=== PATIENT | male | born 1945 | race Caucasian/White ===

== ENCOUNTER 2019-12-24 12:02 | Outpatient (CLI) | payer MEDICARE, BC, SELFPAY ==
--- NOTE | ~2019-12-24 | XR_ITS ---
XR cervical spine 4-5V DATE: 12/24/2019 12:27 INDICATION: Neck pain and radiculopathy TECHNIQUE: AP, lateral, swimmers, open mouth views COMPARISON: 08/03/2018 cervical spine FINDINGS: Normal alignment of the cervical spine. C1 and C2 are normally aligned and the odontoid pro cess is intact. No fracture, dislocation, locked facet or prevertebral soft tissue swelling. There is mild degenerative disc disease at C4-5 and C5-6 and moderately prominent degenerative diseas e at C6-7. IMPRESSION: Mild degenerative change Reviewed, dictated and finalized at location B. TUBING BACKER IMPRESSION: Mild degenerative change
== END 2019-12-24 12:03 | disposition home or self-care (01) ==
PROVIDERS: PCP Internal Medicine; Visit Provider Pain Medicine Interventional Pain Medicine
DX: M54.12 Radiculopathy, cervical region (principal)
CPT/HCPCS: 72050

== ENCOUNTER → 2020-01-10 14:49 | Outpatient (REF) | payer MEDICARE, SELFPAY | LOC: ANHLAB 14:49 | PROVIDERS: PCP Internal Medicine; Visit Provider Nurse Practitioner | DX: D49.2 Neoplasm of unspecified behavior of bone, soft tissue, and skin (principal) | CPT/HCPCS: 88305 ==

== ENCOUNTER 2020-01-12 14:32 | Emergency (ER) | payer MEDICARE, SELFPAY ==
[2020-01-12] VITALS (8 sets, daily range): BP systolic 130–168; BP diastolic 57–77; PULSE 57–80; RESP 11–16; TEMP 36.7; O2SAT 92–98
--- NOTE | ~2020-01-12 | CT_ITS ---
EXAMINATION: CT abdomen pelvis w con EXAM DATE: 01/12/2020 16:37 INDICATION: Epigastric pain. TECHNIQUE: Spiral CT of the abdomen and pelvis was performed following intravenous injection of 100 m L Omnipaque 350. Axial, coronal and sagittal images were reviewed. The dose-length product (DLP) fo r this examination was 1655.26 mGy-cm. The exposure was tailored according to patient size (auto mA exposure control), and iterative reconstruction (ASIR) was used as additional dose reduction techniqu e. There is no prior study for comparison. FINDINGS: There is hepatic steatosis without suspicious focal lesion identified. Spleen, adrenal glan ds, pancreas are unremarkable. There are cholecystectomy clips. Portal and splenic veins are patent . Kidneys enhance symmetrically. There is no hydronephrosis. There are prostate radiation seeds. The bladder is unremarkable. There is no retroperitoneal or pelvic lymphadenopathy. There is mild scattered arteriosclerotic disease. Possible identification of an unremarkable appendix. No pericecal inflammation. The stomach and smal l bowel are unremarkable. There is mild sigmoid colonic diverticulosis. There is no adjacent inflamm atory change to suggest diverticulitis. No free intraperitoneal gas. The heart is normal in size. There are no pericardial or pleural effusions. The lung bases are unremarkable. There are no osteo blastic or osteolytic lesions identified. Right posterior pedicular screws L4-5. IMPRESSION: 1. No acute intra-abdominal findings. 2. Mild sigmoid diverticulosis. 3. Hepatic steatosis. Reviewed, dictated and finalized at location B. TRUCTION MGR
--- NOTE | ~2020-01-12 | US_ITS ---
EXAMINATION: US scrotum doppler DATE: 01/12/2020 15:14 INDICATION: Bilateral testicular pain. TECHNIQUE: Grayscale and Doppler ultrasound images of the testes were obtained. COMPARISON: None. FINDINGS: The right testis measures 3.4 x 2.4 x 1.9 cm. The left testis measures 2.7 x 3.9 x 1.5 cm. There is normal vascular flow to both testes. The right epididymis is normal with normal vascular guillermo w. The left epididymis is normal with normal vascular flow. There is no varicocele or hydrocele. IMPRESSION: 1. Normal testes. Reviewed, dictated and finalized at location A. ING MACHINE ADJUSTER IMPRESSION: 1. Normal testes.
--- NOTE | 2020-01-12 14:40 | ED.NAVMDI ---
HPI - Nausea/Vomiting/Diarrhea General Chief complaint: Abdominal Pain Stated complaint: NAUSEA X3D Time Seen by Provider: 01/12/20 14:33 Source: patient, family and RN notes reviewed Mode of arrival: wheelchair Limitations: no limitations History of Present Illness HPI Narrative: A 74 y/o male presents to the ED from Dr. Pretty office with ANDRÉS testicle and scrotal pain for the past couple days. He states that he had a abscess removed from around his rectum 2 days ago. He reports that he has been having a decreased appetite, a subjective fever, chills, nausea, and upper ABD pain for the past couple days. He denies any dysuria, hematuria, CP, vomiting, diarrhea had a abscess removed 2 days ago by urinating less and dry mouth prostates cancer, cardiac cath with stent, DM, on plavix hasn't been able to take his meds for 2 days Related Data Home Medications Medication Instructions Recorded Confirmed albuterol sulfate 90 mcg/actuation g INHALATION 11/08/19 aerosol inhaler atorvastatin 40 mg tablet 40 mg PO tablet 11/08/19 cholestyramine-aspartame 4 gram 4 gm PO gm 11/08/19 oral powder clopidogrel 75 mg tablet 75 mg PO tablet 11/08/19 glimepiride 2 mg tablet 2 mg PO tablet 11/08/19 hydrochlorothiazide 25 mg tablet 25 mg PO tablet 11/08/19 hydrocodone 7.5 mg-acetaminophen 1 tablet PO tablet 11/08/19 325 mg tablet isosorbide mononitrate 30 mg tablet PO 11/08/19 tablet,extended release 24 hr lisinopril 10 mg tablet 10 mg PO tablet 11/08/19 methotrexate sodium 2.5 mg tablet 2.5 mg PO tablet 11/08/19 midodrine 5 mg tablet 5 mg PO tablet 11/08/19 omeprazole 40 mg capsule,delayed 40 mg PO cap 11/08/19 release Allergies Allergy/AdvReac Type Severity Reaction Status Date / Time fentanyl Allergy Unknown Itching Verified 01/12/20 14:07 tramadol Allergy Unknown Itching Verified 01/12/20 14:07 [facility] Past Medical History Medical History Abdominal pain Abscess, gluteal, right Anxiety Arthritis Biliary tract disease BMI 37.0-37.9, adult Bronchitis Depression Diabetic neuropathy DM (diabetes mellitus) GERD (gastroesophageal reflux disease) H/O: HTN (hypertension) History of heart attack mild x2. History of inguinal hernia History of rectal polyps Hx of hemorrhoids Hypercholesteremia Hyperlipidemia Nausea Proctitis Prostate CA Rheumatoid arthritis Sciatica Sleep apnea Ulcer Surgical History Surgical History H/O cataract removal with insertion of prosthetic lens History of cholecystectomy History of inguinal hernia repair History of rectal polypectomy History of tonsillectomy History of vasectomy Hx of bilateral cataract extraction Hx of cardiac cath Hx of heart artery stent Hx of spinal fusion x2. Family History Family History Father Asthma Family history of cardiovascular disease Mother Family history of cardiovascular disease Family history of arthritis Family history of Alzheimer's disease Family history of malignant neoplasm of kidney Other Diabetes mellitus Hypertension Social History Social History Smoking status: Former smoker Smoking end date: 11/17/89 Alcohol intake: current Gender identity (if verbalized by the patient): Male Discharge Plan Discharge Prescriptions: No Action hydrocodone-acetaminophen 7.5-325 mg tablet 1 tablet PO RF: 0 midodrine 5 mg tablet 5 mg PO RF: 0 glimepiride 2 mg tablet 2 mg PO RF: 0 atorvastatin 40 mg tablet 40 mg PO RF: 0 methotrexate sodium 2.5 mg tablet 2.5 mg PO RF: 0 isosorbide mononitrate 30 mg tablet extended release 24 hr PO RF: 0 omeprazole 40 mg capsule,delayed release(DR/EC) 40 mg PO RF: 0 lisinopril 10 mg tablet 10 mg PO RF: 0 hydrochlorothiazide
--- NOTE | 2020-01-12 15:25 | ED.MALEGU ---
HPI - Male Genitourinary General Chief complaint: Abdominal Pain Stated complaint: NAUSEA X3D Time Seen by Provider: 01/12/20 14:33 Source: patient, family and RN notes reviewed Mode of arrival: wheelchair Limitations: no limitations History of Present Illness HPI Narrative: A 74 y/o male presents to the ED from Dr. Pretty office with worsening ANDRÉS testicle for the past couple days. He states that he had a perirectal abscess removed 3 days ago. He reports that he has been having a decreased appetite, dry mouth, a subjective fever, chills, nausea, and upper ABD pain for the past couple days. He notes that he is supposed to be taking Plavix and medication for his DM, but that for the past 2 days he has not been able to take them because he has felt too nauseas. He denies any dysuria, hematuria, CP, vomiting, or diarrhea. MD Complaint: testicle pain (ANDRÉS) Onset (ago): day(s) (a couple) Duration: progressively worsening Location: right testicle and left testicle Context: recent surgery Associated symptoms: Reports fever (subjective), nausea/vomiting (no vomiting) and other (decreased appetite, dry mouth, chills, and upper ABD pain) Related Data Home Medications Medication Instructions Recorded Confirmed albuterol sulfate 90 mcg/actuation g INHALATION 11/08/19 aerosol inhaler atorvastatin 40 mg tablet 40 mg PO tablet 11/08/19 cholestyramine-aspartame 4 gram 4 gm PO gm 11/08/19 oral powder clopidogrel 75 mg tablet 75 mg PO tablet 11/08/19 glimepiride 2 mg tablet 2 mg PO tablet 11/08/19 hydrochlorothiazide 25 mg tablet 25 mg PO tablet 11/08/19 hydrocodone 7.5 mg-acetaminophen 1 tablet PO tablet 11/08/19 325 mg tablet isosorbide mononitrate 30 mg tablet PO 11/08/19 tablet,extended release 24 hr lisinopril 10 mg tablet 10 mg PO tablet 11/08/19 methotrexate sodium 2.5 mg tablet 2.5 mg PO tablet 11/08/19 midodrine 5 mg tablet 5 mg PO tablet 11/08/19 omeprazole 40 mg capsule,delayed 40 mg PO cap 11/08/19 release Allergies Allergy/AdvReac Type Severity Reaction Status Date / Time fentanyl Allergy Unknown Itching Verified 02/26/20 15:24 tramadol Allergy Unknown Itching Verified 01/12/20 15:24 Review of Systems Review of Systems: All systems reviewed & are unremarkable except as noted in HPI and below Constitutional: Constitutional: Reports chills, Reports fever(s) (subjective) and Reports poor appetite ENT: Reports dry mouth Cardiovascular: Cardiovascular: Denies chest pain Gastrointestinal: Gastrointestinal: Reports abdominal pain (upper), Denies diarrhea, Reports nausea and Denies vomiting Genitourinary: Genitourinary: Denies hematuria, Denies dysuria and Reports testicular pain (ANDRÉS) [facility] Past Medical History Medical History Abdominal pain Abscess, gluteal, right Anxiety Arthritis Biliary tract disease BMI 37.0-37.9, adult Bronchitis Depression Diabetic neuropathy DM (diabetes mellitus) GERD (gastroesophageal reflux disease) H/O: HTN (hypertension) History of heart attack mild x2. History of inguinal hernia History of rectal polyps Hx of hemorrhoids Hypercholesteremia Hyperlipidemia Nausea Proctitis Prostate CA Rheumatoid arthritis Sciatica Sleep apnea Ulcer Surgical History Surgical History H/O cataract removal with insertion of prosthetic lens History of cholecystectomy History of inguinal hernia repair History of rectal polypectomy History of tonsillectomy History of vasectomy Hx of bilateral cataract extraction Hx of cardiac cath Hx of heart artery stent Hx of spinal fusion x2. Family History Family History Father Asthma Family history of cardiovascular disease Mother Family history of cardiovascular disease Family history of arthritis Family history of Alzheimer's disease Family history of malignant neoplasm of kidney
[2020-01-12] MEDS: SODIUM CHLORIDE 0.9% IV 1,000 ML 999 ML IV CONT (15:37)
[2020-01-12] MEDS: ONDANSETRON INJ 4 MG/2 ML VIAL IV PUSH (15:38)
[2020-01-12] MEDS: MORPHINE SULFATE 4 MG/ML INJ IV PUSH (15:42)
[2020-01-12 15:47] LABS: Basophils Percent Auto 0.3 % (0.2-1.2); Eosinophils Percent Auto 0.5 % (0-4.4); Hematocrit 40.9 % (42.0-52.0); Hemoglobin 13.7 g/dL (14.0-18.0); Immature Granulocyte Absolute 0.03 K/mm3 (0.00-0.031); Immature Granulocyte Percent A 0.4 % (0-0.5); Lymphocytes Absolute Auto 0.37 K/mm3 (0.9-3.2); Mean Corpuscular HGB Conc 33.5 g/dl (32-36); Mean Corpuscular Hemoglobin 29.8 pg (26-34); Mean Corpuscular Volume 89.1 fl (80-100); Mean Platelet Volume 9.7 fl (7.4-10.4); Monocytes Absolute Auto 0.7 K/mm3 (0.1-0.6); Neutrophils Absolute Auto 6.2 K/mm3 (1.3-6.7); Neutrophils Percent Auto 83.8 % (45.5-73.1); Platelet Count Result 239 k/mm3 (150-375); Red Blood Count 4.59 M/mm3 (4.6-6.20); Red Cell Distribution Width 15.5 % (11.5-14.5); White Blood Count 7.4 K/mm3 (4.5-10.0)
[2020-01-12 15:53] LABS: Alanine Aminotransferase 30 U/L (4-50); Albumin Level 4.3 g/dL (3.5-5.1); Alkaline Phosphatase 119 U/L (38-126); Aspartate Amino Transferase 32 U/L (17-59); Bilirubin,Total 0.7 mg/dL (0.2-1.3); Blood Urea Nitrogen 20 mg/dL (9-20); Calcium 9.5 mg/dL (8.4-10.2); Carbon Dioxide 27 mmol/L (22-30); Chloride 97 mmol/L (98-107); Estimated CRCL calculation 78 ml/min; Estimated Glomerular Filt Rate > 60; Glucose 191 mg/dL (75-110); Lipase 63 U/L (23-300); Potassium 4.4 mmol/L (3.4-5.0); Sodium 136 mmol/L (137-145)
[2020-01-12 15:54] LABS: Lactic Acid Reflex 1.2 mmol/L (0.7-2.1)
[2020-01-12 16:29] LABS: Prothrombin Time 13.1 Seconds (11.1-14.7)
[2020-01-12 16:30] LABS: Partial Thromboplastin Time 29.5 SECONDS (22.3-36.8)
[2020-01-12] MEDS: SODIUM CHLORIDE 0.9% IV 1,000 ML 999 ML (17:13)
[2020-01-12 17:14] LABS: Add Urine Microscopic? YES; Appearance Urine Clear (Clear); Bilirubin Urine Negative (Negative); Blood Urine Negative (Negative); Color Urine Yellow (Yellow); Glucose Urine UA 3+ mg/dL (Negative); Ketones Urine 1+ mg/dL (Negative); Leukocyte Esterase Ur Negative LEU/UL (Negative); Mucus Urine Rare /lpf; Nitrate Urine Negative (Negative); Protein Urine Negative (Negative); RBC Urine 0-2 /hpf (0-2); Urobilinogen Urine Negative mg/dL (<2.0); WBC Urine 0-3 /hpf
== END 2020-01-12 18:57 | disposition home or self-care (01) ==
PROVIDERS: Emergency Provider Emergency Medicine; PCP Internal Medicine
DX: R10.13 Epigastric pain (principal); N50.812 Left testicular pain; N50.811 Right testicular pain; Z87.891 Personal history of nicotine dependence; F41.9 Anxiety disorder, unspecified; M19.90 Unspecified osteoarthritis, unspecified site; F32.9 Major depressive disorder, single episode, unspecified; E11.42 Type 2 diabetes mellitus with diabetic polyneuropathy; K21.9 Gastro-esophageal reflux disease without esophagitis; E78.5 Hyperlipidemia, unspecified; G47.30 Sleep apnea, unspecified
CPT/HCPCS: 36415; 74177; 76870; 80053; 81001; 83605; 83690; 85025; 85610; 85730; 87804; 93976; 96361; 96374; 96375; 99284; J2270; J2405; J7030; Q9967

== ENCOUNTER 2020-01-21 11:48 | Inpatient (IN) | payer MEDICARE, SELFPAY ==
--- NOTE | 2020-01-21 12:55 | ADMGEN ---
This patient, Kameron Man, was admitted to [facility] Surg Room 300-01. Patient/family oriented to hospital policies and general routines including ID bracelet, bed and alarms, visiting hours, pain management, procedures, bathroom and other care routines, personal items, smoking policy, room service/diet, and visiting hours. Valuables list has been completed. Information on how to activate the Rapid Response Team has been discussed. Patient/Family are encouraged to report perceived risks to care and to ask questions if they do not understand what they are told or what they should do.
[2020-01-21 13:02] LABS: Basophils Percent Auto 0.4 % (0.2-1.2); Eosinophils Absolute Auto 0.1 K/mm3 (0-0.3); Eosinophils Percent Auto 1.6 % (0-4.4); Hematocrit 39.3 % (42.0-52.0); Hemoglobin 13.1 g/dL (14.0-18.0); Immature Granulocyte Absolute 0.04 K/mm3 (0.00-0.031); Immature Granulocyte Percent A 0.6 % (0-0.5); Lymphocytes Absolute Auto 0.36 K/mm3 (0.9-3.2); Lymphocytes Percent Auto 5.4 % (18.3-44.2); Mean Corpuscular HGB Conc 33.3 g/dl (32-36); Mean Corpuscular Hemoglobin 29.4 pg (26-34); Mean Corpuscular Volume 88.3 fl (80-100); Mean Platelet Volume 9.8 fl (7.4-10.4); Monocytes Absolute Auto 0.6 K/mm3 (0.1-0.6); Monocytes Percent Auto 8.8 % (2.6-8.5); Neutrophils Absolute Auto 5.5 K/mm3 (1.3-6.7); Neutrophils Percent Auto 83.2 % (45.5-73.1); Platelet Count Result 267 k/mm3 (150-375); Red Blood Count 4.45 M/mm3 (4.6-6.20); Red Cell Distribution Width 15.5 % (11.5-14.5); White Blood Count 6.7 K/mm3 (4.5-10.0)
[2020-01-21 13:17] LABS: Alanine Aminotransferase 28 U/L (4-50); Albumin Level 4.2 g/dL (3.5-5.1); Alkaline Phosphatase 111 U/L (38-126); Aspartate Amino Transferase 30 U/L (17-59); Bilirubin,Total 0.5 mg/dL (0.2-1.3); Blood Urea Nitrogen 17 mg/dL (9-20); CRP 0.9 mg/dL (<1.0); Calcium 9.1 mg/dL (8.4-10.2); Carbon Dioxide 27 mmol/L (22-30); Chloride 100 mmol/L (98-107); Estimated Glomerular Filt Rate > 60; Glucose 201 mg/dL (75-110); Potassium 4.7 mmol/L (3.4-5.0); Sodium 136 mmol/L (137-145)
[2020-01-21 14:00] VITALS: BP 135/71; PULSE 65; RESP 18; TEMP 36.2; O2SAT 99
[2020-01-21 14:40] LABS: Glucose Point of Care 182 (65-105)
[2020-01-21 15:45] VITALS: BP 153/73; PULSE 85; RESP 18; TEMP 36.5; O2SAT 100
--- NOTE | 2020-01-21 17:00 | PM.IMHP ---
H&P: HPI History of Present Illness Chief complaint: Anorexia, nausea, abdominal pain. Narrative: Kameron Man is a pleasant 74-year-old male with multiple medical problems including coronary artery disease with history of stents, hypertension, rheumatoid arthritis, prostate cancer with history of external radiation, insulin-dependent type 2 diabetes mellitus, obstructive sleep apnea, and chronic back pain who is being directly admitted from Dr. Pretty' office for further evaluation of anorexia, nausea, and abdominal pain. On January 10, 2020, he had a ruptured epidermal inclusion cyst excised from the right buttock, and at that time he was experiencing some nausea. Unfortunately, the nausea has persisted and is now a daily occurrence, at times severe. His appetite has been extremely poor, and he reports an 11 pound weight loss since that time. He saw Dr. Pretty in follow-up on January 12, and he was concerned that the patient was becoming dehydrated and thus referred him to the emergency department. A CT of the abdomen pelvis showed no acute findings. The patient also mentioned some discomfort in his left testicle, and a subsequent scrotal ultrasound was performed which was also unremarkable. He received 2 liters of IV fluids and antiemetics, and felt somewhat better on discharge. That night when he got home, however, he had an episode of emesis and the pattern continued, with severe nausea and poor oral intake. He saw Dr. Pretty again on January 14 and he was started on Levaquin for suspected epididymitis given tenderness on exam. After the 1st couple of days of Levaquin, he thought he was feeling a bit better, but his symptoms have since returned. It should be noted that he was on doxycycline prior to the Levaquin, presumably for the ruptured cyst on his buttock. In any regard, we were contacted today to directly admit the patient to the hospital for further workup. At the time my evaluation, the patient is sitting at the side of the bed and is trying to eat soup and Jell-O. He seems depressed and even a bit despondent. When I bring this up, he does admit that he has been getting the ?blahs and tells me that sometimes I will cry at the drop of a hat.? In fact, he was started on Cymbalta several weeks due to this. He cannot pinpoint any certain event, and it sounds more so like a culmination of things, including his chronic medical problems and chronic pain. He is not certain that his symptoms are related to the ?blahs or the Cymbalta, and states that he has been on Cymbalta previously without issue. Due to the ongoing nausea, he has been concerned about dehydration and has been trying to stay hydrated by drinking Poweraid and diet tamia lilian. With further questioning, he reports discomfort in the epigastrium that he has a difficult time describing. It is not necessarily a burning or gnawing sensation. It does not radiate and he gives no significant alleviating or aggravating factors. He does not see any relation to food. He has a history of GERD for which he takes omeprazole, but he goes on to say that he does not think that this is GERD. He will occasionally have dysphagia, mainly with pills, but denies concerns for aspiration. He had a couple of loose stools yesterday but did have a formed stool this morning. He also mentions discomfort of the left testicle when sitting, and says he has had several occurrences of left-sided epididymitis over the years. He has not had fever but did have chills last week. He denies hematemesis, melena, and hematochezia. No dysuria or hematuria. He has no history of peptic ulcer. He does not consume caffeine or alcohol in significant quantities. He is on a baby aspirin and Plavix daily, but denies other NSAID use. Review of Systems Review of Systems: Narrative: Twelve systems were reviewed with pertinent positives and negatives as per HPI. Chills last week but no documented fever. He denies sinus congestion
[2020-01-21 17:30] VITALS: BP 140/69; PULSE 88; RESP 18; TEMP 36.5; O2SAT 100
[2020-01-21 17:45] VITALS: BP 126/69; PULSE 100; RESP 18; TEMP 36.4; O2SAT 100
[2020-01-21 19:01] LABS: Glucose Point of Care 158 (65-105)
[2020-01-21] MEDS: MIDODRINE HCL 2.5 MG TABLET 5 MG PO (20:43)
[2020-01-21] MEDS: INSULIN HUMAN ISOPHAN/REGULAR 70/30 (*BKC) 100 UNITS/ML 80 UNITS SUB-Q (20:43)
[2020-01-21] MEDS: GABAPENTIN 300 MG CAPSULE 900 MG PO (20:44)
[2020-01-21] MEDS: GLIMEPIRIDE 2 MG TABLET PO (20:44)
[2020-01-21] MEDS: calcium polycarbophiL 625 MG TABLET PO (20:44)
[2020-01-21] MEDS: PANTOPRAZOLE SODIUM IV 40 MG VIAL IV PUSH (20:44)
[2020-01-21] MEDS: SODIUM CHLORIDE 0.9% IV 1,000 ML 100 ML IV CONT (20:58)
[2020-01-21 22:00] VITALS: BP 110/61; PULSE 75; RESP 20; TEMP 37; O2SAT 95; BMI 42.2
[2020-01-21 22:25] LABS: Glucose Point of Care 147 (65-105)
--- NOTE | 2020-01-21 23:40 | PCRCNOTE ---
patient refused use of hospital cpap/bipap unit; pt stated that he can not tolerate his home unit and that he has not used it in years
[2020-01-22 00:59] LABS: Add Urine Microscopic? YES; Appearance Urine Clear (Clear); Bilirubin Urine Negative (Negative); Blood Urine Negative (Negative); Color Urine Straw (Yellow); Glucose Urine UA 3+ mg/dL (Negative); Ketones Urine Negative (Negative); Leukocyte Esterase Ur Negative LEU/UL (Negative); Mucus Urine Rare /lpf; Nitrate Urine Negative (Negative); Protein Urine Negative (Negative); Urobilinogen Urine Negative mg/dL (<2.0); WBC Urine 0-3 /hpf
[2020-01-22 05:32] LABS: Glucose Point of Care 73 (65-105)
[2020-01-22 06:00] VITALS: BP 123/63; PULSE 70; RESP 20; TEMP 36.6; O2SAT 94
[2020-01-22 06:27] LABS: Hematocrit 36.5 % (42.0-52.0); Mean Corpuscular HGB Conc 32.9 g/dl (32-36); Mean Corpuscular Hemoglobin 29.2 pg (26-34); Mean Corpuscular Volume 88.8 fl (80-100); Platelet Count Result 243 k/mm3 (150-375); Red Blood Count 4.11 M/mm3 (4.6-6.20); Red Cell Distribution Width 15.4 % (11.5-14.5)
[2020-01-22 06:39] LABS: Blood Urea Nitrogen 14 mg/dL (9-20); Calcium 8.8 mg/dL (8.4-10.2); Carbon Dioxide 29 mmol/L (22-30); Chloride 102 mmol/L (98-107); Estimated CRCL calculation 89 ml/min; Estimated Glomerular Filt Rate > 60; Glucose 70 mg/dL (75-110); Potassium 3.6 mmol/L (3.4-5.0); Sodium 136 mmol/L (137-145)
[2020-01-22] MEDS: ATORVASTATIN 40 MG TABLET PO (09:01)
[2020-01-22] MEDS: ASPIRIN 81 MG ENTERIC TABLET PO (09:01)
[2020-01-22] MEDS: MULTIVITAMINS THERAPEUTIC TAB (*BKC) 1 TABLET PO (09:01)
[2020-01-22] MEDS: CHOLECALCIFEROL 1,000 UNIT TABLET 2000 UNITS PO (09:01)
[2020-01-22] MEDS: calcium polycarbophiL 625 MG TABLET PO ×2 (09:01→17:13)
[2020-01-22] MEDS: OMEGA 3 POLYUNSAT FATTY ACIDS 1 GM CAP PO (09:01)
[2020-01-22] MEDS: MIDODRINE HCL 2.5 MG TABLET 5 MG PO ×2 (09:01→20:49)
[2020-01-22] MEDS: FOLIC ACID 0.4 MG TABLET 0.8 MG PO (09:01)
[2020-01-22] MEDS: CLOPIDOGREL BISULFATE 75 MG TABLET PO (09:02)
[2020-01-22] MEDS: GABAPENTIN 300 MG CAPSULE 900 MG PO ×2 (09:02→20:49)
[2020-01-22] MEDS: lisinopriL 10 MG TABLET PO (09:02)
[2020-01-22] MEDS: PANTOPRAZOLE SODIUM IV 40 MG VIAL IV PUSH ×2 (09:03→20:49)
[2020-01-22] MEDS: INSULIN HUMAN ISOPHAN/REGULAR 70/30 (*BKC) 100 UNITS/ML 50 UNITS SUB-Q (09:13)
--- NOTE | 2020-01-22 09:14 | WPDURCON ---
Assessment and Plan Assessment and plan (1) Prostate cancer: Code(s): C61 - Malignant neoplasm of prostate Status: Acute Assessment and Plan: S/P pelvic radiation 07/2017. (2) Chronic epididymitis: Code(s): N45.1 - Epididymitis Status: Acute Assessment and Plan: Left orchalgia consistent with chronic left epididymitis. This is a problem that is plagued him intermittently over the past 2-3 years. I doubt that has anything to do with his generalized abdominal pain, anorexia and other current problems Long discussion with patient and we will consider a left epididymectomy [id number], once he has recuperated from current illness. Urology Consult Note HPI Date Seen: 01/22/20 Requesting Physician: Brianna Tinajero PA-C Primary Care Provider: Eric Pretty MD Consult Narrative Narrative: Kameron Man is a pleasant 76-year-old man well known to me with a history of prostate carcinoma treated with pelvic radiation and androgen deprivation in 2017. Urologically, he has done well from that standpoint, but has intermittent episodes of left epididymitis. He is admitted on this occasion with an atypical abdominal pain anorexia and nausea. However, he can he complains also of left testicular pain radiating into his left inguinal canal. He denies dysuria or urgency frequency or hematuria. Review of Systems Constitutional: Constitutional: Denies chills, Denies fatigue, Denies fever(s) and Denies headache(s) Eyes: Eyes: Denies blurry vision ENT: Denies vertigo, Denies dizziness, Denies headache(s) and Denies sore throat Cardiovascular: Cardiovascular: Denies chest pain, Denies syncope, Denies lightheadedness, Denies palpitations, Denies dyspnea and Denies dyspnea on exertion Respiratory: Respiratory: Denies hemoptysis, Denies dyspnea and Denies dyspnea on exertion Gastrointestinal: Gastrointestinal: Denies melena, Reports bloating, Denies hematochezia, Denies change in bowel habits, Denies change in stool character, Denies constipation, Denies diarrhea, Reports nausea and Denies vomiting Genitourinary: Genitourinary: Denies hematuria, Reports genital pain (left testicle), Denies dysuria, Denies testicular pain, Denies urinary frequency, Denies urinary hesitancy and Denies urinary urgency Integumentary/Breasts: Skin/Breast: Denies pruritus, Denies lesions and Denies rash Neurologic: Denies confusion, Denies vertigo, Denies dizziness, Denies syncope and Denies headache(s) Psychiatric: Psychiatric: Denies anxiety, Denies change in appetite and Denies confusion Endocrine: Endocrine: Denies fatigue and Denies palpitations PMFSH Past Medical History Medical History Benign prostatic hyperplasia Chronic anemia Chronic, continuous use of opioids Due to chronic lumbago. Colon polyps Coronary artery disease With history of stent to the mid LAD in November 2015. Cardiac catheterization in May 2017 showed a patent LAD stent and 90% ostial stenosis in a 3rd diagonal, which was a small vessel and jailed by previous stent. No other high-grade lesions were noted. Reportedly, he had a stent in November 2019 done at [facility] in [place]. Depression with anxiety Dyslipidemia Failed back syndrome of lumbar spine GERD (gastroesophageal reflux disease) Hypertension Insulin dependent type 2 diabetes mellitus With diabetic peripheral neuropathy. Hemoglobin A1c was 8.8% in May 2019. Obstructive sleep apnea on CPAP Osteoarthritis Prostate CA Status post external radiation. Rheumatoid arthritis Surgical History Surgical History Hx of heart artery stent Status post cataract extraction Status post cholecystectomy Status post inguinal hernia repair Status post lumbar spine operation X2. Status post tonsillectomy Status post vasectomy Family History Family History (Reviewed
[2020-01-22 09:47] LABS: Glucose Point of Care 104 (65-105)
[2020-01-22] MEDS: NEOMYCIN/POLYMYXIN/BACITRACIN OINTMENT 15 GM TUBE 1 APPLIC TOPICAL (10:54)
[2020-01-22 12:04] LABS: Glucose Point of Care 163 (65-105)
[2020-01-22] MEDS: DULOXETINE HCL 30 MG CAPSULE.DR PO (12:59)
[2020-01-22 14:39] VITALS: BP 104/55; PULSE 71; RESP 18; TEMP 37; O2SAT 95
--- NOTE | 2020-01-22 15:50 | ECG_ITS ---
Measurements Intervals [place] Rate: 54 P: 72 IN: 226 QRS: -88 QRSD: 174 T: -4 QT: 511 QTc: 486 Interpretive Statements SINUS BRADYCARDIA WITH SINUS ARRHYTHMIA WITH FIRST DEGREE AV BLOCK LEFT AXIS DEVIATION RIGHT BUNDLE BRANCH BLOCK BASELINE ARTIFACT- V1-V3 ABNORMAL ECG Electronically Signed On 01-23-2020 8:16:56 CDT by Woo Daniels D.O.
[2020-01-22 16:00] VITALS: PULSE 71
--- NOTE | 2020-01-22 16:13 | P.PNIM_ITS ---
Progress Note: A&P Assessment and Plan (1) Chest pain: Code(s): R07.9 - Chest pain, unspecified Status: Acute Assessment and Plan: * Upon my initial evaluation the patient denied any chest pain issues. * I was called back into the room less than 30 minutes later to be informed that he had some chest tightness after I had finished talking with him and he was walking back from the bathroom. * The patient reports it was a tightness in his chest denied any other associated symptoms with it. * He is now currently reporting some heartburn symptoms and will give Mylanta. * A stat EKG was ordered for further cardiac evaluation along his telemetry monitoring overnight. * The patient recently had a stent placed in November 2019 at [facility] with his [employer] [facility] consultant. * Continue monitoring patient's symptoms. (2) Epigastric pain: Code(s): R10.13 - Epigastric pain Status: Acute Assessment and Plan: * Concern for gastritis or even peptic ulcer given history. * Will start Protonix b.i.d. * Patient tolerated clear liquid, full liquid diet and regular diet well today. He initially reported no symptoms other than slight epigastric discomfort. * The patient like to stay overnight and see the GI specialist for further evaluation on his abdominal discomfort. Will continue monitoring the patient's symptoms and GI's input is greatly appreciated. (3) Anorexia: Code(s): R63.0 - Anorexia Status: Acute Assessment and Plan: * Patient reports an 11 pound weight loss in the past several weeks due to such. * Recently started back on Cymbalta, which could cause GI upset but patient has taken this before and denies having previous, similar symptoms while on that drug. * Plan as detailed above. (4) Insulin dependent type 2 diabetes mellitus: Code(s): E11.9 - Type 2 diabetes mellitus without complications; Z79.4 - MCFP (current) use of insulin Status: Acute Assessment and Plan: * Continue basal insulin. * Serum glucose this morning was 70. The patient denies any lightheadedness, dizziness or nausea associated with hypoglycemia. * Initiate sliding scale insulin, Accu-Cheks, and hypoglycemic protocol. (5) Depression with anxiety: Code(s): F41.8 - Other specified anxiety disorders Status: Acute Assessment and Plan: * Patient recently started back on Cymbalta, which he has taken before. * Reports a good support system. * He denies suicidal thoughts. (6) Hypertension: Code(s): I10 - Essential (primary) hypertension Status: Acute Assessment and Plan: * Blood pressures were reviewed and they are stable and well controlled. * Continue antihypertensives and monitor daily. (7) Left testicular pain: Code(s): N50.812 - Left testicular pain Status: Acute Assessment and Plan: * Upon arrival he was on Levaquin for suspected epididymitis. * Scrotal ultrasound done several weeks ago was unremarkable. * He is afebrile with a normal CRP and white count, I will hold on antibiotics. * Urology, Dr. White evaluated the patient today reports he has chronic epididymitis and he needs a follow-up in the office in the next few weeks for further evaluation and treatment options
--- NOTE | 2020-01-22 16:13 | PM.IMPN ---
Progress Note: A&P Assessment and Plan (1) Chest pain: Code(s): R07.9 - Chest pain, unspecified Status: Acute Assessment and Plan: Upon my initial evaluation the patient denied any chest pain issues. I was called back into the room less than 30 minutes later to be informed that he had some chest tightness after I had finished talking with him and he was walking back from the bathroom. The patient reports it was a tightness in his chest denied any other associated symptoms with it. He is now currently reporting some heartburn symptoms and will give Mylanta. A stat EKG was ordered for further cardiac evaluation along his telemetry monitoring overnight. The patient recently had a stent placed in November [address] 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 Continue monitoring patient's symptoms. (2) Epigastric pain: Code(s): R10.13 - Epigastric pain Status: Acute Assessment and Plan: Concern for gastritis or even peptic ulcer given history. Will start Protonix b.i.d. Patient tolerated clear liquid, full liquid diet and regular diet well today. He initially reported no symptoms other than slight epigastric discomfort. The patient like to stay overnight and see the GI specialist for further evaluation on his abdominal discomfort. Will continue monitoring the patient's symptoms and GI's input is greatly appreciated. (3) Anorexia: Code(s): R63.0 - Anorexia Status: Acute Assessment and Plan: Patient reports an 11 pound weight loss in the past several weeks due to such. Recently started back on Cymbalta, which could cause GI upset but patient has taken this before and denies having previous, similar symptoms while on that drug. Plan as detailed above. (4) Insulin dependent type 2 diabetes mellitus: Code(s): E11.9 - Type 2 diabetes mellitus without complications; Z79.4 - nursing home (current) use of insulin Status: Acute Assessment and Plan: Continue basal insulin. Serum glucose this morning was 70. The patient denies any lightheadedness, dizziness or nausea associated with hypoglycemia. Initiate sliding scale insulin, Accu-Cheks, and hypoglycemic protocol. (5) Depression with anxiety: Code(s): F41.8 - Other specified anxiety disorders Status: Acute Assessment and Plan: Patient recently started back on Cymbalta, which he has taken before. Reports a good support system. He denies suicidal thoughts. (6) Hypertension: Code(s): I10 - Essential (primary) hypertension Status: Acute Assessment and Plan: Blood pressures were reviewed and they are stable and well controlled. Continue antihypertensives and monitor daily. (7) Left testicular pain: Code(s): N50.812 - Left testicular pain Status: Acute Assessment and Plan: Upon arrival he was on Levaquin for suspected epididymitis. Scrotal ultrasound done several weeks ago was unremarkable. He is afebrile with a normal CRP and white count, I will hold on antibiotics. Urology, Dr. White evaluated the patient today reports he has chronic epididymitis and he needs a follow-up in the office in the next few weeks for further evaluation and treatment options. Time Spent With Patient Time with patient: 25 - 35 minutes Subjective Date/time seen: 01/22/20 16:13 Interval history: Date of service 01/22/2020: I initially evaluated the patient around 2:00 p.m. and he informed me that he is feeling much better today. He states he is eating and drinking without any nausea, vomiting and only slight epigastric discomfort. He repor
[2020-01-22 17:03] LABS: Troponin I < 0.012 ng/mL (0.000-0.034)
[2020-01-22] MEDS: MAG HYDROX/AL HYDROX/SIMETH 30 ML UDC PO ×2 (17:14→20:47)
[2020-01-22] MEDS: INSULIN HUMAN ISOPHAN/REGULAR 70/30 (*BKC) 100 UNITS/ML 40 UNITS SUB-Q (17:17)
[2020-01-22 18:22] LABS: Glucose Point of Care 154 (65-105)
[2020-01-22 20:00] VITALS: PULSE 80
[2020-01-22 20:32] VITALS: BP 125/62; PULSE 63; RESP 20; TEMP 37.2; O2SAT 96
[2020-01-22 22:50] LABS: Glucose Point of Care 104 (65-105)
[2020-01-23] VITALS (9 sets, daily range): BP systolic 128–158; BP diastolic 69–77; PULSE 57–83; RESP 18–20; TEMP 36.7–37.1; O2SAT 93–97
--- NOTE | 2020-01-23 01:35 | PC.NURSE ---
Daylight Savings Time For Daylight Savings Time Ending in the Fall - Clocks are moved back. For Daylight Savings Time Beginning in the Spring - Clocks are moved ahead. For [facility], the time of change occurs at 0200 hrs. Time is taken from the sql server developer. This entry on the patient's chart recognizes the change in time reflected during documentation. Example: 2 entries for vital signs may be charted for 0200 hrs.
[2020-01-23 06:55] LABS: Blood Urea Nitrogen 14 mg/dL (9-20); Calcium 8.6 mg/dL (8.4-10.2); Carbon Dioxide 29 mmol/L (22-30); Chloride 102 mmol/L (98-107); Estimated CRCL calculation 89 ml/min; Estimated Glomerular Filt Rate > 60; Glucose 95 mg/dL (75-110); Sodium 137 mmol/L (137-145)
[2020-01-23 07:12] LABS: Potassium 3.7 mmol/L (3.4-5.0)
[2020-01-23] MEDS: lisinopriL 10 MG TABLET PO (09:02)
[2020-01-23] MEDS: calcium polycarbophiL 625 MG TABLET PO ×2 (09:02→16:55)
[2020-01-23] MEDS: OMEGA 3 POLYUNSAT FATTY ACIDS 1 GM CAP PO (09:02)
[2020-01-23] MEDS: CHOLECALCIFEROL 1,000 UNIT TABLET 2000 UNITS PO (09:02)
[2020-01-23] MEDS: ATORVASTATIN 40 MG TABLET PO (09:02)
[2020-01-23] MEDS: MULTIVITAMINS THERAPEUTIC TAB (*BKC) 1 TABLET PO (09:02)
[2020-01-23] MEDS: ASPIRIN 81 MG ENTERIC TABLET PO (09:02)
[2020-01-23] MEDS: CLOPIDOGREL BISULFATE 75 MG TABLET PO (09:03)
[2020-01-23] MEDS: GABAPENTIN 300 MG CAPSULE 900 MG PO ×2 (09:03→20:31)
[2020-01-23] MEDS: MIDODRINE HCL 2.5 MG TABLET 5 MG PO ×2 (09:03→20:31)
[2020-01-23] MEDS: PANTOPRAZOLE SODIUM IV 40 MG VIAL IV PUSH ×2 (09:03→20:31)
[2020-01-23] MEDS: DULOXETINE HCL 30 MG CAPSULE.DR PO (09:03)
[2020-01-23] MEDS: NEOMYCIN/POLYMYXIN/BACITRACIN OINTMENT 15 GM TUBE 1 APPLIC TOPICAL (09:03)
[2020-01-23] MEDS: FOLIC ACID 0.4 MG TABLET 0.8 MG PO (09:03)
[2020-01-23] MEDS: INSULIN HUMAN ISOPHAN/REGULAR 70/30 (*BKC) 100 UNITS/ML 40 UNITS SUB-Q ×2 (09:12→16:59)
[2020-01-23 09:29] LABS: Glucose Point of Care 139 (65-105)
--- NOTE | 2020-01-23 10:47 | WPDUROPN2 ---
Progress Note: A&P Assessment and Plan (1) Chronic epididymitis: Code(s): N45.1 - Epididymitis Status: Acute Assessment and Plan: Left epididymitis/orchalgia unchanged today. Tentatively planning left epididymectomy [id number]. Subjective Subjective Date/Time Seen: 01/23/20 10:47 Left orchalgia/epididymitis. Review of Systems Cardiovascular: Cardiovascular: Denies chest pain, Denies lightheadedness, Denies palpitations and Denies dyspnea Respiratory: Respiratory: Denies dyspnea Gastrointestinal: Gastrointestinal: Denies diarrhea, Denies nausea and Denies vomiting Genitourinary: Genitourinary: Denies hematuria and Denies dysuria Endocrine: Endocrine: Denies palpitations Exam Const: General: no acute distress Resp: Effort & Inspection: normal respiratory effort GI: Inspection: non-distended GI Palp: No abdominal tenderness and No Guarding due to palpation present (GI) Auscultation: normal bowel sounds Objective Data Vital Signs Vital Signs: Vital Signs - 24 hr 01/22/20 14:39 01/22/20 16:00 01/22/20 20:00 Temperature 98.6 F Pulse Rate 71 71 80 Respiratory Rate 18 Blood Pressure 104/55 L Pulse Oximetry 95 01/22/20 20:32 01/23/20 00:00 01/23/20 04:00 Temperature 99 F Pulse Rate 63 79 75 Respiratory Rate 20 Blood Pressure 125/62 Pulse Oximetry 96 01/23/20 07:15 Temperature 98.5 F Pulse Rate 68 Respiratory Rate 20 Blood Pressure 134/69 Pulse Oximetry 93 Intake/Output Intake/Output: Intake & Output 01/20/20 01/21/20 01/22/20 01/24/20 23:59 23:59 23:59 00:59 Intake Total 790 3330 1140 Output Total 450 1800 1300 Balance 340 1530 -160 Meds/Results Medications: Active Medications Generic Name Dose Route Start Last Admin Trade Name Freq PRN Reason Stop Dose Admin Hydrocodone Bitart/Acetaminophen 1 tab 01/21/20 18:39 01/21/20 20:43 [place] 7.5-325 Mg PO 1 tab Q6H PRN Administration Pain (Scale Score 7-10) Al Hydrox/Mg Hydrox/Simethicone 30 ml 01/22/20 16:22 01/22/20 20:47 Mylanta PO 30 ml Q6H PRN Administration Indigestion Aspirin 81 mg 01/22/20 09:00 01/23/20 09:02 Aspirin Ec PO 81 mg DAILY KAYLEEN Administration Atorvastatin Calcium 40 mg 01/22/20 09:00 01/23/20 09:02 Lipitor PO 40 mg QAM KAYLEEN Administration Calcium Polycarbophil 625 mg 01/21/20 18:45 01/23/20 09:02 Fiber Con PO 625 mg BID KAYLEEN Administration Clopidogrel Bisulfate 75 mg 01/22/20 09:00 01/23/20 09:03 Plavix PO 75 mg QAM KAYLEEN Administration Dextrose 12.5 gm 01/21/20 15:46 Dextrose 50% Syringe IV PUSH PRN PRN Hypoglycemia Protocol Diphenhydramine HCl 25 mg 01/21/20 18:39 01/21/20 20:44 Benadryl Cap PO 25 mg Q6H PRN Administration Itching Duloxetine HCl 30 mg 01/22/20 11:10 01/23/20 09:03 Cymbalta PO 30 mg DAILY KAYLENE Administration Fish Oil 1 gm 01/22/20 09:00 01/23/20 09:02 Lovaza PO 1 gm DAILY KAYLEEN Administration Folic Acid 0.8 mg 01/22/20 09:00 01/23/20 09:03 Folic Acid PO 02/21/20 09:01 0.8 mg DAILY KAYLEEN Administration Gabapentin 900 mg 01/21/20 21:00 01/23/20 09:03 Neurontin PO 900 mg Q12HR KAYLEEN Administration Glucagon 1 mg 01/21/20 15:46 Glucagon For Inj IM PRN PRN Hypoglycemia Protocol Glucose 15 gm 01/21/20 15:46 Glutose 15 PO PRN PRN Hypoglycemia Protocol Dextrose 1,000 mls @ 100 mls/hr 01/21/20 15:46 Dextrose 5% 1,000 Ml IVPB PRN PRN Hypoglycemia Protocol Insulin Aspart 3 - 6 units 01/21/20 17:00 01/23/20 09:12 Novolog SUB-Q Not Given TIDWM [facility] Protocol Insulin Human Isoph/Insulin Regular 40 units 01/22/20 16:22 01/23/20 09:12 SUB-Q 40 units DAILY@0800 [facility] Administration Insulin Human Isoph/Insulin Regular 40 units 01/22/20 17:00 01/22/20 17:17 SUB-Q 40 units DAILY@1700 [facility] Administration Lis
--- NOTE | 2020-01-23 11:07 | ECG_ITS ---
Measurements Intervals [place] Rate: 61 P: -85 IL: 178 QRS: -85 QRSD: 170 T: 23 QT: 452 QTc: 459 Interpretive Statements ECTOPIC ATRIAL RHYTHM WITH FIRST DEGREE AV BLOCK ATRIAL PREMATURE COMPLEX LEFT AXIS DEVIATION RIGHT BUNDLE BRANCH BLOCK BASELINE ARTIFACT- II, III, AVR, AVL, AVF, V4, V6 ABNORMAL ECG Electronically Signed On 01-23-2020 15:37:34 CDT by Woo Daniels D.O.
--- NOTE | 2020-01-23 11:11 | PC.NURSE ---
Notified A Peludat of abnormal tele reading and c/o chest pain with ambulation - here on floor to see patient - orders received. Consult placed to Dr Carroll.
[2020-01-23] MEDS: SALINE 0.65% NAS SOLN 44 ML BTL 1 SPRAY NASAL (11:18)
[2020-01-23 11:46] LABS: Troponin I < 0.012 ng/mL (0.000-0.034)
--- NOTE | 2020-01-23 11:59 | WPDGICN ---
Assessment and Plan Additional Plan Dyspepsia with abd pain, nausea, and vomiting. Symptoms have significantly improved. Abd pain is resolving, no further N/V, and pt is tolerating a regular diet. I think his symptoms are multifactorial. A combination of multiple medical problems, medication, and depression. I agree with need for EGD if symptoms do not resolve but need to hold plavix for several days. Since pt. is clinically improving and if he does not need to stay in hospital for any other reasons we could proceed with OP EGD if symptoms persist. If plavix can not be stopped then I would proceed with UGI. Check H pylori. GI Consult Note Consult date/time: 01/23/20 11:59 HPI: Kameron Man is a 74 year old W male who we are asked to see for evaluation of dyspepsia with nausea intermittent vomiting upper abdominal pain occasional cervical dysphagia usually just with pills. Patient has been seen by Dr. Mclean in the past for GI evaluation. Patient did have a gastroscopy and a colonoscopy in 2013 unremarkable EGD. Patient had a subsequent colonoscopy in March of 2018 at which time several adenomatous polyps were removed. He is due for a follow-up colonoscopy in a year. Patient denies any esophageal dysphagia. He has had no hematemesis. He was felt to have dehydration upon admission. He has lost approximately 10 lb in the the past month. The patient has multiple medical problems which will be outlined below. He does have a history of depression and has had some increased symptoms recently secondary to his multiple medical problems. He has no significant abnormalities in his lab at the present time. The patient is on Plavix and did receive a dose this morning. Thus we would not be able to gastroscope him at this time. He would need to be off Plavix for several days. ON LICENSE OF [facility] Past Medical History Medical History Benign prostatic hyperplasia Chronic anemia Chronic, continuous use of opioids Due to chronic lumbago. Colon polyps Coronary artery disease With history of stent to the mid LAD in November 2015. Cardiac catheterization in May 2017 showed a patent LAD stent and 90% ostial stenosis in a 3rd diagonal, which was a small vessel and jailed by previous stent. No other high-grade lesions were noted. Reportedly, he had a stent in November 2019 done at [facility] in [place]. Depression with anxiety Dyslipidemia Failed back syndrome of lumbar spine GERD (gastroesophageal reflux disease) Hypertension Insulin dependent type 2 diabetes mellitus With diabetic peripheral neuropathy. Hemoglobin A1c was 8.8% in May 2019. Obstructive sleep apnea on CPAP Osteoarthritis Prostate CA Status post external radiation. Rheumatoid arthritis Surgical History Surgical History Hx of heart artery stent Status post cataract extraction Status post cholecystectomy Status post inguinal hernia repair Status post lumbar spine operation X2. Status post tonsillectomy Status post vasectomy Family History Family History Father Asthma Family history of cardiovascular disease Mother Family history of cardiovascular disease Family history of arthritis Family history of Alzheimer's disease Family history of malignant neoplasm of kidney Other Diabetes mellitus Hypertension Social History Social History Social History: The patient is and lives with his in [place]. They have 1 son. He quit smoking cigarettes in February of 1989. Over the last several years he started to smoke a pipe, typically 5 to 6 times per day. He drinks perhaps 1 alcoholic beverage a month. No drug use. He designates his , Monika, as his surrogate decision maker. He is listed as a full code. Smoking status: Former s
[2020-01-23 13:16] LABS: Glucose Point of Care 175 (65-105)
--- NOTE | 2020-01-23 13:39 | PM.CNCAR ---
Assessment and Plan Assessment and plan (1) Chest pain: Code(s): R07.9 - Chest pain, unspecified Status: Acute Assessment and Plan: Isolated, resolved, brief somewhat concerning for angina, ruled out for myocardial infarction with negative serial cardiac enzymes. No new ischemic changes on EKG. Continue current medical therapy. Unlikely to tolerate antianginal therapy given orthostatic hypotension and need for midodrine chronically. will monitor patient clinically for the time being. Given recent stent implantation and will need to review coronary angiography associated records. Continue dual antiplatelet therapy, statin. Discussed at length with the patient who verbalized understanding and agreed with plan of care. No indication for ischemic evaluation. Further recommendations to follow after review coronary angiography results. (2) Coronary artery disease: Code(s): I25.10 - Atherosclerotic heart disease of [place] coronary artery without angina pectoris Status: Acute Assessment and Plan: As above, will review cardiac records from [facility] when available with recommendations to follow. Patient is unable to discontinue dual antiplatelet therapy so soon after stent implantation (Nov 2019) on an elective basis. Interventional details will need to be reviewed to fine tune this recommendation. Cont ASA, Clopidogrel, Atorvastatin. Pt will follow up with Dr Young at [facility] upon discharge. (3) RBBB: Code(s): I45.10 - Unspecified right bundle-branch block Status: Acute Assessment and Plan: Chronic. Evidence of underlying conduction system disease. Patient is not currently on beta-azucena/ AV mandi blocking therapy (4) Wandering atrial pacemaker: Code(s): I49.8 - Other specified cardiac arrhythmias Status: Acute Assessment and Plan: We discussed this at length and sxs to monitor. Currently, it appears he is asymptomatic. However, his EKG and telemetry are indicative of underlying conduction system disease. No indication for pacemaker presently. We discussed possibility that his remote history of near syncope, lightheadedness may be in part contributed to intermittent bradycardia, however, he denies any symptoms currently and essentially is asymptomatic with intermittent transient bradycardic response on telemetry this hospitalization. Furthermore, he reports h/o resolution of lightheaded episodes with initiation of Midodrine in the past. Continue clinical observation. Discussed potential benefit for outpatient telemetry monitoring. 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 (5) Orthostatic hypotension: Code(s): I95.1 - Orthostatic hypotension Status: Acute Assessment and Plan: Remains on Midodrine and Lisinopril. Currently, BP stable. Ideally, simplify medical therapy as appropriate as concomitant use of antihypertensives and Midodrine expected to be conterproductive. ambulate with caution to avoid risk for falls and injuries. Avoid dehydration. History of Present Illness History of Present Illness Consult date/time: Date of service: 01/23/20 13:39 This is a cardiology consultation at the request of JAD Gage of the [facility] for our opinion regarding chest pain and abnormal telemetry. Requesting physician: Brianna Tinajero PA-C Consult reason: chest pain and Other (abnormal telemetry/rhythm) Reason For Visit: Anorexia, nausea, abdominal pain. Narrative: Patient is a very pleasant 74-year-old gentleman with a history of coronary disease with previous stent implantation, hypertension, rheumatoid arthritis, type 2 diabetes mellitus with peripheral neuropathy, obstructive sleep apnea, chronic pain who is admitted directly from the office of Dr. Pretty 01/21/20 for complaints of nausea, anorexia and abdominal pain. Recently he wa
--- NOTE | 2020-01-23 13:55 | P.PNIM_ITS ---
Progress Note: A&P Assessment and Plan (1) Chest pain: Code(s): R07.9 - Chest pain, unspecified Status: Acute Assessment and Plan: * 01/22/2020: He had episode of some chest tightness after I had finished talking with him and he was walking back from the bathroom. * 01/23/2020: He reports another episode of chest tightness while walking back from the bathroom today as well. * Troponins were drawn x2 which were both negative. * EKGs were ordered showing sinus bradycardia with first-degree AV block, right bundle branch block otherwise normal. * He is now currently reporting some heartburn symptoms and will give Mylanta. * Tele showed normal sinus rhythm, rate 89 bpm, 1st degree AV block, frequent PACs * I talked with Dr. Gautam Cardiology who evaluated the patient and believes the patient could be having a wandering atrial pacemaker but believes this is not causing his symptoms. * Will obtain records from [facility] and cath from stent placed in November 2019 * Continue monitoring patient's symptoms. (2) Epigastric pain: Code(s): R10.13 - Epigastric pain Status: Acute Assessment and Plan: * Concern for gastritis or even peptic ulcer given history. * Will start Protonix b.i.d. * Tolerating regular diet well today. * TDr. Singh GI specialist evaluated the patient and does not feel an EGD is warranted at this time since his symptoms have improved. He also states that the patient is on Plavix and would need to hold this for 7 days prior to EGD. * This is something he will need to follow-up as an outpatient with Dr. Mclean for further evaluation in the future. Will continue monitoring the patient's symptoms and GI's input is greatly appreciated. (3) Anorexia: Code(s): R63.0 - Anorexia Status: Acute Assessment and Plan: * Patient reports an 11 pound weight loss in the past several weeks due to such. * Recently started back on Cymbalta, which could cause GI upset but patient has taken this before and denies having previous, similar symptoms while on that drug. * Plan as detailed above. 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 * Serum glucose this morning was 95. The patient denies any lightheadedness, dizziness or nausea associated with hypoglycemia. * Initiate sliding scale insulin, Accu-Cheks, and hypoglycemic protocol. (5) Depression with anxiety: Code(s): F41.8 - Other specified anxiety disorders Status: Acute Assessment and Plan: * Patient recently started back on Cymbalta, which he has taken before. * Reports a good support system. * He denies suicidal thoughts. (6) Hypertension: Code(s): I10 - Essential (primary) hypertension Status: Acute Assessment and Plan: * Blood pressures were reviewed and they are stable and well controlled. * Continue antihypertensives and monitor daily. (7) Left testicular pain: Code(s): N50.812 - Left testicular pain Status: Acute Assessment and Plan: * Upon arrival he was on Levaquin for suspected
--- NOTE | 2020-01-23 13:55 | PM.IMPN ---
Progress Note: A&P Assessment and Plan (1) Chest pain: Code(s): R07.9 - Chest pain, unspecified Status: Acute Assessment and Plan: 01/22/2020: He had episode of some chest tightness after I had finished talking with him and he was walking back from the bathroom. 01/23/2020: He reports another episode of chest tightness while walking back from the bathroom today as well. Troponins were drawn x2 which were both negative. EKGs were ordered showing sinus bradycardia with first-degree AV block, right bundle branch block otherwise normal. He is now currently reporting some heartburn symptoms and will give Mylanta. Tele showed normal sinus rhythm, rate 89 bpm, 1st degree AV block, frequent PACs I talked with Dr. Gautam Cardiology who evaluated the patient and believes the patient could be having a wandering atrial pacemaker but believes this is not causing his symptoms. Will obtain records from [facility] and cath from stent placed in November 2019 Continue monitoring patient's symptoms. (2) Epigastric pain: Code(s): R10.13 - Epigastric pain Status: Acute Assessment and Plan: Concern for gastritis or even peptic ulcer given history. Will start Protonix b.i.d. Tolerating regular diet well today. TDr. Singh GI specialist evaluated the patient and does not feel an EGD is warranted at this time since his symptoms have improved. He also states that the patient is on Plavix and would need to hold this for 7 days prior to EGD. This is something he will need to follow-up as an outpatient with Dr. Mclean for further evaluation in the future. Will continue monitoring the patient's symptoms and GI's input is greatly appreciated. (3) Anorexia: Code(s): R63.0 - Anorexia Status: Acute Assessment and Plan: Patient reports an 11 pound weight loss in the past several weeks due to such. Recently started back on Cymbalta, which could cause GI upset but patient has taken this before and denies having previous, similar symptoms while on that drug. Plan as detailed above. (4) Insulin dependent type 2 diabetes mellitus: Code(s): E11.9 - Type 2 diabetes mellitus without complications; Z79.4 - terminal worker (current) use of insulin Status: Acute Assessment and Plan: Continue basal insulin. Serum glucose this morning was 95. The patient denies any lightheadedness, dizziness or nausea associated with hypoglycemia. Initiate sliding scale insulin, Accu-Cheks, and hypoglycemic protocol. (5) Depression with anxiety: Code(s): F41.8 - Other specified anxiety disorders Status: Acute Assessment and Plan: Patient recently started back on Cymbalta, which he has taken before. Reports a good support system. He denies suicidal thoughts. (6) Hypertension: Code(s): I10 - Essential (primary) hypertension Status: Acute Assessment and Plan: Blood pressures were reviewed and they are stable and well controlled. Continue antihypertensives and monitor daily. (7) Left testicular pain: Code(s): N50.812 - Left testicular pain Status: Acute Assessment and Plan: Upon arrival he was on Levaquin for suspected epididymitis. Scrotal ultrasound done several weeks ago was unremarkable. He is afebrile with a normal CRP and white count, I will hold on antibiotics. Urology, Dr. White evaluated the patient today reports he has chronic epididymitis and he needs a follow-up in the office in the next few weeks for further evaluation and treatment options. Time Spent With Patient Time with patient: 2
[2020-01-23] MEDS: INSULIN ASPART (*BKC) 100 UNITS/ML SUB-Q (16:58)
[2020-01-23 17:45] LABS: Glucose Point of Care 209 (65-105)
[2020-01-23] MEDS: polyethylene glycoL 3350 17 GM POWD.PACK PO (18:12)
[2020-01-23 22:47] LABS: Glucose Point of Care 161 (65-105)
[2020-01-24] VITALS: PULSE 69
[2020-01-24 04:00] VITALS: PULSE 69
[2020-01-24 06:00] VITALS: BP 110/62; PULSE 75; RESP 16; TEMP 36.6; O2SAT 94
--- NOTE | 2020-01-24 07:21 | WPDGIPROGNO ---
Progress Note: A&P Additional Plan I recommended continue to follow clinically. I would continue his proton pump inhibitor therapy. If patient should have recurrent symptoms please contact us. I also recommended proceed with an upper GI series at that time. If patient is discharged that were suggestive follow-up Dr. Ortiz in the office. Time Spent With Patient Time with patient: less than 15 minutes Subjective Date/time seen: 01/24/20 07:21 the patient re-evaluated this morning. He says he slept well during the night. He denies any further GI symptoms such as abdominal pain nausea vomiting. He is tolerating his diet without symptomatology. Exam Const: Orientation/consciousness: patient oriented x3 Resp: Auscultation: clear to auscultation bilaterally Cardio: Rate: regular rate Rhythm: regular rhythm Heart sounds: no murmurs GI: GI Palp: Yes Soft to palpation, No Tenderness to palpation present (GI), Yes No hepatosplenomegaly present and No Palpable mass present Auscultation: normal bowel sounds Neuro: General: patient oriented x3 and no focal motor deficits Extrem: General: no pedal edema Objective Data Vital Signs Vital Signs: Vital Signs - 24 hr 01/23/20 08:00 01/23/20 12:00 01/23/20 14:38 Temperature 36.7 C Pulse Rate 57 L 83 81 Respiratory Rate 18 Blood Pressure 158/70 H Pulse Oximetry 94 01/23/20 16:00 01/23/20 20:00 01/23/20 22:00 Temperature 37.1 C Pulse Rate 65 76 75 Respiratory Rate 18 Blood Pressure 128/77 Pulse Oximetry 97 01/24/20 00:00 01/24/20 04:00 01/24/20 06:00 Temperature 36.6 C Pulse Rate 69 69 75 Respiratory Rate 16 Blood Pressure 110/62 Pulse Oximetry 94 Intake/Output Intake/Output: Intake & Output 01/21/20 01/22/20 01/23/20 01/24/20 22:59 22:59 23:59 23:59 Intake Total 460 Output Total 1100 Balance -640 Meds/Results Medications: Active Medications Generic Name Dose Route Start Last Admin Trade Name Freq PRN Reason Stop Dose Admin Hydrocodone Bitart/Acetaminophen 1 tab 01/21/20 18:39 01/23/20 22:38 [place]rosse 7.5-325 Mg PO 1 tab Q6H PRN Administration Pain (Scale Score 7-10) Al Hydrox/Mg Hydrox/Simethicone 30 ml 01/22/20 16:22 01/22/20 20:47 Mylanta PO 30 ml Q6H PRN Administration Indigestion Aspirin 81 mg 01/22/20 09:00 01/23/20 09:02 Aspirin Ec PO 81 mg DAILY KAYLEEN Administration Atorvastatin Calcium 40 mg 01/22/20 09:00 01/23/20 09:02 Lipitor PO 40 mg QAM KAYLEEN Administration Calcium Polycarbophil 625 mg 01/21/20 18:45 01/23/20 16:55 Fiber Con PO 625 mg BID KAYLEEN Administration Clopidogrel Bisulfate 75 mg 01/22/20 09:00 01/23/20 09:03 Plavix PO 75 mg QAM KAYLEEN Administration Dextrose 12.5 gm 01/21/20 15:46 Dextrose 50% Syringe IV PUSH PRN PRN Hypoglycemia Protocol Diphenhydramine HCl 25 mg 01/21/20 18:39 01/23/20 22:38 Benadryl Cap PO 25 mg Q6H PRN Administration Itching Docusate Sodium 100 mg 01/23/20 17:04 Colace Capsule PO BID PRN Constipation Duloxetine HCl 30 mg 01/22/20 11:10 01/23/20 09:03 Cymbalta PO 30 mg DAILY KAYLEEN Administration Fish Oil 1 gm 01/22/20 09:00 01/23/20 09:02 Lovaza PO 1 gm DAILY KAYLEEN Administration Folic Acid 0.8 mg 01/22/20 09:00 01/23/20 09:03 Folic Acid PO 02/21/20 09:01 0.8 mg DAILY KAYLEEN Administration Gabapentin 900 mg 01/21/20 21:00 01/23/20 20:31 Neurontin PO 900 mg Q12HR KAYLEEN Administration Glucagon 1 mg 01/21/20 15:46 Glucagon For Inj IM PRN PRN Hypoglycemia Protocol Glucose 15 gm 01/21/20 15:46 Glutose 15 PO PRN PRN Hypoglycemia Protocol Dextrose 1,000 mls @ 100 mls/hr 01/21/20 15:46 Dextrose 5% 1,000 Ml IVPB PRN PRN Hypoglycemia Protocol Insulin Aspart 3 - 6 units 01/21/20 17:00 01/23/20 16:58 Novolog SUB-Q 3 units TIDWM [facility] Adm
[2020-01-24] MEDS: ATORVASTATIN 40 MG TABLET PO (07:54)
[2020-01-24] MEDS: calcium polycarbophiL 625 MG TABLET PO (07:54)
[2020-01-24] MEDS: CLOPIDOGREL BISULFATE 75 MG TABLET PO (07:54)
[2020-01-24] MEDS: CHOLECALCIFEROL 1,000 UNIT TABLET 2000 UNITS PO (07:54)
[2020-01-24] MEDS: ASPIRIN 81 MG ENTERIC TABLET PO (07:54)
[2020-01-24] MEDS: DULOXETINE HCL 30 MG CAPSULE.DR PO (07:54)
[2020-01-24] MEDS: NEOMYCIN/POLYMYXIN/BACITRACIN OINTMENT 15 GM TUBE 1 APPLIC TOPICAL (07:55)
[2020-01-24] MEDS: lisinopriL 10 MG TABLET PO (07:55)
[2020-01-24] MEDS: MULTIVITAMINS THERAPEUTIC TAB (*BKC) 1 TABLET PO (07:55)
[2020-01-24] MEDS: FOLIC ACID 0.4 MG TABLET 0.8 MG PO (07:55)
[2020-01-24] MEDS: MIDODRINE HCL 2.5 MG TABLET 5 MG PO (07:55)
[2020-01-24] MEDS: GABAPENTIN 300 MG CAPSULE 900 MG PO (07:55)
[2020-01-24] MEDS: PANTOPRAZOLE SODIUM IV 40 MG VIAL IV PUSH (07:56)
[2020-01-24] MEDS: OMEGA 3 POLYUNSAT FATTY ACIDS 1 GM CAP PO (07:56)
[2020-01-24 07:59] LABS: Glucose Point of Care 129 (65-105)
[2020-01-24 08:00] VITALS: PULSE 70
[2020-01-24] MEDS: INSULIN HUMAN ISOPHAN/REGULAR 70/30 (*BKC) 100 UNITS/ML 40 UNITS SUB-Q (08:07)
--- NOTE | 2020-01-24 09:52 | PM.PNCARD ---
Progress Note: A&P Assessment and Plan (1) Chest pain: Qualifiers: Chest pain type: other chest pain Qualified Code(s): R07.89 - Other chest pain Code(s): R07.9 - Chest pain, unspecified Status: Acute Assessment and Plan: Troponin negative x3. New ischemic changes on EKG. Continue current medical therapy. Unlikely to tolerate antianginal therapy given orthostatic hypotension and need for midodrine chronically. No further chest discomfort Follow up with established still photographer within the next 1 week. (2) Coronary artery disease: Qualifiers: Coronary Disease-Associated Artery/Lesion type: [place] artery [place] vs. transplanted heart: [place] heart Associated angina: without angina Qualified Code(s): I25.10 - Atherosclerotic heart disease of [place] coronary artery without angina pectoris Code(s): I25.10 - Atherosclerotic heart disease of [place] coronary artery without angina pectoris Status: Acute Assessment and Plan: Recent stent November 2019. He is unable to discontinue dual antiplatelet therapy so soon after stent on an elective basis. Records have been requested again. Cont ASA, Clopidogrel, Atorvastatin. Follow-up with Dr Young at [facility] as above (3) RBBB: Code(s): I45.10 - Unspecified right bundle-branch block Status: Acute Assessment and Plan: Chronic. Evidence of underlying conduction system disease. Not currently on beta-azucena/ AV mandi blocking therapy (4) Wandering atrial pacemaker: Code(s): I49.8 - Other specified cardiac arrhythmias Status: Acute Assessment and Plan: EKG and telemetry are indicative of underlying conduction system disease. No indication for pacemaker presently. Remote history of near syncope, lightheadedness may be in part contributed to intermittent bradycardia. Denied any symptoms currently and essentially is asymptomatic with intermittent transient bradycardic response on telemetry this hospitalization. He reports h/o resolution of lightheaded episodes with initiation of Midodrine in the past. Follow-up with established still photographer as above (5) Orthostatic hypotension: Code(s): I95.1 - Orthostatic hypotension Status: Acute Assessment and Plan: Avoid dehydration. Management of midodrine and lisinopril concurrently per established still photographer and primary care provider. n Additional Plan OK to discharge from cardiac standpoint as he is asymptomatic. Close follow-up with still photographer recommended. His will call and make an appointment. Records from [facility] will be reviewed when available. Do not anticipate delaying discharge for record review Plan discussed Dr. Gutierrez [id number] 01/24/2020 Subjective Date/time seen: 01/24/20 09:52 Interval history: Follow-up for chest discomfort, history of coronary disease with recent stenting in November 2019, wandering atrial pacemaker. Date of service: 01/24/2020 Subjective: Laying completely flat in bed sleeping. Awakened with no complaints of chest discomfort, shortness of breath, lightheadedness or palpitations. Epigastric discomfort almost completely resolved. Review of Systems Constitutional: Constitutional: Reports difficulty sleeping, Denies excessive sweating, Reports fatigue and Denies headache(s) Eyes: Eyes: Denies blurry vision ENT: Denies dysphagia, Denies headache(s) and Denies neck pain Cardiovascular: Cardiovascular: Denies chest pain, Denies diaphoresis, Denies leg edema, Denies lightheadedness, Denies palpitations and Denies dyspnea Respiratory: Respiratory: Denies hemoptysis, Denies dyspnea and Denies wheezing Gastrointestinal: Gastrointestinal: Reports abdominal pain (Almost completely resolved.), Denies melena, Denies hematochezia, Denies dysphagi
[2020-01-24] MEDS: polyethylene glycoL 3350 17 GM POWD.PACK PO (11:46)
--- NOTE | 2020-01-24 11:55 | PM.DS ---
DS: Diagnosis Admitting Diagnosis Admitting Diagnosis: Epigastric pain Discharge Diagnosis (1) Chest pain: Qualifiers: Chest pain type: other chest pain Qualified Code(s): R07.89 - Other chest pain Code(s): R07.9 - Chest pain, unspecified Status: Acute Assessment and Plan: 01/22/2020: He had episode of some chest tightness after I had finished talking with him and he was walking back from the bathroom. 01/23/2020: He reports another episode of chest tightness while walking back from the bathroom today as well. 01/24/2020: He reports feeling well today without any more episode of chest tightness. Troponins were drawn x2 which were both negative. EKGs were ordered showing sinus bradycardia with first-degree AV block, right bundle branch block otherwise normal. Tele showed normal sinus rhythm, rate 89 bpm, 1st degree AV block, frequent PACs I talked with Dr. Gautam Cardiology who evaluated the patient and believes the patient could be having a wandering atrial pacemaker but believes this is not causing his symptoms. [facility] records were obtained from the patient's cath and stent placement in November 2019. Cardiology has reviewed these records and would like no further workup at this time. The patient is to follow-up with his truck crane operator at [facility] within 1 week of discharge for further evaluation. The patient understands and agrees the plan at this time. All questions answered. (2) Epigastric pain: Code(s): R10.13 - Epigastric pain Status: Acute Assessment and Plan: Concern for gastritis or even peptic ulcer given history. Will start Protonix b.i.d. The patient states the Protonix we have been giving him twice a day have been helping more than his omeprazole. I will prescribe Protonix for him upon discharge. He is feeling well today and tolerating a regular diet. Dr. Singh GI specialist evaluated the patient and does not feel an EGD is warranted at this time since his symptoms have improved. He also states that the patient is on Plavix and would need to hold this for 7 days prior to EGD. This is something he will need to follow-up as an outpatient with Dr. Mclean for further evaluation in the future. (3) Anorexia: Code(s): R63.0 - Anorexia Status: Acute Assessment and Plan: Patient reports an 11 pound weight loss in the past several weeks due to such. Recently started back on Cymbalta, which could cause GI upset but patient has taken this before and denies having previous, similar symptoms while on that drug. Plan as detailed above. (4) Insulin dependent type 2 diabetes mellitus: Code(s): E11.9 - Type 2 diabetes mellitus without complications; Z79.4 - correction (current) use of insulin Status: Acute Assessment and Plan: Continue basal insulin. Glucose this morning was 129. Will have him continue checking his sugars 5 times a day and taking his home medications. (5) Depression with anxiety: Code(s): F41.8 - Other specified anxiety disorders Status: Acute Assessment and Plan: Patient recently started back on Cymbalta, which he has taken before. Reports a good support system. He denies suicidal thoughts. (6) Hypertension: Code(s): I10 - Essential (primary) hypertension Status: Acute Assessment and Plan: Blood pressures were reviewed and they are stable and well controlled. Continue antihypertensives and monitor daily. (7) Left testicular pain: Code(s): N50.812 - Left testicular pain Status: Acute Assessment and Plan: Upon arrival he was on Levaquin for
--- NOTE | 2020-01-24 11:55 | P.DS_ITS ---
DS: Diagnosis Admitting Diagnosis Admitting Diagnosis: Epigastric pain Discharge Diagnosis (1) Chest pain: Qualifiers: Chest pain type: other chest pain Qualified Code(s): R07.89 - Other chest pain Code(s): R07.9 - Chest pain, unspecified Status: Acute Assessment and Plan: * 01/22/2020: He had episode of some chest tightness after I had finished talking with him and he was walking back from the bathroom. * 01/23/2020: He reports another episode of chest tightness while walking back from the bathroom today as well. * 01/24/2020: He reports feeling well today without any more episode of chest tightness. * Troponins were drawn x2 which were both negative. * EKGs were ordered showing sinus bradycardia with first-degree AV block, right bundle branch block otherwise normal. * Tele showed normal sinus rhythm, rate 89 bpm, 1st degree AV block, frequent PACs * I talked with Dr. Gautam Cardiology who evaluated the patient and believes the patient could be having a wandering atrial pacemaker but believes this is not causing his symptoms. * [facility] records were obtained from the patient's cath and stent placement in November 2019. Cardiology has reviewed these records and would like no further workup at this time. * The patient is to follow-up with his spray ii painter at [facility] within 1 week of discharge for further evaluation. * The patient understands and agrees the plan at this time. All questions answered. (2) Epigastric pain: Code(s): R10.13 - Epigastric pain Status: Acute Assessment and Plan: * Concern for gastritis or even peptic ulcer given history. * Will start Protonix b.i.d. * The patient states the Protonix we have been giving him twice a day have been helping more than his omeprazole. * I will prescribe Protonix for him upon discharge. * He is feeling well today and tolerating a regular diet. * Dr. Singh GI specialist evaluated the patient and does not feel an EGD is warranted at this time since his symptoms have improved. He also states that the patient is on Plavix and would need to hold this for 7 days prior to EGD. * This is something he will need to follow-up as an outpatient with Dr. Mclean for further evaluation in the future. (3) Anorexia: Code(s): R63.0 - Anorexia Status: Acute Assessment and Plan: * Patient reports an 11 pound weight loss in the past several weeks due to such. * Recently started back on Cymbalta, which could cause GI upset but patient has taken this before and denies having previous, similar symptoms while on that drug. * Plan as detailed above. (4) Insulin dependent type 2 diabetes mellitus: Code(s): E11.9 - Type 2 diabetes mellitus without complications; Z79.4 - residential (current) use of insulin Status: Acute Assessment and Plan: * Continue basal insulin. * Glucose this morning was 129. * Will have him continue checking his sugars 5 times a day and taking his home medications. (5) Depression with anxiety: Code(s): F41.8 - Other specified anxiety disorders Status: Acute Assessment and Plan: * Patient recently started back on Cymbalta, which he has taken before. * Reports a good support system. * He denies suicidal thoughts. (6) Hypertension:
[2020-01-24 12:17] LABS: Glucose Point of Care 158 (65-105)
== END 2020-01-24 13:18 | disposition home or self-care (01) | DRG 313 ==
PROVIDERS: Physician Assistant; Admitting Provider Internal Medicine; PCP Internal Medicine; Visit Provider Internal Medicine
DX: R07.9 Chest pain, unspecified (principal); R10.13 Epigastric pain; I25.10 Atherosclerotic heart disease of native coronary artery without angina pectoris; Z95.5 Presence of coronary angioplasty implant and graft; I10 Essential (primary) hypertension; M06.9 Rheumatoid arthritis, unspecified; Z92.3 Personal history of irradiation; Z85.46 Personal history of malignant neoplasm of prostate; Z79.4 Long term (current) use of insulin; G47.33 Obstructive sleep apnea (adult) (pediatric); M54.9 Dorsalgia, unspecified; G89.29 Other chronic pain; N40.0 Benign prostatic hyperplasia without lower urinary tract symptoms; Z79.891 Long term (current) use of opiate analgesic; D64.9 Anemia, unspecified; F41.8 Other specified anxiety disorders; F17.290 Nicotine dependence, other tobacco product, uncomplicated; N45.1 Epididymitis; M19.90 Unspecified osteoarthritis, unspecified site; Z86.010 Personal history of colon polyps; Z98.49 Cataract extraction status, unspecified eye; I95.1 Orthostatic hypotension; I45.10 Unspecified right bundle-branch block; E11.42 Type 2 diabetes mellitus with diabetic polyneuropathy; R63.0 Anorexia; I49.8 Other specified cardiac arrhythmias; R00.1 Bradycardia, unspecified
CPT/HCPCS: 36415; 80048; 80053; 81001; 84484; 85025; 85027; 86140; 87040; 93005; 96361; 96374; 96376; A9270; C9113; G0378; J1815; J7030

== ENCOUNTER 2020-01-31 10:56 | Outpatient (CLI) | payer MEDICARE, SELFPAY ==
[2020-01-31 13:05] LABS: Basophils Percent Auto 0.7 % (0.2-1.2); Eosinophils Absolute Auto 0.2 K/mm3 (0-0.3); Eosinophils Percent Auto 3.5 % (0-4.4); Hematocrit 40.1 % (42.0-52.0); Hemoglobin 13.1 g/dL (14.0-18.0); Immature Granulocyte Absolute 0.02 K/mm3 (0.00-0.031); Immature Granulocyte Percent A 0.4 % (0-0.5); Lymphocytes Absolute Auto 0.43 K/mm3 (0.9-3.2); Lymphocytes Percent Auto 7.6 % (18.3-44.2); Mean Corpuscular HGB Conc 32.7 g/dl (32-36); Mean Corpuscular Hemoglobin 29.5 pg (26-34); Mean Corpuscular Volume 90.3 fl (80-100); Mean Platelet Volume 10.5 fl (7.4-10.4); Monocytes Absolute Auto 0.8 K/mm3 (0.1-0.6); Monocytes Percent Auto 13.9 % (2.6-8.5); Neutrophils Absolute Auto 4.2 K/mm3 (1.3-6.7); Neutrophils Percent Auto 73.9 % (45.5-73.1); Platelet Count Result 265 k/mm3 (150-375); Red Blood Count 4.44 M/mm3 (4.6-6.20); Red Cell Distribution Width 15.4 % (11.5-14.5); White Blood Count 5.7 K/mm3 (4.5-10.0)
[2020-01-31 13:13] LABS: Alanine Aminotransferase 24 U/L (4-50); Alkaline Phosphatase 90 U/L (38-126); Aspartate Amino Transferase 30 U/L (17-59); Bilirubin,Total 0.6 mg/dL (0.2-1.3); Blood Urea Nitrogen 23 mg/dL (9-20); Calcium 9.2 mg/dL (8.4-10.2); Carbon Dioxide 29 mmol/L (22-30); Chloride 101 mmol/L (98-107); Cholesterol 127 mg/dL (0-200); Estimated Glomerular Filt Rate > 60; Glucose 127 mg/dL (75-110); HDL Direct 46 mg/dL; Potassium 4.8 mmol/L (3.4-5.0); Sodium 135 mmol/L (137-145); Triglycerides 215 mg/dL (<150)
[2020-01-31 13:25] LABS: LDL Cholesterol Direct 49 mg/dL
[2020-01-31 13:31] LABS: Vitamin D 25 Hydroxy 34.6 ng/mL
[2020-01-31 13:36] LABS: Add Urine Microscopic? YES; Appearance Urine Clear (Clear); Bilirubin Urine Negative (Negative); Blood Urine Negative (Negative); Color Urine Yellow (Yellow); Glucose Urine UA 3+ mg/dL (Negative); Ketones Urine Negative (Negative); Leukocyte Esterase Ur Negative LEU/UL (NEGATIVE); Nitrate Urine Negative (Negative); Protein Urine Negative (Negative); RBC Urine 0-2 /hpf (0-2); Specific Grav Ur 1.017 (1.001-1.035); Squamous Epithelial Cell Urine Rare /hpf (Few); Urobilinogen Urine Negative mg/dL (<2.0); WBC Urine 0-3 /hpf (0-3)
[2020-01-31 13:44] LABS: Thyroid Stimulating Hormone 0.753 uIU/mL (0.465-4.680)
[2020-01-31 14:24] LABS: Hemoglobin A1C 7.5 % (<5.7)
== END 2020-01-31 10:57 | disposition home or self-care (01) ==
LOC: ANHWCLAB 11:01
PROVIDERS: PCP Internal Medicine; Referring Provider Internal Medicine; Visit Provider Internal Medicine
DX: E78.5 Hyperlipidemia, unspecified (principal); E11.9 Type 2 diabetes mellitus without complications; Z79.4 Long term (current) use of insulin; I10 Essential (primary) hypertension; E55.9 Vitamin D deficiency, unspecified
CPT/HCPCS: 36415; 80053; 80061; 81001; 82306; 83036; 84443; 85025

== ENCOUNTER 2020-03-20 12:23 | Outpatient (CLI) | payer MEDICARE, SELFPAY ==
[2020-03-20 13:07] LABS: Blood Urea Nitrogen 23 mg/dL (9-20); Calcium 9.4 mg/dL (8.4-10.2); Carbon Dioxide 27 mmol/L (22-30); Chloride 100 mmol/L (98-107); Cholesterol 128 mg/dL (0-200); Estimated Glomerular Filt Rate > 60; Glucose 170 mg/dL (75-110); HDL Direct 40 mg/dL; Potassium 4.6 mmol/L (3.4-5.0); Sodium 135 mmol/L (137-145); Triglycerides 268 mg/dL (<150)
[2020-03-20 13:17] LABS: LDL Cholesterol Direct 49 mg/dL
[2020-03-20 15:10] LABS: Basophils Percent Auto 0.6 % (0.2-1.2); Eosinophils Absolute Auto 0.2 K/mm3 (0-0.3); Eosinophils Percent Auto 2.3 % (0-4.4); Hematocrit 39.6 % (42.0-52.0); Hemoglobin 13.4 g/dL (14.0-18.0); Immature Granulocyte Absolute 0.03 K/mm3 (0.00-0.031); Immature Granulocyte Percent A 0.5 % (0-0.5); Lymphocytes Absolute Auto 0.48 K/mm3 (0.9-3.2); Lymphocytes Percent Auto 7.4 % (18.3-44.2); Mean Corpuscular HGB Conc 33.8 g/dl (32-36); Mean Corpuscular Hemoglobin 29.5 pg (26-34); Mean Corpuscular Volume 87.2 fl (80-100); Monocytes Absolute Auto 0.8 K/mm3 (0.1-0.6); Neutrophils Percent Auto 77.2 % (45.5-73.1); Platelet Count Result 284 k/mm3 (150-375); Red Blood Count 4.54 M/mm3 (4.6-6.20); Red Cell Distribution Width 16.1 % (11.5-14.5); White Blood Count 6.5 K/mm3 (4.5-10.0)
[2020-03-20 15:22] LABS: CRP 0.8 mg/dL (<1.0)
[2020-03-20 15:37] LABS: Erythrocyte Sedimentation Rate 24 mm/hr (0-20)
== END 2020-03-20 12:24 | disposition home or self-care (01) ==
PROVIDERS: PCP Internal Medicine; Visit Provider Internal Medicine
DX: E11.9 Type 2 diabetes mellitus without complications (principal); M06.9 Rheumatoid arthritis, unspecified; Z79.899 Other long term (current) drug therapy; Z79.4 Long term (current) use of insulin; E78.2 Mixed hyperlipidemia
CPT/HCPCS: 36415; 80048; 80061; 83036; 84443; 85025; 85652; 86140

== ENCOUNTER 2020-05-11 08:59 | Outpatient (CLI) | payer MEDICARE, SELFPAY ==
[2020-05-11 09:47] LABS: Blood Urea Nitrogen 17 mg/dL (9-20); Calcium 8.8 mg/dL (8.4-10.2); Carbon Dioxide 28 mmol/L (22-30); Chloride 103 mmol/L (98-107); Cholesterol 124 mg/dL (0-200); Estimated Glomerular Filt Rate > 60; Glucose 114 mg/dL (75-110); HDL Direct 44 mg/dL; Potassium 4.3 mmol/L (3.4-5.0); Sodium 136 mmol/L (137-145); Triglycerides 197 mg/dL (<150)
[2020-05-11 09:58] LABS: LDL Cholesterol Direct 47 mg/dL
[2020-05-11 10:08] LABS: Creatinine Urine 276.2 mg/dL
[2020-05-11 10:09] LABS: Hemoglobin A1C 7.9 % (<5.7)
[2020-05-11 10:13] LABS: MALB Creatinine Ratio 6.7 mg/g (0-30); Microalbumin Urine Random 18.5 mg/L (0-16.7)
== END 2020-05-11 09:00 | disposition home or self-care (01) ==
PROVIDERS: PCP Internal Medicine; Visit Provider Internal Medicine
DX: E78.2 Mixed hyperlipidemia (principal); E11.9 Type 2 diabetes mellitus without complications; Z79.4 Long term (current) use of insulin; I10 Essential (primary) hypertension; Z79.899 Other long term (current) drug therapy
CPT/HCPCS: 36415; 80048; 80061; 82043; 83036; 84443

== ENCOUNTER 2020-08-31 09:45 | Outpatient (CLI) | payer MEDICARE, SELFPAY | END 2020-08-31 09:46 | disposition home or self-care (01) | LOC: ANHAUDIO 09:47 | PROVIDERS: PCP Internal Medicine; Visit Provider Otolaryngology | DX: H91.90 Unspecified hearing loss, unspecified ear (principal); H93.13 Tinnitus, bilateral | CPT/HCPCS: 92557; 92567 ==

== ENCOUNTER 2020-09-08 16:30 | Outpatient (CLI) | payer MEDICARE, SELFPAY ==
--- NOTE | ~2020-09-08 | MR_ITS ---
EXAMINATION: MR lumbar spine wo/w con EXAM DATE: 09/08/2020 17:53 INDICATION: M54.5 - Low back pain TECHNIQUE: Multi-sequential, multiplanar MR images of the lumbar spine were obtained without contrast . Sagittal T1, T2, T2 fat saturation images. Axial T2 weighted images. Axial T1 weighted sequence. Patient was then injected with 20 mL Multihance intravenous contrast and reimaged. Postcontrast axi al and sagittal T1-weighted fat saturation sequences were obtained. Comparison is made to prior exami nation from 04/16/2018. FINDINGS: There are right-sided pedicular screws, and interbody device at L4-5. Mild to moderate loss of the L2-3 disc height, mild disc disease at the other lumbar levels. There is 4 mm retrolisthesis L5 on S1. The conus medullaris terminates at the L1/2 level and has normal signal intensity and morph ology. There are no suspicious marrow signal abnormalities. Paraspinal soft tissue is unremarkable. There are no areas of abnormal enhancement on the post contrast images. Level by level evaluation: T12-L1: Disc does not extend beyond the endplate margin. Facet arthropathy: Mild. Neural foraminal stenosis: No stenosis. Central canal stenosis: No stenosis. L1-L2: Disc does not extend beyond the endplate margin. Facet arthropathy: Mild. Neural foraminal stenosis: No stenosis. Central canal stenosis: No stenosis. L2-L3: There is a mild diffuse disc bulge. Facet arthropathy: Mild. Neural foraminal stenosis: Mild to moderate bilateral. Central canal stenosis: Mild. L3-L4: There is a mild to moderate diffuse disc bulge. Facet arthropathy: Mild to moderate. Neural foraminal stenosis: Moderate lateral. Central canal stenosis: Mild. L4-L5: There is a moderate diffuse disc bulge. Facet arthropathy: Moderate. Neural foraminal stenosis: Moderate left, mild right. Central canal stenosis: Mild. L5-S1: There is a mild to moderate diffuse disc bulge. Facet arthropathy: Mild to moderate. Neural foraminal stenosis: Moderate bilateral. Central canal stenosis: Mild to moderate. Compared to 2018, only minimal progression compared to 2018 exam. IMPRESSION: 1. Moderate lumbar spondylosis. Reviewed, dictated and finalized at location A.
[2020-09-08 17:16] LABS: Estimated Glomerular Filt Rate > 60
== END 2020-09-08 16:31 | disposition home or self-care (01) ==
LOC: ANHIMG 16:45
PROVIDERS: PCP Internal Medicine; Visit Provider Internal Medicine
DX: M47.896 Other spondylosis, lumbar region (principal)
CPT/HCPCS: 72158; A9577

== ENCOUNTER 2020-09-11 09:48 | Outpatient (CLI) | payer MEDICARE, SELFPAY ==
[2020-09-11 10:28] LABS: Hemoglobin A1C 7.7 % (<5.7)
[2020-09-11 11:24] LABS: Anion Gap 8 mmol/L (8-16); Blood Urea Nitrogen 16 mg/dL (9-20); Calcium 9.4 mg/dL (8.4-10.2); Carbon Dioxide 28 mmol/L (22-30); Chloride 102 mmol/L (98-107); Cholesterol 143 mg/dL (0-200); Estimated Glomerular Filt Rate > 60; Glucose 251 mg/dL (75-110); HDL Direct 45 mg/dL; Potassium 4.7 mmol/L (3.4-5.0); Sodium 138 mmol/L (137-145); Triglycerides 298 mg/dL (<150)
[2020-09-11 11:36] LABS: LDL Cholesterol Direct 54 mg/dL
== END 2020-09-11 09:49 | disposition home or self-care (01) ==
PROVIDERS: PCP Internal Medicine; Visit Provider Internal Medicine
DX: E11.9 Type 2 diabetes mellitus without complications (principal); Z79.4 Long term (current) use of insulin; I10 Essential (primary) hypertension; E78.2 Mixed hyperlipidemia
CPT/HCPCS: 36415; 80048; 80061; 83036

== ENCOUNTER 2020-10-24 09:50 | Outpatient (CLI) | payer MEDICARE, SELFPAY ==
[2020-10-24 10:48] LABS: Add Urine Microscopic? YES; Appearance Urine Clear (Clear); Bilirubin Urine Negative (Negative); Blood Urine Negative (Negative); Color Urine Yellow (Yellow); Glucose Urine UA 3+ mg/dL (Negative); Ketones Urine Negative (Negative); Leukocyte Esterase Ur Negative LEU/UL (NEGATIVE); Nitrate Urine Negative (Negative); Protein Urine Negative (Negative); RBC Urine 0-2 /hpf (0-2); Specific Grav Ur 1.023 (1.001-1.035); Urobilinogen Urine Negative mg/dL (<2.0); WBC Urine 0-3 /hpf (0-3)
[2020-10-24 11:25] LABS: Hemoglobin A1C 7.7 % (<5.7)
[2020-10-24 11:34] LABS: Alanine Aminotransferase 31 U/L (4-50); Alkaline Phosphatase 101 U/L (38-126); Anion Gap 4 mmol/L (8-16); Aspartate Amino Transferase 33 U/L (17-59); Bilirubin,Total 0.6 mg/dL (0.2-1.3); Blood Urea Nitrogen 23 mg/dL (9-20); Calcium 9.5 mg/dL (8.4-10.2); Carbon Dioxide 32 mmol/L (22-30); Chloride 101 mmol/L (98-107); Cholesterol 126 mg/dL (0-200); Estimated Glomerular Filt Rate 59; Glucose 182 mg/dL (75-110); HDL Direct 44 mg/dL; Potassium 4.4 mmol/L (3.4-5.0); Sodium 137 mmol/L (137-145); Triglycerides 178 mg/dL (<150)
[2020-10-24 11:44] LABS: Free T4 Free Thyroxine 0.91 ng/mL (0.78-2.19)
[2020-10-24 11:46] LABS: LDL Cholesterol Direct 47 mg/dL
[2020-10-24 12:05] LABS: Prostate Specific Antigen < 0.1 ng/mL (< OR = 4.0)
[2020-10-27 22:36] LABS: Vitamin D 1,25 (OH)2 Total 15 pg/mL (18-72); Vitamin D2 1,25 (OH)2 <8 pg/mL; Vitamin D3 1,25 (OH)2 15 pg/mL
[2020-10-29 01:41] LABS: Homocysteine 10.5 umol/L (<11.4)
== END 2020-10-24 09:51 | disposition home or self-care (01) ==
PROVIDERS: PCP Internal Medicine; Visit Provider Internal Medicine
DX: C61 Malignant neoplasm of prostate (principal); Z51.81 Encounter for therapeutic drug level monitoring; Z79.899 Other long term (current) drug therapy; I10 Essential (primary) hypertension; E11.9 Type 2 diabetes mellitus without complications; Z79.4 Long term (current) use of insulin; E55.9 Vitamin D deficiency, unspecified; R79.9 Abnormal finding of blood chemistry, unspecified; E78.2 Mixed hyperlipidemia
CPT/HCPCS: 36415; 80053; 80061; 81001; 82652; 83036; 83090; 84153; 84439; 84443

== ENCOUNTER → 2020-11-24 12:40 | Outpatient (CLI) | payer MEDICARE, SELFPAY ==
--- NOTE | ~2020-11-24 | XR_ITS ---
EXAMINATION: XR lumbar spine 2-3V EXAM DATE: 11/24/2020 13:31 INDICATION: Radiculopathy . 2 prior lower back surgeries 2009 and 2010, lower back pain after lifting something 1 week ago. TECHNIQUE: Lumber spine frontal, lateral, lateral L5-S1 projections for interpretation. There is no prior study for comparison. FINDINGS: L4-5 interbody device and right pedicular screws. There may be some lucency surrounding the screws, may indicate some amount of loosening. There is mild lumbar levoscoliosis. Moderate L5-S1 di sc disease, mild to moderate upper lumbar disc disease. Mild to moderate facet arthropathy. No spondy lolysis. There are cholecystectomy clips. IMPRESSION: Mild to moderate lumbar spondylosis. Possible L4-L5 pedicular screw loosening. Reviewed, dictated and finalized at location A. L FORGER'S ASSISTANT IMPRESSION: Mild to moderate lumbar spondylosis. Possible L4-L5 pedicular scre w loosening.
--- NOTE | ~2020-11-24 | XR_ITS ---
XR cervical spine 4-5V DATE: 11/24/2020 13:31 INDICATION: Radiculopathy TECHNIQUE: Standing AP, lateral, swimmer's and open-mouth views COMPARISON: 12/24/2019 cervical spine FINDINGS: Normal alignment of the cervical spine. C1 and C2 are normally aligned and the odontoid pro cess is intact. No fracture or dislocation or locked facet or prevertebral soft tissue swelling. Diffuse osteopenia. There is mild degenerative spurring of the cervical spine. Cervical interspaces are mildly narrowed a t C3-4, C4-5 and C6-7. IMPRESSION: Mild degenerative change Reviewed, dictated and finalized at location B. ICAL OPERATIONS LEADER IMPRESSION: Mild degenerative change
== END ==
PROVIDERS: PCP Internal Medicine; Visit Provider Pain Medicine Interventional Pain Medicine
DX: M54.12 Radiculopathy, cervical region (principal); M54.17 Radiculopathy, lumbosacral region; M47.816 Spondylosis without myelopathy or radiculopathy, lumbar region
CPT/HCPCS: 72050; 72100

== ENCOUNTER 2021-02-01 15:22 | Outpatient (CLI) | payer MEDICARE, SELFPAY | END 2021-02-01 15:23 | disposition home or self-care (01) | PROVIDERS: PCP Internal Medicine; Visit Provider Internal Medicine | DX: R19.7 Diarrhea, unspecified (principal) | CPT/HCPCS: 87045; 87046; 87427 ==

== ENCOUNTER 2021-02-16 11:53 | Outpatient (CLI) | payer MEDICARE, SELFPAY ==
--- NOTE | ~2021-02-16 | XR_ITS ---
XR hip RT 2V w AP pelvis 02/16/2021 12:20 Indication: Right hip pain after injury Procedure: AP pelvis and 2 views right hip Comparison: 03/25/2018 Findings: No fracture, subluxation or dislocation. Pelvic rings are intact. There are spinal fusion c hanges at L3-L5. No significant soft tissue abnormality. No radiopaque foreign bodies. Sacral foramen are symmetric. Impression: 1: No acute bone or joint abnormality. Reviewed, dictated and finalized at location B. Impression: 1: No acute bone or joint abnormality.
[2021-02-16 13:19] LABS: Add Urine Microscopic? YES; Appearance Urine Clear (Clear); Bilirubin Urine Negative (Negative); Blood Urine Negative (Negative); Color Urine Straw (Yellow); Glucose Urine UA 3+ mg/dL (Negative); Ketones Urine Negative (Negative); Leukocyte Esterase Ur Negative LEU/UL (NEGATIVE); Nitrate Urine Negative (Negative); Protein Urine Negative (Negative); RBC Urine 0-2 /hpf (0-2); Specific Grav Ur 1.024 (1.001-1.035); Urobilinogen Urine Negative mg/dL (<2.0); WBC Urine 0-3 /hpf (0-3)
[2021-02-16 13:29] LABS: Anion Gap 7 mmol/L (8-16); Blood Urea Nitrogen 20 mg/dL (9-20); Carbon Dioxide 28 mmol/L (22-30); Chloride 99 mmol/L (98-107); Cholesterol 144 mg/dL (0-200); Estimated Glomerular Filt Rate > 60; Glucose 280 mg/dL (75-110); HDL Direct 51 mg/dL; Potassium 4.7 mmol/L (3.4-5.0); Sodium 134 mmol/L (137-145); Triglycerides 313 mg/dL (<150)
[2021-02-16 13:34] LABS: Hemoglobin A1C 7.9 % (<5.7)
[2021-02-16 13:39] LABS: LDL Cholesterol Direct 52 mg/dL
[2021-02-16 14:02] LABS: Free T4 Free Thyroxine 0.82 ng/mL (0.78-2.19)
[2021-02-21 11:39] LABS: Vitamin D 1,25 (OH)2 Total 29 pg/mL (18-72); Vitamin D2 1,25 (OH)2 <8 pg/mL; Vitamin D3 1,25 (OH)2 29 pg/mL
== END 2021-02-16 11:54 | disposition home or self-care (01) ==
LOC: ANHIMG 12:05
PROVIDERS: PCP Internal Medicine; Visit Provider Internal Medicine
DX: T14.90XA Injury, unspecified, initial encounter (principal); E11.9 Type 2 diabetes mellitus without complications; Z79.4 Long term (current) use of insulin; I10 Essential (primary) hypertension; Z79.899 Other long term (current) drug therapy; E78.2 Mixed hyperlipidemia; E55.9 Vitamin D deficiency, unspecified; M25.551 Pain in right hip
CPT/HCPCS: 36415; 73502; 80048; 80061; 81001; 82652; 83036; 84439; 84443

== ENCOUNTER 2021-02-19 12:01 | Outpatient (CLI) | payer MEDICARE, SELFPAY ==
--- NOTE | ~2021-02-19 | US_ITS ---
EXAMINATION: US soft tissue lower back DATE: 02/19/2021 12:24 INDICATION: Low back lump. Recent surgery. TECHNIQUE: Multiple grayscale and Doppler ultrasound images of the lower back were obtained. COMPARISON: Lumbar spine MRI 09/08/2020 FINDINGS: Deep to the incision overlying the lumbar spine, there is a 3.3 x 2.6 x 6.0 cm mixed solid and cystic mass. IMPRESSION: 1. Postoperative collection overlying the lumbar spine, consistent with hematoma. Infection cannot be excluded. Reviewed, dictated and finalized at location A. IMPRESSION: 1. Postoperative collection overlying the lumbar spine, consistent with hematom a. Infection cannot be excluded.
== END 2021-02-19 12:02 | disposition home or self-care (01) ==
PROVIDERS: PCP Internal Medicine; Visit Provider Internal Medicine
DX: M79.89 Other specified soft tissue disorders (principal)
CPT/HCPCS: 76705

== ENCOUNTER 2021-03-20 10:50 | Outpatient (CLI) | payer MEDICARE, SELFPAY ==
[2021-03-20 11:36] LABS: Add Urine Microscopic? NO; Appearance Urine Clear (Clear); Bilirubin Urine Negative (Negative); Blood Urine Negative (Negative); Color Urine Yellow (Yellow); Glucose Urine UA Negative (Negative); Ketones Urine Negative (Negative); Leukocyte Esterase Ur Negative LEU/UL (NEGATIVE); Nitrate Urine Negative (Negative); Protein Urine Negative (Negative); Specific Grav Ur 1.015 (1.001-1.035); Urobilinogen Urine Negative mg/dL (<2.0)
[2021-03-20 11:43] LABS: Anion Gap 6 mmol/L (8-16); Blood Urea Nitrogen 17 mg/dL (9-20); Calcium 8.8 mg/dL (8.4-10.2); Carbon Dioxide 29 mmol/L (22-30); Chloride 103 mmol/L (98-107); Cholesterol 151 mg/dL (0-200); Estimated Glomerular Filt Rate > 60; Glucose 228 mg/dL (75-110); HDL Direct 54 mg/dL; Potassium 4.3 mmol/L (3.4-5.0); Sodium 138 mmol/L (137-145); Triglycerides 231 mg/dL (<150)
[2021-03-20 11:47] LABS: Hemoglobin A1C 8.3 % (<5.7)
[2021-03-20 11:53] LABS: LDL Cholesterol Direct 60 mg/dL
[2021-03-23 15:03] LABS: Vitamin D 1,25 (OH)2 Total 50 pg/mL (18-72); Vitamin D2 1,25 (OH)2 <8 pg/mL; Vitamin D3 1,25 (OH)2 50 pg/mL
== END 2021-03-20 10:51 | disposition home or self-care (01) ==
PROVIDERS: PCP Internal Medicine; Visit Provider Internal Medicine
DX: E11.9 Type 2 diabetes mellitus without complications (principal); E78.2 Mixed hyperlipidemia; Z51.81 Encounter for therapeutic drug level monitoring; Z79.899 Other long term (current) drug therapy; Z79.4 Long term (current) use of insulin; E55.9 Vitamin D deficiency, unspecified; I10 Essential (primary) hypertension
CPT/HCPCS: 36415; 80048; 80061; 81003; 82652; 83036; 84439; 84443

== ENCOUNTER → 2021-04-26 10:36 | Outpatient (CLI) | payer MEDICARE, SELFPAY ==
--- NOTE | ~2021-04-26 | MR_ITS ---
EXAMINATION: MR lumbar spine wo con DATE: 04/26/2021 11:31 INDICATION: Dorsalgia, unspecified. TECHNIQUE: Magnetic resonance imaging (MRI) of the lumbar spine was performed without intravenous con trast. Sequences included sagittal T2-weighted FSE, sagittal STIR FSE, sagittal T1-weighted FSE, and axial T2-weighted FSE. COMPARISON: Lumbar spine MRI 09/08/2020 FINDINGS: There is 3 degrees levocurvature of lumbar spine. There is 3 mm anterolisthesis of L4 on L5 . There is mild chronic anterior wedging of T11-L1 vertebral bodies. There are changes of anterior an d posterior fusion procedures from L3 to L5 with interbody devices and pedicle screws. There are parker ges of L4 and L3 laminectomies with 3.6 x 1.6 x 5.1 cm fluid collection in the postlaminectomy surgic al bed, likely a seroma. There is mildly decreased disc height at L5-S1. The distal spinal cord signa l intensity is normal. The conus medullaris is at L1-L2. The following disc levels are specifically d iscussed: L1-L2: The disc does not extend beyond the endplate margin. There is mild bilateral facet joint osteo arthritis. There is no neural foraminal stenosis. There is no central canal stenosis. L2-L3: The disc is bulging. There is mild bilateral facet joint osteoarthritis. There is moderate rig ht and mild left neural foraminal stenosis. There is mild central canal stenosis. L3-L4: There is mild bilateral facet joint hypertrophy. There is mild right and moderate left neural foraminal stenosis. There is no central canal stenosis. L4-L5: There is moderate left facet joint hypertrophy. There is mild right and moderate left neural f oraminal stenosis. There is mild central canal stenosis with posterior decompression. L5-S1: The disc is bulging and has an annular fissure. There is mild bilateral facet joint osteoarthr itis. There is moderate bilateral neural foraminal stenosis. There is mild central canal stenosis. IMPRESSION: 1. Moderate lumbar spondylosis. 2. Anterior and posterior fusion procedures from L3 to L5. 3. Fluid collection in the postlaminectomy bed at L3 and L4, likely a seroma. Reviewed, dictated and finalized at location A.
== END ==
PROVIDERS: Referring Provider Pain Medicine Pain Medicine; Visit Provider Internal Medicine
DX: M47.817 Spondylosis without myelopathy or radiculopathy, lumbosacral region (principal); Z98.1 Arthrodesis status
CPT/HCPCS: 72148

== ENCOUNTER 2021-05-01 14:23 | Outpatient (CLI) | payer MEDICARE, SELFPAY ==
--- NOTE | ~2021-05-01 | US_ITS ---
US venous doppler [facility] DATE: 05/01/2021 15:02 INDICATION: Left leg pain TECHNIQUE: Real-time and color flow imaging and Doppler analysis of the veins of the left lower extre mity COMPARISON: None FINDINGS: Intraluminal thrombus is identified within the gastrocnemius and soleus veins. Flow is demonstrated in the left greater saphenous vein. There is thrombosis of the left common femoral, femoral, popliteal and posterior tibial and peroneal veins, with only minimal flow evident on color flow imaging at the popliteal vein, and absence of com pression of these venous structures.. IMPRESSION: Extensive nearly complete deep venous thrombosis involving left common femoral, femoral, popliteal and posterior tibial and peroneal veins Thrombosis of the gastrocnemius and soleus veins Dr. Fairbanks telephoned the report on 05/01/[address] Pretty. The patient was referred to the emergency room per Dr. Pretty' instructions. Reviewed, dictated and finalized at [facility]. Reviewed, dictated and finalized at location [facility]. IMPRESSION: Extensive nearly complete deep venous thrombosis involving left com mon femoral, femoral, popliteal and posterior tibial and peroneal veins Thrombosis of the gastrocnemius and soleus veins Dr. Fairbanks telephoned the report on 05/01/2021 [address] Pretty. The pa an was referred to the emergency room per Dr. Pretty' instructions.
== END 2021-05-01 14:24 | disposition home or self-care (01) ==
PROVIDERS: PCP Internal Medicine; Visit Provider Internal Medicine
DX: M79.605 Pain in left leg (principal); M79.89 Other specified soft tissue disorders
CPT/HCPCS: 93971

== ENCOUNTER 2021-05-01 15:18 | Inpatient (IN) | payer MEDICARE, SELFPAY ==
[2021-05-01 15:26] VITALS: BP 146/74; PULSE 87; RESP 16; TEMP 36; O2SAT 97
[2021-05-01 15:37] VITALS: BP 146/85; PULSE 87; RESP 20; O2SAT 96
--- NOTE | 2021-05-01 15:47 | PC.NURSE ---
s/p lower back surgery 12/2020, has been using walker, can transfer self from WC to cart with stand-by assist. C/o three weeks LLE pain, no injury, had outpatient US today and confirmed extensive LLE DVT . No resp distress, denies SOB. +Plavix and baby ASA
--- NOTE | 2021-05-01 16:02 | ED.EXTPRO ---
HPI - Extremity Problem General Chief complaint: Extremity Problem,Nontraumatic <Leena Davidson PA-C - Last Filed: 05/01/21 17:46> Stated complaint: left leg swelling <REJI Covarrubias Last Filed: 05/01/21 17:46> Time Seen by Provider: 05/01/21 15:35 <Leena Davidson PA-C - Last Filed: 05/01/21 17:46> Source: patient <REJI Covarrubias Last Filed: 05/01/21 17:46> Mode of arrival: ambulatory <REJI Covarrubias Last Filed: 05/01/21 17:46> Limitations: no limitations <REJI Covarrubias Last Filed: 05/01/21 17:46> History of Present Illness HPI Narrative: This is a 75-year-old male that presents to the emergency department for left leg swelling x3 weeks. Reports history of low back problems and recently had lumbar surgery in December of this year at [facility]. Also reports traveling to [place] a couple of weeks ago. Reports he has pain in the leg as well, but this is chronic from his back pain. Denies fever, or erythema. <Leena Davidson PA-C - Last Filed: 05/01/21 17:46> Related Data Home medications: Home Medications Medication Instructions Recorded Confirmed hydrocodone 7.5 mg-acetaminophen 1 tablet PO Q6H PRN tablet 11/08/19 04/19/21 325 mg tablet Jardiance 10 mg PO DAILY 01/21/20 04/19/21 aspirin [Adult Low Dose Aspirin] 81 mg PO DAILY 01/21/20 04/19/21 cholecalciferol (vitamin D3) 2,000 unit PO DAILY 01/21/20 04/19/21 [Vitamin D3] diphenhydramine HCl [Benadryl] 25 mg PO Q6H PRN 01/21/20 04/19/21 folic acid 0.8 mg PO DAILY 01/21/20 04/19/21 multivitamin 1 tablet PO DAILY 01/21/20 04/19/21 nitroglycerin 0.4 mg SUBLINGUAL ONCE PRN 01/21/20 04/19/21 omega 1-lbm-eyl-fish oil [Fish Oil] 1 cap PO DAILY 01/21/20 04/19/21 lactobacillus combination no.9 4 4,000 mmu cells PO DAILY 03/20/20 04/19/21 billion cell capsule midodrine 5 mg tablet 5 mg PO TID 02/16/21 04/19/21 melatonin 3 mg capsule PO DAILY PRN cap 04/18/21 04/19/21 <Leena Davidson PA-C - Last Filed: 05/01/21 17:46> Allergies/Adverse reactions: Allergies Allergy/AdvReac Type Severity Reaction Status Date / Time fentanyl Allergy Unknown Itching Verified 05/01/21 15:41 tramadol Allergy Unknown Itching Verified 05/01/21 15:41 <Leena Davidson PA-C - Last Filed: 05/01/21 17:46> Review of Systems Review of Systems: Narrative: CONSTITUTIONAL: Denies fever SKIN: Denies rash MUSCULOSKELETAL: Reports back pain, joint pain, and myalgia. NEUROLOGIC: Denies numbness, or weakness. <Leena Davidson PA-C - Last Filed: 05/01/21 17:46> All systems reviewed & are unremarkable except as noted in HPI and below <Leena Davidson PA-C - Last Filed: 05/01/21 17:46> [facility] Past Medical History Medical History: Medical History (Updated 05/01/21 @ 17:11 by Leena Davidson PA-C) Abnormal finding of blood chemistry ASHD (arteriosclerotic heart disease) Back pain with history of spinal surgery Benign prostatic hyperplasia BMI 34.0-34.9,adult BMI 35.0-35.9,adult BMI 36.0-36.9,adult BMI 39.0-39.9,adult C. difficile diarrhea Chronic anemia Chronic, continuous use of opioids Due to chronic lumbago. Colon polyps Coronary artery disease With history of stent to the mid LAD in November 2015. Cardiac catheterization in May 2017 showed a patent LAD stent and 90% ostial stenosis in a 3rd diagonal, which was a small vessel and jailed by previous stent. No other high-grade lesions were noted. Reportedly, he had a stent in November 2019 done at [facility] in [place]. Depression with anxiety Diabetes Dyslipidemia Encounter for Medicare annual wellness exam Encounter for routine adult health examination with abnormal findings Encounter for routine adult health examination without abnormal findings Essential tremor Failed back syndrome of lumbar spine Fall Fatigue GERD (gastroesophageal reflux disease) Hypotension Impaired functional mobility, balance, gait, and endurance Insuli
[2021-05-01 16:35] LABS: Basophils Percent Auto 0.5 % (0.2-1.2); Eosinophils Absolute Auto 0.2 K/mm3 (0-0.3); Eosinophils Percent Auto 2.4 % (0-4.4); Hemoglobin 13.3 g/dL (14.0-18.0); Immature Granulocyte Absolute 0.05 K/mm3 (0.00-0.031); Immature Granulocyte Percent A 0.7 % (0-0.5); Lymphocytes Absolute Auto 0.86 K/mm3 (0.9-3.2); Lymphocytes Percent Auto 11.7 % (18.3-44.2); Mean Corpuscular HGB Conc 32.4 g/dl (32-36); Mean Corpuscular Hemoglobin 27.3 pg (26-34); Mean Platelet Volume 9.6 fl (7.4-10.4); Monocytes Absolute Auto 0.9 K/mm3 (0.1-0.6); Monocytes Percent Auto 11.8 % (2.6-8.5); Neutrophils Absolute Auto 5.4 K/mm3 (1.3-6.7); Neutrophils Percent Auto 72.9 % (45.5-73.1); Platelet Count Result 270 k/mm3 (150-375); Red Blood Count 4.88 M/mm3 (4.6-6.20); Red Cell Distribution Width 15.5 % (11.5-14.5); White Blood Count 7.4 K/mm3 (4.5-10.0)
[2021-05-01 16:45] VITALS: BP 141/73; PULSE 75; RESP 17; O2SAT 97
[2021-05-01 16:45] LABS: Anion Gap 9 mmol/L (8-16); Blood Urea Nitrogen 25 mg/dL (9-20); Calcium 9.7 mg/dL (8.4-10.2); Carbon Dioxide 27 mmol/L (22-30); Chloride 101 mmol/L (98-107); Estimated CRCL calculation 62 ml/min; Estimated Glomerular Filt Rate 59; Glucose 189 mg/dL (75-110); INR 0.9; Potassium 4.3 mmol/L (3.4-5.0); Sodium 137 mmol/L (137-145)
[2021-05-01 16:46] LABS: Partial Thromboplastin Time 28.1 SECONDS (22.3-36.8)
[2021-05-01 17:56] VITALS: BP 146/77; PULSE 71; RESP 12; TEMP 36.5; O2SAT 98
[2021-05-01] MEDS: ACETAMINOPHEN 500 MG TABLET 1000 MG PO (17:56)
[2021-05-01] MEDS: HEPARIN SOD/D5W 100 UNITS/ML 25,000 UNITS/250 ML BAG 15 UNITS IV CONT (17:59)
[2021-05-01 19:15] VITALS: BP 156/87; PULSE 85; RESP 18; TEMP 36.1; O2SAT 97
--- NOTE | 2021-05-01 19:44 | ADMGEN ---
This patient, Kameron Man, was admitted to 3 [facility] Surg Room 319-01. Patient/family oriented to hospital policies and general routines including ID bracelet, bed and alarms, visiting hours, pain management, procedures, bathroom and other care routines, personal items, smoking policy, room service/diet, and visiting hours. Information on how to activate the Rapid Response Team has been discussed. Patient/Family are encouraged to report perceived risks to care and to ask questions if they do not understand what they are told or what they should do.
[2021-05-01 21:23] VITALS: BMI 35.2
[2021-05-01] MEDS: MELATONIN 3 MG TABLET PO (21:44)
[2021-05-01] MEDS: GABAPENTIN 300 MG CAPSULE PO (21:44)
[2021-05-01 22:00] VITALS: BP 138/68; PULSE 68; RESP 18; TEMP 36.4; O2SAT 96
--- NOTE | 2021-05-01 23:24 | PM.IMHP ---
H&P: HPI History of Present Illness Date/Time: 05/02/21 01:00 Chief Complaint: Left leg pain and swelling Narrative: 75-year-old male with past medical history of coronary artery disease, hypertension, hyperlipidemia and diabetes who presented to the ER after outpatient venous Doppler demonstrated left lower extremity extensive DVT. The patient reports that he had approximately 3 weeks of left lower extremity pain and swelling. He initially thought the pain was due to his sciatica associated with his back surgery in December 2020. He reports that he went followed up with his surgeon a couple of months ago to discuss discontinued pain. At that time his surgeon told him that his continued vein is likely due to a hematoma at the base incision. He reported that his leg has been swollen but he does not know exactly how long his leg has been swollen. He has pain from his hip into his groin in down through the back of his leg. He reports that his leg was somewhat swollen but has improved since he was admitted to the medical floor. He denies any chest pain. He does have dyspnea on exertion that is chronic when he tries to climb stairs. He relates this to his history of coronary artery disease. He reports that his difficult to tell exactly how long his leg has been giving him trouble because he has such severe pain from his back surgery. He recently had an MRI of his lumbar spine to evaluate continue back pain and evaluation by pain management. He reports that he has not been as active as usual due to his chronic pain. He also recently took a couple hour drive to go camping in [place]. The patient is followed by both Cardiology and surgical service at [facility]. ER staff tried to transfer the patient to [facility] for possible thrombectomy but vascular surgery declined transfer. Review of Systems Review of Systems: Narrative: 12 systems were reviewed with pertinent positives and negatives per HPI. Except as documented in the HPI, all other systems were reviewed and are negative. [facility] Past Medical History Medical History (Updated 05/02/21 @ 03:19 by Tata Kong DO) ASHD (arteriosclerotic heart disease) Back pain with history of spinal surgery Benign prostatic hyperplasia BMI 35.0-35.9,adult C. difficile diarrhea Chronic anemia Chronic orthostatic hypotension Chronic, continuous use of opioids Due to chronic lumbago. Colon polyps Coronary artery disease With history of stent to the mid LAD in November 2015. Cardiac catheterization in May 2017 showed a patent LAD stent and 90% ostial stenosis in a 3rd diagonal, which was a small vessel and jailed by previous stent. No other high-grade lesions were noted. Reportedly, he had a stent in November 2019 done at [facility] in [place]. Depression with anxiety Diabetes Dyslipidemia Essential tremor GERD (gastroesophageal reflux disease) Impaired functional mobility, balance, gait, and endurance Insulin dependent type 2 diabetes mellitus With diabetic peripheral neuropathy. Hemoglobin A1c was 8.3% in March 2021 Non-healing skin lesion Obstructive sleep apnea Intolerant to CPAP On watermaster drug therapy Osteoarthritis Paige-rectal abscess Prostate CA Status post external radiation. RBBB Rheumatoid arthritis Tobacco abuse Trauma Vitamin D deficiency Surgical History Surgical History (Updated 05/02/21 @ 03:20 by Tata Kong DO) Hx of heart artery stent X3 S/P tooth extraction Status post cataract extraction of both eyes with insertion of intraocular lens Status post cholecystectomy Status post inguinal hernia repair Status post lumbar spine operation X3 most recently December 2020 Status post tonsillectomy Status post vasectomy Family History Family History Father Asthma Family history of cardiovascular disease Mother Family history of cardiovascular disease Family history of arthritis
[2021-05-01 23:56] LABS: Partial Thromboplastin Time 65.2 SECONDS (22.3-36.8)
[2021-05-02] MEDS: HEPARIN SODIUM 5,000 UNITS/ML VIAL 3500 UNITS IV PUSH (00:05)
[2021-05-02] MEDS: diphenhydrAMINE HCl CAP 25 MG CAPSULE PO ×3 (00:41→16:38)
[2021-05-02] MEDS: HYDROcodone/acetaminophen (*CRX) 7.5-325 MG TABLET 1 TAB PO ×4 (00:41→22:55)
[2021-05-02 00:43] LABS: Glucose Point of Care 191 mg/dl (65-105)
[2021-05-02 06:00] VITALS: BP 132/71; PULSE 70; RESP 18; TEMP 36.3; O2SAT 97
[2021-05-02 06:09] LABS: Basophils Percent Auto 0.8 % (0.2-1.2); Eosinophils Absolute Auto 0.3 K/mm3 (0-0.3); Eosinophils Percent Auto 6.5 % (0-4.4); Hematocrit 38.4 % (42.0-52.0); Hemoglobin 12.6 g/dL (14.0-18.0); Immature Granulocyte Absolute 0.02 K/mm3 (0.00-0.031); Immature Granulocyte Percent A 0.4 % (0-0.5); Lymphocytes Absolute Auto 0.89 K/mm3 (0.9-3.2); Lymphocytes Percent Auto 17.1 % (18.3-44.2); Mean Corpuscular HGB Conc 32.8 g/dl (32-36); Mean Corpuscular Hemoglobin 27.4 pg (26-34); Mean Corpuscular Volume 83.5 fl (80-100); Mean Platelet Volume 9.6 fl (7.4-10.4); Monocytes Absolute Auto 0.6 K/mm3 (0.1-0.6); Monocytes Percent Auto 11.3 % (2.6-8.5); Neutrophils Absolute Auto 3.3 K/mm3 (1.3-6.7); Neutrophils Percent Auto 63.9 % (45.5-73.1); Platelet Count Result 235 k/mm3 (150-375); Red Cell Distribution Width 15.2 % (11.5-14.5); White Blood Count 5.2 K/mm3 (4.5-10.0)
[2021-05-02 06:21] LABS: Partial Thromboplastin Time 114.7 SECONDS (22.3-36.8)
[2021-05-02 06:30] LABS: Anion Gap 12 mmol/L (8-16); Blood Urea Nitrogen 24 mg/dL (9-20); Calcium 8.6 mg/dL (8.4-10.2); Carbon Dioxide 25 mmol/L (22-30); Chloride 99 mmol/L (98-107); Estimated CRCL calculation 73 ml/min; Estimated Glomerular Filt Rate > 60; Glucose 164 mg/dL (75-110); Potassium 4.1 mmol/L (3.4-5.0); Sodium 136 mmol/L (137-145)
[2021-05-02 07:43] LABS: Glucose Point of Care 181 mg/dl (65-105)
[2021-05-02] MEDS: PANTOPRAZOLE 40 MG TABLET PO (08:46)
[2021-05-02] MEDS: MULTIVITAMINS THERAPEUTIC TAB (*BKC) 1 TABLET PO (08:47)
[2021-05-02] MEDS: PRIMIDONE 50 MG TABLET PO ×3 (08:47→16:38)
[2021-05-02] MEDS: CHOLECALCIFEROL 1,000 UNITS TABLET 2000 UNITS PO (08:47)
[2021-05-02] MEDS: ASPIRIN 81 MG ENTERIC TABLET PO (08:47)
[2021-05-02] MEDS: RIVAROXABAN 15 MG TABLET PO ×2 (08:47→16:39)
[2021-05-02] MEDS: FOLIC ACID 0.4 MG TABLET 0.8 MG PO (08:47)
[2021-05-02] MEDS: GLIMEPIRIDE 2 MG TABLET PO (08:47)
[2021-05-02] MEDS: ATORVASTATIN 40 MG TABLET PO (08:47)
[2021-05-02] MEDS: ACIDOPHILUS/BULGARICUS CHEWABLE TABLET 4 TABLET BY MOUTH (08:48)
[2021-05-02] MEDS: GABAPENTIN 300 MG CAPSULE PO ×3 (08:48→16:38)
[2021-05-02] MEDS: CLOPIDOGREL BISULFATE 75 MG TABLET PO (08:48)
[2021-05-02] MEDS: MIDODRINE HCL 2.5 MG TABLET 5 MG PO ×2 (08:48→16:38)
[2021-05-02] MEDS: OMEGA 3 POLYUNSAT FATTY ACIDS 1 GM CAP PO (08:48)
[2021-05-02] MEDS: INSULIN HUMAN ISOPHAN/REGULAR 70/30 (*BKC) 100 UNITS/ML SUB-Q (08:54)
[2021-05-02] MEDS: HEPARIN SOD/D5W 100 UNITS/ML 25,000 UNITS/250 ML BAG 15 UNITS IV CONT (10:44)
[2021-05-02] MEDS: PHARMACIST COMMUNICATION ORDER 1 EACH XX (10:45)
[2021-05-02 11:34] LABS: Glucose Point of Care 218 mg/dl (65-105)
[2021-05-02] MEDS: INSULIN ASPART (*BKC) 100 UNITS/ML SUB-Q ×2 (12:34→18:31)
[2021-05-02 14:00] VITALS: BP 138/65; PULSE 64; RESP 14; TEMP 36.7; O2SAT 93
[2021-05-02] MEDS: GLIMEPIRIDE 1 MG TABLET PO (16:39)
--- NOTE | 2021-05-02 16:47 | PM.IMPN ---
Progress Note: A&P Assessment and Plan (1) Acute deep vein thrombosis (DVT) of left lower extremity: Qualifiers: Affected thrombotic vein of extremity: unspecified vein of extremity Qualified Code(s): I82.402 - Acute embolism and thrombosis of unspecified deep veins of left lower extremity Code(s): I82.402 - Acute embolism and thrombosis of unspecified deep veins of left lower extremity Status: Acute Assessment and Plan: Left LE doppler showing extensive nearly complete deep venous thrombosis involving left common femoral, femoral, popliteal and posterior tibial and peroneal veins. The patient has been started on heparin drip per protocol. The patient mentions that the surgeon that they may have a hematoma at his prior surgical site but unlikely the patient has significant hematoma this far out from surgery. Hgb stable. Zev initially felt he could not afford the Xarelto. Discussed other options including Coumadin but he is willing to pay the Xarelto kimble. Xarelto has been started. (2) Insulin dependent type 2 diabetes mellitus: Code(s): E11.9 - Type 2 diabetes mellitus without complications; Z79.4 - [facility]PC (current) use of insulin Status: Acute Assessment and Plan: The patient's blood glucose was reviewed on 05/02 Glucose remains reasonably well controlled. Continue AccuCheks covering with sliding scale. Hypoglycemia protocol available as needed. Continue current medications (3) Chronic back pain: Qualifiers: Back pain laterality: unspecified Back pain location: low back pain Sciatica presence: unspecified whether sciatica present Qualified Code(s): M54.5 - Low back pain; G89.29 - Other chronic pain Code(s): M54.9 - Dorsalgia, unspecified; G89.29 - Other chronic pain Status: Acute Assessment and Plan: Patient's pain chronic and persistent. He states the back pain has worsened since his back surgery. He is following up with paiin management for possible long acting agents and evaluation for a spinal stimulator. (4) Left leg pain: Code(s): M79.605 - Pain in left leg Status: Acute Assessment and Plan: Patient with persistent left leg pain. Unclear if this is related to the DVT and/or sciatic symptoms. Eduard have patient up with therapy before dicharge. Subjective Date/time seen: 05/02/21 16:47 Interval history: 75yo male with DM, CAD, POONAM and recent failed back surgery in December here for left LE pain and found to have extensive DVT. No change in left leg pain today. No hx of VTE. No hx of blood loss. No CP or SOB. Exam Narrative: Exam Narrative: AF 98.1 138/65 64 14 93% ra Gen - NARD Chest - bibasilar inspiratory crackles, nml RR CV - RRR S1/S2 Abd - Soft, NT/ND, Positive BS Ext - trace pitting LLE pedal edema Neuro - Alert and oriented. Nonfocal exam. Psych - Nml mood and affect Skin - Warm and dry Objective Data Vital Signs Vital Signs: Vital Signs - 24 hr 05/01/21 17:56 05/01/21 19:15 05/01/21 22:00 Temperature 97.7 F 97.0 F L 97.5 F L Pulse Rate 71 85 68 Respiratory Rate 12 18 18 Blood Pressure 146/77 H 156/87 H 138/68 Pulse Oximetry 98 97 96 05/02/21 06:00 05/02/21 14:00 Temperature 97.4 F L 98.1 F Pulse Rate 70 64 Respiratory Rate 18 14 Blood Pressure 132/71 138/65 Pulse Oximetry 97 93 Intake/Output Intake/Output: Intake & Output 04/29/21 04/30/21 05/01/21 05/02/21 23:59 23:59 23:59 23:59 Intake Total 1130 Output Total 1300 Balance -170 Meds/Results Medications: Active Medications Generic Name Dose Route Start Last Admin Trade Name Freq PRN Reason Stop Dose Admin Hydrocodone Bitart/Acetaminophen 1 tab 05/01/21 23:29 05/02/21 16:38 Hydrocodone/Acetaminophen (*Crx) 7.5-325 Mg Tablet PO 1 tab Q6H PRN Administration Pain (Scale Score 7-10) Aspirin 81 mg 05/02/21 09:00 05/02/21 08:47 Aspirin 81 Mg Enteric Table
[2021-05-02 17:17] LABS: Glucose Point of Care 225 mg/dl (65-105)
[2021-05-02] MEDS: INSULIN HUMAN ISOPHAN/REGULAR 70/30 (*BKC) 100 UNITS/ML 50 UNITS SUB-Q (18:33)
[2021-05-02] MEDS: MELATONIN 3 MG TABLET PO (21:37)
[2021-05-02 22:00] VITALS: BP 124/65; PULSE 68; RESP 18; TEMP 36.4; O2SAT 98
[2021-05-02 23:23] LABS: Glucose Point of Care 172 mg/dl (65-105)
[2021-05-03 06:00] VITALS: BP 123/68; PULSE 77; RESP 16; TEMP 36.2; O2SAT 96
[2021-05-03 08:31] LABS: Glucose Point of Care 124 mg/dl (65-105)
[2021-05-03] MEDS: PRIMIDONE 50 MG TABLET PO ×2 (08:45→12:52)
[2021-05-03] MEDS: GLIMEPIRIDE 2 MG TABLET PO (08:46)
[2021-05-03] MEDS: OMEGA 3 POLYUNSAT FATTY ACIDS 1 GM CAP PO (08:46)
[2021-05-03] MEDS: ATORVASTATIN 40 MG TABLET PO (08:46)
[2021-05-03] MEDS: FOLIC ACID 0.4 MG TABLET 0.8 MG PO (08:46)
[2021-05-03] MEDS: ACIDOPHILUS/BULGARICUS CHEWABLE TABLET 4 TABLET BY MOUTH (08:46)
[2021-05-03] MEDS: MULTIVITAMINS THERAPEUTIC TAB (*BKC) 1 TABLET PO (08:46)
[2021-05-03] MEDS: CHOLECALCIFEROL 1,000 UNITS TABLET 2000 UNITS PO (08:46)
[2021-05-03] MEDS: PANTOPRAZOLE 40 MG TABLET PO (08:46)
[2021-05-03] MEDS: MIDODRINE HCL 2.5 MG TABLET 5 MG PO (08:46)
[2021-05-03] MEDS: RIVAROXABAN 15 MG TABLET PO (08:46)
[2021-05-03] MEDS: ASPIRIN 81 MG ENTERIC TABLET PO (08:47)
[2021-05-03] MEDS: HYDROcodone/acetaminophen (*CRX) 7.5-325 MG TABLET 1 TAB PO (08:47)
[2021-05-03] MEDS: GABAPENTIN 300 MG CAPSULE 900 MG PO ×2 (08:47→12:52)
[2021-05-03] MEDS: CLOPIDOGREL BISULFATE 75 MG TABLET PO (08:47)
[2021-05-03] MEDS: diphenhydrAMINE HCl CAP 25 MG CAPSULE PO (08:48)
[2021-05-03] MEDS: INSULIN HUMAN ISOPHAN/REGULAR 70/30 (*BKC) 100 UNITS/ML SUB-Q (08:55)
[2021-05-03] MEDS: INSULIN ASPART (*BKC) 100 UNITS/ML SUB-Q (12:53)
[2021-05-03 13:13] LABS: Glucose Point of Care 285 mg/dl (65-105)
[2021-05-03 14:00] VITALS: BP 153/60; PULSE 68; RESP 18; TEMP 36.2; O2SAT 96
--- NOTE | 2021-05-03 15:07 | PM.DS ---
DS: Admitting Diagnosis Admitting Diagnosis Admitting Diagnosis: Left leg pain and swelling DS: Discharge Diagnosis Discharge Diagnosis (1) Acute deep vein thrombosis (DVT) of left lower extremity: Qualifiers: Affected thrombotic vein of extremity: unspecified vein of extremity Qualified Code(s): I82.402 - Acute embolism and thrombosis of unspecified deep veins of left lower extremity Code(s): I82.402 - Acute embolism and thrombosis of unspecified deep veins of left lower extremity Status: Acute Assessment and Plan: Left LE doppler on presentation showing extensive nearly complete deep venous thrombosis involving left common femoral, femoral, popliteal and posterior tibial and peroneal veins. The patient was started on heparin drip per protocol. The patient mentions that the surgeon that they may have a hematoma at his prior surgical site but unlikely the patient has significant hematoma this far out from surgery. Hgb remained stable. Patient initially felt he could not afford NOAC. Discussed other options including Coumadin but he is willing to pay the higher kimble. He was started on Xarelto but family wanted it changed to Eliquis since the PCP could provide some samples of this. Dosing was discussed win detail with the patient and family in the room. Patient discharged home with Eliquis. (2) Insulin dependent type 2 diabetes mellitus: Code(s): E11.9 - Type 2 diabetes mellitus without complications; Z79.4 - penitentiary (current) use of insulin Status: Acute Assessment and Plan: The patient's blood glucose was monitored closely. Glucose remained reasonably well controlled. He was monitored with AccuCheks covering with sliding scale. Hypoglycemia protocol was available as needed. (3) Chronic back pain: Qualifiers: Back pain laterality: unspecified Back pain location: low back pain Sciatica presence: unspecified whether sciatica present Qualified Code(s): M54.5 - Low back pain; G89.29 - Other chronic pain Code(s): M54.9 - Dorsalgia, unspecified; G89.29 - Other chronic pain Status: Acute Assessment and Plan: Patient has chronic, persistent back pain. He states the back pain has worsened since his back surgery. He is following up with pain management for possible long acting agents and evaluation for a spinal stimulator. (4) Left leg pain: Code(s): M79.605 - Pain in left leg Status: Acute Assessment and Plan: Patient's left leg pain decreased by the time of discharge. This is related to the DVT with possible sciatic component. We had patient work with therapy and he was up walking to the bathroom without dificulty. DS: Summary Hospital Course Reason for hospitalization: 75yo male with DM, CAD, POONAM and recent failed back surgery in December here for left LE pain and found to have extensive DVT. Please see H&P for details. Hospital Course: Please see above for details of hospital course. Status at Discharge Cognitive/behavioral status at discharge: Stable Time Spent with Patient Time attestation: Total time spent providing and/or coordinating discharge services: 35 minutes Time spent: Greater than 30 minutes Specific discharge activities: Patient Education. Exam Narrative: Exam Narrative: Last time he had a cardiac stent placed was November 29, 2019. Left leg pain is improved. No chest pain or shortness of breath. Up walking in the room AF 97.2 153/60 68 18 96% ra Gen - NARD Chest -clear to auscultation bilaterally. CV - RRR S1/S2 Abd - Soft, NT/ND, Positive BS Ext -decrease edema to the left lower extremity Psych - Nml mood and affect Skin - Warm and dry DS: Data Data Completed and Pending Labs on day of discharge: Labs from last 24 hours 05/03/21 05/03/21 05/02/21 12:50 08:29 23:01 POC Capillary Glucose 285 H 124 H 172 H 05/02/21 17:11 POC Capillary Glucose 225 H Disc
--- NOTE | 2021-05-03 16:00 | PC.NURSE ---
Pt is being discharged. Pt had IV removed, and discharge instructions were reviewed with pt and his . Both exhibited good understanding of discharge instructions. Pt was assisted to wheelchair and taken to the front door by staff.
== END 2021-05-03 16:00 | disposition home or self-care (01) | DRG 301 ==
LOC: ANHED 17:11 → ANH3MEDSUR 18:40
PROVIDERS: Internal Medicine; Physician Assistant; Admitting Provider Family Medicine; Emergency Provider Emergency Medicine; PCP Internal Medicine; Visit Provider Internal Medicine
DX: I82.412 Acute embolism and thrombosis of left femoral vein (principal); I82.432 Acute embolism and thrombosis of left popliteal vein; I82.452 Acute embolism and thrombosis of left peroneal vein; I82.442 Acute embolism and thrombosis of left tibial vein; G89.29 Other chronic pain; M54.9 Dorsalgia, unspecified; I25.10 Atherosclerotic heart disease of native coronary artery without angina pectoris; G47.33 Obstructive sleep apnea (adult) (pediatric); N40.0 Benign prostatic hyperplasia without lower urinary tract symptoms; D64.9 Anemia, unspecified; F41.8 Other specified anxiety disorders; E78.5 Hyperlipidemia, unspecified; K21.9 Gastro-esophageal reflux disease without esophagitis; E11.42 Type 2 diabetes mellitus with diabetic polyneuropathy; M19.90 Unspecified osteoarthritis, unspecified site; M06.9 Rheumatoid arthritis, unspecified; E55.9 Vitamin D deficiency, unspecified; F17.290 Nicotine dependence, other tobacco product, uncomplicated; E66.3 Overweight; Z68.35 Body mass index [BMI] 35.0-35.9, adult; Z95.5 Presence of coronary angioplasty implant and graft; Z85.46 Personal history of malignant neoplasm of prostate; Z90.49 Acquired absence of other specified parts of digestive tract; Z98.42 Cataract extraction status, left eye; Z98.41 Cataract extraction status, right eye
CPT/HCPCS: 36415; 80048; 82948; 85025; 85610; 85730; 93971; 96365; 96366; 97161; 97165; 99285; A9270; G0378; J1644; J1815

== ENCOUNTER 2021-05-08 10:46 | Outpatient (CLI) | payer MEDICARE, SELFPAY ==
[2021-05-08 12:00] LABS: Basophils Absolute Auto 0.1 K/mm3 (0.0-0.1); Basophils Percent Auto 0.7 % (0.2-1.2); Eosinophils Absolute Auto 0.3 K/mm3 (0-0.3); Eosinophils Percent Auto 4.5 % (0-4.4); Hematocrit 40.2 % (42.0-52.0); Hemoglobin 13.2 g/dL (14.0-18.0); Immature Granulocyte Absolute 0.04 K/mm3 (0.00-0.031); Immature Granulocyte Percent A 0.6 % (0-0.5); Lymphocytes Absolute Auto 0.67 K/mm3 (0.9-3.2); Lymphocytes Percent Auto 9.5 % (18.3-44.2); Mean Corpuscular HGB Conc 32.8 g/dl (32-36); Mean Corpuscular Hemoglobin 27.3 pg (26-34); Mean Corpuscular Volume 83.2 fl (80-100); Mean Platelet Volume 9.5 fl (7.4-10.4); Monocytes Absolute Auto 0.8 K/mm3 (0.1-0.6); Monocytes Percent Auto 10.9 % (2.6-8.5); Neutrophils Absolute Auto 5.2 K/mm3 (1.3-6.7); Neutrophils Percent Auto 73.8 % (45.5-73.1); Platelet Count Result 294 k/mm3 (150-375); Red Blood Count 4.83 M/mm3 (4.6-6.20); White Blood Count 7.1 K/mm3 (4.5-10.0)
[2021-05-08 13:33] LABS: CRP 1.1 mg/dL (<1.0)
[2021-05-08 13:34] LABS: Erythrocyte Sedimentation Rate 21 mm/hr (0-20)
== END 2021-05-08 10:47 | disposition home or self-care (01) ==
PROVIDERS: PCP Internal Medicine; Visit Provider Nurse Practitioner Family
DX: Z11.9 Encounter for screening for infectious and parasitic diseases, unspecified (principal); L76.34 Postprocedural seroma of skin and subcutaneous tissue following other procedure
CPT/HCPCS: 36415; 85025; 85652; 86140

== ENCOUNTER 2021-05-18 09:55 | Outpatient (CLI) | payer MEDICARE, SELFPAY ==
--- NOTE | ~2021-05-18 | XR_ITS ---
EXAMINATION: XR foot RT min 3V DATE: 05/18/2021 10:26 INDICATION: Right second toe pain. TECHNIQUE: 4 views of right foot were obtained. COMPARISON: None. FINDINGS: Bone alignment is normal. No fracture. There is mild osteoarthritis of first metatarsophala ngeal joint and some the interphalangeal joints and midfoot joints. There are enthesophytes at the po sterior and plantar aspects of calcaneal tuberosity. IMPRESSION: 1. Polyarticular osteoarthritis. Reviewed, dictated and finalized at location [facility].
== END 2021-05-18 09:56 | disposition home or self-care (01) ==
PROVIDERS: PCP Internal Medicine; Visit Provider Internal Medicine
DX: M19.071 Primary osteoarthritis, right ankle and foot (principal)
CPT/HCPCS: 73630

== ENCOUNTER 2021-06-07 10:24 | Outpatient (CLI) | payer MEDICARE, SELFPAY ==
--- NOTE | ~2021-06-07 | CT_ITS ---
EXAMINATION: CT knee LT wo con DATE: 06/07/2021 11:00 INDICATION: Left knee pain TECHNIQUE: High resolution computed tomography (CT) of the left knee was performed without intravenou s contrast. Additional sagittal and coronal reconstructions were performed. Automated exposure contro l and iterative reconstruction technique were employed. The dose-length product was 423.15 mGy-cm. COMPARISON: None FINDINGS: Alignment is normal. No fracture. Joint space appears normal on nonweightbearing imaging. Tiny margin al osteophytes at the patellofemoral compartment consistent with at least mild osteoarthritis. Physio logic amount fluid in the left knee joint. Small proximal and distal patellar enthesophytes with aleksandra tional several small the hepatic ossicles in the distal quadriceps tendon. Prepatellar subcutaneous e [place] is additional diffuse subcutaneous edema at the visualized proximal calf. Soft tissues are other shea unremarkable. IMPRESSION: 1. No left knee joint effusion or acute osseous abnormality. 2. Mild patellofemoral osteoarthritis. Reviewed, dictated and finalized at location A.
[2021-06-07 11:43] LABS: Basophils Percent Auto 0.6 % (0.2-1.2); Eosinophils Absolute Auto 0.4 K/mm3 (0-0.3); Eosinophils Percent Auto 5.7 % (0-4.4); Hematocrit 43.5 % (42.0-52.0); Hemoglobin 13.8 g/dL (14.0-18.0); Immature Granulocyte Absolute 0.01 K/mm3 (0.00-0.031); Immature Granulocyte Percent A 0.2 % (0-0.5); Lymphocytes Absolute Auto 0.66 K/mm3 (0.9-3.2); Lymphocytes Percent Auto 10.5 % (18.3-44.2); Mean Corpuscular HGB Conc 31.7 g/dl (32-36); Mean Corpuscular Hemoglobin 26.6 pg (26-34); Mean Platelet Volume 9.7 fl (7.4-10.4); Monocytes Absolute Auto 0.7 K/mm3 (0.1-0.6); Monocytes Percent Auto 10.5 % (2.6-8.5); Neutrophils Absolute Auto 4.6 K/mm3 (1.3-6.7); Neutrophils Percent Auto 72.5 % (45.5-73.1); Platelet Count Result 239 k/mm3 (150-375); Red Blood Count 5.18 M/mm3 (4.6-6.20); White Blood Count 6.3 K/mm3 (4.5-10.0)
[2021-06-07 11:56] LABS: Anion Gap 10 mmol/L (8-16); Blood Urea Nitrogen 20 mg/dL (9-20); CRP 0.7 mg/dL (<1.0); Calcium 9.5 mg/dL (8.4-10.2); Carbon Dioxide 28 mmol/L (22-30); Chloride 99 mmol/L (98-107); Estimated Glomerular Filt Rate > 60; Glucose 191 mg/dL (65-110); Potassium 4.3 mmol/L (3.4-5.0); Sodium 137 mmol/L (137-145)
[2021-06-07 12:44] LABS: Erythrocyte Sedimentation Rate 19 mm/hr (0-20)
== END 2021-06-07 10:25 | disposition home or self-care (01) ==
PROVIDERS: PCP Internal Medicine; Visit Provider Internal Medicine
DX: M17.12 Unilateral primary osteoarthritis, left knee (principal); M79.605 Pain in left leg; R19.7 Diarrhea, unspecified
CPT/HCPCS: 36415; 73700; 80048; 85025; 85652; 86140; 87045; 87046; 87177; 87209; 87324; 87427; 89055

== ENCOUNTER 2021-07-06 11:56 | Outpatient (CLI) | payer MEDICARE, SELFPAY ==
--- NOTE | ~2021-07-06 | US_ITS ---
3 EXAMINATION:US venous doppler LE LT INDICATION:Left leg pain. History of DVT on prior ultrasound dated 05/01/2021 TECHNIQUE: Multiple grayscale, color flow and Doppler images of the left lower extremity deep venous systems were obtained and reviewed. COMPARISON:05/01/2021 FINDINGS: The popliteal veins demonstrate normal respiratory variation, augmentation and compressibil ity. Color flow is also seen within the posterior tibial, peroneal, greater saphenous and profunda v eins. There is partially occlusive thrombosis of the left femoral vein, possibly chronic. IMPRESSION: 1: Partially occlusive thrombosis of the left femoral vein, possibly chronic. Reviewed, dictated and finalized at location A.
[2021-07-06 14:34] LABS: Basophils Percent Auto 0.3 % (0.2-1.2); Eosinophils Percent Auto 0.3 % (0-4.4); Hematocrit 39.9 % (42.0-52.0); Hemoglobin 13.1 g/dL (14.0-18.0); Immature Granulocyte Percent A 1.1 % (0-0.5); Lymphocytes Absolute Auto 1.01 K/mm3 (0.9-3.2); Lymphocytes Percent Auto 11.5 % (18.3-44.2); Mean Corpuscular HGB Conc 32.8 g/dl (32-36); Mean Corpuscular Hemoglobin 26.8 pg (26-34); Mean Corpuscular Volume 81.8 fl (80-100); Mean Platelet Volume 9.9 fl (7.4-10.4); Monocytes Absolute Auto 0.8 K/mm3 (0.1-0.6); Monocytes Percent Auto 9.2 % (2.6-8.5); Neutrophils Absolute Auto 6.8 K/mm3 (1.3-6.7); Neutrophils Percent Auto 77.6 % (45.5-73.1); Platelet Count Result 235 k/mm3 (150-375); Red Blood Count 4.88 M/mm3 (4.6-6.20); Red Cell Distribution Width 15.7 % (11.5-14.5); White Blood Count 8.8 K/mm3 (4.5-10.0)
[2021-07-06 14:43] LABS: Prothrombin Time 12.7 Seconds (11.1-14.7)
[2021-07-06 14:44] LABS: Partial Thromboplastin Time 28.1 SECONDS (22.3-36.8)
[2021-07-06 14:46] LABS: Anion Gap 5 mmol/L (8-16); Blood Urea Nitrogen 26 mg/dL (9-20); Calcium 9.3 mg/dL (8.4-10.2); Carbon Dioxide 31 mmol/L (22-30); Chloride 96 mmol/L (98-107); D Dimer 1.68 ug/mL (<0.48); Estimated Glomerular Filt Rate > 60; Glucose 91 mg/dL (65-110); Potassium 4.3 mmol/L (3.4-5.0); Sodium 132 mmol/L (137-145)
== END 2021-07-06 11:57 | disposition home or self-care (01) ==
PROVIDERS: PCP Internal Medicine; Visit Provider Internal Medicine
DX: M79.605 Pain in left leg (principal); I82.402 Acute embolism and thrombosis of unspecified deep veins of left lower extremity; Z79.899 Other long term (current) drug therapy
CPT/HCPCS: 36415; 80048; 85025; 85380; 85610; 85730; 93971

== ENCOUNTER 2021-08-17 17:07 | Outpatient (CLI) | payer MEDICARE, SELFPAY ==
--- NOTE | ~2021-08-17 | MR_ITS ---
EXAMINATION: MR thoracic spine wo con DATE: 08/17/2021 18:06 INDICATION: Thoracic back pain. TECHNIQUE: Magnetic resonance imaging (MRI) of the thoracic spine was performed without intravenous c ontrast. Sagittal localizer T1-weighted FSE of the cervical spine was obtained. Thoracic spine sequen cole included sagittal T2-weighted FSE, sagittal T1-weighted FSE, sagittal STIR FSE, and axial T2-weig hted FSE. COMPARISON: Chest 2 views 01/27/2019 FINDINGS: Bone alignment is normal. There is mild chronic anterior wedging of T11 and T12 vertebral b odies. There are Schmorl's nodes at multiple levels. There is mildly decreased disc height at T9-T10 and T11-T12. At T6-T7, there is a left central extrusion with mild central canal stenosis. At T11-T12 , the disc is bulging. There is multilevel facet joint osteoarthritis, severe bilaterally at T7-T8, T 8-T9, and T11-T12. On the right, there is mild neural foraminal stenosis at T7-T8, T8-T9, T9-T10 and moderate neural foraminal stenosis at T11-T12. On the left, there is mild neural foraminal stenosis a t T1-T2, T7-T8, T8-T9, and T11-T12. The spinal cord signal intensity is normal. IMPRESSION: 1. Mild thoracic spondylosis. Reviewed, dictated and finalized at location A.
== END 2021-08-17 17:08 | disposition home or self-care (01) ==
LOC: ANHIMG 17:08
PROVIDERS: PCP Internal Medicine; Visit Provider Nurse Practitioner Family
DX: M54.6 Pain in thoracic spine (principal); M47.814 Spondylosis without myelopathy or radiculopathy, thoracic region
CPT/HCPCS: 72146

== ENCOUNTER 2021-09-01 10:06 | Outpatient (CLI) | payer MEDICARE, SELFPAY ==
[2021-09-01 10:48] LABS: Alanine Aminotransferase 21 U/L (4-50); Albumin Level 4.3 g/dL (3.5-5.1); Alkaline Phosphatase 91 U/L (38-126); Anion Gap 5 mmol/L (8-16); Aspartate Amino Transferase 32 U/L (17-59); Bilirubin,Total 0.6 mg/dL (0.2-1.3); Blood Urea Nitrogen 13 mg/dL (9-20); Calcium 9.3 mg/dL (8.4-10.2); Carbon Dioxide 28 mmol/L (22-30); Chloride 104 mmol/L (98-107); Cholesterol 120 mg/dL (0-200); Estimated Glomerular Filt Rate > 60; Glucose 163 mg/dL (65-110); HDL Direct 54 mg/dL; Potassium 4.2 mmol/L (3.4-5.0); Sodium 137 mmol/L (137-145); Triglycerides 178 mg/dL (<150)
[2021-09-01 10:59] LABS: LDL Cholesterol Direct 37 mg/dL
[2021-09-01 11:02] LABS: Hemoglobin A1C 8.1 % (<5.7)
[2021-09-01 11:04] LABS: Free T4 Free Thyroxine 1.07 ng/mL (0.78-2.19); Vitamin D 25 Hydroxy 41.5 ng/mL
== END 2021-09-01 10:07 | disposition home or self-care (01) ==
LOC: ANHLAB 10:08
PROVIDERS: PCP Internal Medicine; Visit Provider Internal Medicine
DX: E11.9 Type 2 diabetes mellitus without complications (principal); E55.9 Vitamin D deficiency, unspecified; E78.2 Mixed hyperlipidemia; I10 Essential (primary) hypertension; Z79.899 Other long term (current) drug therapy
CPT/HCPCS: 36415; 80053; 80061; 82306; 83036; 84439; 84443

== ENCOUNTER 2021-09-19 09:00 | Outpatient (RCR) | payer MEDICARE, SELFPAY ==
--- NOTE | 2021-08-13 15:49 | PTOPEVAL ---
Thank you for referring Kameron Man to [facility].? The patient is scheduled to be seen for therapy 2 x/week for 6 weeks. Please review, sign, date and return this plan of care TRIP. I agree with and certify that the following plan of care is medically necessary. Referring Physician Date Attending Provider: Lizett Link, Diagnosis low back pain, decreased mobility Onset chronic Additional Evaluation Detail 3 previous spinal surgeries with most recent 01/07. He was in [facility] rehab for 1 wk in Dec, [facility] for [facility] due to progressing weakness. He had a 2 falls in June Subjective Information He has not consistently Query Text:As Reported By Patient/ performing a HEP, but trying Family to walk at home. He uses a walker at home, but does have a rollator for distance. He is performing 75% of his ADL's. He requires assistance with bed mobility, supv on steps. Previous Treatments Previous Treatments For This Problem 2 bouts of rehab Prior Level of Function Home Setting Home Type House,Multiple Levels Environmental Barriers Railing, Ascend Left,Railing, Bilateral,Stairs, Greater than 4 Living Situation With Spouse Support Available Local Family Support,Physical Assist Available Mobility Assistive Devices (Used Last 3 Walker, Rollator,Walker, Months) Wheeled Toileting Equipment Commode, Bedside Pain Assessment Self Report Pain Assessment Lower Back Reported Pain Level 8 Pain Description Radiating Pain Radiation Left Leg,Right Leg Lowest Pain Intensity 6 Greatest Pain Intensity 9 Pain Aggravating Factors Exercise/Activity Pain Behaviors Anxious Lower Extremity Muscle Strength Testing Hip Strength Right Hip Flexion Strength 2 Poor Hip Extension Strength 2 Poor Hip Abduction Strength 2 Poor Hip Adduction Strength 2 Poor Left Hip Flexion Strength 2 Poor Hip Extension Strength 2 Poor Hip Abduction Strength 2 Poor Knee Strength Right Knee Flexion Strength 3+ Fair + Knee Extension Strength 3 Fair Left Knee Flexion Strength 3 Fair Knee Extension Strength 3 Fair Knee Strength Comments
--- NOTE | 2021-09-17 11:24 | PTOPEVAL ---
Physical therapy progress note Thank you for referring Kameron Man to [facility].? See summary below for objective measures, progress and update on function. The patient is scheduled to be seen for therapy?1-2 x/week for 3-4 weeks. Please review, sign, date and return this plan of care TRIP. I agree with and certify that the following plan of care is medically necessary. Referring Physician Date Attending Provider: Lizett Link, Diagnosis low back pain, decreased mobility Onset chronic Additional Evaluation Detail 3 previous spinal surgeries with most recent 01/07. He was in [facility] rehab for 1 wk in Dec , [facility]21 for therapy due to progressing weakness. He had a 2 falls in June Subjective Information He has not consistently Query Text:As Reported By Patient/ performing a HEP. He uses a Family walker at home, but does have a rollator for distance. He requires assistance with bathing and with LE dressing. He does require assistance with bed mobility, transfers or ambulation. He is using a Go-GO scooter for community mobility. Pain Assessment Lower Back Reported Pain Level 6 Pain Description Aching,Sharp Pain Frequency Chronic Lowest Pain Intensity 5 Greatest Pain Intensity 8 Pain Aggravating Factors ,Exercise/ Activity,Walking,Weight Bearing/Standing Lower Extremity Range of Motion General Lower Extremity Range of Motion Gross Lower Extremity Range of Motion passive hip flex ~ 100 dg Comments Lower Extremity Muscle Strength Testing Hip Strength Right Hip Flexion Strength 3+ Fair + Hip Extension Strength 3- Fair - Hip Abduction Strength 2+ Poor + Hip Adduction Strength 2+ Poor + Hip Strength Comments patial range bridge Left Hip Flexion Strength 3- Fair - Hip Extension Strength 3- Fair - Hip Abduction Strength 2 Poor Hip Adduction Strength 2 Poor Hip Strength Comments partial range bridge Knee Strength Right Knee Flexion Strength 4- Good - Knee Extension Strength 4 Good Knee Strength Comments tested in seated Left Knee Flexion Strength 3+ Fair + Knee Extension Strength 3 Fair
--- NOTE | 2021-10-08 07:54 | PCPTNOTE ---
Admitting Provider: Attending Provider: Lizett Link DO Patient:Kameron Man Date of :1945 Discharge Summary Patient has not returned for any further treatments since 09/19/2021, therefore he will be discharged at this time. No changes in his function since his last update on 09/23/21. Patient?s initial visit was on 08/13/2021 12:30 and he had a total of 12 visits. The goals have been partially met at this time. Thank you for referring this patient to [facility]. Please review, sign, date and return this discharge summary TRIP. I have been updated about the patient's current status and I agree with discharge from the above service at this time. Referring Physician Date
== END 2021-10-08 16:14 | disposition home or self-care (01) ==
LOC: ANHPT 09:00
PROVIDERS: PCP Internal Medicine; Visit Provider Physical Medicine & Rehabilitation
DX: M54.5 Low back pain (principal); G89.29 Other chronic pain; Z74.09 Other reduced mobility
CPT/HCPCS: 97110; 97163; 97530

== ENCOUNTER 2021-11-05 11:26 | Outpatient (CLI) | payer MEDICARE, SELFPAY ==
--- NOTE | ~2021-11-05 | XR_ITS ---
XR_[id number] DATE: 11/05/2021 11:44 INDICATION: Neck pain. No injury. TECHNIQUE: AP, lateral, open mouth, swimmer views COMPARISON: None FINDINGS: There is normal alignment of the cervical spine, without evidence of fracture, dislocation, locked facet. No prevertebral soft tissue swelling. There is mild degenerative disc disease. IMPRESSION: Mild degenerative change Reviewed, dictated and finalized at [facility]. Reviewed, dictated and finalized at location B. COOK IMPRESSION: Mild degenerative change
== END 2021-11-05 11:27 | disposition home or self-care (01) ==
LOC: ANHIMG 11:31
PROVIDERS: PCP Internal Medicine; Visit Provider Internal Medicine
DX: M47.812 Spondylosis without myelopathy or radiculopathy, cervical region (principal)
CPT/HCPCS: 72040

== ENCOUNTER 2021-12-03 09:48 | Inpatient (IN) | payer MEDICARE, SELFPAY ==
[2021-12-03] VITALS (40 sets, daily range): BP systolic 107–148; BP diastolic 59–98; PULSE 66–132; RESP 12–22; TEMP 36.4–37.1; O2SAT 93–100; BMI 33.2; BMI 33.4
--- NOTE | ~2021-12-03 | XR_ITS ---
EXAMINATION: XR chest 2V DATE: 12/03/2021 10:28 INDICATION: Heart palpitations. Chest pain. TECHNIQUE: PA and lateral views of the chest were obtained. COMPARISON: Chest radiograph dated 01/27/[address] abdomen dated 01/12/2020 FINDINGS: Chronic subtle reticular opacities at the right costophrenic angle which could represent atelectasis/ scarring or mild chronic interstitial lung disease. No other airspace opacities, pulmonary edema, ple ural effusion or pneumothorax. The cardiomediastinal silhouette is normal. Prominent hypertrophic dom nge at the anterior first ribs. IMPRESSION: 1. Unchanged minimal atelectasis/scarring versus chronic interstitial lung disease at the right costo phrenic angle. Reviewed, dictated and finalized at location A. ATING ROOM TECHNOLOGIST IMPRESSION: 1. Unchanged minimal atelectasis/scarring versus chronic interstitial lung dise ase at the right costophrenic angle.
--- NOTE | 2021-12-03 10:09 | ECG_ITS ---
Measurements Intervals [place] Rate: 136 P: LA: 0 QRS: 259 QRSD: 162 T: 38 QT: 359 QTc: 541 Interpretive Statements ATRIAL FLUTTER/TACHYCARDIA WITH RAPID VENTRICULAR RESPONSE RIGHT AXIS DEVIATION RIGHT BUNDLE BRANCH BLOCK BASELINE ARTIFACT- V3 ABNORMAL ECG Electronically Signed On 12-03-2021 11:53:04 SOFTWARE SUPPORT ENGINEER by Woo Daniels D.O.
[2021-12-03 10:21] LABS: Glucose Point of Care 190 mg/dl (65-105)
[2021-12-03 10:29] LABS: Prothrombin Time 12.7 Seconds (11.1-14.7)
[2021-12-03 10:30] LABS: Partial Thromboplastin Time 29.3 SECONDS (22.3-36.8)
[2021-12-03 10:41] LABS: Alanine Aminotransferase 15 U/L (4-50); Albumin Level 4.1 g/dL (3.5-5.1); Alkaline Phosphatase 101 U/L (38-126); Anion Gap 12 mmol/L (8-16); Aspartate Amino Transferase 32 U/L (17-59); Bilirubin,Total 0.7 mg/dL (0.2-1.3); Blood Urea Nitrogen 21 mg/dL (9-20); Calcium 8.9 mg/dL (8.4-10.2); Carbon Dioxide 21 mmol/L (22-30); Chloride 100 mmol/L (98-107); Estimated CRCL calculation 73 ml/min; Estimated Glomerular Filt Rate > 60; Glucose 174 mg/dL (65-110); Lipase 39 U/L (23-300); Potassium 4.7 mmol/L (3.4-5.0); Sodium 133 mmol/L (137-145)
[2021-12-03 10:48] LABS: Troponin I < 0.012 ng/mL (0.000-0.034)
[2021-12-03 10:50] LABS: Basophils Absolute Auto 0.1 K/mm3 (0.0-0.1); Basophils Percent Auto 0.7 % (0.2-1.2); Eosinophils Absolute Auto 0.2 K/mm3 (0-0.3); Eosinophils Percent Auto 2.2 % (0-4.4); Hematocrit 43.9 % (42.0-52.0); Hemoglobin 14.5 g/dL (14.0-18.0); Immature Granulocyte Absolute 0.02 K/mm3 (0.00-0.031); Immature Granulocyte Percent A 0.3 % (0-0.5); Lymphocytes Absolute Auto 0.86 K/mm3 (0.9-3.2); Lymphocytes Percent Auto 11.9 % (18.3-44.2); Mean Corpuscular Hemoglobin 27.9 pg (26-34); Mean Corpuscular Volume 84.6 fl (80-100); Mean Platelet Volume 9.6 fl (7.4-10.4); Monocytes Absolute Auto 0.6 K/mm3 (0.1-0.6); Monocytes Percent Auto 8.8 % (2.6-8.5); Neutrophils Absolute Auto 5.5 K/mm3 (1.3-6.7); Neutrophils Percent Auto 76.1 % (45.5-73.1); Platelet Count Result 243 k/mm3 (150-375); Red Blood Count 5.19 M/mm3 (4.6-6.20); Red Cell Distribution Width 14.6 % (11.5-14.5); White Blood Count 7.2 K/mm3 (4.5-10.0)
--- NOTE | 2021-12-03 11:32 | ED.GENADULT ---
HPI - General Adult General Chief complaint: Arrhythmia/Palpitations Stated complaint: rapid heartbeat Time Seen by Provider: 12/03/21 11:10 Source: patient History of Present Illness HPI narrative: Patient is a 76 y/o male sent here for tachycardia. He states that he was in Dr. Pretty' office this morning for routine visit and found to have HR in 130s and thus sent to ED. He states that he feels well and does not notice his heart beating fast. He does not know when this started. He is not aware of any history of tachycardia. He has no chest pain or SOB. He has chronic diffuse joint pain due to rheumatoid arthritis. Related Data Home Medications Medication Instructions Recorded Confirmed aspirin [Adult Low Dose Aspirin] 81 mg PO DAILY 01/21/20 12/03/21 cholecalciferol (vitamin D3) 2,000 unit PO DAILY 01/21/20 12/03/21 [Vitamin D3] lactobacillus combination no.9 4 4,000 mmu cells PO DAILY 03/20/20 12/03/21 billion cell capsule glimepiride 2 mg PO DAILY 05/01/21 12/03/21 atorvastatin 40 mg PO DAILY 12/03/21 12/03/21 gabapentin 900 mg PO TID 12/03/21 12/03/21 glimepiride 1 mg PO HS 12/03/21 12/03/21 oxycodone myristate [Xtampza ER] 13.5 mg PO BID 12/03/21 12/03/21 pantoprazole [Protonix] 40 mg PO QAM 12/03/21 12/03/21 primidone 50 mg PO TID 12/03/21 12/03/21 psyllium husk [Daily Fiber] 0.4 g PO DAILY 12/03/21 12/03/21 Allergies Allergy/AdvReac Type Severity Reaction Status Date / Time fentanyl Allergy Unknown Itching Verified 12/03/21 12:20 tramadol Allergy Unknown Itching Verified 12/03/21 12:20 Review of Systems Constitutional: Constitutional: Denies chills, Denies fever(s), Denies headache(s) and Denies weakness Eyes: Eyes: Denies blurry vision ENT: Denies headache(s) and Denies neck pain Cardiovascular: Cardiovascular: Denies chest pain and Denies dyspnea Respiratory: Respiratory: Denies cough and Denies dyspnea Gastrointestinal: Gastrointestinal: Denies abdominal pain, Denies diarrhea, Denies nausea and Denies vomiting Genitourinary: Genitourinary: Denies hematuria and Denies dysuria Musculoskeletal: Musculoskeletal: Denies back pain, Reports arthralgias and Denies neck pain Neurologic: Denies headache(s) and Denies weakness [facility] Past Medical History Medical History (Updated 12/03/21 @ 16:54 by Shagufta Serrano MD) ASHD (arteriosclerotic heart disease) Back pain with history of spinal surgery Benign prostatic hyperplasia BMI 33.0-33.9,adult BMI 35.0-35.9,adult Bruise of toe C. difficile diarrhea Changing skin lesion Chronic anemia Chronic low back pain Chronic orthostatic hypotension Chronic, continuous use of opioids Due to chronic lumbago. Claustrophobia Colon polyps Coronary artery disease With history of stent to the mid LAD in November 2015. Cardiac catheterization in May 2017 showed a patent LAD stent and 90% ostial stenosis in a 3rd diagonal, which was a small vessel and jailed by previous stent. No other high-grade lesions were noted. Reportedly, he had a stent in November 2019 done at [facility] in [place]. 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 RBBB Rheumatoid arthritis Swelling of left hand Tobacco abuse Toe infection Toe pain, right Trauma Vision changes Vitamin D deficiency Surgical History Surgical History (Updated 12/03/21 @ 13:29 by Jenifer Pollock NP) History of removal of pigmented skin lesion Hx of heart artery s
[2021-12-03] MEDS: dilTIAZem HCl INJ 25 MG/5 ML VIAL 10 MG IV PUSH (11:38)
[2021-12-03] MEDS: dilTIAZem 100 MG/100 ML 100 MG/100 ML BAG IV CONT (11:40)
--- NOTE | 2021-12-03 12:41 | ECG_ITS ---
Measurements Intervals [place] Rate: 66 P: [place]: 0 QRS: 267 QRSD: 167 T: 4 QT: 435 QTc: 458 Interpretive Statements ATRIAL FLUTTER/TACHYCARDIA RIGHT BUNDLE BRANCH BLOCK LEFT POSTERIOR FASCICULAR BLOCK BASELINE ARTIFACT- V2 ABNORMAL ECG Electronically Signed On 12-03-2021 13:44:28 COLD TYPE COMPOSING MACHINE OPERATOR by Woo Daniels D.O.
--- NOTE | 2021-12-03 13:26 | PM.IMHP ---
H&P: HPI History of Present Illness Date/Time: 12/03/21 13:26 this is a 76-year-old male patient who has a history of coronary artery disease. The patient typically sees a home energy rater at an outside facility. The patient was at Dr. Pretty his office this morning just for routine checkup and was found to have a rapid heart rate. The patient has no prior history of atrial fibrillation. The patient stated that he did not have any shortness of breath nausea or palpitations. The patient was not even aware that this had been going on. It is unclear when this had started. He has had no chest pain. The patient does have rheumatoid arthritis so he has chronic diffuse joint pain. Chest x-ray was read as unchanged minimal atelectasis/scarring versus chronic interstitial lung disease at the right costophrenic angle. The patient was found to be in AFib with RVR. His heart rate was initially 136. The patient was started on a diltiazem drip and his heart rate came down to the 70s and 80s. His sodium levels 133. Blood sugar was 174 now is 190. Last A1c was 8.1 on 09/01/2021. Troponins are negative x2. James Vasc score 4. The patient is being admitted for observation status on the date of service of 12/03/2021. Chief Complaint: Rapid heart rate Review of Systems Review of Systems: All systems reviewed & are unremarkable except as noted in HPI and below Constitutional: Constitutional: Reports as per HPI and Reports no additional constitutional complaints Eyes: Eyes: Reports as per HPI and Reports no additional eye complaints ENT: Reports system reviewed and no additional complaints, except as documented and Reports Normal hearing present Cardiovascular: Cardiovascular: Reports no additional cardiovascular complaints Respiratory: Respiratory: Reports no additional respiratory complaints and Reports no additional respiratory complaints Gastrointestinal: Gastrointestinal: Reports as per HPI and Reports no additional gastrointestinal complaints Musculoskeletal: Musculoskeletal: Reports no additional musculoskeletal complaints Integumentary/Breasts: Skin/Breast: Reports system reviewed and no additional complaints, except as docu and Reports as per HPI Neurologic: Reports system reviewed and no additional complaints, except as documented, Reports as per HPI and Reports Normal hearing present Psychiatric: Psychiatric: Reports no additional psychiatric complaints and Reports as per HPI Endocrine: Endocrine: Reports no additional endocrine complaints Hematologic/Lymphatic: Hematologic/Lymphatic: Reports no additional hematologic/lymphatic complaints Allergic/Immunologic: Allergic/Immunologic: Reports no additional allergic/immunologic complaints [facility] Past Medical History Medical History ASHD (arteriosclerotic heart disease) Back pain with history of spinal surgery Benign prostatic hyperplasia BMI 33.0-33.9,adult BMI 35.0-35.9,adult Bruise of toe C. difficile diarrhea Changing skin lesion Chronic anemia Chronic low back pain Chronic orthostatic hypotension Chronic, continuous use of opioids Due to chronic lumbago. Claustrophobia Colon polyps Coronary artery disease With history of stent to the mid LAD in November 2015. Cardiac catheterization in May 2017 showed a patent LAD stent and 90% ostial stenosis in a 3rd diagonal, which was a small vessel and jailed by previous stent. No other high-grade lesions were noted. Reportedly, he had a stent in November 2019 done at [facility] in [place]. 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 Hemoglobin A1c was 8.3% in March 2021 Left knee pain Neck pain Non-healing skin lesion
[2021-12-03 13:51] LABS: Troponin I < 0.012 ng/mL (0.000-0.034)
--- NOTE | 2021-12-03 16:20 | ADMGEN ---
This patient, Kameron Man, was admitted to IMU Room 202-01. Patient/family oriented to hospital policies and general routines including ID bracelet, bed and alarms, visiting hours, pain management, procedures, bathroom and other care routines, personal items, smoking policy, room service/diet, and visiting hours. Information on how to activate the Rapid Response Team has been discussed. Patient/Family are encouraged to report perceived risks to care and to ask questions if they do not understand what they are told or what they should do.
[2021-12-03] MEDS: GABAPENTIN 300 MG CAPSULE 900 MG PO (18:04)
[2021-12-03] MEDS: ENOXAPARIN 120 MG/0.8 ML SYRINGE 108 MG SUB-Q (18:04)
[2021-12-03] MEDS: PRIMIDONE 50 MG TABLET PO (18:05)
[2021-12-03 18:24] LABS: Troponin I < 0.012 ng/mL (0.000-0.034)
[2021-12-03] MEDS: GLIMEPIRIDE 1 MG TABLET PO (21:07)
[2021-12-03 21:13] LABS: Glucose Point of Care 273 mg/dl (65-105)
[2021-12-04] VITALS (18 sets, daily range): BP systolic 108–138; BP diastolic 54–80; PULSE 64–131; RESP 18–20; TEMP 36.3–36.7; O2SAT 95–99
[2021-12-04] MEDS: oxyCODONE HCL (*CRX) 10 MG TAB SR 12HR PO ×2 (03:11→23:13)
[2021-12-04 04:53] LABS: Basophils Percent Auto 0.6 % (0.2-1.2); Eosinophils Absolute Auto 0.2 K/mm3 (0-0.3); Eosinophils Percent Auto 2.9 % (0-4.4); Hemoglobin 13.3 g/dL (14.0-18.0); Immature Granulocyte Absolute 0.01 K/mm3 (0.00-0.031); Immature Granulocyte Percent A 0.2 % (0-0.5); Lymphocytes Absolute Auto 1.13 K/mm3 (0.9-3.2); Lymphocytes Percent Auto 20.8 % (18.3-44.2); Mean Corpuscular HGB Conc 33.3 g/dl (32-36); Mean Corpuscular Hemoglobin 28.2 pg (26-34); Mean Corpuscular Volume 84.9 fl (80-100); Mean Platelet Volume 9.7 fl (7.4-10.4); Monocytes Absolute Auto 0.7 K/mm3 (0.1-0.6); Monocytes Percent Auto 12.9 % (2.6-8.5); Neutrophils Absolute Auto 3.4 K/mm3 (1.3-6.7); Neutrophils Percent Auto 62.6 % (45.5-73.1); Platelet Count Result 216 k/mm3 (150-375); Red Blood Count 4.71 M/mm3 (4.6-6.20); Red Cell Distribution Width 14.6 % (11.5-14.5); White Blood Count 5.4 K/mm3 (4.5-10.0)
[2021-12-04 05:09] LABS: Lipase 50 U/L (23-300); Magnesium 2.1 mg/dL (1.6-2.3); Phosphorus 4.2 mg/dL (2.5-4.5)
[2021-12-04 05:48] LABS: Lactate Dehydrogenase 447 U/L (313-618)
--- NOTE | 2021-12-04 06:00 | ECHO_ITS ---
Patient Info Name: Kameron aMn Age: 76 years : 1945 Gender: Male Ht: 71 in Wt: 239 lbs BSA: 2.36 m2 HR: 66 bpm BP: 124 / 68 mmHg Heart Rhythm: Atrial Fibrillation Technical Quality: Fair Exam Date: 12/04/2021 7:40 AM Exam Location: [facility] Pulmonary Patient Status: Inpatient Admit Date: 12/03/2021 Staff Ordering Physician: Shagufta Serrano MD Corporate Bond Trader: Bing Andrade RDCS Attending Provider: Freedom Mcgee MD Referring Physician: Zach REA; Exam Type: CA echo dop color flow w con Study Info Indications - afib Complete two-dimensional, color flow and Doppler transthoracic echocardiogram is performed. Summary 1. Complete two-dimensional, color flow and Doppler transthoracic echocardiogram is performed. 2. Mild LV enlargement, [id number] LVH; moderate LV systolic dysfunction with segmental wall motion abnormality, anterolateral hypokinesis; ejection fraction about 40%. Indeterminate diastolic function. Mild left atrial enlargement. Normal structure of the valves, trace MR, trace TR, RVSP 34 mmHg. Left Ventricle Left ventricular chamber dimension is mildly enlarged. Left ventricular systolic function is moderately reduced, estimated at 40-45%. There is mildly increased left ventricular wall thickness. Right Ventricle Right ventricular chamber dimension is normal. Right ventricular systolic function is reduced. Linear artifact in right ventricle suggestive of catheter(s), pacemaker lead(s), or ICD lead(s). Left Atria Left atrial chamber dimension is mildly enlarged. Right Atria Right atrial chamber dimension is normal. Aortic Valve The aortic valve is normal. There is no aortic valve stenosis. Pulmonic Valve The pulmonic valve is normal. Mitral Valve The mitral valve has normal leaflets. There is trace mitral valve regurgitation. Tricuspid Valve The tricuspid valve leaflets are normal. There is trace tricuspid valve regurgitation. Pericardium/Pleural The pericardium appears normal. There is trivial pericardial effusion. Inferior Vena Cava Normal inferior vena cava with <50% collapse upon inspiration consistent with normal right atrial pressure, 10 mmHg. Aorta The aortic root size at the sinus of Valsalva is normal. Left Ventricular Outflow Tract Name Value Normal LVOT 2D LVOT Diameter 2.18 cm Pulmonic Valve Name Value Normal RVOT Doppler RVOT Peak Gradient 1 mmHg PV Doppler PV Peak Gradient 2 mmHg Mitral Valve Name Value Normal MV Doppler MV Decel [place] 451.50 cm/s2 MV PHT
--- NOTE | 2021-12-04 08:28 | PM.CNCAR ---
Assessment and Plan Assessment and plan (1) Atrial fibrillation with rapid ventricular response: Code(s): I48.91 - Unspecified atrial fibrillation Status: Acute Assessment and Plan: 76-year-old male with CAD, history of PCI/stenting (mid LAD SIMONA x1 on 12/05/2015 in the setting of angina and abnormal MPI), type 2 diabetes mellitus. Patient admitted from PCP's office with elevated heart rates, found to be in atrial fibrillation with RVR. He has not had any major symptoms related to the arrhythmia. Patient's atrial fibrillation is paroxysmal versus persistent. On telemetry, he is in atrial fibrillation and flutter with episodes of RVR, and aberrantly conducted beats. Currently heart rate is in 90s. Patient is essentially asymptomatic at present. He has history of bradycardia as documented from Cardiology notes from 2016. Possibility of underlying tachybrady syndrome cannot be ruled out. -start on low-dose metoprolol tartrate 12.5 mg p.o. b.i.d. Monitor heart rate. -based on patient's CHADSVASc score, anticoagulation is warranted for CVA prophylaxis. Will initiate on apixaban 5 mg p.o. b.i.d.. -need for rhythm control strategy to be determined as an outpatient based on clinical course, which may include DC cardioversion plus-minus EP evaluation. -check echocardiogram with Doppler -plan discussed with the patient, and he is in agreement. (2) Coronary artery disease: Qualifiers: Coronary Disease-Associated Artery/Lesion type: [place] artery [place] vs. transplanted heart: [place] heart Associated angina: without angina Qualified Code(s): I25.10 - Atherosclerotic heart disease of [place] coronary artery without angina pectoris Code(s): I25.10 - Atherosclerotic heart disease of [place] coronary artery without angina pectoris Status: Acute Assessment and Plan: Continue low-dose aspirin, statin. No ischemic symptoms at present. History of Present Illness History of Present Illness Consult date/time: 12/04/21 08:28 DATE OF CONSULT: 12/04/2021 REASON FOR CONSULT: Atrial fibrillation REQUESTING PHYSICIAN:Jenifer Pollock NP CHIEF COMPLAINT: Elevated heart rate HPI: 76-year-old male with CAD, history of PCI/stenting (mid LAD SIMONA x1 on 12/05/2015 in the setting of angina and abnormal MPI), type 2 diabetes mellitus. Patient follows up with Dr. Wild for his cardiovascular care. He was sent to [facility] on 12/03/2021 from his primary care physician's office with elevated heart rates. He was found to have elevated heart rate in his PCPs office, in 140s as per patient. Patient did not have any symptoms of palpitations, chest pain, shortness of breath, dizziness or syncope. Denies any prior history of known atrial fibrillation or flutter. At baseline, he denies any anginal chest pain, dyspnea on exertion for his lactated. Few months ago, patient states that he had a mechanical fall when he missed a step at the house. No major injuries. He denies any prior known bleeding complications from antiplatelet treatment. EKG on my personal evaluation showed atrial fibrillation with controlled ventricular response, RBBB, LAFB. On telemetry, patient has been in atrial fibrillation and flutter with episodes of RVR. Serial troponins are negative. TSH within normal limits. Chest x-ray showed unchanged minimal atelectasis/scarring versus chronic interstitial lung disease at the right costophrenic angle. Patient's previous cardiac workup includes echocardiogram performed on 12/04/2015 which reported LVEF 50% with segmental wall motion abnormality. He had MPI done on the same date which reportedly showed moderate-sized infarct of mild to moderate severity involving the apical lateral and mid apical lateral segments extending slightly into the apical inferior, mid inferior and basilar inferolateral segments; No reversible ischemia, EF 58% . He underwent cardiac catheterization on 12/05/2015 which
[2021-12-04] MEDS: GABAPENTIN 300 MG CAPSULE 900 MG PO ×3 (08:44→17:14)
[2021-12-04] MEDS: PANTOPRAZOLE 40 MG TABLET PO (08:44)
[2021-12-04] MEDS: PRIMIDONE 50 MG TABLET PO ×3 (08:44→17:16)
[2021-12-04] MEDS: ACIDOPHILUS/BULGARICUS CHEWABLE TABLET 1 TABLET PO (08:45)
[2021-12-04] MEDS: GLIMEPIRIDE 2 MG TABLET PO (08:45)
[2021-12-04] MEDS: CHOLECALCIFEROL 1,000 UNITS TABLET 2000 UNITS PO (08:46)
[2021-12-04] MEDS: ASPIRIN 81 MG ENTERIC TABLET PO (08:46)
[2021-12-04] MEDS: EMPAGLIFLOZIN 10 MG TABLET PO (08:46)
[2021-12-04] MEDS: ENOXAPARIN 120 MG/0.8 ML SYRINGE 108 MG SUB-Q (08:47)
[2021-12-04] MEDS: ATORVASTATIN 40 MG TABLET PO (08:47)
[2021-12-04 08:55] LABS: Glucose Point of Care 200 mg/dl (65-105)
[2021-12-04] MEDS: PERFLUTREN LIPID MICROSPHERES 1.5 ML VIAL DILUTED TO 10 ML TOTAL VOLUME (10:50)
[2021-12-04 11:59] LABS: Glucose Point of Care 313 mg/dl (65-105)
[2021-12-04] MEDS: INSULIN ASPART (*BKC) 100 UNITS/ML SUB-Q ×2 (12:06→21:49)
[2021-12-04] MEDS: METOPROLOL TARTRATE 12.5 MG TABLET PO ×2 (14:16→21:07)
--- NOTE | 2021-12-04 15:15 | PM.IMPN ---
Progress Note: A&P Assessment and Plan (1) Atrial fibrillation with rapid ventricular response: Code(s): I48.91 - Unspecified atrial fibrillation Status: Acute Assessment and Plan: Patient admitted from PCP's office with elevated heart rates, found to be in atrial fibrillation with RVR. On admission, patient was appropriately started on Cardizem drip. He was transitioned to p.o. metoprolol today. On telemetry heart rate in the 110- 130s. P currently patient is completely asymptomatic. He is not aware of his atrial fibrillation. He has not had any major symptoms related to the arrhythmia. Patient's atrial fibrillation is paroxysmal versus persistent. On telemetry, he is in atrial fibrillation and flutter with episodes of RVR, and aberrantly conducted beats. He has history of bradycardia as documented from Cardiology notes from 2016. Possibility of underlying tachybrady syndrome cannot be ruled out. -per Cardiology recommendation, the patient was started on low-dose metoprolol tartrate 12.5 mg p.o. b.i.d. Monitor heart rate. -based on patient's CHADSVASc score, anticoagulation is warranted for CVA prophylaxis. Agree with apixaban 5 mg p.o. b.i.d.. -follow-up echocardiogram with Doppler -plan discussed with the patient, and he is in agreement. (2) Type 2 diabetes mellitus without complication, with long-term current use of insulin: Code(s): E11.9 - Type 2 diabetes mellitus without complications; Z79.4 - MCC (current) use of insulin Status: Acute Assessment and Plan: Accu-Cheks in the 200-313 range within the last 24 hours. Continue close monitoring Accu-Cheks AC and HS with sliding scale insulin. Continue with home p.o. medication. After long-acting Lantus 20 units now than at bedtime daily. (3) Anxiety: Code(s): F41.9 - Anxiety disorder, unspecified Status: Acute Assessment and Plan: Continue with home medication (4) Diabetic neuropathy: Qualifiers: Diabetes mellitus type: type 2 Diabetes mellitus complication detail: diabetic polyneuropathy Qualified Code(s): E11.42 - Type 2 diabetes mellitus with diabetic polyneuropathy Code(s): E11.40 - Type 2 diabetes mellitus with diabetic neuropathy, unspecified Status: Acute Assessment and Plan: Continue with home medications. It looks like he is on gabapentin. (5) Hyperlipidemia: Qualifiers: Hyperlipidemia type: mixed hyperlipidemia Qualified Code(s): E78.2 - Mixed hyperlipidemia Code(s): E78.5 - Hyperlipidemia, unspecified Status: Acute Assessment and Plan: Continue with atorvastatin. (6) Essential (primary) hypertension: Code(s): I10 - Essential (primary) hypertension Status: Acute Assessment and Plan: Patient was previously on a Cardizem drip, which was turned off this morning. He has been started on low-dose metoprolol 12.5 b.i.d. currently blood pressure in the 112/60 8-130 6/73 range. Continue close monitoring. (7) Coronary artery disease: Qualifiers: Coronary Disease-Associated Artery/Lesion type: [place] artery [place] vs. transplanted heart: [place] heart Associated angina: without angina Qualified Code(s): I25.10 - Atherosclerotic heart disease of [place] coronary artery without angina pectoris Code(s): I25.10 - Atherosclerotic heart disease of [place] coronary artery without angina pectoris Status: Acute Assessment and Plan: The patient has been on atorvastatin and aspirin. Patient started on metoprolol low dose. Currently asymptomatic; he denies any chest pain. (8) Tobacco abuse: Code(s): Z72.0 - Tobacco use Status: Acute Assessment and Plan: Patient had quit but then started smoking cigars again. Patient was counseled regarding the importance of smoking cessation. Subjective Date/time seen: 12/04/21 15:15 S: Patient was seen and examined at the bedside. He denies any complai
[2021-12-04 16:52] LABS: Glucose Point of Care 193 mg/dl (65-105)
--- NOTE | 2021-12-04 17:18 | ECG_ITS ---
Measurements Intervals [place] Rate: P: MD: QRS: QRSD: T: QT: QTc: Interpretive Statements ATRIAL FLUTTER/TACHYCARDIA RIGHT BUNDLE BRANCH BLOCK LEFT POSTERIOR FASCICULAR BLOCK BASELINE ARTIFACT- I, V1 ABNORMAL ECG Electronically Signed On 12-06-2021 13:17:13 INTERNATIONAL ACCOUNT REPRESENTATIVE by Woo Daniels D.O.
[2021-12-04] MEDS: METOPROLOL TARTRATE INJ 5 MG/5 ML VIAL IV PUSH (18:08)
[2021-12-04] MEDS: APIXABAN 5 MG TABLET PO (21:08)
[2021-12-04] MEDS: GLIMEPIRIDE 1 MG TABLET PO (21:08)
[2021-12-04 21:18] LABS: Glucose Point of Care 305 mg/dl (65-105)
[2021-12-05] VITALS (8 sets, daily range): BP systolic 122–134; BP diastolic 61–75; PULSE 65–131; RESP 16–20; TEMP 36.1–36.7; O2SAT 97–98
[2021-12-05 00:05] LABS: Glucose Point of Care 193 mg/dl (65-105)
[2021-12-05 09:11] LABS: Glucose Point of Care 175 mg/dl (65-105)
--- NOTE | 2021-12-05 09:45 | PM.IMPN ---
Progress Note: A&P Assessment and Plan (1) Atrial fibrillation with rapid ventricular response: Code(s): I48.91 - Unspecified atrial fibrillation Status: Acute Assessment and Plan: Patient is currently being treated for newly diagnosed atrial fibrillation with RVR. On admission, patient was appropriately started on Cardizem drip. He was transitioned to p.o. metoprolol yesterday. He had to be given Lopressor IV once overnight. On telemetry heart rate in the 130s. Patient remains completely asymptomatic. Patient's atrial fibrillation is paroxysmal versus persistent. On telemetry, he is in atrial fibrillation and flutter with episodes of RVR, and aberrantly conducted beats,. He has history of bradycardia as documented from Cardiology notes from 2016. Possibility of underlying tachybrady syndrome cannot be ruled out. -per Cardiology recommendation, the patient was started on low-dose metoprolol tartrate 12.5 mg p.o. b.i.d. due to persistent tachycardia, we are increasing metoprolol to 25 mg p.o. b.i.d.. Appreciate Cardiology recommendations. -based on patient's CHADSVASc score, anticoagulation is warranted for CVA prophylaxis. Agree with apixaban 5 mg p.o. b.i.d.. -follow-up echocardiogram with Doppler -plan discussed with the patient, and he is in agreement. 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 Start long-acting Lantus 10 units at bedtime. Continue close monitoring Accu-Cheks AC and HS with sliding scale insulin. Continue with home p.o. medication. Af (3) Anxiety: Code(s): F41.9 - Anxiety disorder, unspecified Status: Acute Assessment and Plan: Continue with home medication (4) Diabetic neuropathy: Qualifiers: Diabetes mellitus type: type 2 Diabetes mellitus complication detail: diabetic polyneuropathy Qualified Code(s): E11.42 - Type 2 diabetes mellitus with diabetic polyneuropathy Code(s): E11.40 - Type 2 diabetes mellitus with diabetic neuropathy, unspecified Status: Acute Assessment and Plan: Continue with home medications. It looks like he is on gabapentin. (5) Hyperlipidemia: Qualifiers: Hyperlipidemia type: mixed hyperlipidemia Qualified Code(s): E78.2 - Mixed hyperlipidemia Code(s): E78.5 - Hyperlipidemia, unspecified Status: Acute Assessment and Plan: Continue with atorvastatin. (6) Essential (primary) hypertension: Code(s): I10 - Essential (primary) hypertension Status: Acute Assessment and Plan: Patient was previously on a Cardizem drip, which was turned off this morning. He has been started on low-dose metoprolol 12.5 b.i.d. currently blood pressure in the 134/61-134/75 range. Continue close monitoring during uptitration of metoprolol. (7) Coronary artery disease: Qualifiers: Coronary Disease-Associated Artery/Lesion type: [place] artery [place] vs. transplanted heart: [place] heart Associated angina: without angina Qualified Code(s): I25.10 - Atherosclerotic heart disease of [place] coronary artery without angina pectoris Code(s): I25.10 - Atherosclerotic heart disease of [place] coronary artery without angina pectoris Status: Acute Assessment and Plan: The patient has been on atorvastatin and aspirin. Patient started on metoprolol low dose; currently being uptitrated. Currently asymptomatic; he denies any chest pain. (8) Tobacco abuse: Code(s): Z72.0 - Tobacco use Status: Acute Assessment and Plan: Patient had quit but then started smoking cigars again. Patient was counseled regarding the importance of smoking cessation. Subjective Date/time seen: 12/05/21 09:45 S: Tawnya
[2021-12-05] MEDS: ACIDOPHILUS/BULGARICUS CHEWABLE TABLET 1 TABLET PO (10:08)
[2021-12-05] MEDS: APIXABAN 5 MG TABLET PO (10:08)
[2021-12-05] MEDS: GLIMEPIRIDE 2 MG TABLET PO (10:09)
[2021-12-05] MEDS: EMPAGLIFLOZIN 10 MG TABLET PO (10:09)
[2021-12-05] MEDS: PRIMIDONE 50 MG TABLET PO ×2 (10:09→12:44)
[2021-12-05] MEDS: ATORVASTATIN 40 MG TABLET PO (10:09)
[2021-12-05] MEDS: ASPIRIN 81 MG ENTERIC TABLET PO (10:09)
[2021-12-05] MEDS: PANTOPRAZOLE 40 MG TABLET PO (10:10)
[2021-12-05] MEDS: CHOLECALCIFEROL 1,000 UNITS TABLET 2000 UNITS PO (10:10)
[2021-12-05] MEDS: GABAPENTIN 300 MG CAPSULE 900 MG PO ×2 (10:10→12:44)
[2021-12-05] MEDS: METOPROLOL TARTRATE 25 MG TABLET PO (10:19)
[2021-12-05 11:07] LABS: Anion Gap 9 mmol/L (8-16); Blood Urea Nitrogen 19 mg/dL (9-20); Calcium 8.7 mg/dL (8.4-10.2); Carbon Dioxide 27 mmol/L (22-30); Chloride 95 mmol/L (98-107); Estimated CRCL calculation 64 ml/min; Estimated Glomerular Filt Rate > 60; Glucose 314 mg/dL (65-110); Magnesium 1.8 mg/dL (1.6-2.3); Potassium 4.5 mmol/L (3.4-5.0); Sodium 131 mmol/L (137-145)
--- NOTE | 2021-12-05 12:13 | PM.PNCARD ---
Progress Note: A&P Assessment and Plan (1) Atrial fibrillation with rapid ventricular response: Code(s): I48.91 - Unspecified atrial fibrillation Status: Acute Assessment and Plan: 76-year-old male with CAD, history of PCI/stenting (mid LAD SIMONA x1 on 12/05/2015 in the setting of angina and abnormal MPI), type 2 diabetes mellitus. Patient admitted from PCP's office with elevated heart rates, found to be in atrial fibrillation with RVR. He has not had any major symptoms related to the arrhythmia. Patient's atrial fibrillation is paroxysmal versus persistent. On telemetry, he is in atrial fibrillation and flutter with episodes of RVR, and aberrantly conducted beats. Currently heart rate is in 90s. Patient is essentially asymptomatic at present. He has history of bradycardia as documented from Cardiology notes from 2016. Possibility of underlying tachybrady syndrome cannot be ruled out. Increase metoprolol to 25 mg p.o. b.i.d.. Continue Eliquis -need for rhythm control strategy to be determined as an outpatient based on clinical course, which may include DC cardioversion plus-minus EP evaluation. -plan discussed with the patient, and he is in agreement. (2) Coronary artery disease: Qualifiers: Coronary Disease-Associated Artery/Lesion type: [place] artery [place] vs. transplanted heart: [place] heart Associated angina: without angina Qualified Code(s): I25.10 - Atherosclerotic heart disease of [place] coronary artery without angina pectoris Code(s): I25.10 - Atherosclerotic heart disease of [place] coronary artery without angina pectoris Status: Acute Assessment and Plan: Continue low-dose aspirin, statin. No ischemic symptoms at present. (3) Hypomagnesemia: Code(s): E83.42 - Hypomagnesemia Status: Acute Assessment and Plan: Will give 2 g IV magnesium Subjective Date/time seen: 12/05/21 12:13 Interval history: 76-year-old male with CAD, history of PCI/stenting (mid LAD SIMONA x1 on 12/05/2015 in the setting of angina and abnormal MPI), type 2 diabetes mellitus. Presented from his PCPs office with atrial fibrillation Date of service 12/05/2021: Heart rate is better controlled. No chest pain. No shortness of breath at rest. Review of Systems Review of Systems: All systems reviewed & are unremarkable except as noted in HPI and below Constitutional: Constitutional: Reports weakness Eyes: Eyes: Denies blurry vision ENT: Denies Normal hearing present Cardiovascular: Cardiovascular: Denies chest pain and Reports palpitations Respiratory: Respiratory: Denies dyspnea Gastrointestinal: Gastrointestinal: Denies abdominal pain Genitourinary: Genitourinary: Denies dysuria Musculoskeletal: Musculoskeletal: Reports arthralgias Integumentary/Breasts: Skin/Breast: Denies dry skin Neurologic: Denies headache(s) Psychiatric: Psychiatric: Denies anxiety Endocrine: Endocrine: Denies change in body appearance Hematologic/Lymphatic: Hematologic/Lymphatic: Denies easy bleeding Allergic/Immunologic: Allergic/Immunologic: Denies GI upset with certain foods Exam Narrative: PHYSICAL EXAMINATION: GENERAL: Alert, oriented, no acute distress MENTAL STATUS: affect appropriate to mood EYES: Extraocular movements intact, no pallor EARS: External ears appear normal, hearing grossly normal NOSE: Normal and patent, no discharge MOUTH: Mucous membranes moist, tongue normal NECK: Supple, no JVD CHEST: Good respiratory effort, clear to auscultation HEART: Fluctuating heart rate, irregular rhythm, distant heart sounds ABDOMEN: Soft, nontender NEUROLOGICAL: Alert, oriented, normal speech, no gross motor deficits MUSCULOSKELETAL: No major deformity, no amputation EXTREMITIES: No pedal edema, no clubbing, no cyanosis SKIN: no rash on the exposed area, no cyanosis PSYCHIATRIC: Normal mood, appropriate affect Objective Data Vital Signs Vital Signs: Vit
[2021-12-05] MEDS: INSULIN ASPART (*BKC) 100 UNITS/ML SUB-Q (12:41)
[2021-12-05] MEDS: MAGNESIUM SULF 2 GM/WATER 50ML 2 GM/50 ML BAG IVPB (12:41)
--- NOTE | 2021-12-05 12:54 | PM.DS ---
DS: Admitting Diagnosis Discharge Date 12/05/2021 Admitting Diagnosis Atrial fibrillation with rapid ventricular response. DS: Discharge Diagnosis Discharge Diagnosis (1) Atrial fibrillation with rapid ventricular response: Code(s): I48.91 - Unspecified atrial fibrillation Status: Acute Assessment and Plan: Patient is currently being treated for newly diagnosed atrial fibrillation with RVR. On admission, patient was appropriately started on Cardizem drip. He was transitioned to p.o. metoprolol yesterday. He had to be given Lopressor IV once overnight. On telemetry heart rate in the 130s. Patient remains completely asymptomatic. Patient's atrial fibrillation is paroxysmal versus persistent. On telemetry, he is in atrial fibrillation and flutter with episodes of RVR, and aberrantly conducted beats,. He has history of bradycardia as documented from Cardiology notes from 2016. Possibility of underlying tachybrady syndrome cannot be ruled out. -per Cardiology recommendation, the patient was started on low-dose metoprolol tartrate 12.5 mg p.o. b.i.d. due to persistent tachycardia, we are increasing metoprolol to 25 mg p.o. b.i.d.. Appreciate Cardiology recommendations. -based on patient's CHADSVASc score, anticoagulation is warranted for CVA prophylaxis. Agree with apixaban 5 mg p.o. b.i.d.. -follow-up echocardiogram with Doppler -plan discussed with the patient, and he is in agreement. 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 Start long-acting Lantus 10 units at bedtime. Continue close monitoring Accu-Cheks AC and HS with sliding scale insulin. Continue with home p.o. medication. Af (3) Anxiety: Code(s): F41.9 - Anxiety disorder, unspecified Status: Acute Assessment and Plan: Continue with home medication (4) Diabetic neuropathy: Qualifiers: Diabetes mellitus type: type 2 Diabetes mellitus complication detail: diabetic polyneuropathy Qualified Code(s): E11.42 - Type 2 diabetes mellitus with diabetic polyneuropathy Code(s): E11.40 - Type 2 diabetes mellitus with diabetic neuropathy, unspecified Status: Acute Assessment and Plan: Continue with home medications. It looks like he is on gabapentin. (5) Hyperlipidemia: Qualifiers: Hyperlipidemia type: mixed hyperlipidemia Qualified Code(s): E78.2 - Mixed hyperlipidemia Code(s): E78.5 - Hyperlipidemia, unspecified Status: Acute Assessment and Plan: Continue with atorvastatin. (6) Essential (primary) hypertension: Code(s): I10 - Essential (primary) hypertension Status: Acute Assessment and Plan: Patient was previously on a Cardizem drip, which was turned off this morning. He has been started on low-dose metoprolol 12.5 b.i.d. currently blood pressure in the 134/61-134/75 range. Continue close monitoring during uptitration of metoprolol. (7) Coronary artery disease: Qualifiers: Coronary Disease-Associated Artery/Lesion type: [place] artery [place] vs. transplanted heart: [place] heart Associated angina: without angina Qualified Code(s): I25.10 - Atherosclerotic heart disease of [place] coronary artery without angina pectoris Code(s): I25.10 - Atherosclerotic heart disease of [place] coronary artery without angina pectoris Status: Acute Assessment and Plan: The patient has been on atorvastatin and aspirin. Patient started on metoprolol low dose; currently being uptitrated. Currently asymptomatic; he denies any chest pain. (8) Tobacco abuse: Code(s): Z72.0 - Tobacco use Status: Acute Assessment and Plan: Patient had quit but then started smoking cigars a
[2021-12-05 17:52] LABS: Glucose Point of Care 272 mg/dl (65-105)
== END 2021-12-05 14:32 | disposition home or self-care (01) | DRG 310 ==
LOC: ANHED 15:55 → ANHIMU 15:56
PROVIDERS: Emergency Medicine; Nurse Practitioner; Admitting Provider Internal Medicine; Emergency Provider Emergency Medicine; PCP Internal Medicine; Visit Provider Internal Medicine
DX: I48.91 Unspecified atrial fibrillation (principal); I25.10 Atherosclerotic heart disease of native coronary artery without angina pectoris; E11.42 Type 2 diabetes mellitus with diabetic polyneuropathy; I10 Essential (primary) hypertension; F17.290 Nicotine dependence, other tobacco product, uncomplicated; E78.2 Mixed hyperlipidemia; F41.9 Anxiety disorder, unspecified; M06.9 Rheumatoid arthritis, unspecified; E83.42 Hypomagnesemia; Z79.4 Long term (current) use of insulin; Z79.899 Other long term (current) drug therapy; Z95.5 Presence of coronary angioplasty implant and graft; Z98.42 Cataract extraction status, left eye; Z98.41 Cataract extraction status, right eye; Z96.1 Presence of intraocular lens
CPT/HCPCS: 36415; 71046; 80048; 80053; 82728; 82948; 83605; 83615; 83690; 83735; 84100; 84443; 84484; 85025; 85610; 85730; 86140; 93005; 96372; 96374; 99285; A9270; C8929; G0378; J1650; J1815; J3475; Q9957

== ENCOUNTER 2022-02-13 10:16 | Outpatient (CLI) | payer MEDICARE, SELFPAY ==
[2022-02-13 10:55] LABS: Anion Gap 5 mmol/L (8-16); Blood Urea Nitrogen 20 mg/dL (9-20); Calcium 8.4 mg/dL (8.4-10.2); Carbon Dioxide 28 mmol/L (22-30); Chloride 101 mmol/L (98-107); Cholesterol 135 mg/dL (0-200); Estimated Glomerular Filt Rate > 60; Glucose 275 mg/dL (65-110); HDL Direct 40 mg/dL; Potassium 4.3 mmol/L (3.4-5.0); Sodium 134 mmol/L (137-145); Triglycerides 299 mg/dL (<150)
[2022-02-13 11:06] LABS: LDL Cholesterol Direct 44 mg/dL
== END 2022-02-13 10:17 | disposition home or self-care (01) ==
LOC: ANHLAB 10:20
PROVIDERS: PCP Internal Medicine; Visit Provider Internal Medicine
DX: E11.319 Type 2 diabetes mellitus with unspecified diabetic retinopathy without macular edema (principal); I48.91 Unspecified atrial fibrillation; Z79.4 Long term (current) use of insulin
CPT/HCPCS: 36415; 80048; 80061; 83735

== ENCOUNTER 2022-02-27 10:00 | Outpatient (RCR) | payer MEDICARE, SELFPAY ==
--- NOTE | 2022-02-01 13:45 | STOPEVAL ---
Thank you for referring Kameron Man to [facility] See below for results; additional Speech Therapy is not indicated. Patient and spouse are in agreement with recommendation for no further ST at this time. Referring Physician Date Attending Provider: Lizett Link Dr. Assessment Status Assessment Status Evaluation Outpatient Past Medical History Neurological History Hx Neurological Disorders No Significant History Cardiovascular History Hx Atrial Fibrillation Yes: Paroxysmal Hx Cardiac Arrhythmia Yes: BBB Hx Chest Pain Yes: in past Hx Deep Vein Thrombosis Yes: Left leg DVT from groin to ankle Hx Hypercholesterolemia Yes Hx Hypertension Yes Hx Irregular Heartbeat Yes Hx Myocardial Infarction Yes: three Hx Other Cardiac Disorders Yes: stent placement Respiratory History Hx Sleep Apnea Yes: Will not wear CPAP Gastrointestinal History Hx Gastroesophageal Reflux Disease Yes Hx Irritable Bowel Yes Hx Other Gastrointestinal Disorders Yes: c diff hx Musculoskeletal History Hx Arthritis Yes: back Hx Back Injury Yes: work related Hx Back Pain Yes Hx Orthopedic Surgery Yes: 01/02/21,spinal fusion, 3 back operations total Hematological History Hx Hematological Disorders No Significant History Endocrine History Hx Diabetes Yes: type II HEENT History Hx Sinus Problems Yes: seasonal Integumentary History Hx Skin Disorders No Significant History Reproductive History Hx Other Reproductive Disorders Yes: prostate ca Psychosocial History Hx Anxiety Yes Pain History Has Past Pain Affected Your Daily Life Yes History of Long-Term Prescription Pain Yes: hydrocodone Medication Use (Opiates) Anesthesia History Hx Anesthesia Reactions No Significant History Other History Hx Cancer Yes: prostate Hx Clostridium Difficile Yes Evaluation Information Problem Subjective Information The patient denied any issues Query Text:As Reported By Patient/ related to Speech Therapy Family including speech, swallowing, word-finding or verbal expression. corroborated this assessment. reported that she was surprised that the physician overseeing [facility] requested an outpatient Speech Therapy. reported patient was at [facility] heart
--- NOTE | 2022-02-01 15:15 | OTOPEVAL ---
OCCUPATIONAL THERAPY EVALUATION REPORT AND DISCHARGE SUMMARY 02/01/22 Patient referred to outpatient OT with dx of anoxic brain injury after he experienced cardiac arrest, requiring CPR and a lengthy hospitalization. OT evaluation completed today. Patient demonstrating intact functional UE strength and sitting balance. He is currently completing ADLs with supervision assist from his . He reports his biggest deficits are his leg strength, mobility, and functional endurance. PT at this clinic will be addressing these deficits. No further skilled OT indicated at this time. Thank you for referring Kameron Man to [facility]. Please review, sign, date and return this D/C Note TRIP. I agree with and certify that the following plan of care is medically necessary. Referring Physician Date Referring Provider: Lizett Link DO *OT Outpatient Evaluation Start: 02/01/22 14:19 Outpatient Past Medical History Neurological History Hx Neurological Disorders No Significant History Cardiovascular History Hx Atrial Fibrillation Yes: Paroxysmal Hx Cardiac Arrhythmia Yes: BBB Hx Chest Pain Yes: in past Hx Deep Vein Thrombosis Yes: Left leg DVT from groin to ankle Hx Hypercholesterolemia Yes Hx Hypertension Yes Hx Irregular Heartbeat Yes Hx Myocardial Infarction Yes: three Hx Other Cardiac Disorders Yes: stent placement Respiratory History Hx Sleep Apnea Yes: Will not wear CPAP Gastrointestinal History Hx Gastroesophageal Reflux Disease Yes Hx Irritable Bowel Yes Hx Other Gastrointestinal Disorders Yes: c diff hx Musculoskeletal History Hx Arthritis Yes: back Hx Back Injury Yes: work related Hx Back Pain Yes Hx Orthopedic Surgery Yes: 01/02/21,spinal fusion, 3 back operations total Hematological History Hx Hematological Disorders No Significant History Endocrine History Hx Diabetes Yes: type II HEENT History Hx Sinus Problems Yes: seasonal Integumentary History Hx Skin Disorders No Significant History Reproductive History Hx Other Reproductive Disorders Yes: prostate ca Psychosocial History Hx Anxiety Yes Pain History Has Past Pain Affected Your Daily Life Yes History of Long-Term Prescription Pain Yes: hydrocodone Medication Use (Opiates) Anesthesia History Hx Anesthesia Reactions No Significant History Other History Hx Cancer Yes: prostate Hx Clostridium Difficile Yes Evaluation Information Problem Diagnosis Anoxic brain injury Subjective Information Pt was admitted to [facility] Query Text:As Reported By Patient/ Hospital 12/11 where he spent a Family month in acute care following cardiac arrest. He was
--- NOTE | 2022-02-01 15:55 | PTOPEVAL ---
Thank you for referring Kameron Man to [facility].? The patient is scheduled to be seen for therapy? ____x/week for ___ weeks. Please review, sign, date and return this plan of care TRIP. I agree with and certify that the following plan of care is medically necessary. Referring Physician Date Admitting Provider: Attending Provider: Lizett Link DO Referring Provider: *PT Outpatient Evaluation Start: 02/01/22 13:36 Freq: Status: Active Protocol: Document 02/01/22 13:36 RMG (Rec: 02/01/22 14:26 RMG [id number]) Therapy Assessment Status Assessment Status Assessment Status Evaluation Outpatient Past Medical History Neurological History Hx Neurological Disorders No Significant History Cardiovascular History Hx Atrial Fibrillation Yes: Paroxysmal Hx Cardiac Arrhythmia Yes: BBB Hx Chest Pain Yes: in past Hx Deep Vein Thrombosis Yes: Left leg DVT from groin to ankle Hx Hypercholesterolemia Yes Hx Hypertension Yes Hx Irregular Heartbeat Yes Hx Myocardial Infarction Yes: three Hx Other Cardiac Disorders Yes: stent placement Respiratory History Hx Sleep Apnea Yes: Will not wear CPAP Gastrointestinal History Hx Gastroesophageal Reflux Disease Yes Hx Irritable Bowel Yes Hx Other Gastrointestinal Disorders Yes: c diff hx Musculoskeletal History Hx Arthritis Yes: back Hx Back Injury Yes: work related Hx Back Pain Yes Hx Orthopedic Surgery Yes: 01/02/21,spinal fusion, 3 back operations total Hematological History Hx Hematological Disorders No Significant History Endocrine History Hx Diabetes Yes: type II HEENT History Hx Sinus Problems Yes: seasonal Integumentary History Hx Skin Disorders No Significant History Reproductive History Hx Other Reproductive Disorders Yes: prostate ca Psychosocial History Hx Anxiety Yes Pain History Has Past Pain Affected Your Daily Life Yes History of Long-Term Prescription Pain Yes: hydrocodone Medication Use (Opiates) Anesthesia History Hx Anesthesia Reactions No Significant History Other History Hx Cancer Yes: prostate Hx Clostridium Difficile Yes Evaluation Information Diagnosis anoxic brain injury Onset 12/11/21 Subjective Information Pt was admitted to [facility] Query Text:As Reported By Patient/ Hospital 12/11, [facility] 01/14, home 01/21. Pt reports he has the most difficultly ascending stairs, he has 13
--- NOTE | 2022-02-01 15:58 | PTOPEVAL ---
PHYSICAL THERAPY INITIAL EVALUATION. Thank you for referring Kameron Man to [facility].? The patient is scheduled to be seen for therapy?2x/week for 4 weeks. Please review, sign, date and return this plan of care TRIP. I agree with and certify that the following plan of care is medically necessary. Referring Physician Date Attending Provider: Lizett Link DO *PT Outpatient Evaluation Start: 02/01/22 Evaluation Information Diagnosis anoxic brain injury Onset 12/11/21 Subjective Information Pt was admitted to [facility] Query Text:As Reported By Patient/ Hospital 12/11 for a cardiac Family procedure that was complicated and caused an anoxic brain injury. He was transfers to [place] [facility] on 01/14 and discharged to home on 01/21. Pt reports he has the most difficultly ascending stairs, he has 13 stairs to enter his home. He places both hands on one rail and pulls himself up. He reports L leg weakness due to multiple prior back surgeries the most recent being Dec. Pain Score 0: Self Report Additional Pain Score Comments Pt reports history of minor back pain but that is nothing new . Lower Extremity Range of Motion General Lower Extremity Range of Motion WFL/Left,WFL/Right Lower Extremity Muscle Strength Testing Gross Lower Extremity Strength R hip flexion 4-/5 L hip flexion 3+/5 B knee flexion 3+/5 B knee extension 4-/5 B ankle 4-/5 L hip abduction 2/5 R hip abduction 4-/5 B hip extension 3/5 Muscle Length Testing Right Prone Knee Flexor Muscle Length (deg 80 Left Prone Knee Flexor Muscle Length (deg 80 Balance Assessment Time Up Go (TUG) Timed Up and Go Test (TUG) (Seconds) 22 Assistive Devices Walker, Wheeled 5 Time Sit to Stand Time in Seconds 22 5 Time Sit to Stand Comments With use of UEs. Attempted w/o Query Text:Normative Data: If Greater UEs and Pt was unable to Than 15 Seconds, 74% Increase Risk for complete Recurrent Falls Gait Assessment Ambulation Assistive Devices Walker, Wheeled Gait Pattern Trendelenburg Gait Gait Pattern Observed Trunk Flexed Other Gait Observations Flat foot contact L>
--- NOTE | 2022-02-05 16:23 | PCPTNOTE ---
Addendum entered by Anushka Swann, DIGITAL BUSINESS ANALYST 02/05/22 16:24: Patient's called & cancelled scheduled appointment 02/06/22 due to Pt twisting ankle and having a hard time walking. He will be back to therapy on 02/12/22. Original Note: Patient's called & cancelled scheduled appointment this date due to Pt twisting ankle and having a hard time walking. He will be back to therapy on 02/12/22.
--- NOTE | 2022-02-27 10:49 | PTOPEVAL ---
PHYSICAL THERAPY PROGRESS NOTE AND DISCHARGE SUMMARY Thank you for referring Kameron Man to [facility].? The patient is to be discharged at this time. Please review, sign, date and return this plan of care TRIP. I agree with and certify that the following plan of care is medically necessary. Referring Physician Date Attending Provider: Lizett Link DO Evaluation Information Diagnosis Anoxic brain injury Onset 12/11/21 Subjective Information Pt states he feels a lot Query Text:As Reported By Patient/ better, he states he can walk Family better. He states his steps have improved. Pain Assessment Self Report Pain Assessment Bilateral Hip(s) Reported Pain Level 7 Lower Extremity Range of Motion General Lower Extremity Range of Motion WFL/Left,WFL/Right Lower Extremity Muscle Strength Testing Gross Lower Extremity Strength B hip flexion 4/5 B knee flexion 4-/5 B knee extension 4-/5 B ankle 4-/5 L hip abduction 3/5 R hip abduction 4/5 B hip extension 3/5 Time Up Go (TUG) Timed Up and Go Test (TUG) (Seconds) 13 Assistive Devices Walker, Wheeled Comments Initally: 22s with straight cane 02/27/22: 13s with straight cane 5 Time Sit to Stand Time in Seconds 18 5 Time Sit to Stand Comments initially: 22s With use of UEs Query Text:Normative Data: If Greater . Attempted w/o UEs and Pt was Than 15 Seconds, 74% Increase Risk for unable to complete Recurrent Falls 02/27/22: 18s with use of UEs, 26s without the use of UEs Gait Assessment Gait Pattern Observed Trunk Lateral Lean - Right Other Gait Observations Lack of terminal hip and knee ext 2 Minute Walk Total Distance Walked (feet) 290 2 Minute Walk Gait Speed Score (feet/sec 2.41 Number of Breaks Required 0 2 Minute Walk Test Comments Initially: 160 ft (1.33ft/sec) with FWW. Pt required seated rest break at end of testing 02/27/22: 290ft (2.41 ft/sec) with straight cane Stair Climbing Assessment Stair Climbing Assistive Devices Railings Stair Climbing Comments Ascends with use of B handrail and with a reciprocal pattern . States at home he uses a non -reciprocal pattern for safety. PT Clinical Summary Kameron Roge presents to therapy today for his progress
== END 2022-02-27 16:12 | disposition home or self-care (01) ==
LOC: ANHPT 10:00
PROVIDERS: PCP Internal Medicine; Visit Provider Physical Medicine & Rehabilitation
DX: G93.1 Anoxic brain damage, not elsewhere classified (principal); R47.01 Aphasia
CPT/HCPCS: 92523; 97110; 97112; 97140; 97161; 97165; 97530

== ENCOUNTER 2022-04-19 10:45 | Outpatient (CLI) | payer MEDICARE, SELFPAY ==
[2022-04-19 12:57] LABS: Toxigenic C. Diff NEGATIVE (NEGATIVE)
== END 2022-04-19 10:46 | disposition home or self-care (01) ==
LOC: ANHLAB 10:47
PROVIDERS: PCP Internal Medicine; Visit Provider Internal Medicine
DX: R19.7 Diarrhea, unspecified (principal)
CPT/HCPCS: 87045; 87427; 87493; 89055

== ENCOUNTER 2022-05-03 13:30 | Outpatient (CLI) | payer MEDICARE, SELFPAY ==
--- NOTE | ~2022-05-03 | XR_ITS ---
EXAMINATION: XR knee LT 3V DATE: 05/03/2022 13:52 INDICATION: Left knee pain. TECHNIQUE: 3 views of left knee were obtained. COMPARISON: None. FINDINGS: Bone alignment is normal. No fracture. There is mild tricompartmental osteoarthritis charac terized by tiny osteophytes. No joint space narrowing. There is a moderate-sized knee joint effusion. IMPRESSION: 1. Mild left knee osteoarthritis. 2. Moderate-sized left knee joint effusion. Reviewed, dictated and finalized at location B.
== END 2022-05-03 13:31 | disposition home or self-care (01) ==
PROVIDERS: PCP Internal Medicine; Visit Provider Internal Medicine
DX: M25.562 Pain in left knee (principal); M17.12 Unilateral primary osteoarthritis, left knee; M25.462 Effusion, left knee
CPT/HCPCS: 73562

== ENCOUNTER 2022-06-03 12:53 | Outpatient (CLI) | payer MEDICARE, SELFPAY ==
--- NOTE | ~2022-06-03 | MM_ITS ---
EXAMINATION: MM diagnostic mammo unilat LT HISTORY: Left breast pain TECHNIQUE: Additional 3-D tomosynthesis images of the left breast were performed and synthetic 2-D im ages were generated. Comparison right MLO view performed. CAD analysis was submitted and interpreted. COMPARISON: None BREAST PARENCHYMAL COMPOSITION: Breast composition is almost entirely fatty FINDINGS: There are no suspicious masses, calcifications or architectural distortion in either breast to suggest malignancy. There is gynecomastia. IMPRESSION: 1. No evidence for malignancy in the left breast. Gynecomastia. 2. Recommend follow-up clinical management for gynecomastia. BI-RADS Category 2: Benign finding(s). Reviewed, dictated and finalized at location A.
== END 2022-06-03 12:54 | disposition home or self-care (01) ==
LOC: ANHIMG 12:54
PROVIDERS: PCP Internal Medicine; Visit Provider Internal Medicine
DX: N62 Hypertrophy of breast (principal); N64.4 Mastodynia
CPT/HCPCS: 77065

== ENCOUNTER 2022-06-18 09:36 | Emergency (ER) | payer MEDICARE, SELFPAY ==
[2022-06-18 09:39] VITALS: BP 138/71; PULSE 72; RESP 14; TEMP 36.6; O2SAT 96
--- NOTE | 2022-06-18 10:11 | ED.EAR ---
HPI - Ear Problem General Chief complaint: Ear Stated complaint: R ear pain and blood Time Seen by Provider: 06/18/22 09:51 Source: patient Mode of arrival: ambulatory Limitations: no limitations History of Present Illness HPI Narrative: This is a 76 year old male that presents to the ER for right ear bleeding noted in the middle of the night. Reports he thought he had some wax in his ear. He tried to clean it out then his ear started bleeding. He is on Eliquis for history of DVT. Denies fever or ear pain. Related Data Home Medications Medication Instructions Recorded Confirmed cholecalciferol (vitamin D3) 50 2,000 unit PO DAILY 01/21/20 05/28/22 mcg (2,000 unit) tablet (Vitamin D3) atorvastatin 40 mg tablet 40 mg PO DAILY 12/03/21 05/28/22 clopidogrel 75 mg tablet 75 mg PO DAILY 06/06/22 omega 0-yhh-srb-fish oil 100 cap PO 06/06/22 mg-160 mg-1,000 mg capsule (Fish Oil) metoprolol succinate 25 mg 12.5 mg PO BID 06/11/22 tablet,extended release 24 hr Allergies Allergy/AdvReac Type Severity Reaction Status Date / Time fentanyl Allergy Unknown Itching Verified 06/18/22 09:48 tramadol Allergy Unknown Itching Verified 06/18/22 09:48 Review of Systems Review of Systems: CONSTITUTIONAL: Denies fever ENT: Denies otalgia. All systems reviewed & are unremarkable except as noted in HPI and below PMFSH Past Medical History Medical History (Updated 06/18/22 @ 10:33 by Leena Davidson PA-C) A-fib ASHD (arteriosclerotic heart disease) Back pain with history of spinal surgery Benign prostatic hyperplasia BMI 30.0-30.9,adult BMI 32.0-32.9,adult BMI 33.0-33.9,adult BMI 35.0-35.9,adult Bruise of toe C. difficile diarrhea Changing skin lesion Chronic anemia Chronic low back pain Chronic orthostatic hypotension Chronic, continuous use of opioids Due to chronic lumbago. Claustrophobia Colon polyps Coronary artery disease With history of stent to the mid LAD in November 2015. Cardiac catheterization in May 2017 showed a patent LAD stent and 90% ostial stenosis in a 3rd diagonal, which was a small vessel and jailed by previous stent. No other high-grade lesions were noted. Reportedly, he had a stent in November 2019 done at [facility] in [place]. 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 Hemoglobin A1c was 8.3% in March 2021 Left anterior shoulder pain Left knee pain Mastodynia of left breast Neck pain Non-healing skin lesion Obstructive sleep apnea Intolerant to CPAP On care home drug therapy Osteoarthritis Paige-rectal abscess Physical debility Pilonidal cyst Post-phlebitic syndrome Prostate CA Status post external radiation. RBBB Rheumatoid arthritis Rupture of left Achilles tendon SOB (shortness of breath) Swelling of joint, knee, left Swelling of left hand Swelling of left lower extremity Tear of left rotator cuff Tobacco abuse Toe infection Toe pain, right Trauma Type 2 diabetes mellitus with diabetic polyneuropathy, 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, with long-term current use of insulin Unspecified place in other non-institutional residence as the place of occurrence of the external cause Vision changes Vitamin D deficiency Surgical History Surgical History (Updated 06/11/22 @ 11:59 by Tania Terrazas, [facility]) History of removal of pigmented skin lesion Hx of heart artery stent X3 Pacemaker placed 12/14/2021 S/P tooth extraction Status post cataract extraction of both eyes with insertion of intraocular lens Status post cholecystectomy Status post inguinal hernia repair Status post lumbar spine operati
[2022-06-18] MEDS: OXYMETAZOLINE HCL 0.05% NAS 15 ML BTL (*BKC) 1 SPRAY NASAL (10:36)
== END 2022-06-18 10:48 | disposition home or self-care (01) ==
PROVIDERS: Emergency Provider Emergency Medicine; PCP Internal Medicine
DX: H92.21 Otorrhagia, right ear (principal); I48.91 Unspecified atrial fibrillation; N40.0 Benign prostatic hyperplasia without lower urinary tract symptoms; D64.9 Anemia, unspecified; I25.10 Atherosclerotic heart disease of native coronary artery without angina pectoris; E78.5 Hyperlipidemia, unspecified; I25.2 Old myocardial infarction; G47.33 Obstructive sleep apnea (adult) (pediatric); M06.9 Rheumatoid arthritis, unspecified; E11.42 Type 2 diabetes mellitus with diabetic polyneuropathy; E11.319 Type 2 diabetes mellitus with unspecified diabetic retinopathy without macular edema; K21.9 Gastro-esophageal reflux disease without esophagitis; M19.90 Unspecified osteoarthritis, unspecified site; Z95.5 Presence of coronary angioplasty implant and graft; Z85.46 Personal history of malignant neoplasm of prostate; Z86.010 Personal history of colon polyps; Z98.42 Cataract extraction status, left eye; Z98.41 Cataract extraction status, right eye; Z96.1 Presence of intraocular lens; F17.290 Nicotine dependence, other tobacco product, uncomplicated; Z79.01 Long term (current) use of anticoagulants; Z79.899 Other long term (current) drug therapy; Z79.4 Long term (current) use of insulin
CPT/HCPCS: 99283; A9270

== ENCOUNTER 2022-06-24 09:58 | Outpatient (CLI) | payer MEDICARE, SELFPAY ==
--- NOTE | ~2022-06-24 | XR_ITS ---
XR shoulder RT min 2V DATE: 06/24/2022 10:27 INDICATION: Right shoulder pain after fall yesterday from motor scooter TECHNIQUE: 5 views COMPARISON: 12/04/2015 MRI right shoulder 12/04/2015 right shoulder. FINDINGS: No fracture or dislocation, periosteal reaction or bone destruction. Mild osteoarthritis at the right glenohumeral joint. Mild degenerative change at the right acromion c lavicular joint. Chronic small spur-like process of the superolateral aspect of the right greater tuberosity. Pacemaker leads are noted. IMPRESSION: Mild to moderate degenerative changes Reviewed, dictated and finalized at location B.
== END 2022-06-24 09:59 | disposition home or self-care (01) ==
LOC: ANHIMG 10:01
PROVIDERS: PCP Internal Medicine; Visit Provider Internal Medicine
DX: M25.511 Pain in right shoulder (principal); V00.831A Fall from motorized mobility scooter, initial encounter
CPT/HCPCS: 73030

== ENCOUNTER 2022-07-15 09:26 | Outpatient (CLI) | payer MEDICARE, SELFPAY ==
[2022-07-15 10:09] LABS: Basophils Percent Auto 0.8 % (0.2-1.2); Eosinophils Absolute Auto 0.2 K/mm3 (0-0.3); Hematocrit 39.9 % (42.0-52.0); Hemoglobin 12.5 g/dL (14.0-18.0); Immature Granulocyte Absolute 0.02 K/mm3 (0.00-0.031); Immature Granulocyte Percent A 0.4 % (0-0.5); Lymphocytes Absolute Auto 0.94 K/mm3 (0.9-3.2); Lymphocytes Percent Auto 18.6 % (18.3-44.2); Mean Corpuscular HGB Conc 31.3 g/dl (32-36); Mean Platelet Volume 9.5 fl (7.4-10.4); Monocytes Absolute Auto 0.5 K/mm3 (0.1-0.6); Monocytes Percent Auto 9.1 % (2.6-8.5); Neutrophils Absolute Auto 3.4 K/mm3 (1.3-6.7); Neutrophils Percent Auto 67.1 % (45.5-73.1); Platelet Count Result 262 k/mm3 (150-375); Red Blood Count 4.81 M/mm3 (4.6-6.20); Red Cell Distribution Width 17.1 % (11.5-14.5); White Blood Count 5.1 K/mm3 (4.5-10.0)
[2022-07-15 10:18] LABS: Alanine Aminotransferase 15 U/L (6-50); Albumin Level 4.2 g/dL (3.5-5.1); Alkaline Phosphatase 104 U/L (38-126); Anion Gap -1 mmol/L (8-16); Aspartate Amino Transferase 29 U/L (17-59); Bilirubin,Total 0.4 mg/dL (0.2-1.3); Blood Urea Nitrogen 24 mg/dL (9-20); Calcium 8.8 mg/dL (8.4-10.2); Carbon Dioxide 32 mmol/L (22-30); Chloride 101 mmol/L (98-107); Cholesterol 123 mg/dL (0-200); Estimated Glomerular Filt Rate > 60; Glucose 187 mg/dL (65-110); HDL Direct 55 mg/dL; Potassium 4.7 mmol/L (3.4-5.0); Sodium 132 mmol/L (137-145); Triglycerides 136 mg/dL (<150)
[2022-07-15 10:29] LABS: LDL Cholesterol Direct 38 mg/dL
[2022-07-15 10:49] LABS: Hemoglobin A1C 8.6 % (<5.7)
[2022-07-15 10:53] LABS: Creatinine Urine 74.6 mg/dL
[2022-07-15 11:08] LABS: Vitamin D 25 Hydroxy 54.4 ng/mL
[2022-07-15 11:55] LABS: MALB Creatinine Ratio < 8.0 mg/g (0-30); Microalbumin Urine Random < 6.0 mg/L (0-16.7)
== END 2022-07-15 09:27 | disposition home or self-care (01) ==
PROVIDERS: PCP Internal Medicine; Visit Provider Internal Medicine
DX: E78.2 Mixed hyperlipidemia (principal); Z79.899 Other long term (current) drug therapy; Z13.29 Encounter for screening for other suspected endocrine disorder; I10 Essential (primary) hypertension; E11.9 Type 2 diabetes mellitus without complications; Z79.4 Long term (current) use of insulin; E55.9 Vitamin D deficiency, unspecified
CPT/HCPCS: 36415; 80053; 80061; 82043; 82306; 83036; 84439; 84443; 85025

== ENCOUNTER 2022-09-24 15:58 | Outpatient (CLI) | payer MEDICARE, SELFPAY ==
[2022-09-24 17:11] LABS: Anion Gap 12 mmol/L (8-16); Blood Urea Nitrogen 24 mg/dL (9-20); CRP 0.8 mg/dL (<1.0); Calcium 8.3 mg/dL (8.4-10.2); Carbon Dioxide 25 mmol/L (22-30); Chloride 99 mmol/L (98-107); Estimated Glomerular Filt Rate 42; Glucose 325 mg/dL (65-110); Potassium 4.2 mmol/L (3.4-5.0); Sodium 136 mmol/L (137-145)
[2022-09-24 17:24] LABS: Erythrocyte Sedimentation Rate 22 mm/hr (0-20)
== END 2022-09-24 15:59 | disposition home or self-care (01) ==
LOC: ANHLAB 16:01
PROVIDERS: PCP Internal Medicine; Visit Provider Internal Medicine
DX: M62.81 Muscle weakness (generalized) (principal); Z79.899 Other long term (current) drug therapy
CPT/HCPCS: 36415; 80048; 85652; 86140

== ENCOUNTER 2022-09-30 10:08 | Outpatient (CLI) | payer MEDICARE, SELFPAY ==
[2022-09-30 11:27] LABS: Anion Gap 9 mmol/L (8-16); Blood Urea Nitrogen 31 mg/dL (9-20); CRP 0.9 mg/dL (<1.0); Calcium 8.6 mg/dL (8.4-10.2); Carbon Dioxide 25 mmol/L (22-30); Chloride 102 mmol/L (98-107); Estimated Glomerular Filt Rate 59; Glucose 267 mg/dL (65-110); Potassium 4.4 mmol/L (3.4-5.0); Sodium 136 mmol/L (137-145)
[2022-09-30 12:02] LABS: Erythrocyte Sedimentation Rate 27 mm/hr (0-20)
== END 2022-09-30 10:09 | disposition home or self-care (01) ==
PROVIDERS: PCP Internal Medicine; Visit Provider Internal Medicine
DX: M62.81 Muscle weakness (generalized) (principal); Z79.899 Other long term (current) drug therapy
CPT/HCPCS: 36415; 80048; 85652; 86140

== ENCOUNTER 2022-12-03 09:55 | Outpatient (CLI) | payer MEDICARE, SELFPAY ==
[2022-12-03 10:23] LABS: Basophils Percent Auto 0.7 % (0.2-1.2); Eosinophils Absolute Auto 0.2 K/mm3 (0-0.3); Eosinophils Percent Auto 2.5 % (0-4.4); Hematocrit 39.8 % (42.0-52.0); Hemoglobin 12.3 g/dL (14.0-18.0); Immature Granulocyte Absolute 0.03 K/mm3 (0.00-0.031); Immature Granulocyte Percent A 0.5 % (0-0.5); Lymphocytes Percent Auto 16.8 % (18.3-44.2); Mean Corpuscular HGB Conc 30.9 g/dl (32-36); Mean Corpuscular Volume 80.9 fl (80-100); Mean Platelet Volume 9.7 fl (7.4-10.4); Monocytes Absolute Auto 0.6 K/mm3 (0.1-0.6); Monocytes Percent Auto 10.3 % (2.6-8.5); Neutrophils Absolute Auto 4.1 K/mm3 (1.3-6.7); Neutrophils Percent Auto 69.2 % (45.5-73.1); Platelet Count Result 261 k/mm3 (150-375); Red Blood Count 4.92 M/mm3 (4.6-6.20); Red Cell Distribution Width 18.9 % (11.5-14.5); White Blood Count 5.9 K/mm3 (4.5-10.0)
[2022-12-03 10:42] LABS: Alanine Aminotransferase 18 U/L (6-50); Albumin Level 4.3 g/dL (3.5-5.1); Alkaline Phosphatase 107 U/L (38-126); Anion Gap 5 mmol/L (8-16); Aspartate Amino Transferase 22 U/L (17-59); Bilirubin,Total 0.5 mg/dL (0.2-1.3); Blood Urea Nitrogen 30 mg/dL (9-20); Calcium 8.5 mg/dL (8.4-10.2); Carbon Dioxide 29 mmol/L (22-30); Chloride 99 mmol/L (98-107); Cholesterol 141 mg/dL (0-200); Estimated Glomerular Filt Rate 59; Glucose 190 mg/dL (65-110); HDL Direct 57 mg/dL; Potassium 4.3 mmol/L (3.4-5.0); Sodium 133 mmol/L (137-145); Triglycerides 122 mg/dL (<150)
[2022-12-03 10:55] LABS: Hemoglobin A1C 9.6 % (<5.7); LDL Cholesterol Direct 49 mg/dL
== END 2022-12-03 09:56 | disposition home or self-care (01) ==
LOC: ANHLAB 09:57
PROVIDERS: PCP Internal Medicine; Visit Provider Internal Medicine
DX: E11.9 Type 2 diabetes mellitus without complications (principal); I10 Essential (primary) hypertension; Z79.4 Long term (current) use of insulin; E78.2 Mixed hyperlipidemia; E55.9 Vitamin D deficiency, unspecified
CPT/HCPCS: 36415; 80053; 80061; 82306; 83036; 85025

== ENCOUNTER 2022-12-26 01:37 | Day surgery (SDC) | payer MEDICARE, SELFPAY ==
[2022-12-18 11:11] VITALS: BMI 35.9
--- NOTE | 2022-12-25 14:32 | PM.HPGS ---
History of Present Illness History of Present Illness Consent: Risks, benefits, and alternatives have been discussed and questions answered. Patient agrees to proceed with procedure. Chief complaint: hx colon polyps Narrative: Kameron Man is a 77 year old male was referred for colon cancer screening. Four years ago he had multiple polyps removed from the descending colon, and 1 from the transverse colon Review of Systems Review of Systems: All systems reviewed & are unremarkable except as noted in HPI and below PMFSH Past Medical History Medical History A-fib ASHD (arteriosclerotic heart disease) Back pain with history of spinal surgery Benign prostatic hyperplasia BMI 30.0-30.9,adult BMI 32.0-32.9,adult BMI 33.0-33.9,adult BMI 35.0-35.9,adult Bruise of toe C. difficile diarrhea Changing skin lesion Chronic anemia Chronic low back pain Chronic orthostatic hypotension Chronic, continuous use of opioids Due to chronic lumbago. Claustrophobia Colon cancer screening Colon polyps Coronary artery disease With history of stent to the mid LAD in November 2015. Cardiac catheterization in May 2017 showed a patent LAD stent and 90% ostial stenosis in a 3rd diagonal, which was a small vessel and jailed by previous stent. No other high-grade lesions were noted. Reportedly, he had a stent in November 2019 done at [facility] in [place]. Costochondritis Depression with anxiety Diabetes Diarrhea Dyslipidemia Essential tremor Fall GERD (gastroesophageal reflux disease) History of blood clots History of myocardial infarction Hospital discharge follow-up Hx of colonic polyps Impaired functional mobility, balance, gait, and endurance Insulin dependent type 2 diabetes mellitus With diabetic peripheral neuropathy. Hemoglobin A1c was 8.3% in March 2021 Left anterior shoulder pain Left knee pain Mastodynia of left breast Muscle weakness Neck pain Non-healing skin lesion Obstructive sleep apnea Intolerant to CPAP On medical terminologist drug therapy Osteoarthritis Paige-rectal abscess Physical debility Pilonidal cyst Post-phlebitic syndrome Prostate CA Status post external radiation. RBBB Rheumatoid arthritis Rupture of left Achilles tendon Sick sinus syndrome SOB (shortness of breath) Swelling of joint, knee, left Swelling of left hand Swelling of left lower extremity Tear of left rotator cuff Tobacco abuse Toe infection Toe pain, right Trauma Type 2 diabetes mellitus with diabetic polyneuropathy, 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, with long-term current use of insulin Unspecified place in other non-institutional residence as the place of occurrence of the external cause Vision changes Vitamin D deficiency Surgical History Surgical History History of removal of pigmented skin lesion Hx of heart artery stent X3 Pacemaker placed 12/14/2021 S/P tooth extraction Status post cataract extraction of both eyes with insertion of intraocular lens Status post cholecystectomy Status post inguinal hernia repair Status post lumbar spine operation X3 most recently December 2020 Status post tonsillectomy Status post vasectomy Family History Family History Father Asthma Family history of cardiovascular disease Mother Family history of cardiovascular disease Family history of arthritis Family history of Alzheimer's disease Family history of malignant neoplasm of kidney Other Diabetes mellitus Hypertension Social History Social History Social History: He lives in [place] with his of 55 years. They have 1 son. He quit smoking cigarettes in February of 1989. Over the last several years he started to smoke a pipe, typically 5 to 6 times per da
[2022-12-26 08:50] VITALS: BP 151/81; PULSE 60; RESP 20; TEMP 36.2; O2SAT 96
--- NOTE | 2022-12-26 08:57 | WPDANESEPPF ---
Anes - Initial Pre Proc Eval Procedure: Operation Date: 12/26/22 10:00 Proposed Procedures p Colonoscopy - Raleigh Mclean MD Date/Time: 12/26/22 08:57 Surgeon: Raleigh Mclean MD Pre Op Diagnosis: hx colon polyps Patient Data Age: 77 Gender: M Height: 1.8 m Weight: 112.2 kg Last Vital Signs Temp 36.2 C L 12/26/22 08:50 Pulse 60 12/26/22 08:50 Resp 20 12/26/22 08:50 BP 151/81 H 12/26/22 08:50 Pulse Ox 96 12/26/22 08:50 O2 Del Method Room Air 12/26/22 08:50 Allergies Allergy/AdvReac Type Severity Reaction Status Date / Time fentanyl Allergy Intermediate Itching Verified 12/26/22 08:48 tramadol Allergy Intermediate Itching Verified 12/26/22 08:48 Home Medications Medication Instructions Recorded Confirmed Type cholecalciferol (vitamin D3) 50 2,000 unit PO DAILY 01/21/20 12/18/22 History mcg (2,000 unit) tablet (Vitamin D3) clopidogrel 75 mg tablet 75 mg PO DAILY 06/06/22 12/26/22 History metoprolol succinate 25 mg 25 mg PO DAILY 06/11/22 12/26/22 History tablet,extended release 24 hr nitroglycerin 0.3 mg sublingual 0.3 mg sublingual Q5M PRN Angina 06/24/22 12/18/22 History tablet pantoprazole 40 mg tablet,delayed See Rx Instructions .Route 09/09/22 12/18/22 Rx release .COMPLEX #90 tabs empagliflozin 25 mg tablet 25 mg PO DAILY #90 tabs 09/24/22 12/26/22 Rx (Jardiance) apixaban 5 mg tablet (Eliquis) 5 mg PO Q12HR #60 tabs 10/16/22 12/26/22 Rx hydrocodone 5 mg-acetaminophen 325 1 tablet PO Q8H PRN pain #20 tabs 10/16/22 12/18/22 Rx mg tablet gabapentin 300 mg capsule See Rx Instructions .Route 10/17/22 12/18/22 Rx .COMPLEX #810 caps atorvastatin 40 mg tablet 40 mg PO DAILY #30 tabs 10/31/22 12/18/22 Rx insulin human U-100 NPH-regulr See Rx Instructions .Route 11/04/22 12/18/22 Rx 70-30 mix 100 unit/mL subcutaneous .COMPLEX #60 mL susp (Novolin 70/30 U-100 Insulin) folic acid 1 mg tablet 1 mg PO DAILY 12/10/22 12/18/22 History methotrexate sodium 2.5 mg tablet 15 mg PO WEEKLY 12/10/22 12/18/22 History omega-3 fatty acids 300 mg capsule 300 mg PO DAILY 12/18/22 12/18/22 History prednisone 5 mg tablet 5 mg PO DAILY PRN FLAREUPS 12/18/22 12/18/22 History sertraline 100 mg tablet 100 mg PO DAILY 12/18/22 12/18/22 History Patient hx anesthesia problems: none Family hx anesthesia problems: none Results Review: All pre-operative results and documents have been reviewed as part of the pre-operative evaluation. [facility] Past Medical History Medical History A-fib ASHD (arteriosclerotic heart disease) Back pain with history of spinal surgery Benign prostatic hyperplasia BMI 30.0-30.9,adult BMI 32.0-32.9,adult BMI 33.0-33.9,adult BMI 35.0-35.9,adult Bruise of toe C. difficile diarrhea Changing skin lesion Chronic anemia Chronic low back pain Chronic orthostatic hypotension Chronic, continuous use of opioids Due to chronic lumbago. Claustrophobia Colon cancer screening Colon polyps Coronary artery disease With history of stent to the mid LAD in November 2015. Cardiac catheterization in May 2017 showed a patent LAD stent and 90% ostial stenosis in a 3rd diagonal, which was a small vessel and jailed by previous stent. No other high-grade lesions were noted. Reportedly, he had a stent in November 2019 done at [facility] in [place]. Costochondritis Depression with anxiety Diabetes Diarrhea Dyslipidemia Essential tremor Fall GERD (gastroesophageal reflux disease) History of blood clots History of myocardial infarction Hospital discharge follow-up Hx of colonic polyps Impaired functional mobility, balance, gait, and endurance Insulin dependent type 2 diabetes mellitus With diabetic peripheral neuropathy. Hemoglobin A1c was 8.3% in March 2021 Left anterior shoulder pain Left knee pain Mastodynia of left breast Muscle weakness Neck pain Non-healing skin lesion Obstructive sleep apnea
[2022-12-26] MEDS: LACTATED RINGERS 1,000 ML 150 ML IV CONT (09:00)
[2022-12-26 09:08] LABS: Glucose Point of Care 197 mg/dl (65-105)
[2022-12-26 09:53] VITALS: BP 112/70; PULSE 63; RESP 12; O2SAT 96
[2022-12-26 10:02] LABS: Glucose Point of Care 186 mg/dl (65-105)
[2022-12-26 10:03] VITALS: BP 124/77; PULSE 60; RESP 17; O2SAT 98
[2022-12-26 10:13] VITALS: BP 135/82; PULSE 60; RESP 15; O2SAT 100
== END 2022-12-26 10:24 | disposition home or self-care (01) ==
PROVIDERS: PCP Internal Medicine; Visit Provider Internal Medicine Gastroenterology
PROC: 0DJD8ZZ Inspection of Lower Intestinal Tract, Via Natural or Artificial Opening Endoscopic (ICD-10-PCS; CPT 45378; principal; 2022-12-26 10:00)
DX: Z12.11 Encounter for screening for malignant neoplasm of colon (principal); K64.8 Other hemorrhoids; K62.89 Other specified diseases of anus and rectum; D12.5 Benign neoplasm of sigmoid colon; D12.4 Benign neoplasm of descending colon; K63.5 Polyp of colon; K57.30 Diverticulosis of large intestine without perforation or abscess without bleeding; I48.91 Unspecified atrial fibrillation; I25.10 Atherosclerotic heart disease of native coronary artery without angina pectoris; N40.0 Benign prostatic hyperplasia without lower urinary tract symptoms; M54.50 Low back pain, unspecified; G89.29 Other chronic pain; F41.8 Other specified anxiety disorders; E78.5 Hyperlipidemia, unspecified; K21.9 Gastro-esophageal reflux disease without esophagitis; I25.2 Old myocardial infarction; E11.42 Type 2 diabetes mellitus with diabetic polyneuropathy; G47.33 Obstructive sleep apnea (adult) (pediatric); M06.9 Rheumatoid arthritis, unspecified; E11.319 Type 2 diabetes mellitus with unspecified diabetic retinopathy without macular edema; E55.9 Vitamin D deficiency, unspecified; Z79.02 Long term (current) use of antithrombotics/antiplatelets; Z79.84 Long term (current) use of oral hypoglycemic drugs; Z79.891 Long term (current) use of opiate analgesic; Z79.4 Long term (current) use of insulin; Z95.5 Presence of coronary angioplasty implant and graft; Z85.46 Personal history of malignant neoplasm of prostate; Z95.0 Presence of cardiac pacemaker; F17.290 Nicotine dependence, other tobacco product, uncomplicated; E66.9 Obesity, unspecified; Z68.34 Body mass index [BMI] 34.0-34.9, adult
CPT/HCPCS: 45380; 45385; 82948; 88305; J2704; J7120

== ENCOUNTER 2023-01-15 11:30 | Outpatient (CLI) | payer MEDICARE, SELFPAY ==
--- NOTE | ~2023-01-15 | CT_ITS ---
Non-contrast Head CT History: Head injury COMPARISON: 03/25/2018 Technique: Axial non-contrast imaging of the brain was performed. Dose reduction technique was used on this scan by utilizing automated exposure control and iterative reconstruction technique. The dose -length product (DLP) was 605.33 mGy-cm. Findings: There is no evidence of intracranial hemorrhage, mass lesion, or acute infarct. Brain par enchyma appears normal. The ventricles and subarachnoid spaces are normal in size. The calvarium ap pears normal. The visualized paranasal sinuses and mastoid air cells are clear. Impression: No significant abnormality seen. Reviewed, dictated and finalized at [facility]. 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
== END 2023-01-15 11:31 | disposition home or self-care (01) ==
PROVIDERS: PCP Internal Medicine; Visit Provider Internal Medicine
DX: S09.90XA Unspecified injury of head, initial encounter (principal); X58.XXXA Exposure to other specified factors, initial encounter
CPT/HCPCS: 70450

== ENCOUNTER 2023-01-29 12:49 | Outpatient (CLI) | payer MEDICARE, SELFPAY ==
--- NOTE | ~2023-01-29 | US_ITS ---
EXAMINATION: US venous doppler LE LT DATE: 01/29/2023 13:56 INDICATION: Left lower limb pain TECHNIQUE: Grayscale ultrasound images without and with compression and Doppler ultrasound images of the left lower extremity veins were obtained. COMPARISON: None. FINDINGS: Again seen is some nonocclusive noncompressible thrombus within the proximal to mid left femoral vein with smooth linear echogenic margins consistent with chronic thrombus. The visualized portions of le ft common femoral vein, profunda (deep) femoral vein, popliteal vein, peroneal veins, posterior tibia l veins, gastrocnemius vein and greater saphenous vein outflow are patent. IMPRESSION: 1. No significant interval change in now chronic nonocclusive deep venous thrombosis at the proximal to mid left femoral vein. No new acute deep venous thrombosis. Reviewed, dictated and finalized at location B. IMPRESSION: 1. No significant interval change in now chronic nonocclusive deep venous thro mbosis at the proximal to mid left femoral vein. No new acute deep venous throm bosis.
== END 2023-01-29 12:50 | disposition home or self-care (01) ==
PROVIDERS: PCP Internal Medicine; Visit Provider Internal Medicine
DX: M79.605 Pain in left leg (principal)
CPT/HCPCS: 93971

== ENCOUNTER 2023-02-11 10:30 | Outpatient (RCR) | payer MEDICARE, SELFPAY ==
[2022-11-21 09:35] VITALS: BMI 35.4
[2022-11-21 10:32] VITALS: BMI 35.4
== END 2023-02-17 23:59 | disposition home or self-care (01) ==
LOC: ANHDMC 10:30
PROVIDERS: PCP Internal Medicine; Visit Provider Internal Medicine
DX: E11.9 Type 2 diabetes mellitus without complications (principal); Z79.4 Long term (current) use of insulin; Z71.89 Other specified counseling; Z71.3 Dietary counseling and surveillance
CPT/HCPCS: 97802; G0108

== ENCOUNTER 2023-03-11 10:24 | Outpatient (RCR) | payer MEDICARE, SELFPAY | END 2023-06-02 08:48 | disposition home or self-care (01) | LOC: ANHDMC 10:24 | PROVIDERS: PCP Internal Medicine; Visit Provider Internal Medicine | DX: E11.9 Type 2 diabetes mellitus without complications (principal); R53.83 Other fatigue; Z79.4 Long term (current) use of insulin; Z71.89 Other specified counseling | CPT/HCPCS: G0108 ==

== ENCOUNTER 2023-04-07 15:49 | Outpatient (CLI) | payer MEDICARE, SELFPAY ==
--- NOTE | ~2023-04-07 | XR_ITS ---
[id number] 04/07/2023 16:42 Indication: Right foot pain Procedure: 3 views right foot Comparison: No prior studies for comparison. Findings: Osteopenia. There are degenerative calcaneal enthesophytes. There is mild-moderate polyarti cular osteoarthritis. No foreign bodies. No acute fracture or traumatic malalignment. Impression: 1: No acute bone or joint abnormality. 2: Mild/moderate polyarticular osteoarthritis. Reviewed, dictated and finalized at location L. Impression: 1: No acute bone or joint abnormality. 2: Mild/moderate polyarticular osteoarthritis.
--- NOTE | ~2023-04-07 | XR_ITS ---
EXAM: XR ankle RT min 3V DATE: 04/07/2023 16:42 HISTORY: M25.571 - Pain in right ankle and joints of right foot . COMPARISON: None available. FINDINGS: Normal mineralization. No fracture or dislocation. No lytic or blastic lesion. Moderate ti biotalar and midfoot degenerative change. Achilles and plantar enthesopathy. No erosion or periosteal change. Vascular calcifications. IMPRESSION: Polyarticular osteoarthritis. No acute osseous finding. Reviewed, dictated and finalized at location K.
== END 2023-04-07 15:50 | disposition home or self-care (01) ==
LOC: ANHIMG 15:51
PROVIDERS: PCP Internal Medicine; Visit Provider Internal Medicine
DX: M19.071 Primary osteoarthritis, right ankle and foot (principal)
CPT/HCPCS: 73610; 73630

== ENCOUNTER 2023-04-09 09:58 | Outpatient (CLI) | payer MEDICARE, SELFPAY ==
[2023-04-09 10:41] LABS: Basophils Percent Auto 0.4 % (0.2-1.2); Eosinophils Percent Auto 0.5 % (0-4.4); Hematocrit 38.5 % (42.0-52.0); Immature Granulocyte Absolute 0.05 K/mm3 (0.00-0.031); Immature Granulocyte Percent A 0.6 % (0-0.5); Lymphocytes Absolute Auto 0.96 K/mm3 (0.9-3.2); Lymphocytes Percent Auto 12.2 % (18.3-44.2); Mean Corpuscular HGB Conc 31.2 g/dl (32-36); Mean Corpuscular Hemoglobin 24.3 pg (26-34); Mean Corpuscular Volume 78.1 fl (80-100); Mean Platelet Volume 9.6 fl (7.4-10.4); Monocytes Absolute Auto 0.8 K/mm3 (0.1-0.6); Monocytes Percent Auto 9.7 % (2.6-8.5); Neutrophils Percent Auto 76.6 % (45.5-73.1); Platelet Count Result 335 k/mm3 (150-375); Red Blood Count 4.93 M/mm3 (4.6-6.20); Red Cell Distribution Width 18.3 % (11.5-14.5); White Blood Count 7.9 K/mm3 (4.5-10.0)
[2023-04-09 10:53] LABS: Alanine Aminotransferase 18 U/L (6-50); Albumin Level 4.4 g/dL (3.5-5.1); Alkaline Phosphatase 107 U/L (38-126); Anion Gap 9 mmol/L (8-16); Aspartate Amino Transferase 24 U/L (17-59); Bilirubin,Total 0.9 mg/dL (0.2-1.3); Blood Urea Nitrogen 27 mg/dL (9-20); Calcium 8.9 mg/dL (8.4-10.2); Carbon Dioxide 25 mmol/L (22-30); Chloride 100 mmol/L (98-107); Cholesterol 150 mg/dL (0-200); Estimated Glomerular Filt Rate 59; Glucose 185 mg/dL (65-110); HDL Direct 57 mg/dL; Potassium 4.4 mmol/L (3.4-5.0); Sodium 134 mmol/L (137-145); Triglycerides 134 mg/dL (<150)
[2023-04-09 11:03] LABS: LDL Cholesterol Direct 58 mg/dL
[2023-04-09 11:08] LABS: Hemoglobin A1C 8.6 % (<5.7)
[2023-04-09 11:18] LABS: Free T4 Free Thyroxine 1.03 ng/mL (0.78-2.19)
== END 2023-04-09 09:59 | disposition home or self-care (01) ==
LOC: ANHLAB 10:01
PROVIDERS: PCP Internal Medicine; Visit Provider Internal Medicine
DX: Z13.29 Encounter for screening for other suspected endocrine disorder (principal); Z79.899 Other long term (current) drug therapy; E11.9 Type 2 diabetes mellitus without complications; Z79.4 Long term (current) use of insulin; I10 Essential (primary) hypertension; E78.2 Mixed hyperlipidemia
CPT/HCPCS: 36415; 80053; 80061; 83036; 84439; 84443; 85025

== ENCOUNTER 2023-08-18 11:37 | Emergency (ER) | payer MEDICARE, SELFPAY ==
--- NOTE | ~2023-08-18 | XR_ITS ---
EXAMINATION: XR hip LT 2V w AP pelvis, XR sacrum coccyx min 2V DATE: 08/18/2023 15:29 INDICATION: Left hip pain post fall TECHNIQUE: 1. Anteroposterior view of the pelvis and anteroposterior and frog-leg lateral views of the left hip were obtained. 2. AP, angled AP and lateral views of the sacrum and coccyx were obtained. COMPARISON: Radiographs dated 02/24/[address] dated 01/12/2020 FINDINGS: Bone alignment is normal. No fracture. L3-L5 instrumented anterior and posterior spinal fusion with i nterbody bone graft cages and bilateral vertical tre and pedicle screw fixations. Surgical clips like ly related to prior prostatectomy projecting over the pubic bodies. Mild bilateral hip and sacroiliac osteoarthritis. IMPRESSION: 1. No acute osseous abnormality. 2. Combined instrumented L3-L5 anterior and posterior spinal fusion. Reviewed, dictated and finalized at location A. IMPRESSION: 1. No acute osseous abnormality. 2. Combined instrumented L3-L5 anterior and posterior spinal fusion.
--- NOTE | ~2023-08-18 | CT_ITS ---
EXAMINATION: CT cervical spine wo con DATE: 08/18/2023 13:46 INDICATION: Head injury post fall TECHNIQUE: Computed tomography (CT) of the cervical spine was performed without intravenous contrast. Automated exposure control and iterative reconstruction technique were employed. The dose-length pro duct was 589.99 mGy-cm. COMPARISON: Cervical spine radiographs dated 11/24/[address] dated 03/25/2018 FINDINGS: Alignment is normal. Vertebral body heights are normal. No fracture. Mild disc height loss with moder ate right-sided uncovertebral osteoarthritis at C3-C4 and moderate left-sided uncovertebral osteoarth ritis at C4-C5. Mild osteoarthritis the remaining cervical uncovertebral joints. Moderate facet osteo arthritis bilaterally at C7-T1 and on the right at C2-C3 through C4-C5. Mild facet osteoarthritis the remaining cervical levels. Mild disc bulges at C2-C3 and C3-C4 and left-sided predominant posterior disc osteophyte complex at C4-C5 each resulting in mild central canal stenosis. There is mild neural foraminal stenosis on the right at C3-C4, left at C4-C5 and bilaterally at at C7-T1. Heterotopic ossi fication along the nuchal ligament. Bilateral apices of lungs are clear. Atherosclerotic calcificatio ns at the bilateral carotid bulbs, mild on the right and minimal on the left. Cervical soft tissues a re otherwise unremarkable. IMPRESSION: 1. Mild cervical spondylosis. No acute osseous abnormality. Reviewed, dictated and finalized at location A.
--- NOTE | ~2023-08-18 | CT_ITS ---
EXAMINATION: CT brain wo con DATE: 08/18/2023 13:44 INDICATION: Nausea post fall with head injury TECHNIQUE: Computed tomography (CT) of the head was performed without intravenous contrast. Sagittal and coronal reconstructions were performed. The mA was adjusted according to patient size. Iterative reconstruction technique was employed. The dose-length product was 605.33 mGy-cm. COMPARISON: head CT dated 01/15/2023 FINDINGS: No fracture. No acute intracranial hemorrhage, acute infarction or abnormal extra axial fluid collect ion. There is mild scattered white matter hypoattenuation consistent with chronic small vessel ischem ic disease. Ventricles are normal and symmetric. No mass/mass effect. Changes of bilateral intraocul ar lens replacement. The orbits, paranasal sinuses and mastoid air cells are normal. Intracranial cornelio cified cerebral atherosclerosis is noted. IMPRESSION: 1. No fracture or acute intracranial process. 2. Mild scattered white matter hypoattenuation consistent with chronic small vessel ischemic disease. Reviewed, dictated and finalized at location A. IMPRESSION: 1. No fracture or acute intracranial process. 2. Mild scattered white matter hypoattenuation consistent with chronic small ve ssel ischemic disease.
[2023-08-18 11:59] VITALS: BP 87/57; PULSE 92; RESP 20; TEMP 36.2; O2SAT 98
--- NOTE | 2023-08-18 12:20 | ECG_ITS ---
Measurements Intervals [place] Rate: 93 P: -35 MI: 120 QRS: 267 QRSD: 174 T: 56 QT: 408 QTc: 509 Interpretive Statements SINUS RHYTHM WITH OCCASIONAL SUPRAVENTRICULAR PREMATURE COMPLEXES RIGHT AXIS DEVIATION [QRS AXIS > 100] RIGHT BUNDLE BRANCH BLOCK [120+ ms QRS DURATION, UPRIGHT V1, 40+ ms S IN I/aVL/V4/V5/V6] COMPARED TO ECG 12/03/2021 13:37:35 SINUS RHYTHM NOW PRESENT Electronically Signed On 08-19-2023 15:45:43 CDT by Corinna Corona M.D.
[2023-08-18 12:52] VITALS: BP 110/71; PULSE 88; RESP 16; O2SAT 99
--- NOTE | 2023-08-18 15:19 | ED.FALL ---
HPI - Fall General Chief Complaint: Fall Stated Complaint: fall with back pain Time Seen by Provider: 08/18/23 13:48 Source: patient, RN notes reviewed and old records reviewed Mode of arrival: ambulatory Limitations: no limitations History of Present Illness HPI Narrative: This is a 78 year old male who presents for evaluation of fall. He states that he slipped getting out of the shower, and this caused him to hit his head on the wall. He denies LOC. He does report he also hit his talk bone when he fell. He reports left buttock pain from his fall. He denies back pain or neck pain. He does take anticoagulation. He denies dizziness, lightheadness, chest pain or shortness of breath. Related Data Home Medications Medication Instructions Recorded Confirmed cholecalciferol (vitamin D3) 50 2,000 unit PO DAILY 01/21/20 08/04/23 mcg (2,000 unit) tablet (Vitamin D3) clopidogrel 75 mg tablet 75 mg PO DAILY 06/06/22 08/04/23 nitroglycerin 0.3 mg sublingual 0.3 mg sublingual Q5M PRN Angina 06/24/22 08/04/23 tablet omega-3 fatty acids 300 mg capsule 300 mg PO DAILY 12/18/22 08/04/23 diphenhydramine HCl 25 mg tablet 25 mg PO QHS PRN 04/03/23 08/04/23 (Benadryl Allergy) lisinopril 2.5 mg tablet 2.5 mg PO DAILY 04/03/23 08/04/23 metoprolol succinate 25 mg 25 mg PO DAILY 04/03/23 08/04/23 tablet,extended release 24 hr mecobalamin (vitamin B12) 1,000 1,000 mcg PO DAILY 06/16/23 08/04/23 mcg chewable tablet Allergies Allergy/AdvReac Type Severity Reaction Status Date / Time fentanyl Allergy Intermediate Itching Verified 08/04/23 13:41 tramadol Allergy Intermediate Itching Verified 08/04/23 13:41 Review of Systems Constitutional: Constitutional: Denies weakness Cardiovascular: Cardiovascular: Denies syncope, Denies rapid heart rate, Denies irregular heart rhythm, Denies leg edema and Denies dyspnea Respiratory: Respiratory: Denies chest congestion, Denies hemoptysis, Denies excessive phlegm production and Denies dyspnea Gastrointestinal: Gastrointestinal: Denies abdominal pain, Denies hematochezia, Denies diarrhea and Denies vomiting Genitourinary: Genitourinary: Denies hematuria, Denies dysuria, Denies penile discharge and Denies testicular pain Musculoskeletal: Musculoskeletal: Reports arthralgias, Denies joint swelling, Denies loss of height and Denies muscle weakness Neurologic: Denies syncope, Denies focal weakness and Denies weakness [facility] Past Medical History Medical History A-fib ASHD (arteriosclerotic heart disease) Back pain with history of spinal surgery Benign prostatic hyperplasia BMI 35.0-35.9,adult Bruise of toe C. difficile diarrhea Changing skin lesion Chronic anemia Chronic low back pain Chronic orthostatic hypotension Chronic, continuous use of opioids Due to chronic lumbago. Claustrophobia Colon cancer screening Colon polyps Coronary artery disease With history of stent to the mid LAD in November 2015. Cardiac catheterization in May 2017 showed a patent LAD stent and 90% ostial stenosis in a 3rd diagonal, which was a small vessel and jailed by previous stent. No other high-grade lesions were noted. Reportedly, he had a stent in November 2019 done at [facility] in [place]. 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 Hemoglobin A1c was 8.3% in March 2021 Left anterior shoulder pain Left knee pain Mastodynia of left breast Muscle weakness (~11/2022) Neck pain Non-healing skin lesion Obstructive sleep apnea Intolerant to CPAP On intermediate drug therapy Osteoarthritis Paige-rec
[2023-08-18 17:26] VITALS: BP 138/75; PULSE 77; RESP 21; O2SAT 99
== END 2023-08-18 17:29 | disposition home or self-care (01) ==
PROVIDERS: Emergency Provider General Practice; PCP Internal Medicine
DX: S09.90XA Unspecified injury of head, initial encounter (principal); M54.50 Low back pain, unspecified; I48.91 Unspecified atrial fibrillation; D64.9 Anemia, unspecified; I25.10 Atherosclerotic heart disease of native coronary artery without angina pectoris; F41.9 Anxiety disorder, unspecified; F32.A Depression, unspecified; K21.9 Gastro-esophageal reflux disease without esophagitis; E11.9 Type 2 diabetes mellitus without complications; Z79.4 Long term (current) use of insulin; G47.30 Sleep apnea, unspecified; M19.90 Unspecified osteoarthritis, unspecified site; W01.0XXA Fall on same level from slipping, tripping and stumbling without subsequent striking against object, initial encounter
CPT/HCPCS: 70450; 72125; 72220; 73502; 93005; 99284

== ENCOUNTER 2023-09-03 15:59 | Outpatient (CLI) | payer MEDICARE, SELFPAY ==
--- NOTE | ~2023-09-03 | XR_ITS ---
XR chest 2V DATE: 09/03/2023 16:17 INDICATION: Cough TECHNIQUE: AP and lateral views COMPARISON: 12/03/2021 PA and lateral chest FINDINGS: Heart size is within normal range. There is a left-sided transvenous pacemaker device with leads overlying right atrium and right architectural. Mild aortic arch calcification. No hilar or mediastinal enlargement. No pulmonary infiltrate or consolidation, pleural effusion or pulmonary vascular congestion or pneumo thorax is detected. IMPRESSION: No active cardiopulmonary disease Left dual-lead pacemaker Aortic atherosclerosis Reviewed, dictated and finalized at location B.
== END 2023-09-03 16:00 | disposition home or self-care (01) ==
LOC: ANHIMG 16:03
PROVIDERS: PCP Internal Medicine; Visit Provider Internal Medicine
DX: R05.9 Cough, unspecified (principal); I70.0 Atherosclerosis of aorta; Z95.0 Presence of cardiac pacemaker
CPT/HCPCS: 71046

== ENCOUNTER 2023-10-07 12:23 | Outpatient (CLI) | payer MEDICARE, SELFPAY ==
--- NOTE | ~2023-10-07 | XR_ITS ---
EXAMINATION: XR hip LT 2V w AP pelvis INDICATION: Left hip pain TECHNIQUE: AP view the pelvis and two views of the left hip are obtained. COMPARISON: 08/18/2023 FINDINGS: Bone alignment is normal. There is no fracture. There is mild osteoarthritis of the hips. N o productive changes of bony healing are identified. There are changes of anterior and posterior fusi on in the partially visualized lower lumbar spine. Surgical clips project in the low pelvis, possibly related to prior prostatectomy. IMPRESSION: 1. Mild osteoarthritis of the hips without acute osseous abnormality. Reviewed, dictated and finalized at location F. STED LIVING ADMINISTRATOR
== END 2023-10-07 12:24 | disposition home or self-care (01) ==
PROVIDERS: PCP Internal Medicine; Visit Provider Internal Medicine
DX: M16.0 Bilateral primary osteoarthritis of hip (principal)
CPT/HCPCS: 73502

== ENCOUNTER → 2023-10-13 12:46 | Outpatient (CLI) | payer MEDICARE, SELFPAY ==
--- NOTE | ~2023-10-13 | US_ITS ---
EXAMINATION: US soft tissue pelvic DATE: 10/13/2023 13:07 INDICATION: Localized swelling, mass and lump, left lower limb. TECHNIQUE: Multiple grayscale and Doppler ultrasound images of the left pelvis were obtained. COMPARISON: None FINDINGS: There is an ill-defined hyperechoic subcutaneous mass overlying left hip with subcentimeter cystic areas. IMPRESSION: 1. Ill-defined subcutaneous mass overlying left hip, likely inflammation and hematoma. Reviewed, dictated and finalized at location A. SHING PAD MOUNTER IMPRESSION: 1. Ill-defined subcutaneous mass overlying left hip, likely inflammation and he matoma.
== END ==
PROVIDERS: PCP Internal Medicine; Visit Provider Internal Medicine
DX: R22.42 Localized swelling, mass and lump, left lower limb (principal)
CPT/HCPCS: 76857

== ENCOUNTER 2023-10-21 09:27 | Outpatient (CLI) | payer MEDICARE, SELFPAY ==
[2023-10-21 19:50] LABS: Appearance Urine Clear (Clear); Bilirubin Urine Negative (Negative); Blood Urine Negative (Negative); Color Urine Yellow (Yellow); Glucose Urine UA 3+ mg/dL (Negative); Ketones Urine Negative (Negative); Leukocyte Esterase Ur Negative LEU/UL (Negative); Nitrate Urine Negative (Negative); Protein Urine Negative (Negative); Specific Grav Ur 1.029 (1.001-1.035); Urobilinogen Urine 0.2 mg/dL (<2.0); pH Urine 5.5 (5.0-9.0)
[2023-10-21 19:53] LABS: Alanine Aminotransferase 20 U/L (6-50); Albumin Level 4.2 g/dL (3.5-5.1); Alkaline Phosphatase 104 U/L (38-126); Anion Gap 8 mmol/L (8-16); Aspartate Amino Transferase 28 U/L (17-59); Bilirubin,Total 0.6 mg/dL (0.2-1.3); Blood Urea Nitrogen 22 mg/dL (9-20); Calcium 9.2 mg/dL (8.4-10.2); Carbon Dioxide 29 mmol/L (22-30); Chloride 100 mmol/L (98-107); Cholesterol 160 mg/dL (0-200); Estimated Glomerular Filt Rate > 60; Glucose 176 mg/dL (65-110); HDL Direct 62 mg/dL; Potassium 4.6 mmol/L (3.4-5.0); Sodium 137 mmol/L (137-145); Triglycerides 182 mg/dL (<150)
[2023-10-21 19:54] LABS: Add Urine Microscopic? NO
[2023-10-21 20:05] LABS: LDL Cholesterol Direct 66 mg/dL
[2023-10-21 20:09] LABS: Free T4 Free Thyroxine 1.07 ng/mL (0.78-2.19)
[2023-10-21 20:38] LABS: Basophils Percent Auto 0.5 % (0.2-1.2); Eosinophils Absolute Auto 0.1 K/mm3 (0-0.3); Eosinophils Percent Auto 1.9 % (0-4.4); Hematocrit 41.3 % (42.0-52.0); Hemoglobin 12.5 g/dL (14.0-18.0); Immature Granulocyte Absolute 0.05 K/mm3 (0.00-0.031); Immature Granulocyte Percent A 0.8 % (0-0.5); Lymphocytes Absolute Auto 0.82 K/mm3 (0.9-3.2); Lymphocytes Percent Auto 13.9 % (18.3-44.2); Mean Corpuscular HGB Conc 30.3 g/dl (32-36); Mean Corpuscular Hemoglobin 26.3 pg (26-34); Mean Corpuscular Volume 86.8 fl (80-100); Mean Platelet Volume 10.5 fl (7.4-10.4); Monocytes Absolute Auto 0.4 K/mm3 (0.1-0.6); Monocytes Percent Auto 6.9 % (2.6-8.5); Neutrophils Absolute Auto 4.5 K/mm3 (1.3-6.7); Platelet Count Result 266 k/mm3 (150-375); Red Blood Count 4.76 M/mm3 (4.6-6.20); Red Cell Distribution Width 20.1 % (11.5-14.5); White Blood Count 5.9 K/mm3 (4.5-10.0)
[2023-10-21 22:49] LABS: Hemoglobin A1C 8.3 % (<5.7)
[2023-10-22 12:12] LABS: Iron 62 ug/dL (49-181)
[2023-10-22 12:21] LABS: Percent Iron Saturation 15 % (20-50)
== END 2023-10-21 09:28 | disposition home or self-care (01) ==
PROVIDERS: PCP Internal Medicine; Visit Provider Internal Medicine
DX: D64.9 Anemia, unspecified (principal); E55.9 Vitamin D deficiency, unspecified; E11.9 Type 2 diabetes mellitus without complications; I10 Essential (primary) hypertension; I25.10 Atherosclerotic heart disease of native coronary artery without angina pectoris; I48.91 Unspecified atrial fibrillation; Z79.899 Other long term (current) drug therapy; Z79.4 Long term (current) use of insulin
CPT/HCPCS: 36415; 80053; 80061; 81003; 82306; 82728; 83036; 83540; 83550; 84439; 84443; 85025

== ENCOUNTER → 2023-11-04 12:44 | Outpatient (CLI) | payer MEDICARE, SELFPAY ==
--- NOTE | ~2023-11-04 | CT_ITS ---
EXAMINATION: CT pelvis w con INDICATION: Other intra-abdominal and pelvic swelling TECHNIQUE: Computed tomographic images of the pelvis were obtained after the administration of 100 cc of Omnipaque 350 intravenous contrast. The dose-length product (DLP) was 807.03 mGy-cm. Automated ex posure control and iterative reconstruction technique were employed. COMPARISON: 01/12/2020; ultrasound, 10/13/2023 FINDINGS: No pelvic mass or hernia are identified. There are no pathologically enlarged pelvic lymph nodes. Changes of prostatectomy are noted. There is a healing, minimally displaced fracture of the co ccyx. Partially imaged changes of lumbar fusion are noted. No CT correlate is identified for the abno rmality detected on the comparison ultrasound. IMPRESSION: 1. No pelvic mass or hernia identified. 2. Healing, minimally displaced fracture of the coccyx. Reviewed, dictated and finalized at location L. APEUTIC DIETITIAN
== END ==
PROVIDERS: PCP Internal Medicine; Visit Provider Internal Medicine
DX: R19.09 Other intra-abdominal and pelvic swelling, mass and lump (principal); S32.2XXD Fracture of coccyx, subsequent encounter for fracture with routine healing; X58.XXXD Exposure to other specified factors, subsequent encounter
CPT/HCPCS: 72193; Q9967

== ENCOUNTER 2023-11-07 15:25 | Emergency (ER) | payer MEDICARE, SELFPAY ==
--- NOTE | ~2023-11-07 | XR_ITS ---
XR hip BI 2V w AP pelvis DATE: 11/07/2023 16:11 INDICATION: Fall 3 days ago. Hip pain on palpation. TECHNIQUE: AP pelvis. AP and lateral views of each hip. COMPARISON: 11/04/2023 CT pelvis FINDINGS: Status post lumbar laminectomy with interbody fusion at L3-4 and pedicle screws and rods in volving at least L3-L5 bilaterally. Surgical clips overlie the prostate bed. Normal alignment at the pubic symphysis and sacroiliac joints. No pelvic fracture or bone destruction is detected. Hip joint spaces are symmetric and well preserved. No fracture, dislocation, avascular necrosis or priti ne destruction of either hip is detected. IMPRESSION: No pelvic or hip fracture is detected Reviewed, dictated and finalized at location A. ON SEWER
--- NOTE | ~2023-11-07 | CT_ITS ---
EXAMINATION: CT brain wo con INDICATION: Head injury COMPARISON: 08/18/2023 TECHNIQUE: Standard unenhanced head CT. The dose-length product (DLP) was 605.33 mGy-cm. The mA was a djusted according to patient size. Iterative reconstruction technique was employed. FINDINGS: No acute intraparenchymal hemorrhage. No evidence of mass lesion. No evidence of acute infa rction. There is mild periventricular and subcortical hypodensity probably related to small vessel is chemic disease. There is mild prominence of the sulci and ventricles related to cerebral atrophy. Int racranial calcified cerebral atherosclerosis is noted. No extra-axial collections. No mass effect or midline shift. Changes in the globes are likely from ocular lens surgery. The visualized sinuses and mastoid air cells are well aerated. IMPRESSION: 1. No acute intracranial abnormality. 2. Age related findings. Reviewed, dictated and finalized at location B. ASSEMBLY WORKER
--- NOTE | ~2023-11-07 | CT_ITS ---
EXAMINATION: CT cervical spine wo con DATE: 11/07/2023 15:56 INDICATION: Head injury TECHNIQUE: Computed tomography (CT) of the cervical spine was performed without intravenous contrast. The dose-length product (DLP) was 694.12 mGy-cm. Automated exposure control and iterative reconstruc tion technique were employed. COMPARISON: 08/18/2023 FINDINGS: Bone alignment is normal. There is no fracture. There is mild loss of intervertebral disc s pace height at C4-5. The vertebral body heights are maintained. The odontoid process is intact. Small degenerative osteophytes project from the anterior endplates of multiple vertebral bodies. There is multilevel mild facet and uncovertebral joint osteoarthritis. IMPRESSION: 1. Mild cervical spondylosis without acute findings or significant interval change. Reviewed, dictated and finalized at location B. FORM SOFTWARE ENGINEER IMPRESSION: 1. Mild cervical spondylosis without acute findings or significant interval dom nge.
--- NOTE | ~2023-11-07 | XR_ITS ---
XR chest 1V portable DATE: 11/07/2023 16:11 INDICATION: Cough. Fall 3 days ago. TECHNIQUE: Portable AP views on 11/07/2023 at 1602 at 1603 hours COMPARISON: 09/03/2023 2 view chest FINDINGS: Left dual-lead pacemaker device again noted with leads in expected position. It size is wit hin normal range. Is aortic arch calcification. No pulmonary infiltrate or consolidation, pleural effusion or pulmonary vascular congestion or pneumo thorax is detected. IMPRESSION: No active cardiopulmonary disease Reviewed, dictated and finalized at location A. FEEDER
--- NOTE | ~2023-11-07 | XR_ITS ---
EXAMINATION: XR shoulder RT min 2V INDICATION: Right shoulder pain TECHNIQUE: Four views of the right shoulder are submitted. COMPARISON: 822 FINDINGS: No fracture is identified. There is moderate osteoarthritis of the glenohumeral and acromio clavicular joints. Soft tissues are unremarkable. IMPRESSION: 1. Osteoarthritis without acute osseous abnormality. Reviewed, dictated and finalized at location B. DOWN MATCHER
[2023-11-07 15:26] VITALS: BP 110/70; PULSE 89; RESP 18; TEMP 36.1; O2SAT 97
--- NOTE | 2023-11-07 15:37 | ED.HEATRA ---
HPI - Head Injury General Chief complaint: Head Injury Stated complaint: head injury Time Seen by Provider: 11/07/23 15:35 Source: patient and family Mode of arrival: ambulatory Limitations: no limitations History of Present Illness HPI Narrative: This is a 78-year-old male who presents after he sustained a fall 2 days ago. He wasstanding in the bathroom and had a coughing fit that caused him to fall backwards striking his head against the door. He landed on his right side. He is on Elliquis for DVT; last dose this morning. He lost consciousness briefly after falling. heard him fall and came into bathroom. Notes he was unconscious for a few seconds to a minute and returned to baseline. He continues to have pain at the back of his head which feels full. Questionable vision changes. Also having pain in right shoulder where he states he has a tear in something. Related Data Home Medications Medication Instructions Recorded Confirmed clopidogrel 75 mg tablet 75 mg PO DAILY 06/06/22 11/16/23 nitroglycerin 0.3 mg sublingual 0.3 mg sublingual Q5M PRN Angina 06/24/22 11/16/23 tablet omega-3 fatty acids 300 mg capsule 300 mg PO DAILY 12/18/22 11/16/23 diphenhydramine HCl 25 mg tablet 25 mg PO QHS PRN 04/03/23 11/16/23 (Benadryl Allergy) lisinopril 2.5 mg tablet 2.5 mg PO DAILY 04/03/23 11/16/23 metoprolol succinate 25 mg 25 mg PO DAILY 04/03/23 11/16/23 tablet,extended release 24 hr insulin regular hum U-500 conc 500 See Rx Instructions subcut TIDWMEAL 08/25/23 11/16/23 unit/mL(3 mL) subcut pen (Humulin R U-500 (Conc) Insulin Kwikpen) ferrous sulfate 325 mg (65 mg 325 mg PO BID 10/23/23 11/16/23 iron) tablet cholecalciferol (vitamin D3) 50 4,000 unit PO DAILY 10/30/23 11/16/23 mcg (2,000 unit) tablet (Vitamin D3) Allergies Allergy/AdvReac Type Severity Reaction Status Date / Time fentanyl Allergy Intermediate Itching Verified 11/13/23 10:25 tramadol Allergy Intermediate Itching Verified 11/13/23 10:25 PMFSH Past Medical History Medical History (Updated 11/17/23 @ 19:00 by Alyssa Rehman MD) A-fib ASHD (arteriosclerotic heart disease) Back pain with history of spinal surgery Benign prostatic hyperplasia BMI 35.0-35.9,adult Bruise of toe C. difficile diarrhea Changing skin lesion Chronic anemia Chronic low back pain Chronic orthostatic hypotension Chronic, continuous use of opioids Due to chronic lumbago. Claustrophobia Colon cancer screening Colon polyps Coronary artery disease With history of stent to the mid LAD in November 2015. Cardiac catheterization in May 2017 showed a patent LAD stent and 90% ostial stenosis in a 3rd diagonal, which was a small vessel and jailed by previous stent. No other high-grade lesions were noted. Reportedly, he had a stent in November 2019 done at [facility] in [place]. Costochondritis Cough Depression with anxiety Diarrhea DVT (deep venous thrombosis) Dyslipidemia Essential tremor Fall GERD (gastroesophageal reflux disease) Head injury History of blood clots History of myocardial infarction Hospital discharge follow-up Hx of colonic polyps Impaired functional mobility, balance, gait, and endurance Inguinal hernia Insulin dependent type 2 diabetes mellitus With diabetic peripheral neuropathy. Hemoglobin A1c was 8.3% in March 2021 Left anterior shoulder pain Left groin mass Left knee pain Mastodynia of left breast Muscle weakness (~11/2022) Neck pain Non-healing skin lesion Obstructive sleep apnea Intolerant to CPAP On terminal manager drug therapy Osteoarthritis Paige-rectal abscess Physical debility Pilonidal cyst Post-phlebitic syndrome Prostate CA Status post external radiation. RBBB Rheumatoid arthritis Rupture of left Achilles tendon Sick sinus syndrome Sinus drainage SOB (shortness of breath) Swelling of joint, knee, left Swelling of left hand Swelling of left lower extremity Tear of left rotator cuff Tinea Tobacco abuse T
[2023-11-07 19:12] LABS: Basophils Percent Auto 0.5 % (0.2-1.2); Eosinophils Absolute Auto 0.1 K/mm3 (0-0.3); Eosinophils Percent Auto 1.6 % (0-4.4); Hematocrit 40.2 % (42.0-52.0); Hemoglobin 12.6 g/dL (14.0-18.0); Immature Granulocyte Absolute 0.05 K/mm3 (0.00-0.031); Immature Granulocyte Percent A 0.8 % (0-0.5); Lymphocytes Absolute Auto 0.65 K/mm3 (0.9-3.2); Lymphocytes Percent Auto 10.2 % (18.3-44.2); Mean Corpuscular HGB Conc 31.3 g/dl (32-36); Mean Corpuscular Hemoglobin 26.8 pg (26-34); Mean Corpuscular Volume 85.4 fl (80-100); Mean Platelet Volume 9.4 fl (7.4-10.4); Monocytes Absolute Auto 0.8 K/mm3 (0.1-0.6); Monocytes Percent Auto 11.7 % (2.6-8.5); Neutrophils Absolute Auto 4.8 K/mm3 (1.3-6.7); Neutrophils Percent Auto 75.2 % (45.5-73.1); Platelet Count Result 214 k/mm3 (150-375); Red Blood Count 4.71 M/mm3 (4.6-6.20); Red Cell Distribution Width 20.7 % (11.5-14.5); White Blood Count 6.4 K/mm3 (4.5-10.0)
[2023-11-07 19:16] VITALS: BP 105/63; PULSE 74; RESP 15; O2SAT 98
[2023-11-07 19:21] LABS: Alanine Aminotransferase 18 U/L (6-50); Albumin Level 4.1 g/dL (3.5-5.1); Alkaline Phosphatase 99 U/L (38-126); Anion Gap 8 mmol/L (8-16); Aspartate Amino Transferase 24 U/L (17-59); Bilirubin,Total 0.5 mg/dL (0.2-1.3); Blood Urea Nitrogen 18 mg/dL (9-20); Carbon Dioxide 26 mmol/L (22-30); Chloride 101 mmol/L (98-107); Estimated CRCL calculation 69 ml/min; Estimated Glomerular Filt Rate > 60; Glucose 141 mg/dL (65-110); Potassium 4.2 mmol/L (3.4-5.0); Sodium 135 mmol/L (137-145)
[2023-11-07 19:34] LABS: INR 1.1; Prothrombin Time 14.6 Seconds (11.1-14.7)
[2023-11-07 19:35] LABS: Partial Thromboplastin Time 34.2 SECONDS (22.3-36.8)
[2023-11-07 19:50] LABS: Influenza A QL RT-PCR Negative (Negative); Influenza B QL RT-PCR Negative (Negative); RSV RNA, RT-PCR Negative (Negative); SARS-CoV-2 RNA PCR Negative (Negative)
[2023-11-07] MEDS: HYDROcodone/acetaminophen (*CRX) 5-325 MG TABLET 1 TAB PO (20:34)
== END 2023-11-07 20:43 | disposition home or self-care (01) ==
PROVIDERS: Emergency Provider Student in an Organized Health Care Education/Training Program; PCP Internal Medicine
DX: S09.90XA Unspecified injury of head, initial encounter (principal); Z20.822 Contact with and (suspected) exposure to COVID-19; I48.91 Unspecified atrial fibrillation; I25.10 Atherosclerotic heart disease of native coronary artery without angina pectoris; I95.1 Orthostatic hypotension; I25.2 Old myocardial infarction; E78.5 Hyperlipidemia, unspecified; E11.42 Type 2 diabetes mellitus with diabetic polyneuropathy; E11.319 Type 2 diabetes mellitus with unspecified diabetic retinopathy without macular edema; E55.9 Vitamin D deficiency, unspecified; D64.9 Anemia, unspecified; G47.33 Obstructive sleep apnea (adult) (pediatric); N40.0 Benign prostatic hyperplasia without lower urinary tract symptoms; K21.9 Gastro-esophageal reflux disease without esophagitis; M19.90 Unspecified osteoarthritis, unspecified site; F17.290 Nicotine dependence, other tobacco product, uncomplicated; Z85.46 Personal history of malignant neoplasm of prostate; Z86.718 Personal history of other venous thrombosis and embolism; Z86.010 Personal history of colon polyps; Z95.5 Presence of coronary angioplasty implant and graft; Z95.0 Presence of cardiac pacemaker; Z96.1 Presence of intraocular lens; Z98.42 Cataract extraction status, left eye; Z98.41 Cataract extraction status, right eye; Z90.49 Acquired absence of other specified parts of digestive tract; Z79.01 Long term (current) use of anticoagulants; Z79.4 Long term (current) use of insulin; W01.198A Fall on same level from slipping, tripping and stumbling with subsequent striking against other object, initial encounter
CPT/HCPCS: 36415; 70450; 71045; 72125; 73030; 73521; 80053; 85025; 85610; 85730; 87637; 99284; A9270

== ENCOUNTER 2023-12-07 11:48 | Emergency (ER) | payer MEDICARE, SELFPAY ==
--- NOTE | ~2023-12-07 | CT_ITS ---
EXAMINATION: CT abdomen pelvis w con DATE: 12/07/2023 13:07 INDICATION: Left lower quadrant abdominal pain, left groin pain. History of prior hernia. TECHNIQUE: Computed tomography (CT) of the abdomen and pelvis was performed with 100 CC Omnipaque 350 intravenous contrast. Automated exposure control and iterative reconstruction technique were employe d. Exam dose: 1550.10 mGy-cm total exam DLP. COMPARISON: 11/04/2023 CT pelvis FINDINGS: The lung bases are clear. Heart size is within normal limits. Right atrial and right ventricular pacemaker leads are noted. No pericardial or pleural effusion. Status post cholecystectomy. No bile duct or pancreatic duct dilatation. No hepatic, pancreatic, sple karen, and adrenal space-occupying mass lesion At least 2 right and 4 left renal probable cysts are noted, the largest situated on the left, exophyt ic, measuring up to approximately 2.3 cm maximal dimension with attenuation of 37 Hounsfield units; t his is almost entirely exophytic and likely a hemorrhagic or proteinaceous cyst, much less likely favian id neoplasm. No urinary tract calculus or hydroureteronephrosis.. Normal caliber of the abdominal aorta; no abdominal aortic aneurysm. No intraperitoneal or retroperit stoner or pelvic mass lesion or adenopathy or ascites is noted. There are radiopaque seeds within the prostate gland. The urinary bladder appears unremarkable. Mild colonic diverticulosis; no CT evidence of diverticulitis. No bowel obstruction, bowel wall thick ening, pneumatosis or intraperitoneal free air. No evidence of appendicitis. Very small fat-containing umbilical hernia. Status post posterior surgical fusion at L3-L5. IMPRESSION: Status post cholecystectomy Bilateral renal probable cysts; consider [address] abdomen with attention to 2.3 cm exophy tic 37 Hounsfield unit lesion of left kidney, thought most likely to be a hemorrhagic or proteinaceou s benign cyst Mild colonic diverticulosis Normal appendix Reviewed, dictated and finalized at Location A. Reviewed, dictated and finalized at location A. ICAL MEDICINE TEACHER IMPRESSION: Status post cholecystectomy Bilateral renal probable cysts; consider [address] abdomen with atte ntion to 2.3 cm exophytic 37 Hounsfield unit lesion of left kidney, thought mos t likely to be a hemorrhagic or proteinaceous benign cyst Mild colonic diverticulosis Normal appendix
[2023-12-07 11:52] VITALS: BP 91/51; PULSE 85; RESP 20; TEMP 36.7; O2SAT 96
[2023-12-07 12:16] VITALS: BP 119/65; PULSE 84; RESP 15; O2SAT 97
[2023-12-07 12:24] LABS: Basophils Percent Auto 0.4 % (0.2-1.2); Eosinophils Absolute Auto 0.1 K/mm3 (0-0.3); Eosinophils Percent Auto 0.7 % (0-4.4); Hematocrit 43.4 % (42.0-52.0); Hemoglobin 13.3 g/dL (14.0-18.0); Immature Granulocyte Absolute 0.03 K/mm3 (0.00-0.031); Immature Granulocyte Percent A 0.4 % (0-0.5); Lymphocytes Absolute Auto 0.74 K/mm3 (0.9-3.2); Lymphocytes Percent Auto 8.7 % (18.3-44.2); Mean Corpuscular HGB Conc 30.6 g/dl (32-36); Mean Corpuscular Hemoglobin 27.7 pg (26-34); Mean Corpuscular Volume 90.4 fl (80-100); Mean Platelet Volume 9.6 fl (7.4-10.4); Monocytes Absolute Auto 0.5 K/mm3 (0.1-0.6); Monocytes Percent Auto 5.4 % (2.6-8.5); Neutrophils Absolute Auto 7.2 K/mm3 (1.3-6.7); Neutrophils Percent Auto 84.4 % (45.5-73.1); Platelet Count Result 228 k/mm3 (150-375); Red Cell Distribution Width 20.3 % (11.5-14.5); White Blood Count 8.5 K/mm3 (4.5-10.0)
[2023-12-07 12:25] LABS: Appearance Urine Clear (Clear); Bilirubin Urine Negative (Negative); Blood Urine Negative (Negative); Color Urine Yellow (Yellow); Glucose Urine UA 3+ mg/dL (Negative); Ketones Urine Negative (Negative); Leukocyte Esterase Ur Negative LEU/UL (Negative); Nitrate Urine Negative (Negative); Protein Urine Negative (Negative); Specific Grav Ur 1.032 (1.001-1.035); Urobilinogen Urine 0.2 mg/dL (<2.0); pH Urine 5.5 (5.0-9.0)
[2023-12-07 12:26] LABS: Add Urine Microscopic? NO
[2023-12-07 12:34] LABS: Alanine Aminotransferase 18 U/L (6-50); Albumin Level 3.8 g/dL (3.5-5.1); Alkaline Phosphatase 101 U/L (38-126); Anion Gap 11 mmol/L (8-16); Aspartate Amino Transferase 25 U/L (17-59); Bilirubin,Total 0.9 mg/dL (0.2-1.3); Blood Urea Nitrogen 17 mg/dL (9-20); Calcium 8.8 mg/dL (8.4-10.2); Carbon Dioxide 22 mmol/L (22-30); Chloride 101 mmol/L (98-107); Estimated CRCL calculation 76 ml/min; Estimated Glomerular Filt Rate > 60; Glucose 243 mg/dL (65-110); Lipase 58 U/L (23-300); Potassium 4.3 mmol/L (3.4-5.0); Sodium 134 mmol/L (137-145)
--- NOTE | 2023-12-07 12:37 | ED.ABDPAIN ---
HPI - Abdominal Pain General Chief Complaint: Abdominal Pain Stated Complaint: L GROIN PAIN X1WK Time Seen by Provider: 12/07/23 12:06 History of Present Illness HPI narrative: Patient is a 78-year-old male with a history of DVT on Eliquis, CAD, hypertension, diabetes presenting with abdominal pain. Patient's is at bedside and helps with the history. They state that he has a history of a hernia in his left groin. He has been noticing swelling in this area as well as worsening pain especially in the last week. Reports intermittent nausea but no vomiting. No melena or hematochezia. states that he has chronic constipation that is unchanged. No dysuria or hematuria. no chest pain, shortness of breath, leg swelling. No fevers or cough. No further complaints. Related Data Home Medications Medication Instructions Recorded Confirmed clopidogrel 75 mg tablet 75 mg PO DAILY 06/06/22 11/16/23 nitroglycerin 0.3 mg sublingual 0.3 mg sublingual Q5M PRN Angina 06/24/22 11/16/23 tablet omega-3 fatty acids 300 mg capsule 300 mg PO DAILY 12/18/22 11/16/23 diphenhydramine HCl 25 mg tablet 25 mg PO QHS PRN 04/03/23 11/16/23 (Benadryl Allergy) lisinopril 2.5 mg tablet 2.5 mg PO DAILY 04/03/23 11/16/23 metoprolol succinate 25 mg 25 mg PO DAILY 04/03/23 11/16/23 tablet,extended release 24 hr insulin regular hum U-500 conc 500 See Rx Instructions subcut TIDWMEAL 08/25/23 11/16/23 unit/mL(3 mL) subcut pen (Humulin R U-500 (Conc) Insulin Kwikpen) ferrous sulfate 325 mg (65 mg 325 mg PO BID 10/23/23 11/16/23 iron) tablet cholecalciferol (vitamin D3) 50 4,000 unit PO DAILY 10/30/23 11/16/23 mcg (2,000 unit) tablet (Vitamin D3) Allergies Allergy/AdvReac Type Severity Reaction Status Date / Time fentanyl Allergy Intermediate Itching Verified 12/07/23 12:11 tramadol Allergy Intermediate Itching Verified 12/07/23 12:11 Review of Systems Review of Systems: All systems reviewed & are unremarkable except as noted in HPI and below PMFSH Past Medical History Medical History A-fib ASHD (arteriosclerotic heart disease) Back pain with history of spinal surgery Benign prostatic hyperplasia BMI 35.0-35.9,adult Bruise of toe C. difficile diarrhea Changing skin lesion Chronic anemia Chronic low back pain Chronic orthostatic hypotension Chronic, continuous use of opioids Due to chronic lumbago. Claustrophobia Colon cancer screening Colon polyps Coronary artery disease With history of stent to the mid LAD in November 2015. Cardiac catheterization in May 2017 showed a patent LAD stent and 90% ostial stenosis in a 3rd diagonal, which was a small vessel and jailed by previous stent. No other high-grade lesions were noted. Reportedly, he had a stent in November 2019 done at [facility] in [place]. Costochondritis Cough Depression with anxiety Diarrhea DVT (deep venous thrombosis) Dyslipidemia Essential tremor Fall GERD (gastroesophageal reflux disease) Head injury History of blood clots History of myocardial infarction Hospital discharge follow-up Hx of colonic polyps Impaired functional mobility, balance, gait, and endurance Inguinal hernia Insulin dependent type 2 diabetes mellitus With diabetic peripheral neuropathy. 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 RBBB Rheumatoid arthritis Rupture of left Achilles tendon Sick sinus syndrome Sinus drainage SOB (shortness of breath) Swelling of joint, knee, left Swelling of left hand Swelling of left lower extremity Tear of left rotator cuff Tinea Tobac
[2023-12-07] MEDS: SODIUM CHLORIDE 0.9% IV 1,000 ML 999 ML IV CONT (12:44)
[2023-12-07] MEDS: ONDANSETRON INJ 4 MG/2 ML VIAL IV PUSH (12:45)
[2023-12-07] MEDS: HYDROmorphone HCL INJ (*CRX) 1 MG/ML SYR 0.5 MG IV PUSH (12:47)
[2023-12-07 12:48] VITALS: BP 119/65; PULSE 78; RESP 17; O2SAT 97
--- NOTE | 2023-12-07 12:48 | PC.NURSE ---
Pt to CT scan via stretcher at this time, fluids infusing.
[2023-12-07 13:08] LABS: Lactic Acid Reflex 1.5 mmol/L (0.7-2.0)
[2023-12-07 14:37] VITALS: BP 121/71; PULSE 72; RESP 13; O2SAT 98
[2023-12-07 15:29] VITALS: BP 110/70; PULSE 78; RESP 14; O2SAT 99
== END 2023-12-07 15:38 | disposition home or self-care (01) ==
PROVIDERS: Emergency Medicine; Emergency Provider Emergency Medicine; PCP Internal Medicine
DX: R10.32 Left lower quadrant pain (principal); I25.10 Atherosclerotic heart disease of native coronary artery without angina pectoris; I10 Essential (primary) hypertension; I25.2 Old myocardial infarction; E11.319 Type 2 diabetes mellitus with unspecified diabetic retinopathy without macular edema; E11.42 Type 2 diabetes mellitus with diabetic polyneuropathy; E78.5 Hyperlipidemia, unspecified; E55.9 Vitamin D deficiency, unspecified; D64.9 Anemia, unspecified; N40.0 Benign prostatic hyperplasia without lower urinary tract symptoms; G47.33 Obstructive sleep apnea (adult) (pediatric); M19.90 Unspecified osteoarthritis, unspecified site; M06.9 Rheumatoid arthritis, unspecified; Z95.5 Presence of coronary angioplasty implant and graft; Z95.0 Presence of cardiac pacemaker; Z96.1 Presence of intraocular lens; Z98.42 Cataract extraction status, left eye; Z98.41 Cataract extraction status, right eye; Z86.718 Personal history of other venous thrombosis and embolism; Z85.46 Personal history of malignant neoplasm of prostate; Z86.010 Personal history of colon polyps; Z87.891 Personal history of nicotine dependence; Z90.49 Acquired absence of other specified parts of digestive tract; Z79.01 Long term (current) use of anticoagulants; Z79.4 Long term (current) use of insulin; R93.422 Abnormal radiologic findings on diagnostic imaging of left kidney; R93.421 Abnormal radiologic findings on diagnostic imaging of right kidney; K57.90 Diverticulosis of intestine, part unspecified, without perforation or abscess without bleeding
CPT/HCPCS: 36415; 74177; 80053; 81003; 83605; 83690; 85025; 96361; 96374; 96375; 99284; J1170; J2405; J7030; Q9967

== ENCOUNTER 2023-12-08 20:43 | Emergency (ER) | payer MEDICARE, SELFPAY ==
--- NOTE | ~2023-12-08 | CT_ITS ---
CT of the Abdomen and Pelvis: Indication: Abdominal pain Technique: 2.5 mm axial scans were obtained through the abdomen and pelvis following intravenous adm inistration of 100 cc of Omnipaque 350. Dose reduction technique was used on this scan by utilizing a utomated exposure control and iterative reconstruction technique. The dose-length product (DLP) was 1 749.56 mGy-cm. COMPARISON: 12/07/2023 Findings: Scans through the lung bases are unremarkable. The liver, spleen, pancreas, adrenals and kidneys are within normal limits. Cholecystectomy clips are present. No evidence of aortic aneurysm. No lymphadenopathy. No bowel obstruction or bowel wall thickening. There is no evidence to suggest acute appendicitis. Pr obable focal skin thickening and infiltrative change in the left lower quadrant region, which could r eflect cellulitis. Images through the pelvis were performed. Urinary bladder unremarkable. No pelvic mass evident. No as cites. Impression: Possible cellulitis at the left lower quadrant region, underlying region of pannus. Reviewed, dictated and finalized at [facility]. STERED DIETICIAN Impression: Possible cellulitis at the left lower quadrant region, underlying region of benedict nus.
[2023-12-08 20:47] VITALS: BP 134/61; PULSE 92; RESP 20; TEMP 36.4; O2SAT 95
[2023-12-08 23:18] VITALS: RESP 18
[2023-12-09] VITALS (22 sets, daily range): BP systolic 95–148; BP diastolic 66–78; PULSE 74–82; RESP 14–18; TEMP 36.9; O2SAT 90–99
[2023-12-09] MEDS: CELLULOSE OXIDIZED 2 x 3 INCH 1 PKT XX (00:30)
--- NOTE | 2023-12-09 00:40 | PC.NURSE ---
Wound covered with surgicel and pressure dressing. No longer bleeding at this time.
[2023-12-09] MEDS: MORPHINE SULFATE (*CRX) 4 MG/ML INJ 2 MG IV PUSH (01:09)
[2023-12-09 01:32] LABS: Basophils Percent Auto 0.4 % (0.2-1.2); Eosinophils Absolute Auto 0.1 K/mm3 (0-0.3); Eosinophils Percent Auto 1.2 % (0-4.4); Hematocrit 37.9 % (42.0-52.0); Immature Granulocyte Absolute 0.04 K/mm3 (0.00-0.031); Immature Granulocyte Percent A 0.5 % (0-0.5); Lymphocytes Absolute Auto 0.89 K/mm3 (0.9-3.2); Lymphocytes Percent Auto 11.5 % (18.3-44.2); Mean Corpuscular HGB Conc 31.7 g/dl (32-36); Mean Corpuscular Hemoglobin 27.8 pg (26-34); Mean Corpuscular Volume 87.9 fl (80-100); Mean Platelet Volume 9.9 fl (7.4-10.4); Monocytes Absolute Auto 0.6 K/mm3 (0.1-0.6); Monocytes Percent Auto 7.1 % (2.6-8.5); Neutrophils Absolute Auto 6.2 K/mm3 (1.3-6.7); Neutrophils Percent Auto 79.3 % (45.5-73.1); Platelet Count Result 236 k/mm3 (150-375); Red Blood Count 4.31 M/mm3 (4.6-6.20); Red Cell Distribution Width 19.6 % (11.5-14.5); White Blood Count 7.8 K/mm3 (4.5-10.0)
[2023-12-09 01:43] LABS: INR 1.1; Prothrombin Time 14.5 Seconds (11.1-14.7)
[2023-12-09 01:44] LABS: Partial Thromboplastin Time 37.5 SECONDS (22.3-36.8)
[2023-12-09 01:48] LABS: Alanine Aminotransferase 14 U/L (6-50); Albumin Level 3.6 g/dL (3.5-5.1); Alkaline Phosphatase 99 U/L (38-126); Anion Gap 6 mmol/L (8-16); Aspartate Amino Transferase 21 U/L (17-59); Bilirubin,Total 0.5 mg/dL (0.2-1.3); Blood Urea Nitrogen 17 mg/dL (9-20); Calcium 8.6 mg/dL (8.4-10.2); Carbon Dioxide 28 mmol/L (22-30); Chloride 100 mmol/L (98-107); Estimated CRCL calculation 58 ml/min; Estimated Glomerular Filt Rate 59; Glucose 198 mg/dL (65-110); Lipase 83 U/L (23-300); Magnesium 2.1 mg/dL (1.6-2.3); Sodium 134 mmol/L (137-145)
[2023-12-09 02:04] LABS: Procalcitonin 0.1 ng/mL
--- NOTE | 2023-12-09 03:57 | ED.GENADULT ---
HPI - General Adult General Chief complaint: Unspecified Stated complaint: L groin pain/bleeding Time Seen by Provider: 12/08/23 23:17 History of Present Illness HPI narrative: Patient is a 78-year-old gentleman who presents emergency department with chief complaint of left groin pain and bleeding. The patient reports that he noticed couple small holes and also notice in malodorous smell in the left groin area the patient was seen in the emergency department for left lower quadrant abdominal pain had a CT scan that was read as negative at that time. The patient denies fever does report that he is on anticoagulants. Related Data Home Medications Medication Instructions Recorded Confirmed clopidogrel 75 mg tablet 75 mg PO DAILY 06/06/22 11/16/23 nitroglycerin 0.3 mg sublingual 0.3 mg sublingual Q5M PRN Angina 06/24/22 11/16/23 tablet omega-3 fatty acids 300 mg capsule 300 mg PO DAILY 12/18/22 11/16/23 diphenhydramine HCl 25 mg tablet 25 mg PO QHS PRN 04/03/23 11/16/23 (Benadryl Allergy) lisinopril 2.5 mg tablet 2.5 mg PO DAILY 04/03/23 11/16/23 metoprolol succinate 25 mg 25 mg PO DAILY 04/03/23 11/16/23 tablet,extended release 24 hr insulin regular hum U-500 conc 500 See Rx Instructions subcut TIDWMEAL 08/25/23 11/16/23 unit/mL(3 mL) subcut pen (Humulin R U-500 (Conc) Insulin Kwikpen) ferrous sulfate 325 mg (65 mg 325 mg PO BID 10/23/23 11/16/23 iron) tablet cholecalciferol (vitamin D3) 50 4,000 unit PO DAILY 10/30/23 11/16/23 mcg (2,000 unit) tablet (Vitamin D3) Allergies Allergy/AdvReac Type Severity Reaction Status Date / Time fentanyl Allergy Intermediate Itching Verified 12/08/23 20:51 tramadol Allergy Intermediate Itching Verified 12/08/23 20:51 Review of Systems Review of Systems: A 10 system review of systems was completed on the patient and is negative except for what is stated in the HPI. Nursing and ancillary documentation was reviewed. [facility] Past Medical History Medical History A-fib ASHD (arteriosclerotic heart disease) Back pain with history of spinal surgery Benign prostatic hyperplasia BMI 35.0-35.9,adult Bruise of toe C. difficile diarrhea Changing skin lesion Chronic anemia Chronic low back pain Chronic orthostatic hypotension Chronic, continuous use of opioids Due to chronic lumbago. Claustrophobia Colon cancer screening Colon polyps Coronary artery disease With history of stent to the mid LAD in November 2015. Cardiac catheterization in May 2017 showed a patent LAD stent and 90% ostial stenosis in a 3rd diagonal, which was a small vessel and jailed by previous stent. No other high-grade lesions were noted. Reportedly, he had a stent in November 2019 done at [facility] in [place]. Costochondritis Cough Depression with anxiety Diarrhea DVT (deep venous thrombosis) Dyslipidemia Essential tremor Fall GERD (gastroesophageal reflux disease) Head injury History of blood clots History of myocardial infarction Hospital discharge follow-up Hx of colonic polyps Impaired functional mobility, balance, gait, and endurance Inguinal hernia Insulin dependent type 2 diabetes mellitus With diabetic peripheral neuropathy. Hemoglobin A1c was 8.3% in March 2021 Left anterior shoulder pain Left groin mass Left knee pain Mastodynia of left breast Muscle weakness (~11/2022) Neck pain Non-healing skin lesion Obstructive sleep apnea Intolerant to CPAP On senior care drug therapy Osteoarthritis Paige-rectal abscess Physical debility Pilonidal cyst Post-phlebitic syndrome Prostate CA Status post external radiation. RBBB Rheumatoid arthritis Rupture of left Achilles tendon Sick sinus syndrome Sinus drainage SOB (shortness of breath) Swelling of joint, knee, left Swelling of left hand Swelling of left lower extremity Tear of left rotator cuff Tinea Tobacco abuse Toe infection Toe pain, right Trauma Ty
[2023-12-09] MEDS: DOXYCYCLINE HYCLATE 100 MG TABLET PO (04:28)
== END 2023-12-09 04:42 | disposition home or self-care (01) ==
PROVIDERS: Emergency Provider Emergency Medicine; PCP Internal Medicine
DX: L03.314 Cellulitis of groin (principal); I25.10 Atherosclerotic heart disease of native coronary artery without angina pectoris; I10 Essential (primary) hypertension; I25.2 Old myocardial infarction; E11.319 Type 2 diabetes mellitus with unspecified diabetic retinopathy without macular edema; E11.42 Type 2 diabetes mellitus with diabetic polyneuropathy; E78.5 Hyperlipidemia, unspecified; E55.9 Vitamin D deficiency, unspecified; D64.9 Anemia, unspecified; N40.0 Benign prostatic hyperplasia without lower urinary tract symptoms; G47.33 Obstructive sleep apnea (adult) (pediatric); M19.90 Unspecified osteoarthritis, unspecified site; M06.9 Rheumatoid arthritis, unspecified; Z95.5 Presence of coronary angioplasty implant and graft; Z95.0 Presence of cardiac pacemaker; Z96.1 Presence of intraocular lens; Z98.42 Cataract extraction status, left eye; Z98.41 Cataract extraction status, right eye; Z86.718 Personal history of other venous thrombosis and embolism; Z85.46 Personal history of malignant neoplasm of prostate; Z86.010 Personal history of colon polyps; Z87.891 Personal history of nicotine dependence; Z90.49 Acquired absence of other specified parts of digestive tract; Z79.01 Long term (current) use of anticoagulants; Z79.4 Long term (current) use of insulin
CPT/HCPCS: 36415; 74177; 80053; 83605; 83690; 83735; 84145; 85025; 85610; 85730; 96374; 99284; A9270; J2270; Q9967

== ENCOUNTER → 2023-12-18 12:46 | Outpatient (CLI) | payer MEDICARE, SELFPAY ==
--- NOTE | ~2023-12-18 | CT_ITS ---
EXAMINATION: CT lumbar spine wo con DATE: 12/18/2023 13:07 INDICATION: Lumbar radiculopathy. TECHNIQUE: Computed tomography (CT) of the lumbar spine was performed without intravenous contrast. A utomated exposure control and iterative reconstruction technique were employed. The dose-length produ ct was 952.88 mGy-cm. COMPARISON: CT abdomen and pelvis 12/09/2023 FINDINGS: There is 8 degrees levocurvature of lumbar spine. There is 3 mm anterolisthesis of L4 on L5 . There are changes of anterior and posterior fusion procedures from L3 to L5 with interbody devices and pedicle screws. There is mild chronic anterior wedging of L1 vertebral body. There is moderately decreased disc height at L5-S1. There is a healing transverse fracture of the sacrum at S4. The follo wing disc levels are specifically discussed: L1-L2: The disc does not extend beyond the endplate margin. There is mild bilateral facet joint osteo arthritis. There is no neural foraminal stenosis. There is no central canal stenosis. L2-L3: The disc is bulging. There is moderate bilateral facet joint osteoarthritis. There is moderate bilateral neural foraminal stenosis. There is mild central canal stenosis. L3-L4: There is no facet joint hypertrophy. There is mild bilateral neural foraminal stenosis with po sterior decompression. There is no central canal stenosis. There is posterior decompression. L4-L5: There is severe left facet joint osteoarthritis. There is mild right neural foraminal stenosis with posterior decompression. There is moderate left neural foraminal stenosis. There is mild centra l canal stenosis with posterior decompression. L5-S1: The disc is bulging. There is moderate bilateral facet joint osteoarthritis. There is moderate bilateral neural foraminal stenosis. There is mild central canal stenosis. IMPRESSION: 1. Moderate lumbar spondylosis. 2. Anterior and posterior fusion procedures from L3 to L5. 3. Healing subacute transverse fracture of S4. Reviewed, dictated and finalized at location A. LIFE PHOTOGRAPHER
== END ==
PROVIDERS: PCP Nurse Practitioner Family; Visit Provider Nurse Practitioner Family
DX: M47.26 Other spondylosis with radiculopathy, lumbar region (principal); Z98.1 Arthrodesis status; S32.19XD Other fracture of sacrum, subsequent encounter for fracture with routine healing; X58.XXXD Exposure to other specified factors, subsequent encounter
CPT/HCPCS: 72131

== ENCOUNTER → 2024-01-16 10:13 | Outpatient (CLI) | payer MEDICARE, SELFPAY ==
--- NOTE | ~2024-01-16 | US_ITS ---
EXAMINATION: US scrotum doppler DATE: 01/16/2024 10:45 INDICATION: Chronic epididymitis. TECHNIQUE: Grayscale and Doppler ultrasound images of the testes were obtained. COMPARISON: Ultrasound 01/12/2020 FINDINGS: The right testis measures 3.2 x 1.8 x 1.6 cm. The left testis measures 2.7 x 2.2 x 1.4 cm. There is normal vascular flow to both testes. The right epididymis is normal with normal vascular guillermo w. The left epididymis is normal with normal vascular flow. There is no varicocele or hydrocele. IMPRESSION: 1. Normal testes. Reviewed, dictated and finalized at location A. SURGERY ASSISTANT IMPRESSION: 1. Normal testes.
== END ==
PROVIDERS: PCP Internal Medicine; Visit Provider Urology
DX: N45.1 Epididymitis (principal)
CPT/HCPCS: 76870; 93976

== ENCOUNTER 2024-02-26 09:58 | Outpatient (CLI) | payer MEDICARE, SELFPAY ==
[2024-02-26 12:09] LABS: Appearance Urine Clear (Clear); Bilirubin Urine Negative (Negative); Blood Urine Negative (Negative); Color Urine Yellow (Yellow); Glucose Urine UA 3+ mg/dL (Negative); Ketones Urine Negative (Negative); Leukocyte Esterase Ur Negative LEU/UL (Negative); Nitrate Urine Negative (Negative); Protein Urine Negative (Negative); Specific Grav Ur 1.029 (1.001-1.035); Urobilinogen Urine 0.2 mg/dL (<2.0); pH Urine 5.5 (5.0-9.0)
[2024-02-26 12:11] LABS: Basophils Percent Auto 0.3 % (0.2-1.2); Eosinophils Absolute Auto 0.1 K/mm3 (0-0.3); Eosinophils Percent Auto 1.2 % (0-4.4); Hematocrit 43.1 % (42.0-52.0); Hemoglobin 13.6 g/dL (14.0-18.0); Immature Granulocyte Absolute 0.04 K/mm3 (0.00-0.031); Immature Granulocyte Percent A 0.7 % (0-0.5); Lymphocytes Absolute Auto 0.94 K/mm3 (0.9-3.2); Lymphocytes Percent Auto 16.3 % (18.3-44.2); Mean Corpuscular HGB Conc 31.6 g/dl (32-36); Mean Corpuscular Hemoglobin 29.2 pg (26-34); Mean Corpuscular Volume 92.5 fl (80-100); Monocytes Absolute Auto 0.5 K/mm3 (0.1-0.6); Monocytes Percent Auto 8.3 % (2.6-8.5); Neutrophils Absolute Auto 4.2 K/mm3 (1.3-6.7); Neutrophils Percent Auto 73.2 % (45.5-73.1); Platelet Count Result 232 k/mm3 (150-375); Red Blood Count 4.66 M/mm3 (4.6-6.20); Red Cell Distribution Width 17.8 % (11.5-14.5); White Blood Count 5.8 K/mm3 (4.5-10.0)
[2024-02-26 12:15] LABS: Add Urine Microscopic? NO
[2024-02-26 12:34] LABS: Iron 64 ug/dL (49-181)
[2024-02-26 12:41] LABS: Alanine Aminotransferase 25 U/L (6-50); Albumin Level 4.4 g/dL (3.5-5.1); Alkaline Phosphatase 97 U/L (38-126); Anion Gap 6 mmol/L (4-12); Aspartate Amino Transferase 45 U/L (17-59); Bilirubin,Total 0.7 mg/dL (0.2-1.3); Blood Urea Nitrogen 20 mg/dL (9-20); Calcium 9.5 mg/dL (8.4-10.2); Carbon Dioxide 30 mmol/L (22-30); Chloride 104 mmol/L (98-107); Estimated Glomerular Filt Rate > 60; Glucose 178 mg/dL (65-110); Potassium 4.6 mmol/L (3.4-5.0); Sodium 140 mmol/L (137-145)
[2024-02-26 12:47] LABS: Percent Iron Saturation 18 % (20-50)
[2024-02-26 12:49] LABS: Free T4 Free Thyroxine 0.99 ng/mL (0.78-2.19)
[2024-02-26 14:00] LABS: Cholesterol 150 mg/dL (0-200); HDL Direct 53 mg/dL; Triglycerides 290 mg/dL (<150)
[2024-02-26 14:11] LABS: LDL Cholesterol Direct 60 mg/dL
[2024-02-26 22:25] LABS: Hemoglobin A1C 8.2 % (<5.7)
== END 2024-02-26 09:59 | disposition home or self-care (01) ==
PROVIDERS: PCP Internal Medicine; Visit Provider Internal Medicine
DX: D64.9 Anemia, unspecified (principal); I10 Essential (primary) hypertension; Z79.899 Other long term (current) drug therapy; Z13.29 Encounter for screening for other suspected endocrine disorder; E11.65 Type 2 diabetes mellitus with hyperglycemia; Z79.4 Long term (current) use of insulin; E78.2 Mixed hyperlipidemia
CPT/HCPCS: 36415; 80053; 80061; 81003; 82728; 83036; 83540; 83550; 84439; 84443; 85025

== ENCOUNTER 2024-03-25 12:29 | Outpatient (CLI) | payer MEDICARE, SELFPAY ==
--- NOTE | ~2024-03-25 | CT_ITS ---
EXAMINATION: CT lumbar spine wo con DATE: 03/25/2024 12:57 INDICATION: Low back pain, unspecified. TECHNIQUE: Computed tomography (CT) of the lumbar spine was performed without intravenous contrast. A utomated exposure control and iterative reconstruction technique were employed. The dose-length produ ct was 1070.01 mGy-cm. COMPARISON: Lumbar spine radiographs 12/18/23 FINDINGS: There is a 2.0 cm cyst in left kidney. There is 10 degrees levoscoliosis of lumbar spine. T here is mild chronic anterior wedging of T12 and L1 vertebral bodies. There are changes of anterior a nd posterior fusion procedure from L3 to L5 with interbody devices and pedicle screws. There are lami nectomies at L3 and L4. There is mildly decreased disc height at L2-L3 and moderately decreased disc height at L5-S1. Partially seen is a healing/healed transverse fracture of S4. The following disc lev els are specifically discussed: L1-L2: The disc is mildly bulging. There is mild bilateral facet joint osteoarthritis. There is mild bilateral neural foraminal stenosis. There is no central canal stenosis. L2-L3: The disc is bulging. There is moderate lateral facet joint osteoarthritis. There is moderate b ilateral neural foraminal stenosis. There is mild central canal stenosis. L3-L4: There is mild bilateral facet joint hypertrophy. There is moderate right and mild left neural foraminal stenosis. There is no central canal stenosis. L4-L5: There is moderate left facet joint hypertrophy. There is mild right and moderate left neural f oraminal stenosis with posterior decompression on the right. There is mild central canal stenosis wit h posterior decompression. L5-S1: The disc is bulging. There is moderate bilateral facet joint osteoarthritis. There is moderate bilateral neural foraminal stenosis. There is mild central canal stenosis. IMPRESSION: 1. Moderate lumbar spondylosis, stable from 12/18/23. 2. Anterior and posterior fusion procedures from L3 to L5. Reviewed, dictated and finalized at location A.
== END 2024-03-25 12:30 ==
PROVIDERS: PCP Internal Medicine; Visit Provider Internal Medicine
DX: M43.06 Spondylolysis, lumbar region (principal); Z98.1 Arthrodesis status
CPT/HCPCS: 72131

== ENCOUNTER 2024-04-29 15:44 | Outpatient (CLI) | payer MEDICARE, SELFPAY ==
[2024-04-29 17:54] LABS: Creatinine Urine 68.8 mg/dL
[2024-04-29 18:01] LABS: Microalbumin Urine Random < 6.0 mg/L (0-16.7)
[2024-04-29 18:02] LABS: MALB Creatinine Ratio < 8.7 mg/g (0-30)
== END 2024-04-29 15:45 | disposition home or self-care (01) ==
LOC: ANHWCLAB 15:45
PROVIDERS: PCP Internal Medicine; Visit Provider Internal Medicine Endocrinology, Diabetes & Metabolism
DX: E11.65 Type 2 diabetes mellitus with hyperglycemia (principal)
CPT/HCPCS: 82043

== ENCOUNTER 2024-06-09 13:22 | Outpatient (CLI) | payer MEDICARE, SELFPAY ==
--- NOTE | ~2024-06-09 | DEXA_ITS ---
Bone Density Report Name: BENOIT MORSE Age: 78 Sex: Male Ethnicity: White Date of : 1945 Indication: screening for osteoporosis; height loss; cancer; rheumatoid arthritis; Referring Provider: KENDRA, ROBERTO Study: Bone densitometry was performed. Exam Date: June 09, 2024 Accession number: [id number] Bone Density: Region BMD T-score Z-score Classification Femoral Neck (Left) 0.761 -1.2 0.2 Osteopenia Total Hip (Left) 0.901 -0.9 0.1 Normal Femoral Neck (Right) 0.814 -0.9 0.6 Normal Total Hip (Right) 0.961 -0.5 0.5 Normal Femoral Neck Mean 0.787 -1.1 0.4 Osteopenia Total Hip Mean 0.931 -0.7 0.3 Normal World Health Organization criteria for BMD impression classify patients as: Normal (T-score at or above -1.0), Osteopenia (T-score between -1.0 and -2.5), or Osteoporosis (T-score at or below -2.5). 10-year Fracture Risk(1): Major Osteoporotic Fracture 7.9% Hip Fracture 3.6% Reported Risk Factors: [place] (), Neck BMD=0.761, BMI=36.0, smoking, rheumatoid arthritis (1) FRAX(R) Version 3.08. Fracture probability calculated for an untreated patient. Fracture probability may be lower if the patient has received treatment. Clinical Information Provided by Patient: Smokes Has rheumatoid arthritis Has used the following medications: Vitamin D Has the following medical conditions: Cancer Patient maximum height was 71 No regular weight bearing exercise Drinks caffeinated beverages Impression: The patient has low bone mass, based on the Left Femoral Neck T-score. The patient has risk factors, including: smoking. Discussion: BONE DENSITY IS LOW AT ONE OR MORE SKELETAL SITES. This patient's lowest T-score is low at one or more skeletal sites. It meets the World Health Organization's (WHO) criteria for ?low bone mass? (T-score between -1.0 and -2.5). The patient's 10-year risk of fracture as calculated by FRAX is less than the threshold where pharmacological therapy is recommended by the National Osteoporosis Foundation (NOF). However, all treatment decisions require clinical judgment and consideration of individual patient factors, including patient preferences, comorbidities, previous drug use, risk factors not captured in the FRAX model (e.g., frailty, falls, vitamin D deficiency, increased bone turnover, interval significant decline in bone density) and possible under or overestimation of fracture risk by FRAX. The patient should follow a healthful lifestyle (good nutrition with adequate calcium and vitamin D, and appropriate weight-bearing exercise). Follow-Up: Consider repeating this study in 2 to 3 years to reassess this patient's status, or sooner if there is some new clinical indication. Reported by: Dr. Dejon Aggarwal on 06/09/2024 2:09:00 PM. Reviewed, dictated and finalized at location A.
== END 2024-06-09 13:23 | disposition home or self-care (01) ==
PROVIDERS: PCP Internal Medicine; Visit Provider Physician Assistant Medical
DX: M85.89 Other specified disorders of bone density and structure, multiple sites (principal)
CPT/HCPCS: 77080

== ENCOUNTER 2024-06-11 13:20 | Outpatient (CLI) | payer MEDICARE, SELFPAY ==
--- NOTE | ~2024-06-11 | CT_ITS ---
EXAMINATION: CT abdomen pelvis w con DATE: 06/11/2024 13:48 INDICATION: N28.9 - Disorder of kidney and ureter, unspecified TECHNIQUE: Computed tomography (CT) of the abdomen and pelvis was performed with 100 mL Omnipaque-350 intravenous contrast. Automated exposure control and iterative reconstruction technique were employe d. The dose-length product was 1189.53 mGy-cm. COMPARISON: 12/09/2023; 12/07/2023; 01/12/2020; CT abdomen without and with contrast 10/03/2006. FINDINGS: Lower thorax: Pacing wires over the heart. Liver: Normal. Biliary/Gallbladder: Gallbladder is absent. No bile duct dilation. Pancreas: Mild atrophy. Spleen: Normal. Adrenals:No mass. Kidneys: No suspicious mass, obstructing stone, or hydronephrosis. 2.4 cm exophytic indeterminate den sity left midpole lesion, not significantly changed in size since 2019. The lesion measures 1.6 cm in the 2005 examination and displayed no enhancement. Bilateral simple cysts. Subcentimeter left renal hypodensities, too small to characterize. Bilateral cortical thinning. GI tract: No small or large bowel dilation. Normal appendix. Diverticulosis without diverticulitis. Mesentery/Peritoneum: No ascites, mass, or free air. Retroperitoneum: No mass. Atherosclerotic abdominal aortic and/or arterial calcifications. Pelvis: Normal urinary bladder. Prostatic calcifications.. Soft Tissues: Soft tissues and body wall unremarkable. Bones: No acute osseous finding. Uncomplicated appearing lumbar fusion hardware. IMPRESSION: No acute abdominal pelvic process. Indeterminate density left midpole exophytic lesion, no suspicious interval change since 2019, slow i nterval growth noted over more remote examinations, dating back to 2005 at which time the lesion was nonenhancing. Likely hemorrhagic or proteinaceous cyst. Reviewed, dictated and finalized at location K. IMPRESSION: No acute abdominal pelvic process. Indeterminate density left midpole exophytic lesion, no suspicious interval dom nge since 2019, slow interval growth noted over more remote examinations, datin g back to 2005 at which time the lesion was nonenhancing. Likely hemorrhagic or proteinaceous cyst.
[2024-06-11 13:37] LABS: Estimated Glomerular Filt Rate 59
== END 2024-06-11 13:21 ==
LOC: MICIMG 13:21
PROVIDERS: PCP Internal Medicine; Visit Provider Internal Medicine
DX: N28.9 Disorder of kidney and ureter, unspecified (principal)
CPT/HCPCS: 74177; Q9967

== ENCOUNTER 2024-10-22 10:42 | Outpatient (CLI) | payer MEDICARE, SELFPAY ==
[2024-10-22 14:35] LABS: Basophils Percent Auto 0.6 % (0.2-1.2); Eosinophils Absolute Auto 0.1 K/mm3 (0-0.3); Eosinophils Percent Auto 1.9 % (0-4.4); Hematocrit 45.1 % (42.0-52.0); Hemoglobin 14.2 g/dL (14.0-18.0); Immature Granulocyte Absolute 0.02 K/mm3 (0.00-0.031); Immature Granulocyte Percent A 0.4 % (0-0.5); Lymphocytes Absolute Auto 0.78 K/mm3 (0.9-3.2); Mean Corpuscular HGB Conc 31.5 g/dl (32-36); Mean Corpuscular Hemoglobin 29.5 pg (26-34); Mean Corpuscular Volume 93.6 fl (80-100); Mean Platelet Volume 10.6 fl (7.4-10.4); Monocytes Absolute Auto 0.6 K/mm3 (0.1-0.6); Monocytes Percent Auto 11.7 % (2.6-8.5); Neutrophils Absolute Auto 3.7 K/mm3 (1.3-6.7); Neutrophils Percent Auto 70.4 % (45.5-73.1); Platelet Count Result 215 k/mm3 (150-375); Red Blood Count 4.82 M/mm3 (4.6-6.20); Red Cell Distribution Width 18.4 % (11.5-14.5); White Blood Count 5.2 K/mm3 (4.5-10.0)
[2024-10-22 14:44] LABS: Iron 66 ug/dL (49-181)
[2024-10-22 14:53] LABS: Percent Iron Saturation 18 % (20-50)
[2024-10-22 15:08] LABS: Vitamin D 25 Hydroxy 41.5 ng/mL
[2024-10-22 15:15] LABS: Alanine Aminotransferase 22 U/L (6-50); Albumin Level 4.1 g/dL (3.5-5.1); Alkaline Phosphatase 85 U/L (38-126); Anion Gap 3 mmol/L (4-12); Aspartate Amino Transferase 45 U/L (17-59); Bilirubin,Total 0.8 mg/dL (0.2-1.3); Blood Urea Nitrogen 20 mg/dL (9-20); Calcium 9.1 mg/dL (8.4-10.2); Carbon Dioxide 31 mmol/L (22-30); Chloride 103 mmol/L (98-107); Cholesterol 165 mg/dL (0-200); Estimated Glomerular Filt Rate > 60; Glucose 291 mg/dL (65-110); HDL Direct 59 mg/dL; Potassium 4.5 mmol/L (3.4-5.0); Sodium 137 mmol/L (137-145); Triglycerides 310 mg/dL (<150)
[2024-10-22 15:27] LABS: LDL Cholesterol Direct 61 mg/dL
[2024-10-22 16:09] LABS: Hemoglobin A1C 9.3 % (<5.7)
== END 2024-10-22 10:43 | disposition home or self-care (01) ==
PROVIDERS: PCP Internal Medicine; Visit Provider Internal Medicine
DX: I48.91 Unspecified atrial fibrillation (principal); I25.10 Atherosclerotic heart disease of native coronary artery without angina pectoris; D64.9 Anemia, unspecified; E11.9 Type 2 diabetes mellitus without complications; I10 Essential (primary) hypertension; E78.5 Hyperlipidemia, unspecified; E61.1 Iron deficiency; E55.9 Vitamin D deficiency, unspecified; Z79.4 Long term (current) use of insulin; Z79.899 Other long term (current) drug therapy
CPT/HCPCS: 36415; 80053; 80061; 82306; 82728; 83036; 83540; 83550; 85025

== ENCOUNTER 2024-11-16 10:43 | Outpatient (CLI) | payer MEDICARE, SELFPAY ==
[2024-11-16 12:31] LABS: CRP < 0.5 mg/dL (<1.0); Creatine Kinase 23 U/L (55-170)
[2024-11-16 13:52] LABS: Erythrocyte Sedimentation Rate 15 mm/hr (0-20)
[2024-11-19 12:14] LABS: Aldolase 4.5 U/L (< OR = 8.1)
== END 2024-11-16 10:44 | disposition home or self-care (01) ==
LOC: ANHGOSHLAB 10:44
PROVIDERS: PCP Internal Medicine; Visit Provider Internal Medicine
DX: M62.81 Muscle weakness (generalized) (principal)
CPT/HCPCS: 36415; 82085; 82550; 85652; 86140

== ENCOUNTER 2025-02-16 09:45 | Outpatient (CLI) | payer MEDICARE, SELFPAY ==
--- OUTSIDE RECORDS SUMMARY | 2025-02-16 10:34 | XMS_ITS | Clinical Summary ---
Author Organization [facility] [id number] Address [address] [place] [address] Care Team Providers Care Materials Recycler Name Role Phone Eric Pretty MD Primary Care Provider [phone] Dominic Young MD Unavailable [phone] Carlos Hernandez MD Unavailable [phone] Allergies Active Allergy Reactions Criticality Noted Date Comments Alprazolam Unknown 11/12/2022 Fentanyl Itching,Rash Medium 01/09/2018 Has only had it in patch form Hydrocodone Itching Low 02/23/2019 Oxycodone Itching Low Medications multivitamin tablet tablet take 1 tablet by oral route every day with food 0 0 01/24/20 16 Active cholecalcifer ol (VITAMIN D3) 2,000 unit tablet take 1 by Oral route once 0 0 01/24/20 16 Active gabapentin (NEURONTIN) 300 mg capsule take 3 capsule by oral route 3 times every day 0 0 03/17/20 15 Active atorvastatin (LIPITOR) 40 mg tablet take 1 tablet by oral route every day 0 0 01/23/20 16 Active HYDROcodone-a cetaminophen (NORCO) 7.5-325 mg per tablet 0 12/09/19 19 Active empagliflozin (JARDIANCE) 10 mg tabletIndicat ions:type 2 diabetes mellitus 10 mg Active clopidogrel (PLAVIX) 75 mg tablet Take 1 tablet (75 mg total) by mouth daily 90 tablet 2 08/16/20 19 Active metoprolol XL (TOPROL-XL) 25 mg extended release tablet Take 25 mg by mouth daily 09/27/[address] (PROTONIX) 40 mg EC tablet Take 40 mg by mouth daily 09/09/20 22 Active sertraline (ZOLOFT) 100 mg tablet Take 100 mg by mouth daily Active TRESIBA 200 unit/mL (3 mL) pen for injection INJECT 50 UNITS SUBCUTANEOUSLY ONCE DAILY 04/03/20 23 Active HumaLOG 100 unit/mL pen for injection INJECT 15 UNITS SUBCUTANEOUSLY BEFORE MEALS WITH A SLIDING SCALE DIRECTED. MAX OF 81 UNITS PER DAY 04/04/20 23 Active iron 18 mg tablet Take 320 mg by mouth Active methocarbamoL (ROBAXIN) 500 mg tabletIndicat ions:Muscle Spasm,as needed for back pain and leg pain Take 1 tablet (500 mg total) by mouth 2 (two) times a day 60 tablet 1 03/16/20 24 Active amiodarone (PACERONE) 100 mg tablet Take 1 tablet (100 mg total) by mouth daily 08/25/20 24 Active apixaban (ELIQUIS) 5 mg tablet Take 1 tablet (5 mg total) by mouth 2 (two) times a day Active methotrexate 2.5 mg tabletIndicat ions:Rheumato id Arthritis TAKE 4 TABLETS BY MOUTH IN THE MORNING AND 4 IN THE EVENING ONCE EVERY 7 DAYS 96 tablet 1 10/25/20 24 Active predniSONE (DELTASONE) 5 mg tablet Take 1 tablet by mouth once daily 30 tablet 2 01/25/20 25 Active folic acid (FOLVITE) 1 mg tablet Take 1 tablet by mouth once daily 30 tablet 2 02/12/20 25 Active predniSONE (DELTASONE) 5 mg tablet Take 1 tablet by mouth once daily 30 tablet 2 10/18/20 24 2024 Discontinued folic acid (FOLVITE) 1 mg tablet Take 1 tablet by mouth once daily 30 tablet 2 11/11/20 24 2024 Discontinued Active Problems Problem Noted Date Diagnosed Date Age-related osteoporosis wit hout current pathological fracture 06/22/2024 Overview (06/22/2024): BMD 06/09/24: LFN 0.761, tscore -1.2 Total L hip 0.901, tscore -0.9 RFN 0.814, tscore -0.9 Total R hip 0.961, tscore -0.5 FRAX 7.9/3.6 Osteopenia of L femoral neck on BMD, with high frax for hip fracture (3.6%) and evidence of wedge compression T12-L1 on lumbar CT and healing or healed transverse fracture of S4 Assessment & Plan (12/24/2024 12:49 PM ORACLE ASCP CONSULTANT): BMD 06/09/24: LFN 0.761, tscore -1.2 Total L hip 0.901, tscore -0.9 RFN 0.814, tscore -0.9 Total R hip 0.961, tscore -0.5 FRAX 7.9/3.6 Osteopenia of L femoral neck on BMD, with high frax for hip fracture (3.6%) and evidence of wedge compression T12-L1 on lumbar CT and healing or healed transverse fracture of S4 Discussed results and while his BMD measurements are not bad, he does have evidence for previous vertebral fractures as well as a sacral fracture. His FRAX for hip fracture is above 3% which is the threshold for treatment. Started IV Reclast 06/28/24. continue citracal twice daily. Will continue Reclast for 3-5 years then consider drug holiday or change in tx if BMD worsens/new fracture occurs. Assessment & Plan (09/23/2024 2:49 PM ORACLE ASCP CONSULTANT): BMD 06/09/24: LFN 0.761, tscore -1.2 Total L hip 0.901, tscore -0.9 RFN 0.814, tscore -0.9 Total R hip 0.961, tscore -0.5 FRAX 7.9/3.6 Osteopenia of L femoral neck on BMD, with high frax for hip fracture (3.6%) and evidence of wedge compression T12-L1 on lumbar CT and healing or healed transverse fracture of S4 Discussed results and while his BMD measurements are not bad, he does have evidence for previous vertebral fractures as well as a sacral fracture. His FRAX for hip fracture is above 3% which is the threshold for treatment. Started IV Reclast 06/28/24. continue citracal twice daily. Will continue Reclast for 3-5 years then consider drug holiday or change in tx if BMD worsens/new fracture occurs. Assessment & Plan (06/22/2024 3:23 PM CDT): BMD 06/09/24: LFN 0.761, tscore -1.2 Total L hip 0.901, tscore -0.9 RFN 0.814, tscore -0.9 Total R hip 0.961, tscore -0.5 FRAX 7.9/3.6 Osteopenia of L femoral neck on BMD, with high frax for hip fracture (3.6%) and evidence of wedge compression T12-L1 on lumbar CT and healing or healed transverse fracture of S4 Discussed results and while his BMD measurements are not bad, he does have evidence for previous vertebral fractures as well as a sacral fracture. His FRAX for hip fracture is above 3% which is the threshold for treatment. Discussed IV Reclast and pt willing to proceed. Will check labs and then insurance benefits. Advised to start citracal twice daily. Will continue Reclast for 3-5 years then consider drug holiday or change in tx if BMD worsens/new fracture occurs. Wedge compression fracture o f lumbar vertebra with routine healing 04/09/2024 Overview (06/22/2024): Noted on spine CT 04/09 BMD from 08/04/12 Spine 1.213, tscore 1.3, zscore 2.1 LFN 0.935, tscore 0.0, zscore 1.1 Total hip (L) 1.139, tscore 0.7, zscore 1.3 RFN 0.822, tscore -0.8, zscore 0.3 Total hip (R) 1.175, tscore 0.9, zscore 1.5 BMD 06/09/24: LFN 0.761, tscore -1.2 Total L hip 0.901, tscore -0.9 RFN 0.814, tscore -0.9 Total R hip 0.961, tscore -0.5 FRAX 7.9/3.6 Chronic right shoulder pain 12/12/2022 Overview (09/23/2024): Xrays 2016: Moderate osteoarthritis of the acromioclavicular joints bilaterally. Mild bilateral shoulder osteoarthritis. Superior subluxation of the right humeral head which may represent rotator cuff tendinopathy or tear. Saw a surgeon years ago and was told he was not a good surgical candidate Assessment & Plan (09/23/2024 1:14 PM [employer]ACLE ASCP CONSULTANT): Xrays 2016: Moderate osteoarthritis of the acromioclavicular joints bilaterally. Mild bilateral shoulder osteoarthritis. Superior subluxation of the right humeral head which may represent rotator cuff tendinopathy or tear. Saw a surgeon years ago and was told he was not a good surgical candidate Assessment & Plan (04/17/2023 4:34 PM CDT): Hx rotator cuff tears (plus R bicep tear?) per pt's report. R shoulder painful with active/resisted abduction and internal rotation. Has been to PT in the past; he declines going back for now. I recommend at least doing passive ROM pendulums and wall walks. Assessment & Plan (12/12/2022 3:07 PM ORACLE ASCP CONSULTANT): R shoulder hurting for the past 2-3 days. May have been triggered by carrying in grocery bags. Hx rotator cuff tears per pt's report. Recommend heat/ice, rest. Will order PT. Consider seeing ortho if not improving Atherosclerotic cardiovascular disease Assessment & Plan (11/12/2022 3:08 PM ORACLE ASCP CONSULTANT): S/p multiple MIs/cardiac arrest, sick sinus, CHF. Has pacemaker. 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 On eliquis and clopidogrel History of DVT of lower extremity 11/12/2022 History of prostate cancer 11/12/2022 Overview (11/12/2022): Treated with radiation in 2017 Chronic pain syndrome 12/16/2021 Type 2 diabetes mellitus wit h diabetic neuropathy, unspecified 11/17/2020 Chronic pain of right knee 06/08/2019 Assessment & Plan (09/23/2024 1:05 PM ORACLE ASCP CONSULTANT): Mild OA on xray from 06/04. Had cortisone shots years ago but they spiked his sugars. Had zilretta on 10/29/19 as this formulation causes less systemic steroid effect than regular triamcinolone injection. However, he reported no benefit. Assessment & Plan (06/22/2024 3:20 PM CDT): Mild OA on xray from 06/04. Had cortisone shots years ago but they spiked his sugars. Had zilretta on 10/29/19 as this formulation causes less systemic steroid effect than regular triamcinolone injection. However, he reported no benefit. Assessment & Plan (01/04/2020 12:03 PM ORACLE ASCP CONSULTANT): Mild OA on xray from 06/04. Had cortisone shots years ago but they spiked his sugars. Had zilretta on 10/29/19 as this formulation causes less systemic steroid effect than regular triamcinolone injection. However, he reported no benefit. Assessment & Plan (10/26/2019 2:15 PM ORACLE ASCP CONSULTANT): Mild OA on xray from 06/04. Had cortisone shots years ago but they spiked his sugars. could try Zilretta vs Monovisc. zilretta was approved in 06/04 but he decided he didn't want to do it. Today he reports that his knee is bothering him more and he would like to do the zilretta. Will check on approval and then schedule under ultrasound. Assessment & Plan (08/10/2019 11:48 AM CDT): Mild OA on xray from 06/04. Had cortisone shots years ago but they spiked his sugars. could try Zilretta vs Monovisc. zilretta was approved in 06/04 but he decided he didn't want to do it. Assessment & Plan (06/08/2019 12:07 PM CDT): Presumed DJD. No recent imaging. Had cortisone shots years ago but they spiked his sugars. Discussed rechecking xray and could try Zilretta vs Monovisc. Will look into zilretta as we are currently having difficulty getting Monovisc covered by Medicare. Osteoarthritis of spine with radiculopathy, lumb ar region 03/25/2019 Overview (11/12/2022): 3 prior back surgeries Pain mgmt: [facility] ([facility] in [facility] Assessment & Plan (12/24/2024 2:28 PM ORACLE ASCP CONSULTANT): 3 prior back surgeries and still having a lot of pain. Decided against pursuing any more surgery. Has been to pain mgmt in [facility]. Continues to take gabapentin for neuropathic pain. Assessment & Plan (09/23/2024 1:05 PM ORACLE ASCP CONSULTANT): 3 prior back surgeries and still having a lot of pain. Decided against pursuing any more surgery. Has been to pain mgmt in [facility]. Continues to take gabapentin for neuropathic pain. Assessment & Plan (06/22/2024 3:21 PM CDT): 3 prior back surgeries and still having a lot of pain. Decided against pursuing any more surgery. Has been to pain mgmt in [facility]. Continues to take gabapentin for neuropathic pain. Assessment & Plan (03/16/2024 4:37 PM CDT): 3 prior back surgeries and still having a lot of pain. Decided against pursuing any more surgery. Has been to pain mgmt in [facility]. Continues to take gabapentin for neuropathic pain. 3 days ago he developed acute worsening of R sided low back pain radiating to hip/thigh to R knee. No injury. Has +SLR on R leg. Unable to actively hip flex due to pain. R gluteal/SI region tender to palpation. Trochanteric region not particularly tender to palpation. Will xray R hip and get updated imaging of spine, gave orders for xray of L-spine and MRI of L-spine. He is also seeing pcp tomorrow and can discuss further. Will give script for robaxin since he already has pain meds, and he may try this cautiously to see if it helps his pain. Increasing prednisone not likely to be helpful for this type of pain. Precautions regarding falls and sedation given. Assessment & Plan (01/28/2024 10:28 AM CDT): 3 prior back surgeries and still having a lot of pain. Decided against pursuing any more surgery. Has been to pain mgmt in [facility]. Continues to take gabapentin for neuropathic pain Assessment & Plan (07/28/2023 3:39 PM CDT): 3 prior back surgeries and still having a lot of pain. Decided against pursuing any more surgery. Has been to pain mgmt in [facility]. Continues to take gabapentin for neuropathic pain Assessment & Plan (05/27/2023 4:30 PM CDT): 3 prior back surgeries and still having a lot of pain. Thinking about going back to see nsg for opinion if there is anything else he can do. Has been to pain mgmt in [facility]. Continues to take gabapentin for neuropathic pain Assessment & Plan (11/12/2022 3:05 PM ORACLE ASCP CONSULTANT): 3 prior back surgeries and he does not want to have any additional surgery. Sees pain mgmt in [facility]. Discussed pain stimulator but he deferred for now. Continues to take gabapentin for neuropathic pain Assessment & Plan (01/04/2020 12:04 PM ORACLE ASCP CONSULTANT): No surgery planned. Continue to f/u with pcp and pain mgmt. Encouraged to continue water exercise. Declines PT. Discuss weight loss treatments with pcp. He used to be on duloxetine for mood and chronic pain and can't remember why he stopped. He would be willing to restart this now. Begin 30mg daily. Assessment & Plan (10/26/2019 2:16 PM ORACLE ASCP CONSULTANT): No surgery planned. Continue to f/u with pcp and pain mgmt. Encouraged water exercise. Declines PT Assessment & Plan (08/10/2019 11:48 AM CDT): No surgery planned. Continue to f/u with pcp and pain mgmt. Encouraged water exercise. Declines PT Assessment & Plan (06/08/2019 12:09 PM CDT): No surgery planned. Continue to f/u with pcp and pain mgmt Assessment & Plan (03/26/2019 8:13 AM CDT): Severe djd, foraminal stenosis. Seeing spine surgeon and pain mgmt. May need surgery Contusion of left lower leg 03/25/2019 Assessment & Plan (03/26/2019 8:13 AM CDT): Hit his L lower leg getting into truck about a week ago, had swelling, bruising, and still very tender. Will xray to r/o fx. Weakness 02/02/2019 Orthostatic hypotension 08/20/2018 Assessment & Plan (08/21/2018 2:15 PM CDT): Saw principal ios developer who put him back on midodrine. Just started this today. Had episode of lightheadedness coming into the office today, better with sitting. Also describes vertigo sometimes and I suggested this might represent a different problem, discuss with pcp. High risk medications (not anticoagulants) long- term use 01/29/2018 Overview (08/10/2019): Neg quantiferon 12/18 Neg hepatitis 12/18 Assessment & Plan (12/24/2024 12:50 PM ORACLE ASCP CONSULTANT): Neg quantiferon 12/18 Neg hepatitis 12/18 utd , [id number], yearly flu shot. Had shingrix Had RSV vaccine Had original COVID vaccine series but not additional boosters Assessment & Plan (09/23/2024 1:19 PM ORACLE ASCP CONSULTANT): Neg quantiferon 12/18 Neg hepatitis 12/18 utd , [id number], yearly flu shot. Had shingrix Had RSV vaccine Had original COVID vaccine series but not additional boosters Assessment & Plan (06/22/2024 1:27 PM CDT): Neg quantiferon 12/18 Neg hepatitis 12/18 utd [id number], [id number], yearly flu shot. Recommend shingrix, COVID booster Assessment & Plan (03/16/2024 2:20 PM CDT): Neg quantiferon 12/18 Neg hepatitis 12/18 utd [id number], [id number], yearly flu shot. Recommend shingrix, COVID booster Assessment & Plan (01/27/2024 1:06 PM CDT): Neg quantiferon 12/18 Neg hepatitis 12/18 utd [id number], [id number], yearly flu shot. Recommend shingrix, COVID booster Assessment & Plan (10/28/2023 3:46 PM ORACLE ASCP CONSULTANT): Neg quantiferon 12/18 Neg hepatitis 12/18 utd [id number], [id number], yearly flu shot. Recommend shingrix, COVID booster Assessment & Plan (07/28/2023 2:25 PM CDT): Neg quantiferon 12/18 Neg hepatitis 12/18 utd [id number], [id number], yearly flu shot. Recommend shingrix, COVID booster Assessment & Plan (05/27/2023 1:55 PM CDT): Neg quantiferon 12/18 Neg hepatitis 12/18 utd [id number], [id number], flu shot. Recommend shingrix, COVID boosters if not done Assessment & Plan (04/17/2023 4:33 PM CDT): Neg quantiferon 12/18 Neg hepatitis 12/18 utd [id number], [id number], flu shot. Recommend shingrix, COVID boosters if not done Assessment & Plan (12/12/2022 3:06 PM ORACLE ASCP CONSULTANT): Neg quantiferon 12/18 Neg hepatitis 12/18 utd [id number], , flu shot. Recommend shingrix, COVID boosters if not done Will advise Evusheld if he goes back on Rituxan in the future Assessment & Plan (11/12/2022 3:05 PM ORACLE ASCP CONSULTANT): Neg quantiferon 18 Neg hepatitis 12/18 utd [id number], [id number], flu shot. Recommend shingrix, COVID boosters if not done Will advise Evusheld if he goes back on Rituxan in the future Assessment & Plan (01/04/2020 11:23 AM ORACLE ASCP CONSULTANT): Neg quantiferon 11/03 Neg hepatitis 12/18 utd [id number], [id number], flu shot. Recommend shingrix Assessment & Plan (10/26/2019 11:19 AM ORACLE ASCP CONSULTANT): Neg quantiferon 18 Neg hepatitis 12/18 utd [id number], [id number], flu shot. Recommend shingrix Assessment & Plan (08/10/2019 11:37 AM CDT): Neg quantiferon 11/03 Neg hepatitis 18 Assessment & Plan (06/08/2019 12:09 PM CDT): Neg quantiferon 12/18 Neg hepatitis 1218 Assessment & Plan (03/26/2019 8:13 AM CDT): Neg quantiferon 18 Neg hepatitis 1218 Assessment & Plan (12/24/2018 9:59 PM ORACLE ASCP CONSULTANT): Neg quantiferon 18 Neg hepatitis 11/03 Syncope and collapse 08/28/2017 Orthostasis 08/28/2017 Coronary artery disease invo lving [place] coronary artery of [place] heart with angina pectoris 08/28/2017 Assessment & Plan (01/04/2020 12:04 PM ORACLE ASCP CONSULTANT): Pt had abnormal stress test followed by cardiac cath, stenting. Symptoms currently improved. principal ios developer Dr. Young. Requested lipid panel so will add to our labs and send results Sick sinus syndrome 08/28/2017 Hyperlipidemia LDL goal <70 08/28/2017 Hyperlipidemia associated with type 2 diabetes m ellitus 08/28/2017 Tired 01/29/2017 Overview (04/11/2017): Tiredness Assessment & Plan (01/29/2018 5:32 PM CDT): May be due to many issues including uncontrolled DM, RA, and other things. F/u with pcp Chest pain 11/07/2016 Overview (02/22/2017): Atypical chest pain Diabetic dyslipidemia associ ated with type 2 diabetes mellitus 01/24/2016 Overview (02/22/2017): Hyperlipidemia associated with type 2 diabetes mellitus Mononeuropathy associated with type II diabetes mellitus 01/24/2016 Overview (02/22/2017): Type 2 diabetes mellitus with diabetic neuropathy Hypertension 04/02/2014 Overview (02/21/2017): HTN (hypertension) Abnormal liver enzymes 03/28/2014 Overview (02/20/2017): Elevated liver enzymes Low back pain 08/10/2013 Overview (02/20/2017): Low back pain Assessment & Plan (08/21/2018 3:52 PM CDT): Seeing pain mgmt. Has had injections without relief. Pt inquired about CBD oil but we discussed it is not approved and there is limited data to support its use at the present time. Neuropathy 01/04/2013 Overview (02/19/2017): Neuropathy Gastroesophageal reflux disease 01/04/2013 Overview (02/20/2017): GERD (gastroesophageal reflux disease) Seasonal allergic rhinitis 01/04/2013 Overview (02/21/2017): Seasonal allergies Rheumatoid arthritis of [facility] sites with negative rheumatoid factor 05/06/2011 Overview (04/17/2023): Failed humira, remicade, orenica, and actemra 1st Rituxan series: 11/23/18, 12/08/18 2nd series 06/14/19, 07/01/19 Avoid DRISS due to hx DVT, CVD Assessment & Plan (12/24/2024 2:28 PM ORACLE ASCP CONSULTANT): cdai = 33, high Was not seen between 2019 and 11/07, off RA meds during that time, and also had multiple cardiac issues in the interim. Restarted 15mg mtx weekly and 5mg prednisone in 04/17/23. He felt significantly better. Now on 20mg mtx (split dosing) and remains on 5mg (felt worse when tapering to 4mg). His hand joints and CDAI improved. However, today he reports increased hand pain for the last several weeks. CDAI is high. Pt took 2 series of Rituxan in 2018. Has also been on humira, remicade, orenica, and actemra in the past. Would avoid Melissa due to hx DVT and heart disease. Triamcinolone shots are helpful for him but cause spike in sugars. He is on insulin and has a continuous glucose monitor. Sees endocrinology. Due to flare I will have him increase prednisone to 15mg daily for 4 days, 10mg for 4 days, then back to 5mg daily. Asked him to call with update in 2-3 weeks. Consider restarting Rituxan if not controlled in the future. Labs today. F/u 3 months, sooner if needed Assessment & Plan (09/23/2024 2:48 PM ORACLE ASCP CONSULTANT): cdai = 17, moderate Was not seen between 2019 and 11/07, off RA meds during that time, and also had multiple cardiac issues in the interim. Restarted 15mg mtx weekly and 5mg prednisone in 04/17/23. He felt significantly better. Now on 20mg mtx (split dosing) and remains on 5mg (felt worse when tapering to 4mg). His hand joints are better and CDAI improved. Pt took 2 series of Rituxan in 2018. Has also been on humira, remicade, orenica, and actemra in the past. Would avoid Melissa due to hx DVT and heart disease. Last triamcinolone shot was helpful but caused spike in sugars. He is on insulin and has a continuous glucose monitor. Sees endocrinology. Consider restarting Rituxan if not controlled in the future. I suspect most of his current pain is due to OA/fibro more than RA. Labs today. F/u 3 months Assessment & Plan (06/22/2024 3:20 PM CDT): cdai = 14, low/moderate Was not seen between 2019 and 11/07, off RA meds during that time, and also had multiple cardiac issues in the interim. Restarted 15mg mtx weekly and 5mg prednisone in 04/17/23. He felt significantly better. Now on 20mg mtx (split dosing) and remains on 5mg (felt worse when tapering to 4mg). His hand joints are better and CDAI improved. Pt took 2 series of Rituxan in 2019. Has also been on humira, remicade, orenica, and actemra in the past. Would avoid Melissa due to hx DVT and heart disease. Last triamcinolone shot was helpful but caused spike in sugars. Took a prednisone burst and taper about a month ago due to flare of joint symptoms. He is on insulin and has a continuous glucose monitor. Sees endocrinology. Consider restarting Rituxan if not controlled in the future. Some of his pain may be OA/fibro also. His worst pain today is in low back, see below discussion. Labs today. F/u 3 months Assessment & Plan (03/16/2024 4:40 PM CDT): cdai = 10, low Was not seen between 2019 and 11/07, off RA meds during that time, and also had multiple cardiac issues in the interim. Restarted 15mg mtx weekly and 5mg prednisone in 04/17/23. He felt significantly better. Now on 20mg mtx (split dosing) and remains on 5mg (felt worse when tapering to 4mg). His hand joints are better and CDAI improved. Pt took 2 series of Rituxan in 2019. Has also been on humira, remicade, orenica, and actemra in the past. Would avoid Melissa due to hx DVT and heart disease. Last triamcinolone shot was helpful but caused spike in sugars. He is on insulin and has a continuous glucose monitor. Sees endocrinology. Consider restarting Rituxan if not controlled in the future. Some of his pain may be OA/fibro also. His worst pain today is in low back, see below discussion. Just had labs with PCP so will request those results. Seen with Dr. Hernandez. F/u 3 months Assessment & Plan (01/28/2024 10:28 AM CDT): cdai = 37, high Was not seen between 2019 and 11/07, off RA meds during that time, and also had multiple cardiac issues in the interim. Restarted 15mg mtx weekly and 5mg prednisone in 04/17/23. He felt significantly better. Pt took 2 series of Rituxan in 2018. Was also on Methotrexate 20mg weekly in the past. Has also been on humira, remicade, orenica, and actemra in the past. Would avoid Melissa due to hx DVT and heart disease. Last triamcinolone shot was helpful but caused spike in sugars. He is on insulin and has a continuous glucose monitor. Sees endocrinology. Consider restarting Rituxan if not controlled in the future. We attempted tapering pred from 5mg to 4mg daily at last visit. He seems to be feeling worse since then and his CDAI is higher. Some of his pain may be OA/fibro, but since he was better on 5mg prednisone we will go back to this dose. Will also increase mtx to 20mg weekly, split dosing (4 tabs AM and 4 tabs PM one day per week). Seen with Dr. Hernandez. Labs today. F/u 4-6 weeks Assessment & Plan (10/28/2023 3:45 PM [employer]LE [employer] CONSULTANT): cdai = 10, low, improving Was not seen between 2019 and 11/07, off RA meds during that time, and also had multiple cardiac issues in the interim. Restarted 15mg mtx weekly and 5mg prednisone in 04/17/23. He feels significantly better. Pt took 2 series of Rituxan in 2018. Was also on Methotrexate 20mg weekly in the past. Has also been on humira, remicade, orenica, and actemra in the past. Would avoid Melissa due to hx DVT and heart disease. Last triamcinolone shot was helpful but caused spike in sugars. He is on insulin and has a continuous glucose monitor. Sees endocrinology. He showed me the last few weeks of his readings and he ranges 150s - 250s. Consider restarting Rituxan if not controlled in the future. Continue same doses of mtx 15mg weekly, folic acid 1mg daily. Will taper prednisone to 4mg daily, then consider reducing 1mg/month. Labs today. F/u [address] Henley. Assessment & Plan (07/28/2023 3:39 PM CDT): cdai = 16, moderate, which continues to improve Was not seen between 2019 and 11/07, off RA meds during that time, and also had multiple cardiac issues in the interim. Restarted 15mg mtx weekly and 5mg prednisone at last visit on 04/17/23. He feels significantly better. Pt took 2 series of Rituxan in 2019. Was also on Methotrexate 20mg weekly in the past. Has also been on humira, remicade, orenica, and actemra in the past. Would avoid Melissa due to hx DVT and heart disease. Last triamcinolone shot was helpful but caused spike in sugars. He is on insulin and has a continuous glucose monitor. Sees endocrinology. He showed me the last few weeks of his readings and he ranges 150s - 250s. Consider restarting Rituxan if not controlled in the future. Continue same doses of mtx 15mg weekly, folic acid 1mg daily, and 5mg prednisone daily. Last egfr was 68. Labs today. F/u 3 months Assessment & Plan (05/27/2023 4:29 PM CDT): cdai = 22, moderate, which is slightly impoved Was not seen between 2019 and 11/07, off RA meds during that time, and also had multiple cardiac issues in the interim. Restarted mtx in 11/07 at 10mg weekly and then increased dose to 15mg weekly. However, he stopped it a few months ago when he had to cancel his f/u appt. Restarted 15mg mtx weekly and 5mg prednisone at last visit on 04/17/23. He feels a bit better. Pt took 2 series of Rituxan in 2019. Was also on Methotrexate 20mg weekly in the past. Has also been on humira, remicade, orenica, and actemra in the past. Would avoid Melissa due to hx DVT and heart disease. Last triamcinolone shot was helpful but caused spike in sugars. Consider restarting Rituxan if not controlled in the future. Continue same doses of mtx 15mg weekly, folic acid 1mg daily, and 5mg prednisone daily. Monitor sugars. Last egfr was 59. Labs today. F/u 2 months Assessment & Plan (04/17/2023 4:33 PM CDT): cdai = 26, high Was not seen between 2019 and 11/07, off RA meds during that time, and also had multiple cardiac issues in the interim. Restarted mtx in 11/07 at 10mg weekly and then increased dose to 15mg weekly. However, he stopped it a few months ago when he had to cancel his f/u appt. Joints are tender and swollen today, would like to restart meds. Pt took 2 series of Rituxan in 2019. Was also on Methotrexate 20mg weekly in the past. Has also been on humira, remicade, orenica, and actemra in the past. Would avoid Melissa due to hx DVT and heart disease. Last triamcinolone shot was helpful but caused spike in sugars. Consider restarting Rituxan if not controlled in the future. For now, resume mtx 15mg weekly, folic acid 1mg daily, and 5mg prednisone daily. Monitor sugars. Labs next. F/u 1 month Assessment & Plan (12/12/2022 3:05 PM [employer] CONSULTANT): cdai = 27, high Last seen in 2019 and had multiple cardiac issues in the interim. Was off RA meds for the past 2 years. Now having increased pain and swelling in multiple joints and would like to restart RA treatment. We restarted mtx last month (11/07) at 10mg weekly. Tolerating ok. Still has synovitis. Will increase dose to 15mg weekly. Pt received first Rituxan series in 12/05, repeated 06/14 and 07/01. Was also on Methotrexate 20mg weekly. Has been on humira, remicade, orenica, and actemra in the past. Last triamcinolone shot was helpful but caused spike in sugars. Consider restarting Rituxan. Offered IM kenalog and pt would like to proceed. 100mg triamcinolone IM given. Will also begin 5mg prednisone orally. Labs today. Seen with Dr. Henley. F/u 1 month Assessment & Plan (11/12/2022 3:10 PM [employer]LE [employer] CONSULTANT): cdai = 32, high Last seen in 2019 and had multiple cardiac issues in the interim. Off RA meds for the past 2 years. Now having increased pain and swelling in multiple joints and would like to restart RA treatment. Pt received first Rituxan series in 12/05, repeated 06/14 and 07/01. Was also on Methotrexate 20mg weekly. Has been on humira, remicade, orenica, and actemra in the past. Last triamcinolone shot was helpful but caused spike in sugars. Will restart mtx at 10mg weekly with folic acid 1mg daily. Will titrate dose next, consider restarting Rituxan also next. Offered IM kenalog and pt would like to proceed. 100mg triamcinolone IM given. Labs today. Seen with Dr. Henley. F/u 1 month Assessment & Plan (01/04/2020 11:21 AM [employer]LE ASCP CONSULTANT): cdai = 26, high Pt received first Rituxan series in 12/05, repeated 06/14 and 07/01. He had to postpone his last treatment due to abnormal stress test and cardiac cath. Ok to schedule now. Currently taking Methotrexate 20mg weekly. Has been on humira, remicade, orenica, and actemra in the past. Last triamcinolone shot was helpful but caused spike in sugars. Labs today and will include lipid panel for cardiology today. F/u 3 months Assessment & Plan (10/26/2019 2:17 PM [employer]LE [employer]P CONSULTANT): cdai = 30 Pt received first Rituxan series in 12/05, repeated 06/14 and 07/01. High activity so will schedule for repeat treatment. Currently taking Methotrexate 20mg weekly. Has been on humira, remicade, orenica, and actemra in the past. Last triamcinolone shot was helpful but caused spike in sugars. Had labs from pcp last week. Will request and let him know if we need any additional once I review.. F/u 2 months. Assessment & Plan (08/10/2019 12:00 PM CDT): cdai = 13, low-moderate Pt received first Rituxan series in 12/05, repeated 06/14 and 07/01. Will repeat at 4-6 months. Currently taking Methotrexate 20mg weekly. Has been on humira, remicade, orenica, and actemra in the past. Last triamcinolone shot was helpful but caused spike in sugars. Will repeat labs today. F/u 3 months. Assessment & Plan (06/08/2019 12:07 PM CDT): cdai = 38, high Pt received first Rituxan series in 12/05. Currently taking Methotrexate 20mg weekly. He feels like it is starting to wear off and would like to repeat. Scheduled next week. Has been on humira, remicade, orenica, and actemra in the past. Will repeat labs today. F/u 2 months. Requesting 100mg triamcinolone IM due to burden of disease. Advised it will raise sugars temporarily and he is aware. Seen with dr. Henley. Assessment & Plan (03/26/2019 8:12 AM CDT): cdai = 28 Pt received first Rituxan series in 12/05. Currently taking Methotrexate 20mg weekly. He feels like it is starting to wear off and would like to repeat. However, he is undergoing evaluation of his lumbar spine djd/stenosis and may be a candidate for another surgery. Will await decision on surgery before scheduling Rituxan. Has been on humira, remicade, orenica, and actemra in the past. Will repeat labs today. F/u 2 months. Declines steroids today. Assessment & Plan (12/24/2018 9:58 PM [employer] CONSULTANT): cdai = 13, low-moderate Pt received first Rituxan series in 12/05 and appears improved. He had also received steroids at his last visit. Currently taking Methotrexate 20mg weekly. Has been on humira, remicade, orenica, and actemra in the past. Will repeat labs today. F/u 3 months. Will retreat with rituxan at 4-6 months depending on how he's doing. Assessment & Plan (10/26/2018 9:41 AM [employer]LE ASCP CONSULTANT): High cdai. Patient has been having more pain and stiffness in most of his joints for the past few months. Complaining of persistent stiffness and swelling in his hands. Currently taking Methotrexate 20mg weekly. Has been off of actemra for over a year now. Has been on humira, remicade, orenica, and actemra in the past. Multiple swollen and tender joints on peripheral joint exam today as well as tenderness to his bilateral shoulders, elbows, and ankles. At this time, patient appears to be having a flare of his RA; however, patient would also likely benefit from addition of a biologic medication due to his history of ongoing symptoms. Will begin approval for Rituxan. Patient was given an informational handout about Rituxan. Patient advised of the side effects of the medication, including but not limited to increase risk of infection, rash, infusion site reaction, as well as PML. Due to burden of disease, will administer kenalog 100 mg IM injection, in office, today. Patient was advised of the potential side effects of the medication, including but not limited to increased blood sugar, weight gain, avascular necrosis, glaucoma, cataracts, and/or osteoporosis. Continue methotrexate 20mg weekly. Routine labs today. Follow up in 1 month. Sooner if needed. Discussed with Dr. Henley. Assessment & Plan (08/21/2018 3:51 PM CDT): cdai = 18 He feels better on mtx 20mg. He states he had side effects when on 25mg in the past. Will continue current dose for now. Will get recent lab results from pcp. Discussed flu shot but he may look into the high dose vaccine for people over 65. Consider retrying biologics in the future. f/u [address] Henley. Assessment & Plan (05/11/2018 9:50 AM CDT): cdai = 11 He feels better on mtx 20mg. He states he had side effects when on 25mg in the past. Will continue current dose for now. Will recheck labs today. Consider retrying biologics in the future. f/u 3 months Assessment & Plan (03/24/2018 1:56 PM CDT): Moderate disease activity at this time. He feels some better on mtx 15mg and will increase to 20mg weekly. He states he had side effects when on 25mg in the past. Will recheck labs today. Did not take prednisone due to side effects (elevated sugars, irritable). f/u 1 month Assessment & Plan (02/12/2018 2:38 PM CDT): High disease activity at this time. Will resume 10mg of prednisone due to his burden of disease. His bs are some better but will have to be monitored for worsening. Will go up to 6tabs on mtx. Assessment & Plan (01/29/2018 5:32 PM CDT): Last seen in 11/01. At that visit he was on actemra and mtx. Since then he stopped meds due to heart disease and prostate CA. Is in a lot more pain today. Will restart mtx 10mg weekly and folic acid 1mg daily. F/u [address] Henley. Encouraged pt to f/u with pcp to try to get diabetes under control or return to ER if needed. Diabetes mellitus 05/06/2011 Overview (01/25/2019): DM (diabetes mellitus) Assessment & Plan (02/12/2018 2:41 PM CDT): Sugars are better on insulin. Will cont to monitor. Lumbar radiculopathy 05/06/2011 Encounters Date Type Department Care Team Description 12/24/2024 1:00 PM [employer] [employer] CONSULTANT Office Visit [facility] [address] [place] [phone] Olga Bueno PA 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 factor (HCC) (Primary Dx); High risk medications (not anticoagulants) long-term use; Osteoarthritis of spine with radiculopathy, lumbar region; Age-related osteoporosis without current pathological fracture from Last 3 Months Immunizations Immunization Administration Dates Next Due Influenza, Split 08/10/2013 Influenza, Trivalent, Adjuva nted, Intramuscular 09/08/2018 Influenza, Trivalent, High D ose, Split, Preservative Free, Intramuscular 09/21/2019,09/08/2018,09/18/2017 Influenza, Trivalent, IM (MDV) 09/11/2017,2014,08/05/2014 Pneumococcal Conjugate PCV 13 08/15/2015 Pneumococcal Polysaccharide PPV23 01/20/2017 Surgical History Surgery Date Site/Laterality Comments OTHER SURGICAL HISTORY chronic back pain: L4 - L5 fusion SINUS SURGERY 11/17/2002 - 11/16/2003 sinus surgery HERNIA REPAIR Hernia repair CHOLECYSTECTOMY 11/17/2004 - 11/16/2005 Cholecystectomy CATARACT EXTRACTION Cataract extraction OTHER SURGICAL HISTORY cardiacn stent CARDIAC SURGERY CARDIAC CATHETERIZATION SPINAL FUSION Medical History Medical History Date Comments Hx Other Medical chronic back pa in Diabetes mellitus ([facility]) Diabetes mellitus; Comments: [facility] 01/24/2016 - Hypertension Hypertension Hyperlipidemia Hyperlipidemia; Comments: [facility] 01/24/2016 - Gastroesophageal reflux disease GERD Depression Depression Rheumatoid arthritis ([facility]) Rheum atoid arthritis; Comments: [facility] 01/24/2016 - Anxiety disorder Anxiety Diabetic neuropathy ([facility]) Diabet ic neuropathy; Comments: [facility] 01/24/2016 - Benign prostatic hyperplasia BPH - Benign prostatic hypertrophy; Comments: [facility] 01/24/2016 - History of spinal surgery H/O Sp inal surgery; Comments: [facility] 01/24/2016 - Cancer ([facility]) Obesity Family History Medical History Relation Name Comments Coronary artery disease Brother Mary Kay nary artery disease, premature; Asthma Father Asthma; Cancer Father Coronary artery disease Father Mary Kay nary artery disease; Diabetes Father Diabetes mellit us; Heart attack Father Myocardial infa rction; Heart disease Father Hypertension Father Alzheimer's disease Mother Alzheime r's disease; Dementia Mother dementia; Cause of : dementia Relation Name Status Comments Brother Father Mother (Age 90) Social History Tobacco Use Types Packs/Day Years Used Date Smoking Tobacco: Every Day Pipe Last attempted to quit: 02/22/1989 Smokeless Tobacco: Former Tobacco Cessation:Ready to Q uit: No; Counseling Given: Yes Comments:Quit cigarettes, smoking pipe currently Alcohol Use Standard Drinks/Week Comments Yes 1 (1 standard drink = 0.6 oz pur e alcohol) Sex and Gender Information Value Date Recorded Sex Assigned at Not on file Legal Sex Male 3:50 PM [employer] [facility] CONSULTANT Gender Identity Not on file Sexual Orientation Not on file Occupation Industry Job Start Date Job End Date Retired Not on file Not on file Not on file Obstetrics History Last Filed Vital Signs Vital Sign Reading Time Taken Comments Blood Pressure 126/60 12/24/2024 12:46 PM [facility] [employer] CONSULTANT Pulse 115 12/24/2024 12:46 PM [employer] CONSULTANT Temperature 36.7 C (98 F) 04/15/2019 1:35 PM CDT Respiratory Rate 16 04/15/2019 3:39 PM CDT Oxygen Saturation 93% 12/24/2024 12: 46 PM [employer] [employer] CONSULTANT Inhaled Oxygen Concentration - - Weight 122.6 kg (270 lb 3.2 oz) 025 12:46 PM [employer] CONSULTANT Height 180.3 cm (5' 11 ) 12/24/2024 12: 46 PM [employer] [employer] CONSULTANT Body Mass Index 37.69 12/24/2024 12:46 PM [employer]LE [employer]P CONSULTANT Plan of Treatment Health Maintenance Due Date Last Done Comments Albumin Creatinine Ratio, Urine 1945 Depression Screening 1945 Dilated Eye Exam 1945 Foot Exam 1945 DTaP/Tdap/Td Vaccine (1 - Tdap) 1956 Hepatitis B Screening 1963 Zoster Vaccine (1 of 2) 1964 Abdominal Aortic Aneurysm (A AA) Screen 2010 Well Visit 65+ 2010 Fall Risk Assessment 04/15/2020 04/15/2019, 03/24/20 Lipid Panel 01/04/2021 01/04/2020, 05/18, 05/18/2019, Additional history exists Hemoglobin A1C 06/10/2022 12/11/2021, 12/19, 08/05/2014 Influenza Vaccine (#1) 2024 0, 08/17/2020, 09/21/2019, Additional history exists eGFR 12/24/2025 12/24/2024, 05/2024, 06/22/2024, Additional history exists Pneumococcal vaccine 65+ Completed 01/20/2017, 07/19 Hepatitis C Screening Completed 11/03/2018 Goals Goal Patient Goal Type Associated Problems Recent Progress Patient-Stated? Author CCM Chronic Pain Care Plan Chronic Care Management No Tiera Eddy RN Note: Problem: Chronic Pain Goals: 1. Minimize further functional decline 2. Maximize quality of life 3. Control pain Strategies: - Activity/exercise program recommendation - Conservative stepwise pain medicine strategy with multi-disciplinary approach - Recommend healthy lifestyle strategies and compensatory methods as needed Reduce the likelihood of falling Lifestyle No Tiera Eddy RN Note: Below are four things you can do to prevent falls: 1. Begin an exercise program to improve your leg strength & balance 2. Ask your doctor or pharmacist to review your medicines 3. Get annual eye check-ups & update your eyeglasses 4. Make your home safer by: Removing clutter & tripping hazards Putting railings on all stairs & adding grab bars in the bathroom Having good lighting, especially on stairs Contact your local community or senior center for information on exercise, fall prevention programs, or options for improving home safety. Medical Devices Implanted Type Area Card Checker Device Identifier Shelf Expiration Date Model / Serial / Lot Stents Heart Description:cardiac stents Hardware Spine Lumbar Description:lumbar hardware Procedures Procedure Name Priority Date/Time Associated Diagnosis Comments ERYTHROCYTE SEDIMENTATION RATE Routine 12/24/2024 1:20 PM [employer] CONSULTANT 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 factor (HCC) High risk medications (not anticoagulants) long-term use CRP (ACUTE PHASE) Routine 12/24/2024 1:2 0 PM [employer] CONSULTANT 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 factor (HCC) High risk medications (not anticoagulants) long-term use COMPREHENSIVE METABOLIC PANEL Routine 12/24/2024 1:20 PM [employer]ACLE [employer] CONSULTANT 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 factor (HCC) High risk medications (not anticoagulants) long-term use CBC WITH AUTO DIFFERENTIAL Routine 12/24/2024 1:20 PM [employer]LE [employer] CONSULTANT 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 factor (HCC) High risk medications (not anticoagulants) long-term use LIPID PANEL Routine 01/04/2020 11:48 AM [employer]ACLE ASCP CONSULTANT HEPATITIS PANEL, ACUTE Routine 8 11:17 AM ORACLE ASCP CONSULTANT HEMOGLOBIN A1C Routine 08/05/2014 3:33 PM CDT from Last 3 Months or Most Recently Relevant to Health Maintenance Results * (ABNORMAL) CBC with auto differential (12/24/2024 1:20 PM ORACLE ASCP CONSULTANT) [facility] WBC 5.4 3.8 - 10.8 Thousand/u L [facility] RBC, POC 4.60 4.20 - 5.80 Million/uL [facility] Hgb 13.8 13.2 - 17.1 g/dL [facility] Hct 43.0 38.5 - 50.0 % [facility] MCV 93.5 80.0 - 100.0 fL [facility] MCH 30.0 27.0 - 33.0 pg [facility] MCHC 32.1 32.0 - 36.0 g/dL [facility] Comment: For adults, a slight decrease in the calculated MCHC value (in the range of 30 to 32 g/dL) is most likely not clinically significant; however, it should be interpreted with caution in correlation with other red cell parameters and the patient's clinical condition. Rdw 16.9(H) 11.0 - 15.0 % [facility] Platelets 248 140 - 400 Thousand/u L [facility] MPV 10.4 7.5 - 12.5 fL [facility] Neutrophils, abs 3,839 1,500 - 7,800 cells/uL [facility] Lymphocytes, abs 783(L) 850 - 3,900 cells/uL [facility] Monocyte abs 616 200 - 950 cells/uL [facility] Eosinophils, abs 130 15 - 500 cells/uL [facility] Basophils, abs 32 0 - 200 cells/uL [facility] Neutrophils 71.1 % [facility] Lymphocyte pct 14.5 % [facility] Monocytes 11.4 % [facility] Eosinophils 2.4 % [facility] Basophils 0.6 % [facility] Blood 12/24/2024 1:20 PM [employer]LE ASC[employer] CONSULTANT 12/24/2024 1:21 PM ORACLE ASCP CONSULTANT [address] LAB BLOOD ORDERABLES Fin al Result Performing Organization Address [facility] de Phone Number [facility] [address] [place] [address] * (ABNORMAL) Erythrocyte sedimentation rate (12/24/2024 1:20 PM ORACLE ASCP CONSULTANT) Erythrocyte sedimentation rate 22(H) < OR = 20 mm/h [facility] Blood 12/24/2024 1:20 PM ORACLE ASCP CONSULTANT 12/24/2024 1:21 PM ORACLE ASCP CONSULTANT [address] LAB BLOOD ORDERABLES Fin al Result Performing Organization Address [facility] de Phone Number [facility] [address] [place] [address] * CRP (acute phase) (12/24/2024 1:20 PM ORACLE ASCP CONSULTANT) C-RP 6.5 <8.0 mg/L [facility] Blood 12/24/2024 1:20 PM ORACLE ASCP CONSULTANT 12/24/2024 1:21 PM ORACLE ASCP CONSULTANT [address] LAB BLOOD ORDERABLES Fin al Result Performing Organization Address [facility] Co de Phone Number [facility] [address] [facility] [place] [address] * (ABNORMAL) Comprehensive metabolic panel (12/24/2024 1:20 PM ORACLE ASCP CONSULTANT) [facility] Glucose 96 65 - 99 mg/dL [facility] Comment: Fasting reference interval BUN 22 7 - 25 mg/dL [facility] Creatinine 1.30(H) 0.70 - 1.28 mg/dL [facility] eGFR 56(L) > OR = 60 mL/min/1.7 3m2 [facility] BUN/creat ratio 17 6 - 22 (calc) [facility] Sodium 140 135 - 146 mmol/L [facility] Potassium, pl 4.4 3.5 - 5.3 mmol/L [facility] Chloride 101 98 - 110 mmol/L [facility] CO2 31 20 - 32 mmol/L [facility] Calcium 9.2 8.6 - 10.3 mg/dL [facility] Protein, sr 6.2 6.1 - 8.1 g/dL [facility] Albumin 4.0 3.6 - 5.1 g/dL [facility] GLOBULIN 2.2 1.9 - 3.7 g/dL (calc) [facility] Alb/glob ratio 1.8 1.0 - 2.5 (calc) [facility] Bilirubin, total 0.7 0.2 - 1.2 mg/dL [facility] Alk phos 81 35 - 144 U/L [facility] AST 17 10 - 35 U/L [facility] ALT (SGPT) 19 9 - 46 U/L [facility] Blood 12/24/2024 1:20 PM ORACLE ASCP CONSULTANT 12/24/2024 1:21 PM ORACLE ASCP CONSULTANT us [address] LAB BLOOD ORDERABLES Fin al Result [facility] [address] [facility] [place] [address] * (ABNORMAL) Lipid panel (01/04/2020 11:48 AM ORACLE ASCP CONSULTANT) Cholesterol 155 <200 mg/dL [facility] HDL 50 > OR = 40 mg/dL [facility] Triglycerides 355(H) <150 mg/dL [facility] Comment: If a non-fasting specimen was collected, consider repeat triglyceride testing on a fasting specimen if clinically indicated. Darshan et al. J. of Clin. Lipidol. 2015;9:129-169. LDL 62 mg/dL (calc) [facility] Comment: Reference range: <100 Desirable range <100 mg/dL for primary prevention; <70 mg/dL for patients with CHD or diabetic patients with > or = 2 CHD risk factors. LDL-C is now calculated using the Girma-Rachel calculation, which is a validated novel method providing better accuracy than the Friedewald equation in the estimation of LDL-C. Girma SS et al. GINA. 2013;310(19): 5147-8447 (http://education.[employer]/faq/IUR284) Chol/HDL ratio 3.1 <5.0 (calc) [facility] Non-HDL, (LDL+VLDL) 105 <130 mg/dL (calc) [facility] Comment: For patients with diabetes plus 1 major ASCVD risk factor, treating to a non-HDL-C goal of <100 mg/dL (LDL-C of <70 mg/dL) is considered a therapeutic option. 01/04/2020 11:4 8 AM [facility]ACLE ASCP CONSULTANT 01/04/2020 11:49 AM ORACLE ASCP CONSULTANT Narrative Resulting Agency Comment Performing Organization Information: Site ID: [place] Name: [facility] Address: [address] [address] Director: Angie Vaca D.O., MPH us [address] LAB BLOOD ORDERABLES Fin al Result [facility] [place], [place] * Hepatitis panel, acute (11/03/2018 11:17 AM [facility] CONSULTANT) Pathologist [facility] Hep A IgM NON-REACTI VE NON-REACTI VE [facility] [place] HepBsAg NON-REACTI VE NON-REACTI VE [facility] [place] Hep B core IgM NON-REACTI VE NON-REACTI VE [facility] [place] Hep C Ab NON-REACTI VE NON-REACTI VE [facility] [place] SIGNAL TO CUT-OFF 0.02 <1.00 [facility] [place] 11/03/2018 11:1 7 AM [facility] CONSULTANT 11/03/2018 11:18 AM [facility] CONSULTANT Narrative Resulting Agency Comment Performing Organization Information: Site ID: [place] Name: [facility] Address: [id number] [place] [id number] Director: Angie Vaca D.O., ANGIE us Master Henley III, MD LAB MICROBIOLOGY - GENERAL ORDERABLES Final Result Performing Organization Address [facility] Co de Phone Number [facility] [place] * (ABNORMAL) Hemoglobin A1c (08/05/2014 3:33 PM CDT) Hgb A1C 8.8(H) <5.7 % of total Hgb [facility] Comment: According to ADA guidelines, hemoglobin A1c <7.0% represents optimal control in non- diabetic patients. Different metrics may apply to specific patient populations. Standards of Medical Care in Diabetes-2013. Diabetes Care. 2013;36:s11-s66 For the purpose of screening for the presence of diabetes <5.7% Consistent with the absence of diabetes 5.7-6.4% Consistent with increased risk for diabetes (prediabetes) >or=6.5% Consistent with diabetes This assay result is consistent with diabetes mellitus. Currently, no consensus exists for use of hemoglobin A1c for diagnosis of diabetes for children. Test performed at [employer] [facility] [employer] [address] [place] [address] Director: ANGIE VACA DO,MPH 08/05/2014 3:[address] LAB BLOOD ORDERABLES Fin al Result Performing Organization Address City/[facility]/ZIP Co de Phone Number [facility] RES[facility] from Last 3 Months or Most Recently Relevant to Health Maintenance Insurance MEDICARE MEDICARE [facility] MEDICARE [facility] Care Teams Materials Recycler Relationship Specialty Start Date End Date Eric Pretty MD [address] [facility] [address] [facility] [place], [place] [id number] PCP - General Internal Medicine 01/28/18 Dominic Young MD [address] [facility] [address] [place] [address] Consulting Physician Cardiology 01/04/20 Carlos Hernandez MD [address] [place] [address] Consulting Physician Rheumatology 01/27/24
--- OUTSIDE RECORDS SUMMARY | 2025-02-16 10:34 | XMS_ITS | Continuity of Care Document ---
Author Organization [facility] Address [address] [place] [address] Phone Care Team Providers Care [place] Name Role Phone Chance Monroy Unavailable Unavailable Procedures Procedure Date Visual Field Examination(s) Office/outpatient Visit, Est Corneal Pachymetry Fundus Photography W/ Report Eye Exam, New Patient Advance Directives Directive Yes / No Effective Date File Name No Information Encounters Encounter Description Practice Location Reason(s) For Visit Diagnoses Date Provider Providers Copied on Encounter [facility], [address] [place] [address] [address], [place], [place], [id number], tel:[phone] [facility] No Information [address], [place], [address], . tel:[phone] Referring Provider: Alondra Thomas [address], [place], [address]. tel:[phone] Office/outpat ient Visit, Est [facility], [address] [place] [address] [address], [place], [place], [id number], tel:[phone] [facility] No Information [address], [place], [address], [place]. tel:[phone] Referring Provider: Chance Wagner, [address], [place], [address]. tel:[phone] [facility], [address], [place], [place], [id number], [place] tel:[phone] [facility] No Information [address] [facility] , [address], [place], [address], [place]. tel:[phone] Family History Family Member Type Diagnosis Age At Onset No Information Payers Payer name Insurance type Covered alliance party ID Authoriza tion(s) No Information Social History Type Description Quantity Date Captured Comments Sex Male Smoking Status No Information Chief Complaint And Reason For Visit No Information Reason For Referral Reason For Referral No Information History Of Present Illness Encounter Date Complaint History Of Prese nt Illness No Information Functional Status Date Functional Assessmen t No Information Instructions Date Instruction Additional Infor mation No Information Assessments Type Assessment Date No Information Patient Care Teams Name Effective Dates (start - stop) Status Members No Information
--- OUTSIDE RECORDS SUMMARY | 2025-02-16 10:34 | XMS_ITS | Encounter Summary ---
Author Organization [facility] Address [address] [place] [address] Care Team Providers Care Desk Assistant Name Role Phone Eric Pretty MD Primary Care Provider + Encounter Details Date Type Department Care Team (Late Contact Info) Description 01/28/2025 Results Follow-Up [facility]3] Heart and Vascular At [address] [place] [address] Olga Stanley RN CBC WITH DIFFERENTIAL, BASIC METABOLIC PANEL, PROTIME-INR Social History Tobacco Use Types Packs/Day Years Used Date Smoking Tobacco: Every Day Pipe Smokeless Tobacco: Never Comments:Smokes a pipe 6-7x/ day Alcohol Use Standard Drinks/Week Comments No 0 (1 standard drink = 0.6 oz pur e alcohol) once a month a beer Food Insecurity Answer Date Recorded Social/Environmental Concerns No concerns Transportation Needs Answer Date Record ed Social/Environmental Concerns No concerns Housing Stability Answer Date Recorded Social/Environmental Concerns No concerns Utility Needs Answer Date Recorded Social/Environmental Concerns No concerns Sex and Gender Information Value Date Recorded Sex Assigned at Not on file 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 Gender Identity Not on file Sexual Orientation Not on file documented as of this encounter Plan of Treatment Upcoming Encounters Date Type Department Care Team (Late st Contact Info) Description 03/04/2025 1:15 PM CDT Office Visit [facility] AT [place] [address] [facility] [place] [address] Tani Patel MD [facility] [address] [facility] [address] [place] [address] 05/06/2025 12:00 PM CDT Procedure visit [facility] AT [place] [address] [facility] [address] [place] [address] documented as of this encounter Visit Diagnoses Not on filedocumented in this encounter Care Teams Desk Assistant Relationship Specialty Start Date End Date Eric Pretty MD [address] [place] [id number] PCP - General Internal Medicine 11/24/19 documented as of this encounter
--- OUTSIDE RECORDS SUMMARY | 2025-02-16 10:34 | XMS_ITS | Referral Summary ---
Author Organization [facility] [address] Address [address] [place] [address] Care Team Providers Care Blade Boner Name Role Phone Eric Pretty MD Primary Care Provider [phone] Dominic Young MD Unavailable [phone] Carlos Hernandez MD Unavailable [phone] Encounters Date Type Department Care Team Description 12/24/2024 1:00 PM PRODUCTION CONTROL COORDINATING CLERK Office Visit [address] [address] Olga Bueno PA 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 factor (HCC) (Primary Dx); High risk medications (not anticoagulants) long-term use; Osteoarthritis of spine with radiculopathy, lumbar region; Age-related osteoporosis without current pathological fracture from Last 3 Months Allergies Active Allergy Reactions Criticality Noted Date [...] S4 Assessment & Plan (12/24/2024 12:49 PM PRODUCTION CONTROL COORDINATING CLERK): BMD 06/09/24: LFN 0.761, tscore -1.2 Total [...] occurs. Assessment & Plan (09/23/2024 2:49 PM PRODUCTION CONTROL COORDINATING CLERK): BMD 06/09/24: LFN 0.761, tscore -1.2 Total [...] candidate Assessment & Plan (09/23/2024 1:14 PM PRODUCTION CONTROL COORDINATING CLERK): Xrays 2016: Moderate osteoarthritis of the acromioclavicular [...] walks. Assessment & Plan (12/12/2022 3:07 PM PRODUCTION CONTROL COORDINATING CLERK): R shoulder hurting for the past 2-3 days. May have been triggered by carrying in grocery bags. Hx rotator cuff tears per pt's report. Recommend heat/ice, rest. Will order PT. Consider seeing ortho if not improving Atherosclerotic cardiovascular disease Assessment & Plan (11/12/2022 3:08 PM PRODUCTION CONTROL COORDINATING CLERK): S/p multiple MIs/cardiac arrest, sick sinus, CHF. Has pacemaker. Corn Sheller Dr. Young. On eliquis and clopidogrel History of DVT of lower extremity 11/12/2022 History of prostate cancer 11/12/2022 Overview (11/12/2022): Treated with radiation in 2017 Chronic pain syndrome 12/16/2021 Type 2 diabetes mellitus wit h diabetic neuropathy, unspecified 11/17/2020 Chronic pain of right knee 06/08/2019 Assessment & Plan (09/23/2024 1:05 PM PRODUCTION CONTROL COORDINATING CLERK): Mild OA on xray from 06/04. Had [...] benefit. Assessment & Plan (01/04/2020 12:03 PM PRODUCTION CONTROL COORDINATING CLERK): Mild OA on xray from 06/04. Had cortisone shots years ago but they spiked his sugars. Had zilretta on 10/29/19 as this formulation causes less systemic steroid effect than regular triamcinolone injection. However, he reported no benefit. Assessment & Plan (10/26/2019 2:15 PM PRODUCTION CONTROL COORDINATING CLERK): Mild OA on xray from 06/04. Had [...] mgmt: [facility] (Lola Cerna) in [facility] Assessment & Plan (12/24/2024 2:28 PM PRODUCTION CONTROL COORDINATING CLERK): 3 prior back surgeries and still having a lot of pain. Decided against pursuing any more surgery. Has been to pain mgmt in [facility]. Continues to take gabapentin for neuropathic pain. Assessment & Plan (09/23/2024 1:05 PM PRODUCTION CONTROL COORDINATING CLERK): 3 prior back surgeries and still having a lot of pain. Decided against pursuing any more surgery. Has been to pain mgmt in [facility]. Continues to take gabapentin for neuropathic pain. Assessment & Plan (06/22/2024 3:21 PM CDT): 3 prior back surgeries and still having a lot of pain. Decided against pursuing any more surgery. Has been to pain mgmt in [facility]. Continues to take gabapentin for neuropathic pain. Assessment & Plan (03/16/2024 4:37 PM CDT): 3 prior back surgeries and still having a lot of pain. Decided against pursuing any more surgery. Has been to pain mgmt in [facility]. Continues to take gabapentin for neuropathic pain. [...] surgery. Has been to pain mgmt in [facility]. Continues to take gabapentin for neuropathic pain Assessment & Plan (07/28/2023 3:39 PM CDT): 3 prior back surgeries and still having a lot of pain. Decided against pursuing any more surgery. Has been to pain mgmt in [facility]. Continues to take gabapentin for neuropathic pain Assessment & Plan (05/27/2023 4:30 PM CDT): 3 prior back surgeries and still having a lot of pain. Thinking about going back to see nsg for opinion if there is anything else he can do. Has been to pain mgmt in [facility]. Continues to take gabapentin for neuropathic pain Assessment & Plan (11/12/2022 3:05 PM PRODUCTION CONTROL COORDINATING CLERK): 3 prior back surgeries and he does not want to have any additional surgery. Sees pain mgmt in [facility]. Discussed pain stimulator but he deferred for now. Continues to take gabapentin for neuropathic pain Assessment & Plan (01/04/2020 12:04 PM PRODUCTION CONTROL COORDINATING CLERK): No surgery planned. Continue to f/u with pcp and pain mgmt. Encouraged to continue water exercise. Declines PT. Discuss weight loss treatments with pcp. He used to be on duloxetine for mood and chronic pain and can't remember why he stopped. He would be willing to restart this now. Begin 30mg daily. Assessment & Plan (10/26/2019 2:16 PM PRODUCTION CONTROL COORDINATING CLERK): No surgery planned. Continue to f/u with [...] & Plan (08/21/2018 2:15 PM CDT): Saw senior design engineer who put him back on midodrine. Just started this today. Had episode of lightheadedness coming into the office today, better with sitting. Also describes vertigo sometimes and I suggested this might represent a different problem, discuss with pcp. High risk medications (not anticoagulants) long- term use 01/29/2018 Overview (08/10/2019): Neg quantiferon 12/18 Neg hepatitis 12/18 Assessment & Plan (12/24/2024 12:50 PM PRODUCTION CONTROL COORDINATING CLERK): Neg quantiferon 12/18 Neg hepatitis 12/18 utd [id number], [id number], yearly flu shot. Had shingrix Had RSV vaccine Had original COVID vaccine series but not additional boosters Assessment & Plan (09/23/2024 1:19 PM PRODUCTION CONTROL COORDINATING CLERK): Neg quantiferon 12/18 Neg hepatitis 12/18 utd labrhqq57, gxikrxyow39, yearly flu shot. Had shingrix Had RSV vaccine Had original COVID vaccine series but not additional boosters Assessment & Plan (06/22/2024 1:27 PM CDT): Neg quantiferon 12/18 Neg hepatitis 12/18 utd cvtkjor41, enwhhsyne95, yearly flu shot. Recommend shingrix, COVID booster Assessment & Plan (03/16/2024 2:20 PM CDT): Neg quantiferon 12/18 Neg hepatitis 12/18 utd , , yearly flu shot. Recommend shingrix, COVID booster Assessment & Plan (01/27/2024 1:06 PM CDT): Neg quantiferon 18 Neg hepatitis 12/18 utd [id number], vvkgwadzs58, yearly flu shot. Recommend shingrix, COVID booster Assessment & Plan (10/28/2023 3:46 PM PRODUCTION CONTROL COORDINATING CLERK): Neg quantiferon 12/18 Neg hepatitis 12/18 utd zkyhxvj19, ijssgagzn01, yearly flu shot. Recommend shingrix, COVID booster Assessment & Plan (07/28/2023 2:25 PM CDT): Neg quantiferon 12/18 Neg hepatitis 12/18 utd bhupvze41, ouvscexky77, yearly flu shot. Recommend shingrix, COVID booster Assessment & Plan (05/27/2023 1:55 PM CDT): Neg quantiferon 12/18 Neg hepatitis 12/18 utd uycqdcs94, oxtxgqrty41, flu shot. Recommend shingrix, COVID boosters if not done Assessment & Plan (04/17/2023 4:33 PM CDT): Neg quantiferon 12/18 Neg hepatitis 12/18 utd [id number], izrnnryst24, flu shot. Recommend shingrix, COVID boosters if not done Assessment & Plan (12/12/2022 3:06 PM PRODUCTION CONTROL COORDINATING CLERK): Neg quantiferon 12/18 Neg hepatitis 12/18 utd vthamgr12, gwpbavqws33, flu shot. Recommend shingrix, COVID boosters if not done Will advise Evusheld if he goes back on Rituxan in the future Assessment & Plan (11/12/2022 3:05 PM PRODUCTION CONTROL COORDINATING CLERK): Neg quantiferon 12/18 Neg hepatitis 12/18 utd nknphyw69, hexnfqwvc91, flu shot. Recommend shingrix, COVID boosters if not done Will advise Evusheld if he goes back on Rituxan in the future Assessment & Plan (01/04/2020 11:23 AM PRODUCTION CONTROL COORDINATING CLERK): Neg quantiferon 12/18 Neg hepatitis 12/18 utd tvmkajf45, cjaabdovc17, flu shot. Recommend shingrix Assessment & Plan (10/26/2019 11:19 AM PRODUCTION CONTROL COORDINATING CLERK): Neg quantiferon 12/18 Neg hepatitis 12/18 utd hhslomp50, palzzhlmj61, flu shot. Recommend shingrix Assessment & Plan (08/10/2019 11:37 AM CDT): Neg quantiferon 12/18 Neg hepatitis 12/18 Assessment & Plan (06/08/2019 12:09 PM CDT): Neg quantiferon 12/18 Neg hepatitis 12/18 Assessment & Plan (03/26/2019 8:13 AM CDT): Neg quantiferon 12/18 Neg hepatitis 12/18 Assessment & Plan (12/24/2018 9:59 PM PRODUCTION CONTROL COORDINATING CLERK): Neg quantiferon 12/18 Neg hepatitis 12/18 Syncope and collapse 08/28/2017 Orthostasis 08/28/2017 Coronary artery disease invo lving [place] coronary artery of [place] heart with angina pectoris 08/28/2017 Assessment & Plan (01/04/2020 12:04 PM PRODUCTION CONTROL COORDINATING CLERK): Pt had abnormal stress test followed by cardiac cath, stenting. Symptoms currently improved. senior design engineer Dr. Young. Requested lipid panel so will [...] Overview (02/21/2017): Seasonal allergies Rheumatoid arthritis of [facility] sites with negative rheumatoid factor 05/06/2011 Overview (04/17/2023): Failed humira, remicade, orenica, and actemra 1st Rituxan series: 11/23/18, 12/08/18 2nd series 06/14/19, 07/01/19 Avoid DRISS due to hx DVT, CVD Assessment & Plan (12/24/2024 2:28 PM PRODUCTION CONTROL COORDINATING CLERK): cdai = 33, high Was not seen [...] needed Assessment & Plan (09/23/2024 2:48 PM PRODUCTION CONTROL COORDINATING CLERK): cdai = 17, moderate Was not seen [...] weeks Assessment & Plan (10/28/2023 3:45 PM PRODUCTION CONTROL COORDINATING CLERK): cdai = 10, low, improving Was not [...] month Assessment & Plan (12/12/2022 3:05 PM PRODUCTION CONTROL COORDINATING CLERK): cdai = 27, high Last seen in [...] prednisone orally. Labs today. Seen with Dr. Budd. Lane/destiny 1 month Assessment & Plan (11/12/2022 3:10 PM PRODUCTION CONTROL COORDINATING CLERK): cdai = 32, high Last seen in [...] IM given. Labs today. Seen with Dr. Budd. Lane/u 1 month Assessment & Plan (01/04/2020 11:21 AM PRODUCTION CONTROL COORDINATING CLERK): cdai = 26, high Pt received first [...] months Assessment & Plan (10/26/2019 2:17 PM PRODUCTION CONTROL COORDINATING CLERK): cdai = 30 Pt received first Rituxan [...] today. Assessment & Plan (12/24/2018 9:58 PM PRODUCTION CONTROL COORDINATING CLERK): cdai = 13, low-moderate Pt received first [...] doing. Assessment & Plan (10/26/2018 9:41 AM PRODUCTION CONTROL COORDINATING CLERK): High cdai. Patient has been having more [...] Will cont to monitor. Lumbar radiculopathy 05/06/2011 Immunizations Immunization Administration Dates Next Due Influenza, Split 08/10/2013 Influenza, Trivalent, Adjuva nted, Intramuscular 09/08/2018 Influenza, Trivalent, High D ose, Split, Preservative Free, Intramuscular 09/21/2019,09/08/2018,09/18/2017 Influenza, Trivalent, IM (MDV) 09/11/2017,2014,08/05/2014 Pneumococcal Conjugate PCV 13 08/15/2015 Pneumococcal Polysaccharide PPV23 01/20/2017 Social History Tobacco Use Types Packs/Day Years [...] on file Legal Sex Male 3:50 PM PRODUCTION CONTROL COORDINATING CLERK Gender Identity Not on file Sexual Orientation Not on file Occupation Industry Job Start Date Job End Date Retired Not on file Not on file Not on file Last Filed Vital Signs Vital Sign Reading Time Taken Comments Blood Pressure 126/60 12/24/2024 12:46 PM PRODUCTION CONTROL COORDINATING CLERK Pulse 115 12/24/2024 12:46 PM PRODUCTION CONTROL COORDINATING CLERK Temperature 36.7 C (98 F) 04/15/2019 1:35 PM CDT Respiratory Rate 16 04/15/2019 3:39 PM CDT Oxygen Saturation 93% 12/24/2024 12: 46 PM PRODUCTION CONTROL COORDINATING CLERK Inhaled Oxygen Concentration - - Weight 122.6 kg (270 lb 3.2 oz) 025 12:46 PM PRODUCTION CONTROL COORDINATING CLERK Height 180.3 cm (5' 11 ) 12/24/2024 12: 46 PM PRODUCTION CONTROL COORDINATING CLERK Body Mass Index 37.69 12/24/2024 12:46 PM PRODUCTION CONTROL COORDINATING CLERK Plan of Treatment Not on file Goals Goal Patient Goal Type Associated Problems [...] on stairs Contact your local community or [facility] for information on exercise, fall prevention programs, or options for improving home safety. 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 factor (HCC) High risk medications (not anticoagulants) long-term use COMPREHENSIVE METABOLIC PANEL Routine 12/24/2024 1:20 PM PRODUCTION CONTROL COORDINATING CLERK 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 factor (HCC) High risk medications (not anticoagulants) long-term use CBC WITH AUTO DIFFERENTIAL Routine 12/24/2024 1:20 PM PRODUCTION CONTROL COORDINATING CLERK 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 factor (HCC) High risk medications (not anticoagulants) long-term use LIPID PANEL Routine 01/04/2020 11:48 AM PRODUCTION CONTROL COORDINATING CLERK HEPATITIS PANEL, ACUTE Routine 8 11:17 AM PRODUCTION CONTROL COORDINATING CLERK HEMOGLOBIN A1C Routine 08/05/2014 3:33 PM CDT from Last 3 Months or Most Recently Relevant to Health Maintenance Results * (ABNORMAL) CBC with auto differential (12/24/2024 1:20 PM PRODUCTION CONTROL COORDINATING CLERK) Pathologist [facility] WBC 5.4 3.8 - 10.8 Thousand/u L [...] [facility] Blood 12/24/2024 1:20 PM PRODUCTION CONTROL COORDINATING CLERK 12/24/2024 1:21 PM PRODUCTION CONTROL COORDINATING CLERK [facility] BLOOD ORDERABLES Fin al Result Performing Organization Address [facility] Co de Phone Number [facility] [address] [place] [address] * (ABNORMAL) Erythrocyte sedimentation rate (12/24/2024 1:20 PM PRODUCTION CONTROL COORDINATING CLERK) Erythrocyte sedimentation rate 22(H) < OR = 20 mm/h [facility] Blood 12/24/2024 1:20 PM PRODUCTION CONTROL COORDINATING CLERK 12/24/2024 1:21 PM PRODUCTION CONTROL COORDINATING CLERK [facility] LAB BLOOD ORDERABLES Fin al Result Performing Organization Address [facility] de Phone Number [facility] [address] [place] [address] * CRP (acute phase) (12/24/2024 1:20 PM PRODUCTION CONTROL COORDINATING CLERK) C-RP 6.5 <8.0 mg/L [facility] Blood 12/24/2024 1:20 PM PRODUCTION CONTROL COORDINATING CLERK 12/24/2024 1:21 PM PRODUCTION CONTROL COORDINATING CLERK [facility] LAB BLOOD ORDERABLES Fin al Result Performing Organization Address [facility] de Phone Number [facility] [address] [place] [address] * (ABNORMAL) Comprehensive metabolic panel (12/24/2024 1:20 PM PRODUCTION CONTROL COORDINATING CLERK) Glucose 96 65 - 99 mg/dL [facility] [...] [facility] Blood 12/24/2024 1:20 PM PRODUCTION CONTROL COORDINATING CLERK 12/24/2024 1:21 PM PRODUCTION CONTROL COORDINATING CLERK us [address] LAB BLOOD ORDERABLES Fin al Result [facility] [address] [place] [address] * (ABNORMAL) Lipid panel (01/04/2020 11:48 AM PRODUCTION CONTROL COORDINATING CLERK) Cholesterol 155 <200 mg/dL [facility] [place] HDL 50 > OR = 40 mg/dL [facility] [place] Triglycerides 355(H) <150 mg/dL [facility] [place] Comment: If a non-fasting specimen was collected, consider repeat triglyceride testing on a fasting specimen if clinically indicated. Darshan et al. J. of Clin. Lipidol. 2015;9:129-169. LDL 62 mg/dL (calc) [facility] [place] Comment: Reference range: <100 Desirable range <100 mg/dL for primary prevention; <70 mg/dL for patients with CHD or diabetic patients with > or = 2 CHD risk factors. LDL-C is now calculated using the Giram-Ramos calculation, which is a validated novel method providing better accuracy than the Friedewald equation in the estimation of LDL-C. Girma YING et al. GINA. 2013;310(19): 5637-0028 (http://education.[employer]/faq/NWA688) Chol/HDL ratio 3.1 <5.0 (calc) [facility] [place] Non-HDL, (LDL+VLDL) 105 <130 mg/dL (calc) [facility] [place] Comment: For patients with diabetes plus 1 major ASCVD risk factor, treating to a non-HDL-C goal of <100 mg/dL (LDL-C of <70 mg/dL) is considered a therapeutic option. 01/04/2020 11:4 8 AM PRODUCTION CONTROL COORDINATING CLERK 01/04/2020 11:49 AM PRODUCTION CONTROL COORDINATING CLERK Narrative Resulting Agency Comment Performing Organization Information: Site ID: [place] Name: [facility] Address: [address] [place] [address] Director: Angie Vaca D.O., MPH [address] LAB BLOOD ORDERABLES Fin al Result [facility] [place] * Hepatitis panel, acute (11/03/2018 11:17 AM PRODUCTION CONTROL COORDINATING CLERK) Hep A IgM NON-REACTI VE NON-REACTI VE [facility] [place] HepBsAg NON-REACTI VE NON-REACTI VE [facility] [place] Hep B core IgM NON-REACTI VE NON-REACTI VE [facility] [place] Hep C Ab NON-REACTI VE NON-REACTI VE [facility] [place] SIGNAL TO CUT-OFF 0.02 <1.00 [facility] [place] 11/03/2018 11:1 7 AM PRODUCTION CONTROL COORDINATING CLERK 11/03/2018 11:18 AM PRODUCTION CONTROL COORDINATING CLERK Narrative Resulting Agency Comment Performing Organization Information: Site ID: [id number] Name: [facility] Address: [address] [place] [address] Director: Angie Vaca D.O., MPH us Master Henley III, MD LAB MICROBIOLOGY - GENERAL ORDERABLES Final Result Performing Organization Address City/[facility]/ZIP Co de Phone Number [facility] [place], [place] * (ABNORMAL) Hemoglobin A1c (08/05/2014 3:33 [...] of diabetes for children. Test performed at [employer] [facility] [id number] [place] [phone] Director: ANGIE VACA DO,MPH 08/05/2014 3:[address] LAB BLOOD ORDERABLES Fin al Result [facility] HISTORICAL RESULTS from Last 3 Months or Most Recently Relevant to Health [place] [address] MEDICARE MEDICARE [facility] MEDICARE [facility] Care Teams Blade Boner Relationship Specialty Start Date End Date Eric Pretty MD [address] [facility] [address] [place] [address] PCP - General Internal Medicine 01/28/18 Dominic Young MD [address] [facility] [address] [place] [address] Consulting Physician Cardiology 01/04/20 Carlos Hernandez MD [address] [place] [address] Consulting Physician Rheumatology 01/27/24
--- OUTSIDE RECORDS SUMMARY | 2025-02-16 10:34 | XMS_ITS | Encounter Summary ---
Author Organization [facility] Address [address] [place] [address] Care Team Providers Care Muffler Hand Name Role Phone Eric Pretty MD Primary Care Provider + Encounter Details Date Type Department Care Team (Late st Contact Info) Description 01/25/2025 Results Follow-Up [facility] At [address] [place] [address] Olga Stanley RN NM MYOCARD PERF IMAG SPECT MULT Social History Tobacco Use Types Packs/Day Years Used Date Smoking Tobacco: Every Day Pipe Smokeless Tobacco: Never Comments:Smokes a pipe 6-7x/ day Alcohol Use Standard Drinks/Week Comments No 0 (1 standard drink = 0.6 oz pur e alcohol) once a month a beer Sex and Gender Information Value Date Recorded Sex Assigned at Not on file 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 Gender Identity Not on file Sexual Orientation Not on file documented as of this encounter Plan of Treatment Upcoming Encounters Date Type Department Care Team (Late st Contact Info) Description 03/04/2025 1:15 PM CDT Office Visit [facility] AT [address] [place] [address] Tani Patel MD [address] [place] [address] [address] [place] [address] 05/06/2025 12:00 PM CDT Procedure visit [facility] AT [place] [address] [facility] [address] [place] [address] documented as of this encounter Visit Diagnoses Not on filedocumented in this encounter Care Teams Muffler Hand Relationship Specialty Start Date End Date Eric Pretty MD [address] [place] [address] PCP - General Internal Medicine 11/24/19 documented as of this encounter
--- OUTSIDE RECORDS SUMMARY | 2025-02-16 10:34 | XMS_ITS | Clinical Summary ---
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 Gender Identity Not on file Sexual Orientation Not on file Plan of Treatment Health Maintenance Due Date Last Done Comments Hepatitis C 1963 DTaP, Tdap and Td Vaccines ( 1 - Tdap) 1964 Zoster Vaccines (1 of 2) 1995 Annual Medicare Wellness Visit 2010 Pneumococcal Vaccine: 65+ Ye ars (1 of 1 - PCV) 2010 RSV Immunization or 60+ Years (1 - 1-dose 75+ series) 2020 COVID-19 Vaccine ( - 2023-2 5 season) 2024 Meningococcal B Vaccine Aged Out No l onger eligible based on patient's age to complete this topic Meningococcal Vaccine Aged Out No christopher dalia eligible based on patient's age to complete this topic RSV Immunizations Under 20 Months Aged Out No longer eligible based on patient's age to complete this topic Insurance MEDICARE [facility] Care Teams Cotton Buyer Relationship Specialty Start Date End Date Eric Pretty MD [address] - [facility] [address] [place] [address] PCP - General INTERNAL MEDICINE 11/15/19
--- OUTSIDE RECORDS SUMMARY | 2025-02-16 10:36 | XMS_ITS | Clinical Summary ---
Author Organization [employer] Administrative Offices Address [address] [place] [address] Care Team Providers Care Budget Assistant Name Role Phone Erci Pretty MD Primary Care Provider + Allergies Active Allergy Reactions Criticality Noted Date Comments Alprazolam Nausea and Vomiting Low 11/12/2022 Fentanyl Itching Low 01/09/2018 Medications atorvastatin (LIPITOR) 40 mg tablet Take 40 mg by mouth daily. Active gabapentin (NEURONTIN) 300 mg capsule Take 300 mg by mouth 3 times daily. Active pantoprazole (PROTONIX) 40 mg Tablet, Delayed Release (E.C.) Take 40 mg by mouth daily. Active empagliflozin (JARDIANCE) 10 mg tablet Take 25 mg by mouth daily in the morning. Pt taking 25 mg daily Active cholecalciferol , vitamin D3, 1,000 unit Take 25 Units by mouth daily. Active oxyCODONE myristate (XTAMPZA) 13.5 mg capsule,sprinkl e,ER 12hr tmprr Take 13.5 mg by mouth Continuous as needed. Active apixaban (ELIQUIS) 5 mg tablet Take 5 mg by mouth 2 times daily. Active melatonin 5 mg Tablet, Rapid Dissolve Take 1 Tablet (5 mg) by mouth nightly as needed for Insomnia. 022 Active sertraline (ZOLOFT) 100 mg tablet Take 100 mg by mouth daily. Active insulin NPH-regular (NovoLIN 70-30 FlexPen U-100) 100 unit/mL (70-30) pen syringe Inject 25 Units by subcutaneous injection 2 times daily. 25-30units Active insulin human U-100 NPH-regulr 70-30 mix 100 unit/mL subcutaneous susp 80 unit BEDTIME (route: subcutaneous) Active methotrexate (RHEUMATREX) 2.5 mg Tablet Taking 6 tablets once a week Active insulin degludec (Tresiba FlexTouch U-100) 100 unit/mL pen syringe Inject 60 Units by subcutaneous injection one time only. Active insulin lispro (HumaLOG) 100 unit/mL vial Inject 17 Units by subcutaneous injection 4 times daily with meals and at bedtime. Active predniSONE 5 mg tablet Take 5 mg by mouth daily at bedtime. Active HYDROcodone-jaylan taminophen (NORCO) 5-325 mg tablet Take 1 Tablet by mouth every 8 hours as needed for Pain. Active folic acid (FOLVITE) 1 mg tablet Take 1,000 mcg by mouth daily. Active HumuLIN-R U-500, Conc, Kwikpen 500 unit/mL (3 mL) pen Inject 200 Units by subcutaneous injection 3 times daily before meals. INJECT 60 UNITS SUBCUTANEOUSLY BEFORE BREAKFAST, 35 UNITS BEFORE LUNCH, AND 30 UNITS BEFORE DINNER. MAX OF 200 UNITS PER DAY Active Trulicity 0.75 mg/0.5 mL injection Inject 0.75 mg by subcutaneous injection every 7 days. Active nitroglycerin (NITROSTAT) 0.6 mg Tablet, Sublingual DISSOLVE ONE TABLET UNDER THE TONGUE EVERY 5 MINUTES NEEDED FOR CHEST PAIN. DO NOT EXCEED A TOTAL OF 3 DOSES IN 15 MINUTES 30 Tablet 2 Active ferrous sulfate 325 mg (65 mg iron) tablet Take 325 mg by mouth daily. Active clopidogreL (PLAVIX) 75 mg Tablet Take 1 tablet by mouth once daily 90 Tablet 2 Active amiodarone (CORDARONE) 100 mg Tablet Take 1 tablet by mouth once daily 30 Tablet 3 Active sacubitriL-vals jaorn (ENTRESTO) 24-26 mg Tablet Take 1 Tablet by mouth 2 times daily. 200 Tablet 3 Active metoprolol succinate (TOPROL XL) 25 mg Extended Release 24 hour tablet Take 1 Tablet (25 mg) by mouth daily. 90 Tablet 1 025 Active metoprolol succinate (TOPROL XL) 50 mg Extended Release 24 hour tablet Take 1 tablet by mouth once daily 90 Tablet 1 024 2024 Discontinued Active Problems Patient Care Coordination No te Formatting of this note migh t be different from the original. Dr. 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 Had cortisone shots years ago but they spiked his sugars. Had zilretta on 10/29/19 as this formulation causes less systemic steroid effect than regular triamcinolone injection. However, he reported no benefit. Contusion of left lower leg 03/25/2019 Overview (05/30/2021): Last Assessment & Plan: Hit his L lower leg getting into truck about a week ago, had swelling, bruising, and still very tender. Will xray to r/o fx. Osteoarthritis of spine with radiculopathy, lumb ar region 03/25/2019 Overview (05/30/2021): Last Assessment & Plan: No surgery planned. Continue to f/u with pcp and pain mgmt. Encouraged to continue water exercise. Declines PT. Discuss weight loss treatments with pcp. He used to be on duloxetine for mood and chronic pain and can't remember why he stopped. He would be willing to restart this now. Begin 30mg daily. Weakness 02/02/2019 Overview (05/30/2021): Tiredness Last Assessment & Plan: May be due to many issues including uncontrolled DM, RA, and other things. F/u with pcp High risk medications (not anticoagulants) long- term use 01/29/2018 Overview (05/30/2021): Hyperlipidemia associated with type 2 diabetes mellitus Type 2 diabetes mellitus with diabetic neuropathy Neg quantiferon 11/03 Neg hepatitis 11/03 Last Assessment & Plan: Neg quantiferon 11/03 Neg hepatitis 11/03 utd [id number], , flu shot. 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 Just started this today. Had episode of lightheadedness coming into the office today, better with sitting. Also describes vertigo sometimes and I suggested this might represent a different problem, discuss with pcp. Tachy-michael syndrome 08/28/2017 Syncope and collapse 08/28/2017 Coronary artery disease invo lving [facility]ichael ira coronary artery of [facility] heart with angina pectoris 08/28/2017 Overview (05/30/2021): Last Assessment & Plan: Pt had abnormal stress test followed by cardiac cath, stenting. Symptoms currently improved. batch plant supervisor Dr. Young. Requested lipid panel so will add to our labs and send results Abnormal liver enzymes 03/28/2014 Overview (05/30/2021): Elevated liver enzymes Low back pain 08/10/2013 Overview (05/30/2021): Atypical chest pain Low back pain Last Assessment & Plan: Seeing pain mgmt. Has had injections without relief. Pt inquired about CBD oil but we discussed it is not approved and there is limited data to support its use at the present time. Neuropathy 01/04/2013 Overview (05/30/2021): Neuropathy Seasonal allergic rhinitis 01/04/2013 Overview (05/30/2021): Seasonal allergies Rheumatoid arthritis 05/06/2011 Atherosclerosis of coronary artery CAD (coronary artery disease) Acute metabolic encephalopathy Hyperlipidemia GERD (gastroesophageal reflux disease) Atrial flutter Paroxysmal A-fib POONAM (obstructive sleep apnea) History of TIA (transient ischemic attack) and s troke Ischemic cardiomyopathy Delirium Physical debility Advance care planning Encounter for palliative care Situational mixed anxiety and depressive disorde r Resolved Problems Problem Noted Date Diagnosed Date Resolved Date Non-ST elevation myocardial infarction (NSTEMI) 12/16/2021 01/11/2022 Elevated troponin 12/11/2021 01/11/2022 Overview (12/12/2021): Added automatically from request for surgery [id number] Generalized muscle weakness 01/22/2021 05/30/2021 Severe obesity (BMI 35.0-39. 9) with comorbidity 01/22/2021 05/30/2021 Lumbar radiculopathy 05/06/2011 021 C. difficile diarrhea 2020 Asystole 01/11/2022 Dysphagia 01/11/2022 Acute cystitis without hematuria 01/11/2022 Cardiac arrest 01/11/2022 Acute bacterial conjunctivitis of both eyes 01/11/2022 Encounters Date Type Department Care Team Description 01/31/2025 11:40 AM CDT - 01/31/2025 12:21 PM CDT Surgery [facility] Card Decorator [address] [place] [address] Dominic Young MD Left heart cath 01/31/2025 9:01 AM CDT - 01/31/2025 4:40 PM CDT Hospital Encounter [facility] Interventional Care [address] [place] [address] Dominic Young MD Ejection fraction < 50% Discharge Disposition: Home or Self Care 01/28/2025 9:45 AM CDT Procedure visit [facility] EP AT [address] [place] [address] Tachy-michael syndrome (CMS/HCC) (Primary Dx); Pacemaker 01/28/2025 Results Follow-Up [facility] Vascular At [address] [place] [address] Olga Stanley, RN CBC WITH DIFFERENTIAL, BASIC METABOLIC PANEL, PROTIME-INR 01/26/2025 Prep for Surgery [facility] V[facility] At [address] [place] [address] Dominic Young MD Ejection fraction < 50% (Primary Dx); Abnormal cardiovascular stress test 01/26/2025 Telephone [facility] Vascular At [address] [place] [address] Dominic Young MD needs cath 01/25/2025 8:34 AM CDT - 01/25/2025 11:59 PM CDT Hospital Encounter [facility] Nuclear Medicine [address] [place] [address] Dominic Young MD Discharge Disposition: Home or Self Care 01/25/2025 8:33 AM CDT - 01/25/2025 11:59 PM CDT Hospital Encounter [facility] Nuclear Medicine [address] [place] [address] Dominic Young MD Discharge Disposition: Home or Self Care 01/25/2025 Results Follow-Up [facility] Vascular At [address] [place] [address] Olga Stanley RN NM MYOCARD PERF IMAG SPECT MULT 01/24/2025 External Device Data STL ABSTRACTION Provider, Abstract 01/22/2025 External Device Data STL ABSTRACTION Provider, Abstract 01/21/2025 External Device Data STL ABSTRACTION Provider, Abstract 01/20/2025 4:00 PM 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 ira coronary artery of [facility] heart without angina pectoris; Atrial fibrillation, unspecified type (CMS/HCC); Cardiomyopathy, unspecified type (CMS/HCC); Cardiac pacemaker in situ; Mixed hyperlipidemia; Benign hypertension; SOLIS (dyspnea on exertion) 12/23/2024 Telephone [facility] [address] [place] [address] Tani Patel MD Nerve Conduction Study 11/22/2024 Refill [facility] EP AT [address] [place] [address] Tani Patel MD from Last 3 Months Immunizations Immunization Administration Dates Next Due (PREVNAR 13)(6 WKS UP) PNEUM OCOCCAL CONJUGATE (PCV13) 0.5 ML, IM 08/15/2015 INFLUENZA VACCINE QUADRIVALE NT ADJ 65 YR UP PF IM 08/17/2020 Influenza Seasonal Unspecifi ed Formulation IM 08/30/2020,09/11/2017,08/10/2013 Influenza Vaccine High Dose 65+ Yrs IM 9,09/08/2018,09/18/2017 Influenza Vaccine Tri Adjuvanted 65+ PF IM 09/08 Influenza Vaccine Tri Split 4+ Im 09/11/2017,11/2014,08/05/2014 Pneumococcal Polysaccharide Vacc 23-hilda IM SCHIP 01/20/2017 Family History Medical History Relation Name Comments Cancer Father Prostate Cancer Diabetes Father Heart Disease Father High Cholesterol Father Hypertension Father Other Maternal Grandmother Brain A neurysm Cancer Mother Kidney Cancer Kidney Disease Mother Relation Name Status Comments Father Maternal Grandmother Mother Social History Tobacco Use Types Packs/Day Years Used Date Smoking Tobacco: Every Day Pipe Smokeless Tobacco: Never Tobacco Cessation:Ready to Q uit: Not Asked; Counseling Given: Not Answered Comments:Smokes a pipe 6-7x/day Alcohol Use Standard Drinks/Week Comments No 0 [...] on file Legal 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 Gender Identity Not on file Sexual Orientation Not on file Last Filed Vital Signs Vital Sign Reading Time Taken Comments Blood Pressure 103/63 01/31/2025 2:10 PM CDT Pulse 52 01/31/2025 2:15 PM CDT Temperature 36.3 C (97.3 F) 01/31/2025 9:35 AM CDT Respiratory Rate 13 01/31/2025 9:45 AM CDT Oxygen Saturation 95% 01/31/2025 2:15 PM CDT Inhaled Oxygen Concentration - - Weight 118.4 kg (261 lb) 01/31/2025 9:35 AM CDT Height 180.3 cm (5' 11 ) 01/31/2025 9:35 AM CDT Body Mass Index 36.4 01/31/2025 9:35 AM CDT Plan of Treatment Upcoming Encounters Date Type Department Care Team (Late st Contact Info) Description 03/04/2025 1:15 PM CDT Office Visit [facility] EP AT [place] [address] [place] [address] Tani Patel MD [facility] [address] [place] [address] 05/06/2025 12:00 PM CDT Procedure visit [facility] EP AT [facility] [address] [facility] [address] [place] [address] Health Maintenance Due Date Last Done Comments DIABETES ANNUAL FOOT EXAM 1963 DIABETES MICROALBUMIN ANNUAL SCREEN 1963 DTAP/TDAP/TD VACCINES (1 - Tdap) 1964 Traditional Medicare (ACO) A nnual Wellness Visit 1964 ZOSTER VACCINE (1 of 2) 1995 RSV VACCINE (60+ or ) (1 - 1-dose 75+ series) 2020 DIABETES ANNUAL RETINAL EXAM 05/10/2021, 05/10/2020, 11/15/2019, Additional history exists LDL CHOLESTEROL ANNUAL 05/21/2023 05/21/2022, 2020 INFLUENZA VACCINE (#1) 2024 , 08/17/2020, 09/21/2019, Additional history exists DIABETES HBA1C Q 6 MONTHS 12/15/20242023, 01/06/2024, 10/21/2023, Additional history exists PNEUMOCOCCAL VACCINE 50+ YEARS Completed 01/20/2017 , 08/15/2015 FIT/FOBT Q 1 year Discontinued 01/21/2021 COLORECTAL SCREENING Discontinued 12/26/2022, 12/26/2022, 03/18/2018 Colorectal Cancer Screening Discontinued FIT-DNA Q 3 years Discontinued Flex Sig/CT Colonography Q 5 years Discontinued Medical Devices Implanted Type Area Wound/Ostomy Nurse Device Identifier Shelf Expiration Date Model / Serial / Lot Sealant Duraseal 5ml - [id number] Implanted:Qty : 1 on 01/02/2021 by Jarvis Martell MD at [facility] Biological Spine Lumbar INTEGRA LIFESCIENCE HOLD LULA 02/14/2022 / / [id number] [id number] T/Plif, H 13mm, 4' , 26/9 Implanted:Qty : 1 on 01/02/2021 by Jarvis Martell MD at [facility] Cage Spine Lumbar J&J- [employer] 08/16/2024 [id number] / / [id number] Description:All Depuy spinal hardware was processed on requisition, 656512. Hemostatic Surgiflo 8ml W/Thrombin 2994 - [id number] Implanted:Qty : 1 on 01/02/2021 by Jarvis Martell MD at [facility] Hemostatic Spine Lumbar J&J- ETHICON INC 11/16/2021 [id number] / / [id number] Hemostat Gaby Surg Mph Pwd 3gm [id number] - [id number] Implanted:Qty : 1 on 12/14/2021 by Aki Mccray MD at [facility] Hemostatic Left: Chest CR BARD- DAVOL INC 05/14/2026 [id number] / / [id number] Lead Pcmkr Tendril St Optm 8tc-52 - [id number] Implanted:Qty : 1 on 12/14/2021 by Aki Mccray MD at [facility] Lead N/A: Heart TITUS [employer] 11/16/2024 2088TC-52 / [id number] / Lead Pcmkr Tendril St Optm 2087tc-58 - [id number] Implanted:Qty : 1 on 12/14/2021 by Aki Mccray MD at [facility] Lead N/A: Heart TITUS [employer] 07/17/2024 2088TC/58 / [id number] / Pacemaker Assurity-2 Mri [id number] - [id number] Implanted:Qty : 1 on 12/14/2021 by Aki Mccray MD at [facility] Pacemaker Left: Chest TITUS [employer] 05/16/2023 [id number] / [id number] / [id number] Description:Assurity MRI pacemaker and Tendril MRI and Tendril STS pacing leads allow full body, 1.5T and 3T MRI scans.* When the Assurity MRI pacemaker is combined with Tendril STS or Tendril MRI pacing leads there is no wait time between implant and MRI scan readiness.-cole 12/20/21 Rene Xpdm Crv W/Line 95mm [id number] - Ssterilized 12/20/2020 Implanted:Qty : 1 on 01/02/2021 by Jarvis Martell MD at [facility] Rene Spine Lumbar J&J- [employer] 5 / STERILIZED 12/20/2020 / LOAD 110 Rene Xpdm Crv W/Line 85mm - Ssterilized 12/20/2020 Implanted:Qty : 1 on 01/02/2021 by Jarvis Martell MD at [facility] Rene Spine Lumbar J&J- [employer] 5 / STERILIZED 12/20/2020 / LOAD 110 Log [id number] - Depuy Expedium 5.5 Spine Tray - 1 - Screw Exp Poly 6x40mm Implanted:Qty : 2 on 05/06/2011 at [facility] Screw J&J- [employer]PU[employer] 0 / / Setscrew Inner - Ssterilized 12/20/2020 Implanted:Qty : 6 on 01/02/2021 by Jarvis Martell MD at [facility] Screw Spine Lumbar J&J- [employer] 0 / STERILIZED 12/20/2020 / LOAD 110 Screw Exp Poly 7x45mm - Ssterilized 12/20/2020 Implanted:Qty : 4 on 01/02/2021 by Jarvis Martell MD at [facility] Screw Spine Lumbar J&J- [employer] 5 / STERILIZED 12/20/2020 / LOAD 110 Synergy-2019 Implanted: by Dominic Young MD (Quantity not on file) Stent 12/08/2020 / / [id number] Description:placed in the A Stent Synergy Xd 5.0x12mm Evrlms Elut [id number] - [id number] Implanted:Qty : 1 on 12/13/2021 at [facility] Stent N/A: Coronary [employer] LULA 12/18/2022 [id number] / / [id number] Putty Dbx Dbm [facility] [id number] - [id number] Implanted:Qty : 1 on 01/02/2021 by Jarvis Martell MD at [facility] Tissue Spine Lumbar MUSCULOSKELETAL TRANSPLANT FOU 09/04/2021 [id number] / [id number] / Healos Implanted:Qty : 1 on 05/06/2011 at [facility] 05/17/2011 [id number] / / [id number] Description:depuy spine [place] Cage Implanted:Qty : 1 on 05/06/2011 at [facility] 2 / / Description:concord bullet c age, load#24 05-01-2011 Explanted Type Area Wound/Ostomy Nurse Device Identifier Shelf Expiration Date Model / Serial / Lot Log [id number] - Depuy Expedium 5.5 Spine Tray - 1 - Rene Xpdm 5.5 Ti Prebnt 45mm [id number] Implanted:Qty: 1 on 05/06/2011 at [facility] Explanted:Qty: 1 on 01/02/2021 by Jarvis Martell MD at [facility] Rene J&J- DEPUY SPINE INC [id number] / / Log [id number] - Depuy Expedium 5.5 Spine Tray - 1 - Screw Set Inner Implanted:Qty: 2 on 05/06/2011 at [facility] Explanted:Qty: 2 on 01/02/2021 by Jarvis Matrell MD at [facility] Screw J&J- MED PROD -OLD / / Description:load#32 05-04-20 11 Procedures Procedure Name Priority Date/Time Associated Diagnosis Comments TELEMETRY REPORT 02/01/2025 12:59 PM CDT ECHO LIMITED W CONTRAST AND WO DOPPLER AND COLOR Pending Discharge 01/31/2025 3:37 PM CDT LEFT HEART CATH Routine 01/31/2025 11:50 AM CDT Ejection fraction < 50% Abnormal stress test MS REM INTERROG PM/LDLS PM/IDS <90 D TECH REVIEW Routine 01/28/2025 3:01 AM CDT Tachy-michael syndrome (CMS/HCC) Pacemaker MS REM INTERROG PM/LDLS PM <90 D PHYS/QHP Routine 01/28/2025 3:01 AM CDT Tachy-michael syndrome (CMS/HCC) Pacemaker PROTIME-INR Routine 01/27/2025 11:00 AM CDT Chronic HFrEF (heart failure with reduced ejection fraction) (CMS/HCC) SOLIS (dyspnea on exertion) BASIC METABOLIC PANEL Routine 01/27/2025 11:00 AM CDT Chronic HFrEF (heart failure with reduced ejection fraction) (CMS/HCC) SOLIS (dyspnea on exertion) CBC WITH DIFFERENTIAL Routine 01/27/2025 11:00 AM CDT Chronic HFrEF (heart failure with reduced ejection fraction) (CMS/HCC) SLOIS (dyspnea on exertion) NM MYOCARD PERF IMAG SPECT MULT Routine 01/25/2025 11:51 AM CDT Coronary artery disease involving [facility] ira coronary artery of [facility] [place] heart without angina pectoris SOLIS (dyspnea on exertion) HM EJECTION FRACTION Routine 01/25/2025 11:51 AM CDT NM PHARMACOLOGICAL STRESS TEST Routine 01/25/2025 10:45 AM CDT Coronary artery disease involving [facility] ir[facility] coronary artery of [facility] ir[facility] heart without angina pectoris SOLIS (dyspnea on exertion) LIPID PANEL Routine 05/21/2022 2:46 PM CDT Benign hypertension Mixed hyperlipidemia HEMOGLOBIN A1C Routine 12/11/2021 2:27 PM LAWN CARE WORKER POC OCCULT BLOOD 1 CARD Routine 01/21/2021 2:16 PM LAWN CARE WORKER from Last 3 Months or Most Recently Relevant to Health Maintenance Results * TELEMETRY REPORT (02/01/2025 12:59 PM CDT) us Provider Scanning ECG ORDERABLES Final Result * ECHO LIMITED W CONTRAST AND WO DOPPLER AND COLOR (01/31/2025 3:37 PM CDT) EJECTION FRACTION EF: INTERFACE SYSTEM 01/31/2025 1:59 PM CDT Narrative INTERFACE SYSTEM - 01/31/2025 3:49 PM CDT [address] [address] [email or web address] Transthoracic Echocardiogram (Report amended ) Patient: Kameron Man Study ID: ECHO LIMITED W D Gender: M : 1945 Age: 79 Race: CHANDA Height 180.3cm Study Date: 01/31/2025 Weight: 118.4kg Access. #: [id number] BP: *Referring Physician:* Dominic Young MD [facility] Dominic Young *Ordering Physician:* Cuauhtemoc Saez pharmacist per diem: Nurse: STUDY CONCLUSIONS: SUMMARY: - Left ventricle: The cavity size was dilated. Wall thickness was increased in a pattern of mild LVH. Global systolic function is severely reduced. The estimated ejection fraction is 15-20%. Severe global hypokinesis most severe in mid-apical segments. - Ventricular septum: Paradoxical septal motion. - Limited 2D only study. Cardiac Anatomy: LEFT VENTRICLE: The cavity size was dilated. Wall thickness was increased in a pattern of mild LVH. Global systolic function is severely reduced. The estimated ejection fraction is 15-20%. Severe global hypokinesis most severe in mid-apical segments. Global longitudinal strain was -4.3% (GLS is abnormal if greater than -16, i.e. -15). VENTRICULAR SEPTUM: Paradoxical septal motion. Measurements Left ventricle Value Ref 09/06/2024 GLS, 2D -4.3 % --------- IVS, ED, LAX (H) 1.4 cm 0.6 - 1.0 JUDE, LAX (N) 5.5 cm 4.2 - 5.8 4.0 JUDE/bsa, LAX (N) 2.3 cm/m^2 2.2 - 3.0 1.7 JUDE, LAX chord (H) 7.0 cm 4.2 - 5.8 5.7 ESD, LAX chord (H) 5.5 cm 2.5 - 4.0 4.0 JUDE/bsa, LAX chord (N) 2.9 cm/m^2 2.2 - 3.0 2.5 ESD/bsa, LAX chord (H) 2.3 cm/m^2 1.3 - 2.1 1.7 FS, LAX chord (L) 21 % 25 - 43 30 IVS, ED (H) 1.4 cm 0.6 - 1.0 1.3 PW, ED (H) 1.3 cm 0.6 - 1.0 1.2 EDV, 2-p (H) 244 ml 62 - 150 234 ESV, 2-p (H) 204 ml 21 - 61 133 EF, 2-p (L) 16 % 52 - 72 43 SV, 2-p 40 ml --------- 101 SV/bsa, 2-p 16.9 ml/m^2 --------- 43.7 Legend: (L) and (H) arlet values outside specified reference range. (N) phillips values inside specified reference range. Procedure data: Procedure information: A transthoracic echocardiogram was performed. Scanning was performed from the parasternal, apical, and subcostal acoustic windows. Intravenous contrast (Definity) was administered. Transthoracic echocardiogram. Limited 2D. Birthdate: Patient birthdate: 1945. Age: Patient is 79year(s) old. Sex: gender: male. Height: 180.3cm. 71in. Weight: 118.4kg. 261lb. Body mass index: 36.4kg/m^2. Body surface area: 2.36m^2. Study date: Study date: 01/31/2025. Study time: 01:59 PM. Amended Eusebio Bashir [id number]:39 Procedure Note Eusebio Bashir MD - 01/31/[address] [address] [email or web address] Transthoracic Echocardiogram (Report amended ) Patient: Kameron Man Study ID: ECHO ZEYAD Freeman D Gender: M : 1945 Age: 79 Race: CHANDA Height 180.3cm Study Date: 01/31/2025 Weight: 118.4kg Access. #: [id number] BP: *Referring Physician:* Dominic Young MD [facility] Dominic YoungOrdering Physician:* Cuauhtemoc Saez pharmacist per diem: Nurse: STUDY CONCLUSIONS: SUMMARY: - Left ventricle: The cavity size was dilated. Wall thickness wasincreased in a pattern of mild LVH. Global systolic function is severely reduced.The estimated ejection fraction is 15-20%. Severe global hypokinesis mostsevere in mid-apical segments. - Ventricular septum: Paradoxical septal motion. - Limited 2D only study. Cardiac Anatomy: LEFT VENTRICLE: The cavity size was dilated. Wall thickness was increasedin a pattern of mild LVH. Global systolic function is severely reduced. The estimated ejection fraction is 15-20%. Severe global hypokinesis mostsevere in mid-apical segments. Global longitudinal strain was -4.3% (GLS isabnormal if greater than -16, i.e. -15). VENTRICULAR SEPTUM: Paradoxical septal motion. Measurements Left ventricle Value Ref 09/06/2024 GLS, 2D -4.3 % --------- IVS, ED, LAX (H) 1.4 cm 0.6 - 1.0 JUDE, LAX (N) 5.5 cm 4.2 - 5.8 4.0 JUDE/bsa, LAX (N) 2.3 cm/m^2 2.2 - 3.0 1.7 JUDE, LAX chord (H) 7.0 cm 4.2 - 5.8 5.7 ESD, LAX chord (H) 5.5 cm 2.5 - 4.0 4.0 JUDE/bsa, LAX chord (N) 2.9 cm/m^2 2.2 - 3.0 2.5 ESD/bsa, LAX chord (H) 2.3 cm/m^2 1.3 - 2.1 1.7 FS, LAX chord (L) 21 % 25 - 43 30 IVS, ED (H) 1.4 cm 0.6 - 1.0 1.3 PW, ED (H) 1.3 cm 0.6 - 1.0 1.2 EDV, 2-p (H) 244 ml 62 - 150 234 ESV, 2-p (H) 204 ml 21 - 61 133 EF, 2-p (L) 16 % 52 - 72 43 SV, 2-p 40 ml --------- 101 SV/bsa, 2-p 16.9 ml/m^2 --------- 43.7 Legend: (L) and (H) arlet values outside specified reference range. (N) phillips values inside specified reference range. Procedure data: Procedure information: A transthoracic echocardiogram was performed.Scanning was performed from the parasternal, apical, and subcostal acousticwindows. Intravenous contrast (Definity) was administered. Transthoracic echocardiogram. Limited 2D. Birthdate: Patient birthdate: 1945.Age: Patient is 79year(s) old. Sex: gender: male. Height: 180.3cm.71in. Weight: 118.4kg. 261lb. Body mass index: 36.4kg/m^2. Body surfacearea: 2.36m^2. Study date: Study date: 01/31/2025. Study time: 01:59 PM. Amended MckayEusebio [id number] Cuauhtemoc Saez [facility] ORDERABLES Edited Result - Final INTERFACE SYSTEM Refer to clinic/hospital department * LEFT HEART CATH (01/31/2025 11:50 AM CDT) Narrative [facility]ART AND VASCULAR [facility] - 02/01/2025 7:32 AM CDT Diagnostic Dominance: Right Left Main The vessel is large. The vessel exhibits minimal luminal irregularities. The vessel is calcified. Left Anterior Descending The vessel is large. The vessel exhibits minimal luminal irregularities. The vessel is calcified. Mid LAD lesion is 35% stenosed. The lesion was previously treated using a stent of unknown type. The lesion has restenosis. Left Circumflex The vessel is moderate in size. The vessel exhibits minimal luminal irregularities. The vessel is calcified. Right Coronary Artery The vessel is large. There is mild diffuse disease in the vessel. The vessel is calcified. Previously placed Mid RCA stent of unknown type is widely patent. Right Posterior Descending Artery RPDA lesion is 50% stenosed. The lesion is eccentric. NO severe CAD. LVEDP 21. Routine TR band care. 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 GDMT. Coronary Findings Diagnostic Dominance: Right Left Main: The vessel is large. The vessel exhibits minimal luminal irregularities. The vessel is calcified. Left Anterior Descending: The vessel is large. The vessel exhibits minimal luminal irregularities. The vessel is calcified. Mid LAD lesion is 35% stenosed. The lesion was previously treated using a stent of unknown type. The lesion has restenosis. Left Circumflex: The vessel is moderate in size. The vessel exhibits minimal luminal irregularities. The vessel is calcified. Right Coronary Artery: The vessel is large. There is mild diffuse disease in the vessel. The vessel is calcified. Previously placed Mid RCA stent of unknown type is widely patent. Right Posterior Descending Artery: RPDA lesion is 50% stenosed. The lesion is eccentric. Intervention No interventions have been documented. Estimated Blood Loss There was minimal blood loss during procedure. Dominic Young MD CUP CATH ORDERABLES Final Result [facility] HEART AND VASCULAR [facility]# [id number] [address] [place] [address] * MS REM INTERROG PM/LDLS PM <90 D PHYS/QHP, MS REM INTERROG PM/LDLS PM/IDS <90 D TECH REVIEW (01/28/2025 3:01 AM CDT) 01/28/2025 3:01 AM CDT Narrative INTERFACE SYSTEM - 01/28/2025 10:48 AM CDT Remote Milnor Transmission Appropriate dual chamber pacemaker function. Presenting Rhythm: AFL/Delivery Tech Battery: 5.1-6.1 years PRACTICE MANAGEMENT CONSULTANT 61% Since 10/29/2024 12,840 AMS episodes, burden 62%. Ongoing No ventricular arrhythmias noted. Per [facility], Patient takes metoprolol, amiodarone, plavix, eliquis Results sent via naaya Procedure Note Provider, Historical - 01/28/2025 Remote Shoaib Transmission Appropriate dual chamber pacemaker function. Presenting Rhythm: AFL/Delivery Tech Battery: 5.1-6.1 years PRACTICE MANAGEMENT CONSULTANT 61% Since 10/29/2024 12,840 AMS episodes, burden 62%. Ongoing No ventricular arrhythmias noted. Per [facility], Patient takes metoprolol, amiodarone, plavix, eliquis Results sent via naaya Tani Patel MD CARDIAC SERVICES ORDERABLES Ed ited Result - Final INTERFACE SYSTEM Refer to clinic/hospital department * (ABNORMAL) CBC WITH DIFFERENTIAL (01/27/2025 11:00 AM CDT) WBC 6.2 3.8 - 10.8 Thousand/u L [facility] RBC 4.89 4.20 - 5.80 Million/uL [facility] HEMOGLOBIN 14.6 13.2 - 17.1 g/dL [facility] HEMATOCRIT 46.0 38.5 - 50.0 % [facility] MCV 94.1 80.0 - 100.0 fL [facility] MCH 29.9 27.0 - 33.0 pg [facility] MCHC 31.7(L) 32.0 - 36.0 g/dL [facility] Comment: For adults, a slight decrease in the calculated MCHC value (in the range of 30 to 32 g/dL) is most likely not clinically significant; however, it should be interpreted with caution in correlation with other red cell parameters and the patient's clinical condition. RDW 16.2(H) 11.0 - 15.0 % [facility] PLATELETS 230 140 - 400 Thousand/u L [facility] MPV 9.5 7.5 - 12.5 fL [facility] NEUTROPHIL ABSOLUTE 4,755 1,500 - 7,800 cells/uL [facility] LYMPHOCYTE ABSOLUTE 632(L) 850 - 3,900 cells/uL [facility] MONOCYTE ABSOLUTE 663 200 - 950 cells/uL [facility] EOSINOPHIL ABSOLUTE 118 15 - 500 cells/uL [facility] BASOPHILS ABSOLUTE 31 0 - 200 cells/uL [facility] NEUTROPHIL 76.7 % [facility] LYMPHOCYTES 10.2 % [facility] MONOCYTE 10.7 % [facility] EOSINOPHILS 1.9 % [facility] BASOPHILS 0.5 % [facility] Comment: Test Performed at: [facility] [address] [place] [address] Humberto Byers MD Blood 01/27/2025 11:0 0 AM CDT 01/27/2025 11:01 AM CDT Dominic Young MD HEMATOLOGY ORDERABLES Final Resu lt [facility] [phone] [facility] [address] [address] [phone] * (ABNORMAL) PROTIME-INR (01/27/2025 11:00 AM CDT) INR 1.1 [facility] griselda John Comment: Reference Range 0.9-1.1 Moderate-intensity Warfarin Therapy 2.0-3.0 Higher-intensity Warfarin Therapy 3.0-4.0 PROTIME 11.8(H) 9.0 - 11.5 sec [facility] griselda Lopez Comment: For additional information, please refer to http://education.Etacts/faq/LCW924 (This link is being provided for informational/ educational purposes only.) Test Performed at: [facility] [address] [place] [address] [facility] Vo Blood 01/27/2025 11:0 0 AM CDT 01/27/2025 11:01 AM CDT Result [facility] Dominic Young MD HEMATOLOGY ORDERABLES Final Resu Performing Organization Address City/[facility]/ZIP Code Phone Number [facility] [phone] [facility] [address] [place] [address] * (ABNORMAL) BASIC METABOLIC PANEL (01/27/2025 11:00 AM CDT) GLUCOSE 162(H) 65 - 99 mg/dL [facility] Comment: Fasting reference interval For someone without known diabetes, a glucose value >125 mg/dL indicates that they may have diabetes and this should be confirmed with a follow-up test. BUN 22 7 - 25 mg/dL [facility] CREATININE 1.27 0.70 - 1.28 mg/dL [facility] GFR 57(L) > OR = 60 mL/min/1.7 3m2 [facility] BUN/CREAT RATIO SEE NOTE: 6 - 22 (calc) [facility] Comment: Not Reported: BUN and Creatinine are within reference range. SODIUM 140 135 - 146 mmol/L [facility] POTASSIUM 4.6 3.5 - 5.3 mmol/L [facility] CHLORIDE 101 98 - 110 mmol/L [facility] CO2 31 20 - 32 mmol/L [facility] CALCIUM 8.9 8.6 - 10.3 mg/dL [facility] Comment: Test Performed at: [facility] [address] [place] [address] Humberto Byers MD Blood 01/27/2025 11:0 0 AM CDT 01/27/2025 11:01 AM CDT Dominic Young MD CHEMISTRY ORDERABLES Final Resul t [facility] [phone] [facility] [address] [place] [address] * NM MYOCARD PERF IMAG SPECT MULT (01/25/2025 11:51 AM CDT) 01/25/2025 11:5 2 AM CDT Impressions INTERFACE SYSTEM - 01/25/2025 1:31 PM CDT IMPRESSION: 1) Stress EKG response was nondiagnostic due to ventricular pacing. 2) The overall quality of the study is good. 3) The myocardial perfusion scan is abnormal. 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 4) Left ventricular size is severely dilated with severely reduced left ventricular systolic function, and a calculated ejection fraction of 26%. 5) No previous study was available for comparison. Recommendations: Clinical correlation is recommended. Narrative INTERFACE SYSTEM - 01/25/2025 1:31 PM CDT Procedure Type: One Day Myoview Regadenoson Pharmacologic Stress Test Date of Procedure: 01/25/2025 11:51 AM Clinical Indication: This 79 years old Male with a clinical history of CAD is undergoing an evaluation for coronary artery disease via a pharmacologic stress test due to CAD. Height: 5 feet 11 inches; Weight: 260 pounds Medications:See list Pharmacologic Stress Procedure: The patient performed a pharmacologic stress test using 0.4 mg regadenoson IVP over 10 seconds without low level walking. The heart rate was 96 bpm at baseline and increased to 114 bpm. The blood pressure was 115/73 mmHg at baseline and 93/68 mmHg during infusion, demonstrating a tachycardic response to regadenoson. The patient felt short of breath during the procedure. EKG: The baseline electrocardiogram showed possible aflutter with right bundle-branch block, LAFB. The electrocardiogram was nondiagnostic due to ventricular pacing. Nuclear Imaging Protocol: Myocardial perfusion imaging was performed at rest approximately 30 minutes following the intravenous injection of 6.7 mCi TC99m Myoview. Immediately after regadenoson infusion, the patient was injected intravenously with 21.4 mCi TC99m Myoview. Gated post - stress tomographic imaging was performed approximately 60 minutes later in same manner. SPECT reconstruction was performed in the short, vertical long and horizontal axis views in both resting and gated image sets. Post-stress prone images were also obtained in the short, vertical long, and horizontal axis views. Findings: The overall quality of the study is good. Rotating planar images reveal no motion artifact. The left ventricular size is severely dilated. Rest and post-stress SPECT myocardial perfusion images reveal a large fixed perfusion defect of marked severity involving the entire apical myocardium extending into the entire inferior and inferolateral myocardium with no reversible perfusion defects seen. Gated SPECT imaging demonstrates apical/inferior/inferolateral hypokinesis, and a calculated left ventricular ejection fraction estimated to be 26%. Procedure Note Jez Lara MD - 01/25/2025 Procedure Type: One Day Myoview Regadenoson Pharmacologic Stress Test Date of Procedure: 01/25/2025 11:51 AM Clinical Indication: This 79 years old Male with a clinical history of CAD is undergoing an evaluation for coronary artery disease via a pharmacologic stress test due to CAD. Height: 5 feet 11 inches; Weight: 260 pounds Medications:See list Pharmacologic Stress Procedure: The patient performed a pharmacologic stress test using 0.4 mg regadenoson IVP over 10 seconds without low level walking. The heart rate was 96 bpm at baseline and increased to 114 bpm. The blood pressure was 115/73 mmHg at baseline and 93/68 mmHg during infusion, demonstrating a tachycardic response to regadenoson. The patient felt short of breath during the procedure. EKG: The baseline electrocardiogram showed possible aflutter with right bundle-branch block, LAFB. The electrocardiogram was nondiagnostic due to ventricular pacing. Nuclear Imaging Protocol: Myocardial perfusion imaging was performed at rest approximately 30 minutes following the intravenous injection of 6.7 mCi TC99m Myoview. Immediately after regadenoson infusion, the patient was injected intravenously with 21.4 mCi TC99m Myoview. Gated post - stress tomographic imaging was performed approximately 60 minutes later in same manner. SPECT reconstruction was performed in the short, vertical long and horizontal axis views in both resting and gated image sets. Post-stress prone images were also obtained in the short, vertical long, and horizontal axis views. Findings: The overall quality of the study is good. Rotating planar images reveal no motion artifact. The left ventricular size is severely dilated. Rest and post-stress SPECT myocardial perfusion images reveal a large fixed perfusion defect of marked severity involving the entire apical myocardium extending into the entire inferior and inferolateral myocardium with no reversible perfusion defects seen. Gated SPECT imaging demonstrates apical/inferior/inferolateral hypokinesis, and a calculated left ventricular ejection fraction estimated to be 26%. IMPRESSION: 1) Stress EKG response was nondiagnostic due to ventricular pacing. 2) The overall quality of the study is good. 3) The myocardial perfusion scan is abnormal. 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 4) Left ventricular size is severely dilated with severely reduced left ventricular systolic function, and a calculated ejection fraction of 26%. 5) No previous study was available for comparison. Recommendations: Clinical correlation is recommended. us Dominic Young MD NM ORDERABLES Final Result INTERFACE SYSTEM Refer to clinic/hospital department * (ABNORMAL) HM EJECTION FRACTION (01/25/2025 11:51 AM CDT) [facility] Signature EJECTION FRACTION 26(A) 50 - 65 % us Historical Provider HEALTH MAINTENANCE Final Res ult * NM PHARMACOLOGICAL STRESS TEST (01/25/2025 10:45 AM CDT) Narrative 01/25/2025 10:46 AM CDT Order information only. Exam was auto-finalized. Dominic Young MD NM ORDERABLES Final Result * (ABNORMAL) LIPID PANEL (05/21/2022 2:46 PM CDT) CHOLESTEROL 153 <200 mg/dL Arthro[facility] griselda Lopez HDL 48 > OR = 40 mg/dL [facility] griselda Lopez TRIGLYCERIDE 266(H) <150 mg/dL [facility] griselda Lopez Comment: If a non-fasting specimen was collected, consider repeat triglyceride testing on a fasting specimen if clinically indicated. Darshan et al. J. of Clin. Lipidol. 2015;9:129-169. LDL CALCULATED 70 mg/dL (calc) ArthroCADBianca griselda Lopez Comment: Reference range: <100 Desirable range <100 mg/dL for primary prevention; <70 mg/dL for patients with CHD or diabetic patients with > or = 2 CHD risk factors. LDL-C is now calculated using the Girma-Ramos calculation, which is a validated novel method providing better accuracy than the Friedewald equation in the estimation of LDL-C. Girma SS et al. GINA. 2013;310(19): 5450-1454 (http://education.[employer]/faq/TMR643) CHOL/HDL RATIO 3.2 <5.0 (calc) ArthroCADBianca griselda Lopez TOTAL NON-HDL CHOL(LDL+VLDL) 105 <130 mg/dL (calc) [facility] griselda Lopez Comment: For patients with diabetes plus 1 major ASCVD risk factor, treating to a non-HDL-C goal of <100 mg/dL (LDL-C of <70 mg/dL) is considered a therapeutic option. Test Performed at: [facility] [address] [place] [place] [address] Humberto Juarez Vo Blood 05/21/2022 2:46 PM CDT 05/21/2022 2:46 PM CDT Dominic Young MD CHEMISTRY ORDERABLES Final Resul t Performing Organization Address City/[facility]/ZIP Code Phone Number [facility] [phone] [facility] [address] [place] [address] * (ABNORMAL) HEMOGLOBIN A1C (12/11/2021 2:27 PM LAWN CARE WORKER) HEMOGLOBIN A1C 9.2(H) <5.7 % 12/11/2021 4:14 PM LAWN CARE WORKER [employer] [facility] EST. AVG GLUCOSE, A1C 217 mg/dL 12/11/2021 4:14 PM LAWN CARE WORKER [facility] advisorCONNECT [facility] Blood Venipuncture / Unknown 12/11/2021 2:27 PM LAWN CARE WORKER 12/11/2021 2:42 PM LAWN CARE WORKER Narrative [facility] - 12/11/2021 4:14 PM LAWN CARE WORKER HGB A1C INTERPRETATION NORMAL: <5.7% PRE-DIABETES: 5.7 - 6.4% DIABETES: 6.5% OR GREATER Eusebio Bashir MD CHEMISTRY ORDERABLES Fi nal Result Performing Organization Address [facility]/ZIP Co de Phone Number [facility] advisorCONNECT [facility] CLIA# [id number] [address] [place] [address] * POC OCCULT BLOOD 1 CARD (01/21/2021 2:16 PM LAWN CARE WORKER) OCCULT BLOOD 1 CARD POC Negative Negative 01/21/2021 2:[address] WORKER [facility] MANAGER READING NAME POC JAZZMINE SHERMAN 01/21/2021 2:16 PM LAWN CARE WORKER [employer] [facility] Stool STOOL SPECIMEN / Unknown 01/21/2021 2:16 PM LAWN CARE WORKER 01/22/2021 10:40 AM LAWN CARE WORKER Master Villegas MD POINT OF CARE TESTING Final Re sult Performing Organization Address City/[facility]/ZIP Co de Phone Number [facility] advisorCONNECT [facility] CLIA# [id number] [address] [place] [address] from Last 3 Months or Most Recently Relevant to Health Maintenance Insurance MEDICARE PART A AND B BCBS SUPP RX [employer] Medicare Part D RX [employer] (INTERNAL) [facility] RX [employer] Commercial Advance Directives For more information, please contact: [phone] Documents on File Type Date Recorded Patient Business Services Officer Expl anation Advance Directive POA 02/07/2021 9:09 AM Mental Health Advanced Directive 01/09/2021 4:17 PM Mental Health Advanc ed Directive * Full Code (Latest Code Status on File) Date Activated Date Inactivated Comments 01/31/2025 9:14 AM 01/31/2025 7:04 PM * Full Code Date Activated Date Inactivated Comments 08/17/2024 10:20 AM 08/18/2024 3:00 AM * Full Code Date Activated Date Inactivated Comments 12/13/2021 5:32 PM 01/14/2022 7:09 PM * Full Code Date Activated Date Inactivated Comments 12/11/2021 3:25 PM 12/13/2021 5:32 PM * Full Code Date Activated Date Inactivated Comments 12/11/2021 1:05 PM 12/11/2021 3:25 PM Care Teams Budget Assistant Relationship Specialty Start Date End Date Eric Pretty MD [address] [place] [address] PCP - General Internal Medicine 11/24/19
--- OUTSIDE RECORDS SUMMARY | 2025-02-16 10:36 | XMS_ITS | Clinical Summary ---
Author Organization [facility] [employer] Address [address] [place] [address] Care Team Providers Care Solution Director Name Role Phone Eric Pretty MD Primary Care Provider [phone] [facility],non-owned Affiliates and Associated Physician Practices is amultiple site organization consisting of ambulatory clinics and hospital sitesin [place], [place], [place] and [place]. This disclosure is being madepursuant to the Care Everywhere program and may not contain all information available regarding this patient. Last updated 18.[facility] [employer] Social History Tobacco Use Types Packs/Day Years Used Date Smoking Tobacco: Never Assessed Sex and Gender Information Value Date Recorded Sex Assigned at Not on file Gender Identity Not on file Sexual Orientation Not on file Plan of Treatment Health Maintenance Due Date Last Done Comments MEDICARE AWV 12 MONTHS 1945 DTAP/TDAP/TD VACCINES (1 - Tdap) 1964 PNEUMOCOCCAL VACCINE 50+ (1 of 1 - PCV) 1995 ZOSTER VACCINE (1 of 2) 1995 Respiratory Syncytial Virus (RSV) Vaccine Pt: or over 60 yrs (1 - 1-dose 75+ series) 2020 COVID-19 VACCINE ( - 2023-2 5 season) 2024 DEPRESSION SCREENING 11/17/2024 INFLUENZA VACCINE (Season Ended) 2025 HEPATITIS B VACCINE Aged Out No longe r eligible based on patient's age to complete this topic HIB VACCINE Aged Out No longer eligi ble based on patient's age to complete this topic HPV VACCINE Aged Out No longer eligi ble based on patient's age to complete this topic MENINGOCOCCAL (Group B) VACC INE SHARED DECISION-MAKING Aged Out No longer eligibl e based on patient's age to complete this topic MENINGOCOCCAL GROUPS A/C/Y/W VACCINE Aged Out No longer eligible b ased on patient's age to complete this topic Care Teams Solution Director Relationship Specialty Start Date End Date Eric Pretty MD [address] [place] [address] PCP - General 01/15/23
--- OUTSIDE RECORDS SUMMARY | 2025-02-16 10:36 | XMS_ITS | Continuity of Care Document ---
Author Organization [facility] Address [address] [facility] [address] [place] [address] Phone Care Team Providers Care Sheriff Name Role Phone Wally Ray MD Unavailable Unavailable Medications Medication Instructions Dosage Effective Dates (start - stop) Status Comments NOVOLIN 70-30 (unknown strength) Not Available - Active LISINOPRIL (unknown strength) Not Available - Active LIPOFEN (unknown strength) Not Available - Active VICODIN (unknown strength) Not Available - Active OMEPRAZOLE (unknown strength) Not Available - Active SAW PALMETTO (unknown strength) Not Available - Active FOLIC ACID (unknown strength) Not Available - Active Procedures Procedure Date OFFICE CONSULTATION POSTOP FOLLOW-UP VISIT OFFICE/OUTPATIENT VISIT [facility] Advance Directives Directive Yes / No Effective Date File Name No Information Encounters Encounter Description Practice Location Reason(s) For Visit Diagnoses Date Provider Providers Copied on Encounter OFFICE CONSULTATION [facility], [address] [facility] [address], [place], [address], [place] tel:[phone] [facility] [place] Biceps tendon tear 4 Flor Lo. [address], [place], [place], [id number] . tel: [phone] Referring Provider: Master Melendez, [address], [place], [address] . tel:[phone] [facility], [address] [facility] [address], [place], [address], tel:[phone] [facility] Onychia of finger 4 Mike Pickens. [address] [place], [place], [id number] . tel: [phone] OFFICE/OUTPATI ENT VISIT [facility], [address] [facility] [place], [address], tel:[phone] [facility] [address] Mike Pickens. [address] [place], [place], [id number] . tel: [phone] Family History Family Member Type Diagnosis Age At Onset No Information Payers Payer name Insurance type Covered democrat ID Authoriza tion(s) No Information Social History Type Description Quantity Date Captured Comments Sex Male Smoking Status No Information Chief Complaint And Reason For Visit No Information Reason For Referral Reason For Referral No Information Plan Of Treatment Date Type Action Status Referral Ordered: RADEX FNGR MINIMUM 2 VIEWS RT ordered History Of Present Illness Encounter Date Complaint History Of Prese nt Illness No Information Functional Status Date Functional Assessmen t No Information Instructions Date Instruction Additional Infor sarah Physical activity counseling Rel ated to Dietary Surveillance Counseling Physical activity counseling Rel ated to Dietary Surveillance Counseling Assessments Type Assessment Date assessment Biceps tendon tear Patient Care Teams Name Effective Dates (start - stop) Status Members No Information
--- OUTSIDE RECORDS SUMMARY | 2025-02-16 10:37 | XMS_ITS | Encounter Summary ---
Author Organization [facility] Address [address] [place] [address] Phone Care Team Providers Care Rand Maker Name Role Phone Eric Pretty MD Primary Care Provider [phone] Kale MONTANA MD, Master Hunt Unavailable [phone] Dominic Young MD Unavailable [phone] Carlos Hernandez MD Unavailable [phone] Reason for Referral * Diagnostic Imaging (Routine) - Closed Specialty Diagnoses / Procedures Referred By Contac t Referred To Contact Radiology Diagnoses Arthrodesis status Foraminal stenosis of lumbar region Lumbar radiculopathy Procedures CT Lumbar Spine WO Contrast Denise Walker CNS Phone: tel: fax: [facility] [address] Referral ID Status Reason Start Date Expiration Date Visits Re quested Visits Authorized [id number] Closed 03/08/2019 09/16/2020 1 1 * Consultation (Routine) - Closed Specialty Diagnoses / Procedures Referred By Contac t Referred To Contact Pain Management Diagnoses Arthrodesis status Foraminal stenosis of lumbar region Lumbar radiculopathy Denise Walker CNS Phone: tel: fax: Kia Kwan MD [address] [facility] [address] [place] [address] Phone: tel: fax: Referral ID Status Reason Start Date Expiration Date V isits Requested Visits Authorized [id number] Closed Specialty Services Required 03/08/2019 09/16/2020 1 1 Scheduling Instructions Please schedule for left L4-L5 transforaminal injection.i Question Answer Please select the performing region: [facility] [157] To provider: KIA KWAN [[id number]] # of visits: 1 Encounter Details Date Type Department Care Team (Late st Contact Info) Description 03/08/2019 Orders Only [facility] [address] [facility] 1st Floor [address] [place] [address] Denise Walker CNS [address] [facility] [address] [place] [address] Arthrodesis status (Primary Dx); Foraminal stenosis of lumbar region; Lumbar radiculopathy Social History Tobacco Use Types Packs/Day Years Used Date Smoking Tobacco: Every Day Pipe Last attempted to quit: 02/22/1989 Smokeless Tobacco: Former Comments:Quit cigarettes, sm oking pipe currently Alcohol Use Standard Drinks/Week Comments Yes 1 (1 standard drink = 0.6 oz pur e alcohol) Sex and Gender Information Value Date Recorded Sex Assigned at Not on file 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 Gender Identity Not on file Sexual Orientation Not on file Occupation Industry Job Start Date Job End Date Retired Not on file Not on file Not on file documented as of this encounter Plan of Treatment Pending Results Name Type Priority Associated Diagnoses Date /Time Ambulatory referral to Pain Management Outpatient Referral Routine Arthrodesis status Foraminal stenosis of lumbar region Lumbar radiculopathy 03/24/2019 2:53 PM CDT Scheduled Referrals Name Type Priority Associated Diagnoses Orde r Schedule Ambulatory referral to Pain Management Outpatient Referral Routine Arthrodesis status Foraminal stenosis of lumbar region Lumbar radiculopathy Expected: 03/15/2019 (Approximate), Expires: 09/07/2019 documented as of this encounter Results * CT Lumbar Spine WO Contrast (03/22/2019 10:46 AM CDT) Anatomical Region Laterality Modality Spine N/A Computed Tomogra phy 03/22/2019 12:0 0 PM CDT Impressions 03/22/2019 1:11 PM CDT 1. Postsurgical changes from prior posterior instrumented fusion and discectomy at L4-L5 without evidence of anterior or posterior osseous fusion at this level. No evidence of hardware loosening. 2. Multilevel degenerative changes, as seen on recent MRI. Dictated by: Prem Rehman M.D. The radiology attending physician has personally reviewed this study, and had reviewed and/or edited this written report and agrees with it. Electronically signed by: Dwayne Mann M.D. Narrative 03/22/2019 1:11 PM CDT EXAMINATION: CT of the lumbar spine without contrast HISTORY: Is a 73-year-old male, check arthrodesis status. TECHNIQUE: CT of the lumbar spine was performed according to standard protocol without intravenous contrast. COMPARISON: MRI from 03/05/2019. FINDINGS: There is grade 1 anterolisthesis of L4 relative to L5. There are postsurgical changes from prior L4-L5 posterior instrumented fusion on the right as well as L4-L5 discectomy. The hardware appears intact. No evidence of hardware loosening. There is no acute fracture. The vertebral bodies are normal in height without compression fractures. Intervertebral disc space narrowing is noted at L4-L5 and L5-S1. There is mild anterior marginal osteophytosis. 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 Combination of findings contribute to areas of spinal canal and neural foraminal narrowing, as seen on recent MRI from 03/05/2019. There is no soft tissue abnormality. The abdominal aorta appears normal. Procedure Note Dwayne Mann MD - 03/22/2019 EXAMINATION: CT of the lumbar spine without contrast HISTORY: Is a 73-year-old male, check arthrodesis status. TECHNIQUE: CT of the lumbar spine was performed according to standard protocol without intravenous contrast. COMPARISON: MRI from 03/05/2019. FINDINGS: There is grade 1 anterolisthesis of L4 relative to L5. There are postsurgical changes from prior L4-L5 posterior instrumented fusion on the right as well as L4-L5 discectomy. The hardware appears intact. No evidence of hardware loosening. There is no acute fracture. The vertebral bodies are normal in height without compression fractures. Intervertebral disc space narrowing is noted at L4-L5 and L5-S1. There is mild anterior marginal osteophytosis. 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 Combination of findings contribute to areas of spinal canal and neural foraminal narrowing, as seen on recent MRI from 03/05/2019. There is no soft tissue abnormality. The abdominal aorta appears normal. IMPRESSION: 1. Postsurgical changes from prior posterior instrumented fusion and discectomy at L4-L5 without evidence of anterior or posterior osseous fusion at this level. No evidence of hardware loosening. 2. Multilevel degenerative changes, as seen on recent MRI. Dictated by: Prem Rehman M.D. The radiology attending physician has personally reviewed this study, and had reviewed and/or edited this written report and agrees with it. Electronically signed by: Dwayne Mann M.D. Denise Walker [facility] IMG CT PROCEDURES Final Res ult documented in this encounter Visit Diagnoses Diagnosis Arthrodesis status- Primary Foraminal stenosis of lumbar region Lumbar radiculopathy Thoracic or lumbosacral neuritis or radiculitis, unspecified Arthrodesis status Foraminal stenosis of lumbar region Lumbar radiculopathy Thoracic or lumbosacral neuritis or radiculitis, unspecified documented in this encounter Care Teams Rand Maker Relationship Specialty Start Date End Date Eric Pretty MD [address] [place] [address] PCP - General Internal Medicine 01/28/18 Master Henley III, MD [address] [place] [address] Consulting Physician Rheumatology 01/28/18 01/26/24 Dominic Young MD [address] [facility] [address] [place] [address] Consulting Physician Cardiology 01/04/20 Carlos Hernandez MD [address] [place] [address] Consulting Physician Rheumatology 01/27/24 documented as of this encounter
--- OUTSIDE RECORDS SUMMARY | 2025-02-16 10:37 | XMS_ITS | Encounter Summary ---
Author Organization [facility] Address [address] [address] Care Team Providers Care Laundromat Worker Name Role Phone Jarvis Harding Primary Care Provider [phone] Jarvis Harding Primary Care Provider [phone] Kindra Fernandez MD Primary Care Provider Eric Pretty MD Primary Care Provider [phone] Kale MONTANA MD, Master Hunt Unavailable [phone] Dominic Young MD Unavailable [phone] Carlos Hernandez MD Unavailable [phone] Encounter Details Date Type Department Care Team (Late st Contact Info) Description 11/07/2016 Orders Only [facility] ProviderChuck MD [address] [place] [address] Social History Tobacco Use Types Packs/Day Years Used Date Smoking Tobacco: Former Alcohol Use Standard Drinks/Week Comments Yes 0 (1 standard drink = 0.6 oz pur e alcohol) Sex and Gender Information Value Date Recorded Sex Assigned at Not on file 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 us Historical Provider [facility] JONAS AGEE Final Result documented in this encounter Visit Diagnoses Not on filedocumented in this encounter Care Teams Laundromat Worker Relationship Specialty Start Date End Date Jarvis Harding [address] [place] [address] PCP - General 02/14/17 08/27/17 Jarvis Harding [address] [place] [place] [address] PCP - General 07/13/14 02/13/17 Kindra Fernandez MD [address] [place] [place] [address] PCP - General Family Practice 08/28/17 01/27/18 Eric Pretty MD [address] [facility] [address] [place] [address] PCP - General Internal Medicine 01/28/18 Master Henley III, MD [address] [email or web address] [address] [place] [address] Consulting Physician Rheumatology 01/28/18 01/26/24 Dominic Young MD [address] [facility] [address] [place] [address] Consulting Physician Cardiology 01/04/20 Carlos Hernandez MD [address] [place] [address] Consulting Physician Rheumatology 01/27/24 documented as of this encounter
--- OUTSIDE RECORDS SUMMARY | 2025-02-16 10:37 | XMS_ITS | Encounter Summary ---
Author Organization [facility] Address [address] [place] [address] Care Team Providers Care Soft Work Wrapper Layer And Examiner Name Role Phone Eric Pretty MD Primary Care Provider [phone] Kale MONTANA MD, Master Hunt Unavailable Dominic Young MD Unavailable [phone] Carlos Hernandez MD Unavailable [phone] Encounter Details Date Type Department Care Team (Late st Contact Info) Description 04/14/2019 Telephone [facility] [address] [facility] [address] [place] [address] Kia Kwan MD [address] [facility] [place] [address] Social History Tobacco Use Types Packs/Day Years Used Date Smoking Tobacco: Every Day Pipe Last attempted to quit: 02/22/1989 Smokeless Tobacco: Former Comments:Quit cigarettes, sm oking pipe currently Alcohol Use Standard Drinks/Week Comments Yes 1 (1 standard drink = 0.6 oz pur e alcohol) Sex and Gender Information Value Date Recorded Sex Assigned at Not on file 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 documented as of this encounter Visit Diagnoses Not on filedocumented in this encounter Care Teams Soft Work Wrapper Layer And Examiner Relationship Specialty Start Date End Date Eric Pretty MD [address] [facility] [address] [place] [address] PCP - General Internal Medicine 01/28/18 Master Henley III, MD [address] [place] [address] Consulting Physician Rheumatology 01/28/18 01/26/24 Dominic Young MD [address] [facility] [address] [place] [address] Consulting Physician Cardiology 01/04/20 Carlos Hernandez MD [address] [place] [address] Consulting Physician Rheumatology 01/27/24 documented as of this encounter
--- OUTSIDE RECORDS SUMMARY | 2025-02-16 10:37 | XMS_ITS | Encounter Summary ---
Author Organization [facility] Address [address] [facility] [address] [place] [address] Care Team Providers Care Merchandising Director Name Role Phone Jarvis Harding Primary Care Provider Jarvis Harding Primary Care Provider Jarvis Harding Primary Care Provider Jarvis Harding Primary Care Provider Jarvis Harding Primary Care Provider Jarvis Harding Primary Care Provider Kindra Fernandez MD Primary Care Provider Eric Pretty MD Primary Care Provider [phone] Kale MONTANA MD, John J. 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 Gender Identity Not on file Sexual Orientation Not on file documented as of this encounter Plan of Treatment Not on file documented as of this encounter Procedures Procedure Name Priority Date/Time Associated Diagnosis Comments SCAN - LABS 01/27/2010 documented in this encounter Results * SCAN - LABS (01/27/2010) us Provider Scanning Final Result documented in this encounter Visit Diagnoses Not on filedocumented in this encounter Care Teams Merchandising Director Relationship Specialty Start Date End Date Jarvis Harding [address] [place] [address] PCP - General 02/14/17 08/27/17 Jarvis Harding [address] [place] [address] PCP - General 07/13/14 02/13/17 Jarvis Harding [address] [place] [address] PCP - General 03/03/12 07/12/14 Jarvis Harding [address] [place] [address] PCP - General 02/18/12 03/02/12 Jarvis Harding [address] [place] [address] PCP - General 02/11/12 02/17/12 Jarvis Harding [address] [place] [address] PCP - General 07/24/11 02/10/12 Kindra Fernandez MD [address] [place] [address] PCP - General Family Practice 08/28/17 01/27/18 Eric Pretty MD [address] [facility] [address] [facility] [address] [place] [address] PCP - General Internal Medicine 01/28/18 Master Henley III, MD [address] [facility] [address] [place] [address] Consulting Physician Rheumatology 01/28/18 01/26/24 Dominic Young MD [address] [facility] [address] [place] [address] Consulting Physician Cardiology 01/04/20 Carlos Hernandez MD [address] [place] [address] Consulting Physician Rheumatology 01/27/24 documented as of this encounter
--- OUTSIDE RECORDS SUMMARY | 2025-02-16 10:37 | XMS_ITS | Encounter Summary ---
Author Organization [facility] Address [address] [address] Care Team Providers Care Motion Picture Projectionist Apprentice Name Role Phone Jarvis Harding Primary Care Provider [phone] Jarvis Harding Primary Care Provider [phone] Kindra Fernandez MD Primary Care Provider Eric Pretty MD Primary Care Provider [phone] Kale MONTANA MD, Master Hunt Unavailable [phone] Dominic Young MD Unavailable [phone] Carlos Hernandez MD Unavailable [phone] Encounter Details Date Type Department Care Team (Late st Contact Info) Description 12/17/2016 Orders Only [facility] ProviderChuck MD [address] [place] [address] Social History Tobacco Use Types Packs/Day Years Used Date Smoking Tobacco: Former Alcohol Use Standard Drinks/Week Comments Yes 0 (1 standard drink = 0.6 oz pur e alcohol) Sex and Gender Information Value Date Recorded Sex Assigned at Not on file 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 us Historical Provider [facility] JONAS AGEE Final Result documented in this encounter Visit Diagnoses Not on filedocumented in this encounter Care Teams Motion Picture Projectionist Apprentice Relationship Specialty Start Date End Date Jarvis Harding [address] [place] [address] PCP - General 02/14/17 08/27/17 Jarvis Harding [address] [place] [address] PCP - General 07/13/14 02/13/17 Kindra Fernandez MD [address] [place] [address] PCP - General Family Practice 08/28/17 01/27/18 Eric Pretty MD [address] [facility] [address] [place] [address] PCP - General Internal Medicine 01/28/18 Master Henley III, MD [address] [facility] [address] [place] [address] Consulting Physician Rheumatology 01/28/18 01/26/24 Dominic Young MD [address] [facility] [address] [place] [address] Consulting Physician Cardiology 01/04/20 Carlos Hernandez MD [address] [place] [address] Consulting Physician Rheumatology 01/27/24 documented as of this encounter
--- NOTE | 2025-02-16 11:30 | NEURO_ITS ---
Impression: # Complains of gait dysfunction.Known diabetic. ? # Subtle bilateral Carpal Tunnel Syndrome. ? 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 ? # Needle/EMG exam reveals neurogenic changes but no fibs. ? # Clinical correlation recommended. ?Nerve Conduction Studies Anti Sensory Summary Table ?Stim Site NR Peak (ms) P-T Amp (?V) Site1 Site2 Delta-P (ms) Dist (cm) Rick (m/s) Left Median Anti Sensory (2-3nd Digit) Wrist ? 4.2 17.6 Wrist 2-3nd Digit 4.2 14.0 33 Wrist ? 4.5 30.4 Wrist 2-3nd Digit 4.2 14.0 33 Right Median Anti Sensory (2-3nd Digit) Wrist ? 4.6 9.6 Wrist 2-3nd Digit 4.6 14.0 30 Wrist ? 5.1 8.0 Wrist 2-3nd Digit 4.6 14.0 30 Left Radial Anti Sensory (Base 1st Digit) Wrist ? 2.5 11.7 Wrist Base 1st Digit 2.5 0.0 Right Radial Anti Sensory (Base 1st Digit) Wrist ? 3.0 10.2 Wrist Base 1st Digit 3.0 0.0 Left Sup Fibular Anti Sensory (Ant Lat Mall)??? NO RESPONSE 14 cm NR 14 cm Ant Lat Mall 16.0 Right Sup Fibular Anti Sensory (Ant Lat Mall)??? NO RESPONSE 14 cm NR 14 cm Ant Lat Mall 16.0 Left Sural Anti Sensory (Lat Mall)??? NO RESPONSE Calf NR Calf Lat Mall 16.0 Right Sural Anti Sensory (Lat Mall)??? NO RESPONSE Calf NR Calf Lat Mall 16.0 Left Ulnar Anti Sensory (5th Digit) Wrist ? 2.9 33.0 Wrist 5th Digit 2.9 14.0 48 Right Ulnar Anti Sensory (5th Digit) Wrist ? 4.4 34.6 Wrist 5th Digit 4.4 14.0 32 Motor Summary Table ?Stim Site NR Onset (ms) O-P Amp (mV) Site1 Site2 Delta-0 (ms) Dist (cm) Rick (m/s) Left Median Motor (Abd Poll Brev) Wrist ? 4.1 6.1 Elbow Wrist 6.4 32.0 50 Elbow ? 10.5 5.4 Right Median Motor (Abd Poll Brev) Wrist ? 4.9 2.6 Elbow Wrist 6.6 32.0 48 Elbow ? 11.5 2.0 Left Peroneal Motor (Vastus Med)??? NO RESPONSE Ankle NR Popit Ankle 0.0 Popit NR Right Peroneal Motor (Vastus Med)??? NO RESPONSE Ankle NR Popit Ankle 0.0 Popit NR Left Tibial Motor (Abd Man Brev)??? NO RESPONSE Ankle NR Knee Ankle 0.0 Knee NR Right Tibial Motor (Abd Man Brev)??? NO RESPONSE Ankle NR Knee Ankle 0.0 Knee NR Left Ulnar Motor (Abd Dig Minimi) Wrist ? 2.7 5.9 A Elbow Wrist 7.0 32.0 46 A Elbow ? 9.7 3.7 B Elbow Wrist 5.5 26.0 47 B Elbow ? 8.2 3.7 Right Ulnar Motor (Abd Dig Minimi) Wrist ? 3.0 3.6 A Elbow Wrist 7.1 33.0 46 A Elbow ? 10.1 2.8 B Elbow Wrist 5.4 24.0 44 B Elbow ? 8.4 3.2 F Wave Studies ?NR F-Lat (ms) L-R F-Lat (ms) Left Median (Mrkrs) (Abd Poll Brev) ? 33.42 2.22 Right Median (Mrkrs) (Abd Poll Brev) ? 35.64 2.22 Left Peroneal (Mrkrs) (EDB)??? NO RESPONSE NR Right Peroneal (Mrkrs) (EDB)??? NO RESPONSE NR Left Tibial (Mrkrs) (Abd Hallucis)??? NO RESPONSE NR Right Tibial (Mrkrs) (Abd Hallucis)??? NO RESPONSE NR Left Ulnar (Mrkrs) (Abd Dig Min) ? 33.41 2.83 Right Ulnar (Mrkrs) (Abd Dig Min) ? 30.59 2.83 EMG ?Side Muscle Nerve Root Ins Act Fibs Amp Dur Recrt Comment Right 1stDorInt Ulnar C8-T1 Nml Nml Decr >12ms +2 Left 1stDorInt Ulnar C8-T1 Nml Nml Decr >12ms +2 Right ABD Dig Min Ulnar C8-T1 Nml Nml Decr >12ms +2 Left ABD Dig Min Ulnar C8-T1 Nml Nml Decr >12ms +2 Right Abd Poll Brev Median C8-T1 Nml Nml Decr >12ms +2 Left Abd Poll Brev Median C8-T1 Nml Nml Decr >12ms +2 Right Abd Poll Long Radial (Post Int) C7-8 Nml Nml Decr >12ms +2 Right AntTibialis Dp Br Fibular L4-5 Nml Nml Decr >12ms +3 Right BrachioRad Radial C5-6 Nml Nml Decr >12ms +2 Left BrachioRad Radial C5-6 Nml Nml Decr >12ms +2 Right Ext Dig Brev Dp Br Fibular L5, S1 Nml Nml Decr >12ms +4 Left Ext Dig Brev Dp Br Fibular L5, S1 Nml Nml Decr >12ms +4 Right Ext Digitorum Radial (Post Int) C7-8 Nml Nml Decr >12ms +2 Left Ext Digitorum Radial (Post Int) C7-8 Nml Nml Decr >12ms +2 Right Ext Indicis Radial (Post Int) C7-8 Nml Nml Decr >12ms +2 Left Ext Indicis Radial (Post Int) C7-8 Nml Nml Decr >12ms +2 Left Fibularis Long Sup Br Fibular L5-S1 Nml Nml Decr >12ms +3 Right Fibularis Long Sup Br Fibular L5-S1 Nml Nml Decr >12ms +3 Left Flex Dig Long Tibial L5-S2 Nml Nml Decr >12ms +3 Right Flex Dig Long Tibial L5-S2 Nml Nml Decr >12ms +3 Right FlexPolLong Median (Ant Int) C7-8 Nml Nml Decr >12ms +2 Right Gastroc Tibial S1-2 Nml Nml Decr >12ms +3 Left AntTibialis Dp Br Fibular L4-5 Nml Nml Decr >12ms +3 Left Gastroc Tibial S1-2 Nml Nml Decr >12ms +3 Right PronatorTeres Median C6-7 Nml Nml Decr >12ms +2 Left PronatorTeres Median C6-7 Nml Nml Decr >12ms +2 Right QuadratusFem QuadFemoris L4-5, S1 Nml Nml Decr >12ms +2 Left QuadratusFem QuadFemoris L4-5, S1 Nml Nml Decr >12ms +2 MTDD
== END 2025-02-16 09:46 | disposition home or self-care (01) ==
LOC: ANHNEURO 09:45
PROVIDERS: PCP Internal Medicine; Visit Provider Internal Medicine
DX: G56.03 Carpal tunnel syndrome, bilateral upper limbs (principal); M62.81 Muscle weakness (generalized); G72.9 Myopathy, unspecified
CPT/HCPCS: 95886; 95913

== ENCOUNTER 2025-03-01 10:04 | Outpatient (CLI) | payer MEDICARE, SELFPAY ==
--- OUTSIDE RECORDS SUMMARY | 2025-03-01 10:54 | XMS_ITS | Encounter Summary ---
Author Organization [facility] Address 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 Gender Identity Not on file Sexual Orientation Not on file documented as of this encounter Plan of Treatment Upcoming Encounters Date Type Department Care Team (Late st Contact Info) Description 03/04/2025 1:15 PM CDT Office Visit [facility] EP AT [address] [place] [address] Tani Patel MD [address] [place] [address] [address] [place] [address] 05/06/2025 12:00 PM CDT Procedure visit [facility] EP AT [place] [address] [facility] [address] [place] [address] documented as of this encounter Visit Diagnoses Not on filedocumented in this encounter Care Teams Racing Car Driver Relationship Specialty Start Date End Date Eric Pretty MD [address] [place] [address] PCP - General Internal Medicine 11/24/19 documented as of this encounter
--- OUTSIDE RECORDS SUMMARY | 2025-03-01 10:54 | XMS_ITS | Continuity of Care Document ---
Author Organization [facility] [place] Address [address] [place] [address] Phone Care Team Providers Care Slicing Machine Operator/Tender Name Role Phone Chance Monroy Unavailable Unavailable Procedures Procedure Date Visual Field Examination(s) Office/outpatient Visit, Est Corneal Pachymetry Fundus Photography W/ Report Eye Exam, New Patient Advance Directives Directive Yes / No Effective Date File Name No Information Encounters Encounter Description Practice Location Reason(s) For Visit Diagnoses Date Provider Providers Copied on Encounter [facility], [address] [place] [address] [address], [place], [place], [id number], tel:[phone] [facility] No Information [address], [place], [address], . tel:[phone] Referring Provider: Alondra Thomas [address], [place], [address]. tel:[phone] Office/outpat ient Visit, Est [facility], [address] [place] [address] [address], [place], [place], [id number], tel:[phone] [facility] No Information [address], [place], [address], [place]. tel:[phone] Referring Provider: Chance Wagner, [address], [place], [address]. tel:[phone] [facility], [address], [place], [place], [id number], [place] tel:[phone] [facility] No Information [address] , [address], [place], [address], [place]. tel:[phone] Family History Family Member Type Diagnosis Age At Onset No Information Payers Payer name Insurance type Covered green party ID Authoriza tion(s) No Information Social [...]
--- OUTSIDE RECORDS SUMMARY | 2025-03-01 10:54 | XMS_ITS | Encounter Summary ---
Author Organization [facility] Address 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 Gender Identity Not on file Sexual Orientation Not on file documented as of this encounter Plan of Treatment Upcoming Encounters Date Type Department Care Team (Late st Contact Info) Description 03/04/2025 1:15 PM CDT Office Visit [facility] HEART AND VASCULAR EP AT [place] [address] [facility] [address] [place] [address] Tani Patel MD [facility] [address] [facility] [address] [place] [address] 05/06/2025 12:00 PM CDT Procedure visit [facility] EP AT [place] [address] [facility] [address] [place] [address] documented as of this encounter Visit Diagnoses Not on filedocumented in this encounter Care Teams Field Care Manager Relationship Specialty Start Date End Date Eric Pretty MD [address] [place] [address] PCP - General Internal Medicine 11/24/19 documented as of this encounter"
--- OUTSIDE RECORDS SUMMARY | 2025-03-01 10:55 | XMS_ITS | Referral Summary ---
Author Organization [facility] [address] Address [address] [place] [address] Care Team Providers Care Fountain Clerk Name Role Phone Eric Pretty MD Primary Care Provider [phone] Dominic Young MD Unavailable [phone] Carlos Hernandez MD Unavailable [phone] Encounters Date Type Department Care Team Description 12/24/2024 1:00 PM JEWEL CUPPING MACHINE OPERATOR Office Visit [address] [address] Olga Bueno [place] Rheumatoid arthritis [...] daily 30 tablet 2 02/12/20 25 Active folic acid (FOLVITE) 1 mg [...] S4 Assessment & Plan (12/24/2024 12:49 PM JEWEL CUPPING MACHINE OPERATOR): BMD 06/09/24: LFN 0.761, tscore -1.2 Total [...] occurs. Assessment & Plan (09/23/2024 2:49 PM JEWEL CUPPING MACHINE OPERATOR): BMD 06/09/24: LFN 0.761, tscore -1.2 Total [...] candidate Assessment & Plan (09/23/2024 1:14 PM JEWEL CUPPING MACHINE OPERATOR): Xrays 2016: Moderate osteoarthritis of the acromioclavicular [...] walks. Assessment & Plan (12/12/2022 3:07 PM JEWEL CUPPING MACHINE OPERATOR): R shoulder hurting for the past 2-3 days. May have been triggered by carrying in grocery bags. Hx rotator cuff tears per pt's report. Recommend heat/ice, rest. Will order PT. Consider seeing ortho if not improving Atherosclerotic cardiovascular disease Assessment & Plan (11/12/2022 3:08 PM JEWEL CUPPING MACHINE OPERATOR): S/p multiple MIs/cardiac arrest, sick sinus, CHF. Has pacemaker. 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 On eliquis and clopidogrel History of DVT of lower extremity 11/12/2022 History of prostate cancer 11/12/2022 Overview (11/12/2022): Treated with radiation in 2017 Chronic pain syndrome 12/16/2021 Type 2 diabetes mellitus wit h diabetic neuropathy, unspecified 11/17/2020 Chronic pain of right knee 06/08/2019 Assessment & Plan (09/23/2024 1:05 PM JEWEL CUPPING MACHINE OPERATOR): Mild OA on xray from 06/04. Had [...] benefit. Assessment & Plan (01/04/2020 12:03 PM JEWEL CUPPING MACHINE OPERATOR): Mild OA on xray from 06/04. Had cortisone shots years ago but they spiked his sugars. Had zilretta on 10/29/19 as this formulation causes less systemic steroid effect than regular triamcinolone injection. However, he reported no benefit. Assessment & Plan (10/26/2019 2:15 PM JEWEL CUPPING MACHINE OPERATOR): Mild OA on xray from 06/04. Had [...] mgmt: [facility] ([facility]) in [facility] Assessment & Plan (12/24/2024 2:28 PM JEWEL CUPPING MACHINE OPERATOR): 3 prior back surgeries and still having a lot of pain. Decided against pursuing any more surgery. Has been to [facility] in [facility]. Continues to take gabapentin for neuropathic pain. Assessment & Plan (09/23/2024 1:05 PM JEWEL CUPPING MACHINE OPERATOR): 3 prior back surgeries and still having a lot of pain. Decided against pursuing any more surgery. Has been to [facility] in [facility]. Continues to take gabapentin for neuropathic pain. Assessment & Plan (06/22/2024 3:21 PM CDT): 3 prior back surgeries and still having a lot of pain. Decided against pursuing any more surgery. Has been to [facility] in [facility]. Continues to take gabapentin for neuropathic pain. Assessment & Plan (03/16/2024 4:37 PM CDT): 3 prior back surgeries and still having a lot of pain. Decided against pursuing any more surgery. Has been to [facility] in [facility]. Continues to take gabapentin for neuropathic [...] surgery. Has been to pain mgmt in [facility]. Continues to take gabapentin for neuropathic pain Assessment & Plan (07/28/2023 3:39 PM CDT): 3 prior back surgeries and still having a lot of pain. Decided against pursuing any more surgery. Has been to pain mgmt in [facility]. Continues to take gabapentin for neuropathic pain Assessment & Plan (05/27/2023 4:30 PM CDT): 3 prior back surgeries and still having a lot of pain. Thinking about going back to see nsg for opinion if there is anything else he can do. Has been to pain mgmt in [facility]. Continues to take gabapentin for neuropathic pain Assessment & Plan (11/12/2022 3:05 PM JEWEL CUPPING MACHINE OPERATOR): 3 prior back surgeries and he does not want to have any additional surgery. Sees pain mgmt in [facility]. Discussed pain stimulator but he deferred for now. Continues to take gabapentin for neuropathic pain Assessment & Plan (01/04/2020 12:04 PM JEWEL CUPPING MACHINE OPERATOR): No surgery planned. Continue to f/u with pcp and pain mgmt. Encouraged to continue water exercise. Declines PT. Discuss weight loss treatments with pcp. He used to be on duloxetine for mood and chronic pain and can't remember why he stopped. He would be willing to restart this now. Begin 30mg daily. Assessment & Plan (10/26/2019 2:16 PM JEWEL CUPPING MACHINE OPERATOR): No surgery planned. 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 Just started this today. Had episode of lightheadedness coming into the office today, better with sitting. Also describes vertigo sometimes and I suggested this might represent a different problem, discuss with pcp. High risk medications (not anticoagulants) long- term use 01/29/2018 Overview (08/10/2019): Neg quantiferon 12/18 Neg hepatitis 12/18 Assessment & Plan (12/24/2024 12:50 PM JEWEL CUPPING MACHINE OPERATOR): Neg quantiferon 12/18 Neg hepatitis 12/18 utd , [id number], yearly flu shot. Had shingrix Had RSV vaccine Had original COVID vaccine series but not additional boosters Assessment & Plan (09/23/2024 1:19 PM JEWEL CUPPING MACHINE OPERATOR): Neg quantiferon 12/18 Neg hepatitis 12/18 utd [id number], lwjakcqfm71, yearly flu shot. Had shingrix Had RSV vaccine Had original COVID vaccine series but not additional boosters Assessment & Plan (06/22/2024 1:27 PM CDT): Neg quantiferon 12/18 Neg hepatitis 12/18 utd xrgtqoy89, rlxaeajtw01, yearly flu shot. Recommend shingrix, COVID booster Assessment & Plan (03/16/2024 2:20 PM CDT): Neg quantiferon 12/18 Neg hepatitis 12/18 utd stdrhyd53, szilcoebu71, yearly flu shot. Recommend shingrix, COVID booster Assessment & Plan (01/27/2024 1:06 PM CDT): Neg quantiferon 12/18 Neg hepatitis 12/18 utd , pkrmrewko74, yearly flu shot. Recommend shingrix, COVID booster Assessment & Plan (10/28/2023 3:46 PM JEWEL CUPPING MACHINE OPERATOR): Neg quantiferon 12/18 Neg hepatitis 12/18 utd dvxawle14, vtboagzzs94, yearly flu shot. Recommend shingrix, COVID booster Assessment & Plan (07/28/2023 2:25 PM CDT): Neg quantiferon 12/18 Neg hepatitis 12/18 utd txecrvj54, vtuqbhbfw91, yearly flu shot. Recommend shingrix, COVID booster Assessment & Plan (05/27/2023 1:55 PM CDT): Neg quantiferon 12/18 Neg hepatitis 12/18 utd fwljsna92, euklbnkex58, flu shot. Recommend shingrix, COVID boosters if not done Assessment & Plan (04/17/2023 4:33 PM CDT): Neg quantiferon 12/18 Neg hepatitis 12/18 utd euzfhxt89, dfhotcnhw89, flu shot. Recommend shingrix, COVID boosters if not done Assessment & Plan (12/12/2022 3:06 PM JEWEL CUPPING MACHINE OPERATOR): Neg quantiferon 12/18 Neg hepatitis 12/18 utd ingrjmm03, bqorwkoyc44, flu shot. Recommend shingrix, COVID boosters if not done Will advise Evusheld if he goes back on Rituxan in the future Assessment & Plan (11/12/2022 3:05 PM JEWEL CUPPING MACHINE OPERATOR): Neg quantiferon 12/18 Neg hepatitis 12/18 utd xgbidsx02, rwuseqbqy83, flu shot. Recommend shingrix, COVID boosters if not done Will advise Evusheld if he goes back on Rituxan in the future Assessment & Plan (01/04/2020 11:23 AM JEWEL CUPPING MACHINE OPERATOR): Neg quantiferon 12/18 Neg hepatitis 12/18 utd zajfdlx13, gujlyfqjc79, flu shot. Recommend shingrix Assessment & Plan (10/26/2019 11:19 AM JEWEL CUPPING MACHINE OPERATOR): Neg quantiferon /18 Neg hepatitis 12/18 utd jqluirq53, ceepkkvkw50, flu shot. Recommend shingrix Assessment & Plan (08/10/2019 11:37 AM CDT): Neg quantiferon 12/18 Neg hepatitis 12/18 Assessment & Plan (06/08/2019 12:09 PM CDT): Neg quantiferon 12/18 Neg hepatitis 12/18 Assessment & Plan (03/26/2019 8:13 AM CDT): Neg quantiferon 12/18 Neg hepatitis 12/18 Assessment & Plan (12/24/2018 9:59 PM JEWEL CUPPING MACHINE OPERATOR): Neg quantiferon 12/18 Neg hepatitis 12/18 Syncope and collapse 08/28/2017 Orthostasis 08/28/2017 Coronary artery disease invo lving [place] coronary artery of [place] heart with angina pectoris 08/28/2017 Assessment & Plan (01/04/2020 12:04 PM JEWEL CUPPING MACHINE OPERATOR): Pt had abnormal stress test followed by cardiac cath, stenting. Symptoms currently improved. 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 Requested lipid panel so will [...] Overview (02/21/2017): Seasonal allergies Rheumatoid arthritis of [facility] sites with negative rheumatoid factor 05/06/2011 Overview (04/17/2023): Failed humira, remicade, orenica, and actemra 1st Rituxan series: 11/23/18, 12/08/18 2nd series 06/14/19, 07/01/19 Avoid DRISS due to hx DVT, CVD Assessment & Plan (12/24/2024 2:28 PM JEWEL CUPPING MACHINE OPERATOR): cdai = 33, high Was not seen [...] needed Assessment & Plan (09/23/2024 2:48 PM JEWEL CUPPING MACHINE OPERATOR): cdai = 17, moderate Was not seen [...] weeks Assessment & Plan (10/28/2023 3:45 PM JEWEL CUPPING MACHINE OPERATOR): cdai = 10, low, improving Was not [...] month Assessment & Plan (12/12/2022 3:05 PM JEWEL CUPPING MACHINE OPERATOR): cdai = 27, high Last seen in [...] month Assessment & Plan (11/12/2022 3:10 PM JEWEL CUPPING MACHINE OPERATOR): cdai = 32, high Last seen in [...] month Assessment & Plan (01/04/2020 11:21 AM JEWEL CUPPING MACHINE OPERATOR): cdai = 26, high Pt received first [...] months Assessment & Plan (10/26/2019 2:17 PM JEWEL CUPPING MACHINE OPERATOR): cdai = 30 Pt received first Rituxan [...] today. Assessment & Plan (12/24/2018 9:58 PM JEWEL CUPPING MACHINE OPERATOR): cdai = 13, low-moderate Pt received first [...] doing. Assessment & Plan (10/26/2018 9:41 AM JEWEL CUPPING MACHINE OPERATOR): High cdai. Patient has been having more [...] on file Legal Sex Male 3:50 PM JEWEL CUPPING MACHINE OPERATOR Gender Identity Not on file Sexual Orientation Not on file Occupation Industry Job Start Date Job End Date Retired Not on file Not on file Not on file Last Filed Vital Signs Vital Sign Reading Time Taken Comments Blood Pressure 126/60 12/24/2024 12:46 PM JEWEL CUPPING MACHINE OPERATOR Pulse 115 12/24/2024 12:46 PM JEWEL CUPPING MACHINE OPERATOR Temperature 36.7 C (98 F) 04/15/2019 1:35 PM CDT Respiratory Rate 16 04/15/2019 3:39 PM CDT Oxygen Saturation 93% 12/24/2024 12: 46 PM JEWEL CUPPING MACHINE OPERATOR Inhaled Oxygen Concentration - - Weight 122.6 kg (270 lb 3.2 oz) 025 12:46 PM JEWEL CUPPING MACHINE OPERATOR Height 180.3 cm (5' 11 ) 12/24/2024 12: 46 PM JEWEL CUPPING MACHINE OPERATOR Body Mass Index 37.69 12/24/2024 12:46 PM JEWEL CUPPING MACHINE OPERATOR Plan of Treatment Not on file Goals Goal Patient Goal Type Associated Problems Recent Progress Patient-Stated? Author CCM Chronic Pain Care Plan Chronic Care Management No Tiera Eddy, DONN Note: Problem: Chronic Pain Goals: 1. Minimize [...] stairs Contact your local community or senior alma for information on exercise, fall prevention programs, or options for improving home safety. Medical Devices Implanted Type Area Glass Blower Helper Device Identifier Shelf Expiration Date Model / Serial / Lot Stents Heart Description:cardiac stents Hardware Spine Lumbar Description:lumbar hardware Procedures Procedure Name Priority Date/Time Associated Diagnosis Comments ERYTHROCYTE SEDIMENTATION RATE Routine 12/24/2024 1:20 PM JEWEL CUPPING MACHINE OPERATOR 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 factor (HCC) High risk medications (not anticoagulants) long-term use CRP (ACUTE PHASE) Routine 12/24/2024 1:2 0 PM JEWEL CUPPING MACHINE OPERATOR 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 factor (HCC) High risk medications (not anticoagulants) long-term use COMPREHENSIVE METABOLIC PANEL Routine 12/24/2024 1:20 PM JEWEL CUPPING MACHINE OPERATOR 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 factor (HCC) High risk medications (not anticoagulants) long-term use CBC WITH AUTO DIFFERENTIAL Routine 12/24/2024 1:20 PM JEWEL CUPPING MACHINE OPERATOR 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 factor (HCC) High risk medications (not anticoagulants) long-term use LIPID PANEL Routine 01/04/2020 11:48 AM JEWEL CUPPING MACHINE OPERATOR HEPATITIS PANEL, ACUTE Routine 12/18/201 8 11:17 AM JEWEL CUPPING MACHINE OPERATOR HEMOGLOBIN A1C Routine 08/05/2014 3:33 PM CDT from Last 3 Months or Most Recently Relevant to Health Maintenance Results * (ABNORMAL) CBC with auto differential (12/24/2024 1:20 PM JEWEL CUPPING MACHINE OPERATOR) WBC 5.4 3.8 - 10.8 Thousand/u L [...] [facility] Blood 12/24/2024 1:20 PM JEWEL CUPPING MACHINE OPERATOR 12/24/2024 1:21 PM JEWEL CUPPING MACHINE OPERATOR Result [facility] Olga Bueno [place] LAB BLOOD ORDERABLES Fin al Result Performing Organization Address [facility] de Phone Number [facility] [address] [place] [address] * (ABNORMAL) Erythrocyte sedimentation rate (12/24/2024 1:20 PM JEWEL CUPPING MACHINE OPERATOR) Erythrocyte sedimentation rate 22(H) < OR = 20 mm/h [facility] Blood 12/24/2024 1:20 PM JEWEL CUPPING MACHINE OPERATOR 12/24/2024 1:21 PM JEWEL CUPPING MACHINE OPERATOR Result [facility] Olga Bueno [place] LAB BLOOD ORDERABLES Fin al Result Performing Organization Address [facility] de Phone Number [facility] [address] [facility] [place] [address] * CRP (acute phase) (12/24/2024 1:20 PM JEWEL CUPPING MACHINE OPERATOR) C-RP 6.5 <8.0 mg/L [facility] Blood 12/24/2024 1:20 PM JEWEL CUPPING MACHINE OPERATOR 12/24/2024 1:21 PM JEWEL CUPPING MACHINE OPERATOR Result [facility] Olga Bueno [place] LAB BLOOD ORDERABLES Fin al Result Performing Organization Address [facility] de Phone Number [facility] [address] [facility] [place] [address] * (ABNORMAL) Comprehensive metabolic panel (12/24/2024 1:20 PM JEWEL CUPPING MACHINE OPERATOR) Glucose 96 65 - 99 mg/dL [facility] [...] [facility] Blood 12/24/2024 1:20 PM JEWEL CUPPING MACHINE OPERATOR 12/24/2024 1:21 PM JEWEL CUPPING MACHINE OPERATOR [address] LAB BLOOD ORDERABLES Fin al Result [facility] [address] [place] [address] * (ABNORMAL) Lipid panel (01/04/2020 11:48 AM JEWEL CUPPING MACHINE OPERATOR) Cholesterol 155 <200 mg/dL [facility] [place] HDL 50 > OR = 40 mg/dL [facility] [place] Triglycerides 355(H) <150 mg/dL [facility] [place] Comment: If a non-fasting specimen was collected, consider repeat triglyceride testing on a fasting specimen if clinically indicated. Darshan et al. J. of Clin. Lipidol. 2015;9:129-169. LDL 62 mg/dL (calc) [facility] [place] Comment: Reference range: <100 Desirable range <100 mg/dL for primary prevention; <70 mg/dL for patients with CHD or diabetic patients with > or = 2 CHD risk factors. LDL-C is now calculated using the Ariane calculation, which is a validated novel method providing better accuracy than the Friedewald equation in the estimation of LDL-C. Girma SS et al. GINA. 2013;310(57): 2914-6396 (http://education.StreetSpark/faq/GIK457) Chol/HDL ratio 3.1 <5.0 (calc) [facility] [place] Non-HDL, (LDL+VLDL) 105 <130 mg/dL (calc) [facility] [place] Comment: For patients with diabetes plus 1 major ASCVD risk factor, treating to a non-HDL-C goal of <100 mg/dL (LDL-C of <70 mg/dL) is considered a therapeutic option. 01/04/2020 11:4 8 AM JEWEL CUPPING MACHINE OPERATOR 01/04/2020 11:49 AM JEWEL CUPPING MACHINE OPERATOR Narrative Resulting Agency Comment Performing Organization Information: Site ID: [id number] Name: [facility] Address: [address] [place] [address] Director: Angie Vaca D.O., MPH [address] LAB BLOOD ORDERABLES Fin al Result [facility] [place] * Hepatitis panel, acute (11/03/2018 11:17 AM JEWEL CUPPING MACHINE OPERATOR) Hep A IgM NON-REACTI VE NON-REACTI VE [facility] [place] HepBsAg NON-REACTI VE NON-REACTI VE [facility] [place] Hep B core IgM NON-REACTI VE NON-REACTI VE [facility] [place] Hep C Ab NON-REACTI VE NON-REACTI VE [facility] [place] SIGNAL TO CUT-OFF 0.02 <1.00 [facility] [place] 11/03/2018 11:1 7 AM JEWEL CUPPING MACHINE OPERATOR 11/03/2018 11:18 AM JEWEL CUPPING MACHINE OPERATOR Narrative Resulting Agency Comment Performing Organization Information: Site ID: [place] Name: [facility] Address: [address] [place] [address] Director: Angie Vaca D.O., MPH Master Henley III, MD LAB MICROBIOLOGY - GENERAL ORDERABLES Final Result Performing Organization Address [facility] Co de Phone Number [facility] [place] * (ABNORMAL) Hemoglobin A1c (08/05/2014 3:33 PM [...] of diabetes for children. Test performed at [facility] [id number] [place] [address] Director: ANGIE VACA DO,MPH 08/05/2014 3:[address] LAB BLOOD ORDERABLES Fin al Result Performing Organization Address [facility] Co de Phone Number [facility] HISTORICAL RESULTS from Last 3 Months or Most Recently Relevant to Health Maintenance Insurance MEDICARE MEDICARE REPLACED BY [facility] MEDICARE REPLACED BY [facility] Care Teams Fountain Clerk Relationship Specialty Start Date End Date Eric Pretty MD [address] [facility] [address] [place], [place] [id number] PCP - General Internal Medicine 01/28/18 Dominic Young MD [address] [facility] [address] [place] [address] Consulting Physician Cardiology 01/04/20 Carlos Hernandez MD [address] [place] [address] Consulting Physician Rheumatology 01/27/24
--- OUTSIDE RECORDS SUMMARY | 2025-03-01 10:56 | XMS_ITS | Clinical Summary ---
Author Organization [facility] Address [address] [facility] [place] [address] Care Team Providers Care Policy Manager Name Role Phone Eric Pretty MD Primary Care Provider [phone] Source Comments [facility],non-owned Affiliates and Associated Physician Practices is amultiple site organization consisting of ambulatory clinics and hospital sitesin [place], [place], [place] and [place]. This disclosure is being madepursuant to the Care Everywhere program and may not contain all information available regarding this patient. Last updated 18.[facility] Social History Tobacco Use Types Packs/Day Years Used Date Smoking Tobacco: Never Assessed Sex and Gender Information Value Date Recorded Sex Assigned at Not on file Legal Sex Male 7:02 AM EXTERN Gender Identity Not on file Sexual Orientation [...] age to complete this topic Insurance MEDICARE MEDICARE [facility] Address: [address] [place] [address] MEDICARE Care Teams Policy Manager Relationship Specialty Start Date End Date Eric Pretty MD [address] [place] [address] PCP - General 01/15/23
--- OUTSIDE RECORDS SUMMARY | 2025-03-01 10:56 | XMS_ITS | Encounter Summary ---
Author Organization [facility] Address [address] [place] [address] Phone Care Team Providers Care Machine Sewer Name Role Phone Eric Pretty MD Primary Care Provider [phone] Kale MONTANA MD, Master Hunt Unavailable [phone] Dominic Young MD Unavailable [phone] Carlos Hernandez MD Unavailable [phone] Reason for Referral * Diagnostic Imaging (Routine) - Closed Specialty Diagnoses / Procedures Referred By Contac t Referred To Contact Radiology Diagnoses Arthrodesis status Foraminal stenosis of lumbar region Lumbar radiculopathy Procedures CT Lumbar Spine WO Contrast Denise Walker CNS Phone: tel: fax: [facility] [address] Referral ID Status Reason Start Date Expiration Date Visits Re quested Visits Authorized [id number] Closed 03/08/2019 09/16/2020 1 1 * Consultation (Routine) - Closed Specialty Diagnoses / Procedures Referred By Contac t Referred To Contact Pain Management Diagnoses Arthrodesis status Foraminal stenosis of lumbar region Lumbar radiculopathy Denise Walker CNS Phone: tel: fax: Kia Kwan MD [address] [place] [address] Phone: tel: fax: Referral ID Status Reason Start Date Expiration Date V isits Requested Visits Authorized [id number] Closed Specialty Services Required 03/08/2019 09/16/2020 1 1 Scheduling Instructions Please schedule for left L4-L5 transforaminal injection.i Question Answer Please select the performing region: [facility] [157] To provider: KIA KWAN [[id number]] # of visits: 1 Encounter Details Date Type Department Care Team (Late st Contact Info) Description 03/08/2019 Orders Only [facility] Orthopaedic Surgery [address] [facility] 1st [address] [place] [id number] Denise Walker CNS [address] [facility] [address] [place] [address] Arthrodesis status (Primary Dx); Foraminal stenosis of [...] on file Legal 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 Dictated by: rPem Rehman M.D. The radiology attending physician has [...] signed by: Dwayne Mann M.D. Denise Walker [facility] IMG CT PROCEDURES Final Res ult documented in this encounter Visit Diagnoses Diagnosis Arthrodesis status- Primary Foraminal stenosis of lumbar region Lumbar radiculopathy Thoracic or lumbosacral neuritis or radiculitis, unspecified Arthrodesis status Foraminal stenosis of lumbar region Lumbar radiculopathy Thoracic or lumbosacral neuritis or radiculitis, unspecified documented in this encounter Care Teams Machine Sewer Relationship Specialty Start Date End Date Eric Pretty MD [address] [place] [address] PCP - General Internal Medicine 01/28/18 Master Henley III, MD [address] [place] [address] Consulting Physician Rheumatology 01/28/18 01/26/24 Dominic Young MD [address] [facility] [address] [place] [address] Consulting Physician Cardiology 01/04/20 Carlos Hernandez MD [address] [place] [address] Consulting Physician Rheumatology 01/27/24 documented as of this encounter
--- OUTSIDE RECORDS SUMMARY | 2025-03-01 10:56 | XMS_ITS | Continuity of Care Document ---
Author Organization [facility] Address [address] [place] [address] Phone Care Team Providers Care Produce Laborer Name Role Phone Wally Ray MD Unavailable Unavailable Medications Medication Instructions Dosage Effective Dates (start - stop) Status Comments FOLIC ACID (unknown strength) Not Available - Active SAW PALMETTO (unknown strength) Not Available - Active OMEPRAZOLE (unknown strength) Not Available - Active VICODIN (unknown strength) Not Available - Active LIPOFEN (unknown strength) Not Available - Active LISINOPRIL (unknown strength) Not Available - Active NOVOLIN 70-30 (unknown strength) Not Available - Active Procedures Procedure Date OFFICE CONSULTATION POSTOP FOLLOW-UP VISIT OFFICE/OUTPATIENT VISIT [facility] Advance Directives Directive Yes / No Effective Date File Name No Information Encounters Encounter Description Practice Location Reason(s) For Visit Diagnoses Date Provider Providers Copied on Encounter OFFICE CONSULTATION [facility], [address], [place], [address], [place] tel:[phone] [facility] Darya Biceps tendon tear 4 Flor Lo. [address], [place], [place], [id number] . tel: [phone] Referring Provider: Master Melendez, [address], [place], [address] . tel:[phone] [facility], [address], [place], [address], tel:[phone] [facility] Onychia of finger 4 Mike Pickens. [address] [place], [place], [id number] . tel: [phone] OFFICE/OUTPATI ENT VISIT [facility], [address] [place], [address], tel:[phone] [facility] 4 Mike Pickens. [address] [place], [place], [id number] . tel: [phone] Family History Family Member Type Diagnosis Age [...]
--- OUTSIDE RECORDS SUMMARY | 2025-03-01 10:56 | XMS_ITS | Encounter Summary ---
Author Organization [facility] Address [address] [address] Care Team Providers Care Gizzard Peeler Name Role Phone Jarvis Harding Primary Care Provider [phone] Jarvis Harding Primary Care Provider [phone] Kindra Fernandez MD Primary Care Provider Eric Pretty MD Primary Care Provider Kale MONTANA MD, Master Hunt Unavailable [phone] Dominic Young MD Unavailable [phone] Carlos Hernandez MD Unavailable [phone] Encounter Details Date Type Department Care Team (Late st Contact Info) Description 12/17/2016 Orders Only [facility] ProviderChuck MD [address] [place] [address] Social History Tobacco Use Types Packs/Day Years Used Date Smoking Tobacco: Former Alcohol Use Standard Drinks/Week Comments Yes 0 (1 standard drink = 0.6 oz pur e alcohol) Sex and Gender Information Value Date Recorded Sex Assigned at Not on file 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 Gender Identity Not on file Sexual Orientation [...] on filedocumented in this encounter Care Teams Gizzard Peeler Relationship Specialty Start Date End Date Jarvis Harding [address] [place] [address] PCP - General 02/14/17 08/27/17 Jarvis Harding [address] [place] [address] PCP - General 07/13/14 02/13/17 Kindra Fernandez MD [address] [place] [address] PCP - General Family Practice 08/28/17 01/27/18 Eric Pretty MD [address] [place] [address] PCP - General Internal Medicine 01/28/18 Master Henley III, MD [address] [facility] [address] [place] [address] Consulting Physician Rheumatology 01/28/18 01/26/24 Dominic Young MD [address] [facility] [address] [place] [address] Consulting Physician Cardiology 01/04/20 Carlos Hernandez MD [address] [place] [address] Consulting Physician Rheumatology 01/27/24 documented as of this encounter
--- OUTSIDE RECORDS SUMMARY | 2025-03-01 10:56 | XMS_ITS | Clinical Summary ---
Author Organization [facility] [address] Address [address] [place] [address] Care Team Providers Care Frame Stripper Name Role Phone Eric Pretty MD Primary Care Provider [phone] Dominic Young MD Unavailable [phone] Carlos Hernandez MD Unavailable [phone] Allergies Active Allergy Reactions Criticality Noted [...] S4 Assessment & Plan (12/24/2024 12:49 PM BILINGUAL CUSTOMER SERVICE): BMD 06/09/24: LFN 0.761, tscore -1.2 Total [...] occurs. Assessment & Plan (09/23/2024 2:49 PM BILINGUAL CUSTOMER SERVICE): BMD 06/09/24: LFN 0.761, tscore -1.2 Total [...] candidate Assessment & Plan (09/23/2024 1:14 PM BILINGUAL CUSTOMER SERVICE): Xrays 2016: Moderate osteoarthritis of the acromioclavicular [...] walks. Assessment & Plan (12/12/2022 3:07 PM BILINGUAL CUSTOMER SERVICE): R shoulder hurting for the past 2-3 days. May have been triggered by carrying in grocery bags. Hx rotator cuff tears per pt's report. Recommend heat/ice, rest. Will order PT. Consider seeing ortho if not improving Atherosclerotic cardiovascular disease Assessment & Plan (11/12/2022 3:08 PM BILINGUAL CUSTOMER SERVICE): S/p multiple MIs/cardiac arrest, sick sinus, CHF. Has pacemaker. Rechecker Dr. Young. On eliquis and clopidogrel History of DVT of lower extremity 11/12/2022 History of prostate cancer 11/12/2022 Overview (11/12/2022): Treated with radiation in 2017 Chronic pain syndrome 12/16/2021 Type 2 diabetes mellitus wit h diabetic neuropathy, unspecified 11/17/2020 Chronic pain of right knee 06/08/2019 Assessment & Plan (09/23/2024 1:05 PM BILINGUAL CUSTOMER SERVICE): Mild OA on xray from 06/04. Had [...] benefit. Assessment & Plan (01/04/2020 12:03 PM BILINGUAL CUSTOMER SERVICE): Mild OA on xray from 06/04. Had cortisone shots years ago but they spiked his sugars. Had zilretta on 10/29/19 as this formulation causes less systemic steroid effect than regular triamcinolone injection. However, he reported no benefit. Assessment & Plan (10/26/2019 2:15 PM BILINGUAL CUSTOMER SERVICE): Mild OA on xray from 06/04. Had [...] mgmt: [facility] (Lola Cerna) in [facility] Assessment & Plan (12/24/2024 2:28 PM BILINGUAL CUSTOMER SERVICE): 3 prior back surgeries and still having a lot of pain. Decided against pursuing any more surgery. Has been to pain mgmt in [facility]. Continues to take gabapentin for neuropathic pain. Assessment & Plan (09/23/2024 1:05 PM BILINGUAL CUSTOMER SERVICE): 3 prior back surgeries and still having a lot of pain. Decided against pursuing any more surgery. Has been to pain mgmt in [facility]. Continues to take gabapentin for neuropathic pain. Assessment & Plan (06/22/2024 3:21 PM CDT): 3 prior back surgeries and still having a lot of pain. Decided against pursuing any more surgery. Has been to pain mgmt in [facility]. Continues to take gabapentin for neuropathic pain. Assessment & Plan (03/16/2024 4:37 PM CDT): 3 prior back surgeries and still having a lot of pain. Decided against pursuing any more surgery. Has been to pain mgmt in [facility]. Continues to take gabapentin for neuropathic pain. [...] surgery. Has been to pain mgmt in [facility]. Continues to take gabapentin for neuropathic pain Assessment & Plan (07/28/2023 3:39 PM CDT): 3 prior back surgeries and still having a lot of pain. Decided against pursuing any more surgery. Has been to pain mgmt in [facility]. Continues to take gabapentin for neuropathic pain Assessment & Plan (05/27/2023 4:30 PM CDT): 3 prior back surgeries and still having a lot of pain. Thinking about going back to see nsg for opinion if there is anything else he can do. Has been to pain mgmt in [facility]. Continues to take gabapentin for neuropathic pain Assessment & Plan (11/12/2022 3:05 PM BILINGUAL CUSTOMER SERVICE): 3 prior back surgeries and he does not want to have any additional surgery. Sees pain mgmt in [facility]. Discussed pain stimulator but he deferred for now. Continues to take gabapentin for neuropathic pain Assessment & Plan (01/04/2020 12:04 PM BILINGUAL CUSTOMER SERVICE): No surgery planned. Continue to f/u with pcp and pain mgmt. Encouraged to continue water exercise. Declines PT. Discuss weight loss treatments with pcp. He used to be on duloxetine for mood and chronic pain and can't remember why he stopped. He would be willing to restart this now. Begin 30mg daily. Assessment & Plan (10/26/2019 2:16 PM BILINGUAL CUSTOMER SERVICE): No surgery planned. Continue to f/u with [...] & Plan (08/21/2018 2:15 PM CDT): Saw amplifier mechanic who put him back on midodrine. Just started this today. Had episode of lightheadedness coming into the office today, better with sitting. Also describes vertigo sometimes and I suggested this might represent a different problem, discuss with pcp. High risk medications (not anticoagulants) long- term use 01/29/2018 Overview (08/10/2019): Neg quantiferon 12/18 Neg hepatitis 12/18 Assessment & Plan (12/24/2024 12:50 PM BILINGUAL CUSTOMER SERVICE): Neg quantiferon 12/18 Neg hepatitis 12/18 utd , [id number], yearly flu shot. Had shingrix Had RSV vaccine Had original COVID vaccine series but not additional boosters Assessment & Plan (09/23/2024 1:19 PM BILINGUAL CUSTOMER SERVICE): Neg quantiferon 12/18 Neg hepatitis 12/18 utd ihydwsm50, cewnlzvfs71, yearly flu shot. Had shingrix Had RSV vaccine Had original COVID vaccine series but not additional boosters Assessment & Plan (06/22/2024 1:27 PM CDT): Neg quantiferon 12/18 Neg hepatitis 12/18 utd wucqjif07, orhgkliwr93, yearly flu shot. Recommend shingrix, COVID booster Assessment & Plan (03/16/2024 2:20 PM CDT): Neg quantiferon 12/18 Neg hepatitis 12/18 utd etakajt55, zbblhkzel06, yearly flu shot. Recommend shingrix, COVID booster Assessment & Plan (01/27/2024 1:06 PM CDT): Neg quantiferon 12/18 Neg hepatitis 12/18 utd akmsdqe92, mmceayngl07, yearly flu shot. Recommend shingrix, COVID booster Assessment & Plan (10/28/2023 3:46 PM BILINGUAL CUSTOMER SERVICE): Neg quantiferon 12/18 Neg hepatitis 12/18 utd uzwyqlg51, , yearly flu shot. Recommend shingrix, COVID booster Assessment & Plan (07/28/2023 2:25 PM CDT): Neg quantiferon 12/18 Neg hepatitis 12/18 utd qzklypz27, sqjwfgcai69, yearly flu shot. Recommend shingrix, COVID booster Assessment & Plan (05/27/2023 1:55 PM CDT): Neg quantiferon 12/18 Neg hepatitis 12/18 utd rbrpfyb43, bnqwwasds54, flu shot. Recommend shingrix, COVID boosters if not done Assessment & Plan (04/17/2023 4:33 PM CDT): Neg quantiferon 12/18 Neg hepatitis 12/18 utd madsxba17, mnbidwbpa96, flu shot. Recommend shingrix, COVID boosters if not done Assessment & Plan (12/12/2022 3:06 PM BILINGUAL CUSTOMER SERVICE): Neg quantiferon 12/18 Neg hepatitis 12/18 utd supoxle91, ahetaxlhd71, flu shot. Recommend shingrix, COVID boosters if not done Will advise Evusheld if he goes back on Rituxan in the future Assessment & Plan (11/12/2022 3:05 PM BILINGUAL CUSTOMER SERVICE): Neg quantiferon 12/18 Neg hepatitis 12/18 utd tcoztvz62, , flu shot. Recommend shingrix, COVID boosters if not done Will advise Evusheld if he goes back on Rituxan in the future Assessment & Plan (01/04/2020 11:23 AM BILINGUAL CUSTOMER SERVICE): Neg quantiferon 12/18 Neg hepatitis 12/18 utd wtonswd15, uzgfkrstj28, flu shot. Recommend shingrix Assessment & Plan (10/26/2019 11:19 AM BILINGUAL CUSTOMER SERVICE): Neg quantiferon 12/18 Neg hepatitis 12/18 utd uvgkcrw90, dilvsrowh64, flu shot. Recommend shingrix Assessment & Plan (08/10/2019 11:37 AM CDT): Neg quantiferon /18 Neg hepatitis 18 Assessment & Plan (06/08/2019 12:09 PM CDT): Neg quantiferon 12/18 Neg hepatitis 12/18 Assessment & Plan (03/26/2019 8:13 AM CDT): Neg quantiferon /18 Neg hepatitis 1218 Assessment & Plan (12/24/2018 9:59 PM BILINGUAL CUSTOMER SERVICE): Neg quantiferon 11/03 Neg hepatitis 18 Syncope and collapse 08/28/2017 Orthostasis 08/28/2017 Coronary artery disease invo lving [place] coronary artery of [place] heart with angina pectoris 08/28/2017 Assessment & Plan (01/04/2020 12:04 PM BILINGUAL CUSTOMER SERVICE): Pt had abnormal stress test followed by cardiac cath, stenting. Symptoms currently improved. amplifier mechanic Dr. Young. Requested lipid panel so will [...] Overview (02/21/2017): Seasonal allergies Rheumatoid arthritis of [facility] with negative rheumatoid factor 05/06/2011 Overview (04/17/2023): Failed humira, remicade, orenica, and actemra 1st Rituxan series: 11/23/18, 12/08/18 2nd series 06/14/19, 07/01/19 Avoid DRISS due to hx DVT, CVD Assessment & Plan (12/24/2024 2:28 PM BILINGUAL CUSTOMER SERVICE): cdai = 33, high Was not seen [...] needed Assessment & Plan (09/23/2024 2:48 PM BILINGUAL CUSTOMER SERVICE): cdai = 17, moderate Was not seen [...] weeks Assessment & Plan (10/28/2023 3:45 PM BILINGUAL CUSTOMER SERVICE): cdai = 10, low, improving Was not [...] month Assessment & Plan (12/12/2022 3:05 PM BILINGUAL CUSTOMER SERVICE): cdai = 27, high Last seen in [...] month Assessment & Plan (11/12/2022 3:10 PM BILINGUAL CUSTOMER SERVICE): cdai = 32, high Last seen in [...] month Assessment & Plan (01/04/2020 11:21 AM BILINGUAL CUSTOMER SERVICE): cdai = 26, high Pt received first [...] months Assessment & Plan (10/26/2019 2:17 PM BILINGUAL CUSTOMER SERVICE): cdai = 30 Pt received first Rituxan [...] today. Assessment & Plan (12/24/2018 9:58 PM BILINGUAL CUSTOMER SERVICE): cdai = 13, low-moderate Pt received first [...] doing. Assessment & Plan (10/26/2018 9:41 AM BILINGUAL CUSTOMER SERVICE): High cdai. Patient has been having more [...] Department Care Team Description 12/24/2024 1:00 PM BILINGUAL CUSTOMER SERVICE Office Visit [facility] [address] [place] [phone] Olga Bueno PA Rheumatoid arthritis of [...] Medical chronic back pa in Diabetes mellitus (HCC) Diabetes mellitus; Comments: [facility] 01/24/2016 - Hypertension Hypertension Hyperlipidemia Hyperlipidemia; Comments: [facility] 01/24/2016 - Gastroesophageal reflux disease GERD Depression Depression Rheumatoid arthritis ([facility]) Rheum atoid arthritis; Comments: [facility] 01/24/2016 - Anxiety disorder Anxiety Diabetic neuropathy ([facility]) Diabet ic neuropathy; Comments: [facility] 01/24/2016 - Benign prostatic hyperplasia BPH - Benign prostatic hypertrophy; Comments: [facility] 01/24/2016 - History of spinal surgery H/O Sp inal surgery; Comments: [facility] 01/24/2016 - Cancer (HCC) Obesity Family History Medical History Relation Name [...] on file Legal Sex Male 3:50 PM BILINGUAL CUSTOMER SERVICE Gender Identity Not on file Sexual Orientation Not on file Occupation Industry Job Start Date Job End Date Retired Not on file Not on file Not on file Obstetrics History Last Filed Vital Signs Vital Sign Reading Time Taken Comments Blood Pressure 126/60 12/24/2024 12:46 PM BILINGUAL CUSTOMER SERVICE Pulse 115 12/24/2024 12:46 PM BILINGUAL CUSTOMER SERVICE Temperature 36.7 C (98 F) 04/15/2019 1:35 PM CDT Respiratory Rate 16 04/15/2019 3:39 PM CDT Oxygen Saturation 93% 12/24/2024 12: 46 PM BILINGUAL CUSTOMER SERVICE Inhaled Oxygen Concentration - - Weight 122.6 kg (270 lb 3.2 oz) 025 12:46 PM BILINGUAL CUSTOMER SERVICE Height 180.3 cm (5' 11 ) 12/24/2024 12: 46 PM BILINGUAL CUSTOMER SERVICE Body Mass Index 37.69 12/24/2024 12:46 PM BILINGUAL CUSTOMER SERVICE Plan of Treatment Health Maintenance Due Date [...] 12/11/2021, 12/19, 08/05/2014 Influenza Vaccine (#1) 2024 , 08/17/2020, 09/21/2019, Additional history exists eGFR 12/24/2025 12/24/2024, 11/0 05/2024, 06/22/2024, Additional history exists Pneumococcal vaccine [...] home safety. Medical Devices Implanted Type Area Water Resource Consultant Device Identifier Shelf Expiration Date Model / Serial / Lot Stents Heart Description:cardiac stents Hardware Spine Lumbar Description:lumbar hardware Procedures Procedure Name Priority Date/Time Associated Diagnosis Comments ERYTHROCYTE SEDIMENTATION RATE Routine 12/24/2024 1:20 PM BILINGUAL CUSTOMER SERVICE 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 factor (HCC) High risk medications (not anticoagulants) long-term use CRP (ACUTE PHASE) Routine 12/24/2024 1:2 0 PM BILINGUAL CUSTOMER SERVICE 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 factor (HCC) High risk medications (not anticoagulants) long-term use COMPREHENSIVE METABOLIC PANEL Routine 12/24/2024 1:20 PM BILINGUAL CUSTOMER SERVICE 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 factor (HCC) High risk medications (not anticoagulants) long-term use CBC WITH AUTO DIFFERENTIAL Routine 12/24/2024 1:20 PM BILINGUAL CUSTOMER SERVICE 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 factor (HCC) High risk medications (not anticoagulants) long-term use LIPID PANEL Routine 01/04/2020 11:48 AM BILINGUAL CUSTOMER SERVICE HEPATITIS PANEL, ACUTE Routine 8 11:17 AM BILINGUAL CUSTOMER SERVICE HEMOGLOBIN A1C Routine 08/05/2014 3:33 PM CDT from Last 3 Months or Most Recently Relevant to Health Maintenance Results * (ABNORMAL) CBC with auto differential (12/24/2024 1:20 PM BILINGUAL CUSTOMER SERVICE) [facility] WBC 5.4 3.8 - 10.8 [...] [facility] Blood 12/24/2024 1:20 PM BILINGUAL CUSTOMER SERVICE 12/24/2024 1:21 PM BILINGUAL CUSTOMER SERVICE Result [facility] [place] [place] LAB BLOOD ORDERABLES Fin al Result Performing Organization Address City/[facility]/ZIP Co de Phone Number [facility] [address] [place] [address] * (ABNORMAL) Erythrocyte sedimentation rate (12/24/2024 1:20 PM BILINGUAL CUSTOMER SERVICE) Erythrocyte sedimentation rate 22(H) < OR = 20 mm/h [facility] Blood 12/24/2024 1:20 PM BILINGUAL CUSTOMER SERVICE 12/24/2024 1:21 PM BILINGUAL CUSTOMER SERVICE Result [facility] [place] LAB BLOOD ORDERABLES Fin al Result Performing Organization Address [facility] Co de Phone Number [facility] [address] [place] [address] * CRP (acute phase) (12/24/2024 1:20 PM BILINGUAL CUSTOMER SERVICE) C-RP 6.5 <8.0 mg/L [facility] Blood 12/24/2024 1:20 PM BILINGUAL CUSTOMER SERVICE 12/24/2024 1:21 PM BILINGUAL CUSTOMER SERVICE Result [facility] Olga Bueno [place] LAB BLOOD ORDERABLES Fin al Result Performing Organization Address [facility] Co de Phone Number [facility] [address] [place] [address] * (ABNORMAL) Comprehensive metabolic panel (12/24/2024 1:20 PM BILINGUAL CUSTOMER SERVICE) Pathologist [facility] Glucose 96 65 - 99 mg/dL [facility] [...] [facility] Blood 12/24/2024 1:20 PM BILINGUAL CUSTOMER SERVICE 12/24/2024 1:21 PM BILINGUAL CUSTOMER SERVICE [address] LAB BLOOD ORDERABLES Fin al Result [facility] [address] [place] [address] * (ABNORMAL) Lipid panel (01/04/2020 11:48 AM BILINGUAL CUSTOMER SERVICE) Pathologist [facility] Cholesterol 155 <200 mg/dL [facility] HDL 50 > OR = 40 mg/dL [facility] Triglycerides 355(H) <150 mg/dL [facility] Comment: If a non-fasting specimen was collected, consider repeat triglyceride testing on a fasting specimen if clinically indicated. Darshan et al. J. of Clin. Lipidol. 2015;9:129-169. LDL 62 mg/dL (calc) [facility] Comment: Reference range: <100 Desirable range <100 mg/dL for primary prevention; <70 mg/dL for patients with CHD or diabetic patients with > or = 2 CHD risk factors. LDL-C is now calculated using the Ariane calculation, which is a validated novel method providing better accuracy than the Friedewald equation in the estimation of LDL-C. Girma SS et al. GINA. 2013;310(19): 0735-5346 (http://education.[employer]/faq/QLL384) Chol/HDL ratio 3.1 <5.0 (calc) [facility] Non-HDL, (LDL+VLDL) 105 <130 mg/dL (calc) [facility] Comment: For patients with diabetes plus 1 major ASCVD risk factor, treating to a non-HDL-C goal of <100 mg/dL (LDL-C of <70 mg/dL) is considered a therapeutic option. 01/04/2020 11:4 8 AM BILINGUAL CUSTOMER SERVICE 01/04/2020 11:49 AM BILINGUAL CUSTOMER SERVICE Narrative Resulting Agency Comment Performing Organization Information: Site ID: [place] Name: [facility] Address: [address] [place] [address] Director: Angie Vaca D.O., MPH us [address] LAB BLOOD ORDERABLES Fin al Result [facility] [place], [place] * Hepatitis panel, acute (11/03/2018 11:17 AM BILINGUAL CUSTOMER SERVICE) Pathologist [facility] Hep A IgM NON-REACTI VE NON-REACTI VE [facility] HepBsAg NON-REACTI VE NON-REACTI VE [facility] Hep B core IgM NON-REACTI VE NON-REACTI VE [facility] [place] Hep C Ab NON-REACTI VE NON-REACTI VE [facility] [place] SIGNAL TO CUT-OFF 0.02 <1.00 [facility] [place] 11/03/2018 11:1 7 AM BILINGUAL CUSTOMER SERVICE 11/03/2018 11:18 AM BILINGUAL CUSTOMER SERVICE Narrative Resulting Agency Comment Performing Organization Information: Site ID: [place] Name: [facility] Address: [address] [place] [address] Director: Angie Vaca D.O., MPH us Master Henley III, MD LAB MICROBIOLOGY - GENERAL ORDERABLES Final Result Performing Organization Address [facility] Co de Phone Number [facility] [place] * (ABNORMAL) Hemoglobin A1c (08/05/2014 3:33 [...] of diabetes for children. Test performed at [facility] [address] Director: ANGIE VACA DO,MPH 08/05/2014 3:[address] LAB BLOOD ORDERABLES Fin al Result Performing Organization Address City/[facility]/ZIP Co de Phone Number [facility] HISTORICAL RESULTS from Last 3 Months or Most Recently Relevant to Health Maintenance Insurance MEDICARE MEDICARE [facility] MEDICARE [facility] Care Teams Frame Stripper Relationship Specialty Start Date End Date Eric Pretty MD [address] [facility] [address] [facility] [address] [place] [address] PCP - General Internal Medicine 01/28/18 Dominic Young MD [address] [facility] [address] [place] [address] Consulting Physician Cardiology 01/04/20 Carlos Hernandez MD [address] [place] [address] Consulting Physician Rheumatology 01/27/24
--- OUTSIDE RECORDS SUMMARY | 2025-03-01 10:56 | XMS_ITS | Encounter Summary ---
Author Organization [facility] Address [address] [address] Care Team Providers Care Supplier Quality Manager Name Role Phone Jarvis Harding Primary Care Provider [phone] Jarvis Harding Primary Care Provider [phone] Kindra Fernandez MD Primary Care Provider Eric Pretty MD Primary Care Provider [phone] Kale MONTANA MD, Master Hunt Unavailable [phone] Dominic Young MD Unavailable [phone] Carlos Hernandez MD Unavailable [phone] Encounter Details Date Type Department Care Team (Late st Contact Info) Description 11/07/2016 Orders Only [facility] ProviderChuck MD [address] [place] [id number] Social History Tobacco Use Types Packs/Day Years Used Date Smoking Tobacco: Former Alcohol Use Standard Drinks/Week Comments Yes 0 (1 standard drink = 0.6 oz pur e alcohol) Sex and Gender Information Value Date Recorded Sex Assigned at Not on file 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 Gender Identity Not on file Sexual [...] on filedocumented in this encounter Care Teams Supplier Quality Manager Relationship Specialty Start Date End Date Jarvis Harding [address] [place] [address] PCP - General 02/14/17 08/27/17 Jarvis Harding [address] [place] [address] PCP - General 07/13/14 02/13/17 Kindra Fernandez MD [address] [place] [place] [address] PCP - General Family Practice 08/28/17 01/27/18 Eric Pretty MD [address] [facility] [address] [place] [address] PCP - General Internal Medicine 01/28/18 Master Henley III, MD [address] [facility] [address] [place] [address] Consulting Physician Rheumatology 01/28/18 01/26/24 Dominic Young MD [address] [facility] [address] [place] [id number] Consulting Physician Cardiology 01/04/20 Carlos Hernandez MD [address] [place] [address] Consulting Physician Rheumatology 01/27/24 documented as of this encounter
--- OUTSIDE RECORDS SUMMARY | 2025-03-01 10:56 | XMS_ITS | Encounter Summary ---
Author Organization [facility] Address [address] [place] [address] Care Team Providers Care Aluminum Hydroxide Process Operator Name Role Phone Eric Pretty MD Primary Care Provider [phone] Kale MONTANA MD, Master Hunt Unavailable Dominic Young MD Unavailable [phone] Carlos Hernandez MD Unavailable [phone] Encounter Details Date Type Department Care Team (Late st Contact Info) Description 04/14/2019 Telephone [facility] [address] [facility] [address] [place] [address] Kia Kwan MD [address] [facility] [address] [place] [address] Social History Tobacco Use Types [...] on file 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 documented as of this encounter Visit Diagnoses Not on filedocumented in this encounter Care Teams Aluminum Hydroxide Process Operator Relationship Specialty Start Date End Date Eric Pretty MD [address] [facility] [address] [place] [address] PCP - General Internal Medicine 01/28/18 Master Henley III, MD [address] [place] [address] Consulting Physician Rheumatology 01/28/18 01/26/24 Dominic Young MD [address] [email or web address] [address] [place] [address] Consulting Physician Cardiology 01/04/20 Carlos Hernandez MD [address] [place] [address] Consulting Physician Rheumatology 01/27/24 documented as of this encounter
--- OUTSIDE RECORDS SUMMARY | 2025-03-01 10:56 | XMS_ITS | Clinical Summary ---
Author Organization [employer] Administrative Offices Address [address] [place] [address] Care Team Providers Care Visitor Services Representative Name Role Phone Eric Pretty MD Primary Care Provider + Allergies [...] once daily 30 Tablet 3 Active sacubitriL-vals jaron (ENTRESTO) 24-26 mg Tablet Take 1 Tablet [...] from the original. Dr. Dominic Young - Groundwater Monitoring Technician () Problem Noted Date Diagnosed Date Chronic [...] Neg quantiferon 11/03 Neg hepatitis 11/03 utd , [id number], flu shot. Recommend shingrix Hyperlipidemia associated with type 2 diabetes m ellitus 08/28/2017 Orthostatic hypotension 08/28/2017 Overview (05/30/2021): Last Assessment & Plan: Saw crown pouncer who put him back on midodrine. Just started this today. Had episode of lightheadedness coming into the office today, better with sitting. Also describes vertigo sometimes and I suggested this might represent a different problem, discuss with pcp. 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 Symptoms currently improved. crown pouncer Dr. Young. Requested lipid panel so will [...] (12/12/2021): Added automatically from request for surgery [id number] Generalized muscle weakness 01/22/2021 05/30/2021 Severe obesity (BMI 35.0-39. 9) with comorbidity 01/22/2021 05/30/2021 Lumbar radiculopathy 05/06/2011 021 C. difficile diarrhea 2020 Asystole 01/11/2022 Dysphagia 01/11/2022 Acute cystitis without hematuria 01/11/2022 Cardiac arrest 01/11/2022 Acute bacterial conjunctivitis of both eyes 01/11/2022 Encounters Date Type Department Care Team Description 01/31/2025 11:40 AM CDT - 01/31/2025 12:21 PM CDT Surgery [facility] Aeronautics Teacher [address] [place] [address] Dominic Young MD Left heart cath 01/31/2025 9:01 AM CDT - 01/31/2025 4:40 PM CDT Hospital Encounter [facility] Interventional Care [address] [place] [address] Dominic Young MD Ejection fraction < 50% Discharge Disposition: Home or Self Care 01/28/2025 9:45 AM CDT Procedure visit [facility] EP AT [address] [place] [address] Tachy-michael syndrome (CMS/HCC) (Primary Dx); Pacemaker 01/28/2025 Results Follow-Up [facility] Heart [facility] At [address] [place] [address] Olga Stanley, RN CBC WITH DIFFERENTIAL, BASIC METABOLIC PANEL, PROTIME-INR 01/26/2025 Prep for Surgery [facility] Heart [facility] V[facility] At [address] [place] [address] Dominic Young MD Ejection fraction < 50% (Primary Dx); Abnormal cardiovascular stress test 01/26/2025 Telephone [facility] Heart [facility] At [address] [place] [address] Dominic Young MD needs cath 01/25/2025 8:34 AM CDT - 01/25/2025 11:59 PM CDT Hospital Encounter [facility] Nuclear Medicine [address] [place] [address] Dominic Young MD Discharge Disposition: Home or Self Care 01/25/2025 8:33 AM CDT - 01/25/2025 11:59 PM CDT Hospital Encounter [facility] Nuclear Medicine [address] [place] [address] Dominic Young MD Discharge Disposition: Home or Self Care 01/25/2025 Results Follow-Up [facility] Heart [facility] V[facility] At [address] [place] [address] Olga Stanley RN NM MYOCARD PERF IMAG SPECT MULT 01/24/2025 External Device Data STL ABSTRACTION Provider, Abstract 01/22/2025 External Device Data STL ABSTRACTION Provider, Abstract 01/21/2025 External Device Data STL ABSTRACTION Provider, Abstract 01/20/2025 4:00 PM INFORMATION SYSTEMS AUDITOR Telephone Check Up [facility] Heart [facility] At [address] [place] [address] Dominic Young MD Chronic HFrEF (heart failure with reduced ejection fraction) (CMS/HCC) (Primary Dx); Coronary artery disease involving [place]wa coronary artery of sag[place] chip[place]wa heart without angina pectoris; Atrial fibrillation, unspecified type (CMS/HCC); Cardiomyopathy, unspecified type (CMS/HCC); Cardiac pacemaker in situ; Mixed hyperlipidemia; Benign hypertension; SOLIS (dyspnea on exertion) 12/23/2024 Telephone [facility] - [facility] [address] [place] [address] Tani Patel MD Nerve Conduction Study from Last 3 Months Immunizations Immunization Administration [...] on file Legal Sex Male 6:01 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 Gender Identity Not on file Sexual Orientation [...] [facility] AT [address] [place] [address] Tani Patel MD [address] [place] [address] [address] [place] [address] 05/06/2025 12:00 PM CDT Procedure visit [facility] EP AT [address] [place] [phone] Health Maintenance Due Date Last Done Comments DIABETES ANNUAL FOOT EXAM 1963 DIABETES MICROALBUMIN ANNUAL SCREEN 1963 DTAP/TDAP/TD VACCINES (1 - Tdap) 1964 ZOSTER VACCINE (1 of 2) 1995 [...] years Discontinued Medical Devices Implanted Type Area Operations General Agent Device Identifier Shelf Expiration Date Model / Serial / Lot Sealant Duraseal 5ml - [id number] Implanted:Qty : 1 on 01/02/2021 by Jarvis Martell MD at [facility] Biological Spine Lumbar INTEGRA LIFESCIENCE HOLD LULA 02/14/2022 / / [id number] Eit T/Plif, H 13mm, 4' , 26/9 Implanted:Qty : 1 on 01/02/2021 by Jarvis Martell MD at [facility] Cage Spine Lumbar J&J- DEPUY SPINE INC 08/16/2024 [id number] / / [id number] Description:All Depuy spinal hardware was processed on requisition, 092312. Hemostatic Surgiflo 8ml W/Thrombin 2994 - [id number] Implanted:Qty : 1 on 01/02/2021 by Jarvis Martell MD at [facility] Hemostatic Spine Lumbar J&J- ETHICON INC 11/16/2021 2994 / / [id number] Hemostat Gaby Surg Mph Pwd 3gm [id number] - [id number] Implanted:Qty : 1 on 12/14/2021 by Aki Mccray MD at [facility] Hemostatic Left: Chest CR BARD- DAVOL INC 05/14/2026 [id number] / / [id number] Lead Pcmkr Tendril St Optm 8tc-52 - [id number] Implanted:Qty : 1 on 12/14/2021 by Aki Mccray MD at [facility] Lead N/A: Heart TITUS [employer] 11/16/20248TC-52 / [id number] / Lead Pcmkr Tendril St Optm 2087tc-58 - [id number] Implanted:Qty : 1 on 12/14/2021 by Aki Mccray MD at [facility] Lead N/A: Heart TITUS [employer] 07/17/2024 2088TC/58 / [id number] / Pacemaker Assurity-2 Mri [id number] - [id number] Implanted:Qty : 1 on 12/14/2021 by Aki Mccray MD at [facility] Pacemaker Left: Chest TITUS [employer] 05/16/2023 [id number] / [id number] / [id number] Description:Assurity MRI pacemaker and Tendril MRI and Tendril STS pacing leads allow full body, 1.5T and 3T MRI scans.* When the Assurity MRI pacemaker is combined with Tendril STS or Tendril MRI pacing leads there is no wait time between implant and MRI scan readiness.-cole 12/20/21 Rene Xpdm Crv W/Line 95mm [id number] - Ssterilized 12/20/2020 Implanted:Qty : 1 on 01/02/2021 by Jarvis Martell MD at [facility] Rene Spine Lumbar J&J- DEPUY SPINE INC 5 / STERILIZED 12/20/2020 / LOAD 110 Rene Xpdm Crv W/Line 85mm 71-085 - Ssterilized 12/20/2020 Implanted:Qty : 1 on 01/02/2021 by Jarvis Martell MD at [facility] Rene Spine Lumbar J&J- DEPUY SPINE INC 5 / STERILIZED 12/20/2020 / LOAD 110 Log [id number] - Depuy Expedium 5.5 Spine Tray - 1 - Screw Exp Poly 6x40mm Implanted:Qty : 2 on 05/06/2011 at [facility] Screw J&J- DEPUY SPINE INC 0 / / Setscrew Inner - Ssterilized 12/20/2020 Implanted:Qty : 6 on 01/02/2021 by Jarvis Martell MD at [facility] Screw Spine Lumbar J&J- DEPUY SPINE INC 0 / STERILIZED 12/20/2020 / LOAD 110 Screw Exp Poly 7x45mm - Ssterilized 12/20/2020 Implanted:Qty : 4 on 01/02/2021 by Jarvis Martell MD at [facility] Screw Spine Lumbar J&J- DEPUY SPINE INC 5 / STERILIZED 12/20/2020 / LOAD 110 Synergy-2019 Implanted: by Dominic Young MD (Quantity not on file) Stent 12/08/2020 / / [id number] Description:placed in the A Stent Synergy Xd 5.0x12mm Evrlms Elut [id number] - [id number] Implanted:Qty : 1 on 12/13/2021 at [facility] Stent N/A: Coronary BOSTON SCI LULA 12/18/2022 [id number] / / [id number] Putty Dbx Dbm [facility] 13278 - [id number] Implanted:Qty : 1 on 01/02/2021 by Jarvis Martell MD at [facility] Tissue Spine Lumbar MUSCULOSKELETAL TRANSPLANT FOU 09/04/2021 [id number] / [id number] / Healos Implanted:Qty : 1 on 05/06/2011 at [facility] 05/17/2011 [id number] / / [id number] Description:depuy spine [place] Cage Implanted:Qty : 1 on 05/06/2011 at [facility] 2 / / Description:conctico bullet c age, load#24 05-01-2011 Explanted Type Area Operations General Agent Device Identifier Shelf Expiration Date Model / Serial / Lot Log [id number] - Depuy Expedium 5.5 Spine Tray - 1 - Rene Xpdm 5.5 Ti Prebnt 45mm Implanted:Qty: 1 on 05/06/2011 at [facility] Explanted:Qty: 1 on 01/02/2021 by Jarvis Martell MD at [facility] Rene J&J- DEPUY SPINE INC / / Log [id number] - Depuy Expedium 5.5 Spine Tray - 1 - Screw Set Inner Implanted:Qty: 2 on 05/06/2011 at [facility] Explanted:Qty: 2 on 01/02/2021 by Jarvis Martell MD at [facility] Screw J&J- MED PROD -OLD / / Description:load#32 05-04-20 11 Procedures Procedure Name Priority Date/Time Associated Diagnosis Comments TELEMETRY REPORT 02/01/2025 12:59 PM CDT ECHO LIMITED W CONTRAST AND WO DOPPLER AND COLOR Pending Discharge 01/31/2025 3:37 PM CDT LEFT HEART CATH Routine 01/31/2025 11:50 AM CDT Ejection fraction < 50% Abnormal stress test NM REM INTERROG PM/LDLS PM/IDS <90 D TECH REVIEW Routine 01/28/2025 3:01 AM CDT Tachy-michael syndrome (CMS/HCC) Pacemaker NM REM INTERROG PM/LDLS PM <90 D PHYS/QHP [...] ejection fraction) (CMS/HCC) SOLIS (dyspnea on exertion) NM MYOCARD PERF IMAG SPECT MULT Routine 01/25/2025 11:51 AM CDT Coronary artery disease involving [place] coronary artery of sag[place]wa heart without angina pectoris SOLIS (dyspnea on exertion) HM EJECTION FRACTION Routine 01/25/2025 11:51 AM CDT NM PHARMACOLOGICAL STRESS TEST Routine 01/25/2025 10:45 AM CDT Coronary artery disease involving [place] coronary artery of sag[place] heart without angina pectoris SOLIS (dyspnea on exertion) LIPID PANEL Routine 05/21/2022 2:46 PM CDT Benign hypertension Mixed hyperlipidemia HEMOGLOBIN A1C Routine 12/11/2021 2:27 PM INFORMATION SYSTEMS AUDITOR POC OCCULT BLOOD 1 CARD Routine 01/21/2021 2:16 PM INFORMATION SYSTEMS AUDITOR from Last 3 Months or Most Recently Relevant to Health Maintenance Results * TELEMETRY REPORT (02/01/2025 12:59 PM CDT) us Provider Scanning ECG ORDERABLES Final Result * ECHO LIMITED W CONTRAST AND WO DOPPLER AND COLOR (01/31/2025 3:37 PM CDT) EJECTION FRACTION EF: INTERFACE SYSTEM 01/31/2025 1:59 PM CDT Narrative INTERFACE SYSTEM - 01/31/2025 3:49 PM CDT [address] [address] [email or web address] Transthoracic Echocardiogram (Report amended ) Patient: Kameron Man Study ID: ECHO LIMITED Pete Hernandez Gender: M : 1945 Age: 79 Race: CHANDA Height 180.3cm Study Date: 01/31/2025 Weight: 118.4kg Access. #: [id number] BP: *Referring Physician:* Dominic Young MD [facility] Dominic Young *Ordering Physician:* Cuauhtemoc Saez stained glass glazier: Nurse: STUDY CONCLUSIONS: SUMMARY: - Left ventricle: [...] Study time: 01:59 PM. Amended Eusebio Bashir [id number]:49:39 Procedure Note Eusebio Bashir MD - 01/31/2025 [place] [address] [email or web address] Transthoracic Echocardiogram (Report amended ) Patient: Kameron Man Study ID: ECHO ZEYAD W D Gender: M : 1945 Age: 79 Race: CAU Height 180.3cm Study Date: 01/31/2025 Weight: 118.4kg Access. #: [id number] BP: *Referring Physician:* Dominic Young MD [facility] DuqueOrdering Physician:* Cuauhtemoc Saez stained glass glazier: Nurse: STUDY CONCLUSIONS: SUMMARY: - Left ventricle: [...] Study time: 01:59 PM. Amended Eusebio Bashir [id number]:49:39 Cuauhtemoc Saez [facility] ORDERABLES Edited Result - Final INTERFACE SYSTEM Refer to clinic/hospital department * LEFT HEART CATH (01/31/2025 11:50 AM CDT) [facility]ASCULAR [facility] - 02/01/2025 7:32 AM CDT Diagnostic Dominance: [...] band care. 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 GDMT. Coronary Findings Diagnostic Dominance: Right Left [...] There was minimal blood loss during procedure. us Dominic Young MD CUP CATH ORDERABLES Final Result Performing Organization Address City/[facility]/ZIP Co de Phone Number [facility] CLIA# [id number] [address] [place] [address] * NM REM INTERROG PM/LDLS PM <90 D PHYS/QHP, NM REM INTERROG PM/LDLS PM/IDS <90 D TECH REVIEW (01/28/2025 3:01 AM CDT) 01/28/2025 3:01 AM CDT Narrative INTERFACE SYSTEM - 01/28/2025 10:48 AM CDT Remote Shoaib Transmission Appropriate dual chamber pacemaker function. Presenting Rhythm: AFL/Street Supervisor Battery: 5.1-6.1 years FINANCE CLERK 61% Since 10/29/2024 12,840 AMS episodes, burden 62%. Ongoing No ventricular arrhythmias noted. Per [email or web address], Patient takes metoprolol, amiodarone, plavix, eliquis Results sent via Pagido Procedure Note Provider, Historical - 01/28/2025 Remote Independence Transmission Appropriate dual chamber pacemaker function. Presenting Rhythm: AFL/Street Supervisor Battery: 5.1-6.1 years FINANCE CLERK 61% Since 10/29/2024 12,840 AMS episodes, burden 62%. Ongoing No ventricular arrhythmias noted. Per [email or web address], Patient takes metoprolol, amiodarone, plavix, eliquis Results sent via [employer] Tani Patel MD CARDIAC SERVICES ORDERABLES Ed [...] [facility] Comment: Test Performed at: [facility] [address] [place] [address] Humberto Byers MD Blood 01/27/2025 11:0 0 AM CDT 01/27/2025 11:01 AM CDT us Dominic Young MD HEMATOLOGY ORDERABLES Final Resu lt [facility] [phone] [facility] [address] [place] [phone] * (ABNORMAL) PROTIME-INR (01/27/2025 11:00 AM CDT) Pathologist [facility] INR 1.1 [facility] griselda Lopez Comment: Reference Range 0.9-1.1 Moderate-intensity Warfarin Therapy 2.0-3.0 Higher-intensity Warfarin Therapy 3.0-4.0 PROTIME 11.8(H) 9.0 - 11.5 sec [facility] John Comment: For additional information, please refer to http://education.AlphaBoost/faq/OCO561 (This link is being provided for informational/ educational purposes only.) Test Performed at: [place] [address] [address] [place] [address] Humberto Byers Blood 01/27/2025 11:0 0 AM CDT 01/27/2025 11:01 AM CDT Dominic Young MD HEMATOLOGY ORDERABLES Final Resu lt [facility] [phone] [place] [address] [address] [place] [address] * (ABNORMAL) BASIC METABOLIC PANEL (01/27/2025 11:00 AM CDT) [facility] GLUCOSE 162(H) 65 - 99 mg/dL [facility] Comment: Fasting reference interval For someone [...] [facility] Comment: [facility] Performed at: [facility] [address] [facility] [place] [address] Humberto Byers MD Blood 01/27/2025 11:0 0 AM CDT 01/27/2025 11:01 AM CDT us Dominic Young MD CHEMISTRY ORDERABLES Final Resul t [facility] [phone] [facility] [address] [facility] [place] [address] * NM MYOCARD PERF IMAG SPECT MULT [...] for comparison. Recommendations: Clinical correlation is recommended. Dominic ZHENG ORDERABLES Final Result INTERFACE SYSTEM Refer to clinic/hospital department * (ABNORMAL) HM EJECTION FRACTION (01/25/2025 11:51 AM CDT) [facility] Signature EJECTION FRACTION 26(A) 50 - 65 % Historical Provider HEALTH MAINTENANCE Final Res ult * NM PHARMACOLOGICAL STRESS TEST (01/25/2025 10:45 AM CDT) Narrative 01/25/2025 10:46 AM CDT Order information only. Exam was auto-finalized. Dominic Young MD NM ORDERABLES Final Result * (ABNORMAL) LIPID PANEL (05/21/2022 2:46 PM CDT) [facility] CHOLESTEROL 153 <200 mg/dL [facility] HDL 48 > OR = 40 mg/dL [facility] TRIGLYCERIDE 266(H) <150 mg/dL [facility] Comment: If a non-fasting specimen was collected, consider repeat triglyceride testing on a fasting specimen if clinically indicated. Darshan et al. J. of Clin. Lipidol. 2015;9:129-169. LDL CALCULATED 70 mg/dL (calc) [facility] villal[facility] John Comment: Reference range: <100 Desirable range <100 mg/dL for primary prevention; <70 mg/dL for patients with CHD or diabetic patients with > or = 2 CHD risk factors. LDL-C is now calculated using the Ariane calculation, which is a validated novel method providing better accuracy than the Friedewald equation in the estimation of LDL-C. Girma YING et al. GINA. 2013;310(19): 8833-7141 (http://education.Solidmation/faq/NGY246) CHOL/HDL RATIO 3.2 <5.0 (calc) [facility]al[facility] TOTAL NON-HDL CHOL(LDL+VLDL) 105 <130 mg/dL (calc) [facility] John Comment: For patients with diabetes plus 1 major ASCVD risk factor, treating to a non-HDL-C goal of <100 mg/dL (LDL-C of <70 mg/dL) is considered a therapeutic option. Test Performed at: [facility] [address] [address] [place] [address] [facility] Blood 05/21/2022 2:46 PM CDT 05/21/2022 2:46 PM CDT us Dominic Young MD CHEMISTRY ORDERABLES Final Resul t [facility] [phone] [facility] [place] [address] [address] [place] [place] [phone] * (ABNORMAL) HEMOGLOBIN A1C (12/11/2021 2:27 PM INFORMATION SYSTEMS AUDITOR) HEMOGLOBIN A1C 9.2(H) <5.7 % 12/11/2021 4:14 PM INFORMATION SYSTEMS AUDITOR [facility] EST. AVG GLUCOSE, A1C 217 mg/dL 12/11/2021 4:14 PM [facility] Blood Venipuncture / Unknown 12/11/2021 2:27 PM INFORMATION SYSTEMS AUDITOR 12/11/2021 2:42 PM INFORMATION SYSTEMS AUDITOR Narrative [facility] - 12/11/2021 4:14 PM INFORMATION SYSTEMS AUDITOR HGB A1C INTERPRETATION NORMAL: <5.7% PRE-DIABETES: 5.7 - 6.4% DIABETES: 6.5% OR GREATER Eusebio Bashir MD CHEMISTRY ORDERABLES Fi nal Result [facility] [employer] [facility] CLIA# [id number] [address] [place] [address] * POC OCCULT BLOOD 1 CARD (01/21/2021 2:16 PM INFORMATION SYSTEMS AUDITOR) [facility] OCCULT BLOOD 1 CARD POC Negative Negative 01/21/2021 2:16 [address] INFORMATION [address]S AUDITOR [facility] AGRICULTURAL SCIENCE PROFESSOR NAME POC JAZZMINE SHERMAN 01/21/2021 2:16 PM [facility] Stool STOOL SPECIMEN / Unknown 01/21/2021 2:16 PM INFORMATION SYSTEMS AUDITOR 01/22/2021 10:40 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 Master Villegas MD POINT OF CARE TESTING Final Re sult [facility] [employer] [facility] CLIA# [id number] [address] [place] [address] from Last 3 Months or Most Recently Relevant to [place] [address] MEDICARE PART A AND B BCBS SUPP RX [employer] Medicare Part D RX [employer] PLANS (INTERNAL) [facility] Internal Plans RX EMDEON Commercial Advance Directives For more information, please contact: [phone] Documents on File Type Date Recorded Patient Road Service Locksmith Expl anation Advance Directive POA 02/07/2021 9:09 [...] 1:05 PM 12/11/2021 3:25 PM Care Teams Visitor Services Representative Relationship Specialty Start Date End Date Eric Pretty MD [address] [place] [address] PCP - General Internal Medicine 11/24/19
--- OUTSIDE RECORDS SUMMARY | 2025-03-01 10:56 | XMS_ITS | Encounter Summary ---
Author Organization [facility] Medical Group Address [address] [place] [address] Care Team Providers Care Store Receiver Name Role Phone Jarvis Harding Primary Care Provider Jarvis Harding Primary Care Provider Jarvis Harding Primary Care Provider Jarvis Harding Primary Care Provider Jarvis Harding Primary Care Provider Jarvis Harding Primary Care Provider Kindra Fernandez MD Primary Care Provider Eric Pretty MD Primary Care Provider [phone] Kale MONTANA MD, John J. 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 Gender Identity Not on file Sexual Orientation [...] on filedocumented in this encounter Care Teams Store Receiver Relationship Specialty Start Date End Date Jarvis Harding [address] [place] [address] PCP - General 02/14/17 08/27/17 Jarvis Harding [address] [place] [address] PCP - General 07/13/14 02/13/17 Jarvis Harding [address] [place] [address] PCP - General 03/03/12 07/12/14 Jarvis Harding [address] [place] [address] PCP - General 02/18/12 03/02/12 Jarvis Harding [address] [place] [address] PCP - General 02/11/12 02/17/12 Jarvis Hadring [address] [place] [address] PCP - General 07/24/11 02/10/12 Kindra Fernandez MD [address] [place] [address] PCP - General Family Practice 08/28/17 01/27/18 Eric Pretty MD [address] [facility] [address] [facility] [address] [place] [address] PCP - General Internal Medicine 01/28/18 Master Henley III, MD [address] [facility] [address] [place] [address] Consulting Physician Rheumatology 01/28/18 01/26/24 Dominic Young MD [address] [facility] [address] [place] [address] Consulting Physician Cardiology 01/04/20 Carlos Hernandez MD [address] [place] [address] Consulting Physician Rheumatology 01/27/24 documented as of this encounter
[2025-03-01 11:26] LABS: Alanine Aminotransferase 20 U/L (6-50); Albumin Level 3.8 g/dL (3.5-5.1); Alkaline Phosphatase 73 U/L (38-126); Anion Gap 7 mmol/L (4-12); Aspartate Amino Transferase 33 U/L (17-59); Bilirubin,Total 0.9 mg/dL (0.2-1.3); Blood Urea Nitrogen 31 mg/dL (9-20); Calcium 8.6 mg/dL (8.4-10.2); Carbon Dioxide 29 mmol/L (22-30); Chloride 100 mmol/L (98-107); Cholesterol 139 mg/dL (0-200); Estimated Glomerular Filt Rate 55; Glucose 330 mg/dL (65-110); HDL Direct 72 mg/dL; Potassium 4.4 mmol/L (3.4-5.0); Sodium 136 mmol/L (137-145); Triglycerides 192 mg/dL (<150)
[2025-03-01 11:36] LABS: LDL Cholesterol Direct 38 mg/dL
[2025-03-01 11:40] LABS: Hemoglobin A1C 8.9 % (<5.7)
[2025-03-01 11:54] LABS: Free T4 Free Thyroxine 1.09 ng/dL (0.78-2.19)
== END 2025-03-01 10:05 | disposition home or self-care (01) ==
PROVIDERS: PCP Internal Medicine; Visit Provider Internal Medicine
DX: E78.2 Mixed hyperlipidemia (principal); I10 Essential (primary) hypertension; E11.42 Type 2 diabetes mellitus with diabetic polyneuropathy; Z13.29 Encounter for screening for other suspected endocrine disorder; Z79.4 Long term (current) use of insulin; Z79.899 Other long term (current) drug therapy
CPT/HCPCS: 36415; 80053; 80061; 83036; 84439; 84443

== ENCOUNTER 2025-04-14 12:47 | Outpatient (CLI) | payer MEDICARE, SELFPAY ==
--- NOTE | ~2025-04-14 | CT_ITS ---
Noncontrast CT scan of the lumbar spine CLINICAL HISTORY: Back pain TECHNIQUE: Axial noncontrast imaging of the lumbar spine was performed. Sagittal and coronal reformat meghan images were constructed. Dose reduction technique was used on this scan by utilizing automated ex posure control and iterative reconstruction technique. The dose-length product (DLP) was 1054.50 mGy- cm. COMPARISON: 03/25/2024 FINDINGS: Stable posterior and interbody fusion from L3 through L5. Stable posterior rods and transpe dicular screws. Osseous alignment is unchanged from prior exam. Stable prior posterior decompression at L3 and L4. At L1-L2, there is minimal disc bulge. No spinal canal stenosis or definite neural foraminal narrowin g. At L2-L3, there is disc bulge and facet arthropathy. Possible minimal central canal stenosis. There i s moderate to advanced bilateral neural foraminal narrowing. L3-L4 and L4-L5, there is no definite canal stenosis, with posterior decompression at these levels. T here is probable severe bilateral neural foraminal narrowing at these levels. At L5-S1, there is advanced degenerative disc change. There is disc protrusion centrally. No sabra ce ntral canal stenosis. There is severe bilateral neural foraminal narrowing. Paravertebral soft tissues are unremarkable. Impression: No acute abnormality. Stable postoperative changes from L3 through L5, as detailed above. Moderate to advanced degenerative spondylosis, with multilevel neural foraminal narrowing, as detaile d above. Reviewed, dictated and finalized at [facility]. Impression: No acute abnormality. Stable postoperative changes from L3 through L5, as detai led above. Moderate to advanced degenerative spondylosis, with multilevel neural foraminal narrowing, as detailed above.
== END 2025-04-14 12:48 | disposition home or self-care (01) ==
LOC: GOSHIMG 12:47
PROVIDERS: PCP Internal Medicine; Visit Provider Internal Medicine
DX: M47.817 Spondylosis without myelopathy or radiculopathy, lumbosacral region (principal); M48.061 Spinal stenosis, lumbar region without neurogenic claudication; M48.07 Spinal stenosis, lumbosacral region; Z98.1 Arthrodesis status
CPT/HCPCS: 72131

== ENCOUNTER 2025-05-03 11:25 | Outpatient (CLI) | payer MEDICARE, SELFPAY ==
--- OUTSIDE RECORDS SUMMARY | 2025-05-03 12:27 | XMS_ITS | Encounter Summary ---
Author Organization [facility] Address [address] [place] [address] Care Team Providers Care Shipper And Receiving Name Role Phone Eric Pretty MD Primary Care Provider + Reason for Visit * Reason Onset Date Comments Medication Question 05/02/2025 Encounter Details Date Type Department Care Team (Late st Contact Info) Description 05/02/2025 Telephone [facility] AT [facility] [address] [place] [address] Elver Bazzi NP [address] [address] [place] [address] Medication Question Social History Tobacco Use Types Packs/Day Years Used Date Smoking Tobacco: Every Day Pipe Smokeless Tobacco: Never Comments:Smokes a pipe 6-7x/ day Alcohol Use Standard Drinks/Week Comments No 0 (1 standard drink = 0.6 oz pur e alcohol) once a month a beer Feeling Safe Answer Date Recorded Are you in a relationship wi th someone who hurts you emotionally and/or physically? No 03/17/2025 Food Insecurity Answer Date Recorded Patient needs follow up regardin 03/09/2025 Transportation Needs Answer Date Record ed Patient needs follow up regardin 03/09/2025 Utility Needs Answer Date Recorded Patient needs follow up regardin 03/09/2025 Sex and Gender Information Value Date Recorded Sex Assigned at Not on file Legal Sex Male 6:01 AM [employer]GER [employer] Gender Identity Not on file Sexual Orientation Not on file documented as of this encounter Miscellaneous Notes * Telephone Encounter - Casie Dietz RN - 05/02/2025 10:31 AM CDT Images from the original note were not included. Spoke with Ms. Man and she will resume his fesoterodine 8 mg daily. Will call if he has any issueswith retaining fluid. Elver Bazzi, PLUG MAKER to Me (Selected Message) 05/02/25 8:41 AM Patient may resume. Thanks Me to [facility] [place] 05/02/25 8:22 AM Mr. Man had an office visit 03/09. Was found to be in AF RVR, pacemaker checked, was not related and sent to ED. Received AVN with BiV ICD upgrade. Festerodine 8 mg daily was discontinued at discharge and torsemide 10 mg daily started. Seen in office 04/15 by Akanksha Cueva and doing well at that time. Now having issues with urinary retention and asking if he could resume or try something different. Please advise. Thank you. Johanna Kameron Man to P [facility] Ep At Nurse (supporting Tani Patel MD) 05/01/25 3:13 PM Roge was taking Fesoterodine ER 8mg once a day before he had his surgery since he has trouble holding his urine and his DrEran was hoping this would help his bladder. You told us to discontinue it since you didn't want him to retain water, but he is really having trouble with his urine again. Couldhe continue it or a smaller dose or a different type. documented in this encounter Plan of Treatment Upcoming Encounters Date Type Department Care Team (Late st Contact Info) Description 05/24/2025 1:15 PM CDT Office Visit [facility] AT [place] [id number] [place] [address] Cuauhtemoc Saez DNP [address] [place] [address] [address] [place] [address] 07/20/2025 8:00 AM CDT Procedure visit [facility] AT [address] [place] [address] 08/08/2025 12:00 PM CDT Office Visit [facility] At [address] [place] [address] Dominic Young MD [address] [place] [address] [address] [place] [address] documented as of this encounter Visit Diagnoses Not on filedocumented in this encounter Care Teams Shipper And Receiving Relationship Specialty Start Date End Date Eric Pretty MD [address] [place] [id number] PCP - General Internal Medicine 11/24/19 documented as of this encounter
--- OUTSIDE RECORDS SUMMARY | 2025-05-03 12:27 | XMS_ITS | Clinical Summary ---
Author Organization [facility] [address] Address [address] [place] [address] Care Team Providers Care Sheet Tester Name Role Phone Eric Pretty MD Primary Care Provider [phone] Dominic Young MD Unavailable [phone] Carlos Hernandez MD Unavailable [phone] Allergies Active Allergy Reactions Criticality Noted [...] mg per tablet 0 12/09/19 19 Active clopidogrel (PLAVIX) 75 mg tablet Take [...] tablet Take 320 mg by mouth Active apixaban (ELIQUIS) 5 mg tablet Take 1 tablet (5 mg total) by mouth 2 (two) times a day Active predniSONE (DELTASONE) 5 mg tablet Take 1 tablet by mouth once daily 30 tablet 2 01/25/20 25 Active folic acid (FOLVITE) 1 mg tablet Take 1 tablet by mouth once daily 30 tablet 2 02/12/20 25 Active empagliflozin (JARDIANCE) 25 mg tabletIndicat ions:heart failure associated with type 2 diabetes mellitus Take 1 tablet (25 mg total) by mouth daily Active methotrexate 2.5 mg tabletIndicat ions:Rheumato id Arthritis TAKE 4 TABLETS BY MOUTH IN THE MORNING AND 4 IN THE EVENING ONCE EVERY 7 DAYS 96 tablet 04/27/20 25 Active methotrexate 2.5 mg tabletIndicat ions:Rheumato id Arthritis TAKE 4 TABLETS BY MOUTH IN THE MORNING AND 4 IN THE EVENING ONCE EVERY 7 DAYS 96 tablet 1 10/25/20 24 2024 Discontinued Active Problems Problem Noted Date Diagnosed Date Age-related osteoporosis wit reji current pathological fracture 06/22/2024 Overview (06/22/2024): BMD [...] transverse fracture of S4 Assessment & Plan (04/01/2025 4:14 PM CDT): BMD 06/09/24: LFN 0.761, tscore [...] BMD worsens/new fracture occurs. Assessment & Plan (12/24/2024 12:49 PM NUT SORTER): BMD 06/09/24: LFN 0.761, tscore -1.2 Total [...] occurs. Assessment & Plan (09/23/2024 2:49 PM NUT SORTER): BMD 06/09/24: LFN 0.761, tscore -1.2 Total [...] candidate Assessment & Plan (09/23/2024 1:14 PM NUT SORTER): Xrays 2016: Moderate osteoarthritis of the acromioclavicular [...] walks. Assessment & Plan (12/12/2022 3:07 PM NUT SORTER): R shoulder hurting for the past 2-3 days. May have been triggered by carrying in grocery bags. Hx rotator cuff tears per pt's report. Recommend heat/ice, rest. Will order PT. Consider seeing ortho if not improving Atherosclerotic cardiovascular disease 12/27/202 2 Assessment & Plan (11/12/2022 3:08 PM NUT SORTER): S/p multiple MIs/cardiac arrest, sick sinus, CHF. Has pacemaker. Facialist Dr. Young. On eliquis and clopidogrel History of DVT of lower extremity 11/12/2022 History of prostate cancer 11/12/2022 Overview (11/12/2022): Treated with radiation in 2017 Chronic pain syndrome 12/16/2021 Type 2 diabetes mellitus wit h diabetic neuropathy, unspecified 11/17/2020 Chronic pain of right knee 06/08/2019 Assessment & Plan (09/23/2024 1:05 PM NUT SORTER): Mild OA on xray from 06/04. Had [...] benefit. Assessment & Plan (01/04/2020 12:03 PM NUT SORTER): Mild OA on xray from 06/04. Had cortisone shots years ago but they spiked his sugars. Had zilretta on 10/29/19 as this formulation causes less systemic steroid effect than regular triamcinolone injection. However, he reported no benefit. Assessment & Plan (10/26/2019 2:15 PM NUT SORTER): Mild OA on xray from 06/04. Had [...] mgmt: [facility] ([facility] C[facility]) in [facility] Assessment & Plan (04/01/2025 4:13 PM CDT): 3 prior back surgeries and still having a lot of pain. Decided against pursuing any more surgery. Has been to pain mgmt in [facility]. Continues to take gabapentin for neuropathic pain. Assessment & Plan (12/24/2024 2:28 PM NUT SORTER): 3 prior back surgeries and still having a lot of pain. Decided against pursuing any more surgery. Has been to pain mgmt in [facility]. Continues to take gabapentin for neuropathic pain. Assessment & Plan (09/23/2024 1:05 PM NUT SORTER): 3 prior back surgeries and still having a lot of pain. Decided against pursuing any more surgery. Has been to pain mgmt in [facility]. Continues to take gabapentin for neuropathic pain. Assessment & Plan (06/22/2024 3:21 PM CDT): 3 prior back surgeries and still having a lot of pain. Decided against pursuing any more surgery. Has been to pain mgmt in [facility]. Continues to take gabapentin for neuropathic pain. Assessment & Plan (03/16/2024 4:37 PM CDT): 3 prior back surgeries and still having a lot of pain. Decided against pursuing any more surgery. Has been to pain mgmt in [facility]. Continues to take gabapentin for neuropathic [...] surgery. Has been to pain mgmt in [facility]. Continues to take gabapentin for neuropathic pain Assessment & Plan (07/28/2023 3:39 PM CDT): 3 prior back surgeries and still having a lot of pain. Decided against pursuing any more surgery. Has been to pain mgmt in [facility]. Continues to take gabapentin for neuropathic pain Assessment & Plan (05/27/2023 4:30 PM CDT): 3 prior back surgeries and still having a lot of pain. Thinking about going back to see nsg for opinion if there is anything else he can do. Has been to pain mgmt in [facility]. Continues to take gabapentin for neuropathic pain Assessment & Plan (11/12/2022 3:05 PM NUT SORTER): 3 prior back surgeries and he does not want to have any additional surgery. Sees pain mgmt in [facility]. Discussed pain stimulator but he deferred for now. Continues to take gabapentin for neuropathic pain Assessment & Plan (01/04/2020 12:04 PM NUT SORTER): No surgery planned. Continue to f/u with pcp and pain mgmt. Encouraged to continue water exercise. Declines PT. Discuss weight loss treatments with pcp. He used to be on duloxetine for mood and chronic pain and can't remember why he stopped. He would be willing to restart this now. Begin 30mg daily. Assessment & Plan (10/26/2019 2:16 PM NUT SORTER): No surgery planned. Continue to f/u with [...] & Plan (08/21/2018 2:15 PM CDT): Saw nut orchardist who put him back on midodrine. Just started this today. Had episode of lightheadedness coming into the office today, better with sitting. Also describes vertigo sometimes and I suggested this might represent a different problem, discuss with pcp. High risk medications (not anticoagulants) long- term use 01/29/2018 Overview (08/10/2019): Neg quantiferon 12/18 Neg hepatitis 12/18 Assessment & Plan (04/01/2025 4:13 PM CDT): Neg quantiferon 12/18 Neg hepatitis 12/18 utd [id number], [id number], yearly flu shot. Had shingrix Had RSV vaccine Had original COVID vaccine series but not additional boosters Assessment & Plan (12/24/2024 12:50 PM NUT SORTER): Neg quantiferon 12/18 Neg hepatitis 12/18 utd [id number], [id number], yearly flu shot. Had shingrix Had RSV vaccine Had original COVID vaccine series but not additional boosters Assessment & Plan (09/23/2024 1:19 PM NUT SORTER): Neg quantiferon 12/18 Neg hepatitis 12/18 utd [id number], [id number], yearly flu shot. Had shingrix Had RSV vaccine Had original COVID vaccine series but not additional boosters Assessment & Plan (06/22/2024 1:27 PM CDT): Neg quantiferon 12/18 Neg hepatitis 12/18 utd [id number], [id number], yearly flu shot. Recommend shingrix, COVID booster Assessment & Plan (03/16/2024 2:20 PM CDT): Neg quantiferon 12/18 Neg hepatitis 12/18 utd [id number], , yearly flu shot. Recommend shingrix, COVID booster Assessment & Plan (01/27/2024 1:06 PM CDT): Neg quantiferon 12/18 Neg hepatitis 12/18 utd , [id number], yearly flu shot. Recommend shingrix, COVID booster Assessment & Plan (10/28/2023 3:46 PM NUT SORTER): Neg quantiferon 12/18 Neg hepatitis 12/18 utd [id number], [id number], yearly flu shot. Recommend shingrix, COVID booster Assessment & Plan (07/28/2023 2:25 PM CDT): Neg quantiferon 12/18 Neg hepatitis 12/18 utd [id number], [id number], yearly flu shot. Recommend shingrix, COVID booster Assessment & Plan (05/27/2023 1:55 PM CDT): Neg quantiferon 12/18 Neg hepatitis 12/18 utd , [id number], flu shot. Recommend shingrix, COVID boosters if not done Assessment & Plan (04/17/2023 4:33 PM CDT): Neg quantiferon 12/18 Neg hepatitis 12/18 utd [id number], fjkwkickv67, flu shot. Recommend shingrix, COVID boosters if not done Assessment & Plan (12/12/2022 3:06 PM NUT SORTER): Neg quantiferon 12/18 Neg hepatitis 12/18 utd [id number], [id number], flu shot. Recommend shingrix, COVID boosters if not done Will advise Evusheld if he goes back on Rituxan in the future Assessment & Plan (11/12/2022 3:05 PM NUT SORTER): Neg quantiferon 12/18 Neg hepatitis 12/18 utd [id number], [id number], flu shot. Recommend shingrix, COVID boosters if not done Will advise Evusheld if he goes back on Rituxan in the future Assessment & Plan (01/04/2020 11:23 AM NUT SORTER): Neg quantiferon 12/18 Neg hepatitis 12/18 utd [id number], [id number], flu shot. Recommend shingrix Assessment & Plan (10/26/2019 11:19 AM NUT SORTER): Neg quantiferon 12/18 Neg hepatitis 12/18 utd [id number], qrfhascen94, flu shot. 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 Symptoms currently improved. nut orchardist Dr. Young. Requested lipid panel so will add to our labs and send results Sick sinus syndrome 08/28/2017 Hyperlipidemia LDL goal <70 08/28/2017 Hyperlipidemia associated with type 2 diabetes m janaitus 08/28/2017 Tired 01/29/2017 Overview (04/11/2017): Tiredness Assessment [...] Overview (02/21/2017): Seasonal allergies Rheumatoid arthritis of [facility] with negative rheumatoid factor 05/06/2011 Overview (04/17/2023): Failed humira, remicade, orenica, and actemra 1st Rituxan series: 11/23/18, 12/08/18 2nd series 06/14/19, 07/01/19 Avoid DRISS due to hx DVT, CVD Assessment & Plan (04/01/2025 4:13 PM CDT): cdai = 13, moderate Was not seen between 2019 and 11/07, off RA meds during that time, and also had multiple cardiac issues in the interim. Restarted 15mg mtx weekly and 5mg prednisone in 04/17/23. He felt significantly better. Now on 20mg mtx (split dosing) and remains on 5mg (felt worse when tapering to 4mg). His hand joints and CDAI improved. Last steroid taper in 01/11 was helpful. Pt took 2 series of Rituxan in 2018. Has also been on humira, remicade, orenica, and actemra in the past. Would avoid Melissa due to hx DVT and heart disease. Triamcinolone shots are helpful for him but cause spike in sugars. He is on insulin and has a continuous glucose monitor. Sees endocrinology. Consider restarting Rituxan if not controlled in the future. Recent labs reviewed so none needed today. F/u 3 months, sooner if needed Assessment & Plan (12/24/2024 2:28 PM NUT SORTER): cdai = 33, high Was not seen [...] needed Assessment & Plan (09/23/2024 2:48 PM NUT SORTER): cdai = 17, moderate Was not seen [...] weeks Assessment & Plan (10/28/2023 3:45 PM NUT SORTER): cdai = 10, low, improving Was not [...] is slightly impoved Was not seen between 11/07, off RA meds during that time, [...] month Assessment & Plan (12/12/2022 3:05 PM NUT SORTER): cdai = 27, high Last seen in [...] month Assessment & Plan (11/12/2022 3:10 PM NUT SORTER): cdai = 32, high Last seen in [...] month Assessment & Plan (01/04/2020 11:21 AM NUT SORTER): cdai = 26, high Pt received first [...] months Assessment & Plan (10/26/2019 2:17 PM NUT SORTER): cdai = 30 Pt received first Rituxan [...] today. Assessment & Plan (12/24/2018 9:58 PM NUT SORTER): cdai = 13, low-moderate Pt received first [...] doing. Assessment & Plan (10/26/2018 9:41 AM NUT SORTER): High cdai. Patient has been having more [...] Will cont to monitor. Lumbar radiculopathy 05/06/2011 Chronic systolic (congestive) heart failure 11/2000 Assessment & Plan (04/01/2025 4:15 PM CDT): S/p hospital admissions over the last few months for abnormal stress test/LHC, then atrial flutter, CHF exacerbation. Meds adjusted per cardiology and has new ICD. Encounters Date Type Department Care Team Description 04/08/2025 Telephone [facility] [address] [place] [phone] Natacha Henley 04/01/2025 1:15 PM CDT Office Visit [facility] [address] [place] [phone] Olga Bueno PA 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 factor (HCC) (Primary Dx); High risk medications (not anticoagulants) long-term use; Osteoarthritis of spine with radiculopathy, lumbar region; Age-related osteoporosis without current pathological fracture; Chronic systolic (congestive) heart failure (HCC) 04/01/2025 Telephone [facility] [address] [place] [phone] Olga Goodson Please schedule next Reclast. Thank you! from Last 3 Months Immunizations Immunization Administration [...] in Diabetes mellitus (HCC) Diabetes mellitus; Comments: JBP 01/24/2016 - Hypertension Hypertension Hyperlipidemia Hyperlipidemia; Comments: [facility] 01/24/2016 - Gastroesophageal reflux disease GERD Depression Depression Rheumatoid arthritis ([facility]) Rheum atoid arthritis; Comments: [facility] 01/24/2016 - Anxiety disorder Anxiety Diabetic neuropathy ([facility]) Diabet ic neuropathy; Comments: [facility] 01/24/2016 - Benign prostatic hyperplasia BPH - Benign prostatic hypertrophy; Comments: [facility] 01/24/2016 - History of spinal surgery H/O Sp inal surgery; Comments: [facility] 01/24/2016 - Cancer ([facility]) Obesity Family History Medical History Relation [...] on file Legal Sex Male 3:50 PM NUT SORTER Gender Identity Not on file Sexual Orientation Not on file Occupation Industry Job Start Date Job End Date Retired Not on file Not on file Not on file Obstetrics History Last Filed Vital Signs Vital Sign Reading Time Taken Comments Blood Pressure 104/60 04/01/2025 12:53 PM CDT Pulse 81 04/01/2025 12:53 PM CDT Temperature 36.7 C (98 F) 04/15/2019 1:35 PM CDT Respiratory Rate 16 04/15/2019 3:39 PM CDT Oxygen Saturation 94% 04/01/2025 12:53 PM CDT Inhaled Oxygen Concentration - - Weight 122.5 kg (270 lb) 04/01/2025 12:53 PM CDT Height 180.3 cm (5' 11) 04/01/2025 12:53 PM CDT Body Mass Index 37.66 04/01/2025 12:53 PM CDT Plan of Treatment Health Maintenance Due Date Last Done Comments Albumin Creatinine Ratio, Urine 1945 Depression Screening 1945 Dilated Eye Exam 1945 Foot Exam 1945 DTaP/Tdap/Td Vaccine (1 - Tdap) 1956 Hepatitis B Screening 1963 Zoster Vaccine (1 of 2) 1964 Abdominal Aortic Aneurysm (A AA) Screen 2010 Well Visit 65+ 2010 Fall Risk Assessment 04/15/2020 04/15/2019, 03/24/20 19 Lipid Panel 01/04/2021 01/04/2020, 05/18, 05/18/2019, Additional history exists Influenza Vaccine (Season Ended) 2025 08/30/2020, 08/17/2020, 09/21/2019, Additional history exists Hemoglobin A1C 09/08/2025 03/09/2025, 11/18, 01/09/2021, Additional history exists eGFR 12/24/2025 12/24/2024, 1105/2024, 06/22/2024, Additional history exists Pneumococcal vaccine 65+ Completed 01/20/2017, 07/19 Hepatitis C Screening Completed 11/03/2018 Goals Goal Patient Goal Type Associated Problems Recent Progress Patient-Stated? Author CCM Chronic Pain Care Plan Chronic Care Management No Tiera Eddy, RN Note: Problem: Chronic Pain Goals: 1. Minimize further functional decline 2. Maximize quality of life 3. Control pain Strategies: - Activity/exercise program recommendation - Conservative stepwise pain medicine strategy with multi-disciplinary approach - Recommend healthy lifestyle strategies and compensatory methods as needed Reduce the likelihood of falling Lifestyle No Tiera Eddy, RN Note: Below are four things you [...] home safety. Medical Devices Implanted Type Area Art Consultant Device Identifier Shelf Expiration Date Model / Serial / Lot Stents Heart Description:cardiac stents Hardware Spine Lumbar Description:lumbar hardware Procedures Procedure Name Priority Date/Time Associated Diagnosis Comments COMPREHENSIVE METABOLIC PANEL Routine 12/24/2024 1:20 PM NUT SORTER 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 factor (HCC) High risk medications (not anticoagulants) long-term use LIPID PANEL Routine 01/04/2020 11:48 AM NUT SORTER HEPATITIS PANEL, ACUTE Routine 8 11:17 AM NUT SORTER HEMOGLOBIN A1C Routine 08/05/2014 3:33 PM CDT from Last 3 Months or Most Recently Relevant to Health Maintenance Results * (ABNORMAL) Comprehensive metabolic panel (12/24/2024 1:20 PM NUT SORTER) Pathologist [facility] Glucose 96 65 - 99 mg/dL [facility] [...] [facility] Blood 12/24/2024 1:20 PM NUT SORTER 12/24/2024 1:21 PM NUT SORTER us [address] LAB BLOOD ORDERABLES Fin al Result [facility] [address] [place] [address] * (ABNORMAL) Lipid panel (01/04/2020 11:48 AM NUT SORTER) Cholesterol 155 <200 mg/dL [facility] [place] HDL 50 > OR = 40 mg/dL [facility] [place] Triglycerides 355(H) <150 mg/dL [facility] [place] Comment: If a non-fasting specimen was collected, consider repeat triglyceride testing on a fasting specimen if clinically indicated. Darshan et al. J. of Clin. Lipidol. 2015;9:129-169. LDL 62 mg/dL (calc) [facility] [place] Comment: Reference range: <100 Desirable range <100 mg/dL for primary prevention; <70 mg/dL for patients with CHD or diabetic patients with > or = 2 CHD risk factors. LDL-C is now calculated using the Girma-Rachel calculation, which is a validated novel method providing better accuracy than the Friedewald equation in the estimation of LDL-C. Girma SS et al. GINA. 2013;310(19): 1666-2810 (http://education.AppSheet/faq/DLF557) Chol/HDL ratio 3.1 <5.0 (calc) [facility] [place] Non-HDL, (LDL+VLDL) 105 <130 mg/dL (calc) [facility] [place] Comment: For patients with diabetes plus 1 major ASCVD risk factor, treating to a non-HDL-C goal of <100 mg/dL (LDL-C of <70 mg/dL) is considered a therapeutic option. 01/04/2020 11:4 8 AM NUT SORTER 01/04/2020 11:49 AM NUT SORTER Narrative Resulting Agency Comment Performing Organization Information: Site ID: [id number] Name: Mariann Pinedo Address: [address] [place], [place] [address] [address] Director: Dio Vaca D.O., MPH us [address] LAB BLOOD ORDERABLES Fin al Result Performing Organization Address [facility] Co de Phone Number [facility] [place] * Hepatitis panel, acute (11/03/2018 11:17 AM NUT SORTER) Hep A IgM NON-REACTI VE NON-REACTI VE [facility] [place] HepBsAg NON-REACTI VE NON-REACTI VE [facility] [place] Hep B core IgM NON-REACTI VE NON-REACTI VE [facility] [place] Hep C Ab NON-REACTI VE NON-REACTI VE [facility] [place] SIGNAL TO CUT-OFF 0.02 <1.00 [facility] [place] 11/03/2018 11:1 7 AM NUT SORTER 11/03/2018 11:18 AM NUT SORTER Narrative Resulting Agency Comment Performing Organization Information: Site ID: [id number] Name: Mariann Pinedo Address: [address] [place] [address] [place] [address] Director: Dio Vaca D.O., MPH us Master Henley III, MD LAB MICROBIOLOGY - GENERAL ORDERABLES Final Result Performing Organization Address [facility] Co de Phone Number [facility] [place] from Last 3 Months or Most Recently Relevant to Health Maintenance Insurance MEDICARE MEDICARE [facility] MEDICARE [facility] Care Teams Sheet Tester Relationship Specialty Start Date End Date Eric Pretty MD [address] [facility] [address] [place] [address] PCP - General Internal Medicine 01/28/18 Dominic Young MD [address] [facility] [address] [place] [address] Consulting Physician Cardiology 01/04/20 Carlos Hernandez MD [address] [place] [address] Consulting Physician Rheumatology 01/27/24
--- OUTSIDE RECORDS SUMMARY | 2025-05-03 12:27 | XMS_ITS | Continuity of Care Document ---
Author Organization [facility] Address [address] [place] [address] Phone Care Team Providers Care Independent Film Maker Name Role Phone Chance Monroy Unavailable Unavailable Procedures Procedure Date Visual Field Examination(s) Office/outpatient Visit, Est Corneal Pachymetry Fundus Photography W/ Report Eye Exam, New Patient Advance Directives Directive Yes / No Effective Date File Name No Information Encounters Encounter Description Practice Location Reason(s) For Visit Diagnoses Date Provider Providers Copied on Encounter [facility], [address] [place] [address] [address], [place], [place], [id number], tel:[phone] [facility] No Information [address], [place], [address], . tel:[phone] Referring Provider: Alondra Thomas [address], [place], [address]. tel:[phone] Office/outpat ient Visit, Est [facility], [address] [place] [address] [address], [place], [place], [id number], tel:[phone] [facility] No Information [address], [place], [address], [place]. tel:[phone] Referring Provider: Chance Wagner, [address], [place], [address]. tel:[phone] [facility], [address], [place], [place], [id number], [place] tel:[phone] [facility] No Information [address] , [address], [place], [address], [place]. tel:[phone] Family History Family Member Type Diagnosis Age [...]
--- OUTSIDE RECORDS SUMMARY | 2025-05-03 12:27 | XMS_ITS | Referral Summary ---
Author Organization [facility] [address] Address [address] [place] [address] Care Team Providers Care Builder'S Labourer Name Role Phone Eric Pretty MD Primary Care Provider [phone] Dominic Young MD Unavailable Carlos Hernandez MD Unavailable [phone] Encounters Date Type Department Care Team Description 04/08/2025 Telephone [facility] [address] [place] [phone] Natacha Henley 04/01/2025 Telephone [facility] [address] [place] [phone] Olga Goodson Please schedule next Reclast. Thank you! 04/01/2025 1:15 PM CDT Office Visit [facility] [address] [place] [phone] Olga Bueno PA 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 factor (HCC) (Primary Dx); High risk medications (not anticoagulants) long-term use; Osteoarthritis of spine with radiculopathy, lumbar region; Age-related osteoporosis without current pathological fracture; Chronic systolic (congestive) heart failure (HCC) from Last 3 Months Allergies Active Allergy [...] occurs. Assessment & Plan (12/24/2024 12:49 PM FRUIT AND VEGETABLE PACKER): BMD 06/09/24: LFN 0.761, tscore -1.2 Total [...] occurs. Assessment & Plan (09/23/2024 2:49 PM FRUIT AND VEGETABLE PACKER): BMD 06/09/24: LFN 0.761, tscore -1.2 Total [...] candidate Assessment & Plan (09/23/2024 1:14 PM FRUIT AND VEGETABLE PACKER): Xrays 2016: Moderate osteoarthritis of the acromioclavicular [...] walks. Assessment & Plan (12/12/2022 3:07 PM FRUIT AND VEGETABLE PACKER): R shoulder hurting for the past 2-3 days. May have been triggered by carrying in grocery bags. Hx rotator cuff tears per pt's report. Recommend heat/ice, rest. Will order PT. Consider seeing ortho if not improving Atherosclerotic cardiovascular disease Assessment & Plan (11/12/2022 3:08 PM FRUIT AND VEGETABLE PACKER): S/p multiple MIs/cardiac arrest, sick sinus, CHF. Has pacemaker. Front End Alignment Specialist Dr. Young. On eliquis and clopidogrel History of DVT of lower extremity 11/12/2022 History of prostate cancer 11/12/2022 Overview (11/12/2022): Treated with radiation in 2017 Chronic pain syndrome 12/16/2021 Type 2 diabetes mellitus wit h diabetic neuropathy, unspecified 11/17/2020 Chronic pain of right knee 06/08/2019 Assessment & Plan (09/23/2024 1:05 PM FRUIT AND VEGETABLE PACKER): Mild OA on xray from 06/04. Had [...] benefit. Assessment & Plan (01/04/2020 12:03 PM FRUIT AND VEGETABLE PACKER): Mild OA on xray from 06/04. Had cortisone shots years ago but they spiked his sugars. Had zilretta on 10/29/19 as this formulation causes less systemic steroid effect than regular triamcinolone injection. However, he reported no benefit. Assessment & Plan (10/26/2019 2:15 PM FRUIT AND VEGETABLE PACKER): Mild OA on xray from 06/04. Had [...] mgmt: [facility] ([facility] C[facility]) in [facility] Assessment & Plan (04/01/2025 4:13 PM CDT): 3 prior back surgeries and still having a lot of pain. Decided against pursuing any more surgery. Has been to pain mgmt in [facility]. Continues to take gabapentin for neuropathic pain. Assessment & Plan (12/24/2024 2:28 PM FRUIT AND VEGETABLE PACKER): 3 prior back surgeries and still having a lot of pain. Decided against pursuing any more surgery. Has been to pain mgmt in [facility]. Continues to take gabapentin for neuropathic pain. Assessment & Plan (09/23/2024 1:05 PM FRUIT AND VEGETABLE PACKER): 3 prior back surgeries and still having a lot of pain. Decided against pursuing any more surgery. Has been to pain mgmt in [facility]. Continues to take gabapentin for neuropathic pain. Assessment & Plan (06/22/2024 3:21 PM CDT): 3 prior back surgeries and still having a lot of pain. Decided against pursuing any more surgery. Has been to pain mgmt in [facility]. Continues to take gabapentin for neuropathic pain. Assessment & Plan (03/16/2024 4:37 PM CDT): 3 prior back surgeries and still having a lot of pain. Decided against pursuing any more surgery. Has been to pain mgmt in [facility]. Continues to take gabapentin for neuropathic [...] surgery. Has been to pain mgmt in [facility]. Continues to take gabapentin for neuropathic pain Assessment & Plan (07/28/2023 3:39 PM CDT): 3 prior back surgeries and still having a lot of pain. Decided against pursuing any more surgery. Has been to pain mgmt in [facility]. Continues to take gabapentin for neuropathic pain Assessment & Plan (05/27/2023 4:30 PM CDT): 3 prior back surgeries and still having a lot of pain. Thinking about going back to see nsg for opinion if there is anything else he can do. Has been to pain mgmt in [facility]. Continues to take gabapentin for neuropathic pain Assessment & Plan (11/12/2022 3:05 PM FRUIT AND VEGETABLE PACKER): 3 prior back surgeries and he does not want to have any additional surgery. Sees pain mgmt in [facility]. Discussed pain stimulator but he deferred for now. Continues to take gabapentin for neuropathic pain Assessment & Plan (01/04/2020 12:04 PM FRUIT AND VEGETABLE PACKER): No surgery planned. Continue to f/u with pcp and pain mgmt. Encouraged to continue water exercise. Declines PT. Discuss weight loss treatments with pcp. He used to be on duloxetine for mood and chronic pain and can't remember why he stopped. He would be willing to restart this now. Begin 30mg daily. Assessment & Plan (10/26/2019 2:16 PM FRUIT AND VEGETABLE PACKER): No surgery planned. Continue to f/u with [...] & Plan (08/21/2018 2:15 PM CDT): Saw melangeur operator who put him back on midodrine. Just [...] Neg quantiferon 12/18 Neg hepatitis 12/18 utd bekyyyp69, xwtpveiej85, yearly flu shot. Had shingrix Had RSV vaccine Had original COVID vaccine series but not additional boosters Assessment & Plan (12/24/2024 12:50 PM FRUIT AND VEGETABLE PACKER): Neg quantiferon 12/18 Neg hepatitis 12/18 utd swnxeed41, lrixppfqw52, yearly flu shot. Had shingrix Had RSV vaccine Had original COVID vaccine series but not additional boosters Assessment & Plan (09/23/2024 1:19 PM FRUIT AND VEGETABLE PACKER): Neg quantiferon 12/18 Neg hepatitis 12/18 utd hdaxbdv02, ymlnlzxbs62, yearly flu shot. Had shingrix Had RSV vaccine Had original COVID vaccine series but not additional boosters Assessment & Plan (06/22/2024 1:27 PM CDT): Neg quantiferon 12/18 Neg hepatitis 12/18 utd mdqhdky61, fueelbddu13, yearly flu shot. Recommend shingrix, COVID booster Assessment & Plan (03/16/2024 2:20 PM CDT): Neg quantiferon 12/18 Neg hepatitis 12/18 utd bbpwqru66, dnopwbguy53, yearly flu shot. Recommend shingrix, COVID booster Assessment & Plan (01/27/2024 1:06 PM CDT): Neg quantiferon 12/18 Neg hepatitis 12/18 utd oplteec81, zocphkjaj77, yearly flu shot. Recommend shingrix, COVID booster Assessment & Plan (10/28/2023 3:46 PM FRUIT AND VEGETABLE PACKER): Neg quantiferon 12/18 Neg hepatitis 12/18 utd , [id number], yearly flu shot. Recommend shingrix, COVID booster Assessment & Plan (07/28/2023 2:25 PM CDT): Neg quantiferon 12/18 Neg hepatitis 12/18 utd , pbizezeju88, yearly flu shot. Recommend shingrix, COVID booster Assessment & Plan (05/27/2023 1:55 PM CDT): Neg quantiferon 12/18 Neg hepatitis 12/18 utd ofjvtnb13, fhkrninzl77, flu shot. Recommend shingrix, COVID boosters if not done Assessment & Plan (04/17/2023 4:33 PM CDT): Neg quantiferon 12/18 Neg hepatitis 12/18 utd , ggydtwmwb54, flu shot. Recommend shingrix, COVID boosters if not done Assessment & Plan (12/12/2022 3:06 PM FRUIT AND VEGETABLE PACKER): Neg quantiferon 12/18 Neg hepatitis 12/18 utd , qdfyphihj81, flu shot. Recommend shingrix, COVID boosters if not done Will advise Evusheld if he goes back on Rituxan in the future Assessment & Plan (11/12/2022 3:05 PM FRUIT AND VEGETABLE PACKER): Neg quantiferon 11/03 Neg hepatitis 18 utd doaqwsa56, hirnurajd11, flu shot. Recommend shingrix, COVID boosters if not done Will advise Evusheld if he goes back on Rituxan in the future Assessment & Plan (01/04/2020 11:23 AM FRUIT AND VEGETABLE PACKER): Neg quantiferon 11/03 Neg hepatitis 11/03 utd zdbzeqx28, fcmsrexol36, flu shot. Recommend shingrix Assessment & Plan (10/26/2019 11:19 AM FRUIT AND VEGETABLE PACKER): Neg quantiferon 11/03 Neg hepatitis 18 utd apndecs96, doqofnlyw12, flu shot. Recommend shingrix Assessment & Plan (08/10/2019 11:37 AM CDT): Neg quantiferon 11/03 Neg hepatitis 11/03 Assessment & Plan (06/08/2019 12:09 PM CDT): Neg quantiferon 11/03 Neg hepatitis 11/03 Assessment & Plan (03/26/2019 8:13 AM CDT): Neg quantiferon 11/03 Neg hepatitis 11/03 Assessment & Plan (12/24/2018 9:59 PM FRUIT AND VEGETABLE PACKER): Neg quantiferon 11/03 Neg hepatitis 11/03 Syncope and collapse 08/28/2017 Orthostasis 08/28/2017 Coronary artery disease invo lving [place] coronary artery of [place] heart with angina pectoris 08/28/2017 Assessment & Plan (01/04/2020 12:04 PM FRUIT AND VEGETABLE PACKER): Pt had abnormal stress test followed by cardiac cath, stenting. Symptoms currently improved. melangeur operator Dr. Young. Requested lipid panel so will add to our labs and send results Sick sinus syndrome 08/28/2017 Hyperlipidemia LDL goal <70 08/28/2017 Hyperlipidemia associated with type 2 diabetes m jacob 08/28/2017 Tired 01/29/2017 Overview (04/11/2017): Tiredness Assessment [...] Overview (02/21/2017): Seasonal allergies Rheumatoid arthritis of [facility] sites with negative rheumatoid factor 05/06/2011 [...] needed Assessment & Plan (12/24/2024 2:28 PM FRUIT AND VEGETABLE PACKER): cdai = 33, high Was not seen [...] needed Assessment & Plan (09/23/2024 2:48 PM FRUIT AND VEGETABLE PACKER): cdai = 17, moderate Was not seen [...] weeks Assessment & Plan (10/28/2023 3:45 PM FRUIT AND VEGETABLE PACKER): cdai = 10, low, improving Was not [...] month Assessment & Plan (12/12/2022 3:05 PM FRUIT AND VEGETABLE PACKER): cdai = 27, high Last seen in [...] month Assessment & Plan (11/12/2022 3:10 PM FRUIT AND VEGETABLE PACKER): cdai = 32, high Last seen in [...] month Assessment & Plan (01/04/2020 11:21 AM FRUIT AND VEGETABLE PACKER): cdai = 26, high Pt received first [...] months Assessment & Plan (10/26/2019 2:17 PM FRUIT AND VEGETABLE PACKER): cdai = 30 Pt received first Rituxan [...] today. Assessment & Plan (12/24/2018 9:58 PM FRUIT AND VEGETABLE PACKER): cdai = 13, low-moderate Pt received first [...] doing. Assessment & Plan (10/26/2018 9:41 AM FRUIT AND VEGETABLE PACKER): High cdai. Patient has been having more [...] adjusted per cardiology and has new ICD. Immunizations Immunization Administration Dates Next Due Influenza, [...] on file Legal Sex Male 3:50 PM FRUIT AND VEGETABLE PACKER Gender Identity Not on file Sexual Orientation [...] 04/01/2025 12:53 PM CDT Plan of Treatment Not on file Goals [...] home safety. Medical Devices Implanted Type Area Social Problems Specialist Device Identifier Shelf Expiration Date Model / Serial / Lot Stents Heart Description:cardiac stents Hardware Spine Lumbar Description:lumbar hardware Procedures Procedure Name Priority Date/Time Associated Diagnosis Comments COMPREHENSIVE METABOLIC PANEL Routine 12/24/2024 1:20 PM FRUIT AND VEGETABLE PACKER 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 factor (HCC) High risk medications (not anticoagulants) long-term use LIPID PANEL Routine 01/04/2020 11:48 AM FRUIT AND VEGETABLE PACKER HEPATITIS PANEL, ACUTE Routine 8 11:17 AM FRUIT AND VEGETABLE PACKER HEMOGLOBIN A1C Routine 08/05/2014 3:33 PM CDT from Last 3 Months or Most Recently Relevant to Health Maintenance Results * (ABNORMAL) Comprehensive metabolic panel (12/24/2024 1:20 PM FRUIT AND VEGETABLE PACKER) [facility] Glucose 96 65 - 99 mg/dL [facility] [...] ALT (SGPT) 19 9 - 46 [facility] Blood 12/24/2024 1:20 PM FRUIT AND VEGETABLE PACKER 12/24/2024 1:21 PM FRUIT AND VEGETABLE PACKER us [address] LAB BLOOD ORDERABLES Fin al Result MAIRANN [place] [address] [id number] * (ABNORMAL) Lipid panel (01/04/2020 11:48 AM FRUIT AND VEGETABLE PACKER) Cholesterol 155 <200 mg/dL [facility] [place] HDL 50 > OR = 40 mg/dL [facility] [place] Triglycerides 355(H) <150 mg/dL [facility] [place] Comment: If a non-fasting specimen was collected, consider repeat triglyceride testing on a fasting specimen if clinically indicated. Darshan et al. J. of Clin. Lipidol. 2015;9:129-169. LDL 62 mg/dL (calc) [facility] [place] Comment: Reference range: <100 Desirable range <100 mg/dL for primary prevention; <70 mg/dL for patients with CHD or diabetic patients with > or = 2 CHD risk factors. LDL-C is now calculated using the Girma-Ramos calculation, which is a validated novel method providing better accuracy than the Friedewald equation in the estimation of LDL-C. Girma SS et al. GINA. 2013;310(19): 0811-9383 (http://education.[employer].Financuba/faq/RRM829) Chol/HDL ratio 3.1 <5.0 (calc) [facility] [place] Non-HDL, (LDL+VLDL) 105 <130 mg/dL (calc) [facility] [place] Comment: For patients with diabetes plus 1 major ASCVD risk factor, treating to a non-HDL-C goal of <100 mg/dL (LDL-C of <70 mg/dL) is considered a therapeutic option. 01/04/2020 11:4 8 AM FRUIT AND VEGETABLE PACKER 01/04/2020 11:49 AM FRUIT AND VEGETABLE PACKER Narrative Resulting Agency Comment Performing Organization Information: Site ID: [place] Name: Mariann Pinedo Address: [address] [id number] Director: Dio Vaca D.O., MPH us [address] LAB BLOOD ORDERABLES Fin al Result [facility] Shrestha * Hepatitis panel, acute (11/03/2018 11:17 AM FRUIT AND VEGETABLE PACKER) Hep A IgM NON-REACTI VE NON-REACTI VE [facility] [place] HepBsAg NON-REACTI VE NON-REACTI VE [facility] [place] Hep B core IgM NON-REACTI VE NON-REACTI VE [facility] [place] Hep C Ab NON-REACTI VE NON-REACTI VE [facility] [place] SIGNAL TO CUT-OFF 0.02 <1.00 [facility] [place] 11/03/2018 11:1 7 AM FRUIT AND VEGETABLE PACKER 11/03/2018 11:18 AM FRUIT AND VEGETABLE PACKER Narrative Resulting Agency Comment Performing Organization Information: Site ID: [place] Name: Mariann Pinedo Address: [address] [id number] Director: Dio Vaca D.O., MPH us Master Henley III, MD LAB MICROBIOLOGY - GENERAL ORDERABLES Final Result Performing Organization Address City/[facility]/ZIP Co de Phone Number [facility] Shrestha from Last 3 Months or Most Recently Relevant to [place] [address] MEDICARE MEDICARE [facility] MEDICARE [facility] Care Teams Builder'S Labourer Relationship Specialty Start Date End Date Eric Pretty MD [address] [facility] [address] [place] [address] PCP - General Internal Medicine 01/28/18 Dominic Young MD [address] [facility] [address] [place] [address] Consulting Physician Cardiology 01/04/20 Carlos Hernandez MD [address] [place] [address] Consulting Physician Rheumatology 01/27/24
--- OUTSIDE RECORDS SUMMARY | 2025-05-03 12:27 | XMS_ITS | Continuity of Care Document ---
Author Organization [facility] Address [address] [place] [address] Phone Care Team Providers Care Financial Data Analyst Name Role Phone Wally Ray MD Unavailable [...] OFFICE CONSULTATION POSTOP FOLLOW-UP VISIT OFFICE/OUTPATIENT VISIT [facility] Advance Directives Directive Yes / No Effective Date File Name No Information Encounters Encounter Description Practice Location Reason(s) For Visit Diagnoses Date Provider Providers Copied on Encounter OFFICE CONSULTATION [facility], [address], [place], [address], [place] tel:[phone] [facility] [place] Biceps tendon tear [address]. [address], [place], [place], [id number] . tel: [phone] Referring Provider: Master Melendez, [address], [place], [address] . tel:[phone] [facility], [address], [place], [address], tel:[phone] [facility] Onychia of finger [address]. [address] [place], [place], [id number] . tel: [phone] OFFICE/OUTPATI ENT VISIT [facility], [address] [place], [address], tel:[phone] [facility] [address]. [address] [place], [place], [id number] . tel: [phone] Family History Family Member Type Diagnosis Age At Onset No Information Payers Payer name Insurance type Covered constitution party ID Authoriza tion(s) No Information Social [...]
--- OUTSIDE RECORDS SUMMARY | 2025-05-03 12:27 | XMS_ITS | Encounter Summary ---
Author Organization [facility] Address [address] [place] [phone] Phone Care Team Providers Care Chair Inspector Name Role Phone Eric Pretty MD Primary Care Provider [phone] Dominic Young MD Unavailable [phone] Carlos Hernandez MD Unavailable [phone] Encounter Details Date Type Department Care Team (Late st Contact Info) Description 04/08/2025 Telephone [facility] [address] [place] [phone] Natacha Henley Social History Tobacco Use Types Packs/Day Years Used Date Smoking Tobacco: Every Day Pipe Last attempted to quit: 02/22/1989 Smokeless Tobacco: Former Comments:Quit cigarettes, sm oking pipe currently Alcohol Use Standard Drinks/Week Comments Yes 1 (1 standard drink = 0.6 oz pur e alcohol) Sex and Gender Information Value Date Recorded Sex Assigned at Not on file Legal Sex Male 3:50 PM CROSS CUT SAW OPERATOR Gender Identity Not on file Sexual Orientation Not on file Occupation Industry Job Start Date Job End Date Retired Not on file Not on file Not on file documented as of this encounter Miscellaneous Notes * Telephone Encounter - Natacha Henley - 04/08/2025 2:07 PM CDT Pt requesting to have office visit and reclast the same day. Is this possible? documented in this encounter Plan of Treatment Not on [...] on stairs Contact your local community or [facility] for information on exercise, fall prevention programs, or options for improving home safety. documented as of this encounter Visit Diagnoses Not on filedocumented in this encounter Care Teams Chair Inspector Relationship Specialty Start Date End Date Eric Pretty MD [address] [place] [address] PCP - General Internal Medicine 01/28/18 Dominic Young MD [address] [place] [address] Consulting Physician Cardiology 01/04/20 Carlos Hernandez MD [address] [place] [address] Consulting Physician Rheumatology 01/27/24 documented as of this encounter
--- OUTSIDE RECORDS SUMMARY | 2025-05-03 12:28 | XMS_ITS | Encounter Summary ---
Author Organization [facility] Address [address] [place] [address] Care Team Providers Care Properties Supervisor Name Role Phone Jarvis Harding Primary Care Provider Jarvis Harding Primary Care Provider Jarvis Harding Primary Care Provider Jarvis Harding Primary Care Provider Jarvis Harding Primary Care Provider Jarvis Harding Primary Care Provider Kindra Fernandez MD Primary Care Provider Eric Pretty MD Primary Care Provider [phone] Kale MONTANA MD, John J. Unavailable [phone] Dominic Young MD Unavailable [phone] Carlos Hernandez MD Unavailable [phone] Encounter Details Date Type Department Care Team (Late st Contact Info) Description 01/27/2010 Orders Only [facility] [place] [facility] Information Management [address] [place] [address] Scanning, Provider Social History Tobacco Use Types Packs/Day Years Used Date Smoking Tobacco: Never Assessed Sex and Gender Information Value Date Recorded Sex Assigned at Not on file Legal Sex Male 3:50 PM PERSONAL FINANCIAL ADVISOR Gender Identity Not on file Sexual Orientation [...] on filedocumented in this encounter Care Teams Properties Supervisor Relationship Specialty Start Date End Date Jarvis Harding [address] [place] [address] PCP - General 02/14/17 08/27/17 Jarvis Harding [address] [place] [address] PCP - General 07/13/14 02/13/17 Jarvis Harding [address] [place] [address] PCP - General 03/03/12 07/12/14 Jarvis Harding [address] [place] [address] PCP - General 02/18/12 03/02/12 Jarvis Harding [address] [place] [address] PCP - General 02/11/12 02/17/12 Jarvis Harding [address] [place] [address] PCP - General 07/24/11 02/10/12 Kindra Fernandez MD [address] [place] [address] PCP - General Family Practice 08/28/17 01/27/18 Eric Pretty MD [address] [place] [address] PCP - General Internal Medicine 01/28/18 Master Henley III, MD [address] [address] [place] [address] Consulting Physician Rheumatology 01/28/18 01/26/24 Dominic Young MD [address] [place] [address] Consulting Physician Cardiology 01/04/20 Carlos Hernandez MD [address] [facility] [address] Consulting Physician Rheumatology 01/27/24 documented as of this encounter
--- OUTSIDE RECORDS SUMMARY | 2025-05-03 12:28 | XMS_ITS | Encounter Summary ---
Author Organization [facility] Address [address] [address] Care Team Providers Care Sort Line Worker Name Role Phone Jarvis Harding Primary Care Provider [phone] Jarvis Harding Primary Care Provider [phone] Kindra Fernandez MD Primary Care Provider Eric Pretty MD Primary Care Provider [phone] Kale MONTANA MD, Master Hunt Unavailable [phone] Dominic Young MD Unavailable [phone] Carlos Hernandez MD Unavailable [phone] Encounter Details Date Type Department Care Team (Late st Contact Info) Description 11/07/2016 Orders Only [facility] ProviderChuck MD [address] [place] [id number] Social History Tobacco Use Types Packs/Day Years Used Date Smoking Tobacco: Former Alcohol Use Standard Drinks/Week Comments Yes 0 (1 standard drink = 0.6 oz pur e alcohol) Sex and Gender Information Value Date Recorded Sex Assigned at Not on file Legal Sex Male 3:50 PM DENTAL OFFICE COORDINATOR Gender Identity Not on file Sexual Orientation [...] on filedocumented in this encounter Care Teams Sort Line Worker Relationship Specialty Start Date End Date Jarvis Harding [address] [place] [address] PCP - General 02/14/17 08/27/17 Jarvis Harding [address] [place] [address] PCP - General 07/13/14 02/13/17 Kindra Fernandez MD [address] [place] [address] PCP - General Family Practice 08/28/17 01/27/18 Eric Pretty MD [address] [place] [address] PCP - General Internal Medicine 01/28/18 Master Henley III, MD [address] [place] [address] Consulting Physician Rheumatology 01/28/18 01/26/24 Dominic Young MD [address] [place] [address] Consulting Physician Cardiology 01/04/20 Carlos Hernandez MD [address] [place] [address] Consulting Physician Rheumatology 01/27/24 documented as of this encounter
--- OUTSIDE RECORDS SUMMARY | 2025-05-03 12:28 | XMS_ITS | Encounter Summary ---
Author Organization [facility] Address [address] [address] Care Team Providers Care Machine Repairman Name Role Phone Jarvis Harding Primary Care Provider [phone] Jarvis Harding Primary Care Provider [phone] Kindra Fernandez MD Primary Care Provider Eric Pretty MD Primary Care Provider [phone] Kale MONTANA MD, Master Hunt Unavailable [phone] Dominic Young MD Unavailable [phone] Carlos Hernandez MD Unavailable [phone] Encounter Details Date Type Department Care Team (Late st Contact Info) Description 12/17/2016 Orders Only [facility] ProviderChuck MD [address] [place] [id number] Social History Tobacco Use Types Packs/Day Years Used Date Smoking Tobacco: Former Alcohol Use Standard Drinks/Week Comments Yes 0 (1 standard drink = 0.6 oz pur e alcohol) Sex and Gender Information Value Date Recorded Sex Assigned at Not on file 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 Gender Identity Not on file Sexual Orientation [...] on filedocumented in this encounter Care Teams Machine Repairman Relationship Specialty Start Date End Date Jarvis Harding [address] [place] [address] PCP - General 02/14/17 08/27/17 Jarvis Harding [address] [place] [address] PCP - General 07/13/14 02/13/17 Kindra Fernandez MD [address] [place] [address] PCP - General Family Practice 08/28/17 01/27/18 Eric Pretty MD [address] [place] [address] PCP - General Internal Medicine 01/28/18 Master Henley III, MD [address] [place] [address] Consulting Physician Rheumatology 01/28/18 01/26/24 Dominic Young MD [address] [place] [id number] Consulting Physician Cardiology 01/04/20 Carlos Hernandez MD [address] [place] [address] Consulting Physician Rheumatology 01/27/24 documented as of this encounter
--- OUTSIDE RECORDS SUMMARY | 2025-05-03 12:28 | XMS_ITS | Encounter Summary ---
Author Organization [facility] Address [address] [place] [address] Phone Care Team Providers Care Curb Setter Helper Name Role Phone Eric Pretty MD Primary Care Provider [phone] Kale MONTANA MD, Master Hunt Unavailable [phone] Dominic Young MD Unavailable [phone] Carlos Hernandez MD Unavailable [phone] Reason for Referral * Diagnostic Imaging (Routine) - Closed Specialty Diagnoses / Procedures Referred By Contac t Referred To Contact Radiology Diagnoses Arthrodesis status Foraminal stenosis of lumbar region Lumbar radiculopathy Procedures CT Lumbar Spine WO Contrast Denise Walker CNS Phone: tel: fax: [facility] [address] Referral ID Status Reason Start Date Expiration Date Visits Re quested Visits Authorized [id number] Closed 03/08/2019 09/16/2020 1 1 * Consultation (Routine) - Closed Specialty Diagnoses / Procedures Referred By Contac t Referred To Contact Pain Management Diagnoses Arthrodesis status Foraminal stenosis of lumbar region Lumbar radiculopathy Denise Walker CNS Phone: tel: fax: Kia Kwan MD [address] [place] [address] Phone: tel: fax: Referral ID Status Reason Start Date Expiration Date V isits Requested Visits Authorized [id number] Closed Specialty Services Required 03/08/2019 09/16/2020 1 1 Scheduling Instructions Please schedule for left L4-L5 transforaminal injection.i Question Answer Please select the performing region: [facility] [[id number]] To provider: KIA KWAN [[id number]] # of visits: 1 Encounter Details Date Type Department Care Team (Late st Contact Info) Description 03/08/2019 Orders Only [facility] Orthopaedic Surgery [address] [facility] 1st Floor [address] [place] [id number] Denise Walker CNS [address] [facility] [address] [place] [address] Arthrodesis status (Primary Dx); Foraminal stenosis of [...] on file 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 Denise Walker [facility] IMG CT PROCEDURES Final Res ult documented in this encounter Visit Diagnoses Diagnosis Arthrodesis status- Primary Foraminal stenosis of lumbar region Lumbar radiculopathy Thoracic or lumbosacral neuritis or radiculitis, unspecified Arthrodesis status Foraminal stenosis of lumbar region Lumbar radiculopathy Thoracic or lumbosacral neuritis or radiculitis, unspecified documented in this encounter Care Teams Curb Setter Helper Relationship Specialty Start Date End Date Eric Pretty MD [address] [place] [address] PCP - General Internal Medicine 01/28/18 Master Henley III, MD [address] [place] [address] Consulting Physician Rheumatology 01/28/18 01/26/24 Dominic Young MD [address] [facility] [address] [place] [address] Consulting Physician Cardiology 01/04/20 Carlos Hernandez MD [address] [place] [address] Consulting Physician Rheumatology 01/27/24 documented as of this encounter
--- OUTSIDE RECORDS SUMMARY | 2025-05-03 12:28 | XMS_ITS | Clinical Summary ---
Author Organization [facility] Address [address] [place] [address] Care Team Providers Care Cream Maker Name Role Phone Eric Pretty MD Primary Care Provider [phone] Source Comments [facility],non-owned Affiliates and Associated Physician Practices is amultiple site organization consisting of ambulatory clinics and hospital sitesin [place], [place], [place] and [place]. This disclosure is being madepursuant to the Care Everywhere program and may not contain all information available regarding this patient. 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
--- OUTSIDE RECORDS SUMMARY | 2025-05-03 12:28 | XMS_ITS | Clinical Summary ---
Author Organization [facility] Address [address] [place] [address] Care Team Providers Care Managed Security Sales Consultant Name Role Phone Eric Pretty MD Primary [...] morning. Pt taking 25 mg daily Active cholecalcifer ol, vitamin D3, 1,000 unit Take 25 Units by mouth daily. Active apixaban (ELIQUIS) 5 mg tablet Take 5 mg by mouth 2 times daily. Active sertraline (ZOLOFT) 100 mg tablet Take 100 mg by mouth daily. Active methotrexate (RHEUMATREX) 2.5 mg Tablet Taking 6 tablets once a week 11/12/20 22 Active predniSONE 5 mg tablet Take 5 mg by mouth daily at bedtime. 04/10/20 23 Active folic acid (FOLVITE) 1 mg tablet Take 1,000 mcg by mouth daily. 05/27/20 23 Active nitroglycerin (NITROSTAT) 0.6 mg Tablet, Sublingual DISSOLVE ONE TABLET UNDER THE TONGUE EVERY 5 MINUTES NEEDED FOR CHEST PAIN. DO NOT EXCEED A TOTAL OF 3 DOSES IN 15 MINUTES 30 Tablet 2 11/27/19 24 Active clopidogreL (PLAVIX) 75 mg Tablet Take 1 tablet by mouth once daily 90 Tablet 2 08/23/20 24 Active sacubitriL-va lsartan (ENTRESTO) 24-26 mg Tablet Take 1 Tablet by mouth 2 times daily. 200 Tablet 3 01/21/20 25 Active HumuLIN-R U-500, Conc, Kwikpen 500 unit/mL (3 mL) pen INJECT 80 UNITS SUBCUTANEOUSLY BEFORE BREAKFAST, AND 35 UNITS BEFORE DINNER. 15 mL 1 03/12/20 25 Active ferrous sulfate 325 mg (65 mg iron) tablet Take 1 Tablet (325 mg) by mouth daily. 90 Tablet 03/20/20 25 Active metoprolol succinate (TOPROL XL) 25 mg Extended Release 24 hour tablet Take 0.5 Tablets (12.5 mg) by mouth daily. 45 Tablet 1 03/24/20 25 Active torsemide (DEMADEX) 5 mg tablet Take 1 Tablet (5 mg) by mouth 1 time daily as needed for Other (See Comment) (fluid retention). 30 Tablet 1 04/05/20 25 2024 Active torsemide (DEMADEX) 5 mg tablet Take 1 Tablet (5 mg) by mouth daily. 30 Tablet 1 03/24/20 25 2024 Discontinued Active Problems Patient Care Coordination No te Formatting of this note migh t be different from the original. Dr. Dominic Young - Moss Gatherer () Problem Noted Date Diagnosed Date Fall 03/17/2025 Generalized muscle weakness 03/17/2025 Hx of atrioventricular node ablation 03/17/2025 Status post biventricular pacemaker 03/17/2025 Permanent atrial fibrillation 03/10/2025 Paroxysmal atrial fibrillation with RVR 03/10/20 25 NICM (nonischemic cardiomyopathy) 03/09/2025 Atrial flutter with rapid ventricular response 0 03/09/2025 Chronic pain syndrome 12/16/2021 LV dysfunction 12/16/2021 [...] Neg quantiferon 11/03 Neg hepatitis 11/03 utd [id number], [id number], flu shot. 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 Just started this today. Had episode of lightheadedness coming into the office today, better with sitting. Also describes vertigo sometimes and I suggested this might represent a different problem, discuss with pcp. Tachy-michael syndrome 08/28/2017 Syncope and collapse 08/28/2017 Coronary artery disease invo lving [place] coronary artery of [place] heart with angina pectoris 08/28/2017 Overview (05/30/2021): Last Assessment & Plan: Pt had abnormal stress test followed by cardiac cath, stenting. Symptoms currently improved. irrigation system operator Dr. Young. Requested lipid panel so [...] (12/12/2021): Added automatically from request for surgery [id number] Generalized muscle weakness 01/22/2021 05/30/2021 Severe obesity (BMI 35.0-39. 9) with comorbidity 01/22/2021 05/30/2021 Lumbar radiculopathy 05/06/2011 021 C. difficile diarrhea 2020 Asystole 01/11/2022 Dysphagia 01/11/2022 Acute cystitis without hematuria 01/11/2022 Cardiac arrest 01/11/2022 Acute bacterial conjunctivitis of both eyes 01/11/2022 Encounters Date Type Department Care Team Description 05/02/2025 Telephone [facility] HEART AND VASCULAR EP AT [address] [place] [phone] Elver Bazzi, POLICE CAPTAIN Medication Question 04/18/2025 2:30 PM CDT Procedure visit [facility]ASC[facility] EP AT [address] [place] [phone] NICM (nonischemic cardiomyopathy) (CMS/HCC) (Primary Dx); Encounter for implantable defibrillator reprogramming or check 04/18/2025 Telephone [facility] HEART AND VASCULAR EP AT [address] [place] [phone] Tani Patel MD Pacemaker issues 04/15/2025 9:00 AM CDT Office Visit [facility] HEART AND VASCULAR EP AT [address] [place] [address] Akanksha Cueva NP NICM (nonischemic cardiomyopathy) (CMS/HCC) (Primary Dx); Biventricular ICD (implantable cardioverter-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; Longstanding persistent atrial fibrillation (CMS/HCC); Mixed hyperlipidemia 04/15/2025 8:30 AM CDT Procedure visit [facility] HEART AND VASCULAR EP AT [address] [place] [phone] NICM (nonischemic cardiomyopathy) (CMS/HCC) (Primary Dx); Biventricular ICD (implantable cardioverter-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; Longstanding persistent atrial fibrillation (CMS/HCC) 04/15/2025 Telephone [facility] HEART AND VASCULAR EP AT [address] [place] [phone] Tani Patel MD Symptoms 04/15/2025 Telephone [facility] Heart and Vascular At [address] [place] [phone] Akanksha Cueva NP Fatigue; Low Blood Pressure 04/05/2025 1:00 PM CDT Office Visit [facility] Heart and Vascular At [address] [place] [phone] Erica Vizcarra NP Coronary artery disease involving [place] coronary artery of [place] heart without angina pectoris (Primary Dx); Benign hypertension; Paroxysmal atrial fibrillation with RVR (CMS/HCC) 03/31/2025 Results Follow-Up [facility] Heart and Vascular At [address] [place] [phone] Yareli Hyde RN BASIC METABOLIC PANEL, CBC WITH DIFFERENTIAL, BASIC METABOLIC PANEL 03/24/2025 10:30 AM CDT Office Visit [facility] Heart and Vascular At [address] [place] [phone] Erica Vizcarra NP Chronic HFrEF (heart failure with reduced ejection fraction) (CMS/HCC) (Primary Dx); Coronary artery disease involving [place] coronary artery of [place] heart without angina pectoris; Mixed hyperlipidemia 03/17/2025 10:13 AM CDT - 03/19/2025 3:56 PM CDT Hospital Encounter [facility] Cardiac Progressive Care Unit [address] [place] [phone] Aravind Jones DO Burke, MD Barron Gregg Mafaza, MD Fall Discharge Disposition: Home Health Care Svc 03/17/2025 10:00 AM CDT Procedure visit [facility] Heart and Vascular At [address] [place] [address] Cardiac pacemaker in situ (Primary Dx) 03/17/2025 9:30 AM CDT Procedure visit [facility] HEART AND VASCULAR EP AT [address] [place] [address] Tachy-michael syndrome (CMS/HCC) (Primary Dx); Pacemaker 03/15/2025 External Device Data STL ABSTRACTION Provider, Abstract 03/15/2025 External Device Data STL ABSTRACTION Provider, Abstract 03/15/2025 External Device Data STL ABSTRACTION Provider, Abstract 03/11/2025 3:08 PM CDT Anesthesia Event [facility] Hoist Worker [address] [place] [phone] Damion Agrawal MD Thro, Andrew, AA-C 03/11/2025 2:35 PM CDT - 03/11/2025 4:46 PM CDT Surgery [facility] Hoist Worker [address] [place] [phone] Chivo Moreland MD Pacemaker upgrade to BiV ICD and AV node ablation 03/09/2025 4:14 PM CDT - 03/12/2025 4:39 PM CDT Hospital Encounter [facility] Cardiac Progressive Care Unit [address] [place] [phone] Margaret Crawford MD Ullery, Brian, MD Baig, Kamran A, MD Weitzel, Laura Deandre, MD Longtine, Hattie, MD Iqbal, MD Robe Gregg Qin, MD Atrial flutter (CMS/HCC) Discharge Disposition: Home or Self Care 03/09/2025 3:00 PM CDT Procedure visit [facility] HEART AND VASCULAR EP AT [place] [address] [facility] [address] [place] [address] Tachy-michael syndrome (CMS/HCC) (Primary Dx); Pacemaker 03/09/2025 3:00 PM CDT Office Visit [facility] HEART AND VASCULAR EP AT [address] [place] [address] Tani Patel MD Atrial flutter with rapid ventricular response (CMS/HCC) (Primary Dx); Cardiac pacemaker in situ; Tachy-michael syndrome (CMS/HCC); Nonischemic cardiomyopathy (CMS/HCC) 03/09/2025 Travel 01/31/2025 11:40 AM CDT - 01/31/2025 12:21 PM CDT Surgery [facility] Hoist Worker [facility] [place] [address] Dominic Young MD Left heart cath 01/31/2025 9:01 AM CDT - 01/31/2025 4:40 PM CDT Hospital Encounter [facility] Interventional Care [address] [place] [phone] Dominic Young MD Ejection fraction < 50% Discharge Disposition: Home or Self Care from Last 3 Months Immunizations Immunization Administration Dates Next Due (PREVNAR 13)(6 WKS UP) PNEUM OCOCCAL CONJUGATE (PCV13) 0.5 ML, IM 08/15/2015 INFLUENZA VACCINE QUADRIVALE NT ADJ 65 YR UP PF IM 08/17/2020 Influenza Seasonal Unspecifi ed Formulation IM 08/30/2020,09/11/2017,08/05/2014,08/10 Influenza Vaccine High Dose 65+ Yrs IM 9,09/08/2018,09/18/2017 Influenza Vaccine Tri Adjuva nted 65+ PF IM 09/08/2018 Influenza Vaccine Tri Split 4+ Im 09/11/2017,11/2014,08/05/2014 [...] on file 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 Gender Identity Not on file Sexual Orientation Not on file Last Filed Vital Signs Vital Sign Reading Time Taken Comments Blood Pressure 124/70 04/15/2025 8:25 AM CDT Pulse 69 04/15/2025 8:25 AM CDT Temperature 36.3 C (97.3 F) 03/19/2025 8:05 AM CDT Respiratory Rate 15 03/19/2025 12:52 PM CDT Oxygen Saturation 92% 04/15/2025 8:25 AM CDT Inhaled Oxygen Concentration - - Weight 122.9 kg (271 lb) 04/15/2025 8:25 AM CDT Height 180.3 cm (5' 11) 04/15/2025 8:25 AM CDT Body Mass Index 37.8 04/15/2025 8:25 AM CDT Plan of Treatment Upcoming Encounters Date Type Department Care Team (Late st Contact Info) Description 05/24/2025 1:15 PM CDT Office Visit [facility] HEART AND VASCULAR EP AT [address] [place] [address] Cuauhtemoc Saez DNP [facility] [address] [facility] [address] [place] [phone] 07/20/2025 8:00 AM CDT Procedure visit [facility] HEART AND VASCULAR EP AT [address] [place] [address] 08/08/2025 12:00 PM CDT Office Visit [facility] Heart and Vascular At [address] [place] [address] Dominic Young MD [address] [place] [address] [address] [place] [phone] Health Maintenance Due Date Last Done Comments [...] history exists DIABETES HBA1C Q 6 MONTHS 09/08/20252024, 09/14/2024, 06/14/2024, Additional history exists PNEUMOCOCCAL VACCINE 50+ YEARS Completed 01/20/2017 , 08/15/2015 FIT/FOBT Q 1 year Discontinued 01/21/2021 COLORECTAL SCREENING Discontinued 12/26/2022, 12/26/2022, 03/18/2018 Colorectal Cancer Screening Discontinued FIT-DNA Q 3 years Discontinued Flex Sig/CT Colonography Q 5 years Discontinued Medical Devices Implanted Type Area Director General Device Identifier Shelf Expiration Date Model / Serial / Lot Sealant Duraseal 5ml - [id number] Implanted:Qty: 1 on 01/02/2021 by Jarvis Martell MD at [facility] Biological Spine Lumbar [employer]ULA 02/14/2022 / / [id number] Eit T/Plif, H 13mm, 4' , 12/08 Implanted:Qty: 1 on 01/02/2021 by Jarvis Martell MD at [facility] Cage Spine Lumbar J&J- [employer]PU[employer] INC 08/16/2024 [id number] / / [id number] Description:All Depuy spinal hardware was processed on requisition, 400090. Hemostatic Surgiflo 8ml W/Thrombin 2994 - [id number] Implanted:Qty: 1 on 01/02/2021 by Jarvis Martell MD at [facility] Hemostatic Spine Lumbar J&J- ETHICON INC 11/16/2021 2994 / / [id number] Hemostat Gaby Surg Mph Pwd 3gm [id number] - [id number] Implanted:Qty: 1 on 12/14/2021 by Aki Mccray MD at [facility] Hemostatic Left: Chest CR BARD- DAVOL INC 05/14/2026 [id number] / / [id number] Hemostat Gaby Ah Powder 3gm [id number] - [id number] Implanted:Qty: 1 on 03/11/2025 by Chivo Moreland MD at [facility] Hemostatic Left: Chest BARD DAVOL [id number] 09/13/2029 [id number] / / [id number] Lead Pcmkr Tendril St Optm 2087tc-52 - [id number] Implanted:Qty: 1 on 12/14/2021 by Aki Mccray MD at [facility] Lead N/A: Heart [facility] [employer] 11/16/20242087TC-52 / [id number] / Lead Pcmkr Tendril St Optm 2087tc-58 - [id number] Implanted:Qty: 1 on 12/14/2021 by Aki Mccray MD at [facility] Lead N/A: Heart [facility] [employer] 07/17/2024 2088TC/58 / [id number] / Lead Quartet Lt Quad 86cm 1458q-86 - [id number] Implanted:Qty: 1 on 03/11/2025 by Chivo Moreland MD at [facility] Lead N/A: Heart [facility] [id number] 11/16/2027 1458Q/86 / [id number] / Pacemaker Assurity-2 Mri [id number] - [id number] Implanted:Qty: 1 on 12/14/2021 by Aki Mccray MD at [facility] Pacemaker Left: Chest [facility] [employer] 05/16/2023 [id number] / [id number] / [id number] Description:Assurity MRI pacemaker and Tendril MRI and Tendril STS pacing leads allow full body, 1.5T and 3T MRI scans.* When the Assurity MRI pacemaker is combined with Tendril STS or Tendril MRI pacing leads there is no wait time between implant and MRI scan readiness.-cole 12/20/21 Rene Xpdm Crv W/Line 95mm - Ssterilized 12/20/2020 Implanted:Qty: 1 on 01/02/2021 by Jarvis Martell MD at [facility] Rene Spine Lumbar J&J- DEPU[employer] 5 / STERILIZED 12/20/2020 / LOAD 110 Rene Xpdm Crv W/Line 85mm - Ssterilized 12/20/2020 Implanted:Qty: 1 on 01/02/2021 by Jarvis Martell MD at [facility] Rene Spine Lumbar J&J- [employer]PU[employer] INC 5 / STERILIZED 12/20/2020 / LOAD 110 Log [id number] - Depuy Expedium 5.5 Spine Tray - 1 - Screw Exp Poly 6x40mm [id number] Implanted:Qty: 2 on 05/06/2011 at [facility] Screw J&J- DEPUY [employer] INC 0 / / Setscrew Inner - Ssterilized 12/20/2020 Implanted:Qty: 6 on 01/02/2021 by Jarvis Martell MD at [facility] Screw Spine Lumbar J&J- [employer] 0 / STERILIZED 12/20/2020 / LOAD 110 Screw Exp Poly 7x45mm 5 - Ssterilized 12/20/2020 Implanted:Qty: 4 on 01/02/2021 by Jarvis Martell MD at [facility] Screw Spine Lumbar J&J- DEPU[employer] 5 / STERILIZED 12/20/2020 / LOAD 110 Synergy- 020 Implanted:11/17 by Dominic Young MD (Quantity not on file) Stent 12/08/2020 / / [id number] Description:placed in the A Stent Synergy Xd 5.0x12mm Evrlms Elut [id number] - [id number] Implanted:Qty: 1 on 12/13/2021 at [facility] Stent N/A: Coronary [employer] LULA 12/18/2022 [id number] / / [id number] Putty Dbx Dbm 5cc 12967 - [id number] Implanted:Qty: 1 on 01/02/2021 by Jarvis Martell MD at [facility] Tissue Spine Lumbar MUSCULOSKELETAL TRANSPLANT FOU 09/04/2021 [id number] / [id number] / Healos Implanted:Qty: 1 on 05/06/2011 at [facility] 05/17/2011 [id number] / / [id number] Description:depuy spine [place] Cage Implanted:Qty: 1 on 05/06/2011 at [facility] / Description:[place] bullet c age, load#24 05-01-2011 Durata 65 Cm Implanted:Qty: 1 on 03/11/2025 by Chivo Moreland MD at [facility] N/A: Heart 01/14/2027 [id number]-712 0 / [id number] / [place] Hf Defibrillator Implanted:Qty: 1 on 03/11/2025 by Chivo Moreland MD at [facility] Left: Chest 04/16/2026 [facility] [id number] / [id number] / Explanted Type Area Director General Device Identifier Shelf Expiration Date Model / Serial / Lot Log [id number] - Depuy Expedium 5.5 Spine Tray - 1 - Rene Xpdm 5.5 Ti Prebnt 45mm Implanted:Qty: 1 on 05/06/2011 at [facility] Explanted:Qty: 1 on 01/02/2021 by Jarvis Martell MD at [facility] Rene J&J- DEPUY SPINE INC [id number] / / Log [id number] - Depuy Expedium 5.5 Spine Tray - 1 - Screw Set Inner Implanted:Qty: 2 on 05/06/2011 at [facility] Explanted:Qty: 2 on 01/02/2021 by Jarvis Martell MD at [facility] Screw J&J- MED PROD -OLD / / Description:load#32 05-04-20 11 Procedures Procedure Name Priority Date/Time Associated Diagnosis Comments CT PROGRAM EVAL, IMPLANT DEVICE CARDVERT/DEFIB,MULT I-LEAD W/IN GLOBAL Routine 04/18/2025 3:01 PM CDT NICM (nonischemic cardiomyopathy) (CMS/HCC) Encounter for implantable defibrillator reprogramming or check CT PRGRMG EVAL IMPLANTABLE IN PERSON MULTI LEAD DFB Routine 04/15/2025 7:57 AM CDT NICM (nonischemic cardiomyopathy) (CMS/HCC) Biventricular ICD (implantable cardioverter-defibri llator) in place Longstanding persistent atrial fibrillation (CMS/HCC) BASIC METABOLIC PANEL Routine 04/12/2025 1:44 PM CDT Chronic HFrEF (heart failure with reduced ejection fraction) (CMS/HCC) BASIC METABOLIC PANEL Routine 03/30/2025 2:42 PM CDT Chronic HFrEF (heart failure with reduced ejection fraction) (CMS/HCC) CBC WITH DIFFERENTIAL Routine 03/30/2025 2:42 PM CDT Chronic HFrEF (heart failure with reduced ejection fraction) (CMS/HCC) TELEMETRY REPORT 03/22/2025 12:37 PM CDT TELEMETRY REPORT 03/22/2025 12:06 PM CDT POC GLUCOSE Routine 03/19/2025 12:57 PM CDT POC GLUCOSE Routine 03/19/2025 8:11 AM CDT BASIC METABOLIC PANEL Routine 03/19/2025 1:20 AM CDT CBC WITH DIFFERENTIAL Routine 03/19/2025 1:20 AM CDT POC GLUCOSE Routine 03/18/2025 8:54 PM CDT POC GLUCOSE Routine 03/18/2025 5:13 PM CDT POC GLUCOSE Routine 03/18/2025 11:51 AM CDT POC GLUCOSE Routine 03/18/2025 7:41 AM CDT BASIC METABOLIC PANEL Routine 03/18/2025 3:19 AM CDT CBC WITH DIFFERENTIAL Routine 03/18/2025 3:19 AM CDT POC GLUCOSE Routine 03/17/2025 9:41 PM CDT POC GLUCOSE Routine 03/17/2025 5:43 PM CDT URINALYSIS W/REFLEX MICROSCOPIC Stat 03/17/2025 4:30 PM CDT POC GLUCOSE Stat 03/17/2025 4:27 PM CDT TROPONIN 6 HR, 5TH GEN Timed Study 03/17/2025 4:23 PM CDT HEMOGLOBIN AND HEMATOCRIT Stat 03/17/2025 4:23 PM CDT VITAMIN B12 AND FOLATE Stat 03/17/2025 4:23 PM CDT POC GLUCOSE Stat 03/17/2025 1:43 PM CDT POC GLUCOSE Stat 03/17/2025 1:14 PM CDT IRON, TIBC, AND PERCENT SATURATION Stat 03/17/2025 1:10 PM CDT TROPONIN 2 HR, 5TH GEN Timed Study 03/17/2025 1:[address] HEAD CERVICAL SPINE WO CONTRAST Stat 03/17/2025 12:37 PM CDT ECHO LIMITED WO DOPPLER Stat 03/17/2025 12:10 PM CDT POC LACTIC ACID Stat 03/17/2025 10:56 AM CDT TYPE AND SCREEN Stat 03/17/2025 10:50 AM CDT BRAIN NATRIURETIC PEPTIDE, BNP OR PROBNP Stat 03/17/2025 10:50 AM CDT TROPONIN BASELINE, 5TH GEN Stat 03/17/2025 10:50 AM CDT COMPREHENSIVE METABOLIC PANEL Stat 03/17/2025 10:50 AM CDT CBC WITH DIFFERENTIAL Stat 03/17/2025 10:50 AM CDT XR CHEST PA OR AP 1 VW Stat 03/17/2025 10:38 AM CDT EKG 12-LEAD Stat 03/17/2025 10:[address] PRGRMG EVAL IMPLANTABLE IN PERSON MULTI LEAD DFB Routine 03/17/2025 8:50 AM CDT Tachy-michael syndrome (CMS/HCC) Pacemaker TELEMETRY REPORT 03/16/2025 4:03 PM CDT TELEMETRY REPORT 03/15/2025 10:37 PM CDT POC GLUCOSE Routine 03/12/2025 2:24 PM CDT PULSE OXIMETRY, WITH EXERCISE Pending Discharge 03/12/2025 12:14 PM CDT POC GLUCOSE Routine 03/12/2025 10:16 AM CDT POC GLUCOSE Routine 03/12/2025 2:24 AM CDT POC GLUCOSE Routine 03/11/2025 9:09 PM CDT XR CHEST PA OR AP 1 VW Stat 03/11/2025 7:12 PM CDT POC GLUCOSE Routine 03/11/2025 6:05 PM CDT PACEMAKER UPGRADE TO ICD Routine 03/11/2025 5:41 PM CDT NICM (nonischemic cardiomyopathy) (CMS/HCC) Atrial flutter with rapid ventricular response (CMS/HCC) POC GLUCOSE Routine 03/11/2025 12:20 PM CDT POC GLUCOSE Routine 03/11/2025 8:18 AM CDT TYPE AND SCREEN Routine 03/11/2025 4:16 AM CDT PROTIME-INR Routine 03/11/2025 4:16 AM CDT BASIC METABOLIC PANEL Routine 03/11/2025 4:16 AM CDT CBC WITH DIFFERENTIAL Routine 03/11/2025 4:16 AM CDT POC GLUCOSE Routine 03/11/2025 4:08 AM CDT POC GLUCOSE Routine 03/11/2025 12:02 AM CDT POC GLUCOSE Routine 03/10/2025 9:54 PM CDT POC GLUCOSE Routine 03/10/2025 5:08 PM CDT POC GLUCOSE Routine 03/10/2025 7:40 AM CDT BASIC METABOLIC PANEL Routine 03/10/2025 5:27 AM CDT CBC WITH DIFFERENTIAL Routine 03/10/2025 5:27 AM CDT TROPONIN 6 HR, 5TH GEN Timed Study 03/09/2025 11:08 PM CDT POC GLUCOSE Routine 03/09/2025 11:04 PM CDT TROPONIN 2 HR, 5TH GEN Timed Study 03/09/2025 10:21 PM CDT POC GLUCOSE Stat 03/09/2025 8:06 PM CDT XR CHEST PA OR AP 1 VW Stat 03/09/2025 5:00 PM CDT HEMOGLOBIN A1C Stat 03/09/2025 4:18 PM CDT MAGNESIUM LEVEL Stat 03/09/2025 4:18 PM CDT TROPONIN BASELINE, 5TH GEN Stat 03/09/2025 4:18 PM CDT COMPREHENSIVE METABOLIC PANEL Stat 03/09/2025 4:18 PM CDT CBC WITH DIFFERENTIAL Stat 03/09/2025 4:[address] ECG ROUTINE ECG W/LEAST 12 LDS W/I&R Routine 03/09/2025 3:54 PM CDT Atrial flutter with rapid ventricular response (CMS/HCC) EKG 12-LEAD Stat 03/09/2025 3:[address] PROGRAM EVAL IMPLANTABLE IN PERSN DUAL LD PACER Routine 03/09/2025 3:39 PM CDT Tachy-michael syndrome (CMS/HCC) Pacemaker CRITICAL CARE Routine 03/09/2025 3:33 PM CDT TELEMETRY REPORT 02/01/2025 12:59 PM CDT ECHO LIMITED W CONTRAST AND WO DOPPLER AND COLOR Pending Discharge 01/31/2025 3:37 PM CDT LEFT HEART CATH Routine 01/31/2025 11:50 AM CDT Ejection fraction < 50% Abnormal stress test LIPID PANEL Routine 05/21/2022 2:46 PM CDT Benign hypertension Mixed hyperlipidemia POC OCCULT BLOOD 1 CARD Routine 01/21/2021 2:16 PM 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 04/18/2025 3:01 PM CDT Narrative INTERFACE SYSTEM - 04/19/2025 8:09 AM CDT Sarath Alatorre, DONN 04/19/2025 8:11 AM ICD interrogation: GLOBAL < 91 days. Appropriate BiV device function. VVIR mode. 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 Per epic, pt takes metoprolol, Plavix, Eliquis. Scheduled for remote in 3 mos. LRL set to 80 bpm (70). us Tani Patel MD CARDIAC SERVICES ORDERABLES Ed ited Result - Final INTERFACE SYSTEM Refer to clinic/hospital department * (ABNORMAL) BASIC METABOLIC PANEL (04/12/2025 1:44 PM CDT) Only the most recent of6 resultswithin the time period is included. GLUCOSE 192(H) 65 - 99 mg/dL [facility] Comment: Fasting reference interval For someone without known diabetes, a glucose value >125 mg/dL indicates that they may have diabetes and this should be confirmed with a follow-up test. BUN 24 7 - 25 mg/dL [facility] CREATININE 1.13 0.70 - 1.28 mg/dL [facility] GFR 66 > OR = 60 mL/min/1.7 3m2 [facility] BUN/CREAT RATIO SEE NOTE: 6 - 22 (calc) [facility] Comment: Not Reported: BUN and Creatinine are within reference range. SODIUM 139 135 - 146 mmol/L [facility] POTASSIUM 4.3 3.5 - 5.3 mmol/L [facility] CHLORIDE 101 98 - 110 mmol/L [facility] CO2 28 20 - 32 mmol/L [facility] CALCIUM 9.0 8.6 - 10.3 mg/dL [facility] Comment: Test Performed at: [facility] [id number] [facility] [place] [address] Humberto Byers MD Blood 04/12/2025 1:44 PM CDT 04/12/2025 1:44 PM CDT us Erica Vizcarra NP CHEMISTRY ORDERABLES Final Res ult [facility] [phone] [facility] [address] [facility] [place] [address] * (ABNORMAL) CBC WITH DIFFERENTIAL (03/30/2025 2:42 PM CDT) Only the most recent of7 resultswithin the time period is included. WBC 6.0 3.8 - 10.8 Thousand/u L [facility] RBC 4.28 4.20 - 5.80 Million/uL [facility] HEMOGLOBIN 13.0(L) 13.2 - 17.1 g/dL [facility] HEMATOCRIT 40.4 38.5 - 50.0 % [facility] MCV 94.4 80.0 - 100.0 fL [facility] MCH 30.4 27.0 - 33.0 pg [facility] MCHC 32.2 32.0 - 36.0 g/dL [facility] Comment: For adults, a slight decrease in the calculated MCHC value (in the range of 30 to 32 g/dL) is most likely not clinically significant; however, it should be interpreted with caution in correlation with other red cell parameters and the patient's clinical condition. RDW 17.1(H) 11.0 - 15.0 % [facility] PLATELETS 231 140 - 400 Thousand/u L [facility] MPV 9.7 7.5 - 12.5 fL [facility] NEUTROPHIL ABSOLUTE 4,188 1,500 - 7,800 cells/uL [facility] LYMPHOCYTE ABSOLUTE 1,140 850 - 3,900 cells/uL [facility] MONOCYTE ABSOLUTE 522 200 - 950 cells/uL [facility] EOSINOPHIL ABSOLUTE 90 15 - 500 cells/uL [facility] BASOPHILS ABSOLUTE 60 0 - 200 cells/uL [facility] NEUTROPHIL 69.8 % [facility] LYMPHOCYTES 19.0 % [facility] MONOCYTE 8.7 % [facility] EOSINOPHILS 1.5 % [facility] BASOPHILS 1.0 % [facility] Comment: Test Performed at: [facility] [address] [place] [address] Humberto Byers MD Blood 03/30/2025 2:42 PM CDT 03/30/2025 2:45 PM CDT Erica Vizcarra NP HEMATOLOGY ORDERABLES Final Re sult [facility] [phone] [facility] [address] [place] [phone] * TELEMETRY REPORT (03/22/2025 12:37 PM CDT) Only the most recent of5 resultswithin the time period is included. Provider Scanning ECG ORDERABLES Final Result * (ABNORMAL) POC GLUCOSE (03/19/2025 12:57 PM CDT) Only the most recent of25 resultswithin the time period is included. GLUCOSE POC 146(H) 74 - 99 mg/dL 03/19/2025 12:57 PM CDT [facility] SPECIMEN SOURCE, GLUCOSE POC Whole Blood 03/19/2025 12:57 PM CDT [facility] COMMENT, GLU POC Notified RN/MD 03/19/2025 12:57 PM CDT [facility] Blood, whole 03/19/2025 12:5 7 PM CDT 03/19/2025 1:14 PM CDT Prem Iqbal MD POINT OF CARE TESTING Final Result Performing Organization Address [facility]/ZIP Co de Phone Number [facility] [employer] [facility] CLIA# [id number] [address] [address] [address] [address] [place] [address] * (ABNORMAL) URINALYSIS WITH REFLEX MICROSCOPIC (03/17/2025 4:30 PM CDT) COLOR UA Yellow Pale to Dark Yellow 03/17/2025 5:07 PM CDT [facility] CLARITY UA Clear Clear 03/17/2025 5:07 PM CDT [facility] SPECIFIC GRAVITY UA 1.020 1.003 - 1.035 03/17/2025 5:07 PM CDT [facility] - [facility] PH UA 6.0 5.0 - 8.0 03/17/2025 5:07 PM CDT [facility] - . [facility] LEUKOCYTE ESTERASE UA Negative Negative 03/17/2025 5:07 PM CDT [facility] - [facility] NITRITE UA Negative Negative 03/17/2025 5:07 PM CDT [facility] - . [facility] PROTEIN UA Negative Negative 03/17/2025 5:07 PM CDT [facility] - [facility] GLUCOSE UA 3+(A) Negative 03/17/2025 5:07 PM CDT [facility] - . [facility] KETONES UA Negative Negative 03/17/2025 5:07 PM CDT [facility] - . [facility] UROBILINOGEN UA Normal <2.0 mg/dL 5:07 PM CDT [facility] - [facility] BILIRUBIN UA Negative Negative 03/17/2025 5:07 PM CDT [facility] - [facility] BLOOD UA Negative Negative 03/17/2025 5:07 PM CDT [facility] - [facility] Urine URINE SPECIMEN OBTAINED BY CLEAN CATCH PROCEDURE / Unknown Collection / Unknown 03/17/2025 4:30 PM CDT 03/17/2025 4:53 PM CDT us Aravind Jones DO URINE ORDERABLES Final Result [facility] [employer] [facility]# [id number] [address] [place] [address] [place] [address] * (ABNORMAL) TROPONIN 6 HR, 5TH GEN (03/17/2025 4:23 PM CDT) Only the most recent of2 resultswithin the time period is included. TROPONIN T, 6 HR 5TH GEN 95(H) <=15 ng/L 03/17/2025 5:38 PM CDT [facility] - [facility] DELTA 6HR TROPONIN T 10 See Interp. 03/17/2025 5:38 PM CDT [facility] - [facility] Blood Venipuncture / Unknown 03/17/2025 4:23 PM CDT 03/17/2025 4:53 PM CDT Narrative [facility] - 03/17/2025 5:38 PM CDT Troponin elevated. Delta indeterminate. Aravind Jones DO CHEMISTRY ORDERABLES Final Resul t Performing Organization Address [facility]/ZIP Co de Phone Number [facility]# [id number] [address] [place] [address] * (ABNORMAL) HEMOGLOBIN AND HEMATOCRIT (03/17/2025 4:23 PM CDT) HEMOGLOBIN 11.7(L) 13.6 - 16.5 g/dL 03/17/2025 5:06 PM CDT [facility] HEMATOCRIT 36.0(L) 40.0 - 48.0 % 03/17/2025 5:06 PM CDT [facility] [employer] [facility] Blood Venipuncture / Unknown 03/17/2025 4:23 PM CDT 03/17/2025 4:53 PM CDT Nova Marks NP HEMATOLOGY ORDERABLES Final Result Performing Organization Address [facility] Co de Phone Number [facility]# [id number] [address] [place] [address] * VITAMIN B12 AND FOLATE (03/17/2025 4:23 PM CDT) VITAMIN B12 468 232 - 1,245 pg/mL 03/17/2025 5:53 PM CDT [facility] [employer] [facility] Comment:It has been reported that between 5 to 10% of patients with values between 200 and 400 pg/mL may experience neuropsychiatric and hematologic abnormalities due to occult B12 deficiency. Less than 1% of patients with values above 400 pg/mL will have symptoms. FOLATE, SERUM 19.7 >4.5 ng/mL 03/17/2025 5:53 PM CDT [facility] Blood Venipuncture / Unknown 03/17/2025 4:23 PM CDT 03/17/2025 4:53 PM CDT Nova Marks POLICE CAPTAIN CHEMISTRY ORDERABLES Final Result Performing Organization Address City/[facility]/ZIP Co de Phone Number [facility]# [id number] [address] [place] [address] * (ABNORMAL) TROPONIN 2 HR, 5TH GEN (03/17/2025 1:10 PM CDT) Only the most recent of2 resultswithin the time period is included. TROPONIN T, 2 HR 5TH GEN 83(H) <=15 ng/L 03/17/2025 1:51 PM CDT [facility] [employer] [facility] DELTA 2HR TROPONIN T -2 See Interp. 03/17/2025 1:51 PM CDT [facility] [employer] [facility] Blood Venipuncture / Unknown 03/17/2025 1:10 PM CDT 03/17/2025 1:10 PM CDT Narrative [facility] LAB[facility] - 03/17/2025 1:51 PM CDT Troponin elevated. Delta not changing. Delay in collection of timed specimen beyond recommended collection interval. Results must be interpreted in clinical context. Aravind Jones DO CHEMISTRY ORDERABLES Final Resul t [facility] [employer] [facility] CLIA# [id number] [address] [place] [address] * (ABNORMAL) IRON, TIBC, AND PERCENT SATURATION (03/17/2025 1:10 PM CDT) IRON 54(L) 59 - 158 ug/dL 03/17/2025 1:51 PM CDT [facility] [employer] [facility] TIBC 325 250 - 450 ug/dL 03/17/2025 1:51 PM CDT [facility] IRON % SATURATION 17(L) 20 - 50 % 03/17/2025 1:51 PM CDT [facility] TRANSFERRIN 256 200 - 360 mg/dL 03/17/2025 1:51 PM CDT [facility] LABORATORY [facility] - [facility] Blood Venipuncture / Unknown 03/17/2025 1:10 PM CDT 03/17/2025 1:10 PM CDT Nova Marks NP CHEMISTRY ORDERABLES Final Result [facility] CLIA# [id number] [address] [place] [address] * CT HEAD CERVICAL SPINE WO CONTRAST (03/17/2025 12:37 PM CDT) Anatomical Region Laterality Modality Head Computed Tomogra phy 03/17/2025 12:2 7 PM CDT Impressions 03/17/2025 12:55 PM CDT IMPRESSION: 1. No acute intracranial process. 2. No evidence of acute fracture in the cervical spine. DICTATION LOCATION: Location 1 - [facility] Narrative 03/17/2025 12:55 PM CDT EXAMINATION: CT HEAD CERVICAL SPINE WO CONTRAST HISTORY: fall. head injury. Gait instability; Hypotension, unspecified hypotension type TECHNIQUE: CT of the head and cervical spine were performed without contrast according to standard protocol. The examination was performed with the adjustment of mA according to the patient size and/or the use of Iterative Reconstruction Technique. FINDINGS: Comparison is made with a study from December 21, 2021. Head: No acute intra- or extra-axial fluid collections are identified. There is mild cerebral volume loss with associated ex vacuo ventricular dilatation. The basilar cisterns are patent. No mass effect or midline shift is seen. The haider-white matter differentiation is normal. Periventricular white matter hypoattenuation is indicative of chronic small vessel ischemic disease. There is vascular calcification of the carotid siphons. Other than bilateral cataract extractions and mild paranasal sinus disease, the visible portions of the orbits, paranasal sinuses, and mastoids appear normal. No acute fracture is identified. Cervical spine: The alignment is normal. Vertebral bodies are normal in height without evidence of acute fracture. Other than middle atlantoaxial joint osteoarthritis, the craniocervical junction appears normal. There is mild degenerative disc disease. No central canal stenosis is seen. There is mild facet osteoarthritis at multiple levels. There is mild uncovertebral joint osteoarthritis at multiple levels with the same degree of neural foraminal stenosis at these levels. There is atherosclerotic calcification of the carotid bifurcations. Procedure Note Kareem Fox MD - 03/17/2025 EXAMINATION: CT HEAD CERVICAL SPINE WO CONTRAST HISTORY: fall. head injury. Gait instability; Hypotension, unspecified hypotension type TECHNIQUE: CT of the head and cervical spine were performed without contrast according to standard protocol. The examination was performed with the adjustment of mA according to the patient size and/or the use of Iterative Reconstruction Technique. FINDINGS: Comparison is made with a study from December 21, 2021. Head: No acute intra- or extra-axial fluid collections are identified. There is mild cerebral volume loss with associated ex vacuo ventricular dilatation. The basilar cisterns are patent. No mass effect or midline shift is seen. The haider-white matter differentiation is normal. Periventricular white matter hypoattenuation is indicative of chronic small vessel ischemic disease. There is vascular calcification of the carotid siphons. Other than bilateral cataract extractions and mild paranasal sinus disease, the visible portions of the orbits, paranasal sinuses, and mastoids appear normal. No acute fracture is identified. Cervical spine: The alignment is normal. Vertebral bodies are normal in height without evidence of acute fracture. Other than middle atlantoaxial joint osteoarthritis, the craniocervical junction appears normal. There is mild degenerative disc disease. No central canal stenosis is seen. There is mild facet osteoarthritis at multiple levels. There is mild uncovertebral joint osteoarthritis at multiple levels with the same degree of neural foraminal stenosis at these levels. There is atherosclerotic calcification of the carotid bifurcations. IMPRESSION: 1. No acute intracranial process. 2. No evidence of acute fracture in the cervical spine. DICTATION LOCATION: Location 1 - [facility] us Aravind Jones DO CT ORDERABLES Final Result * ECHO LIMITED WO DOPPLER (03/17/2025 12:10 PM CDT) EJECTION FRACTION EF: INTERFACE SYSTEM 03/17/2025 11:5 6 AM CDT Narrative INTERFACE SYSTEM - 03/17/2025 1:55 PM CDT [address] [address] [employer] Transthoracic Echocardiogram (Report amended ) Patient: Kameron Man Study ID: ECHO LIMITED WO Gender: M : 1945 Age: 79 Race: CHANDA Height 180.3cm Study Date: 03/17/2025 Weight: 118.8kg Access. #: [id number] BP: *Referring Physician:* Adrienne Mullen *Ordering Physician:* Adrienne Mullen manager legal: Nurse: Indications: Evaluate for pericardial effusion. Limited study. STUDY CONCLUSIONS: SUMMARY: - Pericardium: There is no pericardial effusion. - Left ventricle: The cavity size was dilated. Wall thickness was increased. Global systolic function is severely reduced. The LVEF cannot be accurately assessed on this limited study. - Right ventricle: The cavity size is dilated. Systolic function is reduced. - Left atrium: The atrium is normal in size. Cardiac Anatomy: LEFT VENTRICLE: The cavity size was dilated. Wall thickness was increased. Global systolic function is severely reduced. The LVEF cannot be accurately assessed on this limited study. LEFT ATRIUM: The atrium is normal in size. RIGHT VENTRICLE: The cavity size is dilated. Systolic function is reduced. PERICARDIUM: There is no pericardial effusion. Measurements Left ventricle Value Ref 01/31/2025 IVS, ED, LAX (H) 1.4 cm 0.6 - 1.0 1.4 JUDE, LAX (H) 5.9 cm 4.2 - 5.8 5.5 JUDE/bsa, LAX (N) 2.5 cm/m^2 2.2 - 3.0 2.3 JUDE, LAX chord (H) 6.4 cm 4.2 - 5.8 7.0 ESD, LAX chord (H) 5.9 cm 2.5 - 4.0 5.5 JUDE/bsa, LAX chord (N) 2.7 cm/m^2 2.2 - 3.0 2.9 ESD/bsa, LAX chord (H) 2.5 cm/m^2 1.3 - 2.1 2.3 FS, LAX chord (L) 7 % 25 - 43 21 IVS, ED (H) 1.4 cm 0.6 - 1.0 1.4 PW, ED (H) 1.4 cm 0.6 - 1.0 1.3 Legend: (L) and (H) arlet values outside specified reference range. (N) phillips values inside specified reference range. Procedure data: Procedure information: A transthoracic echocardiogram was performed. Scanning was performed from the parasternal, apical, and subcostal acoustic windows. Transthoracic echocardiogram. Complete 2D, complete spectral Doppler, and color Doppler. Birthdate: Patient birthdate: 1945. Age: Patient is 79year(s) old. Sex: gender: male. Height: 180.3cm. 71in. Weight: 118.8kg. 262lb. Body mass index: 36.6kg/m^2. Body surface area: 2.36m^2. Study date: Study date: 03/17/2025. Study time: 11:56 AM. Amended Stanislaw Lerner [id number] Procedure Note Stanislaw Lerner MD - 03/17/2025 [place] [address] [email or web address] Transthoracic Echocardiogram (Report amended ) Patient: Kameron Man Study ID: ECHO LIMITED WO Gender: M : 1945 Age: 79 Race: CAU Height 180.3cm Study Date: 03/17/2025 Weight: 118.8kg Access. #: [id number] BP: *Referring Physician:* Adrienne Mullen *Ordering Physician:* Nuria Mullenica Aviles manager legal: Nurse: Indications: Evaluate for pericardial effusion. Limited study. STUDY CONCLUSIONS: SUMMARY: - Pericardium: There is no pericardial effusion. - Left ventricle: The cavity size was dilated. Wall thickness wasincreased. Global systolic function is severely reduced. The LVEF cannot beaccurately assessed on this limited study. - Right ventricle: The cavity size is dilated. Systolic function isreduced. - Left atrium: The atrium is normal in size. Cardiac Anatomy: LEFT VENTRICLE: The cavity size was dilated. Wall thickness wasincreased. Global systolic function is severely reduced. The LVEF cannot beaccurately assessed on this limited study. LEFT ATRIUM: The atrium is normal in size. RIGHT VENTRICLE: The cavity size is dilated. Systolic function isreduced. PERICARDIUM: There is no pericardial effusion. Measurements Left ventricle Value Ref 01/31/2025 IVS, ED, LAX (H) 1.4 cm 0.6 - 1.0 1.4 JUDE, LAX (H) 5.9 cm 4.2 - 5.8 5.5 JUDE/bsa, LAX (N) 2.5 cm/m^2 2.2 - 3.0 2.3 JUDE, LAX chord (H) 6.4 cm 4.2 - 5.8 7.0 ESD, LAX chord (H) 5.9 cm 2.5 - 4.0 5.5 JUDE/bsa, LAX chord (N) 2.7 cm/m^2 2.2 - 3.0 2.9 ESD/bsa, LAX chord (H) 2.5 cm/m^2 1.3 - 2.1 2.3 FS, LAX chord (L) 7 % 25 - 43 21 IVS, ED (H) 1.4 cm 0.6 - 1.0 1.4 PW, ED (H) 1.4 cm 0.6 - 1.0 1.3 Legend: (L) and (H) arlet values outside specified reference range. (N) phillips values inside specified reference range. Procedure data: Procedure information: A transthoracic echocardiogram was performed.Scanning was performed from the parasternal, apical, and subcostal acousticwindows. Transthoracic echocardiogram. Complete 2D, complete spectralDoppler, and color Doppler. Birthdate: Patient birthdate: 1945. Age:Patient is 79year(s) old. Sex: gender: male. Height: 180.3cm. 71in.Weight: 118.8kg. 262lb. Body mass index: 36.6kg/m^2. Body surface area: 2.36m^2. Study date: Study date: 03/17/2025. Study time: 11:56 AM. Amended Stanislaw Lerner [id number] Adrienne Mullen POLICE CAPTAIN US ORDERABLES Edited Res ult - Final INTERFACE SYSTEM Refer to clinic/hospital department * POC LACTIC ACID (03/17/2025 10:56 AM CDT) LACTIC ACID POC 1.3 <=2.0 mmol/L 03/17/2025 10:56 AM CDT [facility] - [facility] SPECIMEN SOURCE, GASES POC Blank 03/17/2025 10:56 AM CDT [facility] - [facility] COMMENT, GASES POC Responsible Clinical Caregiver notified 03/17/2025 10:56 AM CDT [facility] - [facility] Blood 03/17/2025 10:5 6 AM CDT 03/17/2025 10:58 AM CDT Aravind Jones DO POINT OF CARE TESTING Final Resu lt Performing Organization Address [facility]/ZIP Co de Phone Number [facility] [employer] [facility] CLIA# [id number] [address], [place] [address] * (ABNORMAL) TROPONIN BASELINE, 5TH GEN (03/17/2025 10:50 AM CDT) Only the most recent of2 resultswithin the time period is included. TROPONIN T, BASELINE 5TH GEN 85(H) <=15 ng/L 03/17/2025 11:42 AM CDT [facility] Blood Venipuncture / Unknown 03/17/2025 10:50 AM CDT 03/17/2025 10:58 AM CDT Narrative [facility] - 03/17/2025 11:42 AM CDT Troponin elevated. Aravind Jones DO CHEMISTRY ORDERABLES Final Resul t Performing Organization Address City/[facility]/ZIP Co de Phone Number [facility] [employer] [facility] CLIA# [id number] [address] [place] [address] * TYPE AND SCREEN (03/17/2025 10:50 AM CDT) Only the most recent of2 resultswithin the time period is included. ABO GROUP A 03/17/2025 12:00 PM CDT [facility] LABORATORY SERVICES -- [facility] RH (D) TYPE Positive 03/17/2025 12:00 PM CDT [facility] LABORATORY SERVICES -- [facility] ANTIBODY SCREEN Negative 03/17/2025 12:00 PM CDT [facility]ORY SERVICES -- [facility] Blood Venipuncture / Unknown 03/17/2025 10:50 AM CDT 03/17/2025 10:58 AM CDT us Aravind Jones DO BLOOD BANK ORDERABLES Edited Res ult - Final [facility]ATORY [facility]# [id number] [address] [facility] [place] [address] * (ABNORMAL) BRAIN NATRIURETIC PEPTIDE, BNP OR PROBNP (03/17/2025 10:50 AM CDT) PROBNP, N TERMINAL 1,370(H) <449 pg/mL 03/17/2025 12:47 PM CDT [facility] LABORATORY [facility] - [facility] Comment: INTERPRETIVE COMMENT based on diagnosis: Diagnostic NT pro-BNP cutoffs for Heart Failure in the absence of renal failure is suggested for the following ranges <75 years: <125 pg/mL >=75 years: <450 pg/mL Exclusionary rule out cut-point for Acute Decompensated Heart Failure(ADHF) All ages: <300 pg/mL Diagnostic NT pro-BNP cutoffs for Acute Decompensated Heart Failure(ADHF) in the absence of renal failure is suggested for the following ages <50 years: > 450 pg/mL 50-75 years: > 900 pg/mL >75 years: >1800 pg/mL Blood Venipuncture / Unknown 03/17/2025 10:50 AM CDT 03/17/2025 10:58 AM CDT us Nova Marks NP CHEMISTRY ORDERABLES Final Result [facility] LABORATORY SERVICES - [facility] CLIA# [id number] [address] [place] [address] * (ABNORMAL) COMPREHENSIVE METABOLIC PANEL (03/17/2025 10:50 AM CDT) Only the most recent of2 resultswithin the time period is included. SODIUM 136 136 - 145 mmol/L 03/17/2025 11:43 AM T [facility] POTASSIUM 4.1 3.5 - 5.0 mmol/L 03/17/2025 11:43 AM T [facility] CHLORIDE 98 98 - 107 mmol/L 03/17/2025 11:43 AM T [facility] CO2 27 22 - 29 mmol/L 03/17/2025 11:43 AM T [facility] CALCIUM 8.8 8.6 - 10.2 mg/dL 03/17/2025 11:43 AM T [facility] BUN 33(H) 8 - 23 mg/dL 03/17/2025 11:43 AM T [facility] CREATININE 1.29(H) 0.67 - 1.17 mg/dL 03/17/2025 11:43 AM T [facility] Comment:The GFR result is no t clinically significant on patients <18 or >70 years of age. GLUCOSE 138(H) 74 - 99 mg/dL 03/17/2025 11:43 AM CDT [facility] TOTAL PROTEIN 6.2(L) 6.7 - 8.6 g/dL 03/17/2025 11:43 AM CDT [facility] ALBUMIN 3.8 3.5 - 5.2 g/dL 03/17/2025 11:43 AM CDT [facility] BILIRUBIN TOTAL 0.5 0.0 - 1.1 mg/dL 03/17/2025 11:43 AM T [facility] ALKALINE PHOSPHATASE 79 40 - 129 U/L 03/17/2025 11:43 AM CDT [facility] LABORATORY [facility] AST 03/17/2025 11:43 AM CDT [facility] Comment:Test cannot be perfo rmed. Sample hemolysis interference above limits. Redraw if indicated. ALT 22 <42 U/L 03/17/2025 11:43 AM CDT [facility] GFR 56 mL/min/1. 73 sq meter 03/17/2025 11:43 AM T [facility] Comment:eGFR calculated with 2020 CKD-EPI equation. Vegetarian diet, extremely high or low muscle mass, and may affect results. Cystatin C with Glomerular Filtration Rate is a suitable alternative for these patients. ANION GAP 11 8 - 16 mmol/L 03/17/2025 11:43 AM T [facility] Blood Venipuncture / Unknown 03/17/2025 10:50 AM CDT 03/17/2025 10:58 AM CDT Narrative [facility] - 03/17/2025 11:43 AM CDT Samples containing indocyanine green cause interferences on Total and/or Direct Bilirubin and must not be measured. us Aravind Jones DO CHEMISTRY ORDERABLES Final Resul t [facility]# [id number] [address] [place] [address] [place] [address] * XR CHEST PA OR AP 1 VW (03/17/2025 10:38 AM CDT) Only the most recent of3 resultswithin the time period is included. Anatomical Region Laterality Modality Chest Computed Radiogr aphy 03/17/2025 10:3 8 AM CDT Impressions 03/17/2025 11:05 AM CDT IMPRESSION: No acute cardiopulmonary process is identified. DICTATION LOCATION: Location 4 Narrative 03/17/2025 11:05 AM CDT EXAM: XR CHEST PA OR AP 1 VW DATE: 03/17/2025 10:38 AM HISTORY: Hypotension COMPARISON: 03/11/2025 FINDINGS: An AP view of the chest was submitted for evaluation. The cardiac silhouette is stably enlarged. There is atherosclerosis. There is a left chest pacemaker device. There is no evidence for an infiltrate, pleural effusion, or pneumothorax. The visualized bony structures are unremarkable. Procedure Note Alan Rodgers MD - 03/17/2025 EXAM: XR CHEST PA OR AP 1 VW DATE: 03/17/2025 10:38 AM HISTORY: Hypotension COMPARISON: 03/11/2025 FINDINGS: An AP view of the chest was submitted for evaluation. The cardiac silhouette is stably enlarged. There is atherosclerosis. There is a left chest pacemaker device. There is no evidence for an infiltrate, pleural effusion, or pneumothorax. The visualized bony structures are unremarkable. IMPRESSION: No acute cardiopulmonary process is identified. DICTATION LOCATION: Location 4 us Aravind Jones DO DIAGNOSTIC IMAGING ORDERABLES Fi nal Result * EKG 12-LEAD (03/17/2025 10:25 AM CDT) Only the most recent of3 resultswithin the time period is included. 03/17/2025 10:2 5 AM CDT Narrative INTERFACE SYSTEM - 03/17/2025 12:58 PM CDT [address] [address] Test Date: 2025-03-17 Pat Name: KAMERON MAN Department: 41 Room: 06 Gender: Male Warm In Worker: sushant : 1945 Requested By: ARAVIND JONES Order Number: [id number] Reading MD: Christina Ott Measurements Intervals [place]el Rate: 80 P: 0 CT: 0 QRS: 203 QRSD: 199 T: 4 QT: 510 QTc: 589 Interpretive Statements Ventricular paced rhythm No further analysis attempted due to paced rhythm Electronically Signed On 03-17-2025 12:58:15 CDT by Christina Ott Procedure Note Christina Ott MD - 03/17/2025 [facility] [address] [place] [address] Test Date: 2025-03-17 Pat Name: KAMERON MAN Department: 41 Room: 06 Gender: Male Warm In Worker: sushant : 1945 Requested By: ARAVIND JONES Order Number: [id number] Reading MD: Christina Ott Measurements Intervals [place]el Rate: 80 P: 0 CT: 0 QRS: 203 QRSD: 199 T: 4 QT: 510 QTc: 589 Interpretive Statements Ventricular paced rhythm No further analysis attempted due to paced rhythm Electronically Signed On 03-17-2025 12:58:15 CDT by Christina Ott us Aravind Jones DO ECG ORDERABLES Final Result Performing Organization Address City/[facility] Co de Phone Number INTERFACE SYSTEM Refer to clinic/hospital department * PULSE OXIMETRY, WITH EXERCISE (03/12/2025 12:14 PM CDT) Narrative [facility] CARDIOLOGY - 03/12/2025 12:14 PM CDT Rogelio Fierro TECHNICAL INTERN 03/12/2025 12:16 PM OXYGEN WALK STUDY Oxygen Walk Study performed per Medicare guidelines for severe lung disease with a SpO2 of 88% or less while on room air at rest or with exertion. Recommendation: Patient requires 0 Liters per minute of oxygen at rest 0 Lpm with exertion to maintain SpO2 of greater or equal to 89%. Pre Test at Rest-RA With Activity-RA Post Test at Rest-RA Time: Oxygen Level: RA RA RA Heart Rate: 80 80 80 SpO2: 94 97 98 Comments about Evaluation: The patient ambulated 100 ft. Please call [phone] for any questions about this walk study. Jayda Nagel MD PFT ORDERABLES Final Result Performing Organization Address [facility] Co de Phone Number [facility] CARDIOLOGY [address] [facility] [place] [address] * PACEMAKER UPGRADE TO ICD (03/11/2025 5:41 PM CDT) [facility] HEART AND VASCULAR - 03/11/2025 6:16 PM CDT CONCLUSION: 1. Successful upgrade from a dual chamber pacemaker system to a multichamber (biventricular) ICD system as described with [facility] equipment. 2. Successful AV junction ablation as described RECOMMENDATIONS: GDMT for cardiomyopathy and CHF Chivo Moreland MD Senior Ui Developer Clinical Cardiac Sap Fico Architect Estimated Blood Loss There was minimal blood loss during procedure. Procedure Details OPERATIVE PROCEDURE: UPGRADE FROM DUAL CHAMBER PACEMAKER SYSTEM TO BIVENTRICULAR ICD SYSTEM AND AV JUNCTION ABLATION Date of procedure: 03/11/2025 Cardiac Sap Fico Architect: Chivo Moreland MD Indication for procedure: Cardiomyopathy; chronic systolic CHF class 3; Left bundle branch block requiring cardiac resynchronization therapy. Procedures: 1. Venography of the left axillary/ subclavian vein. 2. Extraction of the dual chamber pacemaker generator. 3. Implantation of a multi-chamber (Biventricular) ICD system, with placement of a multi-chamber ICD generator, right ventricular defibrillator lead, and left ventricular pacing leads. 4. AV junction radiofrequency ablation Procedure detail: A venogram was performed showing patent axillary/ subclavian vein which showed vessel patency. Lidocaine was injected into the subcutaneous tissue over the left pectoral area. An incision was made and tissue dissection was performed using the cautery. Single axillary venous access was achieved under fluoroscopic guidance over the first rib. Using the double wire technique through the sheath, a 7 Telugu and a 9 Fr peel-away sheaths were inserted. The right ventricular defibrillator lead was placed in the apex; The left ventricular lead was placed in the distal lateral position of the middle cardiac venin. Each lead was sutured to the chest wall with 1-silk. The old device was extracted without complication. The pocket was then revised to accommodate the larger system and immediately irrigated. The leads were inserted into the device and placed into the pocket. The old RV pacing lead was capped. The pocket was closed in multiple layers with 2-0 Vicryl. The skin was further approximated with 4-0 VLoc and sealed with Dermabond. There was no apparent complication and the patient tolerated the procedure well. Multi-chamber ICD generator: [facility] [place] HF The right atrial lead was implanted on 12/14/2021 The right ventricular defibrillator lead is [facility]. Micahel Durata 7120, 65 cm. The left ventricular lead is a quadripolar [facility] Quartet 1458QL, 86 cm. Next, the right femoral vein was accessed with an 8F sheath after lidocaine was injected. The Thermacool DF irrigated catheter was advanced into the RV under fluoscopic guidance. The AV junction was located using the electrogram and ablation was delivered at 40 W which succesfully ablated the AV junction. Hemostasis was achieved by manual pressure. Final programmed parameters were set at VVIR 80. Monitoring zone was set at 151, treatment at 171, and VF at 222 bpm Procedure Note Chivo Moreland MD - 03/11/2025 CONCLUSION: 1. Successful upgrade from a dual chamber pacemaker system to amultichamber (biventricular) ICD system as described with [facility]. 2. Successful AV junction ablation as described RECOMMENDATIONS: GDMT for cardiomyopathy and CHF Chivo Moreland MD Senior Ui Developer Clinical Cardiac Sap Fico Architect Adrienne Mullen POLICE CAPTAIN CUP EP ORDERABLES Final Re sult [facility] HEART AND VASCULAR CLIA #[id number] [address] [facility] [address] [place] [address] * PROTIME-INR (03/11/2025 4:16 AM CDT) PROTIME 13.1 12.7 - 15.1 Seconds 03/11/2025 5:30 AM CDT [facility] INR 1.0 0.9 - 1.1 03/11/2025 5:30 AM CDT [facility] Blood Venipuncture / Unknown 03/11/2025 4:16 AM CDT 03/11/2025 5:04 AM CDT Narrative [facility] SERVICES - [facility] - 03/11/2025 5:30 AM CDT INR Therapeutic Range: Adult: 2.0 - 3.0 for pulmonary embolism or prophylaxis against venous thrombosis or systemic embolization. 2.0 - 3.0 for patients with tissue heart valves. 2.5 - 3.5 for patients with mechanical heart valves or post KS. Pediatric (12 years and under): 1.5 - 3.0 Although the target range in children is not well established, INR values of 1.5 - 3.0 are recommended for most patients. Higher values have been used in children with prosthetic cardiac valves and hereditary clotting disorders. (<3 days) therapeutic ranges have not been established. Adrienne Mullen POLICE CAPTAIN HEMATOLOGY ORDERABLES Maryanne l Result Performing Organization Address City/[facility]/ZIP Co de Phone Number [facility]# [id number] [address] [place] [address] * MAGNESIUM LEVEL (03/09/2025 4:18 PM CDT) Pathologist [facility] MAGNESIUM 2.1 1.6 - 2.4 mg/dL 03/09/2025 5:19 PM CDT [facility] Blood Venipuncture / Unknown 03/09/2025 4:18 PM CDT 03/09/2025 4:29 PM CDT Margaret Crawford MD CHEMISTRY ORDERABLES Final Resul t Performing Organization Address [facility]/ZIP Co de Phone Number [facility] [employer] [facility]# [id number] [address] [place] [address] * (ABNORMAL) HEMOGLOBIN A1C (03/09/2025 4:18 PM CDT) HEMOGLOBIN A1C 9.4(H) <5.7 % 03/09/2025 10:32 PM CDT [facility] EST. AVG GLUCOSE, A1C 223 mg/dL 03/09/2025 10:32 PM CDT [facility] Blood Venipuncture / Unknown 03/09/2025 4:18 PM CDT 03/09/2025 4:29 PM CDT Narrative [facility] - 03/09/2025 10:32 PM CDT HGB A1C INTERPRETATION NORMAL: <5.7% PRE-DIABETES: 5.7 - 6.4% DIABETES: 6.5% OR GREATER Natacha L Caleb WOOD CASKET ASSEMBLER CHEMISTRY ORDERABLES Final Result [facility]# [id number] [address] [place] [address] * CT PROGRAM EVAL IMPLANTABLE IN PERSN DUAL LD PACER (03/09/2025 3:39 PM CDT) 03/09/2025 3:39 PM CDT Narrative INTERFACE SYSTEM - 03/09/2025 3:46 PM CDT SJM Pacemaker interrogation: LW add on - RVR Appropriate dual chamber device function. Battery: 12.5 years Presenting: AFL/Branch Chief at 114bpm Underlying: AFL w/ IC at 90-120bpm Ap <1% Branch Chief 54% AF burden 56%, Vrates >110bpm ~25% No ventricular arrhythmias noted Device programmed VVIR 80 per LW. Pt reporting to ED following OV Per epic, pt takes metoprolol, plavix, amiodarone, eliquis Scheduled for remote in 3 months Procedure Note Provider, Historical - 03/09/2025 SJM Pacemaker interrogation: LW add on - RVR Appropriate dual chamber device function. Battery: 12.5 years Presenting: AFL/Branch Chief at 114bpm Underlying: AFL w/ IC at 90-120bpm Ap <1% Branch Chief 54% AF burden 56%, Vrates >110bpm ~25% No ventricular arrhythmias noted Device programmed VVIR 80 per LW. Pt reporting to ED following OV Per epic, pt takes metoprolol, plavix, amiodarone, eliquis Scheduled for remote in 3 months Tani Patel MD CARDIAC SERVICES ORDERABLES Ed ited Result - Final INTERFACE SYSTEM Refer to clinic/hospital department * Critical Care (03/09/2025 3:33 PM CDT) Narrative Reid Franco MD - 03/09/2025 3:33 PM CDT Reid Franco MD 03/09/2025 10:21 PM Critical Care Performed by: Reid Franco MD Authorized by: Reid Franco MD Critical care provider statement: Critical care time (minutes): 35 Critical care time was exclusive of: Separately billable procedures and treating other patients Critical care was necessary to treat or prevent imminent or life-threatening deterioration of the following conditions: Cardiac failure Critical care was time spent personally by me on the following activities: Development of treatment plan with patient or surrogate, evaluation of patient's response to treatment, ordering and performing treatments and interventions, ordering and review of laboratory studies, ordering and review of radiographic studies, pulse oximetry, re-evaluation of patient's condition, review of old charts, examination of patient, obtaining history from patient or surrogate and discussions with consultants I assumed direction of critical care for this patient from another provider in my specialty: no Care discussed with: admitting provider us Reid Franco MD PROCEDURE/MINOR SURGICAL ORDERAB LES Final Result * ECHO LIMITED W CONTRAST AND WO DOPPLER AND COLOR (01/31/2025 3:37 PM CDT) EJECTION FRACTION EF: INTERFACE SYSTEM 01/31/2025 1:59 PM CDT Narrative INTERFACE SYSTEM - 01/31/2025 3:49 [place] [address] [email or web address] Transthoracic Echocardiogram (Report amended ) Patient: Kameron Man Study ID: ECHO ZEYAD Hernandez Gender: M : 1945 Age: 79 Race: CAU Height 180.3cm Study Date: 01/31/2025 Weight: 118.4kg Access. #: [id number] BP: *Referring Physician:* Dominic Young MD [facility] Dominic YoungOrdering Physician:* Cuauhtemoc Saez manager legal: Nurse: STUDY CONCLUSIONS: SUMMARY: - Left ventricle: [...] Study time: 01:59 PM. Amended Eusebio Bashir [id number]:39 Procedure Note Eusebio Bashir MD - 01/31/2025 [place] [address] [email or web address] Transthoracic Echocardiogram (Report amended ) Patient: Kameron Man Study ID: ECHO LIMITED W D Gender: M : 1945 Age: 79 Race: [facility] Height 180.3cm Study Date: 01/31/2025 Weight: 118.4kg Access. #: [id number] BP: *Referring Physician:* Dominic Young MD [facility] Dominic YoungOrdering Physician:* Cuauhtemoc Saez manager legal: Nurse: STUDY CONCLUSIONS: SUMMARY: - Left ventricle: [...] Study date: 01/31/2025. Study time: 01:59 PM. Jett Oglesbyadrián Eusebio [id number]:39 Cuauhtemoc Saez [facility] ORDERABLES Edited Result - Final INTERFACE SYSTEM Refer to clinic/hospital department * LEFT HEART CATH (01/31/2025 11:50 AM CDT) Narrative [facility] HEART AND VASCULAR [facility] - 02/01/2025 7:32 AM CDT [...] band care. EP consult re: ?upgrade to GUARD CHIEF. GDMT. Coronary Findings Diagnostic Dominance: Right Left [...] Young MD CUP CATH ORDERABLES Final Result [facility] HEART AND VASCULAR [facility]# [id number] [address] [facility] [address] [place] [address] * (ABNORMAL) LIPID PANEL (05/21/2022 2:46 PM CDT) CHOLESTEROL 153 <200 mg/dL [facility] HDL 48 > OR = 40 mg/dL [facility] TRIGLYCERIDE 266(H) <150 mg/dL [facility] Comment: If a non-fasting specimen was collected, consider repeat triglyceride testing on a fasting specimen if clinically indicated. Darshan et al. J. of Clin. Lipidol. 2015;9:129-169. LDL CALCULATED 70 mg/dL (calc) [facility] Comment: Reference range: <100 Desirable range <100 mg/dL for primary prevention; <70 mg/dL for patients with CHD or diabetic patients with > or = 2 CHD risk factors. LDL-C is now calculated using the Ariane calculation, which is a validated novel method providing better accuracy than the Friedewald equation in the estimation of LDL-C. Girma YING et al. GINA. 2013;310(19): 6149-9853 (http://education.Panève/faq/SOL814) CHOL/HDL RATIO 3.2 <5.0 (calc) [facility] TOTAL NON-HDL CHOL(LDL+VLDL) 105 <130 mg/dL (calc) [facility] Comment: For patients with diabetes plus 1 major ASCVD risk factor, treating to a non-HDL-C goal of <100 mg/dL (LDL-C of <70 mg/dL) is considered a therapeutic option. Test Performed at: [facility] [address] [place] [address] [facility] Blood 05/21/2022 2:46 PM CDT 05/21/2022 2:46 PM CDT Dominic Young MD CHEMISTRY ORDERABLES Final Resul t [facility] [phone] [facility] [address] [place] [address] * POC OCCULT BLOOD 1 CARD (01/21/2021 2:16 PM GERMINATION TESTING MANAGER) OCCULT BLOOD 1 CARD POC Negative Negative 01/21/2021 2:16 PM GERMINATION TESTING MANAGER [facility] [employer] [facility] ROTARY DRUM DYER NAME POC JAZZMINE SHERMAN 01/21/2021 2:16 PM GERMINATION TESTING MANAGER [facility] [employer] [facility] Stool STOOL SPECIMEN / Unknown 01/21/2021 2:16 PM GERMINATION TESTING MANAGER 01/22/2021 10:40 AM GERMINATION TESTING MANAGER Master Villegas MD POINT OF CARE TESTING Final Re sult [facility] [employer] [facility] CLIA# [id number] [address] [place] [address] from Last 3 Months or Most Recently Relevant to Health Maintenance Insurance MEDICARE PART A AND B BCBS SUPP RX [employer]IME [employer] Medicare Part D RX [employer] PL[employer] (INTERNAL) [facility] Internal Plans RX EMDEON Commercial Advance Directives For more information, please contact: [phone] Documents on File Type Date Recorded Patient Corporate Training Manager Expl anation Advance Directive POA 02/07/2021 9:09 AM Mental Health Advanced Directive 01/09/2021 4:17 PM Mental Health Advanc ed Directive * Full Code (Latest Code Status on File) Date Activated Date Inactivated Comments 03/17/2025 12:29 PM 03/19/2025 6:59 PM * Full Code Date Activated Date Inactivated Comments 03/11/2025 6:40 PM 03/12/2025 6:39 PM * Full Code Date Activated Date Inactivated Comments 03/11/2025 3:25 PM 03/11/2025 6:40 PM * Full Code Date Activated Date Inactivated Comments 03/09/2025 9:16 PM 03/11/2025 3:25 PM * Full Code Date Activated Date Inactivated Comments 01/31/2025 9:14 AM 01/31/2025 7:04 PM Care Teams Managed Security Sales Consultant Relationship Specialty Start Date End Date Eric Pretty MD [address] [place] [id number] PCP - General Internal Medicine 11/24/19
--- OUTSIDE RECORDS SUMMARY | 2025-05-03 12:29 | XMS_ITS | Encounter Summary ---
Author Organization [facility] Healthcare Address [address] [place] [address] Care Team Providers Care Scrap Worker Name Role Phone Eric Pretty MD Primary Care Provider [phone] Kale MONTANA MD, Master Hunt Unavailable Dominic Young MD Unavailable [phone] Carlos Hernandez MD Unavailable Encounter Details Date Type Department Care Team (Late st Contact Info) Description 04/14/2019 Telephone [facility] at [facility] [address] [place] [address] Kia Kwan MD [address] [facility] [address] [place] [address] Social History Tobacco Use Types [...] on file 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 documented as of this encounter Visit Diagnoses Not on filedocumented in this encounter Care Teams Scrap Worker Relationship Specialty Start Date End Date Eric Pretty MD [address] [place] [address] PCP - General Internal Medicine 01/28/18 Master Henley III, MD [address] [place] [address] Consulting Physician Rheumatology 01/28/18 01/26/24 Dominic Young MD [address] [place] [address] Consulting Physician Cardiology 01/04/20 Carlos Hernandez MD [address] [place] [address] Consulting Physician Rheumatology 01/27/24 documented as of this encounter
[2025-05-03 19:16] LABS: Basophils Percent Auto 0.4 % (0.2-1.2); Eosinophils Absolute Auto 0.1 K/mm3 (0-0.3); Eosinophils Percent Auto 1.6 % (0-4.4); Hematocrit 44.3 % (42.0-52.0); Hemoglobin 14.3 g/dL (14.0-18.0); Immature Granulocyte Absolute 0.02 K/mm3 (0.00-0.031); Immature Granulocyte Percent A 0.3 % (0-0.5); Lymphocytes Absolute Auto 0.67 K/mm3 (0.9-3.2); Lymphocytes Percent Auto 9.6 % (18.3-44.2); Mean Corpuscular HGB Conc 32.3 g/dl (32-36); Mean Corpuscular Hemoglobin 30.3 pg (26-34); Mean Corpuscular Volume 93.9 fl (80-100); Mean Platelet Volume 10.1 fl (7.4-10.4); Monocytes Absolute Auto 0.5 K/mm3 (0.1-0.6); Monocytes Percent Auto 6.6 % (2.6-8.5); Neutrophils Absolute Auto 5.7 K/mm3 (1.3-6.7); Neutrophils Percent Auto 81.5 % (45.5-73.1); Platelet Count Result 258 k/mm3 (150-375); Red Blood Count 4.72 M/mm3 (4.6-6.20); Red Cell Distribution Width 17.4 % (11.5-14.5)
[2025-05-03 19:22] LABS: Add Urine Microscopic? NO; Appearance Urine Clear (Clear); Bilirubin Urine Negative (Negative); Blood Urine Negative (Negative); Color Urine Yellow (Yellow); Glucose Urine UA 3+ mg/dL (Negative); Ketones Urine 1+ mg/dL (Negative); Leukocyte Esterase Ur Negative LEU/UL (Negative); Nitrate Urine Negative (Negative); Protein Urine Negative (Negative); Specific Grav Ur 1.035 (1.001-1.035); Urobilinogen Urine 0.2 mg/dL (<2.0); pH Urine 5.5 (5.0-9.0)
[2025-05-03 19:41] LABS: Anion Gap 9 mmol/L (4-12); Blood Urea Nitrogen 15 mg/dL (9-20); Calcium 9.2 mg/dL (8.4-10.2); Carbon Dioxide 28 mmol/L (22-30); Chloride 100 mmol/L (98-107); Estimated Glomerular Filt Rate > 60; Glucose 269 mg/dL (65-110); Potassium 4.5 mmol/L (3.4-5.0); Sodium 137 mmol/L (137-145)
== END 2025-05-03 11:26 | disposition home or self-care (01) ==
LOC: ANHGOSHLAB 11:27
PROVIDERS: PCP Internal Medicine; Visit Provider Internal Medicine
DX: R05.9 Cough, unspecified (principal); R19.7 Diarrhea, unspecified; R53.83 Other fatigue
CPT/HCPCS: 36415; 80048; 81003; 85025

== ENCOUNTER 2025-05-03 11:32 | Outpatient (CLI) | payer MEDICARE, SELFPAY ==
--- NOTE | ~2025-05-03 | XR_ITS ---
XR chest 2V Ordering provider: Eric Pretty MD History: 79 years Male with . Cough, fatigue . Comparison: None. FINDINGS: MEDIASTINUM: The cardiac silhouette is not enlarged. Left bipolar pacemaker. LUNGS: No effusions or pneumothorax. Opacification in the left lung base suggestive of atelectasis ve rsus pneumonia. OTHER: No free air under the diaphragm. IMPRESSION: Left basilar atelectasis versus pneumonia Reviewed, dictated and finalized at location A.
== END 2025-05-03 11:33 | disposition home or self-care (01) ==
LOC: GOSHIMG 11:32
PROVIDERS: PCP Internal Medicine; Visit Provider Internal Medicine
DX: J98.11 Atelectasis (principal); J18.9 Pneumonia, unspecified organism; R19.7 Diarrhea, unspecified; R53.83 Other fatigue
CPT/HCPCS: 71046

== ENCOUNTER 2025-05-03 13:37 | Observation (INO) | payer MEDICARE, SELFPAY ==
[2025-05-03] VITALS (7 sets, daily range): BP systolic 136–155; BP diastolic 69–83; PULSE 80–82; RESP 12–20; TEMP 36–36.7; O2SAT 93–100; BMI 38.0
--- NOTE | ~2025-05-03 | CT_ITS ---
History: Altered mental status PROCEDURE: CT head without contrast. COMPARISON: 11/07/2023 TECHNIQUE: Axial imaging of the head performed from the skull base to the vertex without IV contrast. Sagittal a nd coronal reformations obtained. DLP: 605 mGy-cm FINDINGS: The ventricles are enlarged. The dilatation of the ventricles is proportional to the degree of sulcal prominence, not uncommon in the senescent brain. Decreased attenuation is identified within the periventricular white matter, likely secondary to micr ovascular ischemic disease, in a patient of this age. There is no mass, mass effect or midline shift. There is no abnormal extra-axial fluid collection or intracranial hemorrhage. Visualized paranasal sinuses are clear. The mastoid air cells are well aerated. No acute displaced fractures within the overlying cranium. Impression: No acute intracranial hemorrhage or suspicious mass effect. Reviewed, dictated and finalized at location A. Impression: No acute intracranial hemorrhage or suspicious mass effect.
--- NOTE | ~2025-05-03 | CT_ITS ---
EXAMINATION: CTA chest PE abdomen pel DATE: 05/03/2025 14:40 INDICATION: Shortness of breath. Abdominal pain. TECHNIQUE: Computed tomography (CT) pulmonary angiogram of the chest was performed with 100 mL Omnipa que-350 intravenous contrast. Additional 3D reconstructions utilizing coronal maximum intensity proje ction (MIP) were performed. CT of the abdomen and pelvis was performed with intravenous contrast util izing the same contrast bolus following a short delay. Automated exposure control and iterative recon struction technique were employed. The dose-length product was 2404.78 mGy-cm. COMPARISON: None FINDINGS: Chest: No pulmonary embolism. Sensitivity decreased in some of the smaller subsegmental pulmonary arteries a t the bilateral lung bases due to some respiratory motion. No pneumonia, pulmonary edema, pleural eff usion or pneumothorax. Heart size is normal. Cardiac pacemaker lead tips at the right atrial appendag e, apex of the right ventricle and in a coronary vein overlying the lateral wall of the left ventricl e having traversed the coronary sinus. No pericardial effusion. Ectatic ascending thoracic aorta fredi uring up to 4.0 cm with no dissection. No pathologically enlarged thoracic lymphadenopathy. Mild thor acic spondylosis. Abdomen/pelvis: Cholecystectomy clips at the gallbladder fossa. Liver, spleen, pancreas and bilateral adrenal glands are normal. Bilateral renal cysts measuring up to 2.3 cm the left kidney. Additional 2.4 cm exophytic lesion at the left kidney with slightly greater than simple fluid attenuation most likely complex pr oteinaceous/hemorrhagic cyst although solid neoplasm cannot be excluded. There is mild colonic divert iculosis with a sigmoid predominance. There is no adjacent inflammatory change to suggest diverticul itis. Small bowel and appendix are normal. Bladder is normal. Change of prior prostatectomy. No free intraperitoneal gas or fluid. No pathologically enlarged abdominal or pelvic lymphadenopathy. L3 and L4 laminectomies with L3-L5 instrumented anterior and posterior spinal fusion. IMPRESSION: 1. No pulmonary embolism or other acute cardiopulmonary disease. 2. Ectatic ascending thoracic aorta measuring up to 4.0 cm. 3. 2.4 cm intermediate attenuation exophytic lesion at the left kidney most likely proteinaceous/hemo rrhagic cyst although solid neoplasm cannot be absolutely excluded. Could consider further evaluation with pre and postcontrast MRI or CT. Reviewed, dictated and finalized at location B. IMPRESSION: 1. No pulmonary embolism or other acute cardiopulmonary disease. 2. Ectatic ascending thoracic aorta measuring up to 4.0 cm. 3. 2.4 cm intermediate attenuation exophytic lesion at the left kidney most lik anderson proteinaceous/hemorrhagic cyst although solid neoplasm cannot be absolutely excluded. Could consider further evaluation with pre and postcontrast MRI or C T.
--- NOTE | 2025-05-03 13:44 | ECG_ITS ---
Test Date: 2025-05-03 13:57:49 Measurements Intervals [place] Rate: 80 P: 248 MO: 130 QRS: -73 QRSD: 185 T: -48 QT: 481 QTc: 555 Interpretive Statements ELECTRONIC VENTRICULAR PACEMAKER UNDERLYING ATRIAL FLUTTER/TACHYCARDIA BASELINE ARTIFACT- II, III, AVF, V3-V5 NO FURTHER INTERPRETATION IS POSSIBLE ATYPICAL ECG No previous ECG available for comparison Electronically Signed On 05-03-2025 14:17:55 CDT by Woo Daniels D.O.
[2025-05-03 13:57] LABS: Basophils Percent Auto 0.5 % (0.2-1.2); Eosinophils Absolute Auto 0.1 K/mm3 (0-0.3); Hematocrit 41.2 % (42.0-52.0); Hemoglobin 13.3 g/dL (14.0-18.0); Immature Granulocyte Absolute 0.03 K/mm3 (0.00-0.031); Immature Granulocyte Percent A 0.5 % (0-0.5); Lymphocytes Absolute Auto 0.59 K/mm3 (0.9-3.2); Lymphocytes Percent Auto 9.9 % (18.3-44.2); Mean Corpuscular HGB Conc 32.3 g/dl (32-36); Mean Corpuscular Hemoglobin 30.1 pg (26-34); Mean Corpuscular Volume 93.2 fl (80-100); Mean Platelet Volume 9.6 fl (7.4-10.4); Monocytes Absolute Auto 0.4 K/mm3 (0.1-0.6); Neutrophils Absolute Auto 4.8 K/mm3 (1.3-6.7); Neutrophils Percent Auto 81.1 % (45.5-73.1); Platelet Count Result 220 k/mm3 (150-375); Red Blood Count 4.42 M/mm3 (4.6-6.20); Red Cell Distribution Width 17.3 % (11.5-14.5)
[2025-05-03 14:07] LABS: Alanine Aminotransferase 22 U/L (6-50); Albumin Level 3.9 g/dL (3.5-5.1); Alkaline Phosphatase 83 U/L (38-126); Anion Gap 10 mmol/L (4-12); Aspartate Amino Transferase 27 U/L (17-59); Blood Urea Nitrogen 15 mg/dL (9-20); Calcium 8.8 mg/dL (8.4-10.2); Carbon Dioxide 22 mmol/L (22-30); Chloride 103 mmol/L (98-107); Estimated CRCL calculation 82 ml/min; Estimated Glomerular Filt Rate > 60; Glucose 280 mg/dL (65-110); Potassium 4.2 mmol/L (3.4-5.0); Sodium 135 mmol/L (137-145); Total Protein 6.5 g/dL (6.3-8.2)
--- OUTSIDE RECORDS SUMMARY | 2025-05-03 14:58 | XMS_ITS | Encounter Summary ---
Author Organization [facility] Address [address] [place] [address] Care Team Providers Care Art Psychotherapist Name Role Phone Eric Pretty MD Primary Care Provider + Reason for Visit * Reason Onset Date Comments Medication Question 05/02/2025 Encounter Details Date Type Department Care Team (Late st Contact Info) Description 05/02/2025 Telephone [facility] HEART AND VASCULAR EP AT [facility] [address] [place] [address] Elver Bazzi NP [address] [facility] [address] [place] [address] Medication Question Social History Tobacco [...] on file Legal Sex Male 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 Spoke with Ms. Man and she will resume his fesoterodine 8 mg daily. Will call if he has any issueswith retaining fluid. Elver Bazzi, OB/GYN DOCTOR to Me (Selected Message) 05/02/25 8:41 AM Patient may resume. Thanks Me to [facility] Heart And Vasc Ep At [...] Thank you. Johanna Kameron Man to P [facility] Heart And Vasc Ep At [...] Description 05/24/2025 1:15 PM CDT Office Visit [facility] HEART AND VASCULAR EP AT [place] [address] [place] [address] Cuauhtemoc Saez DNP [address] [place] [address] [address] [place] [address] 07/20/2025 8:00 AM CDT Procedure visit [facility] HEART AND VASCULAR EP AT [address] [place] [address] 08/08/2025 12:00 PM CDT Office Visit [facility] Heart and Vascular At [address] [place] [address] Dominic Young MD [address] [place] [address] [address] [place] [address] documented as of this encounter Visit Diagnoses Not on filedocumented in this encounter Care Teams Art Psychotherapist Relationship Specialty Start Date End Date Eric Pretty MD [address] [place] [address] PCP - General Internal Medicine 11/24/19 documented as of this encounter
--- OUTSIDE RECORDS SUMMARY | 2025-05-03 14:58 | XMS_ITS | Encounter Summary ---
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 documented as of this encounter Visit Diagnoses Not on filedocumented in this encounter Care Teams Screening Tech Relationship Specialty Start Date End Date Eric Pretty MD [address] [facility] [address] [place] [address] PCP - General Internal Medicine 01/28/18 Dominic Young MD [address] [place] [address] Consulting Physician Cardiology 01/04/20 Carlos Hernandez MD [address] [place] [address] Consulting Physician Rheumatology 01/27/24 documented as of this encounter
--- OUTSIDE RECORDS SUMMARY | 2025-05-03 14:58 | XMS_ITS | Continuity of Care Document ---
Author Organization [facility] Address [address] [place] [address] Phone Care Team Providers Care Weaving Supervisor Name Role Phone Chance Monroy Unavailable Unavailable Procedures Procedure Date Visual Field Examination(s) Office/outpatient Visit, Est Corneal Pachymetry Fundus Photography W/ Report Eye Exam, New Patient Advance Directives Directive Yes / No Effective Date File Name No Information Encounters Encounter Description Practice Location Reason(s) For Visit Diagnoses Date Provider Providers Copied on Encounter [facility], [address] [place] [address] [address], [place], [place], [id number], tel:[phone] [facility] No Information [address], [place], [address], . tel:[phone] Referring Provider: Alondra Thomas [address], [place], [address]. tel:[phone] Office/outpat ient Visit, Est [facility], [address] [place] [address] [address], [place], [place], [id number], tel:[phone] [facility] No Information 0[address], [place], [address], [place]. tel:[phone] Referring Provider: Chance Wagner, [address], [place], [address]. tel:[phone] [facility], [address], [place], [place], [id number], [place] tel:[phone] [facility] No Information [address]. [address] [facility] , [address], [place], [address], [place]. tel:[phone] Family History Family Member Type Diagnosis Age [...]
--- OUTSIDE RECORDS SUMMARY | 2025-05-03 14:58 | XMS_ITS | Referral Summary ---
Author Organization [facility] [address] Address [address] [place] [address] Care Team Providers Care Videotape Sales Representative Name Role Phone Eric Pretty MD Primary Care Provider [phone] Dominic Young MD Unavailable [phone] Carlos Hernandez MD Unavailable [phone] Encounters Date Type Department Care Team Description 04/08/2025 Telephone [facility] [address] [place] [phone] Natacha Henley 04/01/2025 Telephone [facility] [address] [place] [phone] Olga Goodson Please schedule next Reclast. Thank you! 04/01/2025 1:15 PM CDT Office Visit [facility] [address] [place] [phone] Olga Bueno PA Rheumatoid arthritis of [...] occurs. Assessment & Plan (12/24/2024 12:49 PM PARTS CLEANER): BMD 06/09/24: LFN 0.761, tscore -1.2 Total [...] occurs. Assessment & Plan (09/23/2024 2:49 PM PARTS CLEANER): BMD 06/09/24: LFN 0.761, tscore -1.2 Total [...] candidate Assessment & Plan (09/23/2024 1:14 PM PARTS CLEANER): Xrays 2016: Moderate osteoarthritis of the acromioclavicular [...] walks. Assessment & Plan (12/12/2022 3:07 PM PARTS CLEANER): R shoulder hurting for the past 2-3 days. May have been triggered by carrying in grocery bags. Hx rotator cuff tears per pt's report. Recommend heat/ice, rest. Will order PT. Consider seeing ortho if not improving Atherosclerotic cardiovascular disease Assessment & Plan (11/12/2022 3:08 PM PARTS CLEANER): S/p multiple MIs/cardiac arrest, sick sinus, CHF. Has pacemaker. 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 On eliquis and clopidogrel History of DVT of lower extremity 11/12/2022 History of prostate cancer 11/12/2022 Overview (11/12/2022): Treated with radiation in 2017 Chronic pain syndrome 12/16/2021 Type 2 diabetes mellitus wit h diabetic neuropathy, unspecified 11/17/2020 Chronic pain of right knee 06/08/2019 Assessment & Plan (09/23/2024 1:05 PM PARTS CLEANER): Mild OA on xray from 06/04. Had [...] benefit. Assessment & Plan (01/04/2020 12:03 PM PARTS CLEANER): Mild OA on xray from 06/04. Had cortisone shots years ago but they spiked his sugars. Had zilretta on 10/29/19 as this formulation causes less systemic steroid effect than regular triamcinolone injection. However, he reported no benefit. Assessment & Plan (10/26/2019 2:15 PM PARTS CLEANER): Mild OA on xray from 06/04. Had [...] mgmt: [facility] ([facility]ola Cerna) in [facility] Assessment & Plan (04/01/2025 4:13 PM CDT): 3 prior back surgeries and still having a lot of pain. Decided against pursuing any more surgery. Has been to pain mgmt in [facility]. Continues to take gabapentin for neuropathic pain. Assessment & Plan (12/24/2024 2:28 PM PARTS CLEANER): 3 prior back surgeries and still having a lot of pain. Decided against pursuing any more surgery. Has been to pain mgmt in [facility]. Continues to take gabapentin for neuropathic pain. Assessment & Plan (09/23/2024 1:05 PM PARTS CLEANER): 3 prior back surgeries and still having a lot of pain. Decided against pursuing any more surgery. Has been to pain mgmt in [facility]. Continues to take gabapentin for neuropathic pain. Assessment & Plan (06/22/2024 3:21 PM CDT): 3 prior back surgeries and still having a lot of pain. Decided against pursuing any more surgery. Has been to pain mgmt in [facility]. Continues to take gabapentin for neuropathic pain. Assessment & Plan (03/16/2024 4:37 PM CDT): 3 prior back surgeries and still having a lot of pain. Decided against pursuing any more surgery. Has been to pain mgmt in [facility]. Continues to take gabapentin for neuropathic [...] surgery. Has been to pain mgmt in [facility]. Continues to take gabapentin for neuropathic pain Assessment & Plan (07/28/2023 3:39 PM CDT): 3 prior back surgeries and still having a lot of pain. Decided against pursuing any more surgery. Has been to pain mgmt in [facility]. Continues to take gabapentin for neuropathic pain Assessment & Plan (05/27/2023 4:30 PM CDT): 3 prior back surgeries and still having a lot of pain. Thinking about going back to see nsg for opinion if there is anything else he can do. Has been to pain mgmt in [facility]. Continues to take gabapentin for neuropathic pain Assessment & Plan (11/12/2022 3:05 PM PARTS CLEANER): 3 prior back surgeries and he does not want to have any additional surgery. Sees pain mgmt in [facility]. Discussed pain stimulator but he deferred for now. Continues to take gabapentin for neuropathic pain Assessment & Plan (01/04/2020 12:04 PM PARTS CLEANER): No surgery planned. Continue to f/u with pcp and pain mgmt. Encouraged to continue water exercise. Declines PT. Discuss weight loss treatments with pcp. He used to be on duloxetine for mood and chronic pain and can't remember why he stopped. He would be willing to restart this now. Begin 30mg daily. Assessment & Plan (10/26/2019 2:16 PM PARTS CLEANER): No surgery planned. Continue to f/u with [...] & Plan (08/21/2018 2:15 PM CDT): Saw power superintendent who put him back on midodrine. Just [...] Neg quantiferon 12/18 Neg hepatitis 12/18 utd [id number], [id number], yearly flu shot. Had shingrix Had RSV vaccine Had original COVID vaccine series but not additional boosters Assessment & Plan (12/24/2024 12:50 PM PARTS CLEANER): Neg quantiferon 12/18 Neg hepatitis 12/18 utd , [id number], yearly flu shot. Had shingrix Had RSV vaccine Had original COVID vaccine series but not additional boosters Assessment & Plan (09/23/2024 1:19 PM PARTS CLEANER): Neg quantiferon 12/18 Neg hepatitis 12/18 utd , [id number], yearly flu shot. Had shingrix Had RSV vaccine Had original COVID vaccine series but not additional boosters Assessment & Plan (06/22/2024 1:27 PM CDT): Neg quantiferon 12/18 Neg hepatitis 12/18 utd [id number], [id number], yearly flu shot. Recommend shingrix, COVID booster Assessment & Plan (03/16/2024 2:20 PM CDT): Neg quantiferon 12/18 Neg hepatitis 12/18 utd [id number], aneikifhr06, yearly flu shot. Recommend shingrix, COVID booster Assessment & Plan (01/27/2024 1:06 PM CDT): Neg quantiferon 12/18 Neg hepatitis 12/18 utd [id number], , yearly flu shot. Recommend shingrix, COVID booster Assessment & Plan (10/28/2023 3:46 PM PARTS CLEANER): Neg quantiferon 12/18 Neg hepatitis 12/18 utd [id number], [id number], yearly flu shot. Recommend shingrix, COVID booster Assessment & Plan (07/28/2023 2:25 PM CDT): Neg quantiferon 12/18 Neg hepatitis 12/18 utd [id number], [id number], yearly flu shot. Recommend shingrix, COVID booster Assessment & Plan (05/27/2023 1:55 PM CDT): Neg quantiferon 12/18 Neg hepatitis 12/18 utd [id number], [id number], flu shot. Recommend shingrix, COVID boosters if not done Assessment & Plan (04/17/2023 4:33 PM CDT): Neg quantiferon 12/18 Neg hepatitis 12/18 utd [id number], , flu shot. Recommend shingrix, COVID boosters if not done Assessment & Plan (12/12/2022 3:06 PM PARTS CLEANER): Neg quantiferon 12/18 Neg hepatitis 12/18 utd , [id number], flu shot. Recommend shingrix, COVID boosters if not done Will advise Evusheld if he goes back on Rituxan in the future Assessment & Plan (11/12/2022 3:05 PM PARTS CLEANER): Neg quantiferon 11/03 Neg hepatitis 18 utd [id number], maemfdtoo29, flu shot. Recommend shingrix, COVID boosters if not done Will advise Evusheld if he goes back on Rituxan in the future Assessment & Plan (01/04/2020 11:23 AM PARTS CLEANER): Neg quantiferon 11/03 Neg hepatitis 11/03 utd [id number], [id number], flu shot. Recommend shingrix Assessment & Plan (10/26/2019 11:19 AM PARTS CLEANER): Neg quantiferon 11/03 Neg hepatitis 18 utd , [id number], flu shot. Recommend shingrix Assessment & Plan (08/10/2019 11:37 AM CDT): Neg quantiferon 11/03 Neg hepatitis 11/03 Assessment & Plan (06/08/2019 12:09 PM CDT): Neg quantiferon 11/03 Neg hepatitis 11/03 Assessment & Plan (03/26/2019 8:13 AM CDT): Neg quantiferon 11/03 Neg hepatitis 11/03 Assessment & Plan (12/24/2018 9:59 PM PARTS CLEANER): Neg quantiferon 11/03 Neg hepatitis 11/03 Syncope and collapse 08/28/2017 Orthostasis 08/28/2017 Coronary artery disease invo lving [place] coronary artery of [place] heart with angina pectoris 08/28/2017 Assessment & Plan (01/04/2020 12:04 PM PARTS CLEANER): Pt had abnormal stress test followed by cardiac cath, stenting. Symptoms currently improved. power superintendent Dr. Young. Requested lipid panel so will [...] Overview (02/21/2017): Seasonal allergies Rheumatoid arthritis of [facility] with negative rheumatoid factor 05/06/2011 Overview [...] needed Assessment & Plan (12/24/2024 2:28 PM PARTS CLEANER): cdai = 33, high Was not seen [...] needed Assessment & Plan (09/23/2024 2:48 PM PARTS CLEANER): cdai = 17, moderate Was not seen [...] weeks Assessment & Plan (10/28/2023 3:45 PM PARTS CLEANER): cdai = 10, low, improving Was not [...] month Assessment & Plan (12/12/2022 3:05 PM PARTS CLEANER): cdai = 27, high Last seen in [...] month Assessment & Plan (11/12/2022 3:10 PM PARTS CLEANER): cdai = 32, high Last seen in [...] month Assessment & Plan (01/04/2020 11:21 AM PARTS CLEANER): cdai = 26, high Pt received first [...] months Assessment & Plan (10/26/2019 2:17 PM PARTS CLEANER): cdai = 30 Pt received first Rituxan [...] today. Assessment & Plan (12/24/2018 9:58 PM PARTS CLEANER): cdai = 13, low-moderate Pt received first [...] doing. Assessment & Plan (10/26/2018 9:41 AM PARTS CLEANER): High cdai. Patient has been having more [...] on file Legal Sex Male 3:50 PM PARTS CLEANER Gender Identity Not on file Sexual Orientation [...] home safety. Medical Devices Implanted Type Area Dowel Sticker Operator Device Identifier Shelf Expiration Date Model / Serial / Lot Stents Heart Description:cardiac stents Hardware Spine Lumbar Description:lumbar hardware Procedures Procedure Name Priority Date/Time Associated Diagnosis Comments COMPREHENSIVE METABOLIC PANEL Routine 12/24/2024 1:20 PM PARTS CLEANER 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 factor (HCC) High risk medications (not anticoagulants) long-term use LIPID PANEL Routine 01/04/2020 11:48 AM PARTS CLEANER HEPATITIS PANEL, ACUTE Routine 8 11:17 AM PARTS CLEANER HEMOGLOBIN A1C Routine 08/05/2014 3:33 PM CDT from Last 3 Months or Most Recently Relevant to Health Maintenance Results * (ABNORMAL) Comprehensive metabolic panel (12/24/2024 1:20 PM PARTS CLEANER) [facility] Glucose 96 65 - 99 mg/dL [facility] [...] ALT (SGPT) 19 9 - 46 U/L [facility] Blood 12/24/2024 1:20 PM PARTS CLEANER 12/24/2024 1:21 PM PARTS CLEANER us [address] LAB BLOOD ORDERABLES Fin al Result MARIANN Pinedo [address] [id number] * (ABNORMAL) Lipid panel (01/04/2020 11:48 AM PARTS CLEANER) Cholesterol 155 <200 mg/dL [facility] [place] HDL 50 > OR = 40 mg/dL [facility] [place] Triglycerides 355(H) <150 mg/dL [facility] [place] Comment: If a non-fasting specimen was collected, consider repeat triglyceride testing on a fasting specimen if clinically indicated. Darshan et al. J. of Clin. Lipidol. 2015;9:129-169. LDL 62 mg/dL (calc) [facility] [place] Comment: Reference range: <100 Desirable range <100 mg/dL for primary prevention; <70 mg/dL for patients with CHD or diabetic patients with > or = 2 CHD risk factors. LDL-C is now calculated using the Girma-Ramos calculation, which is a validated novel method providing better accuracy than the Friedewald equation in the estimation of LDL-C. Girma SS et al. GINA. 2013;310(19): 0031-5448 (http://education.[employer]/faq/XGX909) Chol/HDL ratio 3.1 <5.0 (calc) [facility] [place] Non-HDL, (LDL+VLDL) 105 <130 mg/dL (calc) [facility] [place] Comment: For patients with diabetes plus 1 major ASCVD risk factor, treating to a non-HDL-C goal of <100 mg/dL (LDL-C of <70 mg/dL) is considered a therapeutic option. 01/04/2020 11:4 8 AM PARTS CLEANER 01/04/2020 11:49 AM PARTS CLEANER Narrative Resulting Agency Comment Performing Organization Information: Site ID: [id number] Name: Mariann Pinedo Address: [address] [id number] Director: Dio Vaca D.O., MPH us [address] LAB BLOOD ORDERABLES Fin al Result [facility] Shrestha * Hepatitis panel, acute (11/03/2018 11:17 AM PARTS CLEANER) Hep A IgM NON-REACTI VE NON-REACTI VE [facility] [place] HepBsAg NON-REACTI VE NON-REACTI VE [facility] [place] Hep B core IgM NON-REACTI VE NON-REACTI VE [facility] [place] Hep C Ab NON-REACTI VE NON-REACTI VE [facility] [place] SIGNAL TO CUT-OFF 0.02 <1.00 [facility] [place] 11/03/2018 11:1 7 AM PARTS CLEANER 11/03/2018 11:18 AM PARTS CLEANER Narrative Resulting Agency Comment Performing Organization Information: Site ID: [id number] Name: Mariann Pinedo Address: [address] [id number] Director: Dio Vaca D.O., MPH us Master Henley III, MD LAB MICROBIOLOGY - GENERAL ORDERABLES Final Result Performing Organization Address City/[facility]/ZIP Co de Phone Number [facility] Shrestha from Last 3 Months or Most Recently Relevant to [place] [address] [place] [address] MEDICARE [facility] MEDICARE [employer] [facility] Care Teams Videotape Sales Representative Relationship Specialty Start Date End Date Eric Pretty MD [address] [facility] [address] [place] [address] PCP - General Internal Medicine 01/28/18 Dominic Young MD [address] [facility] [address] [place] [address] Consulting Physician Cardiology 01/04/20 Carlos Hernandez MD [address] [place] [address] Consulting Physician Rheumatology 01/27/24
--- OUTSIDE RECORDS SUMMARY | 2025-05-03 14:58 | XMS_ITS | Clinical Summary ---
Author Organization [facility] [address] Address [address] [place] [address] Care Team Providers Care Earth Science Laboratory Technician Name Role Phone Eric Pretty MD Primary Care Provider [phone] Dominic Young MD Unavailable [phone] Carlos Hernandez MD Unavailable [phone] Allergies Active Allergy Reactions Criticality Noted [...] occurs. Assessment & Plan (12/24/2024 12:49 PM ANIMAL NUTRITIONIST): BMD 06/09/24: LFN 0.761, tscore -1.2 Total [...] occurs. Assessment & Plan (09/23/2024 2:49 PM ANIMAL NUTRITIONIST): BMD 06/09/24: LFN 0.761, tscore -1.2 Total [...] candidate Assessment & Plan (09/23/2024 1:14 PM ANIMAL NUTRITIONIST): Xrays 2016: Moderate osteoarthritis of the acromioclavicular [...] walks. Assessment & Plan (12/12/2022 3:07 PM ANIMAL NUTRITIONIST): R shoulder hurting for the past 2-3 days. May have been triggered by carrying in grocery bags. Hx rotator cuff tears per pt's report. Recommend heat/ice, rest. Will order PT. Consider seeing ortho if not improving Atherosclerotic cardiovascular disease 12/27/202 2 Assessment & Plan (11/12/2022 3:08 PM ANIMAL NUTRITIONIST): S/p multiple MIs/cardiac arrest, sick sinus, CHF. Has pacemaker. 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 On eliquis and clopidogrel History of DVT of lower extremity 11/12/2022 History of prostate cancer 11/12/2022 Overview (11/12/2022): Treated with radiation in 2017 Chronic pain syndrome 12/16/2021 Type 2 diabetes mellitus wit h diabetic neuropathy, unspecified 11/17/2020 Chronic pain of right knee 06/08/2019 Assessment & Plan (09/23/2024 1:05 PM ANIMAL NUTRITIONIST): Mild OA on xray from 06/04. Had [...] benefit. Assessment & Plan (01/04/2020 12:03 PM ANIMAL NUTRITIONIST): Mild OA on xray from 06/04. Had cortisone shots years ago but they spiked his sugars. Had zilretta on 10/29/19 as this formulation causes less systemic steroid effect than regular triamcinolone injection. However, he reported no benefit. Assessment & Plan (10/26/2019 2:15 PM ANIMAL NUTRITIONIST): Mild OA on xray from 06/04. Had [...] mgmt: [facility] (Lola Cerna) in [facility] Assessment & Plan (04/01/2025 4:13 PM CDT): 3 prior back surgeries and still having a lot of pain. Decided against pursuing any more surgery. Has been to pain mgmt in [facility]. Continues to take gabapentin for neuropathic pain. Assessment & Plan (12/24/2024 2:28 PM ANIMAL NUTRITIONIST): 3 prior back surgeries and still having a lot of pain. Decided against pursuing any more surgery. Has been to pain mgmt in [facility]. Continues to take gabapentin for neuropathic pain. Assessment & Plan (09/23/2024 1:05 PM ANIMAL NUTRITIONIST): 3 prior back surgeries and still having a lot of pain. Decided against pursuing any more surgery. Has been to pain mgmt in [facility]. Continues to take gabapentin for neuropathic pain. Assessment & Plan (06/22/2024 3:21 PM CDT): 3 prior back surgeries and still having a lot of pain. Decided against pursuing any more surgery. Has been to pain mgmt in [facility]. Continues to take gabapentin for neuropathic pain. Assessment & Plan (03/16/2024 4:37 PM CDT): 3 prior back surgeries and still having a lot of pain. Decided against pursuing any more surgery. Has been to pain mgmt in [facility]. Continues to take gabapentin for neuropathic [...] surgery. Has been to pain mgmt in [facility]. Continues to take gabapentin for neuropathic pain Assessment & Plan (07/28/2023 3:39 PM CDT): 3 prior back surgeries and still having a lot of pain. Decided against pursuing any more surgery. Has been to pain mgmt in [facility]. Continues to take gabapentin for neuropathic pain Assessment & Plan (05/27/2023 4:30 PM CDT): 3 prior back surgeries and still having a lot of pain. Thinking about going back to see nsg for opinion if there is anything else he can do. Has been to pain mgmt in [facility]. Continues to take gabapentin for neuropathic pain Assessment & Plan (11/12/2022 3:05 PM ANIMAL NUTRITIONIST): 3 prior back surgeries and he does not want to have any additional surgery. Sees pain mgmt in [facility]. Discussed pain stimulator but he deferred for now. Continues to take gabapentin for neuropathic pain Assessment & Plan (01/04/2020 12:04 PM ANIMAL NUTRITIONIST): No surgery planned. Continue to f/u with pcp and pain mgmt. Encouraged to continue water exercise. Declines PT. Discuss weight loss treatments with pcp. He used to be on duloxetine for mood and chronic pain and can't remember why he stopped. He would be willing to restart this now. Begin 30mg daily. Assessment & Plan (10/26/2019 2:16 PM ANIMAL NUTRITIONIST): No surgery planned. Continue to f/u with [...] & Plan (08/21/2018 2:15 PM CDT): Saw therapy director who put him back on midodrine. Just [...] Neg quantiferon 12/18 Neg hepatitis 12/18 utd [id number], [id number], yearly flu shot. Had shingrix Had RSV vaccine Had original COVID vaccine series but not additional boosters Assessment & Plan (12/24/2024 12:50 PM ANIMAL NUTRITIONIST): Neg quantiferon 12/18 Neg hepatitis 12/18 utd [id number], ztokbjyxl40, yearly flu shot. Had shingrix Had RSV vaccine Had original COVID vaccine series but not additional boosters Assessment & Plan (09/23/2024 1:19 PM ANIMAL NUTRITIONIST): Neg quantiferon 12/18 Neg hepatitis 12/18 utd , [id number], yearly flu shot. Had shingrix Had RSV vaccine Had original COVID vaccine series but not additional boosters Assessment & Plan (06/22/2024 1:27 PM CDT): Neg quantiferon 12/18 Neg hepatitis 12/18 utd goyzjpr90, wyojcbtxp37, yearly flu shot. Recommend shingrix, COVID booster Assessment & Plan (03/16/2024 2:20 PM CDT): Neg quantiferon 12/18 Neg hepatitis 12/18 utd kcyqewq83, vxwfeutzw44, yearly flu shot. Recommend shingrix, COVID booster Assessment & Plan (01/27/2024 1:06 PM CDT): Neg quantiferon 12/18 Neg hepatitis 12/18 utd [id number], wnezuxmme94, yearly flu shot. Recommend shingrix, COVID booster Assessment & Plan (10/28/2023 3:46 PM ANIMAL NUTRITIONIST): Neg quantiferon 12/18 Neg hepatitis 12/18 utd brwyvxm21, arhnvxtmt71, yearly flu shot. Recommend shingrix, COVID booster Assessment & Plan (07/28/2023 2:25 PM CDT): Neg quantiferon 12/18 Neg hepatitis 12/18 utd vrrazby99, kpvnwflwi81, yearly flu shot. Recommend shingrix, COVID booster Assessment & Plan (05/27/2023 1:55 PM CDT): Neg quantiferon 12/18 Neg hepatitis 12/18 utd , [id number], flu shot. Recommend shingrix, COVID boosters if not done Assessment & Plan (04/17/2023 4:33 PM CDT): Neg quantiferon 12/18 Neg hepatitis 12/18 utd [id number], olqwooyqo46, flu shot. Recommend shingrix, COVID boosters if not done Assessment & Plan (12/12/2022 3:06 PM ANIMAL NUTRITIONIST): Neg quantiferon 12/18 Neg hepatitis 12/18 utd eqlsyvz25, aokxhvqrk85, flu shot. Recommend shingrix, COVID boosters if not done Will advise Evusheld if he goes back on Rituxan in the future Assessment & Plan (11/12/2022 3:05 PM ANIMAL NUTRITIONIST): Neg quantiferon 12/18 Neg hepatitis 12/18 utd , , flu shot. Recommend shingrix, COVID boosters if not done Will advise Evusheld if he goes back on Rituxan in the future Assessment & Plan (01/04/2020 11:23 AM ANIMAL NUTRITIONIST): Neg quantiferon 12/18 Neg hepatitis 12/18 utd [id number], xikhpbyey06, flu shot. Recommend shingrix Assessment & Plan (10/26/2019 11:19 AM ANIMAL NUTRITIONIST): Neg quantiferon 12/18 Neg hepatitis 12/18 utd srtrogs92, kcenopbit45, flu shot. Recommend shingrix Assessment & Plan (08/10/2019 11:37 AM CDT): Neg quantiferon 18 Neg hepatitis 18 Assessment & Plan (06/08/2019 12:09 PM CDT): Neg quantiferon /18 Neg hepatitis 18 Assessment & Plan (03/26/2019 8:13 AM CDT): Neg quantiferon / Neg hepatitis 18 Assessment & Plan (12/24/2018 9:59 PM ANIMAL NUTRITIONIST): Neg quantiferon 11/03 Neg hepatitis 11/03 Syncope and collapse 08/28/2017 Orthostasis 08/28/2017 Coronary artery disease invo lving [place] coronary artery of [place] heart with angina pectoris 08/28/2017 Assessment & Plan (01/04/2020 12:04 PM ANIMAL NUTRITIONIST): Pt had abnormal stress test followed by cardiac cath, stenting. Symptoms currently improved. therapy director Dr. Young. Requested lipid panel so will [...] Overview (02/21/2017): Seasonal allergies Rheumatoid arthritis of [facility] sites with negative rheumatoid factor [...] needed Assessment & Plan (12/24/2024 2:28 PM ANIMAL NUTRITIONIST): cdai = 33, high Was not seen [...] needed Assessment & Plan (09/23/2024 2:48 PM ANIMAL NUTRITIONIST): cdai = 17, moderate Was not seen [...] weeks Assessment & Plan (10/28/2023 3:45 PM ANIMAL NUTRITIONIST): cdai = 10, low, improving Was not [...] month Assessment & Plan (12/12/2022 3:05 PM ANIMAL NUTRITIONIST): cdai = 27, high Last seen in [...] month Assessment & Plan (11/12/2022 3:10 PM ANIMAL NUTRITIONIST): cdai = 32, high Last seen in [...] month Assessment & Plan (01/04/2020 11:21 AM ANIMAL NUTRITIONIST): cdai = 26, high Pt received first [...] months Assessment & Plan (10/26/2019 2:17 PM ANIMAL NUTRITIONIST): cdai = 30 Pt received first Rituxan [...] today. Assessment & Plan (12/24/2018 9:58 PM ANIMAL NUTRITIONIST): cdai = 13, low-moderate Pt received first [...] doing. Assessment & Plan (10/26/2018 9:41 AM ANIMAL NUTRITIONIST): High cdai. Patient has been having more [...] Type Department Care Team Description 04/08/2025 Telephone [facility] [address] [place] [phone] Natacha Henley 04/01/2025 1:15 PM CDT Office Visit [facility] [address] [place] [phone] Olga Bueno PA 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 factor (HCC) (Primary Dx); High risk medications (not anticoagulants) long-term use; Osteoarthritis of spine with radiculopathy, lumbar region; Age-related osteoporosis without current pathological fracture; Chronic systolic (congestive) heart failure (HCC) 04/01/2025 Telephone [facility] [address] [place] [phone] Olga Goodson Please schedule next Reclast. [...] 01/24/2016 - Hypertension Hypertension Hyperlipidemia Hyperlipidemia; Comments: [facility] 01/24/2016 - Gastroesophageal reflux disease GERD Depression Depression Rheumatoid arthritis ([facility]) Rheum atoid arthritis; Comments: [facility] 01/24/2016 - Anxiety disorder Anxiety Diabetic neuropathy ([facility]) Diabet ic neuropathy; Comments: [facility] 01/24/2016 - Benign prostatic hyperplasia BPH - Benign prostatic hypertrophy; Comments: [facility] 01/24/2016 - History of spinal surgery H/O Sp inal surgery; Comments: [facility] 01/24/2016 - Cancer ([facility]) Obesity Family History Medical History Relation Name [...] on file Legal Sex Male 3:50 PM ANIMAL NUTRITIONIST Gender Identity Not on file Sexual Orientation [...] home safety. Medical Devices Implanted Type Area Research Psychologist Device Identifier Shelf Expiration Date Model / Serial / Lot Stents Heart Description:cardiac stents Hardware Spine Lumbar Description:lumbar hardware Procedures Procedure Name Priority Date/Time Associated Diagnosis Comments COMPREHENSIVE METABOLIC PANEL Routine 12/24/2024 1:20 PM ANIMAL NUTRITIONIST 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 factor (HCC) High risk medications (not anticoagulants) long-term use LIPID PANEL Routine 01/04/2020 11:48 AM ANIMAL NUTRITIONIST HEPATITIS PANEL, ACUTE Routine 8 11:17 AM ANIMAL NUTRITIONIST HEMOGLOBIN A1C Routine 08/05/2014 3:33 PM CDT from Last 3 Months or Most Recently Relevant to Health Maintenance Results * (ABNORMAL) Comprehensive metabolic panel (12/24/2024 1:20 PM ANIMAL NUTRITIONIST) Pathologist [facility] Glucose 96 65 - 99 mg/dL [facility] [...] [facility] Blood 12/24/2024 1:20 PM ANIMAL NUTRITIONIST 12/24/2024 1:21 PM ANIMAL NUTRITIONIST us [address] LAB BLOOD ORDERABLES Fin al Result [facility] [address] [place] [address] * (ABNORMAL) Lipid panel (01/04/2020 11:48 AM ANIMAL NUTRITIONIST) Cholesterol 155 <200 mg/dL [facility] [place] HDL 50 > OR = 40 mg/dL [facility] [place] Triglycerides 355(H) <150 mg/dL [facility] [place] Comment: If a non-fasting specimen was collected, consider repeat triglyceride testing on a fasting specimen if clinically indicated. Darshan et al. J. of Clin. Lipidol. 2015;9:129-169. LDL 62 mg/dL (calc) [facility] [place] Comment: Reference range: <100 Desirable range <100 mg/dL for primary prevention; <70 mg/dL for patients with CHD or diabetic patients with > or = 2 CHD risk factors. LDL-C is now calculated using the Girma-Rachel calculation, which is a validated novel method providing better accuracy than the Friedewald equation in the estimation of LDL-C. Girma SS et al. GINA. 2013;310(19): 6464-6607 (http://education.Spacecom/faq/SNB563) Chol/HDL ratio 3.1 <5.0 (calc) [facility] [place] Non-HDL, (LDL+VLDL) 105 <130 mg/dL (calc) [facility] [place] Comment: For patients with diabetes plus 1 major ASCVD risk factor, treating to a non-HDL-C goal of <100 mg/dL (LDL-C of <70 mg/dL) is considered a therapeutic option. 01/04/2020 11:4 8 AM ANIMAL NUTRITIONIST 01/04/2020 11:49 AM ANIMAL NUTRITIONIST Narrative Resulting Agency Comment Performing Organization Information: Site ID: AB Name: Mariann Pinedo Address: [address] [place], [place] [address] [address] Director: Dio Vaca D.O., MPH us [address] LAB BLOOD ORDERABLES Fin al Result Performing Organization Address [facility] Co de Phone Number [facility] [place] * Hepatitis panel, acute (11/03/2018 11:17 AM ANIMAL NUTRITIONIST) Hep A IgM NON-REACTI VE NON-REACTI VE [facility] [place] HepBsAg NON-REACTI VE NON-REACTI VE [facility] [place] Hep B core IgM NON-REACTI VE NON-REACTI VE [facility] [place] Hep C Ab NON-REACTI VE NON-REACTI VE [facility] [place] SIGNAL TO CUT-OFF 0.02 <1.00 [facility] [place] 11/03/2018 11:1 7 AM ANIMAL NUTRITIONIST 11/03/2018 11:18 AM ANIMAL NUTRITIONIST Narrative Resulting Agency Comment Performing Organization Information: Site ID: AB Name: Mariann Pinedo Address: [address] [place] [address] [place] [address] Director: Dio Vaca D.O., MPH us Master Henley III, MD LAB MICROBIOLOGY - GENERAL ORDERABLES Final Result Performing Organization Address City/[facility] Co de Phone Number [facility] [place] from Last 3 Months or Most Recently Relevant to Health Maintenance Insurance MEDICARE MEDICARE [facility] MEDICARE [facility] Care Teams Earth Science Laboratory Technician Relationship Specialty Start Date End Date Eric Pretty MD [address] [facility] [address] [place] [address] PCP - General Internal Medicine 01/28/18 Dominic Young MD [address] [facility] [address] [place] [address] Consulting Physician Cardiology 01/04/20 Carlos Hernandez MD [address] [place] [address] Consulting Physician Rheumatology 01/27/24
--- OUTSIDE RECORDS SUMMARY | 2025-05-03 14:59 | XMS_ITS | Clinical Summary ---
Author Organization [facility] [employer] Address [address] [place] [address] Care Team Providers Care Senior Principal Software Engineer Name Role Phone Eric Pretty MD Primary Care Provider Source Comments [facility],non-owned Affiliates and Associated Physician Practices is amultiple site organization consisting of ambulatory clinics and hospital sitesin [place], [place], [place] and [place]. This disclosure is being madepursuant to the Care Everywhere program and may not contain all information available regarding this patient. 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
--- OUTSIDE RECORDS SUMMARY | 2025-05-03 14:59 | XMS_ITS | Clinical Summary ---
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 Dr. Dominic Young - Electrical Foreman () Problem Noted Date Diagnosed Date Fall [...] Neg quantiferon 11/03 Neg hepatitis 11/03 utd [id number], [id number], flu shot. Recommend shingrix Hyperlipidemia associated with type 2 diabetes m janaitus 08/28/2017 Hypotension 08/28/2017 Overview (05/30/2021): Last Assessment & Plan: Saw merchandising execution manager who put him back on midodrine. Just started this today. Had episode of lightheadedness coming into the office today, better with sitting. Also describes vertigo sometimes and I suggested this might represent a different problem, discuss with pcp. Tachy-michael syndrome 08/28/2017 Syncope and collapse 08/28/2017 Coronary artery disease invo lving three affiliated coronary artery of three affiliated heart with angina pectoris 08/28/2017 Overview (05/30/2021): Last Assessment & Plan: Pt had abnormal stress test followed by cardiac cath, stenting. Symptoms currently improved. merchandising execution manager Dr. Young. Requested lipid panel so will [...] (12/12/2021): Added automatically from request for surgery [id number] Generalized muscle weakness 01/22/2021 05/30/2021 Severe obesity (BMI 35.0-39. 9) with comorbidity 01/22/2021 05/30/2021 Lumbar radiculopathy 05/06/2011 021 C. difficile diarrhea 2020 Asystole 01/11/2022 Dysphagia 01/11/2022 Acute cystitis without hematuria 01/11/2022 Cardiac arrest 01/11/2022 Acute bacterial conjunctivitis of both eyes 01/11/2022 Encounters Date Type Department Care Team Description 05/02/2025 Telephone [facility] HEART AND VASCULAR EP AT [address] [place] [phone] Elver Bazzi, TEMPLATE CHECKER Medication Question 04/18/2025 2:30 PM CDT Procedure visit [facility] HEART [facility] VASCULAR EP AT [address] [place] [phone] NICM (nonischemic cardiomyopathy) (CMS/HCC) (Primary Dx); Encounter for implantable defibrillator reprogramming or check 04/18/2025 Telephone [facility] HEART AND VASCULAR EP AT [address] [place] [phone] Tani Patel MD Pacemaker issues 04/15/2025 9:00 AM CDT Office Visit [facility] HEART AND VASCULAR EP AT [address] [place] [phone] Akanksha Cueva NP NICM (nonischemic cardiomyopathy) (CMS/HCC) (Primary Dx); Biventricular ICD (implantable cardioverter-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; Longstanding persistent atrial fibrillation (CMS/HCC); Mixed hyperlipidemia 04/15/2025 8:30 AM CDT Procedure visit [facility] HEART AND VASCULAR EP AT [address] [place] [phone] NICM (nonischemic cardiomyopathy) (CMS/HCC) (Primary Dx); Biventricular ICD (implantable cardioverter-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; Longstanding persistent atrial fibrillation (CMS/HCC) 04/15/2025 Telephone [facility] HEART AND VASCULAR EP AT [address] [place] [phone] Tani Patel MD Symptoms 04/15/2025 Telephone [facility] Heart and Vascular At [address] [place] [phone] Akanksha Cueva NP Fatigue; Low Blood Pressure 04/05/2025 1:00 PM CDT Office Visit [facility] Heart and Vascular At [address] [place] [phone] Erica Vizcarra NP Coronary artery disease involving three affiliated coronary artery of three affiliated heart without angina pectoris (Primary Dx); Benign hypertension; Paroxysmal atrial fibrillation with RVR (CMS/HCC) 03/31/2025 Results Follow-Up [facility] Heart and Vascular At [address] [place] [phone] Yareli Hyde RN BASIC METABOLIC PANEL, CBC WITH DIFFERENTIAL, BASIC METABOLIC PANEL 03/24/2025 10:30 AM CDT Office Visit [facility] Heart and Vascular At [address] [place] [phone] Erica Vizcarra NP Chronic HFrEF (heart failure with reduced ejection fraction) (CMS/HCC) (Primary Dx); Coronary artery disease involving three affiliated coronary artery of three affiliated heart without angina pectoris; Mixed hyperlipidemia 03/17/2025 10:13 AM CDT - 03/19/2025 3:56 PM CDT Hospital Encounter [facility] Card[facility] Progressive Care Unit [address] [place] [phone] Aravind Jones DO Burke, MD Barron Gregg Mafaza, MD Fall Discharge Disposition: Home Health Care Svc 03/17/2025 10:00 AM CDT Procedure visit [facility] Heart and Vascular At [address] [place] [address] Cardiac pacemaker in situ (Primary Dx) 03/17/2025 9:30 AM CDT Procedure visit [facility] HEART AND VASCULAR EP AT [address] [place] [address] Tachy-michael syndrome (CMS/HCC) (Primary Dx); Pacemaker 03/15/2025 External Device Data ST[facility] ABSTRACTION Provider, Abstract 03/15/2025 External Device Data ST[facility] ABSTRACTION Provider, Abstract 03/15/2025 External Device Data ST[facility] ABSTRACTION Provider, Abstract 03/11/2025 3:08 PM CDT Anesthesia Event [facility] Vocational Nurse [address] [place] [phone] Damion Agrawal MD Thro, Andrew, AA-C 03/11/2025 2:35 PM CDT - 03/11/2025 4:46 PM CDT Surgery [facility] Vocational Nurse [address] [place] [phone] Chivo Moreland MD Pacemaker upgrade to BiV ICD and AV node ablation 03/09/2025 4:14 PM CDT - 03/12/2025 4:39 PM CDT Hospital Encounter [facility] [address] [place] [phone] Margaret Crawford MD Ullery, Brian, MD Baig, Kamran A, MD Weitzel, Laura Deandre, MD Longtine, Hattie, MD Iqbal, MD Robe Gregg Qin, MD Atrial flutter (CMS/HCC) Discharge Disposition: Home or Self Care 03/09/2025 3:00 PM CDT Procedure visit [facility] HEART AND VASCULAR EP AT [place] [address] [facility] [address] [place] [address] Tachy-michael syndrome (CMS/HCC) (Primary Dx); Pacemaker 03/09/2025 3:00 PM CDT Office Visit [facility] HEART AND VASCULAR EP AT [address] [place] [address] Tani Patel MD Atrial flutter with rapid ventricular response (CMS/HCC) (Primary Dx); Cardiac pacemaker in situ; Tachy-michael syndrome (CMS/HCC); Nonischemic cardiomyopathy (CMS/HCC) 03/09/2025 Travel 01/31/2025 11:40 AM CDT - 01/31/2025 12:21 PM CDT Surgery [facility] Vocational Nurse [facility] [place] [address] Dominic Young MD Left heart cath 01/31/2025 9:01 AM CDT - 01/31/2025 4:40 PM CDT Hospital Encounter [facility] Interventional Care [address] [place] [phone] Dominic Young MD Ejection fraction < 50% [...] on file Legal Sex Male 6:01 AM DELINEATOR Gender Identity Not on file Sexual Orientation [...] Description 05/24/2025 1:15 PM CDT Office Visit [facility] HEART AND VASCULAR EP AT [address] [place] [address] Cuauhtemoc Saez DNP [facility] [address] [place] [phone] 07/20/2025 8:00 AM CDT Procedure visit [facility] HEART AND VASCULAR EP AT [address] [place] [address] 08/08/2025 12:00 PM CDT Office Visit [facility] Heart and Vascular At [address] [place] [address] Dominic Young MD [address] [place] [address] [address] [place] [phone] Health Maintenance Due Date Last Done Comments [...] years Discontinued Medical Devices Implanted Type Area Internet Programmer Device Identifier Shelf Expiration Date Model / Serial / Lot Sealant Duraseal 5ml - [id number] Implanted:Qty: 1 on 01/02/2021 by Jarvis Martell MD at [facility] Biological Spine Lumbar INTEGRA [employer]IFESCIENCE [employer] LULA 02/14/2022 / / [id number] [id number] T/Plif, H 13mm, 4' , 12/08 Implanted:Qty: 1 on 01/02/2021 by Jarvis Martell MD at [facility] Cage Spine Lumbar J&J- DEPUY [employer] INC 08/16/2024 [id number] / / [id number] Description:All Depuy spinal hardware was processed on requisition, 571098. Hemostatic Surgiflo 8ml W/Thrombin 2994 - [id number] Implanted:Qty: 1 on 01/02/2021 by Jarvis Martell MD at [facility] Hemostatic Spine Lumbar J&J- ETHICON INC 11/16/2021 2994 / / [id number] Hemostat Gaby Surg Mph Pwd 3gm [id number] - [id number] Implanted:Qty: 1 on 12/14/2021 by Aki Mccray MD at [facility] Hemostatic Left: Chest CR BARD- DAVOL INC 05/14/2026 [id number] / / [id number] Hemostat Gaby Ah Powder 3gm [id number] - [id number] Implanted:Qty: 1 on 03/11/2025 by Chivo Moreland MD at [facility] Hemostatic Left: Chest BARD DAVOL [id number] 09/13/2029 [id number] / / [id number] Lead Pcmkr Tendril St Optm 2087tc-52 - [id number] Implanted:Qty: 1 on 12/14/2021 by Aki Mccray MD at [facility] Lead N/A: Heart [facility] [employer] 11/16/20242087TC-52 / [id number] / Lead Pcmkr Tendril St Optm 2087tc-58 - [id number] Implanted:Qty: 1 on 12/14/2021 by Aki Mccray MD at [facility] Lead N/A: Heart [facility] 07/17/2024 2088TC/58 / [id number] / Lead Quartet Lt Quad 86cm 1458q-86 - [id number] Implanted:Qty: 1 on 03/11/2025 by Chivo Moreland MD at [facility] Lead N/A: Heart [facility] [employer] [id number] 11/16/2027 1458Q/86 / [id number] / Pacemaker Assurity-2 Mri [id number] - [id number] Implanted:Qty: 1 on 12/14/2021 by Aki Mccray MD at [facility] Pacemaker Left: Chest [facility] 05/16/2023 [id number] / [id number] / [id number] Description:Assurity MRI pacemaker and Tendril MRI and [...] / STERILIZED 12/20/2020 / LOAD 110 Log [id number] - Depuy Expedium 5.5 Spine Tray - 1 - Screw Exp Poly 6x40mm [id number] Implanted:Qty: 2 on 05/06/2011 at [facility] not on file) Stent 12/08/2020 / / [id number] Description:placed in the A Stent Synergy Xd 5.0x12mm Evrlms Elut [id number] - [id number] Implanted:Qty: 1 on 12/13/2021 at [facility] Stent N/A: Coronary [employer] LULA 12/18/2022 [id number] / / [id number] Putty Dbx Dbm 5cc 57920 - [id number] Implanted:Qty: 1 on 01/02/2021 by Jarvis Martell MD at [facility] Tissue Spine Lumbar MUSCULOSKELETAL TRANSPLANT FOU 09/04/2021 [id number] / [id number] / Healos Implanted:Qty: 1 on 05/06/2011 at [facility] 05/17/2011 [id number] / / [id number] Description:depuy spine [place] Cage Implanted:Qty: 1 on 05/06/2011 at [facility] / Description:concord bullet c age, load#24 05-01-2011 Durata 65 Cm Implanted:Qty: 1 on 03/11/2025 by Chivo Moreland MD at [facility] N/A: Heart 01/14/2027 TITUS-712 0 / [id number] / Brule Hf Defibrillator Implanted:Qty: 1 on 03/11/2025 by Chivo Moreland MD at [facility] Left: Chest 04/16/2026 TITUS-[facility] [id number] / [id number] / Explanted Type Area Internet Programmer Device Identifier Shelf Expiration Date Model / Serial / Lot Log [id number] - Depuy Expedium 5.5 Spine Tray - 1 - Rene Xpdm 5.5 Ti Prebnt 45mm Implanted:Qty: 1 on 05/06/2011 at [facility] Explanted:Qty: 1 on 01/02/2021 by Jarvis Martell MD at [facility] Rene J&J- DEPUY SPINE INC [id number] / / Log [id number] - Depuy Expedium 5.5 Spine Tray - 1 - Screw Set Inner Implanted:Qty: 2 on 05/06/2011 at [facility] Explanted:Qty: 2 on 01/02/2021 by Jarvis Martell MD at [facility] Screw J&J- MED PROD -OLD / / Description:load#32 05-04-20 11 Procedures Procedure Name Priority Date/Time Associated Diagnosis Comments OH PROGRAM EVAL, IMPLANT DEVICE CARDVERT/DEFIB,MULT I-LEAD W/IN GLOBAL Routine 04/18/2025 3:01 PM CDT NICM (nonischemic cardiomyopathy) (CMS/HCC) Encounter for implantable defibrillator reprogramming or check OH PRGRMG EVAL IMPLANTABLE IN PERSON MULTI LEAD [...] EKG 12-LEAD Stat 03/17/2025 10:25 AM CDT OH PRGRMG EVAL IMPLANTABLE IN PERSON MULTI LEAD [...] WITH DIFFERENTIAL Stat 03/09/2025 4:18 PM CDT OH ECG ROUTINE ECG W/LEAST 12 LDS W/I&R Routine 03/09/2025 3:54 PM CDT Atrial flutter with rapid ventricular response (CMS/HCC) EKG 12-LEAD Stat 03/09/2025 3:54 PM CDT OH PROGRAM EVAL IMPLANTABLE IN PERSN DUAL LD [...] BLOOD 1 CARD Routine 01/21/2021 2:16 PM DELINEATOR from Last 3 Months or Most Recently Relevant to Health Maintenance Results * OH PROGRAM EVAL, IMPLANT DEVICE CARDVERT/DEFIB,MULTI-LEAD W/IN GLOBAL [...] [facility] Comment: Test Performed at: [place] [address] [place] [address] Humberto Byers MD Blood 04/12/2025 1:44 PM CDT 04/12/2025 1:44 PM CDT us Erica Vizcarra NP CHEMISTRY ORDERABLES Final Res ult [facility] [phone] [facility] [address] [place] [address] * (ABNORMAL) CBC WITH DIFFERENTIAL (03/30/2025 2:42 [...] [facility] Comment: Test Performed at: [facility] [address] [place] [address] Humberto Byers MD Blood 03/30/2025 2:42 PM CDT 03/30/2025 2:45 PM CDT Erica Vizcarra NP HEMATOLOGY ORDERABLES Final Re sult [facility] [phone] [facility] [address] [place] [address] * TELEMETRY REPORT (03/22/2025 12:37 PM CDT) Only the most recent of5 resultswithin the time period is included. Provider Scanning ECG ORDERABLES Final Result * (ABNORMAL) POC GLUCOSE (03/19/2025 12:57 PM CDT) Only the most recent of25 resultswithin the time period is included. GLUCOSE POC 146(H) 74 - 99 mg/dL 03/19/2025 12:57 PM CDT [facility] SPECIMEN SOURCE, GLUCOSE POC Whole Blood 03/19/2025 12:57 PM CDT [facility] COMMENT, GLU POC Notified RN/MD 03/19/2025 12:57 PM CDT [facility] Blood, whole 03/19/2025 12:5 7 PM CDT 03/19/2025 1:14 PM CDT Prem Iqbal MD POINT OF CARE TESTING Final Result Performing Organization Address [facility]/ZIP Co de Phone Number [facility] [employer] [facility] CLIA# [id number] [address] [place] [address] * (ABNORMAL) URINALYSIS WITH REFLEX MICROSCOPIC (03/17/2025 4:30 PM CDT) COLOR UA Yellow Pale to Dark Yellow 03/17/2025 5:07 PM CDT [facility] CLARITY UA Clear Clear 03/17/2025 5:07 PM CDT [facility] SPECIFIC GRAVITY UA 1.020 1.003 - 1.035 03/17/2025 5:07 PM CDT [facility] LABORATORY SERVICES - [facility] PH UA 6.0 5.0 - 8.0 03/17/2025 5:07 PM CDT [facility] LABORATORY SERVICES - . [facility] LEUKOCYTE ESTERASE UA Negative Negative 03/17/2025 5:07 PM CDT [facility] LABORATORY SERVICES - [facility] NITRITE UA Negative Negative 03/17/2025 5:07 PM CDT [facility] LABORATORY SERVICES - . [facility] PROTEIN UA Negative Negative 03/17/2025 5:07 PM CDT [facility] LABORATORY SERVICES - [facility] GLUCOSE UA 3+(A) Negative 03/17/2025 5:07 PM CDT [facility] LABORATORY SERVICES - . [facility] KETONES UA Negative Negative 03/17/2025 5:07 PM CDT [facility] LABORATORY SERVICES - . [facility] UROBILINOGEN UA Normal <2.0 mg/dL 5:07 PM CDT [facility] LABORATORY SERVICES - [facility] BILIRUBIN UA Negative Negative 03/17/2025 5:07 PM CDT [facility]ORATORY SERVICES - [facility] BLOOD UA Negative Negative 03/17/2025 5:07 PM CDT [facility]ATORY SERVICES - [facility] Urine URINE SPECIMEN OBTAINED BY CLEAN CATCH PROCEDURE / Unknown Collection / Unknown 03/17/2025 4:30 PM CDT 03/17/2025 4:53 PM CDT us Aravind Jones DO URINE ORDERABLES Final Result [facility]# [id number] [address] [place] [address] [place] [address] * (ABNORMAL) TROPONIN 6 HR, 5TH GEN (03/17/2025 4:23 PM CDT) Only the most recent of2 resultswithin the time period is included. TROPONIN T, 6 HR 5TH GEN 95(H) <=15 ng/L 03/17/2025 5:38 PM CDT [facility] LABORATORY SERVICES - [facility] DELTA 6HR TROPONIN T 10 See Interp. 03/17/2025 5:38 PM CDT [facility] LABORATORY SERVICES - [facility] Blood Venipuncture / Unknown 03/17/2025 4:23 PM CDT 03/17/2025 4:53 PM CDT Narrative [facility] - 03/17/2025 5:38 PM CDT Troponin elevated. Delta indeterminate. Aravind Jones DO CHEMISTRY ORDERABLES Final Resul t Performing Organization Address [facility]/ZIP Co de Phone Number [facility]# [id number] [address] [place] [address] * (ABNORMAL) HEMOGLOBIN AND HEMATOCRIT (03/17/2025 4:23 PM CDT) HEMOGLOBIN 11.7(L) 13.6 - 16.5 g/dL 03/17/2025 5:06 PM CDT [facility] HEMATOCRIT 36.0(L) 40.0 - 48.0 % 03/17/2025 5:06 PM CDT [facility] Blood Venipuncture / Unknown 03/17/2025 4:23 PM CDT 03/17/2025 4:53 PM CDT Nova Marks NP HEMATOLOGY ORDERABLES Final Result Performing Organization Address [facility] Co de Phone Number [facility]# [id number] [address] [place] [address] * VITAMIN B12 AND FOLATE (03/17/2025 4:23 PM CDT) VITAMIN B12 468 232 - 1,245 pg/mL 03/17/2025 5:53 PM CDT [facility] [employer] Comment:It has been reported that between 5 to 10% of patients with values between 200 and 400 pg/mL may experience neuropsychiatric and hematologic abnormalities due to occult B12 deficiency. Less than 1% of patients with values above 400 pg/mL will have symptoms. FOLATE, SERUM 19.7 >4.5 ng/mL 03/17/2025 5:53 PM CDT [facility] Blood Venipuncture / Unknown 03/17/2025 4:23 PM CDT 03/17/2025 4:53 PM CDT Nova Marks TEMPLATE CHECKER CHEMISTRY ORDERABLES Final Result Performing Organization Address City/[facility]/ZIP Co de Phone Number [facility]# [id number] [address] [place] [address] * (ABNORMAL) TROPONIN 2 HR, 5TH GEN (03/17/2025 1:10 PM CDT) Only the most recent of2 resultswithin the time period is included. TROPONIN T, 2 HR 5TH GEN 83(H) <=15 ng/L 03/17/2025 1:51 PM CDT [facility] DELTA 2HR TROPONIN T -2 See Interp. 03/17/2025 1:51 PM CDT [facility] Blood Venipuncture / Unknown 03/17/2025 1:10 PM CDT 03/17/2025 1:10 PM CDT Narrative [facility] - 03/17/2025 1:51 PM CDT Troponin elevated. Delta not changing. Delay in collection of timed specimen beyond recommended collection interval. Results must be interpreted in clinical context. Aravind Jones DO CHEMISTRY ORDERABLES Final Resul t [facility] [employer] [facility] CLIA# [id number] [address] [place] [address] * (ABNORMAL) IRON, TIBC, AND PERCENT SATURATION (03/17/2025 1:10 PM CDT) IRON 54(L) 59 - 158 ug/dL 03/17/2025 1:51 PM CDT [facility] TIBC 325 250 - 450 ug/dL 03/17/2025 1:51 PM CDT [facility] LABORATORY [facility] IRON % SATURATION 17(L) 20 - 50 % 03/17/2025 1:51 PM CDT [facility] TRANSFERRIN 256 200 - 360 mg/dL 03/17/2025 1:51 PM CDT [facility] LAB[facility]ATORY [facility] - [facility] Blood Venipuncture / Unknown 03/17/2025 1:10 PM CDT 03/17/2025 1:10 PM CDT Nova Marks NP CHEMISTRY ORDERABLES Final Result [facility] CLIA# [id number] [address] [place] [address] * CT HEAD CERVICAL SPINE WO CONTRAST (03/17/2025 12:37 PM CDT) Anatomical Region Laterality Modality Head Computed Tomogra phy 03/17/2025 12:2 7 PM CDT Impressions 03/17/2025 12:55 PM CDT IMPRESSION: 1. No acute intracranial process. 2. No evidence of acute fracture in the cervical spine. DICTATION LOCATION: Location 1 - [facility] Narrative 03/17/2025 12:55 PM CDT EXAMINATION: CT [...] cervical spine. DICTATION LOCATION: Location 1 - [facility] us Aravind Jones DO CT ORDERABLES Final Result * ECHO LIMITED WO DOPPLER (03/17/2025 12:10 PM CDT) EJECTION FRACTION EF: INTERFACE SYSTEM 03/17/2025 11:5 6 AM CDT Narrative INTERFACE SYSTEM - 03/17/2025 1:55 PM CDT [address] [address] [employer] Transthoracic Echocardiogram (Report amended ) Patient: Kameron Man Study ID: ECHO LIMITED WO Gender: M : 1945 Age: 79 Race: CHANDA Height 180.3cm Study Date: 03/17/2025 Weight: 118.8kg Access. #: [id number] BP: *Referring Physician:* Adrienne Mullen *Ordering Physician:* Adrienne Mullen shaker screen operator: Nurse: Indications: Evaluate for pericardial effusion. Limited [...] Study time: 11:56 AM. Amended Stanislaw Lerner [id number] Procedure Note Stanislaw Lerner MD - 03/17/2025 [place] [id number] [email or web address] Transthoracic Echocardiogram (Report amended ) Patient: Kameron Man Study ID: ECHO LIMITED WO Gender: M : 1945 Age: 79 Race: CAU Height 180.3cm Study Date: 03/17/2025 Weight: 118.8kg Access. #: [id number] BP: *Referring Physician:* Adrienne Mullen *Ordering Physician:* Nuria Mullenica Aviles shaker screen operator: Nurse: Indications: Evaluate for pericardial effusion. Limited [...] Study time: 11:56 AM. Amended Stanislaw Lerner [id number] Adrienne Mullen TEMPLATE CHECKER US ORDERABLES Edited Res ult - Final INTERFACE SYSTEM Refer to clinic/hospital department * POC LACTIC ACID (03/17/2025 10:56 AM CDT) LACTIC ACID POC 1.3 <=2.0 mmol/L 03/17/2025 10:56 AM CDT [facility] LABORATORY SERVICES - [facility] SPECIMEN SOURCE, GASES POC Blank 03/17/2025 10:56 AM CDT [facility] LAB[facility]ATORY SERVICES - [facility] COMMENT, GASES POC Responsible Clinical Caregiver notified 03/17/2025 10:56 AM CDT [facility] - [facility] Blood 03/17/2025 10:5 6 AM CDT 03/17/2025 10:58 AM CDT Aravind Jones DO POINT OF CARE TESTING Final Resu lt Performing Organization Address [facility]/ZIP Co de Phone Number [facility] [employer] [facility] CLIA# [id number] [address] [place], [place] [address] * (ABNORMAL) TROPONIN BASELINE, 5TH GEN (03/17/2025 10:50 AM CDT) Only the most recent of2 resultswithin the time period is included. TROPONIN T, BASELINE 5TH GEN 85(H) <=15 ng/L 03/17/2025 11:42 AM CDT [facility] Blood Venipuncture / Unknown 03/17/2025 10:50 AM CDT 03/17/2025 10:58 AM CDT Narrative [facility] - 03/17/2025 11:42 AM CDT Troponin elevated. Aravind Jones DO CHEMISTRY ORDERABLES Final Resul t Performing Organization Address City/[facility]/ZIP Co de Phone Number [facility] CLIA# [id number] [address] [place] [address] * TYPE AND SCREEN (03/17/2025 10:50 AM CDT) Only the most recent of2 resultswithin the time period is included. ABO GROUP A 03/17/2025 12:00 PM CDT [facility] LABORATORY SERVICES -- [facility] RH (D) TYPE Positive 03/17/2025 12:00 PM CDT [facility] LABORATORY SERVICES -- [facility] ANTIBODY SCREEN Negative 03/17/2025 12:00 PM CDT [facility] LABORATORY SERVICES -- [facility] Blood Venipuncture / Unknown 03/17/2025 10:50 AM CDT 03/17/2025 10:58 AM CDT us Aarvind Jones DO BLOOD BANK ORDERABLES Edited Res ult - Final [facility] LABORATORY [facility] -- [facility]# [id number] [address] [facility] [address] * (ABNORMAL) BRAIN NATRIURETIC PEPTIDE, BNP OR PROBNP (03/17/2025 10:50 AM CDT) PROBNP, N TERMINAL 1,370(H) <449 pg/mL 03/17/2025 12:47 PM CDT [facility] LABORATORY [facility] - [facility] Comment: INTERPRETIVE COMMENT based on diagnosis: Diagnostic [...] Nova Marks NP CHEMISTRY ORDERABLES Final Result [facility] LABORATORY SERVICES - [facility] CLIA# [id number] [address] [place] [address] * (ABNORMAL) COMPREHENSIVE METABOLIC PANEL (03/17/2025 10:50 AM CDT) Only the most recent of2 resultswithin the time period is included. SODIUM 136 136 - 145 mmol/L 03/17/2025 11:43 AM T [facility] POTASSIUM 4.1 3.5 - 5.0 mmol/L 03/17/2025 11:43 AM T [facility] CHLORIDE 98 98 - 107 mmol/L 03/17/2025 11:43 AM T [facility] CO2 27 22 - 29 mmol/L 03/17/2025 11:43 AM T [facility] CALCIUM 8.8 8.6 - 10.2 mg/dL 03/17/2025 11:43 AM T [facility] BUN 33(H) 8 - 23 mg/dL 03/17/2025 11:43 AM T [facility] CREATININE 1.29(H) 0.67 - 1.17 mg/dL 03/17/2025 11:43 AM T [facility] Comment:The GFR result is no t clinically significant on patients <18 or >70 years of age. GLUCOSE 138(H) 74 - 99 mg/dL 03/17/2025 11:43 AM CDT [facility] TOTAL PROTEIN 6.2(L) 6.7 - 8.6 g/dL 03/17/2025 11:43 AM CDT [facility] ALBUMIN 3.8 3.5 - 5.2 g/dL 03/17/2025 11:43 AM CDT [facility] BILIRUBIN TOTAL 0.5 0.0 - 1.1 mg/dL 03/17/2025 11:43 AM T [facility] ALKALINE PHOSPHATASE 79 40 - 129 U/L 03/17/2025 11:43 AM CDT [facility] LABORATORY [facility] AST 03/17/2025 11:43 AM CDT [facility] Comment:Test cannot be perfo rmed. Sample hemolysis interference above limits. Redraw if indicated. ALT 22 <42 U/L 03/17/2025 11:43 AM CDT [facility] GFR 56 mL/min/1. 73 sq meter 03/17/2025 11:43 AM T [facility] Comment:eGFR calculated with 2020 CKD-EPI equation. Vegetarian diet, extremely high or low muscle mass, and may affect results. Cystatin C with Glomerular Filtration Rate is a suitable alternative for these patients. ANION GAP 11 8 - 16 mmol/L 03/17/2025 11:43 AM T [facility] Blood Venipuncture / Unknown 03/17/2025 10:50 AM CDT 03/17/2025 10:58 AM CDT Narrative [facility] - 03/17/2025 11:43 AM CDT Samples containing indocyanine green cause interferences on Total and/or Direct Bilirubin and must not be measured. us Aravind Jones DO CHEMISTRY ORDERABLES Final Resul t [facility]# [id number] [address] [place] [address] [place] [address] * XR CHEST PA OR AP 1 [...] INTERFACE SYSTEM - 03/17/2025 12:58 PM CDT [address] [address] Test Date: 2025-03-17 Pat Name: KAMERON MAN Department: 41 Room: 06 Gender: Male Tub Wash Operator: sushant : 1945 Requested By: ARAVIND JONES Order Number: [id number] Reading MD: Christina Ott Measurements Intervals Beulah Rate: 80 P: 0 OH: 0 QRS: 203 QRSD: 199 T: 4 QT: 510 QTc: 589 Interpretive Statements Ventricular paced rhythm No further analysis attempted due to paced rhythm Electronically Signed On 03-17-2025 12:58:15 CDT by Christina Ott Procedure Note Christina Ott MD - 03/17/2025 [facility] [address] [place] [address] Test Date: 2025-03-17 Pat Name: KAMERON MAN Department: 41 Room: 06 Gender: Male Tub Wash Operator: sushant : 1945 Requested By: ARAVIND JONES Order Number: [id number] Reading MD: Christina Ott Measurements Intervals Beulah Rate: 80 P: 0 OH: 0 QRS: 203 QRSD: 199 T: 4 QT: 510 QTc: 589 Interpretive Statements Ventricular paced rhythm No further analysis attempted due to paced rhythm Electronically Signed On 03-17-2025 12:58:15 CDT by Christina Ott us Aravind Jones DO ECG ORDERABLES Final Result Performing Organization Address City/[facility] Co de Phone Number INTERFACE SYSTEM Refer to clinic/hospital department * PULSE OXIMETRY, WITH EXERCISE (03/12/2025 12:14 PM CDT) Narrative [facility] - 03/12/2025 12:14 PM CDT Rogelio Fierro TELEVISION PARTS TESTER 03/12/2025 12:16 PM OXYGEN WALK STUDY Oxygen [...] The patient ambulated 100 ft. Please call [phone] for any questions about this walk study. Jayda Nagel MD PFT ORDERABLES Final Result Performing Organization Address [facility] Co de Phone Number [facility] [address] [facility] [address] [address] * PACEMAKER UPGRADE TO ICD (03/11/2025 5:41 PM CDT) [facility] HEART AND VASCULAR - 03/11/2025 6:16 PM CDT CONCLUSION: 1. Successful upgrade from a dual chamber pacemaker system to a multichamber (biventricular) ICD system as described with [facility] equipment. 2. Successful AV junction ablation as described RECOMMENDATIONS: GDMT for cardiomyopathy and CHF Chivo Moreland MD Marketing Researcher Clinical Cardiac Regulatory Compliance Manager Estimated Blood Loss There was minimal blood loss during procedure. Procedure Details OPERATIVE PROCEDURE: UPGRADE FROM DUAL CHAMBER PACEMAKER SYSTEM TO BIVENTRICULAR ICD SYSTEM AND AV JUNCTION ABLATION Date of procedure: 03/11/2025 Cardiac Regulatory Compliance Manager: Chivo Moreland MD Indication for procedure: Cardiomyopathy; [...] wire technique through the sheath, a 7 Pashto and a 9 Fr peel-away sheaths were [...] procedure well. Multi-chamber ICD generator: [facility] Brule HF The right atrial lead was implanted on 12/14/2021 The right ventricular defibrillator lead is [facility] Durata 7120, 65 cm. The left ventricular [...] for cardiomyopathy and CHF Chivo Moreland MD Marketing Researcher Clinical Cardiac Regulatory Compliance Manager Adrienne Mullen TEMPLATE CHECKER CUP EP ORDERABLES Final Re sult [facility] HEART AND VASCULAR CLIA #[id number] [address] [facility] [address] [place] [address] * PROTIME-INR (03/11/2025 4:16 AM CDT) PROTIME 13.1 12.7 - 15.1 Seconds 03/11/2025 5:30 AM CDT [facility] LABORATORY SERVICES [facility] INR 1.0 0.9 - 1.1 03/11/2025 5:30 AM CDT [facility] LABORATORY [facility] Blood Venipuncture / Unknown 03/11/2025 4:16 AM CDT 03/11/2025 5:04 AM CDT Narrative [facility] LABORATORY SERVICES - [facility] - 03/11/2025 5:30 AM CDT INR Therapeutic [...] ranges have not been established. Adrienne Mullen TEMPLATE CHECKER HEMATOLOGY ORDERABLES Maryanne l Result Performing Organization Address City/[facility]/ZIP Co de Phone Number [facility]# [id number] [address] [place] [address] * MAGNESIUM LEVEL (03/09/2025 4:18 PM CDT) Pathologist [facility] MAGNESIUM 2.1 1.6 - 2.4 mg/dL 03/09/2025 5:19 PM CDT [facility] LABORATORY [facility] Blood Venipuncture / Unknown 03/09/2025 4:18 PM CDT 03/09/2025 4:29 PM CDT Margaret Crawford MD CHEMISTRY ORDERABLES Final Resul t Performing Organization Address [facility]/ZIP Co de Phone Number [facility] InExchange [facility]# [id number] [address] [place] [address] * (ABNORMAL) HEMOGLOBIN A1C (03/09/2025 4:18 PM CDT) HEMOGLOBIN A1C 9.4(H) <5.7 % 03/09/2025 10:32 PM CDT [facility] LABORATORY [facility] EST. AVG GLUCOSE, A1C 223 mg/dL 03/09/2025 10:32 PM CDT [facility] LABORATORY [facility] Blood Venipuncture / Unknown 03/09/2025 4:18 PM CDT 03/09/2025 4:29 PM CDT Narrative [facility] LABORATORY [facility] - 03/09/2025 10:32 PM CDT HGB A1C INTERPRETATION NORMAL: <5.7% PRE-DIABETES: 5.7 - 6.4% DIABETES: 6.5% OR GREATER Natacha L Caleb FIELD MECHANIC CHEMISTRY ORDERABLES Final Result [facility] LABORATORY SERVICES - [facility]# [id number] [address] [place] [address] * [place] PROGRAM EVAL IMPLANTABLE IN PERSN DUAL LD PACER (03/09/2025 3:39 PM CDT) 03/09/2025 3:39 PM CDT Narrative INTERFACE SYSTEM - 03/09/2025 3:46 PM CDT SJM Pacemaker interrogation: LW add on - RVR Appropriate dual chamber device function. 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 Pt reporting to ED following OV Per epic, pt takes metoprolol, plavix, amiodarone, eliquis Scheduled for remote in 3 months Procedure Note Provider, Historical - 03/09/2025 SJM Pacemaker interrogation: LW add on - RVR Appropriate dual chamber device function. 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 Pt reporting to ED following OV Per epic, pt takes metoprolol, plavix, amiodarone, eliquis Scheduled for remote in 3 months Tani Patle MD CARDIAC SERVICES ORDERABLES Ed ited Result [...] INTERFACE SYSTEM - 01/31/2025 3:49 [place] [id number] [email or web address] Transthoracic Echocardiogram (Report amended ) Patient: Kameron Man Study ID: ECHO ZEYAD Hernandez Gender: M : 1945 Age: 79 Race: CAU Height 180.3cm Study Date: 01/31/2025 Weight: 118.4kg Access. #: [id number] BP: *Referring Physician:* Dominic Young MD [facility] Dominic YoungOrdering Physician:* Cuauhtemoc Saez shaker screen operator: Nurse: STUDY CONCLUSIONS: SUMMARY: - Left ventricle: [...] Study time: 01:59 PM. Amended Eusebio Bashir [id number] Procedure Note Eusebio Bashir MD - 01/31/2025 [place] [id number] [email or web address] Transthoracic Echocardiogram (Report amended ) Patient: Kameron Man Study ID: ECHO LIMITED W D Gender: M : 1945 Age: 79 Race: [facility] Height 180.3cm Study Date: 01/31/2025 Weight: 118.4kg Access. #: [id number] BP: *Referring Physician:* Dominic Young MD [facility] Dominic YoungOrdering Physician:* Cuauhtemoc Saez shaker screen operator: Nurse: STUDY CONCLUSIONS: SUMMARY: - Left ventricle: [...] Study time: 01:59 PM. Jett Oglesbyadrián Eusebio [id number]:39 Cuauhtemoc Saez [facility] ORDERABLES Edited Result - Final INTERFACE SYSTEM Refer to clinic/hospital department * LEFT HEART CATH (01/31/2025 11:50 AM CDT) Narrative [facility] HEART AND VASCULAR [facility] - 02/01/2025 7:32 AM CDT Diagnostic Dominance: [...] band care. 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 Coronary Findings Diagnostic Dominance: Right Left [...] Young MD CUP CATH ORDERABLES Final Result [facility] HEART AND VASCULAR [facility]# [id number] [address] [facility] [facility] [address] [place] [address] * (ABNORMAL) LIPID PANEL (05/21/2022 2:46 PM CDT) CHOLESTEROL 153 <200 mg/dL [facility] HDL 48 > OR = 40 mg/dL [facility] TRIGLYCERIDE 266(H) <150 mg/dL [facility] Comment: If a non-fasting specimen [...] LDL-C. Girma YING et al. GINA. 2013;310(19): 8607-3662 (http://education.[employer]/faq/AID721) CHOL/HDL RATIO 3.2 <5.0 (calc) [facility] TOTAL NON-HDL CHOL(LDL+VLDL) 105 <130 mg/dL (calc) [facility] Comment: For patients with diabetes plus 1 major ASCVD risk factor, treating to a non-HDL-C goal of <100 mg/dL (LDL-C of <70 mg/dL) is considered a therapeutic option. Test Performed at: [facility] [address] [place] [address] [facility] Blood 05/21/2022 2:46 PM CDT 05/21/2022 2:46 PM CDT Dominic Young MD CHEMISTRY ORDERABLES Final Resul t [facility] [phone] [facility] [address] [place] [address] * POC OCCULT BLOOD 1 CARD (01/21/2021 2:16 PM DELINEATOR) OCCULT BLOOD 1 CARD POC Negative Negative 01/21/2021 2:16 PM DELINEATOR [facility] MORGUE LIBRARIAN NAME POC JAZZMINE SHERMAN 01/21/2021 2:16 PM DELINEATOR [facility] Stool STOOL SPECIMEN / Unknown 01/21/2021 2:16 PM DELINEATOR 01/22/2021 10:40 AM DELINEATOR Master Villegas MD POINT OF CARE TESTING Final Re sult [facility] CLIA# [id number] [address] [place] [address] from Last 3 Months or Most Recently Relevant to Health Maintenance Insurance MEDICARE PART A AND B BCBS SUPP RX [employer] Medicare Part D RX [employer] PL[employer] (INTERNAL) [facility] Plans RX EMDEON Commercial Advance Directives For more information, please contact: [phone] Documents on File Type Date Recorded Patient Metal Cans Supervisor Expl anation Advance Directive POA 02/07/2021 9:09 [...] 9:14 AM 01/31/2025 7:04 PM Care Teams Shrimping Boat Captain Relationship Specialty Start Date End Date Eric Pretty MD [address] [place] [id number] PCP - General Internal Medicine 11/24/19
--- OUTSIDE RECORDS SUMMARY | 2025-05-03 15:00 | XMS_ITS | Encounter Summary ---
Author Organization [facility] Address [address] [address] Care Team Providers Care Oil Recovery Unit Operator Name Role Phone Jarvis Harding Primary Care Provider [phone] Jarvis Harding Primary Care Provider [phone] Kindra Fernandez MD Primary Care Provider Eric Pretty MD Primary Care Provider [phone] Kale MONTANA MD, aMster Hunt Unavailable [phone] Dominic Young MD Unavailable [phone] Carlos Hernandez MD Unavailable [phone] Encounter Details Date Type Department Care Team (Late st Contact Info) Description 11/07/2016 Orders Only [facility] ProviderChuck MD [address] [place] [address] Social History Tobacco Use Types Packs/Day Years Used Date Smoking Tobacco: Former Alcohol Use Standard Drinks/Week Comments Yes 0 (1 standard drink = 0.6 oz pur e alcohol) Sex and Gender Information Value Date Recorded Sex Assigned at Not on file 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 Gender Identity Not on file Sexual Orientation [...] on filedocumented in this encounter Care Teams Oil Recovery Unit Operator Relationship Specialty Start Date End Date Jarvis Harding [address] [place] [address] PCP - General 02/14/17 08/27/17 Jarvis Harding [address] [place] [address] PCP - General 07/13/14 02/13/17 Kindra Fernandez MD [address] [place] [address] PCP - General Family Practice 08/28/17 01/27/18 Eric Pretty MD [address] [place] [address] PCP - General Internal Medicine 01/28/18 Master Henley III, MD [address] [place] [address] Consulting Physician Rheumatology 01/28/18 01/26/24 Dominic Young MD [address] [place] [address] Consulting Physician Cardiology 01/04/20 Carlos Hernandez MD [address] [place] [address] Consulting Physician Rheumatology 01/27/24 documented as of this encounter
--- OUTSIDE RECORDS SUMMARY | 2025-05-03 15:00 | XMS_ITS | Encounter Summary ---
Author Organization [facility] Address [address] [facility] [address] [place] [address] Care Team Providers Care Pool Lifeguard Name Role Phone Jarvis Harding Primary Care Provider Jarvis Harding Primary Care Provider Jarvis Harding Primary Care Provider Jarvis Harding Primary Care Provider Jarvis Harding Primary Care Provider Jarvis Harding Primary Care Provider Kindra Fernandez MD Primary Care Provider Eric Pretty MD Primary Care Provider [phone] Kale MONTANA MD, John J. 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 Gender Identity Not on file Sexual [...] on filedocumented in this encounter Care Teams Pool Lifeguard Relationship Specialty Start Date End Date Jarvis Harding [address] [place] [address] PCP - General 02/14/17 08/27/17 Jarvis Harding [address] [place] [address] PCP - General 07/13/14 02/13/17 Jarvis Harding [address] [place] [address] PCP - General 03/03/12 07/12/14 Jarvis Harding [address] [place] [address] PCP - General 02/18/12 03/02/12 Jarvis Harding [address] [place] [address] PCP - General 02/11/12 02/17/12 Jarvis Harding [address] [place] [address] PCP - General 07/24/11 02/10/12 Kindra Fernandez MD [address] [place] [address] PCP - General Family Practice 08/28/17 01/27/18 Eric Pretty MD [address] [place] [address] PCP - General Internal Medicine 01/28/18 Master Henley III, MD [address] [facility] [address] [place] [address] Consulting Physician Rheumatology 01/28/18 01/26/24 Dominic Young MD [address] [facility] [address] [place] [address] Consulting Physician Cardiology 01/04/20 Carlos Hernandez MD [address] [facility] [place] [address] Consulting Physician Rheumatology 01/27/24 documented as of this encounter
--- OUTSIDE RECORDS SUMMARY | 2025-05-03 15:00 | XMS_ITS | Encounter Summary ---
Author Organization [facility] Address [address] [place] [address] Phone Care Team Providers Care Pharmacy Technician Trainee Name Role Phone Eric Pretty MD Primary Care Provider [phone] Kale MONTANA MD, Master Hunt Unavailable Dominic Young MD Unavailable [phone] Carlos Hernandez MD Unavailable [phone] Reason for Referral * Diagnostic Imaging (Routine) - Closed Specialty Diagnoses / Procedures Referred By Contac t Referred To Contact Radiology Diagnoses Arthrodesis status Foraminal stenosis of lumbar region Lumbar radiculopathy Procedures CT Lumbar Spine WO Contrast Denise Walker CNS Phone: tel: fax: [facility] [address] Referral ID Status Reason Start Date Expiration Date Visits Re quested Visits Authorized [id number] Closed 03/08/2019 09/16/2020 1 1 * Consultation (Routine) - Closed Specialty Diagnoses / Procedures Referred By Contac t Referred To Contact Pain Management Diagnoses Arthrodesis status Foraminal stenosis of lumbar region Lumbar radiculopathy Denise Walker CNS Phone: tel: fax: Kia Kwan MD [address] [place] [address] Phone: tel: fax: Referral ID Status Reason Start Date Expiration Date V isits Requested Visits Authorized [id number] Closed Specialty Services Required 03/08/2019 09/16/2020 1 1 Scheduling Instructions Please schedule for left L4-L5 transforaminal injection.i Question Answer Please select the performing region: [facility] [157] To provider: KIA KWAN [[id number]] # of visits: 1 Encounter Details Date Type Department Care Team (Late st Contact Info) Description 03/08/2019 Orders Only [facility] [address] [facility] 1[address] [place] [id number] Denise Walker CNS [address] [facility] [address] [place] [address] Arthrodesis status (Primary Dx); Foraminal stenosis of [...] on file Legal Sex Male 3:50 PM BUSINESS MANAGEMENT INTERN Gender Identity Not on file Sexual Orientation [...] signed by: Dwayne Mann M.D. Denise Walker [facility] IMG CT PROCEDURES Final Res ult documented in this encounter Visit Diagnoses Diagnosis Arthrodesis status- Primary Foraminal stenosis of lumbar region Lumbar radiculopathy Thoracic or lumbosacral neuritis or radiculitis, unspecified Arthrodesis status Foraminal stenosis of lumbar region Lumbar radiculopathy Thoracic or lumbosacral neuritis or radiculitis, unspecified documented in this encounter Care Teams Pharmacy Technician Trainee Relationship Specialty Start Date End Date Eric Pretty MD [address] [place] [address] PCP - General Internal Medicine 01/28/18 Master Henley III, MD [address] [place] [address] Consulting Physician Rheumatology 01/28/18 01/26/24 Dominic Young MD [address] [facility] [address] [place] [address] Consulting Physician Cardiology 01/04/20 Carlos Hernandez MD [address] [place] [address] Consulting Physician Rheumatology 01/27/24 documented as of this encounter
--- OUTSIDE RECORDS SUMMARY | 2025-05-03 15:00 | XMS_ITS | Encounter Summary ---
Author Organization [facility] Address [address] [address] Care Team Providers Care Billposting Supervisor Name Role Phone Jarvis Harding Primary Care Provider [phone] Jarvis Harding Primary Care Provider [phone] Kindra Fernandez MD Primary Care Provider Eric Pretty MD Primary Care Provider [phone] Kale MONTANA MD, Master Hunt Unavailable [phone] Dominic Young MD Unavailable [phone] Carlos Hernandez MD Unavailable [phone] Encounter Details Date Type Department Care Team (Late st Contact Info) Description 12/17/2016 Orders Only [facility] ProviderChuck MD [address] [place] [id number] Social History Tobacco Use Types Packs/Day Years Used Date Smoking Tobacco: Former Alcohol Use Standard Drinks/Week Comments Yes 0 (1 standard drink = 0.6 oz pur e alcohol) Sex and Gender Information Value Date Recorded Sex Assigned at Not on file 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 Gender Identity Not on file Sexual Orientation [...] on filedocumented in this encounter Care Teams Billposting Supervisor Relationship Specialty Start Date End Date Jarvis Harding [address] [place] [address] PCP - General 02/14/17 08/27/17 Jarvis Hrading [address] [place] [place] [address] PCP - General 07/13/14 02/13/17 Kindra Fernandez MD [address] [place] [place] [address] PCP - General Family Practice 08/28/17 01/27/18 Eric Pretty MD [address] [place] [address] PCP - General Internal Medicine 01/28/18 Master Henley III, MD [address] [place] [address] Consulting Physician Rheumatology 01/28/18 01/26/24 Dominic Young MD [address] [place] [id number] Consulting Physician Cardiology 01/04/20 Carlos Hernandez MD [address] [place] [address] Consulting Physician Rheumatology 01/27/24 documented as of this encounter
--- OUTSIDE RECORDS SUMMARY | 2025-05-03 15:00 | XMS_ITS | Encounter Summary ---
Author Organization [facility] Address [address] [place] [address] Care Team Providers Care Neurology Director Name Role Phone Eric Pretty MD Primary Care Provider [phone] Kale MONTANA MD, Master Hunt Unavailable Dominic Young MD Unavailable [phone] Carlos Hernandez MD Unavailable [phone] Encounter Details Date Type Department Care Team (Late st Contact Info) Description 04/14/2019 Telephone [facility] at [facility] [address] [place] [address] Kia Kwan MD [address] [facility] [address] [place] [address] Social History Tobacco Use Types [...] on file 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 documented as of this encounter Visit Diagnoses Not on filedocumented in this encounter Care Teams Neurology Director Relationship Specialty Start Date End Date Eric Pretty MD [address] [place] [address] PCP - General Internal Medicine 01/28/18 Master Henley III, MD [address] [place] [address] Consulting Physician Rheumatology 01/28/18 01/26/24 Dominic Young MD [address] [place] [address] Consulting Physician Cardiology 01/04/20 Carlos Hernandez MD [address] [place] [address] Consulting Physician Rheumatology 01/27/24 documented as of this encounter
--- OUTSIDE RECORDS SUMMARY | 2025-05-03 15:00 | XMS_ITS | Continuity of Care Document ---
Author Organization [facility] Address [address] [place] [address] Phone Care Team Providers Care Hydrogen Plant Operator Name Role Phone Wally Ray MD Unavailable [...] OFFICE CONSULTATION POSTOP FOLLOW-UP VISIT OFFICE/OUTPATIENT VISIT [facility] Advance Directives Directive Yes / No Effective Date File Name No Information Encounters Encounter Description Practice Location Reason(s) For Visit Diagnoses Date Provider Providers Copied on Encounter OFFICE CONSULTATION [facility], [address] [facility] [address], [address], [place] tel:[phone] [facility] [place] Biceps tendon tear [address] Flor Lo. [address], [place], [place], [id number] . tel: [phone] Referring Provider: Master Melendez, [address], [place], [address] . tel:[phone] [facility], [address], [place], [address], tel:[phone] [facility] Onychia of finger [address] Mike Pickens. [address] [place], [place], [id number] . tel: [phone] OFFICE/OUTPATI ENT VISIT [facility], [address] [facility] [address] [place], [address], tel:[phone] [facility] [address]. [address] [place], [place], [id number] . tel: [phone] Family History Family Member Type Diagnosis Age At Onset No Information Payers Payer name Insurance type Covered republican ID Authoriza tion(s) No Information Social History [...]
[2025-05-03 15:58] LABS: Lactic Acid Reflex 1.4 mmol/L (0.7-2.0); Magnesium 2.1 mg/dL (1.6-2.3)
[2025-05-03 16:02] LABS: INR 1.1; Prothrombin Time 14.8 Seconds (11.1-14.7)
[2025-05-03 16:03] LABS: Partial Thromboplastin Time 32.4 Seconds (22.3-36.8)
[2025-05-03 16:11] LABS: NT Pro B Type Natriuretic Pept 1540 pg/mL (19.9-100); Troponin I < 0.012 ng/mL (0.000-0.034)
[2025-05-03 16:25] LABS: Influenza A QL RT-PCR Negative (Negative); Influenza B QL RT-PCR Negative (Negative); RSV RNA, RT-PCR Negative (Negative); SARS-CoV-2 RNA PCR Negative (Negative)
--- NOTE | 2025-05-03 16:31 | ED.GENADULT ---
HPI - General Adult General Chief complaint: Weakness Stated complaint: SOB, N/V Time Seen by Provider: 05/03/25 14:00 History of Present Illness HPI narrative: Patient 79-year-old gentleman who presents emergency department with chief complaint of generalized weakness nausea vomiting patient was seen by his primary care provider had a chest x-ray that showed possible pneumonia the patient states he has had no shortness of breath reports that he does feels overall weak and very nauseated. Patient also denies chest pain Related Data Home Medications ?Medication ?Instructions ?Recorded ?Confirmed ?Last Taken ?Type clopidogrel 75 mg tablet 75 mg PO DAILY 06/06/22 05/03/25 12/21/22 History metoprolol succinate 25 mg 25 mg PO DAILY 04/03/23 05/03/25 Unknown History tablet,extended release 24 hr ferrous sulfate 325 mg (65 mg 325 mg PO BID 10/23/23 05/03/25 Unknown History iron) tablet cholecalciferol (vitamin D3) 50 4,000 unit PO DAILY 10/30/23 05/03/25 Unknown History mcg (2,000 unit) tablet (Vitamin D3) folic acid 1 mg tablet 1 mg PO DAILY 01/06/24 05/03/25 Unknown History methotrexate sodium 2.5 mg tablet See Rx Instructions PO .COMPLEX 01/06/24 05/03/25 Unknown History prednisone 5 mg tablet 5 mg PO DAILY 11/16/24 05/03/25 Unknown History Allergies Allergy/AdvReac Type Severity Reaction Status Date / Time fentanyl Allergy Intermediate Itching Verified 05/03/25 12:56 tramadol Allergy Intermediate Itching Verified 05/03/25 12:56 Review of Systems Review of Systems: A 10 system review of systems was completed on the patient and is negative except for what is stated in the HPI. Nursing and ancillary documentation was reviewed. [facility] Past Medical History Medical History Pneumonia Nasal drainage Groin rash Cellulitis DVT (deep venous thrombosis) Left groin mass Sinus drainage Tinea Cough URI (upper respiratory infection) Inguinal hernia Head injury Hx of colonic polyps Colon cancer screening Muscle weakness (~11/2022) Sick sinus syndrome Fall Mastodynia of left breast Left anterior shoulder pain Costochondritis Swelling of joint, knee, left Swelling of left lower extremity Physical debility Hospital discharge follow-up A-fib Rupture of left Achilles tendon SOB (shortness of breath) Tear of left rotator cuff Type 2 diabetes mellitus with diabetic polyneuropathy, 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, with long-term current use of insulin Unspecified place in other non-institutional residence as the place of occurrence of the external cause Neck pain Changing skin lesion Vision changes Chronic low back pain Left knee pain Claustrophobia Diarrhea Post-phlebitic syndrome History of myocardial infarction History of blood clots Toe pain, right Bruise of toe Toe infection Swelling of left hand Pilonidal cyst Obstructive sleep apnea Intolerant to CPAP Chronic orthostatic hypotension Essential tremor BMI 35.0-35.9,adult Back pain with history of spinal surgery ASHD (arteriosclerotic heart disease) Tobacco abuse Trauma Non-healing skin lesion C. 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 Dyslipidemia Benign prostatic hyperplasia Colon polyps Coronary artery disease With history of stent to the mid LAD in November 2015. Cardiac catheterization in May 2017 showed a patent LAD stent and 90% ostial stenosis in a 3rd diagonal, which was a small vessel and jailed by previous stent. No other high-grade lesions were noted. Reportedly, he had a stent in November 2019 done at [facility] in [place]. Insulin dependent type 2 diabetes mellitus With diabetic peripheral neuropathy. Hemoglobin A1c was 8.3% in March 2021 Depression with anxiety Prostate CA Status post external radiation. GERD (gastroesophageal reflux disease) Rheumatoid arthritis Surgical History Surgical History Pacemaker placed 12/14/2021 History of removal of pigmented skin lesion Status post cataract extraction of both eyes with insertion of intraocular lens S/P tooth extraction Status post lumbar spine operation X3 most recently December 2020 Status post tonsillectomy Status post inguinal hernia repair Status post cholecystectomy Status post vasectomy Hx of heart artery stent X3 Family History Family History Father Asthma Family history of cardiovascular disease Mother Family history of cardiovascular disease Family history of arthritis Family history of Alzheimer's disease Family history of malignant neoplasm of kidney Other Diabetes mellitus Hypertension Social History Social History Social History: He lives in [place] with his of 55 years. They have 1 son. He quit smoking cigarettes in February of 1989. Over the last several years he started to smoke a pipe, typically 5 to 6 times per day. He drinks perhaps 1 alcoholic beverage a month. No drug use. He designates his , Monika, as his surrogate decision maker. He is listed as a full code. Smoking packs per day: 0.5 Smoking cigarettes per day: 10.0 Years smoked: 30 Smoking pack-years: 15.00 Smoking status: Former smoker (smokes cigars) Tobacco type: cigarettes and pipe Additional smoking assessment comments: CURRENTLY SMOKES A PIPE Alcohol intake: current Drinks per week: 1 Alcohol use details: occasional beer while cooking Substance use: never Substance use type: does not use Lack of Transportation: No Lack of Food: Never True Current Housing: I Have Housing Concerned About Future Housing: No Difficulty Paying Gas/Electric Bills: No Difficulty Paying for Meds: No Currently Unemployed: No Education: High School Diploma/GED Difficulty w/ Childcare or Family Care: No Living arrangements: with family Additional living arrangements comments: patient lives with Occupation/Education: retired Gender identity (if verbalized by the patient): Male Sexual Orientation (if Verbalized by the Patient): Straight or Heterosexual Spiritual care concerns: No Agree to blood products: Yes Exam Narrative: GENERAL: Well-appearing, well-nourished, and in no acute distress. HEAD: Normocephalic, atraumatic. EYES: PERRLA and EOMI. ENT: Nares clear, no rhinorrhea or epistaxis. Mucous membranes moist. NECK: Supple. CHEST: Clear to auscultation. No respiratory distress. HEART: Regular rate and rhythm. No murmur heard. Normal peripheral pulses. ABDOMEN: Soft, mild diffuse tenderness, nondistended, normal active bowel sounds. EXTREMITIES: Normal range of motion. No edema. SKIN: Warm, dry, no rash. NEURO: No focal deficits. Alert and oriented x3. PSYCH: Normal mood and affect. Course Vital Signs Vital signs: Vital Signs Temperature 36.4 C 05/03/25 13:39 Pulse Rate 80 05/03/25 13:39 Respiratory Rate 12 05/03/25 13:39 Blood Pressure 144/79 H 05/03/25 13:39 Pulse Oximetry 96 05/03/25 13:39 Oxygen Delivery Room Air 05/03/25 13:39 Temperature 36.4 C 05/03/25 13:39 Pulse Rate 82 05/03/25 16:28 Respiratory Rate 16 05/03/25 16:28 Blood Pressure 155/83 H 05/03/25 16:28 Pulse Oximetry 99 05/03/25 16:28 Oxygen Delivery Room Air 05/03/25 15:32 Medical Decision Making MDM Narrative Medical decision making narrative: Differential diagnosis includes pneumonia, pulmonary embolism, intra-abdominal infection, Laboratory studies were obtained on the patient showed a white count of 6.0 hemoglobin was 13.3 electrolytes are within normal limits glucose was 280 patient had a and a gap of 10 BUN of 15 and a creatinine is 0.86 liver enzymes were normal troponin was less than 0.012 BNP was 1 540 urinalysis shows 1+ ketones 3+ glucose negative leukocyte esterase negative nitrate COVID flu and RSV are negative CTA chest with an abdomen pelvis scan showed no acute pulmonary embolism or acute cardiopulmonary disease ectatic aorta measuring 4 cm 2.4 cm intermediate attenuation in the left kidney Vital Signs Vital Signs: Vital Signs Temperature 36.4 C 05/03/25 13:39 Pulse Rate 80 05/03/25 13:39 Respiratory Rate 12 05/03/25 13:39 Blood Pressure 144/79 H 05/03/25 13:39 Pulse Oximetry 96 05/03/25 13:39 Oxygen Delivery Room Air 05/03/25 13:39 Temperature 36.4 C 05/03/25 13:39 Pulse Rate 82 05/03/25 16:28 Respiratory Rate 16 05/03/25 16:28 Blood Pressure 155/83 H 05/03/25 16:28 Pulse Oximetry 99 05/03/25 16:28 Oxygen Delivery Room Air 05/03/25 15:32 Lab Data 05/03/25 13:52 05/03/25 13:52 Labs: Lab Results 05/03/25 05/03/25 05/03/25 Range/Units 13:52 15:29 15:41 WBC 6.0 (4.5-10.0) K/mm3 RBC 4.42 L (4.6-6.20) M/mm3 Hgb 13.3 L (14.0-18.0) g/dL Hct 41.2 L (42.0-52.0) % MCV 93.2 (80-100) fl MCH 30.1 (26-34) pg MCHC 32.3 (32-36) g/dl RDW 17.3 H (11.5-14.5) % Plt Count 220 (150-375) k/mm3 MPV 9.6 (7.4-10.4) fl Immature Gran % (Auto) 0.5 (0-0.5) % Neut % (Auto) 81.1 H (45.5-73.1) % Lymph % (Auto) 9.9 L (18.3-44.2) % [place] % (Auto) 7.0 (2.6-8.5) % Eos % (Auto) 1.0 (0-4.4) % Baso % (Auto) 0.5 (0.2-1.2) % Lymph # (Auto) 0.59 L (0.9-3.2) K/mm3 [place] # (Auto) 0.4 (0.1-0.6) K/mm3 Eos # (Auto) 0.1 (0-0.3) K/mm3 Baso # (Auto) 0.0 (0.0-0.1) K/mm3 Abs Immat Gran (auto) 0.03 (0.00-0.031) K/mm3 Absolute Neuts (auto) 4.8 (1.3-6.7) K/mm3 Absolute Nucleated RBC 0.000 (0.0-0.012) K/mm3 Nucleated RBC % 0.0 (0.0-0.2) % PT 14.8 H (11.1-14.7) Seconds INR 1.1 APTT 32.4 (22.3-36.8) Seconds Sodium 135 L (137-145) mmol/L Potassium 4.2 (3.4-5.0) mmol/L Chloride 103 (98-107) mmol/L Carbon Dioxide 22 (22-30) mmol/L Anion Gap 10 (4-12) mmol/L BUN 15 D (9-20) mg/dL Creatinine 0.86 (0.7-1.3) mg/dL Estim Creat Clear Calc 82 ml/min Estimated GFR > 60 (59 - ) Glucose 280 H (65-110) mg/dL Lactic Acid 1.4 (0.7-2.0) mmol/L Calcium 8.8 (8.4-10.2) mg/dL Magnesium 2.1 (1.6-2.3) mg/dL Total Bilirubin 1.0 (0.2-1.3) mg/dL AST 27 (17-59) U/L ALT 22 (6-50) U/L Alkaline Phosphatase 83 (38-126) U/L Troponin I < 0.012 (0.000-0.034) ng/mL NT-Pro-B Natriuret Pep 1540 H (19.9-100) pg/mL Total Protein 6.5 (6.3-8.2) g/dL Albumin 3.9 (3.5-5.1) g/dL Urine Color Yellow (Yellow) Urine Appearance Clear (Clear) Urine pH 5.5 (5.0-9.0) Ur Specific [place] > 1.045 H (1.001-1.035) Urine Protein Negative (Negative) mg/dL Urine Glucose (UA) 3+ H (Negative) mg/dL Urine Ketones 1+ H (Negative) mg/dL Ur Blood (Man) Negative (Negative) Urine Nitrate Negative (Negative) Urine Bilirubin Negative (Negative) Urine Urobilinogen 0.2 (<2.0) mg/dL Leukocyte Esterase Rfl Negative (Negative) BETH/UL Influenza A (RT-PCR) Negative (Negative) Influenza B (RT-PCR) Negative (Negative) RSV (RT-PCR) Negative (Negative) SARS-CoV-2 RNA (RT-PCR) Negative (Negative) Discharge Plan Discharge Clinical Impression: Generalized weakness, Nausea and vomiting Patient Disposition: Still a Patient Condition: Stable Patient Language: Angolan Prescriptions: No Action metoprolol succinate 25 mg tablet extended release 24 hr 25 mg PO DAILY Rx Instructions: 1/2 tab twice a day cholecalciferol (vitamin D3) [Vitamin D3] 50 mcg (2,000 unit) tablet 4,000 unit PO DAILY methotrexate sodium 2.5 mg tablet See Rx Instructions PO .COMPLEX Rx Instructions: 6 tabs orally once a week on fridays; folic acid 1 mg tablet 1 mg PO DAILY Humulin R U-500 (Conc) Kwikpen 500 unit/mL (3 mL) insulin pen See Rx Instructions subcut DAILY MDD 145 90 Days Qty: 27 1RF Rx Instructions: 100 units before breakfast, 35 units before dinner clopidogrel 75 mg tablet 75 mg PO DAILY (DME) Home Nebulizer Machine See Rx Instructions .Route .MEDSUPPLY Qty: 1 0RF Rx Instructions: Pt to use with Albuterol 0.63% vials for SOB/ Cough and wheezing. Gvoke HypoPen 2-Pack 1 mg/0.2 mL auto-injector 1 mg subcut ONCE Qty: 0.4 4RF Rx Instructions: may repeat once after 15 minutes if no response (DME) pen needle, diabetic [BD Ultra-Fine Gabrielle Pen Needle] 32 gauge x 5/32 needle See Rx Instructions .Route Qty: 300 1RF Rx Instructions: As directed prednisone 5 mg tablet 5 mg PO DAILY ferrous sulfate 325 mg (65 mg iron) tablet 325 mg PO BID Jardiance 25 mg tablet 25 mg PO DAILY Qty: 90 1RF Rx Instructions: Please D/C the Jardiance 10. Thank you sertraline 100 mg tablet See Rx Instructions .ROUTE .COMPLEX Qty: 90 0RF Dose Instruction: TAKE 1 TABLET BY MOUTH ONCE DAILY IN THE MORNING Rx Instructions: TAKE 1 TABLET BY MOUTH ONCE DAILY IN THE MORNING Eliquis 5 mg tablet 5 mg PO Q12HR Qty: 60 0RF pantoprazole 40 mg tablet,delayed release (DR/EC) See Rx Instructions .ROUTE .COMPLEX Qty: 90 1RF Dose Instruction: TAKE 1 TABLET BY MOUTH ONCE DAILY IN THE MORNING Rx Instructions: TAKE 1 TABLET BY MOUTH ONCE DAILY IN THE MORNING hydrocodone-acetaminophen 5-325 mg tablet 1 tablet PO Q8H PRN (Reason: pain) Qty: 20 0RF atorvastatin 40 mg tablet See Rx Instructions .ROUTE .COMPLEX Qty: 90 1RF Dose Instruction: Take 1 tablet by mouth once daily Rx Instructions: Take 1 tablet by mouth once daily gabapentin 300 mg capsule See Rx Instructions .ROUTE .COMPLEX Qty: 810 1RF Dose Instruction: TAKE 3 CAPSULES BY MOUTH THREE TIMES DAILY Rx Instructions: TAKE 3 CAPSULES BY MOUTH THREE TIMES DAILY Follow-up/Referrals: Eric Pretty MD [Primary Care Provider] -
[2025-05-03 16:33] LABS: Add Urine Microscopic? NO; Appearance Urine Clear (Clear); Bilirubin Urine Negative (Negative); Blood Urine Negative (Negative); Color Urine Yellow (Yellow); Glucose Urine UA 3+ mg/dL (Negative); Ketones Urine 1+ mg/dL (Negative); Leukocyte Esterase Ur Negative LEU/UL (Negative); Nitrate Urine Negative (Negative); Protein Urine Negative (Negative); Specific Grav Ur > 1.045 (1.001-1.035); Urobilinogen Urine 0.2 mg/dL (<2.0); pH Urine 5.5 (5.0-9.0)
[2025-05-03] MEDS: ONDANSETRON INJ 4 MG/2 ML VIAL IV PUSH ×2 (17:02→17:50)
[2025-05-03] MEDS: SODIUM CHLORIDE 0.9% IV 1,000 ML 999 ML IV CONT (17:03)
--- NOTE | 2025-05-03 20:15 | ADMGEN ---
This patient, Kameron Man, was admitted to 3 [facility] Surg Room 305-02. Patient/family oriented to hospital policies and general routines including ID bracelet, bed and alarms, visiting hours, pain management, procedures, bathroom and other care routines, personal items, smoking policy, room service/diet, and visiting hours. Information on how to activate the Rapid Response Team has been discussed. Patient/Family are encouraged to report perceived risks to care and to ask questions if they do not understand what they are told or what they should do.
--- NOTE | 2025-05-03 20:38 | P.HP_ITS ---
H&P: HPI History of Present Illness Date/Time: 05/03/25 20:38 Chief Complaint: Nausea/vomiting with progressive neurologic dysfunction worsening over past 3 days Narrative: This patient, Mr. Kameron Man, has been unwell for approximately two and a half days. During this period, he has not been eating, has been vomiting, and has not taken his medications. He has been fidgety, moving from one bed to another, and is not responding or behaving as he normally does. His reports that he is typically lame (uses motorized scooter for past 3 years), but over the last few days, he has been less responsive and not himself. There has been a notable change in his speech and ability to communicate, which appeared to worsen today, particularly after a visit to Dr. Pretty. He was subsequently sent to the Emergency Room by Dr. Pretty. He has also complained of pain in the left upper abdomen. There is no clear history of similar episodes in the past year. He has a history of heart problems, including a recently placed pacemaker (described as a 'newer thing' that was 'just had... put in'), and takes methotrexate for rheumatoid arthritis. There is no significant alcohol use reported, though his mentions he drinks sometimes. He has a history of sleep apnea but does not use his CPAP mask, with his noting he 'won't wear the mask.' All of HPI information given by patient's due to altered mental status * Most likely diagnosis includes acute encephalopathy or delirium, possibly secondary to infection, metabolic derangement, hydrocephalus or cardiac event (given recent pacemaker and history of heart disease). Other considerations include stroke, medication side effects, or acute exacerbation of underlying chronic illness (e.g., rheumatoid arthritis, heart failure). * Differential diagnoses: Stroke, infection (e.g., sepsis, UTI, pneumonia), metabolic disturbance (electrolyte imbalance, hypoglycemia), medication toxicity, cardiac event (arrhythmia, pacemaker malfunction), acute rhe umatologic flare. Review of Systems Review of Systems: Denied chest pain or trouble breathing, reports left upper abdominal pain and nausea ROS unobtainable: Yes unobtainable due to mental status PMFSH Past Medical History Medical History Pneumonia Nasal drainage Groin rash Cellulitis DVT (deep venous thrombosis) Left groin mass Sinus drainage Tinea Cough URI (upper respiratory infection) Inguinal hernia Head injury Hx of colonic polyps Colon cancer screening Muscle weakness (~11/2022) Sick sinus syndrome Fall Mastodynia of left breast Left anterior shoulder pain Costochondritis Swelling of joint, knee, left Swelling of left lower extremity Physical debility Hospital discharge follow-up A-fib Rupture of left Achilles tendon SOB (shortness of breath) Tear of left rotator cuff Type 2 diabetes mellitus with diabetic polyneuropathy, 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, with long-term current use of insulin Unspecified place in other non-institutional residence as the place of occurrence of the external cause Neck pain Changing skin lesion Vision changes Chronic low back pain Left knee pain Claustrophobia Diarrhea Post-phlebitic syndrome History of myocardial infarction History of blood clots Toe pain, right Bruise of toe Toe infection Swelling of left hand Pilonidal cyst Obstructive sleep apnea Intolerant to CPAP Chronic orthostatic hypotension Essential tremor BMI 35.0-35.9,adult Back pain with history of spinal surgery ASHD (arteriosclerotic heart disease) Tobacco abuse Trauma Non-healing skin lesion C. 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 Dyslipidemia Benign prostatic hyperplasia Colon polyps Coronary artery disease With history of stent to the mid LAD in November 2015. Cardiac catheterization in May 2017 showed a patent LAD stent and 90% ostial stenosis in a 3rd diagonal, which was a small vessel and jailed by previous stent. No other high-grade lesions were noted. Reportedly, he had a stent in November 2019 done at [facility] in [place]. Insulin dependent type 2 diabetes mellitus With diabetic peripheral neuropathy. Hemoglobin A1c was 8.3% in March 2021 Depression with anxiety Prostate CA Status post external radiation. GERD (gastroesophageal reflux disease) Rheumatoid arthritis Surgical History Surgical History Pacemaker placed 12/14/2021 History of removal of pigmented skin lesion Status post cataract extraction of both eyes with insertion of intraocular lens S/P tooth extraction Status post lumbar spine operation X3 most recently December 2020 Status post tonsillectomy Status post inguinal hernia repair Status post cholecystectomy Status post vasectomy Hx of heart artery stent X3 Family History Family History Father Asthma Family history of cardiovascular disease Mother Family history of cardiovascular disease Family history of arthritis Family history of Alzheimer's disease Family history of malignant neoplasm of kidney Other Diabetes mellitus Hypertension Social History Social History Social History: He lives in [place] with his of 55 years. They have 1 son. He quit smoking cigarettes in February of 1989. Over the last several years he started to smoke a pipe, typically 5 to 6 times per day. He drinks perhaps 1 alcoholic beverage a month. No drug use. He designates his , Monika, as his surrogate decision maker. He is listed as a full code. Smoking packs per day: 0.5 Smoking cigarettes per day: 10.0 Years smoked: 30 Smoking pack-years: 15.00 Smoking status: Former smoker Tobacco type: cigarettes and pipe Additional smoking assessment comments: CURRENTLY SMOKES A PIPE Alcohol intake: never Drinks per week: 1 Alcohol use details: occasional beer while cooking Substance use: never Substance use type: does not use Do You Feel Safe in your Home?: Yes Lack of Transportation: No Lack of Food: Never True Current Housing: I Have Housing Concerned About Future Housing: No Difficulty Paying Gas/Electric Bills: No Difficulty Paying for Meds: No Currently Unemployed: No Education: High School Diploma/GED Difficulty w/ Childcare or Family Care: No Living arrangements: with family Additional living arrangements comments: patient lives with Occupation/Education: retired Gender identity (if verbalized by the patient): Male Sexual Orientation (if Verbalized by the Patient): Straight or Heterosexual Spiritual care concerns: No Agree to blood products: Yes Meds Home Medications and Allergies Home Medications ?Medication ?Instructions ?Recorded ?Confirmed ?Type clopidogrel 75 mg tablet 75 mg PO DAILY 06/06/22 05/03/25 History Home Nebulizer Machine #1 device 09/22/23 05/03/25 Rx ferrous sulfate 325 mg (65 mg 325 mg PO BID 10/23/23 05/03/25 History iron) tablet folic acid 1 mg tablet 1 mg PO DAILY 01/06/24 05/03/25 History methotrexate sodium 2.5 mg tablet 2.5 mg PO WEEKLY 01/06/24 05/03/25 History empagliflozin 25 mg tablet 25 mg PO DAILY #90 tabs 04/19/24 05/03/25 Rx (Jardiance) sertraline 100 mg tablet See Rx Instructions .Route 10/25/24 05/03/25 Rx .COMPLEX #90 tabs glucagon 1 mg/0.2 mL subcutaneous 1 mg (0.2 mL) subcut ONCE #0.4 mL 11/04/24 05/03/25 Rx auto-injector (Gvoke HypoPen 2-Pack) pen needle, diabetic 32 gauge x #300 ea 11/04/24 05/03/25 Rx 5/32 (BD Ultra-Fine Gabrielle Pen Needle) apixaban 5 mg tablet (Eliquis) 5 mg PO Q12HR #60 tabs 11/15/24 05/03/25 Rx prednisone 5 mg tablet 5 mg PO DAILY 11/16/24 05/03/25 History pantoprazole 40 mg tablet,delayed See Rx Instructions .Route 12/06/24 05/03/25 Rx release .COMPLEX #90 tabs insulin regular hum U-500 conc 500 See Rx Instructions subcut DAILY 01/19/25 05/03/25 Rx unit/mL(3 mL) subcut pen (Humulin 90 days #27 mL R U-500 (Conc) Insulin Kwikpen) atorvastatin 40 mg tablet See Rx Instructions .Route 03/21/25 05/03/25 Rx .COMPLEX #90 tabs hydrocodone 5 mg-acetaminophen 325 1 tablet PO Q8H PRN pain #20 tabs 03/21/25 05/03/25 Rx mg tablet gabapentin 300 mg capsule See Rx Instructions .Route 04/27/25 05/03/25 Rx .COMPLEX #810 caps Allergies Allergy/AdvReac Type Severity Reaction Status Date / Time fentanyl Allergy Intermediate Itching Verified 05/03/25 12:56 tramadol Allergy Intermediate Itching Verified 05/03/25 12:56 Vital Signs Vital Signs - 24 hr 05/03/25 13:39 05/03/25 13:45 05/03/25 15:27 Temperature 36.4 C Pulse Rate 80 80 80 Respiratory Rate 12 16 Blood Pressure 144/79 H Pulse Oximetry 96 99 Oxygen Delivery Room Air 05/03/25 15:32 05/03/25 16:28 05/03/25 18:39 Temperature 36.7 C Pulse Rate 82 80 Respiratory Rate 16 20 Blood Pressure 155/83 H 136/75 Pulse Oximetry 100 99 100 Oxygen Delivery Room Air Exam Narrative: GENERAL: Very agitated pulling off clothing, barely speaking any words, seems to understand questions but cannot answer, does not follow commands at all times but spontaneous movement of all extremities appears equal in strength and motor function HEAD: Normocephalic, atraumatic. ENT:? Mucous membranes dry. CHEST: Clear to auscultation.? No respiratory distress. HEART: Regular rate and rhythm. ? Strong peripheral pulses. ABDOMEN: Soft, normal bowel sounds, LUQ tender to palpation EXTREMITIES: Normal range of motion. No peripheral edema. SKIN: Warm dry normal color NEURO: Awake, confused, agitated, barely speaking any words, seems to understand questions but cannot answer, does not follow commands at all times but spontaneous movement of all extremities appears equal in strength and motor function. H&P: Results Labs Labs: Short CBC 05/03/25 Range/Units 13:52 WBC 6.0 (4.5-10.0) K/mm3 Hgb 13.3 L (14.0-18.0) g/dL Hct 41.2 L (42.0-52.0) % Plt Count 220 (150-375) k/mm3 BMP 05/03/25 13:52 Sodium 135 L Potassium 4.2 Chloride 103 Carbon Dioxide 22 BUN 15 Creatinine 0.86 Glucose 280 H Calcium 8.8 Cardiac Enzymes 05/03/25 Range/Units 15:41 Troponin I < 0.012 (0.000-0.034) ng/mL Liver Function 05/03/25 Range/Units 13:52 Total Bilirubin 1.0 (0.2-1.3) mg/dL AST 27 (17-59) U/L ALT 22 (6-50) U/L Alkaline Phosphatase 83 (38-126) U/L Albumin 3.9 (3.5-5.1) g/dL Urine 05/03/25 Range/Units 15:29 Urine Color Yellow (Yellow) Urine Appearance Clear (Clear) Urine pH 5.5 (5.0-9.0) Ur Specific [place] > 1.045 H (1.001-1.035) Urine Protein Negative (Negative) mg/dL Urine Glucose (UA) 3+ H (Negative) mg/dL 06/10 08:00-11:59 05/03/25 12:00-15:59 05/03/25 20:00-23:59 Hematology WBC (4.5-10.0?K/mm3) RBC (4.6-6.20?M/mm3) Hgb (14.0-18.0?g/dL) Hct (42.0-52.0?%) MCV (80-100?fl) MCH (26-34?pg) MCHC (32-36?g/dl) RDW (11.5-14.5?%) Plt Count (150-375?k/mm3) MPV (7.4-10.4?fl) Immature Gran % (Auto) (0-0.5?%) Neut % (Auto) (45.5-73.1?%) Lymph % (Auto) (18.3-44.2?%) [place] % (Auto) (2.6-8.5?%) Eos % (Auto) (0-4.4?%) Baso % (Auto) (0.2-1.2?%) Immature Gran # (Auto) Neut # (Auto) Lymph # (Auto) (0.9-3.2?K/mm3) [place] # (Auto) (0.1-0.6?K/mm3) Eos # (Auto) (0-0.3?K/mm3) Baso # (Auto) (0.0-0.1?K/mm3) Abs Immat Gran (auto) (0.00-0.031?K/mm3) Absolute Neuts (auto) (1.3-6.7?K/mm3) Absolute Nucleated RBC (0.0-0.012?K/mm3) Nucleated RBC % (0.0-0.2?%) ESR 7.0 4.72 14.3 44.3 93.9 30.3 32.3 17.4?H 258 10.1 0.3 81.5?H 9.6?L 6.6 1.6 0.4 0.67?L 0.5 0.1 0.0 0.02 5.7 0.000 0.0 6.0 4.42?L 13.3?L 41.2?L 93.2 30.1 32.3 17.3?H 220 9.6 0.5 81.1?H 9.9?L 7.0 1.0 0.5 0.59?L 0.4 0.1 0.0 0.03 4.8 0.000 0.0 Coagulation PT (11.1-14.7?Seconds) INR APTT (22.3-36.8?Seconds) D-Dimer 14.8?H 1.1?? 32.4 w Blood Gas VBG pH (7.300-7.400) VBG pCO2 (42.0-48.0?mmHg) VBG pO2 (35.0-45.0?mmHg) VBG HCO3 (24.0-30.0?mEq/l) O2 Delivery Device O2 Liters/Min FiO2 7.396 36.1?L 63.6?H 21.7?L Room air Not Reportable 21 Chemistry Sodium (137-145?mmol/L) Potassium (3.4-5.0?mmol/L) Chloride (98-107?mmol/L) Carbon Dioxide (22-30?mmol/L) Anion Gap (4-12?mmol/L) BUN (9-20?mg/dL) Creatinine (0.7-1.3?mg/dL) Estim Creat Clear Calc Estimated GFR (59-) Glucose (65-110?mg/dL) POC Capillary Glucose POC Glucometer Random Glucose Glucose [facility] Hemoglobin A1c Hgb A1c (Clinic) Lactic Acid (0.7-2.0?mmol/L) Calcium (8.4-10.2?mg/dL) Phosphorus Magnesium (1.6-2.3?mg/dL) Iron TIBC % Saturation Ferritin Total Bilirubin (0.2-1.3?mg/dL) AST (17-59?U/L) ALT (6-50?U/L) Alkaline Phosphatase (38-126?U/L) Lactate Dehydrogenase Ammonia (9-30?umol/L) Total Creatine Kinase Troponin I (0.000-0.034?ng/mL) 137 4.5 100 28 9 15? 0.92 Not Reportable > 60?? 269?H 9.2 135?L 4.2 103 22 10 15 0.86 82?? > 60?? 280?H 1.4 8.8 2.1 1.0 27 22 83 < 0.012?? < 9?L C-Reactive Protein NT-Pro-B Natriuret Pep (19.9-100?pg/mL) Total Protein (6.3-8.2?g/dL) Albumin (3.5-5.1?g/dL) Triglycerides (<150?mg/dL) Cholesterol (0-200?mg/dL) LDL Cholesterol Direct HDL Direct Lipase Aldolase Prostate Specific Ag Vit D 1,25-Dihyd Total 1,25 Dihydroxy Vit D2 1,25 Dihydroxy Vit D3 Vitamin B12 (239-931?pg/mL) Vitamin D 25-Hydroxy Folate (2.76->20?ng/mL) Homocysteine TSH (Reflex) Procalcitonin TSH (0.465-4.680?uIU/mL) Free T4 (0.78-2.19?ng/dL) w 1540?H?? 6.5 3.9 430.0 > 20.0?H 0.1?? Urines Urine Color (Yellow) Urine Appearance (Clear) Urine pH (5.0-9.0) Ur Specific [place] (1.001-1.035) Urine Protein (Negative?mg/dL) Urine Occult Blood Urine Glucose (UA) (Negative?mg/dL) Urine Nitrite Urine Ketones (Negative?mg/dL) Ur Blood (Man) (Negative) Urine Nitrate (Negative) Urine Bilirubin (Negative) Ur Leukocyte Esterase Urine Urobilinogen (<2.0?mg/dL) Urine RBC Urine WBC Leukocyte Esterase Rfl (Negative?BETH/UL) Ur Squamous Epith Cell s Hyaline Casts Urine Mucus Ur Random Microalbumin Urine Creatinine Microalb/Creat Ratio Yellow Clear 5.5 1.035 Negative 3+?H 1+?H Negative Negative Negative 0.2 Negative Yellow Clear 5.5 > 1.045?H Negative 3+?H 1+?H Negative Negative Negative 0.2 Negative Serology C. difficile (PCR) Influenza A (RT-PCR) (Negative) Influenza B (RT-PCR) (Negative) RSV (RT-PCR) (Negative) SARS-CoV-2 RNA (RT-PCR) (Negative) Ova & Parasites Negative?? Negative?? Negative?? Negative?? ABG ABG results: VBG pH 7.396 pCO2 36.1 PO2 63.6 HCO3 21.7 Attestation: I personally reviewed and interpreted this ABG as follows: Interpretation: balanced Pulse Oximetry SpO2 results: 93% on room air Attestation: I personally reviewed and interpreted this pulse oximetry as follows: Interpretation: No need for supplemental oxygenation at this time ECG Attestation: I personally reviewed and interpreted this ECG as follows: ECG completion date: 05/03/25 ECG completion time: 13:57 Prior ECG tracings: not available for review Interpretation: Ventricular paced rhythm rate of 80 NM interval 130 QRS duration 185 QTC 555 QRS axis -73 Pacemaker function: normal pacer function Imaging Chest x-ray: Radiologist's impression: XR chest 2V Ordering provider: Eric Pretty MD History: 79 years Male with . Cough, fatigue . Comparison: None. FINDINGS: MEDIASTINUM: The cardiac silhouette is not enlarged. Left bipolar pacemaker. LUNGS: No effusions or pneumothorax. Opacification in the left lung base suggestive of atelectasis versus pneumonia. OTHER: No free air under the diaphragm. IMPRESSION: Left basilar atelectasis versus pneumonia Reviewed, dictated and finalized at location A. CTA chest abdomen pelvis: Radiologist's impression: EXAMINATION: CTA chest PE abdomen pel DATE: 05/03/2025 14:40 INDICATION: Shortness of breath. Abdominal pain. TECHNIQUE: Computed tomography (CT) pulmonary angiogram of the chest was performed with 100 mL Omnipaque-350 intravenous contrast. Additional 3D reconstructions utilizing coronal maximum intensity projection (MIP) were performed. CT of the abdomen and pelvis was performed with intravenous contrast utilizing the same contrast bolus following a short delay. Automated exposure control and iterative reconstruction technique were employed. The dose-length product was 2404.78 mGy-cm. COMPARISON: None FINDINGS: Chest: No pulmonary embolism. Sensitivity decreased in some of the smaller subsegmental pulmonary arteries at the bilateral lung bases due to some respiratory motion. No pneumonia, pulmonary edema, pleural effusion or pneumothorax. Heart size is normal. Cardiac pacemaker lead tips at the right atrial appendage, apex of the right ventricle and in a coronary vein overlying the lateral wall of the left ventricle having traversed the coronary sinus. No pericardial effusion. Ectatic ascending thoracic aorta measuring up to 4.0 cm with no dissection. No pathologically enlarged thoracic lymphadenopathy. Mild thoracic spondylosis. Abdomen/pelvis: Cholecystectomy clips at the gallbladder fossa. Liver, spleen, pancreas and bilateral adrenal glands are normal. Bilateral renal cysts measuring up to 2.3 cm the left kidney. Additional 2.4 cm exophytic lesion at the left kidney with slightly greater than simple fluid attenuation most likely complex proteinaceous/hemorrhagic cyst although solid neoplasm cannot be excluded. There is mild colonic diverticulosis with a sigmoid predominance. There is no adjacent inflammatory change to suggest diverticulitis. Small bowel and appendix are normal. Bladder is normal. Change of prior prostatectomy. No free intraperitoneal gas or fluid. No pathologically enlarged abdominal or pelvic lymphadenopathy. L3 and L4 laminectomies with L3-L5 instrumented anterior and posterior spinal fusion. IMPRESSION: 1. No pulmonary embolism or other acute cardiopulmonary disease. 2. Ectatic ascending thoracic aorta measuring up to 4.0 cm. 3. 2.4 cm intermediate attenuation exophytic lesion at the left kidney most likely proteinaceous/hemorrhagic cyst although solid neoplasm cannot be absolutely excluded. Could consider further evaluation with pre and postcontrast MRI or CT. Reviewed, dictated and finalized at location B. CT scan - head: Radiologist's impression: History: Altered mental status PROCEDURE: CT head without contrast. COMPARISON: 11/07/2023 TECHNIQUE: Axial imaging of the head performed from the skull base to the vertex without IV contrast. Sagittal and coronal reformations obtained. DLP: 605 mGy-cm FINDINGS: The ventricles are enlarged. The dilatation of the ventricles is proportional to the degree of sulcal prominence, not uncommon in the senescent brain. Decreased attenuation is identified within the periventricular white matter, likely secondary to microvascular ischemic disease, in a patient of this age. There is no mass, mass effect or midline shift. There is no abnormal extra-axial fluid collection or intracranial hemorrhage. Visualized paranasal sinuses are clear. The mastoid air cells are well aerated. No acute displaced fractures within the overlying cranium. Impression: No acute intracranial hemorrhage or suspicious mass effect. Reviewed, dictated and finalized at location A. Assessment and Plan Assessment and plan (1) Acute encephalopathy: Code(s): G93.40 - Encephalopathy, unspecified Status: Acute Assessment and Plan: -patient unable to answer questions, cannot get words out correctly -uncertain if patient is understanding since he is not following most commands even though he has full motor movement noted -CT scan of the head ordered after patient seen on the floor, no acute intracranial bleed or large area acute infarction evident per my independent interpretation -radiology states that ventricles are enlarged which may be due to senescent brain -Ammonia added to labs, normal finding -No signs of any infection, lactic acid and procalcitonin normal -Ordered IV thiamine 500 mg IVPB in case of deficiency or Wernicke's encephalopathy -IV Haldol 5 mg given due to continued nausea and co-existing agitated behavior, no change in condition -IV lorazepam 1 mg given due to continued anxiety and inability to stop pulling at everything with some short improvement -No Neurology labor relations officer today or tomorrow, decided to transfer to higher level of care for Neurologic evaluation -Patient already had contrast load today for CTA chest/abd/pelvis, unable to attach IV fluids due to pulling at everything and rolling around constantly, no eating/drinking/oral meds since 05/01 -Did not want to give more IV contrast right now -Pacemaker in place, unable to get an MRI at this facility for this reason -Patient has had care at [facility] repeatedly so called there first -Patient accepted by Hospitalist and bed assigned -Transfer via EMS, notified and consented to transfer (2) Altered mental status: Code(s): R41.82 - Altered mental status, unspecified Status: Acute Assessment and Plan: See above (3) Nausea and vomiting: Code(s): R11.2 - Nausea with vomiting, unspecified Status: Acute Assessment and Plan: -Chief complaint for patient since 05/01/25 -Anxiety/agitation and altered LOC has been worsening since onset of symptoms with loss of speech fluency early today -Tender LUQ -CTA chest abdomen pelvis completed in ER, no findings to explain patient's symptoms -Labs quite normal all things considered -Urine 3+ glucose, 1+ ketones but anion gap normal -Flu, Covid, RSV negative -IV Zofran in ER and IV Haldol after admit for symptoms but still persists (4) Atrial fibrillation with rapid ventricular response: Code(s): I48.91 - Unspecified atrial fibrillation Status: Acute Assessment and Plan: -Underlying afib/flutter, currently Paced on EKG -On Eliquis at home but has not taken for a couple days -NPO due to not following commands -Held anticoagulation/did not order Lovenox as patient likely needs lumbar puncture due to encephalopathy (5) Status cardiac pacemaker: Code(s): Z95.0 - Presence of cardiac pacemaker Status: Acute Assessment and Plan: -Inserted at [facility] Plan Transfer arranged as patient has significant progressive Neurologic deteroriation over past 3 days and no Neurology labor relations officer at this facility until 05/05/25 Quality VTE Prophylaxis VTE prophylaxis: pharmacologic ordered (held for now, patient sharan needs Lumbar puncture) If No VTE Prophylaxis Answer both mechanical and pharmacologic: Reason no mechanical VTE proph: medical contraindication (Patient agitated and pulling everything off) Stroke Date of last known normal: 05/01/25 Time of last known normal: 08:00 Stroke Scale Dictation/Comment: Patient unable to cooperate with stroke exam, full motor and seemingly full sensory intact however patient unable to answer orientation questions or follow commands for further testing Stroke scale date:: 05/04/25 Stroke scale time:: 20:25 1a Level of conciousness: alert-0 1b Level of consciousness: answers none correctly-2 1c Level of consciousness: obeys neither correctly-2 2 Best gaze: normal-0 3 Visual: no visual loss-0 4 Facial palsy: normal-0 5a Motor: left arm: no drift-0 5b Motor: right arm: no drift-0 6a Motor: left leg: no drift-0 6b Motor: right leg: no drift-0 7 Limb ataxia: absent-0 8 Sensory: sev total sensory loss-2 9 Best language: severe aphasia-2 10 Dysarthria: slurs some words-1 11 Extinction and inattention: no abnormality-0 Level:: 9 Comment: Visual, limb ataxia, sensory, extinction and inattention unable to test Pharmacological Therapy Was IV thrombolytic therapy given?: No Contraindications to IV thrombolytic therapy: medical contraindication (timing of symptom onset) Reason anticoag or antiplatelet not ordered by end of day 2: other contraindication (Patient transferred to higher level of care) Reason no anticoagulant or antiplatelet at DC: other contraindication (Patient transferred to higher level of care) Reason no statin at DC: other contraindication (Patient transferred to higher level of care) Reason no anticoagulant at DC if Afib or Aflutter: other contraindication (Pat ient transferred to higher level of care, on Eliquis at home already) Total time spent on this patient including critical care time documented below: 135 minutes Due to a high probability of clinically significant, life threatening deterioration, the patient required my highest level of preparedness to intervene emergently and I personally spent this critical care time directly and personally managing the patient. This critical care time included obtaining a history; examining the patient; pulse oximetry; ordering and review of studies; arranging urgent treatment with development of a management plan; evaluation of patient's response to treatment; frequent reassessment; and discussions with other providers. It was exclusive of separately billable procedures and treating other patients and teaching time. Please see Assessment and Plan section and the rest of the note for further information on patient assessment and treatment. Critical Care time: 50 minutes Hospitalist MIPS Advance Care Plan I have confirmed that the patient's Advanced Care Plan is present, code status is documented, or surrogate decision maker is listed in patient medical record.: Yes Medication Reconciliation I have utilized all available resources to obtain, update and review the patients current medications (includes all prescriptions, OTC, herbals, cannabis, and nutritional supplements).: No The patient is not eligible for med reconciliation; the patient is in a emergent medical situation where delaying treatment would jeopardize the patients health.: Yes
[2025-05-03 21:11] LABS: Device ROOM AIR; Fractional Inspired Oxygen 21 %; HCO3 VBG 21.7 mEq/l (24.0-30.0); PCO2 VBG 36.1 mmHg (42.0-48.0); PO2 VBG 63.6 mmHg (35.0-45.0); pH VBG 7.396 (7.300-7.400)
[2025-05-03 21:14] LABS: Ammonia < 9 umol/L (9-30)
[2025-05-03 21:48] LABS: Procalcitonin 0.1 ng/mL
[2025-05-03] MEDS: HALOPERIDOL LACTATE 5 MG/ML VIAL IV PUSH (21:55)
[2025-05-03] MEDS: LORazepam INJ (*CRX) 2 MG/ML VIAL 1 MG IV PUSH (22:31)
[2025-05-03 22:42] LABS: Folic Acid > 20.0 ng/mL (2.76->20)
--- NOTE | 2025-05-04 00:34 | P.TS_ITS ---
Transfer Discharge Sum: Prov Provider Date of admission: 05/03/25 17:29 Primary care physician: Eric Pretty MD Admitting clinician: Severiano Figueroa MD Consults: Neurology not driver's education instructor or available until 05/05/25 at this facility Discharging clinician: Brenden Valencia Anticipated date of transfer: 05/04/25 Receiving physician/facility: Dr. Bk Joseph--Hospitalist accepted transfer DS: Admitting Diagnosis Discharge Date 05/04/2025 Admitting Diagnosis nausea/vomiting DS: Discharge Diagnosis Discharge Diagnosis (1) Acute encephalopathy: Code(s): G93.40 - Encephalopathy, unspecified Status: Acute (2) Altered mental status: Code(s): R41.82 - Altered mental status, unspecified Status: Acute (3) Nausea and vomiting: Code(s): R11.2 - Nausea with vomiting, unspecified Status: Acute (4) Atrial fibrillation with rapid ventricular response: Code(s): I48.91 - Unspecified atrial fibrillation Status: Acute (5) Status cardiac pacemaker: Code(s): Z95.0 - Presence of cardiac pacemaker Status: Acute Transfer Discharge Sum: Med Medications Active and Home Medications: Home Medications clopidogrel 75 mg tablet 75 mg PO DAILY 06/06/22 [History Confirmed 05/03/25] Home Nebulizer Machine #1 device 09/22/23 [Rx Confirmed 05/03/25] ferrous sulfate 325 mg (65 mg iron) tablet 325 mg PO BID 10/23/23 [History Confirmed 05/03/25] folic acid 1 mg tablet 1 mg PO DAILY 01/06/24 [History Confirmed 05/03/25] methotrexate sodium 2.5 mg tablet 2.5 mg PO WEEKLY 01/06/24 [History Confirmed 05/03/25] empagliflozin 25 mg tablet (Jardiance) 25 mg PO DAILY #90 tabs 04/19/24 [Rx Confirmed 05/03/25] sertraline 100 mg tablet See Rx Instructions .Route .COMPLEX #90 tabs 10/25/24 [Rx Confirmed 05/03/25] glucagon 1 mg/0.2 mL subcutaneous auto-injector (Gvoke HypoPen 2-Pack) 1 mg (0.2 mL) subcut ONCE #0.4 mL 11/04/24 [Rx Confirmed 05/03/25] pen needle, diabetic 32 gauge x 5/32 (BD Ultra-Fine Gabrielle Pen Needle) #300 ea 11/04/24 [Rx Confirmed 05/03/25] apixaban 5 mg tablet (Eliquis) 5 mg PO Q12HR #60 tabs 11/15/24 [Rx Confirmed 05/03/25] prednisone 5 mg tablet 5 mg PO DAILY 11/16/24 [History Confirmed 05/03/25] pantoprazole 40 mg tablet,delayed release See Rx Instructions .Route .COMPLEX #90 tabs 12/06/24 [Rx Confirmed 05/03/25] insulin regular hum U-500 conc 500 unit/mL(3 mL) subcut pen (Humulin R U-500 (Conc) Insulin Kwikpen) See Rx Instructions subcut DAILY 90 days #27 mL 01/19/25 [Rx Confirmed 05/03/25] atorvastatin 40 mg tablet See Rx Instructions .Route .COMPLEX #90 tabs 03/21/25 [Rx Confirmed 05/03/25] hydrocodone 5 mg-acetaminophen 325 mg tablet 1 tablet PO Q8H PRN pain #20 tabs 03/21/25 [Rx Confirmed 05/03/25] gabapentin 300 mg capsule See Rx Instructions .Route .COMPLEX #810 caps 04/27/25 [Rx Confirmed 05/03/25] Active Medications Dextrose (Dextrose 50% 25 Gm/50 Ml Syringe) 12.5 gm IV PUSH PRN PRN; Protocol PRN Reason: Hypoglycemia Glucagon (Glucagon For Inj 1 Mg Vial) 1 mg IM PRN PRN; Protocol PRN Reason: Hypoglycemia Glucose (Glucose Oral Gel 15 Gm Of Glucse In 37.5 Gm Tube) 15 gm PO PRN PRN; Protocol PRN Reason: Hypoglycemia Sodium Chloride (Normal Saline Iv) 1,000 mls @ 100 mls/hr IV CONT .Q10H KAYLEEN Dextrose (Dextrose 5% 1,000 Ml) 1,000 mls @ 100 mls/hr IVPB PRN PRN; Protocol PRN Reason: Hypoglycemia Insulin Aspart (Insulin Aspart (*Bkc) 100 Units/Ml) 4 - 8 units SUB-Q TIDWM KAYLEEN; Protocol Ondansetron HCl (Ondansetron Inj 4 Mg/2 Ml Vial) 4 mg IV PUSH Q4H PRN PRN Reason: Nausea Pantoprazole Sodium (Pantoprazole Sodium Iv 40 Mg Vial) 40 mg IV PUSH QAM KAYLEEN Transfer Discharge Sum: Hosp Hospital Course Hospital course: Kameron Man is a 79 year old male admitted with nausea/vomiting/LUQ abdominal pain but was very agitated and not following commands on arrival to the floor. After further discussion with patient's , it was determined that in addition to the nausea/vomiting/not taking meds/not eating/not drinking since 05/01, he has also had progressive neurologic declines since then as well. This was not evaluated in ER. We initiated workup for neurologic causes of patient's condition with head CT and additional labs given clear presentation of acute encephalopathy. His describes his symptoms as progressive. See below for HPI/Plan from H&P note: H&P: HPI History of Present Illness Date/Time: 05/03/25 20:38 Chief Complaint: Nausea/vomiting with progressive neurologic dysfunction worsening over past 3 days Narrative: This patient, Mr. Kameron Man, has been unwell for approximately two and a half days. During this period, he has not been eating, has been vomiting, and has not taken his medications. He has been fidgety, moving from one bed to another, and is not responding or behaving as he normally does. His reports that he is typically lame (uses motorized scooter for past 3 years), but over the last few days, he has been less responsive and not himself. There has been a notable change in his speech and ability to communicate, which appeared to worsen today, particularly after a visit to Dr. Pretty. He was subsequently sent to the Emergency Room by Dr. Pretty. He has also complained of pain in the left upper abdomen. There is no clear history of similar episodes in the past year. He has a history of heart problems, including a recently placed pacemaker (described as a 'newer thing' that was 'just had... put in'), and takes methotrexate for rheumatoid arthritis. There is no significant alcohol use reported, though his mentions he drinks sometimes. He has a history of sleep apnea but does not use his CPAP mask, with his noting he 'won't wear the mask.' All of HPI information given by patient's due to altered mental status * Most likely diagnosis includes acute encephalopathy or delirium, possibly secondary to infection, metabolic derangement, hydrocephalus or cardiac event (given recent pacemaker and history of heart disease). Other considerations include stroke, medication side effects, or acute exacerbation of underlying chronic illness (e.g., rheumatoid arthritis, heart failure). * Differential diagnoses: Stroke, infection (e.g., sepsis, UTI, pneumonia), metabolic disturbance (electrolyte imbalance, hypoglycemia), medication toxicity, cardiac event (arrhythmia, pacemaker malfunction), acute rheumatologic flare. Review of Systems Review of Systems: Denied chest pain or trouble breathing, reports left upper abdominal pain and nausea ROS unobtainable: Yes unobtainable due to mental status Assessment and Plan Assessment and plan (1) Acute encephalopathy: Code(s): G93.40 - Encephalopathy, unspecified Status: Acute Assessment and Plan: -patient unable to answer questions, cannot get words out correctly -uncertain if patient is understanding since he is not following most commands even though he has full motor movement noted -CT scan of the head ordered after patient seen on the floor, no acute intracranial bleed or large area acute infarction evident per my independent interpretation -radiology states that ventricles are enlarged which may be due to senescent brain -Ammonia added to labs, normal finding -No signs of any infection, lactic acid and procalcitonin normal -Ordered IV thiamine 500 mg IVPB in case of deficiency or Wernicke's encephalopathy -IV Haldol 5 mg given due to continued nausea and co-existing agitated behavior, no change in condition -IV lorazepam 1 mg given due to continued anxiety and inability to stop pulling at everything with some short improvement -No Neurology driver's education instructor today or tomorrow, decided to transfer to higher level of care for Neurologic evaluation -Patient already had contrast load today for CTA chest/abd/pelvis, unable to attach IV fluids due to pulling at everything and rolling around constantly, no eating/drinking/oral meds since 05/01 -Did not want to give more IV contrast right now -Pacemaker in place, unable to get an MRI at this facility for this reason -Patient has had care at [facility] repeatedly so called there first -Patient accepted by Hospitalist and bed assigned -Transfer via EMS, notified and consented to transfer (2) Altered mental status: Code(s): R41.82 - Altered mental status, unspecified Status: Acute Assessment and Plan: See above (3) Nausea and vomiting: Code(s): R11.2 - Nausea with vomiting, unspecified Status: Acute Assessment and Plan: -Chief complaint for patient since 05/01/25 -Anxiety/agitation and altered LOC has been worsening since onset of symptoms with loss of speech fluency early today -Tender LUQ -CTA chest abdomen pelvis completed in ER, no findings to explain patient's symptoms -Labs quite normal all things considered -Urine 3+ glucose, 1+ ketones but anion gap normal -Flu, Covid, RSV negative -IV Zofran in ER and IV Haldol after admit for symptoms but still persists (4) Atrial fibrillation with rapid ventricular response: Code(s): I48.91 - Unspecified atrial fibrillation Status: Acute Assessment and Plan: -Underlying afib/flutter, currently Paced on EKG -On Eliquis at home but has not taken for a couple days -NPO due to not following commands -Held anticoagulation/did not order Lovenox as patient likely needs lumbar puncture due to encephalopathy (5) Status cardiac pacemaker: Code(s): Z95.0 - Presence of cardiac pacemaker Status: Acute Assessment and Plan: -Inserted at [facility] Plan Transfer arranged as patient has significant progressive Neurologic deterioration over past 3 days and no Neurology driver's education instructor at this facility until 05/05/25 Quality VTE Prophylaxis VTE prophylaxis: pharmacologic ordered (held for now, patient sharan needs Lumbar puncture) If No VTE Prophylaxis Answer both mechanical and pharmacologic: Reason no mechanical VTE proph: medical contraindication (Patient agitated and pulling everything off) Stroke Date of last known normal: 05/01/25 Time of last known normal: 08:00 Stroke Scale Dictation/Comment: Patient unable to cooperate with stroke exam, full motor and seemingly full sensory intact however patient unable to answer orientation questions or follow commands for further testing Stroke scale date:: 05/04/25 Stroke scale time:: 20:25 1a Level of conciousness: alert-0 1b Level of consciousness: answers none correctly-2 1c Level of consciousness: obeys neither correctly-2 2 Best gaze: normal-0 3 Visual: no visual loss-0 4 Facial palsy: normal-0 5a Motor: left arm: no drift-0 5b Motor: right arm: no drift-0 6a Motor: left leg: no drift-0 6b Motor: right leg: no drift-0 7 Limb ataxia: absent-0 8 Sensory: sev total sensory loss-2 9 Best language: severe aphasia-2 10 Dysarthria: slurs some words-1 11 Extinction and inattention: no abnormality-0 Level:: 9 Comment: Visual, limb ataxia, sensory, extinction and inattention unable to test Pharmacological Therapy Was IV thrombolytic therapy given?: No Contraindications to IV thrombolytic therapy: medical contraindication (timing of symptom onset) Reason anticoag or antiplatelet not ordered by end of day 2: other co ntraindication (Patient transferred to higher level of care) Reason no anticoagulant or antiplatelet at DC: other contraindication (Patient transferred to higher level of care) Reason no statin at DC: other contraindication (Patient transferred to higher level of care) Reason no anticoagulant at DC if Afib or Aflutter: other contraindication (Patient transferred to higher level of care, on Eliquis at home already) Time Spent with Patient Time attestation: Total time spent providing and/or coordinating transfer services: 45 additional minutes beyond initial H&P chart Exam Narrative: GENERAL: Very agitated pulling off clothing, barely speaking any words, seems to understand questions but cannot answer, does not follow commands at all times but spontaneous movement of all extremities appears equal in strength and motor function HEAD: Normocephalic, atraumatic. ENT:? Mucous membranes dry. CHEST: Clear to auscultation.? No respiratory distress. HEART: Regular rate and rhythm. ? Strong peripheral pulses. ABDOMEN: Soft, normal bowel sounds, LUQ tender to palpation EXTREMITIES: Normal range of motion. No peripheral edema. SKIN: Warm dry normal color NEURO: Awake, confused, agitated, barely speaking any words, seems to understand questions but cannot answer, does not follow commands at all times but spontaneous movement of all extremities appears equal in strength and motor function. DS: Data Data Completed and Pending Labs on day of discharge: Labs from last 24 hours 05/03/25 05/03/25 05/03/25 21:05 20:59 15:41 WBC RBC Hgb Hct MCV MCH MCHC RDW Plt Count MPV Immature Gran % (Auto) Neut % (Auto) Lymph % (Auto) [place] % (Auto) Eos % (Auto) Baso % (Auto) Lymph # (Auto) [place] # (Auto) Eos # (Auto) Baso # (Auto) Abs Immat Gran (auto) Absolute Neuts (auto) Absolute Nucleated RBC Nucleated RBC % PT 14.8 H INR 1.1 APTT 32.4 VBG pH 7.396 VBG pCO2 36.1 L VBG pO2 63.6 H VBG HCO3 21.7 L O2 Delivery Device Room air O2 Liters/Min Not Reportable FiO2 21 Sodium Potassium Chloride Carbon Dioxide Anion Gap BUN Creatinine Estim Creat Clear Calc Estimated GFR Glucose Lactic Acid 1.4 Calcium Magnesium 2.1 Total Bilirubin AST ALT Alkaline Phosphatase Ammonia < 9 L Troponin I < 0.012 NT-Pro-B Natriuret Pep 1540 H Total Protein Albumin Vitamin B12 Folate Procalcitonin Urine Color Urine Appearance Urine pH Ur Specific [place] Urine Protein Urine Glucose (UA) Urine Ketones Ur Blood (Man) Urine Nitrate Urine Bilirubin Urine Urobilinogen Leukocyte Esterase Rfl Influenza A (RT-PCR) Negative Influenza B (RT-PCR) Negative RSV (RT-PCR) Negative SARS-CoV-2 RNA (RT-PCR) Negative 05/03/25 05/03/25 05/03/25 15:40 15:29 13:52 WBC 6.0 RBC 4.42 L Hgb 13.3 L Hct 41.2 L MCV 93.2 MCH 30.1 MCHC 32.3 RDW 17.3 H Plt Count 220 MPV 9.6 Immature Gran % (Auto) 0.5 Neut % (Auto) 81.1 H Lymph % (Auto) 9.9 L [place] % (Auto) 7.0 Eos % (Auto) 1.0 Baso % (Auto) 0.5 Lymph # (Auto) 0.59 L [place] # (Auto) 0.4 Eos # (Auto) 0.1 Baso # (Auto) 0.0 Abs Immat Gran (auto) 0.03 Absolute Neuts (auto) 4.8 Absolute Nucleated RBC 0.000 Nucleated RBC % 0.0 PT INR APTT VBG pH VBG pCO2 VBG pO2 VBG HCO3 O2 Delivery Device O2 Liters/Min FiO2 Sodium 135 L Potassium 4.2 Chloride 103 Carbon Dioxide 22 Anion Gap 10 BUN 15 Creatinine 0.86 Estim Creat Clear Calc 82 Estimated GFR > 60 Glucose 280 H Lactic Acid Calcium 8.8 Magnesium Total Bilirubin 1.0 AST 27 ALT 22 Alkaline Phosphatase 83 Ammonia Troponin I NT-Pro-B Natriuret Pep Total Protein 6.5 Albumin 3.9 Vitamin B12 430.0 Folate > 20.0 H Procalcitonin 0.1 Urine Color Yellow Urine Appearance Clear Urine pH 5.5 Ur Specific [place] > 1.045 H Urine Protein Negative Urine Glucose (UA) 3+ H Urine Ketones 1+ H Ur Blood (Man) Negative Urine Nitrate Negative Urine Bilirubin Negative Urine Urobilinogen 0.2 Leukocyte Esterase Rfl Negative Influenza A (RT-PCR) Influenza B (RT-PCR) RSV (RT-PCR) SARS-CoV-2 RNA (RT-PCR)
[2025-05-04] MEDS: HYDROmorphone HCL INJ (*CRX) 2 MG/ML VIAL 0.5 MG IV PUSH (01:57)
== END 2025-05-04 02:07 | disposition short-term general hospital (02) ==
LOC: ANHED 17:53 → ANH3MEDSUR 18:50
PROVIDERS: Family Medicine; Nurse Practitioner; Admitting Provider General Practice; Emergency Provider Emergency Medicine; PCP Internal Medicine; Visit Provider General Practice
DX: G93.40 Encephalopathy, unspecified (principal); R53.1 Weakness; R11.2 Nausea with vomiting, unspecified; I48.91 Unspecified atrial fibrillation; E11.42 Type 2 diabetes mellitus with diabetic polyneuropathy; E11.319 Type 2 diabetes mellitus with unspecified diabetic retinopathy without macular edema; I25.10 Atherosclerotic heart disease of native coronary artery without angina pectoris; I25.2 Old myocardial infarction; G47.33 Obstructive sleep apnea (adult) (pediatric); M06.9 Rheumatoid arthritis, unspecified; G25.0 Essential tremor; Z20.822 Contact with and (suspected) exposure to COVID-19; Z79.01 Long term (current) use of anticoagulants; Z79.02 Long term (current) use of antithrombotics/antiplatelets; Z79.4 Long term (current) use of insulin; Z79.52 Long term (current) use of systemic steroids; Z79.899 Other long term (current) drug therapy; Z85.46 Personal history of malignant neoplasm of prostate; Z87.891 Personal history of nicotine dependence; Z90.49 Acquired absence of other specified parts of digestive tract; Z92.3 Personal history of irradiation; Z86.718 Personal history of other venous thrombosis and embolism; Z95.0 Presence of cardiac pacemaker; Z95.5 Presence of coronary angioplasty implant and graft; Z96.1 Presence of intraocular lens; Z98.42 Cataract extraction status, left eye; Z98.41 Cataract extraction status, right eye; Z98.890 Other specified postprocedural states
CPT/HCPCS: 36415; 70450; 71275; 74177; 80048; 80053; 81003; 82140; 82607; 82746; 82803; 83605; 83735; 83880; 84145; 84484; 85025; 85610; 85730; 87637; 93005; 96361; 96374; 96375; 96376; 99285; G0378; J1171; J1630; J2060; J2405; J7030; Q9967

== ENCOUNTER 2025-06-06 11:35 | Emergency (ER) | payer MEDICARE, SELFPAY ==
[2025-06-06] VITALS (21 sets, daily range): BP systolic 95–125; BP diastolic 57–82; PULSE 79–82; RESP 12–21; TEMP 36.6; O2SAT 92–100
--- NOTE | ~2025-06-06 | CT_ITS ---
EXAM: CT cervical spine wo con - 06/06/2025 12:30 CDT History: 79 years old Male with fall COMPARISON: None available. PROCEDURE: CT of the cervical spine without contrast. Axial, sagittal and coronal reformatted plane s were evaluated. Automatic exposure control was used for this study. FINDINGS: No acute fracture or subluxation. Straightening of cervical lordosis, likely positional or may be rel ated to muscle spasm. Multilevel degenerative changes of the cervical spine include varying degrees o f disk space narrowing, endplate osteophytosis as well as facet and uncal arthropathy. Prevertebral s oft tissues are within normal limits. Visualized lung apices are clear. IMPRESSION: No evidence for cervical spine fracture or traumatic subluxation. Multilevel degenerative changes of the cervical spine. Reviewed, dictated and finalized at location A.
--- NOTE | ~2025-06-06 | XR_ITS ---
EXAM/ PROCEDURE: XR hip LT 2V w AP pelvis - 06/06/2025 13:20 CDT HISTORY: 79 years old Male with left hip pain, trauma COMPARISON: None available TECHNIQUE: Three view(s) FINDINGS/ IMPRESSION: There are no fractures or dislocations.Joint space narrowing, subchondral sclerosis, subchondral cyst formation and osteophyte formation, compatible with mild osteoarthritis. Partially visualized rope cleaner ior spinal fusion hardware. Reviewed, dictated and finalized at location A.
--- NOTE | ~2025-06-06 | CT_ITS ---
History: Fall PROCEDURE: CT head without contrast. COMPARISON: 05/03/2025 TECHNIQUE: Axial imaging of the head performed from the skull base to the vertex without IV contrast. Sagittal a nd coronal reformations obtained. DLP: 605 mGy-cm FINDINGS: The ventricles are enlarged. The dilatation of the ventricles is proportional to the degree of sulcal prominence, not uncommon in the senescent brain. Decreased attenuation is identified within the periventricular white matter, likely secondary to micr ovascular ischemic disease, in a patient of this age. There is no mass, mass effect or midline shift. There is no abnormal extra-axial fluid collection or intracranial hemorrhage. Visualized paranasal sinuses are clear. The mastoid air cells are well aerated. No acute displaced fractures within the overlying cranium. Impression: No acute intracranial hemorrhage or suspicious mass effect. Reviewed, dictated and finalized at location A. Impression: No acute intracranial hemorrhage or suspicious mass effect.
--- OUTSIDE RECORDS SUMMARY | 2025-06-06 11:38 | XMS_ITS | Clinical Summary ---
Author Organization [facility] Address [address] [place] [address] Care Team Providers Care Member Services Representative Name Role Phone Eric Pretty MD Primary Care Provider [phone] Social History Tobacco Use Types Packs/Day Years Used Date Smoking Tobacco: Never Assessed Sex and Gender Information Value Date Recorded Sex Assigned at Not on file Legal Sex Male 8:39 AM [employer] Gender Identity Not on file Sexual Orientation Not on file Plan of Treatment Health Maintenance Due Date Last Done Comments Hepatitis C 1963 DTaP, Tdap and Td Vaccines ( 1 - Tdap) 1964 Pneumococcal Vaccine: 50+ Ye ars (1 of 1 - PCV) 1995 Zoster Vaccines (1 of 2) 1995 Annual Medicare Wellness Visit 2010 RSV Immunization or 60+ Years (1 [...] age to complete this topic Insurance MEDICARE [facility] Care Teams Member Services Representative Relationship Specialty Start Date End Date Eric Pretty MD [address] - [facility] [place] [address] [place] [address] PCP - General INTERNAL MEDICINE 11/15/19
--- OUTSIDE RECORDS SUMMARY | 2025-06-06 11:39 | XMS_ITS | Continuity of Care Document ---
Author Organization [facility] Address [address] [place] [address] Phone Care Team Providers Care Scanning Supervisor Name Role Phone Wally Ray MD Unavailable [...] OFFICE CONSULTATION POSTOP FOLLOW-UP VISIT OFFICE/OUTPATIENT VISIT [facility] Advance Directives Directive Yes / No Effective Date File Name No Information Encounters Encounter Description Practice Location Reason(s) For Visit Diagnoses Date Provider Providers Copied on Encounter OFFICE CONSULTATION [facility], [address], [place], [address], [place] tel:[phone] [facility] [place] Biceps tendon tear [address] Lo. [address], [place], [place], [id number] . tel: [phone] Referring Provider: Master Melendez, [address], [place], [address] . tel:[phone] [facility], [address], [place], [address], tel:[phone] [facility] Onychia of finger [address]. [address] [place], [place], [id number] . tel: [phone] OFFICE/OUTPATI ENT VISIT [facility], [address] [facility] [place] [place], [address], tel:[phone] [facility] [address]. [address] [place], [place], [id number] . tel: [phone] Family History Family Member Type Diagnosis Age [...]
--- OUTSIDE RECORDS SUMMARY | 2025-06-06 11:39 | XMS_ITS | Clinical Summary ---
Author Organization [facility] Address [address] [place] [address] Care Team Providers Care Environmental Services Project Manager Name Role Phone Eric Pretty MD Primary Care Provider Source Comments [facility],non-owned Affiliates and Associated Physician Practices is amultiple site organization consisting of ambulatory clinics and hospital sitesin [place], [place], [place] and [place]. This disclosure is being madepursuant to the Care Everywhere program and may not contain all information available regarding this patient. 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
--- OUTSIDE RECORDS SUMMARY | 2025-06-06 11:39 | XMS_ITS | Clinical Summary ---
Author Organization [facility] [address] Address [address] [place] [address] Care Team Providers Care Help Desk Rep Name Role Phone Eric Pretty MD Primary Care Provider [phone] Dominic Young MD Unavailable [phone] Carlos Hernandez MD Unavailable Allergies Active Allergy Reactions Criticality Noted Date [...] mouth 2 (two) times a day Active folic acid (FOLVITE) 1 mg tablet [...] 7 DAYS 96 tablet 04/27/20 25 Active predniSONE (DELTASONE) 5 mg tablet Take 1 tablet by mouth once daily 30 tablet 2 06/06/20 25 Active predniSONE (DELTASONE) 5 mg tablet Take 1 tablet by mouth once daily 30 tablet 2 01/25/20 25 2024 Discontinued Active Problems Problem Noted Date [...] occurs. Assessment & Plan (12/24/2024 12:49 PM AGED OR DISABLED CARER): BMD 06/09/24: LFN 0.761, tscore -1.2 Total [...] occurs. Assessment & Plan (09/23/2024 2:49 PM AGED OR DISABLED CARER): BMD 06/09/24: LFN 0.761, tscore -1.2 Total [...] candidate Assessment & Plan (09/23/2024 1:14 PM AGED OR DISABLED CARER): Xrays 2016: Moderate osteoarthritis of the acromioclavicular [...] walks. Assessment & Plan (12/12/2022 3:07 PM AGED OR DISABLED CARER): R shoulder hurting for the past 2-3 days. May have been triggered by carrying in grocery bags. Hx rotator cuff tears per pt's report. Recommend heat/ice, rest. Will order PT. Consider seeing ortho if not improving Atherosclerotic cardiovascular disease Assessment & Plan (11/12/2022 3:08 PM AGED OR DISABLED CARER): S/p multiple MIs/cardiac arrest, sick sinus, CHF. Has pacemaker. 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 Young. On eliquis and clopidogrel History of DVT of lower extremity 11/12/2022 History of prostate cancer 11/12/2022 Overview (11/12/2022): Treated with radiation in 2017 Chronic pain syndrome 12/16/2021 Type 2 diabetes mellitus wit h diabetic neuropathy, unspecified 11/17/2020 Chronic pain of right knee 06/08/2019 Assessment & Plan (09/23/2024 1:05 PM AGED OR DISABLED CARER): Mild OA on xray from 06/04. Had [...] benefit. Assessment & Plan (01/04/2020 12:03 PM AGED OR DISABLED CARER): Mild OA on xray from 06/04. Had cortisone shots years ago but they spiked his sugars. Had zilretta on 10/29/19 as this formulation causes less systemic steroid effect than regular triamcinolone injection. However, he reported no benefit. Assessment & Plan (10/26/2019 2:15 PM AGED OR DISABLED CARER): Mild OA on xray from 06/04. Had [...] mgmt: [facility] ([facility]) in [facility] Assessment & Plan (04/01/2025 4:13 PM CDT): 3 prior back surgeries and still having a lot of pain. Decided against pursuing any more surgery. Has been to pain mgmt in [facility]. Continues to take gabapentin for neuropathic pain. Assessment & Plan (12/24/2024 2:28 PM AGED OR DISABLED CARER): 3 prior back surgeries and still having a lot of pain. Decided against pursuing any more surgery. Has been to pain mgmt in [facility]. Continues to take gabapentin for neuropathic pain. Assessment & Plan (09/23/2024 1:05 PM AGED OR DISABLED CARER): 3 prior back surgeries and still having a lot of pain. Decided against pursuing any more surgery. Has been to pain mgmt in [facility]. Continues to take gabapentin for neuropathic pain. Assessment & Plan (06/22/2024 3:21 PM CDT): 3 prior back surgeries and still having a lot of pain. Decided against pursuing any more surgery. Has been to pain mgmt in [facility]. Continues to take gabapentin for neuropathic pain. Assessment & Plan (03/16/2024 4:37 PM CDT): 3 prior back surgeries and still having a lot of pain. Decided against pursuing any more surgery. Has been to pain mgmt in [facility]. Continues to take gabapentin for neuropathic [...] surgery. Has been to pain mgmt in [facility]. Continues to take gabapentin for neuropathic pain Assessment & Plan (07/28/2023 3:39 PM CDT): 3 prior back surgeries and still having a lot of pain. Decided against pursuing any more surgery. Has been to pain mgmt in [facility]. Continues to take gabapentin for neuropathic pain Assessment & Plan (05/27/2023 4:30 PM CDT): 3 prior back surgeries and still having a lot of pain. Thinking about going back to see nsg for opinion if there is anything else he can do. Has been to pain mgmt in [facility]. Continues to take gabapentin for neuropathic pain Assessment & Plan (11/12/2022 3:05 PM AGED OR DISABLED CARER): 3 prior back surgeries and he does not want to have any additional surgery. Sees pain mgmt in [facility]. Discussed pain stimulator but he deferred for now. Continues to take gabapentin for neuropathic pain Assessment & Plan (01/04/2020 12:04 PM AGED OR DISABLED CARER): No surgery planned. Continue to f/u with pcp and pain mgmt. Encouraged to continue water exercise. Declines PT. Discuss weight loss treatments with pcp. He used to be on duloxetine for mood and chronic pain and can't remember why he stopped. He would be willing to restart this now. Begin 30mg daily. Assessment & Plan (10/26/2019 2:16 PM AGED OR DISABLED CARER): No surgery planned. Continue to f/u with [...] & Plan (08/21/2018 2:15 PM CDT): Saw flow trader who put him back on midodrine. Just [...] Neg quantiferon 12/18 Neg hepatitis 12/18 utd [id number], [id number], yearly flu shot. Had shingrix Had RSV vaccine Had original COVID vaccine series but not additional boosters Assessment & Plan (12/24/2024 12:50 PM AGED OR DISABLED CARER): Neg quantiferon 12/18 Neg hepatitis 12/18 utd dxopesb58, tevoopygj61, yearly flu shot. Had shingrix Had RSV vaccine Had original COVID vaccine series but not additional boosters Assessment & Plan (09/23/2024 1:19 PM AGED OR DISABLED CARER): Neg quantiferon 12/18 Neg hepatitis 12/18 utd , , yearly flu shot. Had shingrix Had RSV vaccine Had original COVID vaccine series but not additional boosters Assessment & Plan (06/22/2024 1:27 PM CDT): Neg quantiferon 12/18 Neg hepatitis 12/18 utd [id number], nkushuspl12, yearly flu shot. Recommend shingrix, COVID booster Assessment & Plan (03/16/2024 2:20 PM CDT): Neg quantiferon 12/18 Neg hepatitis 12/18 utd ehoawnx18, pqqoflgnf20, yearly flu shot. Recommend shingrix, COVID booster Assessment & Plan (01/27/2024 1:06 PM CDT): Neg quantiferon 12/18 Neg hepatitis 12/18 utd ygljddx10, hotyjeayl84, yearly flu shot. Recommend shingrix, COVID booster Assessment & Plan (10/28/2023 3:46 PM AGED OR DISABLED CARER): Neg quantiferon 12/18 Neg hepatitis 12/18 utd [id number], aoskkrzjx13, yearly flu shot. Recommend shingrix, COVID booster Assessment & Plan (07/28/2023 2:25 PM CDT): Neg quantiferon 12/18 Neg hepatitis 12/18 utd dmarpht32, xhavlazoq58, yearly flu shot. Recommend shingrix, COVID booster Assessment & Plan (05/27/2023 1:55 PM CDT): Neg quantiferon 12/18 Neg hepatitis 12/18 utd eunduwd30, flotmndob94, flu shot. Recommend shingrix, COVID boosters if not done Assessment & Plan (04/17/2023 4:33 PM CDT): Neg quantiferon 12/18 Neg hepatitis 12/18 utd juqdclc67, , flu shot. Recommend shingrix, COVID boosters if not done Assessment & Plan (12/12/2022 3:06 PM AGED OR DISABLED CARER): Neg quantiferon 12/18 Neg hepatitis 12/18 utd tadljsj03, wkzlyqvtg87, flu shot. Recommend shingrix, COVID boosters if not done Will advise Evusheld if he goes back on Rituxan in the future Assessment & Plan (11/12/2022 3:05 PM AGED OR DISABLED CARER): Neg quantiferon 12/18 Neg hepatitis 12/18 utd zuytzll65, ebyzebfoi38, flu shot. Recommend shingrix, COVID boosters if not done Will advise Evusheld if he goes back on Rituxan in the future Assessment & Plan (01/04/2020 11:23 AM AGED OR DISABLED CARER): Neg quantiferon 12/18 Neg hepatitis 12/18 utd dnejmbh01, syvoywepu68, flu shot. Recommend shingrix Assessment & Plan (10/26/2019 11:19 AM AGED OR DISABLED CARER): Neg quantiferon 12/18 Neg hepatitis 12/18 utd vqgubdb20, ikbyqptgy65, flu shot. Recommend shingrix Assessment & Plan (08/10/2019 11:37 AM CDT): Neg quantiferon 12/18 Neg hepatitis 18 Assessment & Plan (06/08/2019 12:09 PM CDT): Neg quantiferon 12/18 Neg hepatitis 12/18 Assessment & Plan (03/26/2019 8:13 AM CDT): Neg quantiferon 12/18 Neg hepatitis 1218 Assessment & Plan (12/24/2018 9:59 PM AGED OR DISABLED CARER): Neg quantiferon / Neg hepatitis 11/03 Syncope and collapse 08/28/2017 Orthostasis 08/28/2017 Coronary artery disease invo lving [place] coronary artery of [place] heart with angina pectoris 08/28/2017 Assessment & Plan (01/04/2020 12:04 PM AGED OR DISABLED CARER): Pt had abnormal stress test followed by cardiac cath, stenting. Symptoms currently improved. flow trader Dr. Young. Requested lipid panel so will [...] (02/21/2017): Seasonal allergies Rheumatoid arthritis of [facility] sites with negative rheumatoid factor 05/06/2011 Overview [...] needed Assessment & Plan (12/24/2024 2:28 PM AGED OR DISABLED CARER): cdai = 33, high Was not seen [...] needed Assessment & Plan (09/23/2024 2:48 PM AGED OR DISABLED CARER): cdai = 17, moderate Was not seen [...] weeks Assessment & Plan (10/28/2023 3:45 PM AGED OR DISABLED CARER): cdai = 10, low, improving Was not [...] month Assessment & Plan (12/12/2022 3:05 PM AGED OR DISABLED CARER): cdai = 27, high Last seen in [...] month Assessment & Plan (11/12/2022 3:10 PM AGED OR DISABLED CARER): cdai = 32, high Last seen in [...] month Assessment & Plan (01/04/2020 11:21 AM AGED OR DISABLED CARER): cdai = 26, high Pt received first [...] months Assessment & Plan (10/26/2019 2:17 PM AGED OR DISABLED CARER): cdai = 30 Pt received first Rituxan [...] today. Assessment & Plan (12/24/2018 9:58 PM AGED OR DISABLED CARER): cdai = 13, low-moderate Pt received first [...] doing. Assessment & Plan (10/26/2018 9:41 AM AGED OR DISABLED CARER): High cdai. Patient has been having more [...] Type Department Care Team Description 04/08/2025 Telephone [facility] [address] [place] [phone] Natacha Henley 04/01/2025 1:15 PM CDT Office Visit [facility] [address] [place] [phone] Olga Bueno PA 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 factor (HCC) (Primary Dx); High risk medications (not anticoagulants) long-term use; Osteoarthritis of spine with radiculopathy, lumbar region; Age-related osteoporosis without current pathological fracture; Chronic systolic (congestive) heart failure (HCC) 04/01/2025 Telephone [facility] [address] [place] [phone] Olga Goodson Please schedule next Reclast. [...] in Diabetes mellitus (HCC) Diabetes mellitus; Comments: ANNA 01/24/2016 - Hypertension Hypertension Hyperlipidemia Hyperlipidemia; Comments: [facility] 01/24/2016 - Gastroesophageal reflux disease GERD Depression Depression Rheumatoid arthritis ([facility]) Rheum atoid arthritis; Comments: [facility] 01/24/2016 - Anxiety disorder Anxiety Diabetic neuropathy ([facility]) Diabet ic neuropathy; Comments: [facility] 01/24/2016 - Benign prostatic hyperplasia BPH - Benign prostatic hypertrophy; Comments: [facility] 01/24/2016 - History of spinal surgery H/O Sp inal surgery; Comments: [facility] 01/24/2016 - Cancer ([facility]) Obesity Family History Medical History Relation [...] on file Legal Sex Male 3:50 PM AGED OR DISABLED CARER Gender Identity Not on file Sexual Orientation [...] 05/18, 05/18/2019, Additional history exists Influenza Vaccine (#1) 2025 , 08/17/2020, 09/21/2019, Additional history exists Hemoglobin A1C 09/08/2025 03/09/2025, 11/18, 01/09/2021, Additional history exists eGFR 12/24/2025 12/24/2024, 05/2024, [...] on stairs Contact your local community or [facility] for information on exercise, fall prevention programs, or options for improving home safety. Medical Devices Implanted Type Area Utility System Repairer Device Identifier Shelf Expiration Date Model / Serial / Lot Stents Heart Description:cardiac stents Hardware Spine Lumbar Description:lumbar hardware Procedures Procedure Name Priority Date/Time Associated Diagnosis Comments COMPREHENSIVE METABOLIC PANEL Routine 12/24/2024 1:20 PM AGED OR DISABLED CARER 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 factor (HCC) High risk medications (not anticoagulants) long-term use LIPID PANEL Routine 01/04/2020 11:48 AM AGED OR DISABLED CARER HEPATITIS PANEL, ACUTE Routine 8 11:17 AM AGED OR DISABLED CARER HEMOGLOBIN A1C Routine 08/05/2014 3:33 PM CDT from Last 3 Months or Most Recently Relevant to Health Maintenance Results * (ABNORMAL) Comprehensive metabolic panel (12/24/2024 1:20 PM AGED OR DISABLED CARER) Pathologist [facility] Glucose 96 65 - 99 mg/dL [facility] [...] [facility] Blood 12/24/2024 1:20 PM AGED OR DISABLED CARER 12/24/2024 1:21 PM AGED OR DISABLED CARER us [address] LAB BLOOD ORDERABLES Fin al Result [facility] [address] [place] [phone] * (ABNORMAL) Lipid panel (01/04/2020 11:48 AM AGED OR DISABLED CARER) Cholesterol 155 <200 mg/dL [facility] [place] HDL 50 > OR = 40 mg/dL [facility] [place] Triglycerides 355(H) <150 mg/dL [facility] [place] Comment: If a non-fasting specimen was collected, consider repeat triglyceride testing on a fasting specimen if clinically indicated. Darshan et al. J. of Clin. Lipidol. 2015;9:129-169. LDL 62 mg/dL (calc) [facility] [place] Comment: Reference range: <100 Desirable range <100 mg/dL for primary prevention; <70 mg/dL for patients with CHD or diabetic patients with > or = 2 CHD risk factors. LDL-C is now calculated using the Girma-Rachel calculation, which is a validated novel method providing better accuracy than the Friedewald equation in the estimation of LDL-C. Girma YING et al. GINA. 2013;310(19): 6032-9236 (http://education.Avan[employer]i Bio/faq/NSL552) Chol/HDL ratio 3.1 <5.0 (calc) [facility] [place] Non-HDL, (LDL+VLDL) 105 <130 mg/dL (calc) [facility] [place] Comment: For patients with diabetes plus 1 major ASCVD risk factor, treating to a non-HDL-C goal of <100 mg/dL (LDL-C of <70 mg/dL) is considered a therapeutic option. 01/04/2020 11:4 8 AM AGED OR DISABLED CARER 01/04/2020 11:49 AM AGED OR DISABLED CARER Narrative Resulting Agency Comment Performing Organization Information: Site ID: AB Name: [facility]n Pined[facility] Address: [address] [place] [address] [place] [address] Director: Dio Vaca D.O. MPH us [address] LAB BLOOD ORDERABLES Fin al Result [facility] [place] * Hepatitis panel, acute (11/03/2018 11:17 AM AGED OR DISABLED CARER) Hep A IgM NON-REACTI VE NON-REACTI VE [facility] [place] HepBsAg NON-REACTI VE NON-REACTI VE [facility] [place] Hep B core IgM NON-REACTI VE NON-REACTI VE [facility] [place] Hep C Ab NON-REACTI VE NON-REACTI VE [facility] [place] SIGNAL TO CUT-OFF 0.02 <1.00 [facility] [place] 11/03/2018 11:1 7 AM AGED OR DISABLED CARER 11/03/2018 11:18 AM AGED OR DISABLED CARER Narrative Resulting Agency Comment Performing Organization Information: Site ID: AB Name: Mariann Pinedo Address: [address] [place] [address] [place] [address] Director: Dio Vaca D.O., MPH Master Henley III, MD LAB MICROBIOLOGY - GENERAL ORDERABLES Final Result Performing Organization Address City/[facility] Co de Phone Number [facility] [place] from Last 3 Months or Most Recently Relevant to Health Maintenance [place] [address] MEDICARE MEDICARE [facility] MEDICARE [facility] Care Teams Help Desk Rep Relationship Specialty Start Date End Date Eric Pretty MD [address] [facility] [address] [place] [address] PCP - General Internal Medicine 01/28/18 Dominic Young MD [address] [facility] [address] [place] [id number] Consulting Physician Cardiology 01/04/20 Carlos Hernandez MD [address] [place] [address] Consulting Physician Rheumatology 01/27/24
--- OUTSIDE RECORDS SUMMARY | 2025-06-06 11:39 | XMS_ITS | Referral Summary ---
Author Organization [facility] [address] Address [address] [place] [address] Care Team Providers Care Senior Qa Analyst Name Role Phone Eric Pretty MD Primary Care Provider [phone] Dominic Young MD Unavailable Carlos Hernandez MD Unavailable [phone] Encounters Date Type Department Care Team Description 04/08/2025 Telephone [facility] [address] [place] [phone] Natacha Henley 04/01/2025 Telephone [facility] [address] [place] [phone] Olga Goodson Please schedule next Reclast. Thank you! 04/01/2025 1:15 PM CDT Office Visit [facility] [address] [place] [phone] Olga Bueno PA Rheumatoid arthritis of [...] occurs. Assessment & Plan (12/24/2024 12:49 PM TERRAZZO POLISHER HELPER): BMD 06/09/24: LFN 0.761, tscore -1.2 Total [...] occurs. Assessment & Plan (09/23/2024 2:49 PM TERRAZZO POLISHER HELPER): BMD 06/09/24: LFN 0.761, tscore -1.2 Total [...] candidate Assessment & Plan (09/23/2024 1:14 PM TERRAZZO POLISHER HELPER): Xrays 2016: Moderate osteoarthritis of the acromioclavicular [...] walks. Assessment & Plan (12/12/2022 3:07 PM TERRAZZO POLISHER HELPER): R shoulder hurting for the past 2-3 days. May have been triggered by carrying in grocery bags. Hx rotator cuff tears per pt's report. Recommend heat/ice, rest. Will order PT. Consider seeing ortho if not improving Atherosclerotic cardiovascular disease Assessment & Plan (11/12/2022 3:08 PM TERRAZZO POLISHER HELPER): S/p multiple MIs/cardiac arrest, sick sinus, CHF. Has pacemaker. 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 Young. On eliquis and clopidogrel History of DVT of lower extremity 11/12/2022 History of prostate cancer 11/12/2022 Overview (11/12/2022): Treated with radiation in 2017 Chronic pain syndrome 12/16/2021 Type 2 diabetes mellitus wit h diabetic neuropathy, unspecified 11/17/2020 Chronic pain of right knee 06/08/2019 Assessment & Plan (09/23/2024 1:05 PM TERRAZZO POLISHER HELPER): Mild OA on xray from 06/04. Had [...] benefit. Assessment & Plan (01/04/2020 12:03 PM TERRAZZO POLISHER HELPER): Mild OA on xray from 06/04. Had cortisone shots years ago but they spiked his sugars. Had zilretta on 10/29/19 as this formulation causes less systemic steroid effect than regular triamcinolone injection. However, he reported no benefit. Assessment & Plan (10/26/2019 2:15 PM TERRAZZO POLISHER HELPER): Mild OA on xray from 06/04. Had [...] mgmt: [facility] ([facility] C[facility]) in [facility] Assessment & Plan (04/01/2025 4:13 PM CDT): 3 prior back surgeries and still having a lot of pain. Decided against pursuing any more surgery. Has been to pain mgmt in [facility]. Continues to take gabapentin for neuropathic pain. Assessment & Plan (12/24/2024 2:28 PM TERRAZZO POLISHER HELPER): 3 prior back surgeries and still having a lot of pain. Decided against pursuing any more surgery. Has been to pain mgmt in [facility]. Continues to take gabapentin for neuropathic pain. Assessment & Plan (09/23/2024 1:05 PM TERRAZZO POLISHER HELPER): 3 prior back surgeries and still having a lot of pain. Decided against pursuing any more surgery. Has been to pain mgmt in [facility]. Continues to take gabapentin for neuropathic pain. Assessment & Plan (06/22/2024 3:21 PM CDT): 3 prior back surgeries and still having a lot of pain. Decided against pursuing any more surgery. Has been to pain mgmt in [facility]. Continues to take gabapentin for neuropathic pain. Assessment & Plan (03/16/2024 4:37 PM CDT): 3 prior back surgeries and still having a lot of pain. Decided against pursuing any more surgery. Has been to pain mgmt in [facility]. Continues to take gabapentin for neuropathic [...] surgery. Has been to pain mgmt in [facility]. Continues to take gabapentin for neuropathic pain Assessment & Plan (07/28/2023 3:39 PM CDT): 3 prior back surgeries and still having a lot of pain. Decided against pursuing any more surgery. Has been to pain mgmt in [facility]. Continues to take gabapentin for neuropathic pain Assessment & Plan (05/27/2023 4:30 PM CDT): 3 prior back surgeries and still having a lot of pain. Thinking about going back to see nsg for opinion if there is anything else he can do. Has been to pain mgmt in [facility]. Continues to take gabapentin for neuropathic pain Assessment & Plan (11/12/2022 3:05 PM TERRAZZO POLISHER HELPER): 3 prior back surgeries and he does not want to have any additional surgery. Sees pain mgmt in [facility]. Discussed pain stimulator but he deferred for now. Continues to take gabapentin for neuropathic pain Assessment & Plan (01/04/2020 12:04 PM TERRAZZO POLISHER HELPER): No surgery planned. Continue to f/u with pcp and pain mgmt. Encouraged to continue water exercise. Declines PT. Discuss weight loss treatments with pcp. He used to be on duloxetine for mood and chronic pain and can't remember why he stopped. He would be willing to restart this now. Begin 30mg daily. Assessment & Plan (10/26/2019 2:16 PM TERRAZZO POLISHER HELPER): No surgery planned. Continue to f/u with [...] & Plan (08/21/2018 2:15 PM CDT): Saw compound worker who put him back on midodrine. Just [...] Neg quantiferon 12/18 Neg hepatitis 12/18 utd [id number], [id number], yearly flu shot. Had shingrix Had RSV vaccine Had original COVID vaccine series but not additional boosters Assessment & Plan (12/24/2024 12:50 PM TERRAZZO POLISHER HELPER): Neg quantiferon 12/18 Neg hepatitis 12/18 utd [id number], [id number], yearly flu shot. Had shingrix Had RSV vaccine Had original COVID vaccine series but not additional boosters Assessment & Plan (09/23/2024 1:19 PM TERRAZZO POLISHER HELPER): Neg quantiferon 12/18 Neg hepatitis 12/18 utd [id number], [id number], yearly flu shot. Had shingrix Had RSV vaccine Had original COVID vaccine series but not additional boosters Assessment & Plan (06/22/2024 1:27 PM CDT): Neg quantiferon 12/18 Neg hepatitis 12/18 utd hoprbeb40, ruxrimoxh79, yearly flu shot. Recommend shingrix, COVID booster Assessment & Plan (03/16/2024 2:20 PM CDT): Neg quantiferon 12/18 Neg hepatitis 12/18 utd [id number], tgiwoeetk81, yearly flu shot. Recommend shingrix, COVID booster Assessment & Plan (01/27/2024 1:06 PM CDT): Neg quantiferon 12/18 Neg hepatitis 12/18 utd viyhbqd05, iguirnqoo34, yearly flu shot. Recommend shingrix, COVID booster Assessment & Plan (10/28/2023 3:46 PM TERRAZZO POLISHER HELPER): Neg quantiferon 12/18 Neg hepatitis 12/18 utd [id number], pjimvojyk02, yearly flu shot. Recommend shingrix, COVID booster Assessment & Plan (07/28/2023 2:25 PM CDT): Neg quantiferon 12/18 Neg hepatitis 12/18 utd bmjcnaq28, [id number], yearly flu shot. Recommend shingrix, COVID booster Assessment & Plan (05/27/2023 1:55 PM CDT): Neg quantiferon 12/18 Neg hepatitis 12/18 utd ktyqizu80, , flu shot. Recommend shingrix, COVID boosters if not done Assessment & Plan (04/17/2023 4:33 PM CDT): Neg quantiferon 12/18 Neg hepatitis 12/18 utd azzlexd51, , flu shot. Recommend shingrix, COVID boosters if not done Assessment & Plan (12/12/2022 3:06 PM TERRAZZO POLISHER HELPER): Neg quantiferon 12/18 Neg hepatitis 12/18 utd pqopglj65, leolkcpwb82, flu shot. Recommend shingrix, COVID boosters if not done Will advise Evusheld if he goes back on Rituxan in the future Assessment & Plan (11/12/2022 3:05 PM TERRAZZO POLISHER HELPER): Neg quantiferon 12/18 Neg hepatitis 12/18 utd xinxzmf05, oqzoarqng88, flu shot. Recommend shingrix, COVID boosters if not done Will advise Evusheld if he goes back on Rituxan in the future Assessment & Plan (01/04/2020 11:23 AM TERRAZZO POLISHER HELPER): Neg quantiferon 12/18 Neg hepatitis 12/18 utd [id number], [id number], flu shot. Recommend shingrix Assessment & Plan (10/26/2019 11:19 AM TERRAZZO POLISHER HELPER): Neg quantiferon 12/18 Neg hepatitis 12/18 utd sahvzvm04, njozvvrwm69, flu shot. Recommend shingrix Assessment & Plan (08/10/2019 11:37 AM CDT): Neg quantiferon 18 Neg hepatitis 18 Assessment & Plan (06/08/2019 12:09 PM CDT): Neg quantiferon 12/18 Neg hepatitis 12/18 Assessment & Plan (03/26/2019 8:13 AM CDT): Neg quantiferon 18 Neg hepatitis 18 Assessment & Plan (12/24/2018 9:59 PM TERRAZZO POLISHER HELPER): Neg quantiferon 11/03 Neg hepatitis 11/03 Syncope and collapse 08/28/2017 Orthostasis 08/28/2017 Coronary artery disease invo lving [place] coronary artery of [place] heart with angina pectoris 08/28/2017 Assessment & Plan (01/04/2020 12:04 PM TERRAZZO POLISHER HELPER): Pt had abnormal stress test followed by cardiac cath, stenting. Symptoms currently improved. compound worker Dr. Young. Requested lipid panel so will [...] Overview (02/21/2017): Seasonal allergies Rheumatoid [facility] with negative rheumatoid factor 05/06/2011 [...] needed Assessment & Plan (12/24/2024 2:28 PM TERRAZZO POLISHER HELPER): cdai = 33, high Was not seen [...] needed Assessment & Plan (09/23/2024 2:48 PM TERRAZZO POLISHER HELPER): cdai = 17, moderate Was not seen [...] weeks Assessment & Plan (10/28/2023 3:45 PM TERRAZZO POLISHER HELPER): cdai = 10, low, improving Was not [...] month Assessment & Plan (12/12/2022 3:05 PM TERRAZZO POLISHER HELPER): cdai = 27, high Last seen in [...] month Assessment & Plan (11/12/2022 3:10 PM TERRAZZO POLISHER HELPER): cdai = 32, high Last seen in [...] month Assessment & Plan (01/04/2020 11:21 AM TERRAZZO POLISHER HELPER): cdai = 26, high Pt received first [...] months Assessment & Plan (10/26/2019 2:17 PM TERRAZZO POLISHER HELPER): cdai = 30 Pt received first Rituxan [...] today. Assessment & Plan (12/24/2018 9:58 PM TERRAZZO POLISHER HELPER): cdai = 13, low-moderate Pt received first [...] doing. Assessment & Plan (10/26/2018 9:41 AM TERRAZZO POLISHER HELPER): High cdai. Patient has been having more [...] on file Legal Sex Male 3:50 PM TERRAZZO POLISHER HELPER Gender Identity Not on file Sexual [...] home safety. Medical Devices Implanted Type Area Unhairing Inspector Device Identifier Shelf Expiration Date Model / Serial / Lot Stents Heart Description:cardiac stents Hardware Spine Lumbar Description:lumbar hardware Procedures Procedure Name Priority Date/Time Associated Diagnosis Comments COMPREHENSIVE METABOLIC PANEL Routine 12/24/2024 1:20 PM TERRAZZO POLISHER HELPER 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 factor (HCC) High risk medications (not anticoagulants) long-term use LIPID PANEL Routine 01/04/2020 11:48 AM TERRAZZO POLISHER HELPER HEPATITIS PANEL, ACUTE Routine 8 11:17 AM TERRAZZO POLISHER HELPER HEMOGLOBIN A1C Routine 08/05/2014 3:33 PM CDT from Last 3 Months or Most Recently Relevant to Health Maintenance Results * (ABNORMAL) Comprehensive metabolic panel (12/24/2024 1:20 PM TERRAZZO POLISHER HELPER) Pathologist [facility] Glucose 96 65 - [...] [facility] Blood 12/24/2024 1:20 PM TERRAZZO POLISHER HELPER 12/24/2024 1:21 PM TERRAZZO POLISHER HELPER [address] LAB BLOOD ORDERABLES Fin al Result MARIANN Pinedo [address] [id number] * (ABNORMAL) Lipid panel (01/04/2020 11:48 AM TERRAZZO POLISHER HELPER) Cholesterol 155 <200 mg/dL [facility] [place] HDL 50 > OR = 40 mg/dL [facility] [place] Triglycerides 355(H) <150 mg/dL [facility] [place] Comment: If a non-fasting specimen was collected, consider repeat triglyceride testing on a fasting specimen if clinically indicated. Darshan et al. J. of Clin. Lipidol. 2015;9:129-169. LDL 62 mg/dL (calc) [facility] [place] Comment: Reference range: [...] LDL-C. Girma SS et al. GINA. 2013;310(19): 2621-9105 (http://education.[employer]/faq/VQF144) Chol/HDL ratio 3.1 <5.0 (calc) [facility] [place] Non-HDL, (LDL+VLDL) 105 <130 mg/dL (calc) [facility] [place] Comment: For patients with diabetes plus 1 major ASCVD risk factor, treating to a non-HDL-C goal of <100 mg/dL (LDL-C of <70 mg/dL) is considered a therapeutic option. 01/04/2020 11:4 8 AM TERRAZZO POLISHER HELPER 01/04/2020 11:49 AM TERRAZZO POLISHER HELPER Narrative Resulting Agency Comment Performing Organization Information: Site ID: [id number] Name: Mariann Pinedo Address: [address] [phone] Director: Dio Vaca D.O., MPH us [address] LAB BLOOD ORDERABLES Fin al Result Performing Organization Address City/State/[facility] Co de Phone Number [facility] [place] * Hepatitis panel, acute (11/03/2018 11:17 AM TERRAZZO POLISHER HELPER) Hep A IgM NON-REACTI VE NON-REACTI VE [facility] [place] HepBsAg NON-REACTI VE NON-REACTI VE [facility] [place] Hep B core IgM NON-REACTI VE NON-REACTI VE [facility] [place] Hep C Ab NON-REACTI VE NON-REACTI VE [facility] [place] SIGNAL TO CUT-OFF 0.02 <1.00 [facility] [place] 11/03/2018 11:1 7 AM TERRAZZO POLISHER HELPER 11/03/2018 11:18 AM TERRAZZO POLISHER HELPER Narrative Resulting Agency Comment Performing Organization Information: Site ID: [id number] Name: Mariann Pinedo Address: [address] [place] [address] [place] [phone] Director: Dio Vaca D.O., MPH us Master Henley III, MD LAB MICROBIOLOGY - GENERAL ORDERABLES Final Result Performing Organization Address [facility] Co de Phone Number [facility] [place] from Last 3 Months or Most Recently Relevant to Health [place] [address] MEDICARE MEDICARE [facility] MEDICARE [facility] Care Teams Senior Qa Analyst Relationship Specialty Start Date End Date Eric Pretty MD [address] [facility] [address] [place], [place] [phone] PCP - General Internal Medicine 01/28/18 Dominic Young MD [address] [facility] [address] [place] [address] Consulting Physician Cardiology 01/04/20 Carlos Hernandez MD [address] [place] [address] Consulting Physician Rheumatology 01/27/24
--- OUTSIDE RECORDS SUMMARY | 2025-06-06 11:39 | XMS_ITS | Clinical Summary ---
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 Active pantoprazole (PROTONIX) 40 mg Tablet, Delayed Release (E.C.) Take 40 mg by mouth daily. Active empagliflozin (JARDIANCE) 10 mg tablet Take 25 mg by mouth daily in the morning. Pt taking 25 mg daily Active cholecalcifero l, vitamin D3, 1,000 unit Take 25 Units by mouth daily. Active apixaban (ELIQUIS) 5 mg tablet Take 5 mg by mouth 2 times daily. Active predniSONE 5 mg tablet Take 5 mg by mouth daily with breakfast. 023 Active folic acid (FOLVITE) 1 mg tablet Take 1,000 mcg by mouth daily. 023 Active nitroglycerin (NITROSTAT) 0.6 mg Tablet, Sublingual DISSOLVE ONE TABLET UNDER THE TONGUE EVERY 5 MINUTES NEEDED FOR CHEST PAIN. DO NOT EXCEED A TOTAL OF 3 DOSES IN 15 MINUTES 30 Tablet 2 024 Active clopidogreL (PLAVIX) 75 mg Tablet Take 1 tablet by mouth once daily 90 Tablet 2 10/07/2 024 Active ferrous sulfate 325 mg (65 mg iron) tablet Take 1 Tablet (325 mg) by mouth daily. 90 Tablet Active metoprolol succinate (TOPROL XL) 25 mg Extended Release 24 hour tablet Take 0.5 Tablets (12.5 mg) by mouth daily. 45 Tablet 1 Active Additional Information Patient not taking.Reported on 05/31/2025 HumuLIN-R U-500, Conc, Kwikpen 500 unit/mL (3 mL) pen INJECT 100 UNITS SUBCUTANEOUSLY BEFORE BREAKFAST, AND 35 UNITS BEFORE DINNER. Active fesoterodine SR 24 hour (TOVIAZ) 8 mg tablet Take 8 mg by mouth. Active acetaminophen (TYLENOL) 325 mg tablet Take 2 Tablets (650 mg) by mouth every 6 hours as needed for Other (See Comment) (See admin instructions). Active bisacodyL (DULCOLAX) 5 mg Delayed Release tablet Take 1 Tablet (5 mg) by mouth 1 time daily as needed for Constipation. Active Additional Information Patient not taking.Reported on 05/31/2025 methotrexate (RHEUMATREX) 2.5 mg Tablet Take 4 x 2.5 mg tabs in the AM and PM once weekly on Friday Active sacubitriL-hilda sartan (ENTRESTO) 24-26 mg Tablet Take 1 Tablet by mouth 2 times daily. Active Additional Information Patient not taking.Reported on 05/31/2025 tiZANidine (ZANAFLEX) 2 mg Tablet Take 1 Tablet (2 mg) by mouth every 8 hours as needed for Spasm (back pain). Active Additional Information Patient not taking.Reported on 05/31/2025 QUEtiapine (SEROquel) 25 mg tablet Take 1 Tablet (25 mg) by mouth daily after supper. Active Additional Information Patient not taking.Reported on 05/31/2025 QUEtiapine (SEROquel) 25 mg tablet Take 1 Tablet (25 mg) by mouth 2 times daily as needed for Other (See Comment) (restlessness, agitation). Active Additional Information Patient not taking.Reported on 05/31/2025 polyethylene glycol (MIRALAX) 17 gram Powder in Packet Take 1 Packet (17 Grams) by mouth 1 time daily as needed for Constipation. Active mirtazapine (REMERON) 15 mg tablet Take 1 Tablet (15 mg) by mouth daily at bedtime. Active Additional Information Patient not taking.Reported on 05/31/2025 insulin lispro (HumaLOG,ADMEL OG) 100 unit/mL pen syringe Inject 5 Units by subcutaneous injection 3 times daily with meals. Active insulin lispro (HumaLOG,ADMEL OG) 100 unit/mL pen syringe Inject 0-18 Units by subcutaneous injection 3 times daily with meals. Give when NPO or WITH MEAL. CONTACT PHYSICIAN/SHARYN - If blood sugar greater than 250 mg/dL - If blood sugar greater than 180 mg/dL for two consecutive readings High-Dose Meal Correction: Less than or equal to 180 = no correctional insulin 181 - 200 = give and/or add 3 units 201 - 250 = give and/or add 6 units 251 - 300 = give and/or add 9 units 301 - 350 = give and/or add 12 units 351 - 400 = give and/or add 15 units 401 and greater = give and/or add 18 units Active insulin glargine (LANTUS) 100 unit/mL pen syringe Inject 18 Units by subcutaneous injection daily at bedtime. Active Additional Information Patient not taking.Reported on 05/31/2025 HYDROcodone-ac etaminophen (NORCO) 5-325 mg tabletIndicati ons:Rheumatoid arthritis, involving unspecified site, unspecified whether rheumatoid factor present ([facility]) Take 1 Tablet by mouth every 6 hours as needed for Pain. Max Daily Amount: 4 Tablets 20 Tablet Active atorvastatin (LIPITOR) 40 mg tablet Take 1 Tablet (40 mg) by mouth daily. 90 Tablet 1 Active atorvastatin (LIPITOR) 40 mg tablet Take 40 mg by mouth daily. 2024 Discontinued(R eorder) methotrexate (RHEUMATREX) 2.5 mg Tablet Taking 6 tablets once a week 022 2024 Discontinued sacubitriL-hilda sartan (ENTRESTO) 24-26 mg Tablet Take 1 Tablet by mouth 2 times daily. 200 Tablet 3 025 2024 Discontinued torsemide (DEMADEX) 5 mg tablet Take 1 Tablet (5 mg) by mouth 1 time daily as needed for Other (See Comment) (fluid retention). 30 Tablet 1 025 2024 Additional Information Patient taking differently: 10 mgOralDAILY, Reported on 05/07/2025 Active Problems Patient Care Coordination No te Formatting of this note migh t be different from the original. Dr. Dominic Young - Contracts Analyst () Problem Noted Date Diagnosed Date Diabetes mellitus with hyperglycemia 05/08/2025 Normocytic anemia 05/08/2025 Hx of atrioventricular node ablation 03/17/2025 Status post biventricular pacemaker 03/17/2025 History of falling 03/17/2025 Presence of automatic (implantable) cardiac defi brillator 03/11/2025 Permanent atrial fibrillation 03/10/2025 NICM (nonischemic cardiomyopathy) 03/09/2025 Atrial flutter with rapid ventricular response 0 03/09/2025 Chronic pain syndrome 12/16/2021 LV dysfunction 12/16/2021 Essential hypertension 12/16/2021 Personal history of DVT (deep vein thrombosis) 0 12/16/2021 Type 2 diabetes mellitus wit h diabetic polyneuropathy, with long-term current use of insulin 12/06/2021 Protein-calorie malnutrition, severe 01/23/2021 Osteoarthritis of spine with radiculopathy, lumb ar [...] to restart this now. Begin 30mg daily. Tachy-michael syndrome 08/28/2017 Neuropathy 01/04/2013 Overview (05/30/2021): Neuropathy Seasonal allergic rhinitis 01/04/2013 Overview (05/30/2021): Seasonal allergies Rheumatoid arthritis 05/06/2011 Atherosclerosis of coronary artery CAD (coronary artery disease) Acute metabolic encephalopathy Hyperlipidemia GERD (gastroesophageal reflux disease) Atrial flutter POONAM (obstructive sleep apnea) History of TIA (transient ischemic attack) and s troke Situational mixed anxiety and depressive disorde r Resolved Problems Problem Noted Date Diagnosed Date Resolved Date Nausea in adult 05/08/2025 05/10/2025 Constipation 05/08/2025 05/10/2025 Fall 03/17/2025 05/10/2025 Generalized muscle weakness 03/17/2025 05/10/2025 Paroxysmal atrial fibrillation with RVR 03/10/2025 05/10/2025 Non-ST elevation myocardial infarction (NSTEMI) 12/16/2021 01/11/2022 Elevated troponin 12/11/2021 01/11/2022 Overview (12/12/2021): Added automatically from request for surgery [id number] Generalized muscle weakness 01/22/2021 05/30/2021 Severe obesity (BMI 35.0-39. 9) with comorbidity 01/22/2021 05/30/2021 Chronic pain of right knee 06/08/2019 0 05/10/2025 Overview (05/30/2021): Last Assessment & Plan: Mild OA on xray from 06/04. Had cortisone shots years ago but they spiked his sugars. Had zilretta on 10/29/19 as this formulation causes less systemic steroid effect than regular triamcinolone injection. However, he reported no benefit. Contusion of left lower leg 03/25/2019 05/10/2025 Overview (05/30/2021): Last Assessment & Plan: Hit his L lower leg getting into truck about a week ago, had swelling, bruising, and still very tender. Will xray to r/o fx. Weakness 02/02/2019 05/10/2025 Overview (05/30/2021): Tiredness Last Assessment & Plan: May be due to many issues including uncontrolled DM, RA, and other things. F/u with pcp High risk medications (not a nticoagulants) long-term use 01/29/2018 05/10/2025 Overview (05/30/2021): Hyperlipidemia associated with type 2 diabetes mellitus Type 2 diabetes mellitus with diabetic neuropathy Neg quantiferon 11/03 Neg hepatitis 11/03 Last Assessment & Plan: Neg quantiferon 11/03 Neg hepatitis 11/03 utd , [id number], flu shot. Recommend shingrix Hyperlipidemia associated wi th type 2 diabetes mellitus 08/28/2017 05/10/2025 Hypotension 08/28/2017 05/10/2025 Overview (05/30/2021): Last Assessment & Plan: Saw furnace brazer who put him back on midodrine. Just started this today. Had episode of lightheadedness coming into the office today, better with sitting. Also describes vertigo sometimes and I suggested this might represent a different problem, discuss with pcp. Syncope and collapse 08/28/2017 025 Coronary artery disease invo lving tlingit & haida coronary artery of tlingit & haida heart with angina pectoris 08/28/2017 05/10/2025 Overview (05/30/2021): Last Assessment & Plan: Pt had abnormal stress test followed by cardiac cath, stenting. Symptoms currently improved. furnace brazer Dr. Young. Requested lipid panel so will add to our labs and send results Abnormal liver enzymes 03/28/201405/10 Overview (05/30/2021): Elevated liver enzymes Low back pain 08/10/2013 05/10/2025 Overview (05/30/2021): Atypical chest pain Low back pain Last Assessment & Plan: Seeing pain mgmt. Has had injections without relief. Pt inquired about CBD oil but we discussed it is not approved and there is limited data to support its use at the present time. Lumbar radiculopathy 05/06/2011 021 Chronic systolic (congestive) heart failure 11/17/2000 05/10/2025 C. difficile diarrhea 2020 Asystole 01/11/2022 Paroxysmal A-fib 05/10/2025 Ischemic cardiomyopathy 04/18 Dysphagia 01/11/2022 Acute cystitis without hematuria 01/11/2022 Delirium 05/10/2025 Cardiac arrest 01/11/2022 Physical debility 05/10/2025 Advance care planning 2024 Encounter for palliative care 05/10/2025 Acute bacterial conjunctivitis of both eyes 01/11/2022 Encounters Date Type Department Care Team Description 06/06/2025 Telephone [facility] AT [address] [place] [address] Cuauhtemoc Saez DNP Medication Refill 06/03/2025 Refill [facility] AT [address] [place] [address] Cuauhtemoc Saez DNP 06/03/2025 Telephone [facility] AT [address] [place] [address] Cuauhtemoc Saez DNP Lab Results 06/03/2025 Orders Only [facility] AT [address] [place] [address] Casie Dietz RN 06/02/2025 Results Follow-Up [facility] AT [address] [place] [address] Casie Dietz RN BASIC METABOLIC PANEL 05/31/2025 2:15 PM CDT Office Visit [facility] AT [address] [place] [address] Cuauhtemoc Saez DNP Atrial flutter with rapid ventricular response (CMS/HCC) (Primary Dx); Longstanding persistent atrial fibrillation (CMS/HCC); Hx of atrioventricular node ablation; 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; prison (current) use of anticoagulants; Mixed hyperlipidemia; Benign hypertension 05/25/2025 Telephone [facility] AT [address] [place] [address] Cuauhtemoc Saez DNP Medication Concerns 05/24/2025 Telephone [facility] AT [address] [place] [address] Alethea Huffman, CUTLERY GRINDER Edema 05/07/2025 2:55 PM CDT - 05/18/2025 3:07 PM CDT Hospital Encounter [facility] Trauma and Surgery [address] [place] [address] Minal Villegas MD Hassan, Zahra Fatima, MD Counts, Lauren Rae, MD Dundoo, Gayathri, MD Austin, Karen, MD Acute metabolic encephalopathy Discharge Disposition: [facility]sp Fac(SNF) with Medicare Certification in Anticipation of Skilled Care 05/07/2025 Travel 05/04/2025 3:08 AM CDT - 05/06/2025 3:40 PM CDT Hospital Encounter [facility] Neuroscience [address] [place] [address] Akosua Bourgeois MD Counts, Lauren Rae, MD Acute metabolic encephalopathy Discharge Disposition: Rehab Facility IP 05/02/2025 Telephone [facility] AT [address] [place] [address] Elver Bazzi NP Medication Question 04/18/2025 2:30 PM CDT Procedure visit [facility] AT [address] [place] [address] NICM (nonischemic cardiomyopathy) (CMS/HCC) (Primary Dx); Encounter for implantable defibrillator reprogramming or check 04/18/2025 Telephone [facility] AT [address] [place] [address] Tani Patel MD Pacemaker issues 04/15/2025 9:00 AM CDT Office Visit [facility] AT [address] [place] [address] Akanksha Cueva NP NICM (nonischemic cardiomyopathy) (CMS/HCC) (Primary Dx); 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; Longstanding persistent atrial fibrillation (CMS/HCC); Mixed hyperlipidemia 04/15/2025 8:30 AM CDT Procedure visit [facility] AT [address] [place] [address] NICM (nonischemic cardiomyopathy) (CMS/HCC) (Primary Dx); 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; Longstanding persistent atrial fibrillation (CMS/HCC) 04/15/2025 Telephone [facility] AT [address] [place] [address] Tani Patel MD Symptoms 04/15/2025 Telephone [facility] At [address] [place] [address] Akanksha Cueva NP Fatigue; Low Blood Pressure 04/05/2025 1:00 PM CDT Office Visit [facility] At [address] [place] [address] Erica Vizcarra NP Coronary artery disease involving tlingit & haida coronary artery of tlingit & haida heart without angina pectoris (Primary Dx); Benign hypertension; Paroxysmal atrial fibrillation with RVR (CMS/HCC) 03/31/2025 Results Follow-Up [facility] At [address] [place] [address] Yareli Kelsey RN BASIC METABOLIC PANEL, CBC WITH DIFFERENTIAL, BASIC METABOLIC PANEL 03/24/2025 10:30 AM CDT Office Visit [facility] At [address] [place] [address] Erica Vizcarra NP Chronic HFrEF (heart failure with reduced ejection fraction) (CMS/HCC) (Primary Dx); Coronary artery disease involving tlingit & haida coronary artery of tlingit & haida heart without angina pectoris; Mixed hyperlipidemia 03/17/2025 10:13 AM CDT - 03/19/2025 3:56 PM CDT Hospital Encounter [facility] Cardiac Progressive Care Unit [address] [place] [address] Aravind Jones DO Burke, Matthew Frederic, MD Khan, Mafaza, MD Fall Discharge Disposition: Home Health Care [facility] [place] 03/17/2025 10:00 AM CDT Procedure visit [facility] At [address] [place] [address] Cardiac pacemaker in situ (Primary Dx) 03/17/2025 9:30 AM CDT Procedure visit [facility] AT [address] [place] [address] Tachy-michael syndrome (CMS/HCC) (Primary Dx); Pacemaker 03/15/2025 External Device Data STL ABSTRACTION Provider, Abstract 03/15/2025 External Device Data STL ABSTRACTION Provider, Abstract 03/15/2025 External Device Data STL ABSTRACTION Provider, Abstract 03/11/2025 3:08 PM CDT Anesthesia Event [facility] Extract Mixer [address] [place] [phone] Damion Agrawal MD Thro, Andrew, AA-C 03/11/2025 2:35 PM CDT - 03/11/2025 4:46 PM CDT Surgery [facility] Extract Mixer [address] [place] [address] Chivo Moreland MD Pacemaker upgrade to BiV ICD and AV node ablation 03/09/2025 4:14 PM CDT - 03/12/2025 4:39 PM CDT Hospital Encounter [facility] Cardiac Progressive Care Unit [address] [place] [phone] Margaret Crawford MD Ullery, Brian, MD Baig, Kamran A, MD Weitzel, MD Vinay Mane Anne, MD Burke, MD Robe Gregg Qin, MD Atrial flutter (CMS/HCC) Discharge Disposition: Home or Self Care 03/09/2025 3:00 PM CDT Procedure visit [facility] AT [address] [place] [address] Tachy-michael syndrome (CMS/HCC) (Primary Dx); Pacemaker 03/09/2025 3:00 PM CDT Office Visit [facility] AT [address] [place] [address] Tani Patel MD Atrial flutter with rapid ventricular response (CMS/HCC) (Primary Dx); Cardiac pacemaker in situ; Tachy-michael syndrome (CMS/HCC); Nonischemic cardiomyopathy (CMS/HCC) 03/09/2025 Travel from Last 3 Months Immunizations Immunization Administration [...] on file 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 Gender Identity Not on file Sexual Orientation Not on file Last Filed Vital Signs Vital Sign Reading Time Taken Comments Blood Pressure 112/60 05/31/2025 2:13 PM CDT Pulse 81 05/31/2025 2:13 PM CDT Temperature 36.4 C (97.5 F) 05/18/2025 12:05 PM CDT Respiratory Rate 18 05/18/2025 12:05 PM CDT Oxygen Saturation 93% 05/31/2025 2:13 PM CDT Inhaled Oxygen Concentration - - Weight 121.6 kg (268 lb) 05/31/2025 2:13 PM CDT Height 180.3 cm (5' 11) 05/31/2025 2:13 PM CDT Body Mass Index 37.38 05/31/2025 2:13 PM CDT Plan of Treatment Upcoming Encounters Date Type Department Care Team (Late st Contact Info) Description 07/20/2025 8:00 AM CDT Procedure visit [facility] AT [address] [place] [address] 07/26/2025 2:00 PM CDT Office Visit [facility] AT [place] [address] [facility] [address] [place] [phone] Cuauhtemoc Saez DNP [address] [place] [address] [address] [place] [phone] 08/08/2025 12:00 PM CDT Office Visit [facility] At [address] [place] [address] Dominic Young MD [address] [place] [address] [address] [place] [address] Health Maintenance Due Date Last [...] ANNUAL 05/21/2023 05/21/2022, 2020 INFLUENZA VACCINE (#1) 2025 , 08/17/2020, 09/21/2019, Additional history exists DIABETES HBA1C Q 6 MONTHS 09/08/20252024, 09/14/2024, 06/14/2024, Additional history exists PNEUMOCOCCAL VACCINE 50+ YEARS Completed 01/20/2017 , 08/15/2015 FIT/FOBT Q 1 year Discontinued 01/21/2021 COLORECTAL SCREENING Discontinued 12/26/2022, 12/26/2022, 03/18/2018 Colorectal Cancer Screening Discontinued FIT-DNA Q 3 years Discontinued Flex Sig/CT Colonography Q 5 years Discontinued Medical Devices Implanted Type Area Shoe Parts Molder Device Identifier Shelf Expiration Date Model / Serial / Lot Sealant Duraseal 5ml - [id number] Implanted:Qty: 1 on 01/02/2021 by Jarvis Martell MD at [facility] Biological Spine Lumbar [employer]ULA 02/14/2022-2049 / / [id number] Eit T/Plif, H 13mm, 4' , 12/08 Implanted:Qty: 1 on 01/02/2021 by Jarvis Martell MD at [facility] Cage Spine Lumbar J&J- [employer]PU[employer] 08/16/2024 [id number] / / [id number] Description:All Depuy spinal hardware was processed on requisition, 604702. Hemostatic Surgiflo 8ml W/Thrombin 2994 - [id number] Implanted:Qty: 1 on 01/02/2021 by Jarvis Martell MD at [facility] Hemostatic Spine Lumbar J&J- ETHICON INC 11/16/2021 2994 / / [id number] Hemostat Gaby Surg Mph Pwd 3gm [id number] - [id number] Implanted:Qty: 1 on 12/14/2021 by Aki Mccray MD at [facility] Hemostatic Left: Chest CR BARD- DAVOL INC 05/14/2026 [id number] / / [id number] Hemostat Gaby Ah Powder 3gm [id number] - [id number] Implanted:Qty: 1 on 03/11/2025 by Chivo Moreland MD at [facility] Hemostatic Left: Chest BARD DAVOL [id number] 09/13/2029 [id number] / / [id number] Lead Pcmkr Tendril St Optm 2087tc-52 - [id number] Implanted:Qty: 1 on 12/14/2021 by Aki Mccray MD at [facility] Lead N/A: Heart [facility] 11/16/20242087TC-52 / [id number] / Lead Pcmkr Tendril St Optm -58 - [id number] Implanted:Qty: 1 on 12/14/2021 by Aki Mccray MD at [facility] Lead N/A: Heart [facility] 07/17/2024 2088TC/58 / [id number] / Lead Quartet Lt Quad 86cm 1458q-86 - [id number] Implanted:Qty: 1 on 03/11/2025 by Chivo Moreland MD at [facility] Lead N/A: Heart [facility] [facility] [employer] [id number] 11/16/2027 1458Q/86 / [id number] / Rene Xpdm Crv W/Line 95mm - Ssterilized 12/20/2020 Implanted:Qty: 1 on 01/02/2021 by Jarvis Martell MD at [facility] Rene Spine Lumbar J&J- [employer]PU[employer] 5 / STERILIZED 12/20/2020 / LOAD 110 Rene Xpdm Crv W/Line 85mm - Ssterilized 12/20/2020 Implanted:Qty: 1 on 01/02/2021 by Jarvis Martell MD at [facility] Rene Spine Lumbar J&J- [employer] 5 / STERILIZED 12/20/2020 / LOAD 110 Log [id number] - Depuy Expedium 5.5 Spine Tray - 1 - Screw Exp Poly 6x40mm Implanted:Qty: 2 on 05/06/2011 at [facility] Screw J&J- [employer]PU[employer] 0 / / Setscrew Inner - Ssterilized 12/20/2020 Implanted:Qty: 6 on 01/02/2021 by Jarvis Martell MD at [facility] Screw Spine Lumbar J&J- [employer]PU[employer] 0 / STERILIZED 12/20/2020 / LOAD 110 Screw Exp Poly 7x45mm - Ssterilized 12/20/2020 Implanted:Qty: 4 on 01/02/2021 by Jarvis Martell MD at [facility] Screw Spine Lumbar J&J- [employer]PU[employer] 5 / STERILIZED 12/20/2020 / LOAD 110 Synergy- 020 Implanted:11/17 by Dominic Young MD (Quantity not on file) Stent 12/08/2020 / / [id number] Description:placed in the RC A Stent Synergy Xd 5.0x12mm Evrlms Elut [id number] - [id number] Implanted:Qty: 1 on 12/13/2021 at [facility] Stent N/A: Coronary [employer] 12/18/2022 [id number] / / [id number] Putty Dbx Dbm 5c [id number] - [id number] Implanted:Qty: 1 on 01/02/2021 by Jarvis Martell MD at [facility] Tissue Spine Lumbar MUSCULOSKELETAL TRANSPLANT FOU 09/04/2021 [id number] / [id number] / Healos Implanted:Qty: 1 on 05/06/2011 at [facility] 05/17/2011 [id number] / / [id number] Description:depuy spine [place] Cage Implanted:Qty: 1 on 05/06/2011 at [facility] Description:concord bullet c age, load#24 05-01-2011 Durata 65 Cm Implanted:Qty: 1 on 03/11/2025 by Chivo Moreland MD at [facility] N/A: Heart 01/14/2027 TITUS-712 0 / [id number] / [place] Hf Defibrillator Implanted:Qty: 1 on 03/11/2025 by Chivo Moreland MD at [facility] Left: Chest 04/16/2026 TITUS-CDH [id number] / [id number] / Description:per Titus Rep - NOT MRI safe. Patient has an abadoned lead from another device -cole 05/04/25 Explanted Type Area Shoe Parts Molder Device Identifier Shelf Expiration Date Model / Serial / Lot Pacemaker Assurity-2 Mri [id number] - [id number] Implanted:Qty : 1 on 12/14/2021 by Aki Mccray MD at [facility] Pacemaker Left: Chest [facility] [facility] [employer] 05/16/2023 [id number] / [id number] / [id number] Description:Assurity MRI pacemaker and Tendril MRI and Tendril STS pacing leads allow full body, 1.5T and 3T MRI scans.* When the Assurity MRI pacemaker is combined with Tendril STS or Tendril MRI pacing leads there is no wait time between implant and MRI scan readiness.-cole 12/20/21 EXPLANTED -see new implant tab -NOW HAS ABANDONED LEAD - NOT MRI SAFE -cole 05/04/25 Log [id number] - Depuy Expedium 5.5 Spine Tray - 1 - Rene Xpdm 5.5 Ti Prebnt 45mm [id number] Implanted:Qty : 1 on 05/06/2011 at [facility] Explanted:Qty : 1 on 01/02/2021 by Jarvis Martell MD at [facility] Rene [employer]- [employer] [id number] / / Log [id number] - Depuy Expedium 5.5 Spine Tray - 1 - Screw Set Inner [id number] Implanted:Qty : 2 on 05/06/2011 at [facility] Explanted:Qty : 2 on 01/02/2021 by Jarvis Martell MD at [facility] Screw [employer]- MED PROD 1797-02-0 00-OLD / / Description:load#32 05-04-20 11 Procedures Procedure Name Priority Date/Time Associated Diagnosis Comments BASIC METABOLIC PANEL Routine 06/01/2025 10:07 AM CDT Atrial flutter with rapid ventricular response (CMS/HCC) POC GLUCOSE Routine 05/18/2025 12:29 PM CDT POC GLUCOSE Routine 05/18/2025 8:10 AM CDT POC GLUCOSE Routine 05/18/2025 7:44 AM CDT POC GLUCOSE Routine 05/17/2025 9:31 PM CDT POC GLUCOSE Routine 05/17/2025 5:19 PM CDT TELEMETRY REPORT 05/17/2025 1:24 PM CDT TELEMETRY REPORT 05/17/2025 1:10 PM CDT POC GLUCOSE Routine 05/17/2025 1:06 PM CDT POC GLUCOSE Routine 05/17/2025 8:51 AM CDT POC GLUCOSE Routine 05/16/2025 11:19 PM CDT POC GLUCOSE Routine 05/16/2025 6:55 PM CDT POC GLUCOSE Routine 05/16/2025 1:13 PM CDT POC GLUCOSE Routine 05/16/2025 9:43 AM CDT MAGNESIUM LEVEL Routine 05/16/2025 7:01 AM CDT CBC WITH DIFFERENTIAL Routine 05/16/2025 7:01 AM CDT BASIC METABOLIC PANEL Routine 05/16/2025 7:01 AM CDT POC GLUCOSE Routine 05/15/2025 10:34 PM CDT POC GLUCOSE Routine 05/15/2025 6:03 PM CDT POC GLUCOSE Routine 05/15/2025 4:37 PM CDT POC GLUCOSE Routine 05/15/2025 11:53 AM CDT POC GLUCOSE Routine 05/15/2025 8:43 AM CDT MAGNESIUM LEVEL Routine 05/15/2025 7:06 AM CDT CBC WITH DIFFERENTIAL Routine 05/15/2025 7:06 AM CDT BASIC METABOLIC PANEL Routine 05/15/2025 7:06 AM CDT POC GLUCOSE Routine 05/14/2025 7:48 PM CDT POC GLUCOSE Routine 05/14/2025 5:08 PM CDT POC GLUCOSE Routine 05/14/2025 2:02 PM CDT POC GLUCOSE Routine 05/14/2025 1:21 PM CDT POC GLUCOSE Routine 05/14/2025 9:08 AM CDT MAGNESIUM LEVEL Routine 05/14/2025 7:50 AM CDT CBC WITH DIFFERENTIAL Routine 05/14/2025 7:50 AM CDT BASIC METABOLIC PANEL Routine 05/14/2025 7:50 AM CDT POC GLUCOSE Routine 05/13/2025 9:02 PM CDT POC GLUCOSE Routine 05/13/2025 4:55 PM CDT POC GLUCOSE Routine 05/13/2025 1:55 PM CDT SENIOR SEARCH MARKETING ANALYST EVALUATE AND TREAT Pending Discharge 05/13/2025 9:34 AM CDT POC GLUCOSE Routine 05/13/2025 7:44 AM CDT MAGNESIUM LEVEL Routine 05/13/2025 4:13 AM CDT CBC WITH DIFFERENTIAL Routine 05/13/2025 4:13 AM CDT BASIC METABOLIC PANEL Routine 05/13/2025 4:13 AM CDT POC GLUCOSE Routine 05/12/2025 8:53 PM CDT POC GLUCOSE Routine 05/12/2025 4:50 PM CDT POC GLUCOSE Routine 05/12/2025 12:52 PM CDT POC GLUCOSE Routine 05/12/2025 9:39 AM CDT SYPHILIS SEROLOGY W/REFLEX Routine 05/12/2025 8:33 AM CDT MAGNESIUM LEVEL Routine 05/12/2025 8:33 AM CDT CBC WITH DIFFERENTIAL Routine 05/12/2025 8:33 AM CDT BASIC METABOLIC PANEL Routine 05/12/2025 8:33 AM CDT ECHOCARDIOGRAM W/ CONTRAST AGENT Pending Discharge 05/12/2025 7:56 AM CDT POC GLUCOSE Routine 05/11/2025 8:32 PM CDT POC GLUCOSE Routine 05/11/2025 5:17 PM CDT POC GLUCOSE Routine 05/11/2025 1:20 PM CDT BLOOD CULTURE Routine 05/11/2025 12:02 PM CDT BLOOD CULTURE Routine 05/11/2025 12:02 PM CDT BLOOD CULTURE Routine 05/11/2025 12:01 PM CDT BLOOD CULTURE Routine 05/11/2025 12:01 PM CDT HIV DETECTION W/REFLX CONFIRMATION Routine 05/11/2025 12:00 PM CDT POC GLUCOSE Routine 05/11/2025 8:40 AM CDT MAGNESIUM LEVEL Routine 05/11/2025 5:39 AM CDT CBC WITH DIFFERENTIAL Routine 05/11/2025 5:39 AM CDT BASIC METABOLIC PANEL Routine 05/11/2025 5:39 AM CDT POC GLUCOSE Routine 05/10/2025 10:35 PM CDT POC GLUCOSE Routine 05/10/2025 6:50 PM CDT EKG 12-LEAD Stat 05/10/2025 4:56 PM CDT POC GLUCOSE Routine 05/10/2025 2:[address] CHEST WO CONTRAST Routine 05/10/2025 1:[address] HEAD CERVICAL SPINE WO CONTRAST Routine 05/10/2025 1:44 PM CDT POC GLUCOSE Routine 05/10/2025 8:59 AM CDT BRAIN NATRIURETIC PEPTIDE, BNP OR PROBNP Routine 05/10/2025 7:08 AM CDT C-REACTIVE PROTEIN Routine 05/10/2025 7: 08 AM CDT CBC WITH DIFFERENTIAL Routine 05/10/2025 7:08 AM CDT BASIC METABOLIC PANEL Routine 05/10/2025 7:08 AM CDT POC GLUCOSE Routine 05/09/2025 10:18 PM CDT POC GLUCOSE Routine 05/09/2025 4:[address] ABDOMEN PELVIS W CONTRAST Stat 05/09/2025 3:27 PM CDT POC GLUCOSE Routine 05/09/2025 12:44 PM CDT CBC WITH DIFFERENTIAL Routine 05/09/2025 11:07 AM CDT BASIC METABOLIC PANEL Routine 05/09/2025 11:07 AM CDT POC GLUCOSE Routine 05/09/2025 8:57 AM CDT POC GLUCOSE Routine 05/08/2025 10:54 PM CDT US ABDOMEN LIMITED Routine 05/08/2025 3: 14 PM CDT TROPONIN 6 HR, 5TH GEN Timed Study 05/08/2025 2:54 PM CDT POC GLUCOSE Routine 05/08/2025 1:39 PM CDT TROPONIN 2 HR, 5TH GEN Timed Study 05/08/2025 10:59 AM CDT POC GLUCOSE Routine 05/08/2025 9:05 AM CDT LIPASE Routine 05/08/2025 8:55 AM CDT BRAIN NATRIURETIC PEPTIDE, BNP OR PROBNP Routine 05/08/2025 8:55 AM CDT TROPONIN BASELINE, 5TH GEN Stat 05/08/2025 8:55 AM CDT CBC WITH DIFFERENTIAL Routine 05/08/2025 8:55 AM CDT BASIC METABOLIC PANEL Routine 05/08/2025 8:55 AM CDT URINALYSIS W/REFLEX MICROSCOPIC Stat 05/08/2025 7:50 AM CDT DRUG SCREEN, URINE Routine 05/08/2025 7: 49 AM CDT RT ASSESS AND TREAT Routine 05/08/2025 1 :15 AM CDT POC GLUCOSE Routine 05/07/2025 11:56 PM CDT XR ABDOMEN 1 VW Stat 05/07/2025 11:40 PM CDT RESPIRATORY PATHOGEN PCR PANEL Stat 05/07/2025 4:48 PM CDT EKG 12-LEAD Stat 05/07/2025 2:23 PM CDT MAGNESIUM LEVEL Routine 05/07/2025 2:11 PM CDT COMPREHENSIVE METABOLIC PANEL Stat 05/07/2025 2:11 PM CDT CBC WITH DIFFERENTIAL Stat 05/07/2025 2:11 PM CDT POC GLUCOSE Routine 05/06/2025 1:08 PM CDT POC GLUCOSE Routine 05/06/2025 8:52 AM CDT POC GLUCOSE Routine 05/05/2025 9:53 PM CDT POC GLUCOSE Routine 05/05/2025 4:53 PM CDT POC GLUCOSE Routine 05/05/2025 12:[address] HEAD WO CONTRAST Routine 05/05/2025 11:11 AM CDT POC GLUCOSE Routine 05/05/2025 10:04 AM CDT CBC WITH DIFFERENTIAL Stat 05/05/2025 9:17 AM CDT BASIC METABOLIC PANEL Stat 05/05/2025 9:17 AM CDT POC GLUCOSE Routine 05/04/2025 11:31 PM CDT GI PATHOGEN PCR PANEL Routine 05/04/2025 7:00 PM CDT POC GLUCOSE Routine 05/04/2025 6:42 PM CDT VITAMIN B12 AND FOLATE Routine 05/04/2025 4:11 PM CDT POC GLUCOSE Routine 05/04/2025 1:25 PM CDT KETONES/BETA HYDROXYBUTYRATE Routine 05/04/2025 9:42 AM CDT TSH Routine 05/04/2025 9:42 AM CDT BLOOD GAS VENOUS Routine 05/04/2025 9:42 AM CDT C-REACTIVE PROTEIN Routine 05/04/2025 9: 42 AM CDT COMPREHENSIVE METABOLIC PANEL Routine 05/04/2025 9:42 AM CDT CBC WITH DIFFERENTIAL Routine 05/04/2025 9:42 AM CDT POC GLUCOSE Routine 05/04/2025 8:40 AM CDT POC GLUCOSE Routine 05/04/2025 4:22 AM CDT DC PROGRAM EVAL, IMPLANT DEVICE CARDVERT/DEFIB,MULTI- LEAD W/IN GLOBAL Routine 04/18/2025 3:01 PM CDT NICM (nonischemic cardiomyopathy) (CMS/HCC) Encounter for implantable defibrillator reprogramming or check DC PRGRMG EVAL IMPLANTABLE IN PERSON MULTI LEAD DFB Routine 04/15/2025 7:57 AM CDT NICM (nonischemic cardiomyopathy) (CMS/HCC) Biventricular ICD (implantable cardioverter-defibr illator) in place Longstanding persistent atrial fibrillation (CMS/HCC) [...] EKG 12-LEAD Stat 03/17/2025 10:25 AM CDT DC PRGRMG EVAL IMPLANTABLE IN PERSON MULTI LEAD [...] WITH DIFFERENTIAL Stat 03/09/2025 4:18 PM CDT DC ECG ROUTINE ECG W/LEAST 12 LDS W/I&R Routine 03/09/2025 3:54 PM CDT Atrial flutter with rapid ventricular response (CMS/HCC) EKG 12-LEAD Stat 03/09/2025 3:54 PM CDT DC PROGRAM EVAL IMPLANTABLE IN PERSN DUAL LD PACER Routine 03/09/2025 3:39 PM CDT Tachy-michael syndrome (CMS/HCC) Pacemaker CRITICAL CARE Routine 03/09/2025 3:33 PM CDT LIPID PANEL Routine 05/21/2022 2:46 PM CDT Benign hypertension Mixed hyperlipidemia POC OCCULT BLOOD 1 CARD Routine 01/21/2021 2:16 PM LICENSING REPRESENTATIVE from Last 3 Months or Most Recently Relevant to Health Maintenance Results * (ABNORMAL) BASIC METABOLIC PANEL (06/01/2025 10:07 AM CDT) Only the most recent of17 resultswithin the time period is included. GLUCOSE 226(H) 65 - 139 mg/dL [facility] Comment: Non-fasting reference interval BUN 24 7 - 25 mg/dL [facility] CREATININE 1.12 0.70 - 1.28 mg/dL [facility] GFR 67 > OR = 60 mL/min/1.7 3m2 [facility] BUN/CREAT RATIO SEE NOTE: 6 - 22 (calc) [facility] Comment: Not Reported: BUN and Creatinine are within reference range. SODIUM 138 135 - 146 mmol/L [facility] POTASSIUM 4.1 3.5 - 5.3 mmol/L [facility] CHLORIDE 98 98 - 110 mmol/L [facility] CO2 30 20 - 32 mmol/L [facility] CALCIUM 8.6 8.6 - 10.3 mg/dL [facility] Comment: FASTING:NO FASTING: NO Test Performed at: [facility] [address] [place] [address] Humberto Byers MD Blood 06/01/2025 10:0 7 AM CDT 06/01/2025 10:07 AM CDT us Cuauhtemoc Saez DNP CHEMISTRY ORDERABLES Fi nal Result [facility] [phone] [facility] [address] [place] [address] * (ABNORMAL) POC GLUCOSE (05/18/2025 12:29 PM CDT) Only the most recent of81 resultswithin the time period is included. GLUCOSE POC 237(H) 74 - 99 mg/dL 05/18/2025 12:29 PM CDT [facility] SPECIMEN SOURCE, GLUCOSE POC Whole Blood 05/18/2025 12:29 PM CDT [facility] Blood, whole 05/18/2025 12:2 9 PM CDT 05/18/2025 12:40 PM CDT Sarahi Allen MD POINT OF CARE TESTING Final Resu lt [facility] [employer] [facility]# [id number] [facility] [place] [address] * TELEMETRY REPORT (05/17/2025 1:24 PM CDT) Only the most recent of6 resultswithin the time period is included. Provider Scanning ECG ORDERABLES Final Result * (ABNORMAL) CBC WITH DIFFERENTIAL (05/16/2025 7:01 AM CDT) Only the most recent of19 resultswithin the time period is included. Pathologist [facility] WBC 5.2 4.0 - 9.8 K/uL 05/16/2025 7:36 AM CDT [facility] RBC 4.78 4.50 - 5.40 M/uL 05/16/2025 7:36 AM CDT [facility] HEMOGLOBIN 14.5 13.6 - 16.5 g/dL 05/16/2025 7:36 AM CDT [facility] HEMATOCRIT 44.7 40.0 - 48.0 % 05/16/2025 7:36 AM CDT [facility] MCV 93.5 82.0 - 99.0 fL 05/16/2025 7:36 AM CDT [employer] MCH 30.3 27.2 - 32.6 pg 05/16/2025 7:36 AM CDT [employer] MCHC 32.4 31.5 - 35.5 g/dL 05/16/2025 7:36 AM CDT [employer] RDW 16.4(H) 11.5 - 14.5 % 05/16/2025 7:36 AM CDT [employer] RDW-STDEV 56.5(H) 37.1 - 48.7 fL 05/16/2025 7:36 AM CDT [employer] PLATELETS 174 140 - 350 K/uL 05/16/2025 7:36 AM CDT [employer] MPV 10.7 9.3 - 12.4 fL 05/16/2025 7:36 AM CDT [employer] [facility] NEUTROPHILS 62 % 05/16/2025 7:36 AM CDT [employer] LYMPHOCYTES 17 % 05/16/2025 7:36 AM CDT [employer] - . [facility] MONOCYTES 16 % 05/16/2025 7:36 AM CDT [employer] - . [facility] EOSINOPHILS 4 % 05/16/2025 7:36 AM CDT [employer] - . [facility] BASOPHILS 1 % 05/16/2025 7:36 AM CDT [employer] [facility]ORATORY SERVICES - . [facility] IMMATURE GRANULOCYTES 0 % 05/16/2025 7:36 AM CDT [employer] - . [facility] NEUTROPHIL ABSOLUTE 3.21 1.90 - 7.00 K/uL 05/16/2025 7:36 AM CDT [employer] - . [facility] LYMPHOCYTE ABSOLUTE 0.86 0.70 - 4.50 K/uL 05/16/2025 7:36 AM CDT [employer] - . [facility] MONOCYTE ABSOLUTE 0.82 0.10 - 1.30 K/uL 05/16/2025 7:36 AM CDT [employer] - . [facility] EOSINOPHIL ABSOLUTE 0.22 0.00 - 0.70 K/uL 05/16/2025 7:36 AM CDT [facility] BASOPHILS ABSOLUTE 0.05 0.00 - 0.20 K/uL 05/16/2025 7:36 AM CDT [facility] IMMATURE GRANULOCYTES ABSOLUTE 0.01 0.00 - 0.03 K/uL 05/16/2025 7:36 AM CDT [facility] Blood Venipuncture / Unknown 05/16/2025 7:01 AM CDT 05/16/2025 7:17 AM CDT Natacha Ellis OFFICE COORDINATOR HEMATOLOGY ORDERABLES Final Result [facility]# [id number] [address] [place] [address] * MAGNESIUM LEVEL (05/16/2025 7:01 AM CDT) Only the most recent of8 resultswithin the time period is included. [facility] MAGNESIUM 2.0 1.6 - 2.4 mg/dL 05/16/2025 8:01 AM CDT [facility] Blood Venipuncture / Unknown 05/16/2025 7:01 AM CDT 05/16/2025 7:17 AM CDT Adrienne Malave CUTLERY GRINDER CHEMISTRY ORDERABLES Maryanne l Result Performing Organization Address City/[facility]/ZIP Co de Phone Number [facility]# [id number] [address] [place] [address] * SYPHILIS SEROLOGY W/REFLEX (05/12/2025 8:33 AM CDT) [facility] T PALLIDUM ANTIBODIES NEGATIVE NEGATIVE 05/14/2025 12:03 PM CDT [facility] Comment: No antibodies to T. pallidum (the agent causing syphilis) were detected in the specimen. This result, however, does not exclude very recent T. pallidum infection; testing of a second specimen, collected 2-4 weeks after this specimen, is recommended if the index of suspicion for recent infection is high. Blood Venipuncture / Unknown 05/12/2025 8:33 AM CDT 05/12/2025 8:59 AM CDT Narrative [facility] - 05/14/2025 12:03 PM CDT Performing Organization Information: Site ID: [id number] Name: [facility] Address: [address] [place] [id number] Director: Dominic Wilcox us Adrienne Malave [employer] CHEMISTRY ORDERABLES Maryanne l Result [facility] [phone] * ECHOCARDIOGRAM W/ CONTRAST AGENT (05/12/2025 7:56 AM CDT) EJECTION FRACTION 35 INTERFACE SYSTEM 05/12/2025 6:52 AM CDT Narrative INTERFACE SYSTEM - 05/12/2025 8:[place] [address] [email or web address] Transthoracic Echocardiogram Patient: Kameron Man Study ID: ECHOCARDIOGRAM W Gender: M : 1945 Age: 79 Race: CAU Height 180.3cm Study Date: 05/12/2025 Weight: 119.8kg Access. #: [id number] BP: *Referring Physician:* Adrienne Malave *Ordering Physician:* Adrienne Malave php mysql developer: Nurse: Indications: Cardiomyopathy. STUDY CONCLUSIONS: SUMMARY: - Left ventricle: The cavity size was normal. Wall thickness was increased in a pattern of moderate LVH. There is suboptimal visualization of the left ventricular endocardium. There appears to be moderate- severe global hypokinesis with preservation of the basal to mid anteroseptal mcqueen. Global systolic function appears moderate to severely reduced. The estimated ejection fraction is 35%. - Right ventricle: The cavity size is normal. Systolic function is normal. A pacing wire can be seen. - Right atrium: A pacing wire can be seen. - Aortic root: The root is dilated, 4.1 cm. - The study was technically limited and difficult to interpret due to poor acoustic window availability. Intravenous contrast (Definity) was administered to enhance regional wall motion assessment and better define the endocardial border. Cardiac Anatomy: LEFT VENTRICLE: The cavity size was normal. Wall thickness was increased in a pattern of moderate LVH. There is suboptimal visualization of the left ventricular endocardium. There appears to be moderate- severe global hypokinesis with preservation of the basal to mid anteroseptal mcqueen. Global systolic function appears moderate to severely reduced. The estimated ejection fraction is 35%. AORTIC VALVE: Structurally normal valve. Trileaflet. No significant regurgitation. The mean systolic gradient is 1mm Hg. The peak systolic gradient is 4mm Hg. The LVOT to aortic valve VTI ratio is 0.57. The valve area is 2.3cm^2. The ratio of LVOT to aortic valve peak velocity is 0.71. AORTA: Aortic root: The root is dilated, 4.1 cm. MITRAL VALVE: Structurally normal valve. No significant regurgitation. The mean diastolic gradient is 1mm Hg. The peak diastolic gradient is 2mm Hg. LEFT ATRIUM: The atrium is normal in size. RIGHT VENTRICLE: The cavity size is normal. Systolic function is normal. A pacing wire can be seen. PULMONIC VALVE: Not well visualized. No significant regurgitation. TRICUSPID VALVE: Structurally normal valve. No significant regurgitation. RIGHT ATRIUM: Not well visualized. The atrium was normal in size. A pacing wire can be seen. SYSTEMIC VEINS: Inferior vena cava: The IVC is not visualized. PERICARDIUM: There is no pericardial effusion. Measurements Left ventricle Value Ref 03/17/2025 IVS, ED, LAX (H) 1.4 cm 0.6 - 1.0 1.4 JUDE, LAX (L) 3.8 cm 4.2 - 5.8 5.9 JUDE/bsa, LAX (L) 1.6 cm/m^2 2.2 - 3.0 2.5 JUDE, LAX chord (N) 5.6 cm 4.2 - 5.8 6.4 ESD, LAX chord (H) 4.2 cm 2.5 - 4.0 5.9 JUDE/bsa, LAX chord (N) 2.4 cm/m^2 2.2 - 3.0 2.7 ESD/bsa, LAX chord (N) 1.8 cm/m^2 1.3 - 2.1 2.5 FS, LAX chord (N) 25 % 25 - 43 7 IVS, ED (H) 1.4 cm 0.6 - 1.0 1.4 PW, ED (H) 1.4 cm 0.6 - 1.0 1.4 E', lat terence, TDI (L) 8.7 cm/sec >=10.0 E/e', lat terence, TDI (N) 6 <=13 E', med terence, TDI (N) 9.6 cm/sec >=7.0 E/e', med terence, TDI 6 --------- E', avg, TDI 9.2 cm/sec --------- E/e', avg, TDI (N) 6 <=14 LVOT Value Ref 03/17/2025 Diam, S 2.1 cm --------- Area 4.2 cm^2 --------- Peak piedad, S 0.6 m/sec --------- VTI, S 9.0 cm --------- Right ventricle Value Ref 03/17/2025 TAPSE, MM (N) 2.2 cm >=1.7 S' lateral (L) 9.1 cm/sec >=9.5 Left atrium Value Ref 03/17/2025 AP dim, ES (N) 3.8 cm 3.0 - 4.0 AP dim index, ES (N) 1.6 cm/m^2 1.5 - 2.3 SI dim, A4C 6.7 cm --------- Area ES, A4C (N) 18 cm^2 <=20 Area/bsa ES, A4C 7.43 cm^2/m^2 --------- LA/Ao root ratio 0.93 --------- Aortic valve Value Ref 03/17/2025 Peak v, S 0.8 m/sec --------- Mean v, S 0.55 m/sec --------- VTI, S 16.0 cm --------- Mean grad, S 1 mm Hg --------- Peak grad, S 4 mm Hg --------- LVOT/AV, VTI ratio 0.57 --------- ADRY, VTI 2.3 cm^2 --------- ADRY/bsa, VTI 0.99 cm^2/m^2 --------- LVOT/AV, Vpeak ratio 0.71 --------- ADRY, Vmax 2.4 cm^2 --------- ADRY/bsa, Vmax 1 cm^2/m^2 --------- Mitral valve Value Ref 03/17/2025 Mean v, D 0.47 m/sec --------- Peak E 0.54 m/sec --------- Peak A 0.29 m/sec --------- Decel time 98 ms --------- Mean grad, D 1 mm Hg --------- Peak grad, D 2 mm Hg --------- Peak E/A ratio 1.9 --------- A-VTI 20.4 cm --------- Pulmonic valve Value Ref 03/17/2025 Peak v, S 0.78 m/sec --------- Peak grad, S 2 mm Hg --------- Tricuspid valve Value Ref 03/17/2025 TR peak v (N) 1.8 m/sec <=2.8 Peak RV-RA grad, S 18 mm Hg --------- Aortic root Value Ref 03/17/2025 Root diam, 4.1 cm --------- Ascending aorta Value Ref 03/17/2025 AAo AP diam, S 3.7 cm --------- AAo AP diam/bsa, S 1.6 cm/m^2 --------- Legend: (L) and (H) david values outside specified reference range. (N) phillisp values inside specified reference range. Procedure data: Procedure information: A transthoracic echocardiogram was performed. The study was technically limited due to poor acoustic window availability. Scanning was performed from the parasternal, apical, and subcostal acoustic windows. Intravenous contrast (Definity) was administered to enhance regional wall motion assessment and better define the endocardial border. Transthoracic echocardiogram. Complete 2D, complete spectral Doppler, and color Doppler. Birthdate: Patient birthdate: 1945. Age: Patient is 79year(s) old. Sex: gender: male. Height: 180.3cm. 71in. Weight: 119.8kg. 264.1lb. Body mass index: 36.9kg/m^2. Body surface area: 2.37m^2. Study date: Study date: 05/12/2025. Study time: 06:52 AM. Prepared and Electronically Authenticated Christina Ott [id number] Procedure Note Christina Ott MD - 05/12/[address] [address] [email or web address] Transthoracic Echocardiogram Patient: Kameron Man Study ID: ECHOCARDIOGRAM W Gender: M : 1945 Age: 79 Race: [facility] Height 180.3cm Study Date: 05/12/2025 Weight: 119.8kg Access. #: [id number] BP: *Referring Physician:* Adrienne Malave *Ordering Physician:* Adrienne Malave php mysql developer: Nurse: Indications: Cardiomyopathy. STUDY CONCLUSIONS: SUMMARY: - Left ventricle: The cavity size was normal. Wall thickness was increasedin a pattern of moderate LVH. There is suboptimal visualization of theleft ventricular endocardium. There appears to be moderate- severe global hypokinesis with preservation of the basal to mid anteroseptal mcqueen.Global systolic function appears moderate to severely reduced. The estimated ejection fraction is 35%. - Right ventricle: The cavity size is normal. Systolic function is normal.A pacing wire can be seen. - Right atrium: A pacing wire can be seen. - Aortic root: The root is dilated, 4.1 cm. - The study was technically limited and difficult to interpret due topoor acoustic window availability. Intravenous contrast (Definity) was administered to enhance regional wall motion assessment and betterdefine the endocardial border. Cardiac Anatomy: LEFT VENTRICLE: The cavity size was normal. Wall thickness was increasedin a pattern of moderate LVH. There is suboptimal visualization of the left ventricular endocardium. There appears to be moderate- severe global hypokinesis with preservation of the basal to mid anteroseptal mcqueen.Global systolic function appears moderate to severely reduced. The estimatedejection fraction is 35%. AORTIC VALVE: Structurally normal valve. Trileaflet. No significant regurgitation. The mean systolic gradient is 1mm Hg. The peak systolic gradient is 4mm Hg. The LVOT to aortic valve VTI ratio is 0.57. The valvearea is 2.3cm^2. The ratio of LVOT to aortic valve peak velocity is 0.71. AORTA: Aortic root: The root is dilated, 4.1 cm. MITRAL VALVE: Structurally normal valve. No significantregurgitation. The mean diastolic gradient is 1mm Hg. The peak diastolic gradient is 2mmHg. LEFT ATRIUM: The atrium is normal in size. RIGHT VENTRICLE: The cavity size is normal. Systolic function is normal.A pacing wire can be seen. PULMONIC VALVE: Not well visualized. No significant regurgitation. TRICUSPID VALVE: Structurally normal valve. No significantregurgitation. RIGHT ATRIUM: Not well visualized. The atrium was normal in size. Apacing wire can be seen. SYSTEMIC VEINS: Inferior vena cava: The IVC is not visualized. PERICARDIUM: There is no pericardial effusion. Measurements Left ventricle Value Ref 03/17/2025 IVS, ED, LAX (H) 1.4 cm 0.6 - 1.0 1.4 JUDE, LAX (L) 3.8 cm 4.2 - 5.8 5.9 JUDE/bsa, LAX (L) 1.6 cm/m^2 2.2 - 3.0 2.5 JUDE, LAX chord (N) 5.6 cm 4.2 - 5.8 6.4 ESD, LAX chord (H) 4.2 cm 2.5 - 4.0 5.9 JUDE/bsa, LAX chord (N) 2.4 cm/m^2 2.2 - 3.0 2.7 ESD/bsa, LAX chord (N) 1.8 cm/m^2 1.3 - 2.1 2.5 FS, LAX chord (N) 25 % 25 - 43 7 IVS, ED (H) 1.4 cm 0.6 - 1.0 1.4 PW, ED (H) 1.4 cm 0.6 - 1.0 1.4 E', lat terence, TDI (L) 8.7 cm/sec >=10.0 E/e', lat terence, TDI (N) 6 <=13 E', med terence, TDI (N) 9.6 cm/sec >=7.0 E/e', med terence, TDI 6 --------- E', avg, TDI 9.2 cm/sec --------- E/e', avg, TDI (N) 6 <=14 LVOT Value Ref 03/17/2025 Diam, S 2.1 cm --------- Area 4.2 cm^2 --------- Peak piedad, S 0.6 m/sec --------- VTI, S 9.0 cm --------- Right ventricle Value Ref 03/17/2025 TAPSE, MM (N) 2.2 cm >=1.7 S' lateral (L) 9.1 cm/sec >=9.5 Left atrium Value Ref 03/17/2025 AP dim, ES (N) 3.8 cm 3.0 - 4.0 AP dim index, ES (N) 1.6 cm/m^2 1.5 - 2.3 SI dim, A4C 6.7 cm --------- Area ES, A4C (N) 18 cm^2 <=20 Area/bsa ES, A4C 7.43 cm^2/m^2 --------- LA/Ao root ratio 0.93 --------- Aortic valve Value Ref 03/17/2025 Peak v, S 0.8 m/sec --------- Mean v, S 0.55 m/sec --------- VTI, S 16.0 cm --------- Mean grad, S 1 mm Hg --------- Peak grad, S 4 mm Hg --------- LVOT/AV, VTI ratio 0.57 --------- ADRY, VTI 2.3 cm^2 --------- ADRY/bsa, VTI 0.99 cm^2/m^2 --------- LVOT/AV, Vpeak ratio 0.71 --------- ADRY, Vmax 2.4 cm^2 --------- ADRY/bsa, Vmax 1 cm^2/m^2 --------- Mitral valve Value Ref 03/17/2025 Mean v, D 0.47 m/sec --------- Peak E 0.54 m/sec --------- Peak A 0.29 m/sec --------- Decel time 98 ms --------- Mean grad, D 1 mm Hg --------- Peak grad, D 2 mm Hg --------- Peak E/A ratio 1.9 --------- A-VTI 20.4 cm --------- Pulmonic valve Value Ref 03/17/2025 Peak v, S 0.78 m/sec --------- Peak grad, S 2 mm Hg --------- Tricuspid valve Value Ref 03/17/2025 TR peak v (N) 1.8 m/sec <=2.8 Peak RV-RA grad, S 18 mm Hg --------- Aortic root Value Ref 03/17/2025 Root diam, 4.1 cm --------- Ascending aorta Value Ref 03/17/2025 AAo AP diam, S 3.7 cm --------- AAo AP diam/bsa, S 1.6 cm/m^2 --------- Legend: (L) and (H) david values outside specified reference range. (N) phillips values inside specified reference range. Procedure data: Procedure information: A transthoracic echocardiogram was performed.The study was technically limited due to poor acoustic window availability. Scanning was performed from the parasternal, apical, and subcostalacoustic windows. Intravenous contrast (Definity) was administered to enhanceregional wall motion assessment and better define the endocardial border. Transthoracic echocardiogram. Complete 2D, complete spectral Doppler,and color Doppler. Birthdate: Patient birthdate: 1945. Age: Patientis 79year(s) old. Sex: gender: male. Height: 180.3cm. 71in.Weight: 119.8kg. 264.1lb. Body mass index: 36.9kg/m^2. Body surface area: 2.37m^2. Study date: Study date: 05/12/2025. Study time: 06:52 AM. Prepared and Electronically Authenticated Christina Ott [id number] Adrienne Malave NP US ORDERABLES Final Res ult Performing Organization Address City/[facility] Co de Phone Number INTERFACE SYSTEM Refer to clinic/hospital department * BLOOD CULTURE (05/11/2025 12:02 PM CDT) Only the most recent of2 resultswithin the time period is included. Pathologist [facility] BLOOD CULTURE No growth 05/16/2025 2:40 PM CDT [facility] Blood (Peripheral) Venipuncture / Unknown 05/11/2025 12:02 PM CDT 05/11/2025 12:25 PM CDT Narrative [facility] - 05/16/2025 2:40 PM CDT Specimen processed with suboptimal blood volume collected. Adrienne Malave NP MICROBIOLOGY - GENERAL OR DERABLES Final Result Performing Organization Address [facility] de Phone Number [facility] [employer] [facility] CLIA# [id number] [address] [place] [address] * HIV DETECTION W/REFLX CONFIRMATION (05/11/2025 12:00 PM CDT) Pathologist [facility] HIV-1 AND 2 ABS AND HIV-1 AG Non-reacti ve Non-reacti ve 05/11/2025 1:29 PM CDT [facility] [employer] [facility] Blood Venipuncture / Unknown 05/11/2025 12:00 PM CDT 05/11/2025 12:24 PM CDT Adrienne Malave NP CHEMISTRY ORDERABLES Maryanne l Result Performing Organization Address [facility]/ZIP Co de Phone Number [facility] CLIA# [id number] [address] [facility] [place] [address] * EKG 12-LEAD (05/10/2025 4:56 PM CDT) Only the most recent of5 resultswithin the time period is included. 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: : 1945 Requested By: MINAL Corcoran Order Number: [id number] Reading MD: David Tolbert Measurements Intervals [place] Rate: 80 P: 0 DC: 0 QRS: 160 QRSD: 174 T: 19 QT: 477 QTc: 551 Interpretive Statements Afib/flutter and ventricular-paced rhythm Electronically Signed On 05-11-2025 9:10:08 CDT by David Tolbert Procedure Note David Tolbert MD - 05/11/2025 [facility] [address] [place] [address] Test Date: 2025-05-10 Pat Name: [facility] Department: 41 Room: [facility] 1 Gender: Male Scanner Operator: ms : 1945 Requested By: MINAL Corcoran Order Number: [id number] Reading : David Tolbert Measurements Intervals [place] Rate: 80 P: 0 DC: 0 QRS: 160 QRSD: 174 T: 19 QT: 477 QTc: 551 Interpretive Statements Afib/flutter and ventricular-paced rhythm Electronically Signed On 05-11-2025 9:10:08 CDT by David Tolbert us Adrienne Malave [employer] ECG ORDERABLES Final Res ult INTERFACE SYSTEM Refer to clinic/hospital department * CT CHEST WO CONTRAST (05/10/2025 1:45 PM CDT) Anatomical Region Laterality Modality Chest Computed Tomogra phy 05/10/2025 1:39 PM CDT Impressions 05/10/2025 3:12 PM CDT IMPRESSION: 1. Cardiomegaly. 2. Right-sided thyroid nodule, ultrasound could better evaluate. 3. Coronary artery calcification. DICTATION LOCATION: Location [facility] Meredith 05/10/2025 3:[address] CHEST WO CONTRAST DATE: 05/10/2025 1:45 PM HISTORY: Altered mental status. Evaluate for fluid overload. COMPARISON: None. TECHNIQUE: Contiguous axial CT images were obtained of the chest without contrast. Images were reconstructed in the sagittal and coronal plane. The examination was performed with the adjustment of mA according to the patient size and/or the use of Iterative Reconstruction Technique. FINDINGS: CHEST: Lungs: No pulmonary consolidation, pleural effusion or pneumothorax. Previous granulomatous disease. Lower Neck/Axilla: 2.0 cm hypodense nodule posterior right lobe of the thyroid. Ultrasound could better evaluate. Mediastinum/Chichi: Evaluation is limited without IV contrast. Cardiovascular: Cardiomegaly. No pericardial effusion. Left-sided pacemaker. Subjective Evaluation of Coronary Artery Calcification: Severe. Suspected coronary stents. Visualized Upper Abdomen: Cholecystectomy. Pancreatic atrophy. Musculoskeletal/Soft Tissues: No acute osseous abnormality. Procedure Note Celio Mejias MD - 05/10/2025 CT CHEST WO CONTRAST DATE: 05/10/2025 1:45 PM HISTORY: Altered mental status. Evaluate for fluid overload. COMPARISON: None. TECHNIQUE: Contiguous axial CT images were obtained of the chest without contrast. Images were reconstructed in the sagittal and coronal plane. The examination was performed with the adjustment of mA according to the patient size and/or the use of Iterative Reconstruction Technique. FINDINGS: CHEST: Lungs: No pulmonary consolidation, pleural effusion or pneumothorax. Previous granulomatous disease. Lower Neck/Axilla: 2.0 cm hypodense nodule posterior right lobe of the thyroid. Ultrasound could better evaluate. Mediastinum/Chichi: Evaluation is limited without IV contrast. Cardiovascular: Cardiomegaly. No pericardial effusion. Left-sided pacemaker. Subjective Evaluation of Coronary Artery Calcification: Severe. Suspected coronary stents. Visualized Upper Abdomen: Cholecystectomy. Pancreatic atrophy. Musculoskeletal/Soft Tissues: No acute osseous abnormality. IMPRESSION: 1. Cardiomegaly. 2. Right-sided thyroid nodule, ultrasound could better evaluate. 3. Coronary artery calcification. DICTATION LOCATION: Location [facility] Kelly Maurer us Adrienne Malave [employer] CT ORDERABLES Final Res ult * CT HEAD CERVICAL SPINE WO CONTRAST (05/10/2025 1:44 PM CDT) Only the most recent of2 resultswithin the time period is included. Anatomical Region Laterality Modality Head Computed Tomogra phy 05/10/2025 1:36 PM CDT Impressions 05/10/2025 2:01 PM CDT IMPRESSION: 1. No acute abnormality of the head or cervical spine. [facility] 05/10/2025 2:[address] HEAD WITHOUT CONTRAST AND CT CERVICAL SPINE WITHOUT CONTRAST WITH REFORMATTED IMAGES DATE: 05/10/2025 1:44 PM HISTORY: Fall this morning hit head and neck, current neck pain. Acute metabolic encephalopathy; Type 2 diabetes mellitus with diabetic polyneuropathy, with long-term current use of insulin (CMS/HCC); Type 2 diabetes mellitus with diabetic polyneuropathy, with long-term current use of insulin (CMS/HCC); Ischemic cardiomyopathy; History of TIA (transient ischemic attack) and stroke; Essential hypertension; Delirium; Chronic pain syndrome; Situational mixed anxiety and depressive disorder; Status post biventricular pacemaker COMPARISON: None. TECHNIQUE: Helical with reformats. The examination was performed with the adjustment of mA according to the patient size and/or the use of Iterative Reconstruction Technique. Please note that CT is inherently less sensitive than MRI for the evaluation of most intracranial pathology. BRAIN FINDINGS: VENTRICLES: Ventricles are within normal limits. MIDLINE: No midline shift. PARENCHYMA: No territorial loss of haider-white matter differentiation or mass effect. No hyperdense parenchymal hemorrhage. EXTRA-AXIAL SPACE: No hyperdense hemorrhage. Patent cisterns. CALVARIUM: Intact calvarium. SINUSES: Normal aeration of paranasal sinuses and mastoid air cells. VASCULAR: Atherosclerotic calcifications ADDITIONAL: None CERVICAL SPINE FINDINGS: ALIGNMENT: Preservation of alignment. ATLANTOAXIAL/ATLANTOOCCIPITAL: No traumatic malalignment. TRAUMATIC: No fracture. PULMONARY APICES: Limited evaluation. Grossly unremarkable. SOFT TISSUES: Unremarkable soft tissues. ADDITIONAL: None. DEGENERATIVE: Mild spondylosis. Procedure Note Celio Mcwilliams MD - 05/10/2025 CT HEAD WITHOUT CONTRAST AND CT CERVICAL SPINE WITHOUT CONTRAST WITH REFORMATTED IMAGES DATE: 05/10/2025 1:44 PM HISTORY: Fall this morning hit head and neck, current neck pain. Acute metabolic encephalopathy; Type 2 diabetes mellitus with diabetic polyneuropathy, with long-term current use of insulin (CMS/HCC); Type 2 diabetes mellitus with diabetic polyneuropathy, with long-term current use of insulin (CMS/HCC); Ischemic cardiomyopathy; History of TIA (transient ischemic attack) and stroke; Essential hypertension; Delirium; Chronic pain syndrome; Situational mixed anxiety and depressive disorder; Status post biventricular pacemaker COMPARISON: None. TECHNIQUE: Helical with reformats. The examination was performed with the adjustment of mA according to the patient size and/or the use of Iterative Reconstruction Technique. Please note that CT is inherently less sensitive than MRI for the evaluation of most intracranial pathology. BRAIN FINDINGS: VENTRICLES: Ventricles are within normal limits. MIDLINE: No midline shift. PARENCHYMA: No territorial loss of haider-white matter differentiation or mass effect. No hyperdense parenchymal hemorrhage. EXTRA-AXIAL SPACE: No hyperdense hemorrhage. Patent cisterns. CALVARIUM: Intact calvarium. SINUSES: Normal aeration of paranasal sinuses and mastoid air cells. VASCULAR: Atherosclerotic calcifications ADDITIONAL: None CERVICAL SPINE FINDINGS: ALIGNMENT: Preservation of alignment. ATLANTOAXIAL/ATLANTOOCCIPITAL: No traumatic malalignment. TRAUMATIC: No fracture. PULMONARY APICES: Limited evaluation. Grossly unremarkable. SOFT TISSUES: Unremarkable soft tissues. ADDITIONAL: None. DEGENERATIVE: Mild spondylosis. IMPRESSION: 1. No acute abnormality of the head or cervical spine. DICTATION LOCATION: Location - [facility] us Adrienne Malvae [employer] CT ORDERABLES Final Res ult * C-REACTIVE PROTEIN (05/10/2025 7:08 AM CDT) Only the most recent of2 resultswithin the time period is included. CRP <3.0 <5.0 mg/L 05/10/2025 8:29 AM CDT [facility] [employer] [facility] Blood Venipuncture / Unknown 05/10/2025 7:08 AM CDT 05/10/2025 7:38 AM CDT Adrienne Malave [employer] CHEMISTRY ORDERABLES Maryanne l Result Performing Organization Address City/[facility]/ZIP Co de Phone Number [facility] CLIA# [id number] [address] [place] [address] * (ABNORMAL) BRAIN NATRIURETIC PEPTIDE, BNP OR PROBNP (05/10/2025 7:08 AM CDT) Only the most recent of3 resultswithin the time period is included. PROBNP, N TERMINAL 2,277(H) <449 pg/mL 05/10/2025 11:20 AM CDT [facility] [employer] [facility] Comment: INTERPRETIVE COMMENT based on diagnosis: [...] years: >1800 pg/mL Blood Venipuncture / Unknown 05/10/2025 7:08 AM CDT 05/10/2025 7:38 AM CDT Adrienne Malave [employer] CHEMISTRY ORDERABLES Maryanne l Result [facility] CLIA# [id number] [address] [place] [address] * CT ABDOMEN PELVIS W CONTRAST (05/09/2025 3:27 PM CDT) Anatomical Region Laterality Modality Abdomen Computed Tomogra phy 05/09/2025 3:23 PM CDT Impressions 05/09/2025 5:05 PM CDT IMPRESSION: Lumbar spondylosis. Postop lumbar fusion. Renal cysts. Status post prior cholecystectomy. Pacemaker. Patient was scanned with iterative reconstruction to minimize radiation dose. DICTATION LOCATION: Location [facility] 05/09/2025 5:[address] SCAN ABDOMEN AND PELVIS WITH CONTRAST DATE: 05/09/2025 HISTORY: Abdominal pain acute, nonlocalized IV contrast: 90 cc Isovue-300 FINDINGS: Pacemaker is in place. Coronary artery atherosclerotic calcification is seen and possibly coronary artery stents. There is prominence of basilar lung markings likely some dependent atelectasis. Heart size is enlarged. Patient is status post cholecystectomy. Liver shows no focal abnormalities. Normal hepatic venous and hepatic portal venous enhancement seen. Adrenal glands are normal. Bilateral perinephric wisps are noted. Bilateral cortical cysts are noted. No hydronephrosis or renal calculi are identified. Lumbar laminectomies have been performed at L3 and L4. Fusion has been performed between L3, L4 and L5. No free intraperitoneal air seen. Diverticulosis of descending colon and sigmoid colon noted without evidence of diverticulitis. Appendix appears normal. Bladder contains unopacified urine. Prostate gland has calcifications and metallic structures contained within it which could be surgical clips or metallic implants. Procedure Note Sarath Novak MD - 05/09/2025 CT SCAN ABDOMEN AND PELVIS WITH CONTRAST DATE: 05/09/2025 HISTORY: Abdominal pain acute, nonlocalized IV contrast: 90 cc Isovue-300 FINDINGS: Pacemaker is in place. Coronary artery atherosclerotic calcification is seen and possibly coronary artery stents. There is prominence of basilar lung markings likely some dependent atelectasis. Heart size is enlarged. Patient is status post cholecystectomy. Liver shows no focal abnormalities. Normal hepatic venous and hepatic portal venous enhancement seen. Adrenal glands are normal. Bilateral perinephric wisps are noted. Bilateral cortical cysts are noted. No hydronephrosis or renal calculi are identified. Lumbar laminectomies have been performed at L3 and L4. Fusion has been performed between L3, L4 and L5. No free intraperitoneal air seen. Diverticulosis of descending colon and sigmoid colon noted without evidence of diverticulitis. Appendix appears normal. Bladder contains unopacified urine. Prostate gland has calcifications and metallic structures contained within it which could be surgical clips or metallic implants. IMPRESSION: Lumbar spondylosis. Postop lumbar fusion. Renal cysts. Status post prior cholecystectomy. Pacemaker. Patient was scanned with iterative reconstruction to minimize radiation dose. DICTATION LOCATION: Location [address] [place] [address] us Ivette Natarajan MD CT ORDERABLES Final Resul t * US ABDOMEN LIMITED (05/08/2025 3:14 PM CDT) Anatomical Region Laterality Modality Abdomen Ultrasound 05/08/2025 3:16 PM CDT Impressions 05/08/2025 5:44 PM CDT IMPRESSION: 1. No acute abnormality is identified on ultrasound of the right upper quadrant. 2. Status post cholecystectomy. Dictation location: Location 4 Narrative 05/08/2025 5:44 PM CDT US ABDOMEN LIMITED DATE: 05/08/2025 3:14 PM TECHNIQUE: Right upper quadrant ultrasound, including grayscale and color Doppler imaging. CLINICAL INDICATION: Epigastric Pain. COMPARISON: Renal ultrasound from January 07, 2022 FINDINGS: The pancreas is not well seen due to bowel gas. The contour of the liver is smooth. No intrahepatic biliary ductal dilatation or liver mass is identified. Liver echotexture is difficult to evaluate. Portal venous flow is hepatopetal and waveform is normal. The imaged hepatic veins are patent. The gallbladder has been removed. Common bile duct diameter is 2.9 mm. The right kidney is normal in size and is not hydronephrotic. The aorta and IVC are not well evaluated. Procedure Note Crow Alatorre MD - 05/08/2025 US ABDOMEN LIMITED DATE: 05/08/2025 3:14 PM TECHNIQUE: Right upper quadrant ultrasound, including grayscale and color Doppler imaging. CLINICAL INDICATION: Epigastric Pain. COMPARISON: Renal ultrasound from January 07, 2022 FINDINGS: The pancreas is not well seen due to bowel gas. The contour of the liver is smooth. No intrahepatic biliary ductal dilatation or liver mass is identified. Liver echotexture is difficult to evaluate. Portal venous flow is hepatopetal and waveform is normal. The imaged hepatic veins are patent. The gallbladder has been removed. Common bile duct diameter is 2.9 mm. The right kidney is normal in size and is not hydronephrotic. The aorta and IVC are not well evaluated. IMPRESSION: 1. No acute abnormality is identified on ultrasound of the right upper quadrant. 2. Status post cholecystectomy. Dictation location: Location 4 us Ivette Natarajan MD US ORDERABLES Final Resul t * (ABNORMAL) TROPONIN 6 HR, 5TH GEN (05/08/2025 2:54 PM CDT) Only the most recent of3 resultswithin the time period is included. TROPONIN T, 6 HR 5TH GEN 24(H) <=15 ng/L 05/08/2025 4:21 PM CDT [facility] DELTA 6HR TROPONIN T 0 See Interp. 05/08/2025 4:21 PM CDT [facility] [employer] [facility] Blood Venipuncture / Unknown 05/08/2025 2:54 PM CDT 05/08/2025 3:41 PM CDT Narrative [facility] - 05/08/2025 4:21 PM CDT Troponin elevated. Delta indeterminate. Delay in collection of timed specimen beyond recommended collection interval. Results must be interpreted in clinical context. us Natacha Ellis APRN CHEMISTRY ORDERABLES Final Result [facility] [employer] [facility]# [id number] [address] [facility] [place] [address] * (ABNORMAL) TROPONIN 2 HR, 5TH GEN (05/08/2025 10:59 AM CDT) Only the most recent of3 resultswithin the time period is included. TROPONIN T, 2 HR 5TH GEN 25(H) <=15 ng/L 05/08/2025 12:14 PM CDT [facility] DELTA 2HR TROPONIN T 1 See Interp. 05/08/2025 12:14 PM CDT [facility] Blood Venipuncture / Unknown 05/08/2025 10:59 AM CDT 05/08/2025 11:40 AM CDT Narrative [facility] - 05/08/2025 12:14 PM CDT Troponin elevated. Delta not changing. Delay in collection of timed specimen beyond recommended collection interval. Results must be interpreted in clinical context. Natacha Ellis APRN CHEMISTRY ORDERABLES Final Result Performing Organization Address [facility] Co de Phone Number [facility] CLIA# [id number] [address] [place] [address] * (ABNORMAL) TROPONIN BASELINE, 5TH GEN (05/08/2025 8:55 AM CDT) Only the most recent of3 resultswithin the time period is included. TROPONIN T, BASELINE 5TH GEN 24(H) <=15 ng/L 05/08/2025 10:21 AM CDT [facility] [employer] [facility] Blood Venipuncture / Unknown 05/08/2025 8:55 AM CDT 05/08/2025 9:29 AM CDT Narrative [facility] - 05/08/2025 10:21 AM CDT Troponin elevated. Natacha Ellis APRN CHEMISTRY ORDERABLES Final Result Performing Organization Address [facility] Co de Phone Number [facility] CLIA# [id number] [address] [place] [address] * (ABNORMAL) LIPASE (05/08/2025 8:55 AM CDT) LIPASE 12(L) 13 - 60 U/L 05/08/2025 10:21 AM CDT [facility] [employer] [facility] Blood Venipuncture / Unknown 05/08/2025 8:55 AM CDT 05/08/2025 9:29 AM CDT us Ivette Natarajan MD CHEMISTRY ORDERABLES Final Result [employer] SERVICES - [facility]# [id number] [address] [place] [address] * (ABNORMAL) URINALYSIS WITH REFLEX MICROSCOPIC (05/08/2025 7:50 AM CDT) Only the most recent of2 resultswithin the time period is included. COLOR UA Yellow Pale to Dark Yellow 05/08/2025 8:23 AM CDT [employer] LABORATORY SERVICES - [facility] CLARITY UA Clear Clear 05/08/2025 8:23 AM T [employer] LABORATORY SERVICES - [facility] SPECIFIC GRAVITY UA 1.014 1.003 - 1.035 05/08/2025 8:23 AM T [employer] SERVICES - [facility] PH UA 6.0 5.0 - 8.0 05/08/2025 8:23 AM T [employer] LABORATORY SERVICES - [facility] LEUKOCYTE ESTERASE UA Negative Negative 05/08/2025 8:23 AM T [employer] LABORATORY SERVICES - [facility] NITRITE UA Negative Negative 05/08/2025 8:23 AM T [employer] LABORATORY SERVICES - [facility] PROTEIN UA Negative Negative 05/08/2025 8:23 AM T [employer] LABORATORY SERVICES - [facility] GLUCOSE UA 3+(A) Negative 05/08/2025 8:23 AM [facility] [employer] LABORATORY SERVICES - [facility] KETONES UA 1+(A) Negative 05/08/2025 8:23 AM T [employer] LABORATORY SERVICES - [facility] UROBILINOGEN UA Normal <2.0 mg/dL 8:23 AM T [employer] LABORATORY SERVICES - [facility] BILIRUBIN UA Negative Negative 05/08/2025 8:23 AM T [employer] LABORATORY SERVICES - [facility] BLOOD UA Negative Negative 05/08/2025 8:23 AM T [employer] LABORATORY SERVICES - . [facility] WBC UA 0-2 0 - 2 /hpf 05/08/2025 8:23 AM T [employer] LABORATORY SERVICES - . [facility] RBC UA 0-2 0 - 2 /hpf 05/08/2025 8:23 AM CDT [employer] LABORATORY SERVICES - [facility] BACTERIA UA Negative Negative /hpf 05/08/2025 8:23 AM CDT [employer] LABORATORY SERVICES - . [facility] HYALINE CAST 0-2 None Seen, 0-2 /lpf 05/08/2025 8:23 AM CDT [employer] LABORATORY SERVICES - . [facility] GRANULAR CAST 0-2(A) None Seen /lpf 05/08/2025 8:23 AM CDT [employer] LABORATORY SERVICES - [facility] Urine URINE SPECIMEN OBTAINED BY CLEAN CATCH PROCEDURE / Unknown Collection / Unknown 05/08/2025 7:50 AM CDT 05/08/2025 7:53 AM CDT Minal Villegas MD URINE ORDERABLES Final Result [facility]ORY SERVICES - [facility]# [id number] [address] [place] [address] * (ABNORMAL) DRUG SCREEN, URINE (05/08/2025 7:49 AM CDT) AMPHETAMINE QUAL, URINE Negative Negative 05/08/2025 8:25 AM CDT [employer] LABORATORY SERVICES - [facility] BARBITURATE QUAL, URINE Negative Negative 05/08/2025 8:25 AM CDT [employer] LABORATORY SERVICES - [facility] BENZODIAZEPINE QUAL, URINE Presumptive Positive(A) Negative 05/08/2025 8:25 AM CDT [employer] LABORATORY SERVICES - [facility] COCAINE QUAL URINE Negative Negative 05/08/2025 8:25 AM CDT [employer] LABORATORY SERVICES - [facility] OPIATE QUAL, URINE Negative Negative 05/08/2025 8:25 AM CDT [employer] LABORATORY SERVICES - [facility] CANNABINOIDS QUAL, URINE Negative Negative 05/08/2025 8:25 AM CDT [employer] LABORATORY SERVICES - [facility] PCP QUAL, URINE Negative Negative 8:25 AM CDT [employer] LABORATORY SERVICES - [facility] OXYCODONE QUAL, URINE Negative Negative 05/08/2025 8:25 AM CDT [employer] LABORATORY SERVICES - [facility] METHADONE QUAL, URINE Negative Negative 05/08/2025 8:25 AM CDT [facility] FENTANYL QUAL, URINE Negative Negative 05/08/2025 8:25 AM CDT [facility] CREATININE, URINE 87.5 40.0 - 278.0 mg/dL 05/08/2025 8:25 AM CDT [facility] Comment:Reference Range vari es with fluid intake and diet. Urine URINE SPECIMEN OBTAINED BY CLEAN CATCH PROCEDURE / Unknown Collection / Unknown 05/08/2025 7:49 AM CDT 05/08/2025 7:54 AM CDT Narrative [facility] - 05/08/2025 8:25 AM CDT This test is a qualitative screen. The presumptive positive results should not be used for legal purposes. If confirmation of results is desired, the lab must be contacted without delay. Drug Ref. Range Screening Threshold Amphetamines Negative 500 ng/mL Barbiturates Negative 200 ng/mL Benzodiazepines Negative 100 ng/mL Cannabinoids Negative 50 ng/mL Cocaine Negative 150 ng/mL Methadone Negative 300 ng/mL Opiates Negative 300 ng/mL Oxycodone Negative 100 ng/mL Phencyclidine Negative 25 ng/mL Fentanyl Negative 5 ng/mL us Tony Brooke MD URINE ORDERABLES Fin al Result [facility]# [id number] [address] [facility] [place] [address] * XR ABDOMEN 1 VW (05/07/2025 11:40 PM CDT) Anatomical Region Laterality Modality Abdomen Computed Radiogr aphy 05/07/2025 11:4 0 PM CDT Impressions 05/08/2025 6:09 AM CDT IMPRESSION: 1. Nonspecific bowel gas pattern with no evidence of bowel obstruction. DICTATION LOCATION: Location 2 - [facility] Narrative 05/08/2025 6:09 AM CDT XR ABDOMEN 1 VW DATE: 05/07/2025 11:40 PM HISTORY: Pain, Comment: persistent nausea. Acute metabolic encephalopathy; Type 2 diabetes mellitus with diabetic polyneuropathy, with long-term current use of insulin ([facility]/HCC); Type 2 diabetes mellitus with diabetic polyneuropathy, with long-term current use of insulin (CMS/HCC); Ischemic cardiomyopathy; History of TIA (transient ischemic attack) and stroke; Essential hypertension; Delirium; Chronic pain syndrome; Situational mixed anxiety and depressive disorder; Status post biventricular pacemaker COMPARISON: January 05, 2022 TECHNIQUE: Portable supine abdomen FINDINGS: . The bowel gas pattern is nonspecific. There is no evidence of bowel obstruction. There are postoperative changes in the lumbar spine. No urinary tract calcifications are seen. There are surgical clips in the right upper quadrant. Procedure Note Micah Michael MD - 05/08/2025 XR ABDOMEN 1 VW DATE: 05/07/2025 11:40 PM HISTORY: Pain, Comment: persistent nausea. Acute metabolic encephalopathy; Type 2 diabetes mellitus with diabetic polyneuropathy, with long-term current use of insulin (CMS/HCC); Type 2 diabetes mellitus with diabetic polyneuropathy, with long-term current use of insulin (CMS/HCC); Ischemic cardiomyopathy; History of TIA (transient ischemic attack) and stroke; Essential hypertension; Delirium; Chronic pain syndrome; Situational mixed anxiety and depressive disorder; Status post biventricular pacemaker COMPARISON: January 05, 2022 TECHNIQUE: Portable supine abdomen FINDINGS: . The bowel gas pattern is nonspecific. There is no evidence of bowel obstruction. There are postoperative changes in the lumbar spine. No urinary tract calcifications are seen. There are surgical clips in the right upper quadrant. IMPRESSION: 1. Nonspecific bowel gas pattern with no evidence of bowel obstruction. DICTATION LOCATION: [address] Natacha Ellis APRN DIAGNOSTIC IMAGING ORDERABL ES Final Result * RESPIRATORY PATHOGEN PCR PANEL (05/07/2025 4:48 PM CDT) Respiratory Pathogen PCR Panel NOT DETECTED No respiratory pathogen nucleic acids detected. 05/07/2025 6:13 PM CDT [facility] LABORATORY SERVICES [facility] COVID-19 PCR NOT DETECTED Not Detected 05/07/2025 6:13 PM CDT [facility] LABORATORY [facility] Upper Respiratory ENTIRE NASOPHARYNX / Unknown Collection / Unknown 05/07/2025 4:48 PM CDT 05/07/2025 4:56 PM CDT Narrative [facility] LABORATORY [facility] - 05/07/2025 6:13 PM CDT The Film Array Respiratory Panel (RP2.1) is a multiplex nucleic acid detection test for 22 targets. Viruses: Adenovirus Coronavirus HKU1, NL63, 229E, and OC43 COVID-19/Severe Acute Respiratory Syndrome Coronavirus 2 Influenza A with the following subtypes: H1, H1-2009, and H3 Influenza B Human Metapneumovirus Parainfluenza virus 1, 2, 3, and 4 Respiratory Syncytial virus (RSV) Rhinovirus/Enterovirus (cannot differentiate due to genetic similarities) Bacteria: Bordetella pertussis Bordetella parapertussis Chlamydophila pneumoniae Mycoplasma pneumoniae Minal Villegas MD MICROBIOLOGY - GENERAL ORDERAB LES Final Result [facility]# [id number] [address] [place] [address] * (ABNORMAL) COMPREHENSIVE METABOLIC PANEL (05/07/2025 2:11 PM CDT) Only the most recent of4 resultswithin the time period is included. SODIUM 140 136 - 145 mmol/L 05/07/2025 2:50 PM CDT [facility] LABORATORY [facility] POTASSIUM 4.1 3.5 - 5.0 mmol/L 05/07/2025 2:50 PM CDT [facility] CHLORIDE 103 98 - 107 mmol/L 05/07/2025 2:50 PM CDT [facility] LABORATORY [facility] CO2 27 22 - 29 mmol/L 05/07/2025 2:50 PM CDT [facility] LABORATORY [facility]. [facility] CALCIUM 8.7 8.6 - 10.2 mg/dL 05/07/2025 2:50 PM CDT [facility] LABORATORY [facility] - . CRISTIAN BUN 12 8 - 23 mg/dL 05/07/2025 2:50 PM CDT [facility] LABORATORY [facility]. [facility] CREATININE 1.01 0.67 - 1.17 mg/dL 05/07/2025 2:50 PM CDT [facility] LABORATORY [facility] Comment:The GFR result is no t clinically significant on patients <18 or >70 years of age. GLUCOSE 224(H) 74 - 99 mg/dL 05/07/2025 2:50 PM T [facility] LABORATORY [facility] TOTAL PROTEIN 5.7(L) 6.7 - 8.6 g/dL 05/07/2025 2:50 PM T [facility] LABORATORY [facility] ALBUMIN 3.7 3.5 - 5.2 g/dL 05/07/2025 2:50 PM T [facility] BILIRUBIN TOTAL 0.6 0.0 - 1.1 mg/dL 05/07/2025 2:50 PM T [facility] LABORATORY [facility] ALKALINE PHOSPHATASE 79 40 - 129 U/L 05/07/2025 2:50 PM T [facility] AST 27 <41 U/L 05/07/2025 2:50 PM [facility] LABORATORY [facility] ALT 19 <42 U/L 05/07/2025 2:50 PM T [facility] GFR >60 mL/min/1.7 3 sq meter 05/07/2025 2:50 PM T [facility] LABORATORY [facility] Comment:eGFR calculated with 2020 CKD-EPI equation. Vegetarian diet, extremely high or low muscle mass, and may affect results. Cystatin C with Glomerular Filtration Rate is a suitable alternative for these patients. ANION GAP 10 8 - 16 mmol/L 05/07/2025 2:50 PM T [facility] Blood Venipuncture / Unknown 05/07/2025 2:11 PM CDT 05/07/2025 2:16 PM CDT [facility] LABORATORY SERVICES [facility] - 05/07/2025 2:50 PM CDT Samples containing indocyanine green cause interferences on Total and/or Direct Bilirubin and must not be measured. us Minal Villegas MD CHEMISTRY ORDERABLES Final Res ult [facility] [employer] [facility] CLIA# [id number] [address] [facility] [address] [place] [address] * CT HEAD WO CONTRAST (05/05/2025 11:11 AM CDT) Anatomical Region Laterality Modality Head Computed Tomogra phy 05/05/2025 11:0 6 AM CDT Impressions 05/05/2025 12:17 PM CDT IMPRESSION: 1. No acute intracranial process. DICTATION LOCATION: Location 1 - [facility] 05/05/2025 12:17 PM CDT EXAMINATION: CT HEAD WO CONTRAST HISTORY: Mental status change, unknown cause. See Reason for Exam TECHNIQUE: CT of the head was performed without contrast according to standard protocol. The examination was performed with the adjustment of mA according to the patient size and/or the use of Iterative Reconstruction Technique. FINDINGS: Comparison is made with a study from March 17, 2025. No acute intra- or extra-axial fluid collections are identified. The ventricles are nondilated. Mild cerebral volume loss. The basilar cisterns are patent. No mass [...] appear normal. No acute fracture is identified. Procedure Note Kareem Fox MD - 05/05/2025 EXAMINATION: CT HEAD WO CONTRAST HISTORY: Mental status change, unknown cause. See Reason for Exam TECHNIQUE: CT of the head was performed without contrast according to standard protocol. The examination was performed with the adjustment of mA according to the patient size and/or the use of Iterative Reconstruction Technique. FINDINGS: Comparison is made with a study from March 17, 2025. No acute intra- or extra-axial fluid collections are identified. The ventricles are nondilated. Mild cerebral volume loss. The basilar cisterns are patent. No mass [...] appear normal. No acute fracture is identified. IMPRESSION: 1. No acute intracranial process. DICTATION LOCATION: Location 1 - [facility] Randa Sosa MD CT ORDERABLES Final Resu lt * GI PATHOGEN PCR PANEL (05/04/2025 7:00 PM CDT) GI Pathogen PCR panel NOT DETECTED No nucleic acids detected. 05/04/2025 8:33 PM CDT [facility] Stool STOOL SPECIMEN / Unknown 05/04/2025 7:00 PM CDT 05/04/2025 7:00 PM CDT Narrative [facility] - 05/04/2025 8:33 PM CDT The Film Array GI Panel is a multiplexed nucleic acid detection test for 22 targets of bacteria, viruses, and parasites in stool that cause infectious diarrhea. Bacteria: Campylobacter C. difficile Plesiomonas shigelloides Salmonella Vibrio Vibrio cholerae Yersinia enterocolitica Enteroaggregative E. Coli (EAEC) Enteropathogenic E. Coli (EPEC) Enterotoxigenic E. Coli (ETEC) Shiga-like toxin-producing E. Coli (STEC) E. Coli O157 Shigella/Enteroinvasive E. Coli (EIEC) Viruses: Adenovirus F 40/41 Astrovirus Norovirus GI/GII Rotavirus A Sapovirus Parasites: Cryptosporidium Cyclospora cayetanensis Entamoeba histolytica Giardia duodenalis Jessica Aragon PA-C MICROBIOLOGY - GENERAL OR DERABLES Final Result [facility]# [id number] [address] [facility] [place] [address] * VITAMIN B12 AND FOLATE (05/04/2025 4:11 PM CDT) Only the most recent of2 resultswithin the time period is included. VITAMIN B12 534 232 - 1,245 pg/mL 05/04/2025 5:19 PM CDT [facility] Comment:It has been reported that between 5 to 10% of patients with values between 200 and 400 pg/mL may experience neuropsychiatric and hematologic abnormalities due to occult B12 deficiency. Less than 1% of patients with values above 400 pg/mL will have symptoms. FOLATE, SERUM >20.0 >4.5 ng/mL 05/04/2025 5:19 PM CDT [facility] LABORATORY [facility] Blood Venipuncture / Unknown 05/04/2025 4:11 PM CDT 05/04/2025 4:24 PM CDT Result [facility] Jessica Aragon PA-C CHEMISTRY ORDERABLES Maryanne l Result [facility]# [id number] [address] [place] [address] * (ABNORMAL) KETONES/BETA HYDROXYBUTYRATE (05/04/2025 9:42 AM CDT) BETA HYDROXYBUTYRATE 2.2(H) <0.4 mmol/L 05/04/2025 11:19 AM CDT [facility] Blood Venipuncture / Unknown 05/04/2025 9:42 AM CDT 05/04/2025 9:45 AM CDT Result [facility] Randa Sosa MD CHEMISTRY ORDERABLES Final Result [facility]# [id number] [address] [place] [address] * TSH (05/04/2025 9:42 AM CDT) TSH 1.82 0.27 - 4.20 uIU/mL 05/04/2025 10:30 AM CDT [facility] [employer] [facility] Blood Venipuncture / Unknown 05/04/2025 9:42 AM CDT 05/04/2025 9:45 AM CDT Result [facility] Jessica Aragon PA-C CHEMISTRY ORDERABLES Maryanne l Result [facility]# [id number] [address] [place] [address] * (ABNORMAL) BLOOD GAS VENOUS (05/04/2025 9:42 AM CDT) PH, VENOUS 7.36 7.32 - 7.43 05/04/2025 9:50 AM CDT [facility] LABORATORY SERVICES [facility] PCO2 VENOUS 42 38 - 50 mm Hg 05/04/2025 9:50 AM CDT [facility] LABORATORY [facility] PO2 VENOUS 96(H) 25 - 40 mm Hg 05/04/2025 9:50 AM CDT [facility] LABORATORY [facility] HCO3 VENOUS 23 22 - 29 mmol/L 9:50 AM CDT [facility] LABORATORY [facility] BASE EXCESS VENOUS -1.7 Reference Range Not Established mmol/L 05/04/2025 9:50 AM T [facility] LABORATORY [facility] HEMOGLOBIN VENOUS 13.7 No Ref Range Estab g/dL 05/04/2025 9:50 AM T [facility] LABORATORY [facility] O2 SAT EST VENOUS 98(H) 40 - 70 % 05/04/2025 9:50 AM T [facility] LABORATORY [facility] Blood, venous 05/04/2025 9:4 2 AM CDT 05/04/2025 9:45 AM CDT Akosua Bourgeois MD ABG ORDERABLES Final Resu lt [facility]# [id number] [address] [place] [address] * DC PROGRAM EVAL, IMPLANT DEVICE CARDVERT/DEFIB,MULTI-LEAD W/IN GLOBAL (04/18/2025 3:01 PM CDT) Only the most recent of3 resultswithin the time period is included. 04/18/2025 3:01 PM CDT Narrative INTERFACE SYSTEM - 04/19/2025 8:09 AM CDT Sarath Alatorre RN 04/19/2025 8:11 AM ICD interrogation: GLOBAL < 91 days. Appropriate BiV device function. VVIR mode. 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 Per epic, pt takes metoprolol, Plavix, Eliquis. Scheduled for remote in 3 mos. LRL set to 80 bpm (70). Tani Patel MD CARDIAC SERVICES ORDERABLES Ed ited Result - Final INTERFACE SYSTEM Refer to clinic/hospital department * (ABNORMAL) HEMOGLOBIN AND HEMATOCRIT (03/17/2025 4:23 PM CDT) HEMOGLOBIN 11.7(L) 13.6 - 16.5 g/dL 03/17/2025 5:06 PM CDT [employer] LABORATORY SERVICES [facility] HEMATOCRIT 36.0(L) 40.0 - 48.0 % 03/17/2025 5:06 PM CDT [facility] Blood Venipuncture / Unknown 03/17/2025 4:23 PM CDT 03/17/2025 4:53 PM CDT Nova Marks NP HEMATOLOGY ORDERABLES Final Result [facility] LABORATORY SERVICES [facility] CLIA# [id number] [address] [place] [address] * (ABNORMAL) IRON, TIBC, AND PERCENT SATURATION (03/17/2025 1:10 PM CDT) IRON 54(L) 59 - 158 ug/dL 03/17/2025 1:51 PM CDT [employer] LABORATORY SERVICES [facility] TIBC 325 250 - 450 ug/dL 03/17/2025 1:51 PM CDT [facility] LABORATORY [facility] IRON % SATURATION 17(L) 20 - 50 % 03/17/2025 1:51 PM CDT [facility] LABORATORY [facility] TRANSFERRIN 256 200 - 360 mg/dL 03/17/2025 1:51 PM CDT [facility] LABORATORY [facility] Blood Venipuncture / Unknown 03/17/2025 1:10 PM CDT 03/17/2025 1:10 PM CDT us Nova Marks NP CHEMISTRY ORDERABLES Final Result [facility]# [id number] [address] [place], [place] [id number] * ECHO LIMITED WO DOPPLER (03/17/2025 12:10 PM CDT) EJECTION FRACTION EF: INTERFACE SYSTEM 03/17/2025 11:5 6 AM CDT Narrative INTERFACE SYSTEM - 03/17/2025 1:[address] PM [address] [address] [email or web address] Transthoracic Echocardiogram (Report amended ) Patient: Kameron Man Study ID: ECHO LIMITED WO Gender: M : 1945 Age: 79 Race: CAU Height 180.3cm Study Date: 03/17/2025 Weight: 118.8kg Access. #: [id number] BP: *Referring Physician:* Adrienne Mullen *Ordering Physician:* Adrienne Mullen php mysql developer: Nurse: Indications: Evaluate for pericardial effusion. Limited [...] - 1.0 1.3 Legend: (L) and (H) david values outside specified reference range. (N) phillips [...] Study time: 11:56 AM. Amended Stanislaw Lerner [id number] Procedure Note Stanislaw Lernre MD - 03/17/2025 [place] [place] [address] [email or web address] Transthoracic Echocardiogram (Report amended ) Patient: Kameron Man Study ID: ECHO LIMITED WO Gender: M : 1945 Age: 79 Race: CHANDA Height 180.3cm Study Date: 03/17/2025 Weight: 118.8kg Access. #: [id number] BP: *Referring Physician:* Adrienne Mullen *Ordering Physician:Adrienne Ford php mysql developer: Nurse: Indications: Evaluate for pericardial effusion. Limited [...] - 1.0 1.3 Legend: (L) and (H) david values outside specified reference range. (N) phillips [...] Study time: 11:56 AM. Amended Stanislaw Lerner [id number] us Adrienne Mullen CUTLERY GRINDER US ORDERABLES Edited Res ult - Final INTERFACE SYSTEM Refer to clinic/hospital department * POC LACTIC ACID (03/17/2025 10:56 AM CDT) LACTIC ACID POC 1.3 <=2.0 mmol/L 03/17/2025 10:56 AM CDT [employer] LABORATORY SERVICES [facility] SPECIMEN SOURCE, GASES POC Blank 03/17/2025 10:56 AM CDT [employer] LABORATORY SERVICES [facility] COMMENT, GASES POC Responsible Clinical Caregiver notified 03/17/2025 10:56 AM CDT [employer] [facility] Blood 03/17/2025 10:5 6 AM CDT 03/17/2025 10:58 AM CDT us Aravind Jones DO POINT OF CARE TESTING Final Resu lt [facility] [employer] [facility] CLIA# [id number] [place] [address] [place] [address] * TYPE AND SCREEN (03/17/2025 10:50 AM CDT) Only the most recent of2 resultswithin the time period is included. ABO GROUP A 03/17/2025 12:00 PM CDT [facility] LABORATORY SERVICES -- [facility] RH (D) TYPE Positive 03/17/2025 12:00 PM CDT [facility] LABORATORY SERVICES -- [facility] ANTIBODY SCREEN Negative 03/17/2025 12:00 PM CDT [facility] LABORATORY SERVICES -- [facility] Blood Venipuncture / Unknown 03/17/2025 10:50 AM CDT 03/17/2025 10:58 AM CDT us Aravind Jones DO BLOOD BANK ORDERABLES Edited Res ult - Final [facility] LABORATORY SERVICES -- [facility] CLIA# [id number] [address] [facility] [place] [place] [address] * XR CHEST PA OR AP 1 [...] process is identified. DICTATION LOCATION: Location 4 Aravindkyle Jones DO DIAGNOSTIC IMAGING ORDERABLES Fi nal Result * PULSE OXIMETRY, WITH EXERCISE (03/12/2025 12:14 PM CDT) Narrative [facility] CARDIOLOGY - 03/12/2025 12:14 PM CDT Rogelio Fierro, PLATE TAKE OUT WORKER 03/12/2025 12:16 PM OXYGEN WALK STUDY Oxygen [...] The patient ambulated 100 ft. Please call [phone] for any questions about this walk study. Jayda Nagel MD PFT ORDERABLES Final Result [facility] CARDIOLOGY [address] [place] [address] * PACEMAKER UPGRADE TO ICD (03/11/2025 5:41 PM CDT) [facility] HEART AND VASCULAR - 03/11/2025 6:16 PM CDT CONCLUSION: 1. Successful upgrade from a dual chamber pacemaker system to a multichamber (biventricular) ICD system as described with [facility] equipment. 2. Successful AV junction ablation as described RECOMMENDATIONS: GDMT for cardiomyopathy and CHF Chivo Moreland MD Clay Temperer Clinical Cardiac Port Traffic Manager Estimated Blood Loss There was minimal blood loss during procedure. Procedure Details OPERATIVE PROCEDURE: UPGRADE FROM DUAL CHAMBER PACEMAKER SYSTEM TO BIVENTRICULAR ICD SYSTEM AND AV JUNCTION ABLATION Date of procedure: 03/11/2025 Cardiac Port Traffic Manager: Chivo Moreland MD Indication for procedure: [...] wire technique through the sheath, a 7 [place] and a 9 Fr peel-away sheaths were [...] procedure well. Multi-chamber ICD generator: [facility] [place] HF The right atrial lead was implanted [...] for cardiomyopathy and CHF Chivo Moreland MD Clay Temperer Clinical Cardiac Port Traffic Manager Adrienne Mullen CUTLERY GRINDER CUP EP ORDERABLES Final Re sult Performing Organization Address [facility]/ZIP Co de Phone Number [facility] HEART AND VASCULAR CLIA #[id number] [address] [facility], [facility] [address] [place] [address] * PROTIME-INR (03/11/2025 4:16 AM CDT) PROTIME 13.1 12.7 - 15.1 Seconds 03/11/2025 5:30 AM CDT [facility] LABORATORY [facility] INR 1.0 0.9 - 1.1 03/11/2025 5:30 AM CDT [facility] LABORATORY [facility] Blood Venipuncture / Unknown 03/11/2025 4:16 AM CDT 03/11/2025 5:04 AM CDT [facility] LABORATORY [facility] - 03/11/2025 5:30 AM CDT INR Therapeutic Range: Adult: 2.0 - 3.0 for pulmonary embolism or prophylaxis against venous thrombosis or systemic embolization. 2.0 - 3.0 for patients with tissue heart valves. 2.5 - 3.5 for patients with mechanical heart valves or post TX. Pediatric (12 years and under): 1.5 - 3.0 Although the target range in children is not well established, INR values of 1.5 - 3.0 are recommended for most patients. Higher values have been used in children with prosthetic cardiac valves and hereditary clotting disorders. (<3 days) therapeutic ranges have not been established. Adrienne Mullen CUTLERY GRINDER HEMATOLOGY ORDERABLES Maryanne l Result Performing Organization Address City/[facility]/ZIP Co de Phone Number [facility] LABORATORY [facility] CLIA# [id number] [address] [place] [address] * (ABNORMAL) HEMOGLOBIN A1C (03/09/2025 4:18 PM CDT) HEMOGLOBIN A1C 9.4(H) <5.7 % 03/09/2025 10:32 PM CDT [facility] LABORATORY [facility] EST. AVG GLUCOSE, A1C 223 mg/dL 03/09/2025 10:32 PM CDT [facility] LABORATORY [facility] Blood Venipuncture / Unknown 03/09/2025 4:18 PM CDT 03/09/2025 4:29 PM CDT Narrative [facility] LABORATORY [facility] - 03/09/2025 10:32 PM CDT HGB A1C INTERPRETATION NORMAL: <5.7% PRE-DIABETES: 5.7 - 6.4% DIABETES: 6.5% OR GREATER Natacha Ellis OFFICE COORDINATOR CHEMISTRY ORDERABLES Final Result [facility] CLIA# [id number] [address] [place] [address] * DC PROGRAM EVAL IMPLANTABLE IN PERSN DUAL LD PACER (03/09/2025 3:39 PM CDT) 03/09/2025 3:39 PM CDT Narrative INTERFACE SYSTEM - 03/09/2025 3:[address] [facility] Pacemaker interrogation: LW add on - RVR Appropriate dual chamber device function. Battery: 12.5 years Presenting: AFL/Drill Bit Sharpener at 114bpm Underlying: AFL w/ IC at 90-120bpm Ap <1% Drill Bit Sharpener 54% AF burden 56%, Vrates >110bpm ~25% No ventricular arrhythmias noted Device programmed VVIR 80 per LW. Pt reporting to ED following OV Per epic, pt takes metoprolol, plavix, amiodarone, eliquis Scheduled for remote in 3 months Procedure Note Provider, Historical - 03/09/2025 SJM Pacemaker interrogation: LW add on - RVR Appropriate dual chamber device function. Battery: 12.5 years Presenting: AFL/Drill Bit Sharpener at 114bpm Underlying: AFL w/ IC at 90-120bpm Ap <1% Drill Bit Sharpener 54% AF burden 56%, Vrates >110bpm ~25% No ventricular arrhythmias noted Device programmed VVIR 80 per LW. Pt reporting to ED following OV Per epic, pt takes metoprolol, plavix, amiodarone, eliquis Scheduled for remote in 3 months Result [facility] Tani Patel MD CARDIAC SERVICES ORDERABLES Ed [...] specialty: no Care discussed with: admitting provider Reid Franco MD PROCEDURE/MINOR SURGICAL ORDERAB LES Final Result * (ABNORMAL) LIPID PANEL (05/21/2022 2:46 PM CDT) CHOLESTEROL 153 <200 mg/dL Process System [facility] HDL 48 > OR = 40 mg/dL [facility] TRIGLYCERIDE 266(H) <150 mg/dL [facility] Comment: If a non-fasting specimen was collected, consider repeat triglyceride testing on a fasting specimen if clinically indicated. Darshan et al. J. of Clin. Lipidol. 2015;9:129-169. LDL CALCULATED 70 mg/dL (calc) [facility] Comment: Reference range: <100 Desirable range <100 mg/dL for primary prevention; <70 mg/dL for patients with CHD or diabetic patients with > or = 2 CHD risk factors. LDL-C is now calculated using the Ariane calculation, which is a validated novel method providing better accuracy than the Friedewald equation in the estimation of LDL-C. Girma YING et al. GINA. 2013;310(19): 8258-5302 (http://education.Zurn/faq/ACA042) CHOL/HDL RATIO 3.2 <5.0 (calc) [facility] TOTAL NON-HDL CHOL(LDL+VLDL) 105 <130 mg/dL (calc) [facility] Comment: For patients with diabetes plus 1 major ASCVD risk factor, treating to a non-HDL-C goal of <100 mg/dL (LDL-C of <70 mg/dL) is considered a therapeutic option. Test Performed at: [place] [place] [address] [address] [address] Humberto Byers Blood 05/21/2022 2:46 PM CDT 05/21/2022 2:46 PM CDT Dominic Young MD CHEMISTRY ORDERABLES Final Resul t [facility] [phone] [place] [address] [address] [phone] * POC OCCULT BLOOD 1 CARD (01/21/2021 2:16 PM LICENSING REPRESENTATIVE) OCCULT BLOOD 1 CARD POC Negative Negative 01/21/2021 2:16 PM LICENSING REPRESENTATIVE [facility] ACCOUNT RESOLUTION ANALYST NAME POC LANE JAZZMINE Hector 01/21/2021 2:16 PM LICENSING REPRESENTATIVE [facility] [employer] [facility] Stool STOOL SPECIMEN / Unknown 01/21/2021 2:16 PM LICENSING REPRESENTATIVE 01/22/2021 10:40 AM LICENSING REPRESENTATIVE Minal Villegas MD POINT OF CARE TESTING Final Re sult [facility] Organization Address City/State/ZIP Co de Phone Number [facility]# [id number] [address] [place] [address] from Last 3 Months or Most Recently Relevant to Health Maintenance Insurance MEDICARE PART A AND B BCBS SUPP RX PRIME [employer]ER[employer] Medicare Part D RX [employer] PLANS (INTERNAL) [facility] Plans RX EMDEON Commercial Advance Directives For more information, please contact: [phone] Documents on File Type Date Recorded Patient Steward/Stewardess Bath Expl anation Advance Directive POA 02/07/2021 9:09 AM Mental Health Advanced Directive 01/09/2021 4:17 PM Mental Health Advanc ed Directive * Full Code (Latest Code Status on File) Date Activated Date Inactivated Comments 05/07/2025 9:01 PM 05/18/2025 5:17 PM * Full Code Date Activated Date Inactivated Comments 05/04/2025 4:10 AM 05/06/2025 5:40 PM * Full Code Date Activated Date Inactivated Comments 03/17/2025 12:29 PM 03/19/2025 6:59 PM * Full Code Date Activated Date Inactivated Comments 03/11/2025 6:40 PM 03/12/2025 6:39 PM * Full Code Date Activated Date Inactivated Comments 03/11/2025 3:25 PM 03/11/2025 6:40 PM Care Teams Basting Machine Operator Relationship Specialty Start Date End Date Eric Pretty MD [address] [place] [address] PCP - General Internal Medicine 11/24/19
--- OUTSIDE RECORDS SUMMARY | 2025-06-06 11:40 | XMS_ITS | Encounter Summary ---
Author Organization [facility] Address [address] [place] [address] Care Team Providers Care Boom Master Name Role Phone Eric Pretty MD Primary Care Provider + Reason for Visit * Reason Onset Date Comments Medication Refill 06/06/2025 Encounter Details Date Type Department Care Team (Late st Contact Info) Description 06/06/2025 Telephone [facility] HEART AND VASCULAR EP AT [facility] [address] [place] [address] Cuauhtemoc Saez, [place] [address] [facility] [address] [place] [address] Medication Refill Social History Tobacco Use Types Packs/Day Years Used Date Smoking Tobacco: Every Day Pipe Smokeless Tobacco: Never Comments:Smokes a pipe 6-7x/ day Alcohol Use Standard Drinks/Week Comments No 0 (1 standard drink = 0.6 oz pur e alcohol) once a month a beer Sex and Gender Information Value Date Recorded Sex Assigned at Not on file 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 VM message left for Ms. Man regarding Mr. Man's medication requesting call back. Direct call backnumber provided. Cuauhtemoc Saez DNP to Me (Selected Message) 06/06/25 8:29 AM I would also restart his Torsemide at 5mg daily please Cuauhtemoc Saez DNP to Nd 06/04/25 10:45 AM Please D/c Metoprolol Me to Cuauhtemoc Saez DNP 06/03/25 12:54 PM Cuauhtemoc, Is it okay to discontinue Mr. Man's metoprolol? Has not been taking and was held while at rehab due to confusion and family request. Let me know. Thank you Johanna Me to Kameron Man 06/03/25 12:52 PM My mistake. I did see the note that he was no longer taking the metoprolol. It is still showing onhis med list. I will follow up with Cuauhtemoc and ask if we can discontinue the order so it no longer does show on the list. documented in this encounter Plan of Treatment Upcoming Encounters Date Type Department Care Team (Late st Contact Info) Description 07/20/2025 8:00 AM CDT Procedure visit [facility] HEART AND VASCULAR EP AT [address] [place] [address] 07/26/2025 2:00 PM CDT Office Visit [facility] HEART AND VASCULAR EP AT [address] [place] [address] Cuauhtemoc Saez DNP [address] [place] [address] [address] [place] [address] 08/08/2025 12:00 PM CDT Office Visit [facility] Heart and Vascular At [address] [place] [address] Dominic Young MD [address] [place] [address] [address] [place] [address] documented as of this encounter Visit Diagnoses Not on filedocumented in this encounter Care Teams Boom Master Relationship Specialty Start Date End Date Eric Pretty MD [address] [place] [address] PCP - General Internal Medicine 11/24/19 documented as of this encounter
--- OUTSIDE RECORDS SUMMARY | 2025-06-06 11:41 | XMS_ITS | Encounter Summary ---
Author Organization [facility] Address [address] [place] [address] Care Team Providers Care Construction Safety Consultant Name Role Phone Eric Pretty MD Primary Care Provider [phone] Kale MONTANA MD, Master Hunt Unavailable Dominic Young MD Unavailable [phone] Carlos Hernandez MD Unavailable [phone] Encounter Details Date Type Department Care Team (Late st Contact Info) Description 04/14/2019 Telephone [facility] [address] [place] [address] Kia Kwan MD [address] [facility] [address] [place] [address] Social History Tobacco Use Types [...] on file Legal Sex Male 3:50 PM EMISSION SPECIALIST Gender Identity Not on file Sexual Orientation [...] on stairs Contact your local community or [facility] for information on exercise, fall prevention programs, or options for improving home safety. documented as of this encounter Visit Diagnoses Not on filedocumented in this encounter Care Teams Construction Safety Consultant Relationship Specialty Start Date End Date Eric Pretty MD [address] [place] [address] PCP - General Internal Medicine 01/28/18 Master Henley III, MD [address] [place] [address] Consulting Physician Rheumatology 01/28/18 01/26/24 Dominic Young MD [address] [place] [address] Consulting Physician Cardiology 01/04/20 Carlos Hernandez MD [address] [place] [address] Consulting Physician Rheumatology 01/27/24 documented as of this encounter
--- OUTSIDE RECORDS SUMMARY | 2025-06-06 11:41 | XMS_ITS | Encounter Summary ---
Author Organization [facility] Address [address] [place] [address] Care Team Providers Care Sugar Presser Name Role Phone Eric Pretty MD Primary Care Provider + Encounter Details Date Type Department Care Team (Late st Contact Info) Description 06/03/2025 Orders Only [facility] HEART AND VASCULAR EP AT [address] [place] [address] Casie Dietz RN Social History Tobacco Use Types Packs/Day Years Used Date Smoking Tobacco: Every Day Pipe Smokeless Tobacco: Never Comments:Smokes a pipe 6-7x/ day Alcohol Use Standard Drinks/Week Comments No 0 (1 standard drink = 0.6 oz pur e alcohol) once a month a beer Sex and Gender Information Value Date Recorded Sex Assigned at Not on file Legal Sex Male 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 GATEKEEPER Gender Identity Not on file Sexual Orientation Not on file documented as of this encounter Plan of Treatment Upcoming Encounters Date Type Department Care Team (Late st Contact Info) Description 07/20/2025 8:00 AM CDT Procedure visit [facility] HEART AND VASCULAR EP AT [address] [place] [address] 07/26/2025 2:00 PM CDT Office Visit [facility] HEART AND VASCULAR EP AT [address] [place] [address] Cuauhtemoc Saez DNP [address] [place] [address] 08/08/2025 12:00 PM CDT Office Visit [facility] Heart and Vascular At [facility] [address] [place] [address] Dominic Young MD [address] [facility] [address] [place] [address] documented as of this encounter Visit Diagnoses Not on filedocumented in this encounter Care Teams Sugar Presser Relationship Specialty Start Date End Date Eric Pretty MD [address] [place] [address] PCP - General Internal Medicine 11/24/19 documented as of this encounter
--- OUTSIDE RECORDS SUMMARY | 2025-06-06 11:41 | XMS_ITS | Encounter Summary ---
Author Organization [facility] Address [address] [address] Care Team Providers Care Dental Ceramist Assistant Name Role Phone Jarvis Harding Primary Care Provider [phone] Jarvis Harding Primary Care Provider [phone] Kindra Fernandez MD Primary Care Provider Eric Pretty MD Primary Care Provider [phone] Kale MONTANA MD, Master Hunt Unavailable [phone] Dominic Young MD Unavailable [phone] Carlos Hernandez MD Unavailable [phone] Encounter Details Date Type Department Care Team (Late st Contact Info) Description 12/17/2016 Orders Only [facility] ProviderChuck MD [address] [place] [address] Social History Tobacco Use Types Packs/Day Years Used Date Smoking Tobacco: Former Alcohol Use Standard Drinks/Week Comments Yes 0 (1 standard drink = 0.6 oz pur e alcohol) Sex and Gender Information Value Date Recorded Sex Assigned at Not on file 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 Gender Identity Not on file Sexual Orientation [...] on filedocumented in this encounter Care Teams Dental Ceramist Assistant Relationship Specialty Start Date End Date Jarvis Harding [address] [place] [address] PCP - General 02/14/17 08/27/17 Jarvis Harding [address] [place] [address] PCP - General 07/13/14 02/13/17 Kindra Fernandez MD [address] [place] [address] PCP - General Family Practice 08/28/17 01/27/18 Eric Pretty MD [address] [place] [address] PCP - General Internal Medicine 01/28/18 Master Henley III, MD [address] [place] [address] Consulting Physician Rheumatology 01/28/18 01/26/24 Dominic Young MD [address] [place] [address] Consulting Physician Cardiology 01/04/20 Carlos Hernandez MD [address] [place] [address] Consulting Physician Rheumatology 01/27/24 documented as of this encounter
--- OUTSIDE RECORDS SUMMARY | 2025-06-06 11:41 | XMS_ITS | Encounter Summary ---
Author Organization [facility] Address [address] [address] Care Team Providers Care Stone Cleaner Name Role Phone Jarvis Harding Primary Care Provider [phone] Jarvis Harding Primary Care Provider [phone] Kindra Fernandez MD Primary Care Provider Eric Pretty MD Primary Care Provider [phone] Kale MONTANA MD, Master Hunt Unavailable [phone] Dominic Young MD Unavailable [phone] Carlos Hernandez MD Unavailable [phone] Encounter Details Date Type Department Care Team (Late st Contact Info) Description 11/07/2016 Orders Only [facility] ProviderChuck MD [address] [place] [address] Social History Tobacco Use Types Packs/Day Years Used Date Smoking Tobacco: Former Alcohol Use Standard Drinks/Week Comments Yes 0 (1 standard drink = 0.6 oz pur e alcohol) Sex and Gender Information Value Date Recorded Sex Assigned at Not on file 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 Gender Identity Not on file Sexual Orientation [...] on filedocumented in this encounter Care Teams Stone Cleaner Relationship Specialty Start Date End Date Jarvis Harding [address] [place] [address] PCP - General 02/14/17 08/27/17 Jarvis Harding [address] [place] [address] PCP - General 07/13/14 02/13/17 Kindra Fernandez MD [address] [place] [address] PCP - General Family Practice 08/28/17 01/27/18 Eric Pretty MD [address] [place] [address] PCP - General Internal Medicine 01/28/18 Master Henley III, MD [address] [place] [address] Consulting Physician Rheumatology 01/28/18 01/26/24 Dominic Young MD [address] [place] [address] Consulting Physician Cardiology 01/04/20 Carlos Hernandez MD [address] [place] [address] Consulting Physician Rheumatology 01/27/24 documented as of this encounter
--- OUTSIDE RECORDS SUMMARY | 2025-06-06 11:41 | XMS_ITS | Encounter Summary ---
Author Organization [facility] Address [address] [place] [address] Care Team Providers Care Land Mobile Radio Technician Name Role Phone Eric Pretty MD Primary Care Provider + Encounter Details Date Type Department Care Team (Late st Contact Info) Description 06/02/2025 Results Follow-Up [facility] HEART AND VASCULAR EP AT [address] [place] [address] Casie Dietz RN BASIC METABOLIC PANEL Social History Tobacco Use Types Packs/Day Years Used Date Smoking Tobacco: Every Day Pipe Smokeless Tobacco: Never Comments:Smokes a pipe 6-7x/ day Alcohol Use Standard Drinks/Week Comments No 0 (1 standard drink = 0.6 oz pur e alcohol) once a month a beer Sex and Gender Information Value Date Recorded Sex Assigned at Not on file 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 Gender Identity Not on file Sexual Orientation Not on file documented as of this encounter Plan of Treatment Upcoming Encounters Date Type Department Care Team (Late st Contact Info) Description 07/20/2025 8:00 AM CDT Procedure visit [facility] HEART AND VASCULAR EP AT [address] [place] [address] 07/26/2025 2:00 PM CDT Office Visit [facility] HEART AND VASCULAR EP AT [address] [place] [address] Cuauhtemoc Saez DNP [address] [facility] [address] [place] [address] 08/08/2025 12:00 PM CDT Office Visit [facility] Heart and Vascular At [facility] [address] [facility] [address] [place] [address] Dominic Young MD [facility] [address] [facility] [address] [place] [address] documented as of this encounter Visit Diagnoses Not on filedocumented in this encounter Care Teams Land Mobile Radio Technician Relationship Specialty Start Date End Date Eric Pretty MD [address] [place] [address] PCP - General Internal Medicine 11/24/19 documented as of this encounter
--- OUTSIDE RECORDS SUMMARY | 2025-06-06 11:41 | XMS_ITS | Encounter Summary ---
Author Organization [facility] Address [address] [place] [address] Phone Care Team Providers Care Oil Pipeline Operator Name Role Phone Eric Pretty MD Primary Care Provider [phone] Kale MONTANA MD, Master Hunt Unavailable [phone] Dominic Young MD Unavailable [phone] Carlos Hernandez MD Unavailable [phone] Reason for Referral * Diagnostic Imaging (Routine) - Closed Specialty Diagnoses / Procedures Referred By Contac t Referred To Contact Radiology Diagnoses Arthrodesis status Foraminal stenosis of lumbar region Lumbar radiculopathy Procedures CT Lumbar Spine WO Contrast Denise Walker CNS Phone: tel: fax: [facility] [address] Referral ID Status Reason Start Date Expiration Date Visits Re quested Visits Authorized [id number] Closed 03/08/2019 09/16/2020 1 1 * Consultation (Routine) - Closed Specialty Diagnoses / Procedures Referred By Contac t Referred To Contact Pain Management Diagnoses Arthrodesis status Foraminal stenosis of lumbar region Lumbar radiculopathy Denise Walker CNS Phone: tel: fax: Kia Kwan MD [address] [place] [address] Phone: tel: fax: Referral ID Status Reason Start Date Expiration Date V isits Requested Visits Authorized [id number] Closed Specialty Services Required 03/08/2019 09/16/2020 1 1 Scheduling Instructions Please schedule for left L4-L5 transforaminal injection.i Question Answer Please select the performing region: [facility] [[id number]] To provider: KIA KWAN [[id number]] # of visits: 1 Encounter Details Date Type Department Care Team (Late st Contact Info) Description 03/08/2019 Orders Only [facility] Orthopaedic Surgery [address] [facility] 1st [address] [place] [address] Denise Walker CNS [address] [facility] [address] [place] [address] Arthrodesis status (Primary Dx); Foraminal stenosis of [...] on file 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 Denise Walker [facility] IMG CT PROCEDURES Final Res ult documented in this encounter Visit Diagnoses Diagnosis Arthrodesis status- Primary Foraminal stenosis of lumbar region Lumbar radiculopathy Thoracic or lumbosacral neuritis or radiculitis, unspecified Arthrodesis status Foraminal stenosis of lumbar region Lumbar radiculopathy Thoracic or lumbosacral neuritis or radiculitis, unspecified documented in this encounter Care Teams Oil Pipeline Operator Relationship Specialty Start Date End Date Eric Pretty MD [address] [place] [address] PCP - General Internal Medicine 01/28/18 Master Henley III, MD [address] [place] [address] Consulting Physician Rheumatology 01/28/18 01/26/24 Dominic Young MD [address] [facility] [address] [place] [address] Consulting Physician Cardiology 01/04/20 Carlos Hernandez MD [address] [place] [address] Consulting Physician Rheumatology 01/27/24 documented as of this encounter
--- OUTSIDE RECORDS SUMMARY | 2025-06-06 11:41 | XMS_ITS | Encounter Summary ---
Author Organization [facility] Address [address] [facility] [address] [place] [address] Care Team Providers Care Reinforcer Name Role Phone Jarvis Harding Primary Care Provider Jarvis Harding Primary Care Provider Jarvis Harding Primary Care Provider Jarvis Harding Primary Care Provider Jarvis Harding Primary Care Provider Jarvis Harding Primary Care Provider Kindra Fernandez MD Primary Care Provider Eric Pretty MD Primary Care Provider [phone] Kale MONTANA MD, John J. 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 Gender Identity Not on file Sexual [...] on filedocumented in this encounter Care Teams Reinforcer Relationship Specialty Start Date End Date Jarvis Harding [address] [place] [address] PCP - General 02/14/17 08/27/17 Jarvis Harding [address] [place] [address] PCP - General 07/13/14 02/13/17 Jarvis Harding [address] [place] [address] PCP - General 03/03/12 07/12/14 Jarvis Harding [address] [place] [address] PCP - General 02/18/12 03/02/12 Jarvis Harding [address] [place] [address] PCP - General 02/11/12 02/17/12 Jarvis Harding [address] [place] [address] PCP - General 07/24/11 02/10/12 Kindra Fernandez MD [address] [place] [address] PCP - General Family Practice 08/28/17 01/27/18 Eric Pretty MD [address] [place] [address] PCP - General Internal Medicine 01/28/18 Master Henley III, MD [address] [facility] [address] [address] [place] [address] Consulting Physician Rheumatology 01/28/18 01/26/24 Dominic Young MD [address] [place] [address] Consulting Physician Cardiology 01/04/20 Carlos Hernandez MD [address] [place] [address] Consulting Physician Rheumatology 01/27/24 documented as of this encounter
--- OUTSIDE RECORDS SUMMARY | 2025-06-06 11:41 | XMS_ITS | Continuity of Care Document ---
Author Organization Formerly [facility] Address [address] [place] [address] Phone Care Team Providers Care Nut Cracker Name Role Phone Chance Monroy Unavailable Unavailable Procedures Procedure Date Visual Field Examination(s) Office/outpatient Visit, Est Corneal Pachymetry Fundus Photography W/ Report Eye Exam, New Patient Advance Directives Directive Yes / No Effective Date File Name No Information Encounters Encounter Description Practice Location Reason(s) For Visit Diagnoses Date Provider Providers Copied on Encounter [facility], [address] [place] [address] [address], [place], [place], [id number], tel:[phone] [facility] No Information [address], [place], [address], . tel:[phone] Referring Provider: Alondra Thomas [address], [place], [address]. tel:[phone] Office/outpat ient Visit, Est [facility], [address] [place] [address] [address], [place], [place], [id number], tel:[phone] [facility] No Information 0[address], [place], [address], [place]. tel:[phone] Referring Provider: Chance Wagner, [address], [place], [address]. tel:[phone] [facility], [address], [place], [place], [id number], [place] tel:[phone] [facility] No Information [address]. [address] [facility] , [address], [place], [address], [place]. tel:[phone] Family History Family Member Type Diagnosis Age [...]
--- OUTSIDE RECORDS SUMMARY | 2025-06-06 13:30 | XMS_ITS | Referral Summary ---
Author Organization [facility] [address] Address [address] [place] [address] Care Team Providers Care Meat Products Demonstrator Name Role Phone Eric Pretty MD Primary Care Provider [phone] Dominic Young MD Unavailable Carlos Hernandez MD Unavailable [phone] Encounters Date Type Department Care Team Description 04/08/2025 Telephone [facility] [address] [place] [phone] Natacha Henley 04/01/2025 Telephone [facility] [address] [place] [phone] Olga Goodson Please schedule next Reclast. Thank you! 04/01/2025 1:15 PM CDT Office Visit [facility] [address] [place] [phone] Olga Bueno PA Rheumatoid arthritis of [...] occurs. Assessment & Plan (12/24/2024 12:49 PM [facility] BMD 06/09/24: LFN 0.761, tscore -1.2 Total [...] occurs. Assessment & Plan (09/23/2024 2:49 PM [facility]): BMD 06/09/24: LFN 0.761, tscore -1.2 Total [...] candidate Assessment & Plan (09/23/2024 1:14 PM [facility]): Xrays 2016: Moderate osteoarthritis of the acromioclavicular [...] walks. Assessment & Plan (12/12/2022 3:07 PM [facility]): R shoulder hurting for the past 2-3 days. May have been triggered by carrying in grocery bags. Hx rotator cuff tears per pt's report. Recommend heat/ice, rest. Will order PT. Consider seeing ortho if not improving Atherosclerotic cardiovascular disease Assessment & Plan (11/12/2022 3:08 PM [facility]): S/p multiple MIs/cardiac arrest, sick sinus, CHF. Has pacemaker. 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 On eliquis and clopidogrel History of DVT of lower extremity 11/12/2022 History of prostate cancer 11/12/2022 Overview (11/12/2022): Treated with radiation in 2017 Chronic pain syndrome 12/16/2021 Type 2 diabetes mellitus wit h diabetic neuropathy, unspecified 11/17/2020 Chronic pain of right knee 06/08/2019 Assessment & Plan (09/23/2024 1:05 PM [facility] Mild OA on xray from 06/04. Had [...] benefit. Assessment & Plan (01/04/2020 12:03 PM [facility]): Mild OA on xray from 06/04. Had cortisone shots years ago but they spiked his sugars. Had zilretta on 10/29/19 as this formulation causes less systemic steroid effect than regular triamcinolone injection. However, he reported no benefit. Assessment & Plan (10/26/2019 2:15 PM [facility] Mild OA on xray from 06/04. Had [...] mgmt: [facility] (Lola Cerna) in [facility] Assessment & Plan (04/01/2025 4:13 PM CDT): 3 prior back surgeries and still having a lot of pain. Decided against pursuing any more surgery. Has been to pain mgmt in [facility]. Continues to take gabapentin for neuropathic pain. Assessment & Plan (12/24/2024 2:28 PM [facility] 3 prior back surgeries and still having a lot of pain. Decided against pursuing any more surgery. Has been to pain mgmt in [facility]. Continues to take gabapentin for neuropathic pain. Assessment & Plan (09/23/2024 1:05 PM [facility]): 3 prior back surgeries and still having a lot of pain. Decided against pursuing any more surgery. Has been to pain mgmt in [facility]. Continues to take gabapentin for neuropathic pain. Assessment & Plan (06/22/2024 3:21 PM CDT): 3 prior back surgeries and still having a lot of pain. Decided against pursuing any more surgery. Has been to pain mgmt in [facility]. Continues to take gabapentin for neuropathic pain. Assessment & Plan (03/16/2024 4:37 PM CDT): 3 prior back surgeries and still having a lot of pain. Decided against pursuing any more surgery. Has been to pain mgmt in [facility]. Continues to take gabapentin for neuropathic [...] surgery. Has been to pain mgmt in [facility]. Continues to take gabapentin for neuropathic pain Assessment & Plan (07/28/2023 3:39 PM CDT): 3 prior back surgeries and still having a lot of pain. Decided against pursuing any more surgery. Has been to pain mgmt in [facility]. Continues to take gabapentin for neuropathic pain Assessment & Plan (05/27/2023 4:30 PM CDT): 3 prior back surgeries and still having a lot of pain. Thinking about going back to see nsg for opinion if there is anything else he can do. Has been to pain mgmt in [facility]. Continues to take gabapentin for neuropathic pain Assessment & Plan (11/12/2022 3:05 PM [facility] 3 prior back surgeries and he does not want to have any additional surgery. Sees pain mgmt in [facility]. Discussed pain stimulator but he deferred for now. Continues to take gabapentin for neuropathic pain Assessment & Plan (01/04/2020 12:04 PM [facility] No surgery planned. Continue to f/u with pcp and pain mgmt. Encouraged to continue water exercise. Declines PT. Discuss weight loss treatments with pcp. He used to be on duloxetine for mood and chronic pain and can't remember why he stopped. He would be willing to restart this now. Begin 30mg daily. Assessment & Plan (10/26/2019 2:16 PM [facility] No surgery planned. Continue to f/u with [...] & Plan (08/21/2018 2:15 PM CDT): Saw textile colorist dyer who put him back on midodrine. Just [...] quantiferon 12/18 Neg hepatitis 12/18 utd , [id number], yearly flu shot. Had shingrix Had RSV vaccine Had original COVID vaccine series but not additional boosters Assessment & Plan (12/24/2024 12:50 PM [facility] Neg quantiferon 12/18 Neg hepatitis 12/18 utd [id number], [id number], yearly flu shot. Had shingrix Had RSV vaccine Had original COVID vaccine series but not additional boosters Assessment & Plan (09/23/2024 1:19 PM [facility]): Neg quantiferon 12/18 Neg hepatitis 12/18 utd ittivfq32, , yearly flu shot. Had shingrix Had RSV vaccine Had original COVID vaccine series but not additional boosters Assessment & Plan (06/22/2024 1:27 PM CDT): Neg quantiferon 12/18 Neg hepatitis 12/18 utd [id number], [id number], yearly flu shot. Recommend shingrix, COVID booster Assessment & Plan (03/16/2024 2:20 PM CDT): Neg quantiferon 12/18 Neg hepatitis 12/18 utd [id number], [id number], yearly flu shot. Recommend shingrix, COVID booster Assessment & Plan (01/27/2024 1:06 PM CDT): Neg quantiferon 12/18 Neg hepatitis 12/18 utd [id number], [id number], yearly flu shot. Recommend shingrix, COVID booster Assessment & Plan (10/28/2023 3:46 PM [facility] Neg quantiferon 12/18 Neg hepatitis 12/18 utd [id number], [id number], yearly flu shot. Recommend shingrix, COVID booster Assessment & Plan (07/28/2023 2:25 PM CDT): Neg quantiferon 12/18 Neg hepatitis 12/18 utd [id number], yemprnpds39, yearly flu shot. Recommend shingrix, COVID booster Assessment & Plan (05/27/2023 1:55 PM CDT): Neg quantiferon 12/18 Neg hepatitis 12/18 utd , , flu shot. Recommend shingrix, COVID boosters if not done Assessment & Plan (04/17/2023 4:33 PM CDT): Neg quantiferon 12/18 Neg hepatitis 12/18 utd [id number], [id number], flu shot. Recommend shingrix, COVID boosters if not done Assessment & Plan (12/12/2022 3:06 PM [facility] Neg quantiferon 12/18 Neg hepatitis 12/18 utd [id number], [id number], flu shot. Recommend shingrix, COVID boosters if not done Will advise Evusheld if he goes back on Rituxan in the future Assessment & Plan (11/12/2022 3:05 PM [facility]): Neg quantiferon 12/18 Neg hepatitis 12/18 utd dbojgbw02, [id number], flu shot. Recommend shingrix, COVID boosters if not done Will advise Evusheld if he goes back on Rituxan in the future Assessment & Plan (01/04/2020 11:23 AM [facility]): Neg quantiferon 12/18 Neg hepatitis 12/18 utd driztvw63, ievdeopyy17, flu shot. Recommend shingrix Assessment & Plan (10/26/2019 11:19 AM [facility]): Neg quantiferon 12/18 Neg hepatitis 12/18 utd idhfery79, uraolfvbe13, flu shot. 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 Symptoms currently improved. textile colorist dyer Dr. Young. Requested lipid panel so will [...] (02/21/2017): Seasonal allergies Rheumatoid arthritis of [facility] sites with negative rheumatoid factor [...] needed Assessment & Plan (12/24/2024 2:28 PM [facility]): cdai = 33, high Was not seen [...] needed Assessment & Plan (09/23/2024 2:48 PM [facility]): cdai = 17, moderate Was not seen [...] weeks Assessment & Plan (10/28/2023 3:45 PM [facility]): cdai = 10, low, improving Was not [...] month Assessment & Plan (12/12/2022 3:05 PM [facility]): cdai = 27, high Last seen in [...] month Assessment & Plan (11/12/2022 3:10 PM [facility]): cdai = 32, high Last seen in [...] month Assessment & Plan (01/04/2020 11:21 AM [facility]): cdai = 26, high Pt received first [...] months Assessment & Plan (10/26/2019 2:17 PM [facility]): cdai = 30 Pt received first Rituxan [...] today. Assessment & Plan (12/24/2018 9:58 PM [facility]): cdai = 13, low-moderate Pt received first [...] doing. Assessment & Plan (10/26/2018 9:41 AM [facility]): High cdai. Patient has been having more [...] on file Legal Sex Male 3:50 PM [facility] Gender Identity Not on file Sexual Orientation [...] home safety. Medical Devices Implanted Type Area Plain Goods Hemmer Device Identifier Shelf Expiration Date Model / Serial / Lot Stents Heart Description:cardiac stents Hardware Spine Lumbar Description:lumbar hardware Procedures Procedure Name Priority Date/Time Associated Diagnosis Comments COMPREHENSIVE METABOLIC PANEL Routine 12/24/2024 1:20 PM [facility] 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 factor (HCC) High risk medications (not anticoagulants) long-term use LIPID PANEL Routine 01/04/2020 11:48 AM [facility] HEPATITIS PANEL, ACUTE Routine 8 11:17 AM [facility] HEMOGLOBIN A1C Routine 08/05/2014 3:33 PM CDT from Last 3 Months or Most Recently Relevant to Health Maintenance Results * (ABNORMAL) Comprehensive metabolic panel (12/24/2024 1:20 PM [facility]) Pathologist [facility] Glucose 96 65 - 99 [...] [facility] Blood 12/24/2024 1:20 PM [facility] 12/24/2024 1:21 PM [facility] [address] LAB BLOOD ORDERABLES Fin al Result MARIANN Pinedo [address] [id number] * (ABNORMAL) Lipid panel (01/04/2020 11:48 AM [facility]) Cholesterol 155 <200 mg/dL [facility] [place] HDL 50 > OR = 40 mg/dL [facility] [place] Triglycerides 355(H) <150 mg/dL [facility] [place] Comment: If a non-fasting specimen was collected, consider repeat triglyceride testing on a fasting specimen if clinically indicated. Darshan et al. J. of Clin. Lipidol. 2015;9:129-169. LDL 62 mg/dL (calc) [facility] [place] Comment: Reference [...] LDL-C. Girma SS et al. GINA. 2013;310(19): 0394-5364 (http://education.Medical Referral Source.Reframe It/faq/ZCW460) Chol/HDL ratio 3.1 <5.0 (calc) [facility] [place] Non-HDL, (LDL+VLDL) 105 <130 mg/dL (calc) [facility] [place] Comment: For patients with diabetes plus 1 major ASCVD risk factor, treating to a non-HDL-C goal of <100 mg/dL (LDL-C of <70 mg/dL) is considered a therapeutic option. 01/04/2020 11:4 8 AM [facility] 01/04/2020 11:49 AM [facility] Narrative Resulting Agency Comment Performing Organization Information: Site ID: [place] Name: Mariann Pinedo Address: [address] [id number] Director: Dio Vaca D.O., MPH us [address] LAB BLOOD ORDERABLES Fin al Result Performing Organization Address City/State/[facility] Co de Phone Number [facility] [place] * Hepatitis panel, acute (11/03/2018 11:17 AM [facility]) Hep A IgM NON-REACTI VE NON-REACTI VE [facility] [place] HepBsAg NON-REACTI VE NON-REACTI VE [facility] [place] Hep B core IgM NON-REACTI VE NON-REACTI VE [facility] [place] Hep C Ab NON-REACTI VE NON-REACTI VE [facility] [place] SIGNAL TO CUT-OFF 0.02 <1.00 [facility] [place] 11/03/2018 11:1 7 AM [facility] 11/03/2018 11:18 AM [facility] Narrative Resulting Agency Comment Performing Organization Information: Site ID: [place] Name: Mariann Pinedo Address: [address] [place] [address] [place] [address] Director: Dio Vaca D.O., MPH us Master Henley III, MD LAB MICROBIOLOGY - GENERAL ORDERABLES Final Result Performing Organization Address [facility] Co de Phone Number [facility] [place] from Last 3 Months or Most Recently Relevant to [place] [address] MEDICARE MEDICARE [facility] MEDICARE [facility] Care Teams Meat Products Demonstrator Relationship Specialty Start Date End Date Eric Pretty MD [address] [facility] [address] INTERNAL MEDICINE [place], [place] [id number] PCP - General Internal Medicine 01/28/18 Dominic Young MD [address] [facility] [address] [place] [address] Consulting Physician Cardiology 01/04/20 Carlos Hernandez MD [address] [place] [address] Consulting Physician Rheumatology 01/27/24
--- OUTSIDE RECORDS SUMMARY | 2025-06-06 13:30 | XMS_ITS | Clinical Summary ---
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
--- OUTSIDE RECORDS SUMMARY | 2025-06-06 13:30 | XMS_ITS | Clinical Summary ---
Author Organization [facility] [address] Address [address] [place] [address] Care Team Providers Care Director Of Labor And Delivery Name Role Phone Eric Pretty MD Primary Care Provider [phone] Dominic Young MD Unavailable [phone] Carlos Hrenandez MD Unavailable [phone] Allergies Active Allergy Reactions Criticality Noted [...] occurs. Assessment & Plan (12/24/2024 12:49 PM APPLICATION PROJECT LEADER): BMD 06/09/24: LFN 0.761, tscore -1.2 Total [...] occurs. Assessment & Plan (09/23/2024 2:49 PM APPLICATION PROJECT LEADER): BMD 06/09/24: LFN 0.761, tscore -1.2 Total [...] candidate Assessment & Plan (09/23/2024 1:14 PM APPLICATION PROJECT LEADER): Xrays 2016: Moderate osteoarthritis of the acromioclavicular [...] walks. Assessment & Plan (12/12/2022 3:07 PM APPLICATION PROJECT LEADER): R shoulder hurting for the past 2-3 days. May have been triggered by carrying in grocery bags. Hx rotator cuff tears per pt's report. Recommend heat/ice, rest. Will order PT. Consider seeing ortho if not improving Atherosclerotic cardiovascular disease Assessment & Plan (11/12/2022 3:08 PM APPLICATION PROJECT LEADER): S/p multiple MIs/cardiac arrest, sick sinus, CHF. Has pacemaker. [place] Dr. Young. On eliquis and clopidogrel History of DVT of lower extremity 11/12/2022 History of prostate cancer 11/12/2022 Overview (11/12/2022): Treated with radiation in 2017 Chronic pain syndrome 12/16/2021 Type 2 diabetes mellitus wit h diabetic neuropathy, unspecified 11/17/2020 Chronic pain of right knee 06/08/2019 Assessment & Plan (09/23/2024 1:05 PM APPLICATION PROJECT LEADER): Mild OA on xray from 06/04. Had [...] benefit. Assessment & Plan (01/04/2020 12:03 PM APPLICATION PROJECT LEADER): Mild OA on xray from 06/04. Had cortisone shots years ago but they spiked his sugars. Had zilretta on 10/29/19 as this formulation causes less systemic steroid effect than regular triamcinolone injection. However, he reported no benefit. Assessment & Plan (10/26/2019 2:15 PM APPLICATION PROJECT LEADER): Mild OA on xray from 06/04. Had [...] mgmt: [facility] (Lola Cerna) in [facility] Assessment & Plan (04/01/2025 4:13 PM CDT): 3 prior back surgeries and still having a lot of pain. Decided against pursuing any more surgery. Has been to pain mgmt in [facility]. Continues to take gabapentin for neuropathic pain. Assessment & Plan (12/24/2024 2:28 PM APPLICATION PROJECT LEADER): 3 prior back surgeries and still having a lot of pain. Decided against pursuing any more surgery. Has been to pain mgmt in [facility]. Continues to take gabapentin for neuropathic pain. Assessment & Plan (09/23/2024 1:05 PM APPLICATION PROJECT LEADER): 3 prior back surgeries and still having a lot of pain. Decided against pursuing any more surgery. Has been to pain mgmt in [facility]. Continues to take gabapentin for neuropathic pain. Assessment & Plan (06/22/2024 3:21 PM CDT): 3 prior back surgeries and still having a lot of pain. Decided against pursuing any more surgery. Has been to pain mgmt in [facility]. Continues to take gabapentin for neuropathic pain. Assessment & Plan (03/16/2024 4:37 PM CDT): 3 prior back surgeries and still having a lot of pain. Decided against pursuing any more surgery. Has been to pain mgmt in [facility]. Continues to take gabapentin for neuropathic [...] surgery. Has been to pain mgmt in [facility]. Continues to take gabapentin for neuropathic pain Assessment & Plan (07/28/2023 3:39 PM CDT): 3 prior back surgeries and still having a lot of pain. Decided against pursuing any more surgery. Has been to pain mgmt in [facility]. Continues to take gabapentin for neuropathic pain Assessment & Plan (05/27/2023 4:30 PM CDT): 3 prior back surgeries and still having a lot of pain. Thinking about going back to see nsg for opinion if there is anything else he can do. Has been to pain mgmt in [facility]. Continues to take gabapentin for neuropathic pain Assessment & Plan (11/12/2022 3:05 PM APPLICATION PROJECT LEADER): 3 prior back surgeries and he does not want to have any additional surgery. Sees pain mgmt in [facility]. Discussed pain stimulator but he deferred for now. Continues to take gabapentin for neuropathic pain Assessment & Plan (01/04/2020 12:04 PM APPLICATION PROJECT LEADER): No surgery planned. Continue to f/u with pcp and pain mgmt. Encouraged to continue water exercise. Declines PT. Discuss weight loss treatments with pcp. He used to be on duloxetine for mood and chronic pain and can't remember why he stopped. He would be willing to restart this now. Begin 30mg daily. Assessment & Plan (10/26/2019 2:16 PM APPLICATION PROJECT LEADER): No surgery planned. Continue to f/u with [...] & Plan (08/21/2018 2:15 PM CDT): Saw member of the legislative assembly who put him back on midodrine. Just [...] Neg quantiferon 12/18 Neg hepatitis 12/18 utd [id number], [id number], yearly flu shot. Had shingrix Had RSV vaccine Had original COVID vaccine series but not additional boosters Assessment & Plan (12/24/2024 12:50 PM APPLICATION PROJECT LEADER): Neg quantiferon 12/18 Neg hepatitis 12/18 utd ofdbdbj41, csyahaqxk12, yearly flu shot. Had shingrix Had RSV vaccine Had original COVID vaccine series but not additional boosters Assessment & Plan (09/23/2024 1:19 PM APPLICATION PROJECT LEADER): Neg quantiferon 12/18 Neg hepatitis 12/18 utd jigqcpu18, asmyzborw84, yearly flu shot. Had shingrix Had RSV vaccine Had original COVID vaccine series but not additional boosters Assessment & Plan (06/22/2024 1:27 PM CDT): Neg quantiferon 12/18 Neg hepatitis 12/18 utd bzdpryk27, , yearly flu shot. Recommend shingrix, COVID booster Assessment & Plan (03/16/2024 2:20 PM CDT): Neg quantiferon 12/18 Neg hepatitis 12/18 utd twepqbu63, yfapixirr36, yearly flu shot. Recommend shingrix, COVID booster Assessment & Plan (01/27/2024 1:06 PM CDT): Neg quantiferon 12/18 Neg hepatitis 12/18 utd qnwunse97, kbcnauxmr53, yearly flu shot. Recommend shingrix, COVID booster Assessment & Plan (10/28/2023 3:46 PM APPLICATION PROJECT LEADER): Neg quantiferon 12/18 Neg hepatitis 12/18 utd sekcfoe87, vakabqyoh43, yearly flu shot. Recommend shingrix, COVID booster Assessment & Plan (07/28/2023 2:25 PM CDT): Neg quantiferon 12/18 Neg hepatitis 12/18 utd jivakdo27, rbpujymfb08, yearly flu shot. Recommend shingrix, COVID booster Assessment & Plan (05/27/2023 1:55 PM CDT): Neg quantiferon 12/18 Neg hepatitis 12/18 utd wwpzocy38, aofxkwjze94, flu shot. Recommend shingrix, COVID boosters if not done Assessment & Plan (04/17/2023 4:33 PM CDT): Neg quantiferon 12/18 Neg hepatitis 12/18 utd gomfguz30, pupzgzkre15, flu shot. Recommend shingrix, COVID boosters if not done Assessment & Plan (12/12/2022 3:06 PM APPLICATION PROJECT LEADER): Neg quantiferon 12/18 Neg hepatitis 12/18 utd , trniugauu92, flu shot. Recommend shingrix, COVID boosters if not done Will advise Evusheld if he goes back on Rituxan in the future Assessment & Plan (11/12/2022 3:05 PM APPLICATION PROJECT LEADER): Neg quantiferon 12/18 Neg hepatitis 12/18 utd , zniahtoxq53, flu shot. Recommend shingrix, COVID boosters if not done Will advise Evusheld if he goes back on Rituxan in the future Assessment & Plan (01/04/2020 11:23 AM APPLICATION PROJECT LEADER): Neg quantiferon 12/18 Neg hepatitis 12/18 utd , yqackjcuz65, flu shot. Recommend shingrix Assessment & Plan (10/26/2019 11:19 AM APPLICATION PROJECT LEADER): Neg quantiferon 12/18 Neg hepatitis 12/18 utd eryflvm44, jklmndmdo16, flu shot. Recommend shingrix Assessment & Plan (08/10/2019 11:37 AM CDT): Neg quantiferon 12/18 Neg hepatitis 18 Assessment & Plan (06/08/2019 12:09 PM CDT): Neg quantiferon 12/18 Neg hepatitis 12/18 Assessment & Plan (03/26/2019 8:13 AM CDT): Neg quantiferon 12/18 Neg hepatitis 1218 Assessment & Plan (12/24/2018 9:59 PM APPLICATION PROJECT LEADER): Neg quantiferon / Neg hepatitis 11/03 Syncope and collapse 08/28/2017 Orthostasis 08/28/2017 Coronary artery disease invo lving [place] coronary artery of [place] heart with angina pectoris 08/28/2017 Assessment & Plan (01/04/2020 12:04 PM APPLICATION PROJECT LEADER): Pt had abnormal stress test followed by cardiac cath, stenting. Symptoms currently improved. member of the legislative assembly Dr. Young. Requested lipid panel so will [...] needed Assessment & Plan (12/24/2024 2:28 PM APPLICATION PROJECT LEADER): cdai = 33, high Was not seen [...] needed Assessment & Plan (09/23/2024 2:48 PM APPLICATION PROJECT LEADER): cdai = 17, moderate Was not seen [...] weeks Assessment & Plan (10/28/2023 3:45 PM APPLICATION PROJECT LEADER): cdai = 10, low, improving Was not [...] month Assessment & Plan (12/12/2022 3:05 PM APPLICATION PROJECT LEADER): cdai = 27, high Last seen in [...] month Assessment & Plan (11/12/2022 3:10 PM APPLICATION PROJECT LEADER): cdai = 32, high Last seen in [...] month Assessment & Plan (01/04/2020 11:21 AM APPLICATION PROJECT LEADER): cdai = 26, high Pt received first [...] months Assessment & Plan (10/26/2019 2:17 PM APPLICATION PROJECT LEADER): cdai = 30 Pt received first Rituxan [...] today. Assessment & Plan (12/24/2018 9:58 PM APPLICATION PROJECT LEADER): cdai = 13, low-moderate Pt received first [...] doing. Assessment & Plan (10/26/2018 9:41 AM APPLICATION PROJECT LEADER): High cdai. Patient has been having more [...] Type Department Care Team Description 04/08/2025 Telephone [facility] [address] [place] [phone] Natacha Henley 04/01/2025 1:15 PM CDT Office Visit [facility] [address] [place] [phone] Olga Bueno PA 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 factor (HCC) (Primary Dx); High risk medications (not anticoagulants) long-term use; Osteoarthritis of spine with radiculopathy, lumbar region; Age-related osteoporosis without current pathological fracture; Chronic systolic (congestive) heart failure (HCC) 04/01/2025 Telephone [facility] [address] [place] [phone] Olga Goodson Please schedule next Reclast. [...] 01/24/2016 - Hypertension Hypertension Hyperlipidemia Hyperlipidemia; Comments: [facility] 01/24/2016 - Gastroesophageal reflux disease GERD Depression Depression Rheumatoid arthritis ([facility]) Rheum atoid arthritis; Comments: [facility] 01/24/2016 - Anxiety disorder Anxiety Diabetic neuropathy ([facility]) Diabet ic neuropathy; Comments: [facility] 01/24/2016 - Benign prostatic hyperplasia BPH - Benign prostatic hypertrophy; Comments: [facility] 01/24/2016 - History of spinal surgery H/O Sp inal surgery; Comments: [facility] 01/24/2016 - Cancer ([facility]) Obesity Family History Medical History Relation [...] on file Legal Sex Male 3:50 PM APPLICATION PROJECT LEADER Gender Identity Not on file Sexual Orientation [...] on stairs Contact your local community or [facility] for information on exercise, fall prevention programs, or options for improving home safety. Medical Devices Implanted Type Area Cement Fittings Maker Device Identifier Shelf Expiration Date Model / Serial / Lot Stents Heart Description:cardiac stents Hardware Spine Lumbar Description:lumbar hardware Procedures Procedure Name Priority Date/Time Associated Diagnosis Comments COMPREHENSIVE METABOLIC PANEL Routine 12/24/2024 1:20 PM APPLICATION PROJECT LEADER 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 factor (HCC) High risk medications (not anticoagulants) long-term use LIPID PANEL Routine 01/04/2020 11:48 AM APPLICATION PROJECT LEADER HEPATITIS PANEL, ACUTE Routine 8 11:17 AM APPLICATION PROJECT LEADER HEMOGLOBIN A1C Routine 08/05/2014 3:33 PM CDT from Last 3 Months or Most Recently Relevant to Health Maintenance Results * (ABNORMAL) Comprehensive metabolic panel (12/24/2024 1:20 PM APPLICATION PROJECT LEADER) Pathologist [facility] Glucose 96 65 [...] [facility] Blood 12/24/2024 1:20 PM APPLICATION PROJECT LEADER 12/24/2024 1:21 PM APPLICATION PROJECT LEADER us [address] LAB BLOOD ORDERABLES Fin al Result [facility] [address] [place] [id number] * (ABNORMAL) Lipid panel (01/04/2020 11:48 AM APPLICATION PROJECT LEADER) Cholesterol 155 <200 mg/dL [facility] - [place] HDL 50 > OR = 40 mg/dL [facility] - [place] Triglycerides 355(H) <150 mg/dL [facility] - [place] Comment: If a non-fasting specimen was collected, consider repeat triglyceride testing on a fasting specimen if clinically indicated. Darshan et al. J. of Clin. Lipidol. 2015;9:129-169. LDL 62 mg/dL (calc) [facility] - [place] Comment: Reference range: <100 Desirable range <100 mg/dL for primary prevention; <70 mg/dL for patients with CHD or diabetic patients with > or = 2 CHD risk factors. LDL-C is now calculated using the Girma-Rachel calculation, which is a validated novel method providing better accuracy than the Friedewald equation in the estimation of LDL-C. Girma YING et al. GINA. 2013;310(19): 8273-8242 (http://education.FileThis/faq/LCL197) Chol/HDL ratio 3.1 <5.0 (calc) [facility] [place] Non-HDL, (LDL+VLDL) 105 <130 mg/dL (calc) [facility] [place] Comment: For patients with diabetes plus 1 major ASCVD risk factor, treating to a non-HDL-C goal of <100 mg/dL (LDL-C of <70 mg/dL) is considered a therapeutic option. 01/04/2020 11:4 8 AM APPLICATION PROJECT LEADER 01/04/2020 11:49 AM APPLICATION PROJECT LEADER Narrative Resulting Agency Comment Performing Organization Information: Site ID: AB Name: Mariann Pinedo Address: [address] [place] [address] [place] [address] Director: Dio Vaca D.O. MPH us [address] LAB BLOOD ORDERABLES Fin al Result [facility] [place] * Hepatitis panel, acute (11/03/2018 11:17 AM APPLICATION PROJECT LEADER) Hep A IgM NON-REACTI VE NON-REACTI VE [facility] [place] HepBsAg NON-REACTI VE NON-REACTI VE [facility] [place] Hep B core IgM NON-REACTI VE NON-REACTI VE [facility] [place] Hep C Ab NON-REACTI VE NON-REACTI VE [facility] [place] SIGNAL TO CUT-OFF 0.02 <1.00 [facility] [place] 11/03/2018 11:1 7 AM APPLICATION PROJECT LEADER 11/03/2018 11:18 AM APPLICATION PROJECT LEADER Narrative Resulting Agency Comment Performing Organization Information: Site ID: AB Name: Mariann Pinedo Address: [address] [place] [address] [place] [address] Director: Dio Vaca D.O., MPH Master Henley III, MD LAB MICROBIOLOGY - GENERAL ORDERABLES Final Result Performing Organization Address [facility] Co de Phone Number [facility] - [facility] [place] from Last 3 Months or Most Recently Relevant to Health [place] [address] [place] [address] MEDICARE MEDICARE [facility] MEDICARE [facility] Care Teams Director Of Labor And Delivery Relationship Specialty Start Date End Date Eric Pretty MD [address] [facility] [address] [place] [address] PCP - General Internal Medicine 01/28/18 Dominic Young MD [address] [facility] [address] [place] [address] Consulting Physician Cardiology 01/04/20 Carlos Hernandez MD [address] [place] [address] Consulting Physician Rheumatology 01/27/24
--- OUTSIDE RECORDS SUMMARY | 2025-06-06 13:30 | XMS_ITS | Continuity of Care Document ---
Author Organization [facility] Address [address] [place] [address] Phone Care Team Providers Care Syrup Machine Laborer Name Role Phone Chance Monroy Unavailable Unavailable Procedures Procedure Date Visual Field Examination(s) Office/outpatient Visit, Est Corneal Pachymetry Fundus Photography W/ Report Eye Exam, New Patient Advance Directives Directive Yes / No Effective Date File Name No Information Encounters Encounter Description Practice Location Reason(s) For Visit Diagnoses Date Provider Providers Copied on Encounter [facility], [address] [place] [address] [address], [place], [place], [id number], tel:[phone] [facility] No Information [address], [place], [address], . tel:[phone] Referring Provider: Alondra Thomas [address], [place], [address]. tel:[phone] Office/outpat ient Visit, Est [facility], [address] [place] [address] [address], [place], [place], [id number], tel:[phone] [facility] No Information 0-[address]. [address], [place], [address], [place]. tel:[phone] Referring Provider: Chance Wagner, [address], [place], [address]. tel:[phone] [facility], [address], [place], [place], [id number], [place] tel:[phone] [facility] No Information [address]. [address] [facility] , [address], [place], [address], [place]. tel:[phone] Family History Family Member Type Diagnosis Age [...]
--- OUTSIDE RECORDS SUMMARY | 2025-06-06 13:30 | XMS_ITS | Continuity of Care Document ---
Author Organization [facility] Address [address] [place] [address] Phone Care Team Providers Care Script Worker Name Role Phone Wally Ray MD Unavailable [...] OFFICE CONSULTATION POSTOP FOLLOW-UP VISIT OFFICE/OUTPATIENT VISIT [facility] Advance Directives Directive Yes / No Effective Date File Name No Information Encounters Encounter Description Practice Location Reason(s) For Visit Diagnoses Date Provider Providers Copied on Encounter OFFICE CONSULTATION [facility], [address], [address], [place] tel:[phone] [facility] [place] Biceps tendon tear 4 Flor Lo. [address], [place], [place], [id number] . tel: [phone] Referring Provider: Master Melendez, [address], [place], [address] . tel:[phone] [facility], [address], [place], [address], tel:[phone] [facility] Onychia of finger 4 Mike Pickens. [address] [place], [place], [id number] . tel: [phone] OFFICE/OUTPATI ENT VISIT [facility], [address] [facility], [place], [address], tel:[phone] [facility] [address] Mike Pickens. [address] [place], [place], [id number] . tel: [phone] Family History Family Member Type Diagnosis Age [...]
--- OUTSIDE RECORDS SUMMARY | 2025-06-06 13:31 | XMS_ITS | Clinical Summary ---
Author Organization [facility] Address [address] [place] [address] Care Team Providers Care Regional Commercial Sales Manager Name Role Phone Eric Pretty MD [...] unspecified site, unspecified whether rheumatoid factor present ([facility]) Take 1 Tablet by mouth [...] from the original. Dr. Dominic Young - Purchase Request Editor () Problem Noted Date Diagnosed Date Diabetes [...] (12/12/2021): Added automatically from request for surgery [id number] Generalized muscle weakness 01/22/2021 05/30/2021 Severe obesity [...] Neg quantiferon 11/03 Neg hepatitis 11/03 utd [id number], [id number], flu shot. Recommend shingrix Hyperlipidemia associated wi th type 2 diabetes mellitus 08/28/2017 05/10/2025 Hypotension 08/28/2017 05/10/2025 Overview (05/30/2021): Last Assessment & Plan: Saw message clerk who put him back on midodrine. Just started this today. Had episode of lightheadedness coming into the office today, better with sitting. Also describes vertigo sometimes and I suggested this might represent a different problem, discuss with pcp. 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 Symptoms currently improved. message clerk Dr. Young. Requested lipid panel so will [...] Type Department Care Team Description 06/06/2025 Telephone [facility] AT [address] [place] [address] Cuauhtemoc Saez DNP Medication Refill 06/03/2025 Refill [facility] AT [address] [place] [address] Cuauhtemoc Saez DNP 06/03/2025 Telephone [facility] AT [address] [place] [address] Cuauhtemoc Saez DNP Lab Results 06/03/2025 Orders Only [facility] AT [address] [place] [address] Casie Dietz RN 06/02/2025 Results Follow-Up [facility] AT [address] [place] [address] Casie Dietz RN BASIC METABOLIC PANEL 05/31/2025 2:15 PM CDT Office Visit [facility] AT [address] [place] [address] Cuauhtemoc Saez DNP Atrial flutter with rapid ventricular response (CMS/HCC) (Primary Dx); Longstanding persistent atrial fibrillation (CMS/HCC); Hx of atrioventricular node ablation; 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; intermediate (current) use of anticoagulants; Mixed hyperlipidemia; Benign hypertension 05/25/2025 Telephone [facility] AT [address] [place] [address] Cuauhtemoc Saez DNP Medication Concerns 05/24/2025 Telephone [facility] AT [address] [place] [address] Alethea Huffman, SUPERVISOR MAINTENANCE Edema 05/07/2025 2:55 PM CDT - 05/18/2025 3:07 PM CDT Hospital Encounter [facility] Surgery [address] [place] [address] Minal Villegas MD Hassan, Zahra Fatima, MD Counts, Lauren Rae, MD Dundoo, Gayathri, MD Austin, Karen, MD Acute metabolic encephalopathy Discharge Disposition: Group Home Fac(SNF) with Medicare Certification in Anticipation of Skilled Care 05/07/2025 Travel 05/04/2025 3:08 AM CDT - 05/06/2025 3:40 PM CDT Hospital Encounter [facility] Neuroscience [address] [place] [address] Akosua Bourgeois MD Counts, Lauren Rae, MD Acute metabolic encephalopathy Discharge Disposition: Rehab Facility IP 05/02/2025 Telephone [facility] AT [address] [place] [address] Elver Bazzi NP Medication Question 04/18/2025 2:30 PM CDT Procedure visit [facility] AT [address] [place] [address] NICM (nonischemic cardiomyopathy) (CMS/HCC) (Primary Dx); Encounter for implantable defibrillator reprogramming or check 04/18/2025 Telephone [facility] AT [address] [place] [address] Tani Patel MD Pacemaker issues 04/15/2025 9:00 AM CDT Office Visit [facility] AT [address] [place] [address] Akanksha Cueva NP NICM (nonischemic cardiomyopathy) (CMS/HCC) (Primary Dx); 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; Longstanding persistent atrial fibrillation (CMS/HCC); Mixed hyperlipidemia 04/15/2025 8:30 AM CDT Procedure visit [facility] AT [address] [place] [address] NICM (nonischemic cardiomyopathy) (CMS/HCC) (Primary Dx); 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; Longstanding persistent atrial fibrillation (CMS/HCC) 04/15/2025 Telephone [facility] AT [address] [place] [address] Tani Patel MD Symptoms 04/15/2025 Telephone [facility] V[facility] At [address] [place] [address] Akanksha Cueva NP Fatigue; Low Blood Pressure 04/05/2025 1:00 PM CDT Office Visit [facility] At [address] [place] [address] Erica Vizcarra NP Coronary artery disease involving douglas coronary artery of douglas heart without angina pectoris (Primary Dx); Benign hypertension; Paroxysmal atrial fibrillation with RVR (CMS/HCC) 03/31/2025 Results Follow-Up [facility] At [address] [place] [address] Yareli Kelsey RN BASIC METABOLIC PANEL, CBC WITH DIFFERENTIAL, BASIC METABOLIC PANEL 03/24/2025 10:30 AM CDT Office Visit [facility] At [address] [place] [address] Erica Vizcarra NP Chronic HFrEF (heart failure with reduced ejection fraction) (CMS/HCC) (Primary Dx); Coronary artery disease involving douglas coronary artery of douglas heart without angina pectoris; Mixed hyperlipidemia 03/17/2025 10:13 AM CDT - 03/19/2025 3:56 PM CDT Hospital Encounter [facility] Cardiac Progressive Care Unit [address] [place] [address] Aravind Jones DO Burke, Matthew Frederic, MD Khan, Mafaza, MD Fall Discharge Disposition: Home Health Care [facility] 03/17/2025 10:00 AM CDT Procedure visit [facility] Heart [facility] Vascular At [address] [place] [address] Cardiac pacemaker in situ (Primary Dx) 03/17/2025 9:30 AM CDT Procedure visit [facility] AT [address] [place] [address] Tachy-michael syndrome (CMS/HCC) (Primary Dx); Pacemaker 03/15/2025 External Device Data STL ABSTRACTION Provider, Abstract 03/15/2025 External Device Data STL ABSTRACTION Provider, Abstract 03/15/2025 External Device Data STL ABSTRACTION Provider, Abstract 03/11/2025 3:08 PM CDT Anesthesia Event [facility] Director Of Trauma [address] [place] [phone] Damion Agrawal MD Thro, Andrew, AA-C 03/11/2025 2:35 PM CDT - 03/11/2025 4:46 PM CDT Surgery [facility] Director Of Trauma [address] [place] [phone] Chivo Moreland MD Pacemaker upgrade to BiV ICD and AV node ablation 03/09/2025 4:14 PM CDT - 03/12/2025 4:39 PM CDT Hospital Encounter [facility] Card[facility] Progressive [facility] Unit [address] [place] [address] Margaret Crawford MD Ullery, Brian, MD Baig, Kamran A, MD Weitzel, MD Vinay Mane Anne, MD Burke, MD Robe Gregg Qin, MD Atrial flutter (CMS/HCC) Discharge Disposition: Home or Self Care 03/09/2025 3:00 PM CDT Procedure visit [facility] AT [address] [place] [address] Tachy-michael syndrome (CMS/HCC) (Primary Dx); Pacemaker 03/09/2025 3:00 PM CDT Office Visit [facility] AT [address] [place] [address] Tani Patel MD Atrial flutter with rapid [...] on file Legal Sex Male 6:01 AM FILM MASKER Gender Identity Not on file Sexual Orientation [...] Description 07/20/2025 8:00 AM CDT Procedure visit [facility] AT [address] [place] [address] 07/26/2025 2:00 PM CDT Office Visit [facility] [place] [address] [facility] [address] [place] [address] Cuauhtemoc Saez DNP [address] [place] [address] [address] [place] [phone] 08/08/2025 12:00 PM CDT Office Visit [facility] Heart [facility] Vascular At [address] [place] [address] Dominic Young MD [address] [place] [address] [address] [place] [address] Health Maintenance Due Date Last [...] years Discontinued Medical Devices Implanted Type Area Torpedo Man Device Identifier Shelf Expiration Date Model / Serial / Lot Sealant Duraseal 5ml - [id number] Implanted:Qty: 1 on 01/02/2021 by Jarvis Martell MD at [facility] Biological Spine Lumbar [employer] LULA 02/14/2022-2049 / / [id number] Eit T/Plif, H 13mm, 4' , 12/08 Implanted:Qty: 1 on 01/02/2021 by Jarvis Martell MD at [facility] Cage Spine Lumbar J&J- DEPU[employer] SP[employer] INC 08/16/2024 [id number] / / [id number] Description:All Depuy spinal hardware was processed on requisition, 929499. Hemostatic Surgiflo 8ml W/Thrombin 2994 - [id number] Implanted:Qty: 1 on 01/02/2021 by Jarvis Martell MD at [facility] Hemostatic Spine Lumbar J&J- ETHICON INC 11/16/2021 2994 / / [id number] Hemostat Gaby Surg Mph Pwd 3gm [id number] - [id number] Implanted:Qty: 1 on 12/14/2021 by Aki Mccray MD at [facility] Hemostatic Left: Chest CR BARD- DAVOL INC 05/14/2026 [id number] / / [id number] Hemostat Gaby Ah Powder 3gm [id number] - [id number] Implanted:Qty: 1 on 03/11/2025 by Chivo Moreland MD at [facility] Hemostatic Left: Chest BARD DAVOL [id number] 09/13/2029 [id number] / / [id number] Lead Pcmkr Tendril St Optm 2087tc-52 - [id number] Implanted:Qty: 1 on 12/14/2021 by Aki Mccray MD at [facility] Lead N/A: Heart [facility] 11/16/20242087TC-52 / [id number] / Lead Pcmkr Tendril St Optm -58 - [id number] Implanted:Qty: 1 on 12/14/2021 by Aki Mccray MD at [facility] Lead N/A: Heart [facility] 07/17/2024 2088TC/58 / [id number] / Lead Quartet Lt Quad 86cm 1458q-86 - [id number] Implanted:Qty: 1 on 03/11/2025 by Chivo Moreland MD at [facility] Lead N/A: Heart [facility] [id number] 11/16/2027 1458Q/86 / [id number] / Rene Xpdm Crv W/Line 95mm - Ssterilized 12/20/2020 Implanted:Qty: 1 on 01/02/2021 by Jarvis Martell MD at [facility] Rene Spine Lumbar J&J- DEPU[employer] SPINE INC 5 / STERILIZED 12/20/2020 / LOAD 110 Rene Xpdm Crv W/Line 85mm - Ssterilized 12/20/2020 Implanted:Qty: 1 on 01/02/2021 by Jarvis Martell MD at [facility] Rene Spine Lumbar J&J- DEPU[employer] SPINE INC 5 / STERILIZED 12/20/2020 / LOAD 110 Log [id number] - Depuy Expedium 5.5 Spine Tray - 1 - Screw Exp Poly 6x40mm Implanted:Qty: 2 on 05/06/2011 at [facility] Screw J&J- DEPUY SPINE INC 0 / / Setscrew Inner - Ssterilized 12/20/2020 Implanted:Qty: 6 on 01/02/2021 by Jarvis Martell MD at [facility] Screw Spine Lumbar J&J- DEPU[employer] INC 0 / STERILIZED 12/20/2020 / LOAD 110 Screw Exp Poly 7x45mm - Ssterilized 12/20/2020 Implanted:Qty: 4 on 01/02/2021 by Jarvis Martell MD at [facility] Screw Spine Lumbar J&J- DEPU[employer] INC 5 / STERILIZED 12/20/2020 / LOAD 110 Synergy- 020 Implanted:11/17 by Dominic Young MD (Quantity not on file) Stent 12/08/2020 / / [id number] Description:placed in the RC A Stent Synergy Xd 5.0x12mm Evrlms Elut [id number] - [id number] Implanted:Qty: 1 on 12/13/2021 at [facility] Stent N/A: Coronary [employer] [employer] LULA 12/18/2022 [id number] / / [id number] Putty Dbx Dbm 5c 80035 - [id number] Implanted:Qty: 1 on 01/02/2021 by Jarvis Martell MD at [facility] Tissue Spine Lumbar MUSCULOSKELETAL TRANSPLANT FOU 09/04/2021 [id number] / [id number] / Healos Implanted:Qty: 1 on 05/06/2011 at [facility] 05/17/2011 [id number] / / [id number] Description:depuy spine [place] Cage Implanted:Qty: 1 on 05/06/2011 at [facility] Description:concord bullet c age, load#24 05-01-2011 Durata 65 Cm Implanted:Qty: 1 on 03/11/2025 by Chivo Moreland MD at [facility] N/A: Heart 01/14/2027 TITUS-712 0 / [id number] / Jackson Hf Defibrillator Implanted:Qty: 1 on 03/11/2025 by Chivo Moreland MD at [facility] Left: Chest 04/16/2026 TITUS-CDH [id number] / [id number] / Description:per Titus Rep - NOT MRI safe. Patient has an abadoned lead from another device -cole 05/04/25 Explanted Type Area Torpedo Man Device Identifier Shelf Expiration Date Model / Serial / Lot Pacemaker Assurity-2 Mri [id number] - [id number] Implanted:Qty : 1 on 12/14/2021 by Aki Mccray MD at [facility] Pacemaker Left: Chest [facility] 05/16/2023 [id number] / [id number] / [id number] Description:Assurity MRI pacemaker and Tendril MRI and Tendril STS pacing leads allow full body, 1.5T and 3T MRI scans.* When the Assurity MRI pacemaker is combined with Tendril STS or Tendril MRI pacing leads there is no wait time between implant and MRI scan readiness.-cole 12/20/21 EXPLANTED -see new implant tab -NOW HAS ABANDONED LEAD - NOT MRI SAFE -cole 05/04/25 Log [id number] - Depuy Expedium 5.5 Spine Tray - 1 - Rene Xpdm 5.5 Ti Prebnt 45mm [id number] Implanted:Qty : 1 on 05/06/2011 at [facility] Explanted:Qty : 1 on 01/02/2021 by Jarvis Martell MD at [facility] Rene J&J- DEPUY SPINE INC [id number] 45 / / Log [id number] - Depuy Expedium 5.5 Spine Tray - 1 - Screw Set Inner [id number] Implanted:Qty : 2 on 05/06/2011 at [facility] Explanted:Qty : 2 on 01/02/2021 by Jarvis Martell MD at [facility] Screw J&J- MED PROD 1797-02-0 00-OLD [...] POC GLUCOSE Routine 05/13/2025 1:55 PM CDT QUILT MAKER EVALUATE AND TREAT Pending Discharge 05/13/2025 9:34 [...] POC GLUCOSE Routine 05/04/2025 4:22 AM CDT WI PROGRAM EVAL, IMPLANT DEVICE CARDVERT/DEFIB,MULTI- LEAD W/IN GLOBAL Routine 04/18/2025 3:01 PM CDT NICM (nonischemic cardiomyopathy) (CMS/HCC) Encounter for implantable defibrillator reprogramming or check WI PRGRMG EVAL IMPLANTABLE IN PERSON MULTI LEAD [...] EKG 12-LEAD Stat 03/17/2025 10:25 AM CDT WI PRGRMG EVAL IMPLANTABLE IN PERSON MULTI LEAD [...] WITH DIFFERENTIAL Stat 03/09/2025 4:18 PM CDT WI ECG ROUTINE ECG W/LEAST 12 LDS W/I&R Routine 03/09/2025 3:54 PM CDT Atrial flutter with rapid ventricular response (CMS/HCC) EKG 12-LEAD Stat 03/09/2025 3:54 PM CDT WI PROGRAM EVAL IMPLANTABLE IN PERSN DUAL LD PACER Routine 03/09/2025 3:39 PM CDT Tachy-michael syndrome (CMS/HCC) Pacemaker CRITICAL CARE Routine 03/09/2025 3:33 PM CDT LIPID PANEL Routine 05/21/2022 2:46 PM CDT Benign hypertension Mixed hyperlipidemia POC OCCULT BLOOD 1 CARD Routine 01/21/2021 2:16 PM FILM MASKER from Last 3 Months or Most Recently [...] Comment: FASTING:NO FASTING: NO Test Performed at: [facility] [address] [facility] [place] [address] Humberto Byers MD Blood 06/01/2025 10:0 7 AM CDT 06/01/2025 10:07 AM CDT us Cuauhtemoc Saez DNP CHEMISTRY ORDERABLES Fi nal Result [facility] [phone] [facility] [address] [place] [address] * (ABNORMAL) POC GLUCOSE (05/18/2025 12:29 PM CDT) Only the most recent of81 resultswithin the time period is included. GLUCOSE POC 237(H) 74 - 99 mg/dL 05/18/2025 12:29 PM CDT [facility] SPECIMEN SOURCE, GLUCOSE POC Whole Blood 05/18/2025 12:29 PM CDT [facility] Blood, whole 05/18/2025 12:2 9 PM CDT 05/18/2025 12:40 PM CDT Sarahi Allen MD POINT OF CARE TESTING Final Resu lt [facility]# [id number] [address] [facility] [place] [address] * TELEMETRY REPORT (05/17/2025 1:24 PM CDT) Only the most recent of6 resultswithin the time period is included. Provider Scanning ECG ORDERABLES Final Result * (ABNORMAL) CBC WITH DIFFERENTIAL (05/16/2025 7:01 AM CDT) Only the most recent of19 resultswithin the time period is included. Pathologist [facility] WBC 5.2 4.0 - 9.8 K/uL 05/16/2025 7:36 AM CDT [facility] RBC 4.78 4.50 - 5.40 M/uL 05/16/2025 7:36 AM CDT [facility] HEMOGLOBIN 14.5 13.6 - 16.5 g/dL 05/16/2025 7:36 AM CDT [facility] HEMATOCRIT 44.7 40.0 - 48.0 % 05/16/2025 7:36 AM CDT [facility] MCV 93.5 82.0 - 99.0 fL 05/16/2025 7:36 AM CDT [facility] - [facility] MCH 30.3 27.2 - 32.6 pg 05/16/2025 7:36 AM CDT [facility] - [facility] MCHC 32.4 31.5 - 35.5 g/dL 05/16/2025 7:36 AM CDT [facility] - [facility] RDW 16.4(H) 11.5 - 14.5 % 05/16/2025 7:36 AM CDT [facility] - [facility] RDW-STDEV 56.5(H) 37.1 - 48.7 fL 05/16/2025 7:36 AM CDT [facility] - [facility] PLATELETS 174 140 - 350 K/uL 05/16/2025 7:36 AM CDT [facility] - [facility] MPV 10.7 9.3 - 12.4 fL 05/16/2025 7:36 AM CDT [facility] - [facility] NEUTROPHILS 62 % 05/16/2025 7:36 AM CDT [facility] - [facility] LYMPHOCYTES 17 % 05/16/2025 7:36 AM CDT [facility] - . [facility] MONOCYTES 16 % 05/16/2025 7:36 AM CDT [facility] - . [facility] EOSINOPHILS 4 % 05/16/2025 7:36 AM CDT [facility] - . [facility] BASOPHILS 1 % 05/16/2025 7:36 AM CDT [facility] - . [facility] IMMATURE GRANULOCYTES 0 % 05/16/2025 7:36 AM CDT [facility] - . [facility] NEUTROPHIL ABSOLUTE 3.21 1.90 - 7.00 K/uL 05/16/2025 7:36 AM CDT [facility] - . [facility] LYMPHOCYTE ABSOLUTE 0.86 0.70 - 4.50 K/uL 05/16/2025 7:36 AM CDT [facility] - . [facility] MONOCYTE ABSOLUTE 0.82 0.10 - 1.30 K/uL 05/16/2025 7:36 AM CDT [facility] - . [facility] EOSINOPHIL ABSOLUTE 0.22 0.00 - 0.70 K/uL 05/16/2025 7:36 AM CDT [facility] BASOPHILS ABSOLUTE 0.05 0.00 - 0.20 K/uL 05/16/2025 7:36 AM CDT [facility] IMMATURE GRANULOCYTES ABSOLUTE 0.01 0.00 - 0.03 K/uL 05/16/2025 7:36 AM CDT [facility] Blood Venipuncture / Unknown 05/16/2025 7:01 AM CDT 05/16/2025 7:17 AM CDT Natacha Ellis DAILY RELEASE AND DUPE PRINTER HEMATOLOGY ORDERABLES Final Result [facility]# [id number] [address] [place] [address] * MAGNESIUM LEVEL (05/16/2025 7:01 AM CDT) Only the most recent of8 resultswithin the time period is included. [facility] MAGNESIUM 2.0 1.6 - 2.4 mg/dL 05/16/2025 8:01 AM CDT [facility] Blood Venipuncture / Unknown 05/16/2025 7:01 AM CDT 05/16/2025 7:17 AM CDT Adrienne Malave SUPERVISOR MAINTENANCE CHEMISTRY ORDERABLES Maryanne l Result Performing Organization Address City/[facility]/ZIP Co de Phone Number [facility]# [id number] [address] [place] [address] * SYPHILIS SEROLOGY W/REFLEX (05/12/2025 8:33 AM CDT) [facility] T PALLIDUM ANTIBODIES NEGATIVE NEGATIVE 05/14/2025 12:03 PM CDT [facility] Comment: No antibodies to T. pallidum (the [...] Performing Organization Information: Site ID: CB Name: [facility] Address: [address] [place] [address] Director: Dominic Wilcox us Adrienne Malave SUPERVISOR MAINTENANCE CHEMISTRY ORDERABLES Maryanne l Result [facility] [phone] * ECHOCARDIOGRAM W/ CONTRAST AGENT (05/12/2025 7:56 AM CDT) EJECTION FRACTION 35 INTERFACE SYSTEM 05/12/2025 6:52 AM CDT Narrative INTERFACE SYSTEM - 05/12/2025 8:[place] [address] [email or web address] Patient: Kameron Man Study ID: ECHOCARDIOGRAM W Gender: M : 1945 Age: 79 Race: CAU Height 180.3cm Study Date: 05/12/2025 Weight: 119.8kg Access. #: [id number] BP: *Referring Physician:* Adrienne Malave *Ordering Physician:* Adrienne Malave government employee: Nurse: Indications: Cardiomyopathy. STUDY CONCLUSIONS: SUMMARY: - [...] Hg --------- LVOT/AV, VTI ratio 0.57 --------- ARDY, VTI 2.3 cm^2 --------- ADRY/bsa, VTI 0.99 [...] AM. Prepared and Electronically Authenticated Christina Ott [id number] Procedure Note Christina Ott MD - 05/12/[address] [address] [email or web address] [email or web address] Echocardiogram Patient: Kameron Man Study ID: ECHOCARDIOGRAM W Gender: M : 1945 Age: 79 Race: [facility] Height 180.3cm Study Date: 05/12/2025 Weight: 119.8kg Access. #: [id number] BP: *Referring Physician:* Adrienne Malave *Ordering Physician:* Adrienne Malave government employee: Nurse: Indications: Cardiomyopathy. STUDY CONCLUSIONS: SUMMARY: - [...] AM. Prepared and Electronically Authenticated Christina Ott [id number] Adrienne Malave NP US ORDERABLES Final Res ult Performing Organization Address City/[facility] Co de Phone Number INTERFACE SYSTEM Refer to clinic/hospital department * BLOOD CULTURE (05/11/2025 12:02 PM CDT) Only the most recent of2 resultswithin the time period is included. Pathologist [facility] BLOOD CULTURE No growth 05/16/2025 2:40 PM CDT [facility] Blood (Peripheral) Venipuncture / Unknown 05/11/2025 12:02 PM CDT 05/11/2025 12:25 PM CDT Narrative [facility] - 05/16/2025 2:40 PM CDT Specimen processed with suboptimal blood volume collected. Adrienne Malave NP MICROBIOLOGY - GENERAL OR DERABLES Final Result Performing Organization Address [facility] de Phone Number [facility] CLIA# [id number] [address] [place] [address] * HIV DETECTION W/REFLX CONFIRMATION (05/11/2025 12:00 PM CDT) Pathologist [facility] HIV-1 AND 2 ABS AND HIV-1 AG Non-reacti ve Non-reacti ve 05/11/2025 1:29 PM CDT [facility] Blood Venipuncture / Unknown 05/11/2025 12:00 PM CDT 05/11/2025 12:24 PM CDT Adrienne Malave NP CHEMISTRY ORDERABLES Maryanne l Result Performing Organization Address [facility]/ZIP Co de Phone Number [facility] CLIA# [id number] [address] [facility] [address] * EKG 12-LEAD (05/10/2025 4:56 PM CDT) Only the most recent of5 resultswithin the time period is included. 05/10/2025 4:56 PM CDT Narrative INTERFACE SYSTEM - 05/11/2025 9:10 AM CDT [id number] [place] [address] Test Date: 2025-05-10 Pat Name: 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 Department: 41 Room: [facility] 1 Gender: Male Customer Success Advocate: ms : 1945 Requested By: MINAL Corcoran Order Number: [id number] Reading : David Tolbert Measurements Intervals [place] Rate: 80 P: 0 WI: 0 QRS: 160 QRSD: 174 T: 19 QT: 477 QTc: 551 Interpretive Statements Afib/flutter and ventricular-paced rhythm Electronically Signed On 05-11-2025 9:10:08 CDT by David Tolbert us Adrienne Malave SUPERVISOR MAINTENANCE ECG ORDERABLES Final Res ult INTERFACE SYSTEM [...] 3. Coronary artery calcification. DICTATION LOCATION: Location [facility] Kelly Maurer us Adrienne Malave SUPERVISOR MAINTENANCE CT ORDERABLES Final Res ult * CT HEAD CERVICAL SPINE WO CONTRAST (05/10/2025 1:44 PM CDT) Only the most recent of2 resultswithin the time period is included. Anatomical Region Laterality Modality Head Computed Tomogra phy 05/10/2025 1:36 PM CDT Impressions 05/10/2025 2:01 PM CDT IMPRESSION: 1. No acute abnormality of the head or cervical spine. [facility] 05/10/2025 2:[address] HEAD WITHOUT [...] or cervical spine. DICTATION LOCATION: Location - [facility] us Adrienne Malave SUPERVISOR MAINTENANCE CT ORDERABLES Final Res ult * C-REACTIVE PROTEIN (05/10/2025 7:08 AM CDT) Only the most recent of2 resultswithin the time period is included. CRP <3.0 <5.0 mg/L 05/10/2025 8:29 AM CDT [facility] Blood Venipuncture / Unknown 05/10/2025 7:08 AM CDT 05/10/2025 7:38 AM CDT Adreinne Malave SUPERVISOR MAINTENANCE CHEMISTRY ORDERABLES Maryanne l Result Performing Organization Address City/[facility]/ZIP Co de Phone Number [facility] CLIA# [id number] [address] [place] [address] * (ABNORMAL) BRAIN NATRIURETIC PEPTIDE, BNP OR PROBNP (05/10/2025 7:08 AM CDT) Only the most recent of3 resultswithin the time period is included. PROBNP, N TERMINAL 2,277(H) <449 pg/mL 05/10/2025 11:20 AM CDT [facility] [employer] Comment: INTERPRETIVE COMMENT based on diagnosis: [...] CDT 05/10/2025 7:38 AM CDT Adrienne Malave SUPERVISOR MAINTENANCE CHEMISTRY ORDERABLES Maryanne l Result [facility] CLIA# [id number] [address] [place] [address] * CT ABDOMEN PELVIS W CONTRAST (05/09/2025 3:27 PM CDT) Anatomical Region Laterality Modality Abdomen Computed Tomogra phy 05/09/2025 3:23 PM CDT Impressions 05/09/2025 5:05 PM CDT IMPRESSION: Lumbar spondylosis. Postop lumbar fusion. Renal cysts. Status post prior cholecystectomy. Pacemaker. Patient was scanned with iterative reconstruction to minimize radiation dose. DICTATION LOCATION: Location 1 [facility] 05/09/2025 5:[address] SCAN [...] to minimize radiation dose. DICTATION LOCATION: Location [address] [place] [address] us Ivette Natarajan MD CT ORDERABLES Final [...] 24(H) <=15 ng/L 05/08/2025 4:21 PM CDT [facility] DELTA 6HR TROPONIN T 0 See Interp. 05/08/2025 4:21 PM CDT [facility] Blood Venipuncture / Unknown 05/08/2025 2:54 PM CDT 05/08/2025 3:41 PM CDT Narrative [facility] - 05/08/2025 4:21 PM CDT Troponin elevated. Delta indeterminate. Delay in collection of timed specimen beyond recommended collection interval. Results must be interpreted in clinical context. us Natacha Ellis APRN CHEMISTRY ORDERABLES Final Result [facility] [employer]# [id number] [address] [facility] [place] [address] * (ABNORMAL) TROPONIN 2 HR, 5TH GEN (05/08/2025 10:59 AM CDT) Only the most recent of3 resultswithin the time period is included. TROPONIN T, 2 HR 5TH GEN 25(H) <=15 ng/L 05/08/2025 12:14 PM CDT [facility] DELTA 2HR TROPONIN T 1 See Interp. 05/08/2025 12:14 PM CDT [facility] Blood Venipuncture / Unknown 05/08/2025 10:59 AM CDT 05/08/2025 11:40 AM CDT Narrative [facility] - 05/08/2025 12:14 PM CDT Troponin elevated. Delta not changing. Delay in collection of timed specimen beyond recommended collection interval. Results must be interpreted in clinical context. Natacha Ellis APRN CHEMISTRY ORDERABLES Final Result Performing Organization Address [facility] Co de Phone Number [facility] CLIA# [id number] [address] [place] [address] * (ABNORMAL) TROPONIN BASELINE, 5TH GEN (05/08/2025 8:55 AM CDT) Only the most recent of3 resultswithin the time period is included. TROPONIN T, BASELINE 5TH GEN 24(H) <=15 ng/L 05/08/2025 10:21 AM CDT [facility] Blood Venipuncture / Unknown 05/08/2025 8:55 AM CDT 05/08/2025 9:29 AM CDT Narrative [facility] - 05/08/2025 10:21 AM CDT Troponin elevated. Natacha Ellis APRN CHEMISTRY ORDERABLES Final Result Performing Organization Address [facility] Co de Phone Number [facility] CLIA# [id number] [address] [place] [address] * (ABNORMAL) LIPASE (05/08/2025 8:55 AM CDT) LIPASE 12(L) 13 - 60 U/L 05/08/2025 10:21 AM CDT [facility] Blood Venipuncture / Unknown 05/08/2025 8:55 AM CDT 05/08/2025 9:29 AM CDT us Ivette Natarajan MD CHEMISTRY ORDERABLES Final Result [employer] [facility] - [facility]# [id number] [address] [place] [address] * (ABNORMAL) URINALYSIS WITH REFLEX MICROSCOPIC (05/08/2025 7:50 AM CDT) Only the most recent of2 resultswithin the time period is included. COLOR UA Yellow Pale to Dark Yellow 05/08/2025 8:23 AM CDT [facility] - [facility] CLARITY UA Clear Clear 05/08/2025 8:23 AM T [facility] - [facility] SPECIFIC GRAVITY UA 1.014 1.003 - 1.035 05/08/2025 8:23 AM T [facility] - [facility] PH UA 6.0 5.0 - 8.0 05/08/2025 8:23 AM T [facility] - [facility] LEUKOCYTE ESTERASE UA Negative Negative 05/08/2025 8:23 AM T [facility] - [facility] NITRITE UA Negative Negative 05/08/2025 8:23 AM T [facility] - [facility] PROTEIN UA Negative Negative 05/08/2025 8:23 AM T [facility] - [facility] GLUCOSE UA 3+(A) Negative 05/08/2025 8:23 AM [facility] - [facility] KETONES UA 1+(A) Negative 05/08/2025 8:23 AM T [facility] - [facility] UROBILINOGEN UA Normal <2.0 mg/dL 8:23 AM T [facility] - [facility] BILIRUBIN UA Negative Negative 05/08/2025 8:23 AM T [facility] - [facility] BLOOD UA Negative Negative 05/08/2025 8:23 AM T [facility] - . [facility] WBC UA 0-2 0 - 2 /hpf 05/08/2025 8:23 AM T [facility] - . [facility] RBC UA 0-2 0 - 2 /hpf 05/08/2025 8:23 AM CDT [facility] - [facility] BACTERIA UA Negative Negative /hpf 05/08/2025 8:23 AM CDT [employer] [facility] LABORATORY SERVICES - . [facility] HYALINE CAST 0-2 None Seen, 0-2 /lpf 05/08/2025 8:23 AM CDT [employer] LABORATORY SERVICES - . [facility] GRANULAR CAST 0-2(A) None Seen /lpf 05/08/2025 8:23 AM CDT [employer] [facility] - [facility] Urine URINE SPECIMEN OBTAINED BY CLEAN CATCH PROCEDURE / Unknown Collection / Unknown 05/08/2025 7:50 AM CDT 05/08/2025 7:53 AM CDT Minal Villegas MD URINE ORDERABLES Final Result [facility] - [facility]# [id number] [address] [place] [address] * (ABNORMAL) DRUG SCREEN, URINE (05/08/2025 7:49 AM CDT) AMPHETAMINE QUAL, URINE Negative Negative 05/08/2025 8:25 AM CDT [employer] [facility] - [facility] BARBITURATE QUAL, URINE Negative Negative 05/08/2025 8:25 AM CDT [facility] - [facility] BENZODIAZEPINE QUAL, URINE Presumptive Positive(A) Negative 05/08/2025 8:25 AM CDT [employer] [facility] - [facility] COCAINE QUAL URINE Negative Negative 05/08/2025 8:25 AM CDT [facility] - [facility] OPIATE QUAL, URINE Negative Negative 05/08/2025 8:25 AM CDT [employer] [facility] - [facility] CANNABINOIDS QUAL, URINE Negative Negative 05/08/2025 8:25 AM CDT [facility] - [facility] PCP QUAL, URINE Negative Negative 8:25 AM CDT [facility] - [facility] OXYCODONE QUAL, URINE Negative Negative 05/08/2025 8:25 AM CDT [facility] METHADONE QUAL, URINE Negative Negative 05/08/2025 8:25 AM CDT [facility] FENTANYL QUAL, URINE Negative Negative 05/08/2025 8:25 AM CDT [facility] CREATININE, URINE 87.5 40.0 - 278.0 mg/dL 05/08/2025 8:25 AM CDT [facility] Comment:Reference Range vari es with fluid intake and diet. Urine URINE SPECIMEN OBTAINED BY CLEAN CATCH PROCEDURE / Unknown Collection / Unknown 05/08/2025 7:49 AM CDT 05/08/2025 7:54 AM CDT Narrative [facility] - 05/08/2025 8:25 AM [...] Brooke MD URINE ORDERABLES Fin al Result [facility] [id number] [address] [facility] [place] [address] * XR ABDOMEN 1 VW (05/07/2025 11:40 PM CDT) Anatomical Region Laterality Modality Abdomen Computed Radiogr aphy 05/07/2025 11:4 0 PM CDT Impressions 05/08/2025 6:09 AM CDT IMPRESSION: 1. Nonspecific bowel gas pattern with no evidence of bowel obstruction. DICTATION LOCATION: Location 2 - [facility] Narrative 05/08/2025 6:09 AM CDT XR ABDOMEN 1 VW DATE: 05/07/2025 11:40 PM HISTORY: Pain, Comment: persistent nausea. Acute metabolic encephalopathy; Type 2 diabetes mellitus with diabetic polyneuropathy, with long-term current use of insulin ([facility]/HCC); Type 2 diabetes mellitus with diabetic polyneuropathy, [...] no evidence of bowel obstruction. DICTATION LOCATION: [address] Natacha Ellis APRN DIAGNOSTIC IMAGING ORDERABL ES Final Result * RESPIRATORY PATHOGEN PCR PANEL (05/07/2025 4:48 PM CDT) Respiratory Pathogen PCR Panel NOT DETECTED No respiratory pathogen nucleic acids detected. 05/07/2025 6:13 PM CDT [facility] SERVICES [facility] COVID-19 PCR NOT DETECTED Not Detected 05/07/2025 6:13 PM CDT [facility] Upper Respiratory ENTIRE NASOPHARYNX / Unknown Collection / Unknown 05/07/2025 4:48 PM CDT 05/07/2025 4:56 PM CDT Narrative [facility] - 05/07/2025 6:13 PM CDT The [...] MICROBIOLOGY - GENERAL ORDERAB LES Final Result [facility]# [id number] [address] [place] [address] * (ABNORMAL) COMPREHENSIVE METABOLIC PANEL (05/07/2025 2:11 PM CDT) Only the most recent of4 resultswithin the time period is included. SODIUM 140 136 - 145 mmol/L 05/07/2025 2:50 PM CDT [facility] POTASSIUM 4.1 3.5 - 5.0 mmol/L 05/07/2025 2:50 PM CDT [facility] CHLORIDE 103 98 - 107 mmol/L 05/07/2025 2:50 PM CDT [facility] CO2 27 22 - 29 mmol/L 05/07/2025 2:50 PM CDT [facility]. [facility] CALCIUM 8.7 8.6 - 10.2 mg/dL 05/07/2025 2:50 PM CDT [facility] - . CRISTIAN BUN 12 8 - 23 mg/dL 05/07/2025 2:50 PM CDT [facility]. [facility] CREATININE 1.01 0.67 - 1.17 mg/dL 05/07/2025 2:50 PM CDT [facility] Comment:The GFR result is no t clinically significant on patients <18 or >70 years of age. GLUCOSE 224(H) 74 - 99 mg/dL 05/07/2025 2:50 PM T [facility] TOTAL PROTEIN 5.7(L) 6.7 - 8.6 g/dL 05/07/2025 2:50 PM T [facility] ALBUMIN 3.7 3.5 - 5.2 g/dL 05/07/2025 2:50 PM T [facility] BILIRUBIN TOTAL 0.6 0.0 - 1.1 mg/dL 05/07/2025 2:50 PM T [facility] ALKALINE PHOSPHATASE 79 40 - 129 U/L 05/07/2025 2:50 PM T [facility] AST 27 <41 U/L 05/07/2025 2:50 PM [facility] ALT 19 <42 U/L 05/07/2025 2:50 PM T [facility] GFR >60 mL/min/1.7 3 sq meter 05/07/2025 2:50 PM T [facility] Comment:eGFR calculated with 2020 CKD-EPI equation. Vegetarian diet, extremely high or low muscle mass, and may affect results. Cystatin C with Glomerular Filtration Rate is a suitable alternative for these patients. ANION GAP 10 8 - 16 mmol/L 05/07/2025 2:50 PM T [facility] Blood Venipuncture / Unknown 05/07/2025 2:11 PM CDT 05/07/2025 2:16 PM CDT [facility] LABORATORY SERVICES [facility] - 05/07/2025 2:50 PM CDT Samples containing indocyanine green cause interferences on Total and/or Direct Bilirubin and must not be measured. us Minal Villegas MD CHEMISTRY ORDERABLES Final Res ult [facility] [employer] [facility] CLIA# [id number] [address] [facility] [address] [address] * CT HEAD WO CONTRAST (05/05/2025 11:11 AM CDT) Anatomical Region Laterality Modality Head Computed Tomogra phy 05/05/2025 11:0 6 AM CDT Impressions 05/05/2025 12:17 PM CDT IMPRESSION: 1. No acute intracranial process. DICTATION LOCATION: Location 1 - [facility] 05/05/2025 12:17 PM CDT EXAMINATION: CT HEAD [...] intracranial process. DICTATION LOCATION: Location 1 - [facility] Randa Sosa MD CT ORDERABLES Final Resu lt * GI PATHOGEN PCR PANEL (05/04/2025 7:00 PM CDT) GI Pathogen PCR panel NOT DETECTED No nucleic acids detected. 05/04/2025 8:33 PM CDT [facility] Stool STOOL SPECIMEN / Unknown 05/04/2025 7:00 PM CDT 05/04/2025 7:00 PM CDT Narrative [facility] - 05/04/2025 8:33 PM [...] MICROBIOLOGY - GENERAL OR DERABLES Final Result [facility]# [id number] [address] [facility] [place] [address] * VITAMIN B12 AND FOLATE (05/04/2025 4:11 PM CDT) Only the most recent of2 resultswithin the time period is included. VITAMIN B12 534 232 - 1,245 pg/mL 05/04/2025 5:19 PM CDT [facility] Comment:It has been reported that between 5 to 10% of patients with values between 200 and 400 pg/mL may experience neuropsychiatric and hematologic abnormalities due to occult B12 deficiency. Less than 1% of patients with values above 400 pg/mL will have symptoms. FOLATE, SERUM >20.0 >4.5 ng/mL 05/04/2025 5:19 PM CDT [facility] Blood Venipuncture / Unknown 05/04/2025 4:11 PM CDT 05/04/2025 4:24 PM CDT Result [facility] Jessica Aragon PA-C CHEMISTRY ORDERABLES Maryanne l Result [facility]# [id number] [address] [place] [address] * (ABNORMAL) KETONES/BETA HYDROXYBUTYRATE (05/04/2025 9:42 AM CDT) BETA HYDROXYBUTYRATE 2.2(H) <0.4 mmol/L 05/04/2025 11:19 AM CDT [facility] Blood Venipuncture / Unknown 05/04/2025 9:42 AM CDT 05/04/2025 9:45 AM CDT Result [facility] Randa Sosa MD CHEMISTRY ORDERABLES Final Result [facility]# [id number] [address] [place] [address] * TSH (05/04/2025 9:42 AM CDT) TSH 1.82 0.27 - 4.20 uIU/mL 05/04/2025 10:30 AM CDT [facility] [employer] Blood Venipuncture / Unknown 05/04/2025 9:42 AM CDT 05/04/2025 9:45 AM CDT Result [facility] Jessica Aragon PA-C CHEMISTRY ORDERABLES Maryanne l Result [facility] [id number] [address] [place] [address] * (ABNORMAL) BLOOD GAS VENOUS (05/04/2025 9:42 AM CDT) PH, VENOUS 7.36 7.32 - 7.43 05/04/2025 9:50 AM CDT [facility] LABORATORY SERVICES [facility] PCO2 VENOUS 42 38 - 50 mm Hg 05/04/2025 9:50 AM CDT [facility] PO2 VENOUS 96(H) 25 - 40 mm Hg 05/04/2025 9:50 AM CDT [facility] HCO3 VENOUS 23 22 - 29 mmol/L 9:50 AM CDT [facility] BASE EXCESS VENOUS -1.7 Reference Range Not Established mmol/L 05/04/2025 9:50 AM T [facility] HEMOGLOBIN VENOUS 13.7 No Ref Range Estab g/dL 05/04/2025 9:50 AM T [facility] O2 SAT EST VENOUS 98(H) 40 - 70 % 05/04/2025 9:50 AM T [facility] Blood, venous 05/04/2025 9:4 2 AM CDT 05/04/2025 9:45 AM CDT Akosua Bourgeois MD ABG ORDERABLES Final Resu lt [facility]# [id number] [address] [place] [address] * [place] PROGRAM EVAL, IMPLANT DEVICE CARDVERT/DEFIB,MULTI-LEAD W/IN GLOBAL [...] - 16.5 g/dL 03/17/2025 5:06 PM CDT [facility] HEMATOCRIT 36.0(L) 40.0 - 48.0 % 03/17/2025 5:06 PM CDT [facility] Blood Venipuncture / Unknown 03/17/2025 4:23 PM CDT 03/17/2025 4:53 PM CDT Nova Marks NP HEMATOLOGY ORDERABLES Final Result [facility]ORY SERVICES [facility] CLIA# [id number] [address] [place] [address] * (ABNORMAL) IRON, TIBC, AND PERCENT SATURATION (03/17/2025 1:10 PM CDT) IRON 54(L) 59 - 158 ug/dL 03/17/2025 1:51 PM CDT [facility] [facility] LABORATORY SERVICES [facility] TIBC 325 250 - 450 ug/dL 03/17/2025 1:51 PM CDT [facility] IRON % SATURATION 17(L) 20 - 50 % 03/17/2025 1:51 PM CDT [facility] TRANSFERRIN 256 200 - 360 mg/dL 03/17/2025 1:51 PM CDT [facility] Blood Venipuncture / Unknown 03/17/2025 1:10 PM CDT 03/17/2025 1:10 PM CDT us Nova Marks NP CHEMISTRY ORDERABLES Final Result [facility]# [id number] [address] [place], [place] [address] * ECHO LIMITED WO DOPPLER (03/17/2025 12:10 PM CDT) EJECTION FRACTION EF: INTERFACE SYSTEM 03/17/2025 11:5 6 AM CDT Narrative INTERFACE SYSTEM - 03/17/2025 1:[address] [address] [email or web address] Echocardiogram (Report amended ) Patient: Kameron Man Study ID: ECHO LIMITED WO Gender: M : 1945 Age: 79 Race: CAU Height 180.3cm Study Date: 03/17/2025 Weight: 118.8kg Access. #: [id number] BP: *Referring Physician:* Adrienne Mullen *Ordering Physician:* Adrienne Mullen government employee: Nurse: Indications: Evaluate for pericardial effusion. Limited [...] Study time: 11:56 AM. Amended Stanislaw Lerner [id number] Procedure Note Stanislaw Lerner MD - 03/17/2025 [address] [place] [address] [email or web address] Echocardiogram (Report amended ) Patient: Kameron Man Study ID: ECHO LIMITED WO Gender: M : 1945 Age: 79 Race: CHANDA Height 180.3cm Study Date: 03/17/2025 Weight: 118.8kg Access. #: [id number] BP: *Referring Physician:* Adrienne Mullen *Ordering Physician:Adrienne Ford government employee: Nurse: Indications: Evaluate for pericardial effusion. Limited [...] Study time: 11:56 AM. Amended Stanislaw Lerner [id number] us Adrienne Mullen SUPERVISOR MAINTENANCE US ORDERABLES Edited Res ult - Final INTERFACE SYSTEM Refer to clinic/hospital department * POC LACTIC ACID (03/17/2025 10:56 AM CDT) LACTIC ACID POC 1.3 <=2.0 mmol/L 03/17/2025 10:56 AM CDT [facility] SPECIMEN SOURCE, GASES POC Blank 03/17/2025 10:56 AM CDT [facility] COMMENT, GASES POC Responsible Clinical Caregiver notified 03/17/2025 10:56 AM CDT [facility] Blood 03/17/2025 10:5 6 AM CDT 03/17/2025 10:58 AM CDT us Aravind Jones DO POINT OF CARE TESTING Final Resu lt [facility] [employer] CLIA# [id number] [facility] [place] [place] [address] * TYPE AND SCREEN (03/17/2025 10:50 AM CDT) Only the most recent of2 resultswithin the time period is included. ABO GROUP A 03/17/2025 12:00 PM CDT [facility] LABORATORY SERVICES -- [facility] RH (D) TYPE Positive 03/17/2025 12:00 PM CDT [facility] -- [facility] ANTIBODY SCREEN Negative 03/17/2025 12:00 PM CDT [facility] SERVICES -- [facility] Blood Venipuncture / Unknown 03/17/2025 10:50 AM CDT 03/17/2025 10:58 AM CDT us Aravind Jones DO BLOOD BANK ORDERABLES Edited Res ult - Final [facility] LABORATORY SERVICES -- [facility] CLIA# [id number] [address] [place] [address] * XR CHEST PA OR AP 1 [...] - 03/12/2025 12:14 PM CDT Rogelio Fierro, BACK PADDER 03/12/2025 12:16 PM OXYGEN WALK STUDY Oxygen [...] The patient ambulated 100 ft. Please call [phone] for any questions about this walk study. Jayda Nagel MD PFT ORDERABLES Final Result [facility] [address] [place] [address] * PACEMAKER UPGRADE TO ICD (03/11/2025 5:41 PM CDT) [facility] - 03/11/2025 6:16 PM CDT CONCLUSION: 1. Successful upgrade from a dual chamber pacemaker system to a multichamber (biventricular) ICD system as described with [facility] equipment. 2. Successful AV junction ablation as described RECOMMENDATIONS: GDMT for cardiomyopathy and CHF Chivo Moreland MD Brim Stretcher Clinical Cardiac Sales Training Representative Estimated Blood Loss There was minimal blood loss during procedure. Procedure Details OPERATIVE PROCEDURE: UPGRADE FROM DUAL CHAMBER PACEMAKER SYSTEM TO BIVENTRICULAR ICD SYSTEM AND AV JUNCTION ABLATION Date of procedure: 03/11/2025 Cardiac Sales Training Representative: Chivo Moreland MD Indication for procedure: Cardiomyopathy; [...] wire technique through the sheath, a 7 [employer] and a 9 Fr peel-away sheaths were [...] procedure well. Multi-chamber ICD generator: [facility] HF The right atrial lead was implanted [...] for cardiomyopathy and CHF Chivo Moreland MD Brim Stretcher Clinical Cardiac Sales Training Representative Adrienne Mullen SUPERVISOR MAINTENANCE CUP EP ORDERABLES Final Re sult Performing Organization Address [facility]/ZIP Co de Phone Number [facility] CLIA #[id number] [address], [facility] [address] [place] [address] * PROTIME-INR (03/11/2025 4:16 AM CDT) PROTIME 13.1 12.7 - 15.1 Seconds 03/11/2025 5:30 AM CDT [facility] INR 1.0 0.9 - 1.1 03/11/2025 5:30 AM CDT [facility] Blood Venipuncture / Unknown 03/11/2025 4:16 AM CDT 03/11/2025 5:04 AM CDT [facility] - 03/11/2025 5:30 AM CDT INR Therapeutic Range: Adult: 2.0 - 3.0 for pulmonary embolism or prophylaxis against venous thrombosis or systemic embolization. 2.0 - 3.0 for patients with tissue heart valves. 2.5 - 3.5 for patients with mechanical heart valves or post ID. Pediatric (12 years and under): 1.5 - 3.0 Although the target range in children is not well established, INR values of 1.5 - 3.0 are recommended for most patients. Higher values have been used in children with prosthetic cardiac valves and hereditary clotting disorders. (<3 days) therapeutic ranges have not been established. Adrienne Mullen SUPERVISOR MAINTENANCE HEMATOLOGY ORDERABLES Maryanne l Result Performing Organization Address City/[facility]/ZIP Co de Phone Number [facility] CLIA# [id number] [address] [place] [address] * (ABNORMAL) HEMOGLOBIN A1C (03/09/2025 4:18 PM CDT) HEMOGLOBIN A1C 9.4(H) <5.7 % 03/09/2025 10:32 PM CDT [facility] EST. AVG GLUCOSE, A1C 223 mg/dL 03/09/2025 10:32 PM CDT [facility] Blood Venipuncture / Unknown 03/09/2025 4:18 PM CDT 03/09/2025 4:29 PM CDT Narrative [facility] - 03/09/2025 10:32 PM CDT HGB A1C INTERPRETATION NORMAL: <5.7% PRE-DIABETES: 5.7 - 6.4% DIABETES: 6.5% OR GREATER Natacha Ellis DAILY RELEASE AND DUPE PRINTER CHEMISTRY ORDERABLES Final Result [facility] CLIA# [id number] [address] [place] [address] * [place] PROGRAM EVAL IMPLANTABLE IN PERSN DUAL LD PACER (03/09/2025 3:39 PM CDT) 03/09/2025 3:39 PM CDT Narrative INTERFACE SYSTEM - 03/09/2025 3:46 PM CDT [facility] Pacemaker interrogation: LW add on - RVR Appropriate dual chamber device function. Battery: 12.5 years Presenting: AFL/Director Emergency Department at 114bpm Underlying: AFL w/ IC at 90-120bpm Ap <1% Director Emergency Department 54% AF burden 56%, Vrates >110bpm ~25% No ventricular arrhythmias noted Device programmed VVIR 80 per LW. Pt reporting to ED following OV Per epic, pt takes metoprolol, plavix, amiodarone, eliquis Scheduled for remote in 3 months Procedure Note Provider, Historical - 03/09/2025 SJM Pacemaker interrogation: LW add on - RVR Appropriate dual chamber device function. Battery: 12.5 years Presenting: AFL/Director Emergency Department at 114bpm Underlying: AFL w/ IC at 90-120bpm Ap <1% Director Emergency Department 54% AF burden 56%, Vrates >110bpm ~25% No ventricular arrhythmias noted Device programmed VVIR 80 per LW. Pt reporting to ED following OV Per epic, pt takes metoprolol, plavix, amiodarone, eliquis Scheduled for remote in 3 months Result [facility] Tani Patel MD CARDIAC SERVICES [...] 2:46 PM CDT) CHOLESTEROL 153 <200 mg/dL [facility] HDL 48 > OR = 40 mg/dL [facility] TRIGLYCERIDE 266(H) <150 mg/dL [facility] Comment: If a non-fasting specimen was collected, consider repeat triglyceride testing on a fasting specimen if clinically indicated. Darshan et al. J. of Clin. Lipidol. 2015;9:129-169. LDL CALCULATED 70 mg/dL (calc) [facility] Comment: Reference range: <100 Desirable range <100 mg/dL for primary prevention; <70 mg/dL for patients with CHD or diabetic patients with > or = 2 CHD risk factors. LDL-C is now calculated using the Ariane calculation, which is a validated novel method providing better accuracy than the Friedewald equation in the estimation of LDL-C. Girma YING et al. GINA. 2013;310(19): 7851-3534 (http://education.[employer]/faq/BVF489) CHOL/HDL RATIO 3.2 <5.0 (calc) [facility] TOTAL NON-HDL CHOL(LDL+VLDL) 105 <130 mg/dL (calc) [facility] Comment: For patients with diabetes plus 1 major ASCVD risk factor, treating to a non-HDL-C goal of <100 mg/dL (LDL-C of <70 mg/dL) is considered a therapeutic option. Test Performed at: [place] [address] [address] [address] Humberto Byers Blood 05/21/2022 2:46 PM CDT 05/21/2022 2:46 PM CDT Dominic Young MD CHEMISTRY ORDERABLES Final Resul t [facility] [phone] [place] [address] [address] [phone] * POC OCCULT BLOOD 1 CARD (01/21/2021 2:16 PM FILM MASKER) OCCULT BLOOD 1 CARD POC Negative Negative 01/21/2021 2:16 PM FILM MASKER [facility] EARLY EDUCATION TEACHER NAME POC LANE JAZZMINE Hector 01/21/2021 2:16 PM FILM MASKER [facility] [employer] Stool STOOL SPECIMEN / Unknown 01/21/2021 2:16 PM FILM MASKER 01/22/2021 10:40 AM FILM MASKER Minal Villegas MD POINT OF CARE TESTING Final Re sult [facility] Organization Address City/State/ZIP Co de Phone Number [facility]# [id number] [address] [place] [address] from Last 3 Months or Most Recently Relevant to Health Maintenance Insurance MEDICARE PART A AND B BCBS SUPP RX [employer]ER[employer] Medicare Part D RX [employer] (INTERNAL) [facility] Plans RX EMDEON Commercial Advance Directives For more information, please contact: [phone] Documents on File Type Date Recorded Patient Corporate Strategy Associate Expl anation Advance Directive POA 02/07/2021 9:09 [...] 3:25 PM 03/11/2025 6:40 PM Care Teams Regional Commercial Sales Manager Relationship Specialty Start Date End Date Eric Pretty MD [address] [place] [address] PCP - General Internal Medicine 11/24/19
--- OUTSIDE RECORDS SUMMARY | 2025-06-06 13:31 | XMS_ITS | Encounter Summary ---
Author Organization [facility] Address [address] [place] [address] Care Team Providers Care Tool And Die Maker Apprentice Name Role Phone Jarvis Harding Primary Care Provider Jarvis Harding Primary Care Provider Jarvis Harding Primary Care Provider Jarvis Harding Primary Care Provider Jarvis Harding Primary Care Provider Jarvis Harding Primary Care Provider Kindra Fernandez MD Primary Care Provider Eric Pretty MD Primary Care Provider [phone] Kale MONTANA MD, John J. 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 Gender Identity Not on file Sexual [...] on filedocumented in this encounter Care Teams Tool And Die Maker Apprentice Relationship Specialty Start Date End Date Jarvis Harding [address] [place] [address] PCP - General 02/14/17 08/27/17 Jarvis Harding [address] [place] [address] PCP - General 07/13/14 02/13/17 Jarvis Harding [address] [place] [address] PCP - General 03/03/12 07/12/14 Jarvis Harding [address] [place] [address] PCP - General 02/18/12 03/02/12 Jarvis Harding [address] [place] [address] PCP - General 02/11/12 02/17/12 Jarvis Harding [address] [place] [address] PCP - General 07/24/11 02/10/12 Kindra Fernandez MD [address] [place] [address] PCP - General Family Practice 08/28/17 01/27/18 Eric Pretty MD [address] [place] [address] PCP - General Internal Medicine 01/28/18 Master Henley III, MD [address] [place] [address] Consulting Physician Rheumatology 01/28/18 01/26/24 Dominic Young MD [address] [place] [address] Consulting Physician Cardiology 01/04/20 Carlos Hernandez MD [address] [place] [address] Consulting Physician Rheumatology 01/27/24 documented as of this encounter
--- OUTSIDE RECORDS SUMMARY | 2025-06-06 13:31 | XMS_ITS | Encounter Summary ---
Author Organization [employer] [facility] Address 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 Gender Identity Not on file Sexual Orientation Not on file documented as of this encounter Plan of Treatment Upcoming Encounters Date Type Department Care Team (Late st Contact Info) Description 07/20/2025 8:00 AM CDT Procedure visit [facility] EP AT [address] [place] [address] 07/26/2025 2:00 PM CDT Office Visit [facility] HEART AND VASCULAR EP AT [address] [place] [address] Cuauhtemoc Saez DNP [address] [facility] [address] [place] [address] 08/08/2025 12:00 PM CDT Office Visit [facility] Heart [facility] V[facility] At [facility] [address] [address] [address] [place] [address] [facility] [address] [facility] [address] [place] [address] documented as of this encounter Visit Diagnoses Not on filedocumented in this encounter Care Teams Solar Photovoltaic Systems Engineer Relationship Specialty Start Date End Date Eric Pretty MD [address] [place] [address] PCP - General Internal Medicine 11/24/19 documented as of this encounter
--- OUTSIDE RECORDS SUMMARY | 2025-06-06 13:31 | XMS_ITS | Encounter Summary ---
Author Organization [facility] Address [address] [place] [address] Care Team Providers Care Heat Treat Technician Name Role Phone Eric Pretty MD Primary Care Provider + Reason for Visit * Reason Onset Date Comments Medication Refill 06/06/2025 Encounter Details Date Type Department Care Team (Late st Contact Info) Description 06/06/2025 Telephone [facility] EP AT [facility] [address] [place] [address] Cuauhtemoc Saez, [place] [address] [place] [address] Medication Refill Social History Tobacco [...] on file 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 Gender Identity Not on file Sexual [...] 5mg daily please Cuauhtemoc Saez DNP to Ca 06/04/25 10:45 AM Please D/c Metoprolol Me [...] Description 07/20/2025 8:00 AM CDT Procedure visit [facility] HEART AND VASCULAR EP AT [address] [place] [address] 07/26/2025 2:00 PM CDT Office Visit [facility] HEART AND [facility]ASCULAR EP AT [address] [place] [address] Cuauhtemoc Saez DNP [address] [place] [address] [address] [place] [address] 08/08/2025 12:00 PM CDT Office Visit [facility] At [address] [place] [address] Dominic Young MD [address] [place] [address] [address] [place] [address] documented as of this encounter Visit Diagnoses Not on filedocumented in this encounter Care Teams Heat Treat Technician Relationship Specialty Start Date End Date Eric Pretty MD [address] [place] [address] PCP - General Internal Medicine 11/24/19 documented as of this encounter
--- OUTSIDE RECORDS SUMMARY | 2025-06-06 13:31 | XMS_ITS | Clinical Summary ---
Author Organization [facility] [employer] Address [address] [place] [address] Care Team Providers Care Oncology Social Work Name Role Phone Eric Pretty MD Primary Care Provider [phone] Source Comments [facility],non-owned Affiliates and Associated Physician Practices is amultiple site organization consisting of ambulatory clinics and hospital sitesin [place], [place], [place]. This disclosure is being madepursuant to the Care Everywhere program and may not contain all information available regarding this patient. Last updated 18.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
--- OUTSIDE RECORDS SUMMARY | 2025-06-06 13:31 | XMS_ITS | Encounter Summary ---
Author Organization [facility] Address 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 Gender Identity Not on file Sexual Orientation Not on file documented as of this encounter Plan of Treatment Upcoming Encounters Date Type Department Care Team (Late st Contact Info) Description 07/20/2025 8:00 AM CDT Procedure visit [facility]ART AND VASCULAR EP AT [address] [place] [address] 07/26/2025 2:00 PM CDT Office Visit [facility] HEART AND VASCULAR EP AT [address] [place] [address] Cuauhtemoc Saez DNP [address] [place] [address] 08/08/2025 12:00 PM CDT Office Visit [facility] At [facility] [address] [place] [address] Dominic Young MD [address] [facility] [address] [place] [address] documented as of this encounter Visit Diagnoses Not on filedocumented in this encounter Care Teams Radiator Core Tester Relationship Specialty Start Date End Date Eric Pretty MD [address] [place] [address] PCP - General Internal Medicine 11/24/19 documented as of this encounter
--- OUTSIDE RECORDS SUMMARY | 2025-06-06 13:32 | XMS_ITS | Encounter Summary ---
Author Organization [facility] Address [address] [address] Care Team Providers Care Tug Master Name Role Phone Jarvis Harding Primary Care Provider [phone] Jarvis Harding Primary Care Provider [phone] Kindra Fernandez MD Primary Care Provider Eric Pretty MD Primary Care Provider [phone] Kale MONTANA MD, Master Hunt Unavailable [phone] Dominic Young MD Unavailable [phone] Carlos Hernandez MD Unavailable [phone] Encounter Details Date Type Department Care Team (Late st Contact Info) Description 12/17/2016 Orders Only [facility] ProviderChuck MD [address] [place] [address] Social History Tobacco Use Types Packs/Day Years Used Date Smoking Tobacco: Former Alcohol Use Standard Drinks/Week Comments Yes 0 (1 standard drink = 0.6 oz pur e alcohol) Sex and Gender Information Value Date Recorded Sex Assigned at Not on file 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 Gender Identity Not on file Sexual Orientation [...] on filedocumented in this encounter Care Teams Tug Master Relationship Specialty Start Date End Date Jarvis Harding [address] [place] [address] PCP - General 02/14/17 08/27/17 Jarvis Harding [address] [place] [address] PCP - General 07/13/14 02/13/17 Kindra Fernandez MD [address] [place] [address] PCP - General Family Practice 08/28/17 01/27/18 Eric Pretty MD [address] [place] [address] PCP - General Internal Medicine 01/28/18 Master Henley III, MD [address] [place] [address] Consulting Physician Rheumatology 01/28/18 01/26/24 Dominic Young MD [address] [place] [address] Consulting Physician Cardiology 01/04/20 Carlos Hernandez MD [address] [place] [address] Consulting Physician Rheumatology 01/27/24 documented as of this encounter
--- OUTSIDE RECORDS SUMMARY | 2025-06-06 13:32 | XMS_ITS | Encounter Summary ---
Author Organization [facility] Address [address] [address] Care Team Providers Care Laborer Pullet Farm Name Role Phone Jarvis Harding Primary Care Provider [phone] Jarvis Harding Primary Care Provider [phone] Kindra Fernandez MD Primary Care Provider Eric Pretty MD Primary Care Provider [phone] Kale MONTANA MD, Master Hunt Unavailable [phone] Dominic Young MD Unavailable [phone] Carlos Hernandez MD Unavailable [phone] Encounter Details Date Type Department Care Team (Late st Contact Info) Description 11/07/2016 Orders Only [facility] ProviderChuck MD [address] [place] [address] Social History Tobacco Use Types Packs/Day Years Used Date Smoking Tobacco: Former Alcohol Use Standard Drinks/Week Comments Yes 0 (1 standard drink = 0.6 oz pur e alcohol) Sex and Gender Information Value Date Recorded Sex Assigned at Not on file 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 Gender Identity Not on file Sexual Orientation [...] on filedocumented in this encounter Care Teams Laborer Pullet Farm Relationship Specialty Start Date End Date Jarvis Harding [address] [place] [address] PCP - General 02/14/17 08/27/17 Jarvis Harding [address] [place] [address] PCP - General 07/13/14 02/13/17 Kindra Fernandez MD [address] [place] [address] PCP - General Family Practice 08/28/17 01/27/18 Eric Pretty MD [address] [place] [address] PCP - General Internal Medicine 01/28/18 Master Henley III, MD [address] [place] [address] Consulting Physician Rheumatology 01/28/18 01/26/24 Dominic Young MD [address] [place] [address] Consulting Physician Cardiology 01/04/20 Carlos Hernandez MD [address] [place] [address] Consulting Physician Rheumatology 01/27/24 documented as of this encounter
--- OUTSIDE RECORDS SUMMARY | 2025-06-06 13:32 | XMS_ITS | Encounter Summary ---
Author Organization [facility] Address [address] [place] [address] Care Team Providers Care Quarter Folder Name Role Phone Eric Pretty MD Primary Care Provider [phone] Kale MONTANA MD, Master Hunt Unavailable Dominic Young MD Unavailable [phone] Carlos Hernandez MD Unavailable [phone] Encounter Details Date Type Department Care Team (Late st Contact Info) Description 04/14/2019 Telephone [facility] [address] [place] [address] Kia Kwan MD [address] [place] [address] Social History Tobacco Use Types [...] on file 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 documented as of this encounter Visit Diagnoses Not on filedocumented in this encounter Care Teams Quarter Folder Relationship Specialty Start Date End Date Eric Pretty MD [address] [place] [address] PCP - General Internal Medicine 01/28/18 Master Henley III, MD [address] [place] [address] Consulting Physician Rheumatology 01/28/18 01/26/24 Dominic Young MD [address] [place] [address] Consulting Physician Cardiology 01/04/20 Carlos Hernandez MD [address] [place] [address] Consulting Physician Rheumatology 01/27/24 documented as of this encounter
--- OUTSIDE RECORDS SUMMARY | 2025-06-06 13:32 | XMS_ITS | Encounter Summary ---
Author Organization [facility] Address [address] [place] [address] Phone Care Team Providers Care Performance [employer] Specialist Name Role Phone Eric Pretty MD Primary Care Provider [phone] Kale MONTANA MD, Master Hunt Unavailable [phone] Dominic Young MD Unavailable [phone] Carlos Hernandez MD Unavailable [phone] Reason for Referral * Diagnostic Imaging (Routine) - Closed Specialty Diagnoses / Procedures Referred By Contac t Referred To Contact Radiology Diagnoses Arthrodesis status Foraminal stenosis of lumbar region Lumbar radiculopathy Procedures CT Lumbar Spine WO Contrast Denise Walker CNS Phone: tel: fax: [facility] [address] Referral ID Status Reason Start Date Expiration Date Visits Re quested Visits Authorized [id number] Closed 03/08/2019 09/16/2020 1 1 * Consultation (Routine) - Closed Specialty Diagnoses / Procedures Referred By Contac t Referred To Contact Pain Management Diagnoses Arthrodesis status Foraminal stenosis of lumbar region Lumbar radiculopathy Denise Walker CNS Phone: tel: fax: Kia Kwan MD [address] [place] [address] Phone: tel: fax: Referral ID Status Reason Start Date Expiration Date V isits Requested Visits Authorized [id number] Closed Specialty Services Required 03/08/2019 09/16/2020 1 1 Scheduling Instructions Please schedule for left L4-L5 transforaminal injection.i Question Answer Please select the performing region: [facility] [[id number]] To provider: KIA KWAN [[id number]] # of visits: 1 Encounter Details Date Type Department Care Team (Late st Contact Info) Description 03/08/2019 Orders Only [facility] Orthopaedic Surgery [address] [facility] 1st Floor [address] [place] [id number] Denise Walker CNS [address] [facility] [address] [place] [address] Arthrodesis status (Primary Dx); Foraminal stenosis of [...] on file 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 Denise Walker [facility] IMG CT PROCEDURES Final Res ult documented in this encounter Visit Diagnoses Diagnosis Arthrodesis status- Primary Foraminal stenosis of lumbar region Lumbar radiculopathy Thoracic or lumbosacral neuritis or radiculitis, unspecified Arthrodesis status Foraminal stenosis of lumbar region Lumbar radiculopathy Thoracic or lumbosacral neuritis or radiculitis, unspecified documented in this encounter Care Teams Performance Solutions Specialist Relationship Specialty Start Date End Date Eric Pretty MD [address] [place] [address] PCP - General Internal Medicine 01/28/18 Master Henley III, MD [address] [place] [address] Consulting Physician Rheumatology 01/28/18 01/26/24 Dominic Young MD [address] [facility] [address] [place] [address] Consulting Physician Cardiology 01/04/20 Carlos Hernandez MD [address] [place] [address] Consulting Physician Rheumatology 01/27/24 documented as of this encounter
--- NOTE | 2025-06-06 13:44 | ED_ITS ---
HPI - General Adult General Chief complaint: Fall Stated complaint: fall-hit head-hip pain Time Seen by Provider: 06/06/25 12:53 History of Present Illness HPI narrative: 79-year-old male presenting to the emergency department for evaluation after having a mechanical fall yesterday. Patient reports he has had some increased generalized weakness and did have a recent hospitalization at [facility] and subsequent rehab stay. Patient states he is supposed to be ambulating with his walker due to increased generalized weakness. Patient states he was only using his cane yesterday stepped off a curb stumble then ended up striking his head and injuring his left hip. This occurred yesterday and patient was able to go home last night. Patient called his primary care physician was advised to be evaluated since he does take Eliquis. Patient was also complaining some increased discomfort of the left hip. Patient's last hospitalization was secondary to dehydration and no evidence of underlying infection was found. Patient does have some lower extremity edema but his primary care physician does not want to over diurese him an order to cause worsening dehydration. Patient and family were offered lab evaluation but patient states he feels at his baseline, declined labs and states he prefers to be discharged home. Related Data Home Medications ?Medication ?Instructions ?Recorded ?Confirmed ?Last Taken ?Type clopidogrel 75 mg tablet 75 mg PO DAILY 06/06/22 06/01/25 12/21/22 History ferrous sulfate 325 mg (65 mg 325 mg PO DAILY 10/23/23 06/01/25 Unknown History iron) tablet folic acid 1 mg tablet 1 mg PO DAILY 01/06/24 06/01/25 Unknown History methotrexate sodium 2.5 mg tablet 15 mg PO WEEKLY 01/06/24 06/01/25 04/29/25 History prednisone 5 mg tablet 5 mg PO DAILY 11/16/24 06/01/25 Unknown History apixaban 5 mg tablet (Eliquis) 5 mg PO BID 05/06/25 06/01/25 Unknown History cholecalciferol (vitamin D3) 25 25 mcg PO DAILY 05/06/25 06/01/25 Unknown History mcg (1,000 unit) tablet empagliflozin 25 mg tablet 25 mg PO DAILY 05/06/25 06/01/25 Unknown History (Jardiance) gabapentin 300 mg capsule 300 mg PO TID 05/06/25 06/01/25 Unknown History metoprolol succinate 25 mg 12.5 mg PO DAILY 05/06/25 06/01/25 Unknown History tablet,extended release 24 hr nitroglycerin 0.6 mg sublingual 0.6 mg sublingual Q5-15M PRN chest 05/06/25 06/01/25 Unknown History tablet pain torsemide 5 mg tablet 5 mg PO DAILY PRN edema 05/06/25 06/01/25 Unknown History Allergies Allergy/AdvReac Type Severity Reaction Status Date / Time alprazolam (From Xanax) Allergy Intermediate Itching Verified 06/06/25 12:46 fentanyl Allergy Intermediate Itching Verified 06/06/25 12:46 tramadol Allergy Intermediate Itching Verified 06/06/25 12:46 Review of Systems Review of Systems: All systems reviewed & are unremarkable except as noted in HPI and below PMFSH Past Medical History Medical History A-fib ASHD (arteriosclerotic heart disease) Back pain with history of spinal surgery Benign prostatic hyperplasia BMI 35.0-35.9,adult Bruise of toe C. difficile diarrhea Cellulitis Changing skin lesion Chronic anemia Chronic low back pain Chronic orthostatic hypotension Chronic, continuous use of opioids Due to chronic lumbago. Claustrophobia Colon cancer screening Colon polyps Coronary artery disease With history of stent to the mid LAD in November 2015. Cardiac catheterization in May 2017 showed a patent LAD stent and 90% ostial stenosis in a 3rd diagonal, which was a small vessel and jailed by previous stent. No other high-grade lesions were noted. Reportedly, he had a stent in November 2019 done at [facility] in [place]. 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 Hemoglobin A1c was 8.3% in March 2021 Left anterior shoulder pain Left groin mass Left knee pain Mastodynia of left breast Muscle weakness (~11/2022) Nasal drainage Neck pain Non-healing skin lesion Obstructive sleep apnea Intolerant to CPAP On long-term drug therapy Osteoarthritis Paige-rectal abscess Physical debility Pilonidal cyst Pneumonia Post-phlebitic syndrome Prostate CA Status post external radiation. RBBB Rheumatoid arthritis Rupture of left Achilles tendon Sick sinus syndrome Sinus drainage SOB (shortness of breath) Swelling of joint, knee, left Swelling of left hand Swelling of left lower extremity Tear of left rotator cuff Tinea Tobacco abuse Toe infection Toe pain, right Trauma Type 2 diabetes mellitus with diabetic polyneuropathy, 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, with long-term current use of insulin Unspecified place in other non-institutional residence as the place of occurrence of the external cause URI (upper respiratory infection) Vision changes Vitamin D deficiency Surgical History Surgical History History of removal of pigmented skin lesion Hx of heart artery stent X3 Pacemaker placed 12/14/2021 S/P tooth extraction Status post cataract extraction of both eyes with insertion of intraocular lens Status post cholecystectomy Status post inguinal hernia repair Status post lumbar spine operation X3 most recently December 2020 Status post tonsillectomy Status post vasectomy Family History Family History Father Asthma Family history of cardiovascular disease Mother Family history of cardiovascular disease Family history of arthritis Family history of Alzheimer's disease Family history of malignant neoplasm of kidney Other Diabetes mellitus Hypertension Social History Social History Social History: He lives in [place] with his of 55 years. They have 1 son. He quit smoking cigarettes in February of 1989. Over the last several years he started to smoke a pipe, typically 5 to 6 times per day. He drinks perhaps 1 alcoholic beverage a month. No drug use. He designates his , Monika, as his surrogate decision maker. He is listed as a full code. Smoking packs per day: 0.5 Smoking cigarettes per day: 10.0 Years smoked: 30 Smoking pack-years: 15.00 Smoking status: Current every day smoker Tobacco type: pipe Additional smoking assessment comments: CURRENTLY SMOKES A PIPE Alcohol intake: never Drinks per week: 1 Alcohol use details: occasional beer while cooking Substance use: never Substance use type: does not use Do You Feel Safe in your Home?: Yes Lack of Transportation: No Lack of Food: Never True Current Housing: I Have Housing Concerned About Future Housing: No Difficulty Paying Gas/Electric Bills: No Difficulty Paying for Meds: No Currently Unemployed: No Education: High School Diploma/GED Difficulty w/ Childcare or Family Care: No Living arrangements: with family Additional living arrangements comments: patient lives with Occupation/Education: retired Gender identity (if verbalized by the patient): Male Sexual Orientation (if Verbalized by the Patient): Straight or Heterosexual Spiritual care concerns: No Agree to blood products: Yes Exam Narrative: APPEARANCE: Well appearing, no pain, no distress, well-nourished. HEAD: normocephalic, atraumatic. EYES: PERRLA/EOMI, conjunctivae clear. NOSE: Normal no drainage EARS:TMS clear with good light reflex. THROAT: Pharynx clear, no exudate. NECK: Supple. No adenopathy, no masses. RESPIRATORY: Airway patent, respirations nonlabored. Clear to auscultation bilaterally, no rales, rhonchi, wheezing. CARDIOVASCULAR: Regular rate and rhythm without murmurs rubs or gallops. ABDOMINAL: Soft, nontender, nondistended, normal bowel sounds MUSCULOSKELETAL: No extremity edema NEURO: Alert. Cranial nerves II through XII intact. Good gait. Good coordination SKIN: Warm, dry. Normal Color Course Vital Signs Vital signs: Vital Signs Temperature 97.9 F 06/06/25 12:16 Pulse Rate 79 06/06/25 12:16 Respiratory Rate 18 06/06/25 12:16 Blood Pressure 95/79 L 06/06/25 12:16 Pulse Oximetry 97 06/06/25 12:16 Oxygen Delivery Room Air 06/06/25 12:16 Temperature 97.9 F 06/06/25 12:16 Pulse Rate 81 06/06/25 15:01 Respiratory Rate 16 06/06/25 15:01 Blood Pressure 109/82 06/06/25 15:01 Pulse Oximetry 98 06/06/25 15:01 Oxygen Delivery Room Air 06/06/25 12:16 Medical Decision Making MDM Narrative Medical decision making narrative: 79-year-old male presents emergency department for evaluation after a head injury. Patient had negative CT cervical spine and negative CT brain. X-ray shows no acute abnormality of the left hip. On re-evaluation patient has been able to ambulate at home using his walker. Orthostatic vital signs were ordered in the emergency department. Patient was mildly orthostatic positive. Patient was offered IV fluids but patient and declined. The prefer to be discharged home. They are encouraged of close follow-up with their physicians as outpatient and they were also encouraged return to the emergency department the worsening symptoms. Differential Diagnosis Differential Diagnosis: Hip fracture, hip contusion, subdural hematoma, subarachnoid hemorrhage, cervical spine fracture Vital Signs Vital Signs: Vital Signs Temperature 97.9 F 06/06/25 12:16 Pulse Rate 79 06/06/25 12:16 Respiratory Rate 18 06/06/25 12:16 Blood Pressure 95/79 L 06/06/25 12:16 Pulse Oximetry 97 06/06/25 12:16 Oxygen Delivery Room Air 06/06/25 12:16 Temperature 97.9 F 06/06/25 12:16 Pulse Rate 81 06/06/25 15:01 Respiratory Rate 16 06/06/25 15:01 Blood Pressure 109/82 06/06/25 15:01 Pulse Oximetry 98 06/06/25 15:01 Oxygen Delivery Room Air 06/06/25 12:16 Imaging Data Radiologist's impression: Impressions Head CT 06/06/25 12:44 Impression: No acute intracranial hemorrhage or suspicious mass effect. Cervical Spine CT 06/06/25 12:51 IMPRESSION: No evidence for cervical spine fracture or traumatic subluxation. Multilevel degenerative changes of the cervical spine. Discharge Plan Discharge Clinical Impression: Head injury, Orthostatic hypotension, Edema Patient Disposition: Home Condition: Stable Instructions: Antibiotic Form, Head Injury (ED) Additional Instructions: Follow head injury guidelines. Continue to utilize your walker when ambulating. Your blood pressures were low in the emergency department but you preferred not to receive any IV fluids or have any additional workup. Drink plenty of fluids at home and continue have close follow-up with your primary care physician. If you have any worsening symptoms then please call or return to the emergency department. Patient Language: Paraguayan Prescriptions: No Action methotrexate sodium 2.5 mg tablet 15 mg PO WEEKLY Rx Instructions: Friday evening folic acid 1 mg tablet 1 mg PO DAILY Humulin R U-500 (Conc) Kwikpen 500 unit/mL (3 mL) insulin pen See Rx Instructions subcut DAILY MDD 145 90 Days Qty: 27 1RF Rx Instructions: 100 units before breakfast, 35 units before dinner clopidogrel 75 mg tablet 75 mg PO DAILY (DME) Home Nebulizer Machine See Rx Instructions .Route .MEDSUPPLY Qty: 1 0RF Rx Instructions: Pt to use with Albuterol 0.63% vials for SOB/ Cough and wheezing. (DME) pen needle, diabetic [BD Ultra-Fine Gabrielle Pen Needle] 32 gauge x 5/32 needle See Rx Instructions .Route Qty: 300 1RF Rx Instructions: As directed prednisone 5 mg tablet 5 mg PO DAILY sertraline 100 mg tablet 150 mg PO DAILY Qty: 135 1RF buspirone 10 mg tablet 10 mg PO TID Qty: 90 1RF ferrous sulfate 325 mg (65 mg iron) tablet 325 mg PO DAILY pantoprazole 40 mg tablet,delayed release (DR/EC) See Rx Instructions .ROUTE .COMPLEX Qty: 90 1RF Dose Instruction: TAKE 1 TABLET BY MOUTH ONCE DAILY IN THE MORNING Rx Instructions: TAKE 1 TABLET BY MOUTH ONCE DAILY IN THE MORNING atorvastatin 40 mg tablet See Rx Instructions .ROUTE .COMPLEX Qty: 90 1RF Dose Instruction: Take 1 tablet by mouth once daily Rx Instructions: Take 1 tablet by mouth once daily cholecalciferol (vitamin D3) 25 mcg (1,000 unit) tablet 25 mcg PO DAILY metoprolol succinate 25 mg tablet extended release 24 hr 12.5 mg PO DAILY nitroglycerin 0.6 mg tablet, sublingual 0.6 mg sublingual Q5-15M PRN (Reason: chest pain) Rx Instructions: do not exceed 3 doses per episode torsemide 5 mg tablet 5 mg PO DAILY PRN (Reason: edema) gabapentin 300 mg capsule 300 mg PO TID Jardiance 25 mg tablet 25 mg PO DAILY Eliquis 5 mg tablet 5 mg PO BID Follow-up/Referrals: Eric Pretty MD [Primary Care Provider] -
== END 2025-06-06 15:18 | disposition home or self-care (01) ==
PROVIDERS: Emergency Provider Emergency Medicine; PCP Internal Medicine
DX: S09.90XA Unspecified injury of head, initial encounter (principal); I95.1 Orthostatic hypotension; R60.9 Edema, unspecified; F17.210 Nicotine dependence, cigarettes, uncomplicated; I48.91 Unspecified atrial fibrillation; I25.10 Atherosclerotic heart disease of native coronary artery without angina pectoris; F32.A Depression, unspecified; F41.9 Anxiety disorder, unspecified; Z86.718 Personal history of other venous thrombosis and embolism; K21.9 Gastro-esophageal reflux disease without esophagitis; G47.30 Sleep apnea, unspecified; E11.9 Type 2 diabetes mellitus without complications; Z79.4 Long term (current) use of insulin; W01.0XXA Fall on same level from slipping, tripping and stumbling without subsequent striking against object, initial encounter
CPT/HCPCS: 70450; 72125; 73502; 99284

== ENCOUNTER 2025-06-11 11:02 | Observation (INO) | payer MEDICARE, SELFPAY ==
[2025-06-11] VITALS (9 sets, daily range): BP systolic 105–139; BP diastolic 57–76; PULSE 78–81; RESP 14–20; TEMP 36.4–36.7; O2SAT 93–98; BMI 36.8
--- NOTE | ~2025-06-11 | CT_ITS ---
EXAMINATION: CTA chest DATE: 06/11/2025 13:17 CDT INDICATION: Chest pain TECHNIQUE: Computed tomographic angiography (CTA) of the chest was performed with 100 mL Omnipaque-35 0 intravenous contrast. The dose-length product was 889.20 mGy-cm. Maximum intensity projection 3D-re constructions of the aorta and other arteries were constructed by the technologist on a separate work station. COMPARISON: 05/03/2025 FINDINGS/OBSERVATIONS: PULMONARY ARTERIES: No filling defect is identified within the main or proximal pulmonary artery. The main pulmonary artery is not enlarged. THORACIC AORTA: No aneurysmal dilatation or dissection is present. The great vessels are intact LUNGS: The lungs are clear MEDIASTINUM: No morphologically suspicious or pathologically enlarged lymph nodes are identified with in the mediastinum or bilateral axilla. The esophagus is air opacified and distended, and interval change from prior. BONES OF THE CHEST: No acute fracture. No significant degenerative disease. No lytic or blastic lesions. Incidental notation is made of pectus excavatum HEART: The heart is enlarged, without pericardial effusion. IMPRESSION: No pulmonary embolus. No thoracic aortic dissection. Air opacification of the minimally distended esophagus, a nonspecific finding. Reviewed, dictated and finalized at location A.
--- NOTE | ~2025-06-11 | XR_ITS ---
CHEST RADIOGRAPH CLINICAL HISTORY: chest pain . COMPARISON: 05/03/2025 TECHNIQUE: Single portable view of the chest. FINDINGS The left mid lung is partially obscured due to pacemaker/AICD generator. Wires project over the right atrium, coronary sinus and right ventricle. The remainder of the cardiomediastinal silhouette is enlarged, but otherwise unremarkable. The lungs are clear. IMPRESSION: Cardiomegaly, without focal infiltrate or effusion. Reviewed, dictated and finalized at location A.
--- NOTE | 2025-06-11 11:08 | ECG_ITS ---
Test Date: 2025-06-11 11:08:26 Measurements Intervals [place] Rate: 80 P: 241 KS: 170 QRS: 190 QRSD: 183 T: -44 QT: 443 QTc: 512 Interpretive Statements ELECTRONIC VENTRICULAR PACEMAKER ABNORMAL RHYTHM ECG Compared to ECG 05/03/2025 13:57:49 Atrial flutter no longer present Electronically Signed On 06-12-2025 14:06:49 CDT by Farhad Valdes M.D.
[2025-06-11] MEDS: ONDANSETRON INJ 4 MG/2 ML VIAL IV PUSH (11:25)
[2025-06-11] MEDS: MORPHINE SULFATE (*CRX) 2 MG/ML INJ IV PUSH (11:25)
[2025-06-11 11:28] LABS: Hematocrit 40.2 % (42.0-52.0); Hemoglobin 12.8 g/dL (14.0-18.0); Immature Granulocyte Percent A 0.6 % (0-0.5); Lymphocytes Absolute Auto 0.63 K/mm3 (0.9-3.2); Mean Corpuscular HGB Conc 31.8 g/dl (32-36); Mean Corpuscular Hemoglobin 30.2 pg (26-34); Mean Corpuscular Volume 94.8 fl (80-100); Nucleated Red Blood Cells Absolute Auto 0.000 K/mm3 (0.0-0.012); Nucleated Red Blood Cells Perc 0.0 % (0.0-0.2); Platelet Count Result 255 k/mm3 (150-375); Red Blood Count 4.24 M/mm3 (4.6-6.20); White Blood Count 5.2 K/mm3 (4.5-10.0)
[2025-06-11 11:38] LABS: INR 1.1; Prothrombin Time 14.6 Seconds (11.1-14.7)
[2025-06-11 11:39] LABS: Partial Thromboplastin Time 30.0 Seconds (22.3-36.8)
--- OUTSIDE RECORDS SUMMARY | 2025-06-11 11:42 | XMS_ITS | Continuity of Care Document ---
Author Organization [facility] Address [address] [place] [address] Phone Care Team Providers Care Life Sciences Instructor Name Role Phone Chance Monroy Unavailable Unavailable Procedures Procedure Date Visual Field Examination(s) Office/outpatient Visit, Est Corneal Pachymetry Fundus Photography W/ Report Eye Exam, New Patient Advance Directives Directive Yes / No Effective Date File Name No Information Encounters Encounter Description Practice Location Reason(s) For Visit Diagnoses Date Provider Providers Copied on Encounter [facility], [address] [place] [address] [address], [place], [place], [id number], tel:[phone] [facility] No Information [address], [place], [address], . tel:[phone] Referring Provider: Alondra Thomas [address], [place], [address]. tel:[phone] Office/outpat ient Visit, Est [facility], [address] [place] [address] [address], [place], [place], [id number], tel:[phone] [facility] No Information [address], [place], [address], [place]. tel:[phone] Referring Provider: Chance Wagner, [address], [place], [address]. tel:[phone] [facility], [address], [place], [place], [id number], [place] tel:[phone] [facility] [place] No Information [address] , [address], [place], [address], [place]. tel:[phone] Family History Family Member Type Diagnosis Age [...]
--- OUTSIDE RECORDS SUMMARY | 2025-06-11 11:42 | XMS_ITS | Clinical Summary ---
Author Organization Unknown Care Team Providers Care Sap Analyst Name Role Phone ORLANDO GLOVER, MICHEL Unavailable Unavailable RASHID RN, GIULIANO Unavailable Unavailabl e LUZ PT, LINETTE Unavailable Unavailable MARY JANE CHIP LOFT WORKER, VANDANA Unavailable Unavailabl e YENNY OT, LIANG Unavailable Unavailable Payers Payer Name Policy Type Policy Number Effective Date Expira tion Date MEDIC[facility] [id number] Problems Condition Name Condition Details Condition Category Status Onset Date Resolution Date Last Treatment Date Treating Clinician Comments UNSPECIFIED SEVERE PROTEIN-KARON FREDY MALNUTRITION Active 06-06 00:00: 00 ACUTE KIDNEY FAILURE, UNSPECIFIED Active 06-03 00:00: 00 TYPE 2 DIABETES MELLITUS WITH DIABETIC NEUROPATHY, UNSP Active 11-17 00:00: 00 TYPE 2 DIABETES MELLITUS WITH HYPERGLYCEMI A Active 11-17 00:00: 00 HYP HRT AND CHR KDNY DIS W HRT FAIL AND STG 1-4/UNSP CHR KDNY Active 11-17 00:00: 00 UNSPECIFIED SYSTOLIC (CONGESTIVE) HEART FAILURE Active 11-17 00:00: 00 TYPE 2 DIABETES MELLITUS W DIABETIC CHRONIC KIDNEY DISEASE Active 11-17 00:00: 00 CHRONIC KIDNEY DISEASE, UNSPECIFIED Active 11-17 00:00: 00 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 KIDNEY DISEASE Active 11-17 00:00: 00 RHEUMATOID ARTHRITIS, UNSPECIFIED Active 11-17 00:00: 00 PAROXYSMAL ATRIAL FIBRILLATION Active 11-17 00:00: 00 SICK SINUS SYNDROME Active 11-17 00:00: 00 AGE-RELATED OSTEOPOROSIS W/O CURRENT PATHOLOGICAL FRACTURE Active 11-17 00:00: 00 DEPRESSION, UNSPECIFIED Active 11-17 00:00: 00 METABOLIC ENCEPHALOPAT HY Active 11-17 00:00: 00 CHRONIC PAIN SYNDROME Active 11-17 00:00: 00 GASTRO-ESOPH AGEAL REFLUX DISEASE WITHOUT ESOPHAGITIS Active 11-17 00:00: 00 UNSPECIFIED OSTEOARTHRIT IS, UNSPECIFIED SITE Active 11-17 00:00: 00 OBSTRUCTIVE SLEEP APNEA (ADULT) (PEDIATRIC) Active 11-17 00:00: 00 ISCHEMIC CARDIOMYOPAT HY Active 11-17 00:00: 00 HYPERLIPIDEM IA, UNSPECIFIED Active 11-17 00:00: 00 CANDIDAL STOMATITIS Active 11-17 00:00: 00 DYSPHAGIA, UNSPECIFIED Active 11-17 00:00: 00 PRESENCE OF CARDIAC PACEMAKER Active 11-17 00:00: 00 PRESENCE OF CORONARY ANGIOPLASTY IMPLANT AND GRAFT Active 11-17 00:00: 00 Allergies, Adverse Reactions, Alerts Allergy Name Allergy Type Status Severity Reaction(s) Onset Date Inactive Date Treating Clinician Comments NO KNOWN ALLERGIES Propensity to adverse reactions Active 06-03 18:45: 10 Medications Ordered Medication Name Filled Medication Name Start Date Stop Date Current Medication? Ordering Clinician Indication Dosage Frequency Signature (SIG) Comments Components Aspirin Childrens 81 mg chewable tablet 01-17 00:00: 00 03-18 23:59 :00 No [id number] 1 tablet DAILY 1 tablet DAILY (route: oral) Med Classific ation: Hematolog ical Agents atorvastati n 40 mg tablet 01-17 00:00: 00 03-18 23:59 :00 No [id number] 1 tablet DAILY 1 tablet DAILY (route: oral) Med Classific ation: Cardiovas cular Therapy Agents Benadryl Allergy 25 mg tablet 01-17 00:00: 00 01-26 00:00 :00 No [id number] 1 tablet DAILY 1 tablet DAILY (route: oral) Med Classific ation: Respirato ry Therapy Agents Cholestyram ine Light 4 gram powder for susp in a packet 01-17 00:00: 00 03-18 23:59 :00 No [id number] 1 packet DAILY 1 packet DAILY (route: oral) Med Classific ation: Cardiovas cular Therapy Agents Fish Oil 1,000 mg (120 mg-180 mg) capsule 01-17 00:00: 00 01-26 00:00 :00 No [id number] 1 capsule DAILY 1 capsule DAILY (route: oral) Med Classific ation: Cardiovas cular Therapy Agents folic acid 800 mcg tablet 01-17 00:00: 00 01-26 00:00 :00 No [id number] 1 tablet DAILY 1 tablet DAILY (route: oral) Med Classific ation: Electroly te Balance-N utritiona l Products gabapentin 300 mg capsule 01-17 00:00: 00 03-18 23:59 :00 No [id number] 3 capsule 2 TIMES DAILY 3 capsule 2 TIMES DAILY (route: oral) Med Classific ation: Central Nervous System Agents glimepiride 2 mg tablet 01-17 00:00: 00 01-26 00:00 :00 No [id number] 1 tablet 2 TIMES DAILY 1 tablet 2 TIMES DAILY (route: oral) Med Classific ation: Endocrine hydrocodone 10 mg-acetamin ophen 325 mg tablet 01-17 00:00: 00 01-26 00:00 :00 No [id number] 1 tablet EVERY 6 HOURS 1 tablet EVERY 6 HOURS (route: oral) Med Classific ation: Analgesic , Anti-infl ammatory or Antipyret ic Jardiance 10 mg tablet 01-17 00:00: 00 03-18 23:59 :00 No [id number] 1 tablet DAILY 1 tablet DAILY (route: oral) Med Classific ation: Endocrine lisinopril 10 mg tablet 01-17 00:00: 00 03-18 23:59 :00 No [id number] 1 tablet DAILY 1 tablet DAILY (route: oral) Med Classific ation: Cardiovas cular Therapy Agents midodrine 5 mg tablet 01-17 00:00: 00 01-26 00:00 :00 No [id number] 1 tablet 2 TIMES DAILY 1 tablet 2 TIMES DAILY (route: oral) Med Classific ation: Cardiovas cular Therapy Agents Multivitami n 50 Plus tablet 01-17 00:00: 00 03-18 23:59 :00 No [id number] 1 tablet DAILY 1 tablet DAILY (route: oral) Med Classific ation: Electroly te Balance-N utritiona l Products nitroglycer in 0.1 mg/hr transdermal 24 hour patch 3- 00:00: 00 03-18 23:59 :00 No [id number] 1 patch, transde rmal 24 hours DAILY 1 patch, transderma l 24 hours DAILY (route: transderma l) Med Classific ation: Cardiovas cular Therapy Agents Novolin 70/30 U-100 Insulin 100 unit/mL subcutaneou s suspension 01-17 00:00: 00 01-26 23:59 :00 No [id number] 100 unit BEFORE BREAKFAST 100 unit BEFORE BREAKFAST (route: subcutaneo us) Med Classific ation: Endocrine Novolin 70/30 U-100 Insulin 100 unit/mL subcutaneou s suspension 01-17 00:00: 00 03-18 23:59 :00 No [id number] 80 unit BEDTIME 80 unit BEDTIME (route: subcutaneo us) Med Classific ation: Endocrine pantoprazol e 40 mg tablet,yg yed release 01-17 00:00: 00 03-18 23:59 :00 No [id number] 1 tablet DAILY 1 tablet DAILY (route: oral) Med Classific ation: Gastroint estinal Therapy Agents Plavix 75 mg tablet 01-17 00:00: 00 03-18 23:59 :00 No [id number] 1 tablet DAILY 1 tablet DAILY (route: oral) Med Classific ation: Hematolog ical Agents Vitamin D3 50 mcg (2,000 unit) tablet 01-17 00:00: 00 03-18 23:59 :00 No [id number] 1 tablet DAILY 1 tablet DAILY (route: oral) Med Classific ation: Electroly te Balance-N utritiona l Products hydrocodone 5 mg-acetamin ophen 325 mg tablet 3-10 00:00: 00 03-18 23:59 :00 No [id number] 1 tablet EVERY 6 HOURS 1 tablet EVERY 6 HOURS (route: oral) Med Classific ation: Analgesic , Anti-infl ammatory or Antipyret ic Tylenol Extra Strength 500 mg tablet 01-26 00:00: 00 03-18 23:59 :00 No [id number] 2 tablet EVERY 6 HOURS 2 tablet EVERY 6 HOURS (route: oral) Med Classific ation: Analgesic , Anti-infl ammatory or Antipyret ic vancomycin 125 mg capsule 01-26 00:00: 00 02-03 23:59 :00 No [id number] 1 capsule 4 TIMES DAILY 1 capsule 4 TIMES DAILY (route: oral) Med Classific ation: Anti-Infe ctive Agents Lactobacill us acidophilus capsule 02-06 00:00: 00 03-18 23:59 :00 No [id number] 1 capsule DAILY 1 capsule DAILY (route: oral) Med Classific ation: Gastroint estinal Therapy Agents torsemide 10 mg tablet - 00:00: 00 03-25 00:00 :00 No [id number] 1 tablet 1 tablet (route: oral) Med Classific ation: Cardiovas cular Therapy Agents prednisone 5 mg tablet -22 00:00: 00 Yes [id number] RHEUMATOID ARTHRITIS 1 tablet BEDTIME 1 tablet BEDTIME (route: oral) Med Classific ation: Endocrine pantoprazol e 40 mg tablet,yg yed release 4-17 00:00: 00 Yes [id number] GERD 1 tablet ONCE DAILY 1 tablet ONCE DAILY (route: oral) Med Classific ation: Gastroint estinal Therapy Agents clopidogrel 75 mg tablet -05 00:00: 00 03-25 00:00 :00 No [id number] Per instruc tions ONCE DAILY Per instructio ns ONCE DAILY (route: oral) Med Classific ation: Hematolog ical Agents fesoterodin e ER 8 mg tablet,exte nded release 24 hr 4-03 00:00: 00 03-25 00:00 :00 No [id number] Unavailable Per instruc tions ONCE DAILY Per instructio ns ONCE DAILY (route: oral) Med Classific ation: Genitouri nary Therapy atorvastati n 40 mg tablet 03-25 00:00: 00 Yes [id number] HIGH CHOLESTEROL 1 tablet DAILY 1 tablet DAILY (route: oral) Med Classific ation: Cardiovas cular Therapy Agents Eliquis 5 mg tablet 03-25 00:00: 00 Yes [id number] BLOOD THINNER 1 tablet 2 TIMES DAILY 1 tablet 2 TIMES DAILY (route: oral) Med Classific ation: Hematolog ical Agents ferrous sulfate 325 mg (65 mg iron) tablet 03-25 00:00: 00 Yes [id number] SUPPLRMENT 1 tablet DAILY 1 tablet DAILY (route: oral) Med Classific ation: Electroly te Balance-N utritiona l Products folic acid 1 mg tablet 03-25 00:00: 00 Yes [id number] SUPPLEMENT 1 tablet DAILY 1 tablet DAILY (route: oral) Med Classific ation: Electroly te Balance-N utritiona l Products gabapentin 300 mg capsule 03-25 00:00: 00 Yes [id number] RHEUMATOID ARTHRITIS 1 capsule 3 TIMES DAILY 1 capsule 3 TIMES DAILY (route: oral) Med Classific ation: Central Nervous System Agents Humulin R U-500 (Conc) Insulin Kwikpen 500 unit/mL (3 mL) [facility] 03-25 00:00: 00 Yes [id number] DIABETES 80 unit BEFORE BREAKFAST 80 unit BEFORE BREAKFAST ([facility] Med Classific ation: Endocrine Jardiance 10 mg tablet 03-25 00:00: 00 Yes [id number] DIABETES 1 tablet DAILY 1 tablet DAILY (route: oral) Med Classific ation: Endocrine metoprolol succinate ER 25 mg tablet,exte nded release 24 hr 03-25 00:00: 00 06-03 00:00 :00 No [id number] HIGH BLOOD PRESSURE .5 tablet DAILY .5 tablet DAILY (route: oral) Med Classific ation: Cardiovas cular Therapy Agents torsemide 5 mg tablet 03-25 00:00: 00 06-03 00:00 :00 No [id number] DIURETIC 1 tablet DAILY 1 tablet DAILY (route: oral) Med Classific ation: Cardiovas cular Therapy Agents Vitamin D3 25 mcg (1,000 unit) capsule 03-25 00:00: 00 06-03 00:00 :00 No [id number] SUPPLEMENT 1 capsule DAILY 1 capsule DAILY (route: oral) Med Classific ation: Electroly te Balance-N utritiona l Products methotrexat e sodium 2.5 mg tablet 03-28 00:00: 00 Yes [id number] RHEUMATOID ARTHITIS 8 tablet WEEKLY 8 tablet WEEKLY (route: oral) Med Classific ation: Antineopl astics Vital Signs Vital Name Observation Time Observation Value Commen ts Temperature 2025-06-10 15:42:00.000 97.7 [degF] Temperature 2025-06-10 12:52:00.000 98.3 [degF] Temperature 2025-06-06 10:23:00.000 96.3 [degF] Temperature 2025-06-03 18:41:00.000 97.5 [degF] BMI (%) 2025-06-03 10:14:46.000 37 kg/m2 Height 2025-06-03 10:14:36.000 71 [in_us] Pulse 2025-06-10 15:42:00.000 80 /min Pulse 2025-06-10 12:52:00.000 80 /min Pulse 2025-06-06 10:23:00.000 80 /min Pulse 2025-06-03 18:41:00.000 80 /min O2 Saturation (%) 2025-06-10 15:44:00.000 92 % O2 Saturation (%) 2025-06-10 12:52:00.000 96 % O2 Saturation (%) 2025-06-06 10:23:00.000 93 % O2 Saturation (%) 2025-06-03 18:41:00.000 94 % Respirations 2025-06-10 15:42:00.000 18 /min Respirations 2025-06-10 12:52:00.000 16 /min Respirations 2025-06-06 10:23:00.000 18 /min Respirations 2025-06-03 18:41:00.000 16 /min Weight (lbs) 2025-06-10 12:52:00.000 268 [lb_av] Weight (lbs) 2025-06-03 10:14:46.000 270 [lb_av] Systolic Blood Pressure 2025-06-10 15:42:00.000 112 mm [Hg] Systolic Blood Pressure 2025-06-10 12:52:00.000 130 mm [Hg] Systolic Blood Pressure 2025-06-06 10:23:00.000 108 mm [Hg] Systolic Blood Pressure 2025-06-03 18:41:00.000 120 mm [Hg] Diastolic Blood Pressure 2025-06-10 15:42:00.000 64 mm [Hg] Diastolic Blood Pressure 2025-06-10 12:52:00.000 70 mm [Hg] Diastolic Blood Pressure 2025-06-06 10:23:00.000 68 mm [Hg] Diastolic Blood Pressure 2025-06-03 18:41:00.000 64 mm [Hg] Plan of Treatment Planned Activity Planned Date Details Comments Future Scheduled Test RN TO OBSE RVE, ASSESS, EVALUATE, AND DEVELOP AN INDIVIDUALIZED PLAN OF CARE. AGENCY MAY ACCEPT ORDERS FROM CONSULTING PHYSICIANS RN TO OBSERVE AND ASSESS, SALESPERSON FLOOR COVERINGS/TAX ACCOUNTING MANAGER TO OBSERVE FOR RISK FOR FALLS AND INSTRUCT IN FALL PREVENTION, HOME SAFETY, MEDICATION MANAGEMENT, INFECTION PREVENTION, AND NUTRITION MANAGEMENT. RN/SALESPERSON FLOOR COVERINGS/TAX ACCOUNTING MANAGER NURSE MAY PERFORM O2 SATURATION LEVEL ON ADMISSION AND PRN FOR RN TO ASSESS/SALESPERSON FLOOR COVERINGS TO OBSERVE PATIENT, WITH NOTIFICATION TO THE PHYSICIAN IF SATURATION IS 90% IN THE ABSENCE OF MORE SPECIFIC PARAMETERS FROM THE PHYSICIAN. AGENCY MAY PERFORM A RESUMPTION OF CARE VISIT FOLLOWING ANY HOSPITAL ADMISSION. RN/SALESPERSON FLOOR COVERINGS/TAX ACCOUNTING MANAGER TO MONITOR CO-MORBID CONDITIONS LISTED ON THE PLAN OF CARE AND ANY NEW CONDITIONS THAT PRESENT THEMSELVES DURING THIS EPISODE TO IDENTIFY CHANGES AND INTERVENE TO MINIMIZE COMPLICATIONS. [code = RN TO OBSERVE, ASSESS, EVALUATE, AND DEVELOP AN INDIVIDUALIZED PLAN OF CARE. AGENCY MAY ACCEPT ORDERS FROM CONSULTING PHYSICIANS RN TO OBSERVE AND ASSESS, SALESPERSON FLOOR COVERINGS/TAX ACCOUNTING MANAGER TO OBSERVE FOR RISK FOR FALLS AND INSTRUCT IN FALL PREVENTION, HOME SAFETY, MEDICATION MANAGEMENT, INFECTION PREVENTION, AND NUTRITION MANAGEMENT. RN/SALESPERSON FLOOR COVERINGS/TAX ACCOUNTING MANAGER NURSE MAY PERFORM O2 SATURATION LEVEL ON ADMISSION AND PRN FOR RN TO ASSESS/SALESPERSON FLOOR COVERINGS TO OBSERVE PATIENT, WITH NOTIFICATION TO THE PHYSICIAN IF SATURATION IS 90% IN THE ABSENCE OF MORE SPECIFIC PARAMETERS FROM THE PHYSICIAN. AGENCY MAY PERFORM A RESUMPTION OF CARE VISIT FOLLOWING ANY HOSPITAL ADMISSION. RN/SALESPERSON FLOOR COVERINGS/TAX ACCOUNTING MANAGER TO MONITOR CO-MORBID CONDITIONS LISTED ON THE PLAN OF CARE AND ANY NEW CONDITIONS THAT PRESENT THEMSELVES DURING THIS EPISODE TO IDENTIFY CHANGES AND INTERVENE TO MINIMIZE COMPLICATIONS.] Future Scheduled Test RISK FOR H OSPITALIZATION; RN TO ASSESS/TEACH, TAX ACCOUNTING MANAGER/SALESPERSON FLOOR COVERINGS TO OBSERVE/TEACH PATIENT/CAREGIVER ON RISK FOR HOSPITALIZATION/EMERGENCY ROOM VISITS, TEACH SIGNS AND SYMPTOMS THAT PUT PATIENT AT RISK, WHEN TO NOTIFY NURSE/PHYSICIAN OF COMPLICATIONS/DECLINE, AND WHEN TO CALL 911. [code = RISK FOR HOSPITALIZATION; RN TO ASSESS/TEACH, TAX ACCOUNTING MANAGER/SALESPERSON FLOOR COVERINGS TO OBSERVE/TEACH PATIENT/CAREGIVER ON RISK FOR HOSPITALIZATION/EMERGENCY ROOM VISITS, TEACH SIGNS AND SYMPTOMS THAT PUT PATIENT AT RISK, WHEN TO NOTIFY NURSE/PHYSICIAN OF COMPLICATIONS/DECLINE, AND WHEN TO CALL 911.] Future Scheduled Test CARDIOVASC ULAR SYSTEM; RN TO ASSESS/TEACH, SALESPERSON FLOOR COVERINGS/TAX ACCOUNTING MANAGER TO OBSERVE/TEACH RELATED TO ALTERED CARDIOVASCULAR STATUS TO MINIMIZE COMPLICATIONS AND REDUCE HOSPITALIZATION. [code = CARDIOVASCULAR SYSTEM; RN TO ASSESS/TEACH, SALESPERSON FLOOR COVERINGS/TAX ACCOUNTING MANAGER TO OBSERVE/TEACH RELATED TO ALTERED CARDIOVASCULAR STATUS TO MINIMIZE COMPLICATIONS AND REDUCE HOSPITALIZATION.] Future Scheduled Test HEART FAIL URE; RN TO ASSESS/TEACH, SALESPERSON FLOOR COVERINGS/TAX ACCOUNTING MANAGER TO OBSERVE/TEACH CARDIOPULMONARY SYSTEM TO IDENTIFY SIGNS OF DECOMPENSATION AND INTERVENE TO MINIMIZE THE SEVERITY OF FLUID OVERLOAD. OBSERVE PATIENT ABILITY TO MONITOR AND RECORD DAILY WEIGHTS AND VITAL SIGNS, INCLUDING PULSE AND BLOOD PRESSURE; RECORD PATIENT REPORTED WEIGHT, OR WEIGH PATIENT NEEDED. REPORT INCREASED EDEMA OR WEIGHT GAIN OF >2 LBS IN 1 DAY OR >5 LBS IN 1 WEEK OR 5LBS OR MORE OVER TARGET WEIGHT. MAY MEASURE ABDOMINAL GIRTH IF UNABLE TO WEIGH. SCALES AND BP MONITOR TO BE PROVIDED IF NEEDED. [code = HEART FAILURE; RN TO ASSESS/TEACH, SALESPERSON FLOOR COVERINGS/TAX ACCOUNTING MANAGER TO OBSERVE/TEACH CARDIOPULMONARY SYSTEM TO IDENTIFY SIGNS OF DECOMPENSATION AND INTERVENE TO MINIMIZE THE SEVERITY OF FLUID OVERLOAD. OBSERVE PATIENT ABILITY TO MONITOR AND RECORD DAILY WEIGHTS AND VITAL SIGNS, INCLUDING PULSE AND BLOOD PRESSURE; RECORD PATIENT REPORTED WEIGHT, OR WEIGH PATIENT NEEDED. REPORT INCREASED EDEMA OR WEIGHT GAIN OF >2 LBS IN 1 DAY OR >5 LBS IN 1 WEEK OR 5LBS OR MORE OVER TARGET WEIGHT. MAY MEASURE ABDOMINAL GIRTH IF UNABLE TO WEIGH. SCALES AND BP MONITOR TO BE PROVIDED IF NEEDED.] Future Scheduled Test PACEMAKER MANAGEMENT; RN/SALESPERSON FLOOR COVERINGS/TAX ACCOUNTING MANAGER TO PROVIDE SKILLED TEACHING AND ASSIST WITH MANAGEMENT OF PACEMAKER. [code = PACEMAKER MANAGEMENT; RN/SALESPERSON FLOOR COVERINGS/TAX ACCOUNTING MANAGER TO PROVIDE SKILLED TEACHING AND ASSIST WITH MANAGEMENT OF PACEMAKER.] Future Scheduled Test PAIN MANAG EMENT; RN TO ASSESS AND TEACH, TAX ACCOUNTING MANAGER/SALESPERSON FLOOR COVERINGS TO OBSERVE AND TEACH AND PROVIDE EDUCATION ON PAIN MANAGEMENT TECHNIQUES. [code = PAIN MANAGEMENT; RN TO ASSESS AND TEACH, TAX ACCOUNTING MANAGER/SALESPERSON FLOOR COVERINGS TO OBSERVE AND TEACH AND PROVIDE EDUCATION ON PAIN MANAGEMENT TECHNIQUES.] Future Scheduled Test DIABETES M ANAGEMENT; RN TO ASSESS AND TEACH, TAX ACCOUNTING MANAGER/SALESPERSON FLOOR COVERINGS TO OBSERVE AND TEACH INSTRUCTIONS OF DIABETIC CARE TO INCLUDE: DIET SKIN CARE, SIGNS AND SYMPTOMS OF HYPO/HYPERGLYCEMIA, PROPER ADMINISTRATION OF DIABETIC MEDICATION. RN/TAX ACCOUNTING MANAGER/SALESPERSON FLOOR COVERINGS TO INSTRUCT ON DIABETIC FOOT CARE AND MONITOR FOR SKIN LESIONS ON LOWER EXTREMITIES. BLOOD GLUCOSE TESTING QID RN TO ASSESS AND TEACH, TAX ACCOUNTING MANAGER/SALESPERSON FLOOR COVERINGS TO OBSERVE AND TEACH PATIENT/CAREGIVER ABILITY TO PERFORM AND RECORD BLOOD GLUCOSE TESTING ORDERED AND TO REPORT ABNORMAL FINDINGS TO PHYSICIAN. RN/TAX ACCOUNTING MANAGER/SALESPERSON FLOOR COVERINGS MAY PERFORM BLOOD GLUCOSE TEST NEEDED. RN/TAX ACCOUNTING MANAGER/SALESPERSON FLOOR COVERINGS TO REPORT TO PHYSICIAN BLOOD GLUCOSE READINGS GREATER THAN 300 OR LESS THAN 80 RN/TAX ACCOUNTING MANAGER/SALESPERSON FLOOR COVERINGS TO INSTRUCT PATIENT ON IMPORTANCE OF HGBA1C MONITORING, KIDNEY FUNCTION TEST, EYE AND FOOT EXAMS. [code = DIABETES MANAGEMENT; RN TO ASSESS AND TEACH, TAX ACCOUNTING MANAGER/SALESPERSON FLOOR COVERINGS TO OBSERVE AND TEACH INSTRUCTIONS OF DIABETIC CARE TO INCLUDE: DIET SKIN CARE, SIGNS AND SYMPTOMS OF HYPO/HYPERGLYCEMIA, PROPER ADMINISTRATION OF DIABETIC MEDICATION. RN/TAX ACCOUNTING MANAGER/SALESPERSON FLOOR COVERINGS TO INSTRUCT ON DIABETIC FOOT CARE AND MONITOR FOR SKIN LESIONS ON LOWER EXTREMITIES. BLOOD GLUCOSE TESTING QID RN TO ASSESS AND TEACH, TAX ACCOUNTING MANAGER/SALESPERSON FLOOR COVERINGS TO OBSERVE AND TEACH PATIENT/CAREGIVER ABILITY TO PERFORM AND RECORD BLOOD GLUCOSE TESTING ORDERED AND TO REPORT ABNORMAL FINDINGS TO PHYSICIAN. RN/TAX ACCOUNTING MANAGER/SALESPERSON FLOOR COVERINGS MAY PERFORM BLOOD GLUCOSE TEST NEEDED. RN/TAX ACCOUNTING MANAGER/SALESPERSON FLOOR COVERINGS TO REPORT TO PHYSICIAN BLOOD GLUCOSE READINGS GREATER THAN 300 OR LESS THAN 80 RN/TAX ACCOUNTING MANAGER/SALESPERSON FLOOR COVERINGS TO INSTRUCT PATIENT ON IMPORTANCE OF HGBA1C MONITORING, KIDNEY FUNCTION TEST, EYE AND FOOT EXAMS.] Future Scheduled Test BLOOD CLOT MANAGEMENT; RN TO ASSESS AND TEACH/ SALESPERSON FLOOR COVERINGS /TAX ACCOUNTING MANAGER TO OBSERVE AND TEACH AND PROVIDE EDUCATION ON BLOOD CLOT MANAGEMENT. [code = BLOOD CLOT MANAGEMENT; RN TO ASSESS AND TEACH/ SALESPERSON FLOOR COVERINGS /TAX ACCOUNTING MANAGER TO OBSERVE AND TEACH AND PROVIDE EDUCATION ON BLOOD CLOT MANAGEMENT.] Future Scheduled Test MALNUTRITI ON MANAGEMENT; RN TO ASSESS AND TEACH, TAX ACCOUNTING MANAGER/SALESPERSON FLOOR COVERINGS TO OBSERVE AND TEACH AND INSTRUCT PATIENT / CAREGIVER ON INTERVENTIONS TO IMPROVE NUTRITIONAL INTAKE AND PATIENT WELLBEING. [code = MALNUTRITION MANAGEMENT; RN TO ASSESS AND TEACH, TAX ACCOUNTING MANAGER/SALESPERSON FLOOR COVERINGS TO OBSERVE AND TEACH AND INSTRUCT PATIENT / CAREGIVER ON INTERVENTIONS TO IMPROVE NUTRITIONAL INTAKE AND PATIENT WELLBEING.] Future Scheduled Test FALL REDUC TION MANAGEMENT; RN TO ASSESS AND OBSERVE, SALESPERSON FLOOR COVERINGS/TAX ACCOUNTING MANAGER TO OBSERVE FALL RISK FACTORS AND EDUCATE PATIENT/CAREGIVER ON STRATEGIES TO MINIMIZE THE RISK OF FALLING. [code = FALL REDUCTION MANAGEMENT; RN TO ASSESS AND OBSERVE, SALESPERSON FLOOR COVERINGS/TAX ACCOUNTING MANAGER TO OBSERVE FALL RISK FACTORS AND EDUCATE PATIENT/CAREGIVER ON STRATEGIES TO MINIMIZE THE RISK OF FALLING.] Future Scheduled Test PHYSICAL T HERAPIST TO EVALUATE FOR STRENGTHENING [code = PHYSICAL THERAPIST TO EVALUATE FOR STRENGTHENING ] Future Scheduled Test OCCUPATION AL THERAPIST TO EVALUATE FOR STRENGTHENING [code = OCCUPATIONAL THERAPIST TO EVALUATE FOR STRENGTHENING ] Future Scheduled Test PRN VISITS ; NUMBER OF RN/SALESPERSON FLOOR COVERINGS/TAX ACCOUNTING MANAGER VISITS: 1 RN/SALESPERSON FLOOR COVERINGS/TAX ACCOUNTING MANAGER TO PERFORM: VS FOR THE FOLLOWING REASONS: WT GAIN, ABNORMAL BS, AMS [code = PRN VISITS; NUMBER OF RN/SALESPERSON FLOOR COVERINGS/TAX ACCOUNTING MANAGER VISITS: 1 RN/SALESPERSON FLOOR COVERINGS/TAX ACCOUNTING MANAGER TO PERFORM: VS FOR THE FOLLOWING REASONS: WT GAIN, ABNORMAL BS, AMS] Future Scheduled Test AGENCY MAY PERFORM A RESUMPTION OF CARE VISIT FOLLOWING ANY HOSPITAL ADMISSION. PT TO EVALUATE, OBSERVE / ASSESS, AND MONITOR, CHIP LOFT WORKER TO OBSERVE AND MONITOR, PROVIDE SKILLED THERAPEUTIC INTERVENTION, ACTIVITY, EDUCATION, AND TRAINING TO ADDRESS; PT/CHIP LOFT WORKER TO PROVIDE GAIT TRAINING FOR IMPROVED MOBILITY AND /OR TO NORMALIZE GAIT PATTERN NEUROMUSCULAR RE-EDUCATION / BALANCE / POSTURAL CONTROL (PT) THERAPEUTIC EXERCISES AND ESTABLISHING A HOME EXERCISE PROGRAM (PT/CHIP LOFT WORKER) PT/CHIP LOFT WORKER TO PROVIDE STAIR TRAINING SIT TO/FROM STAND TRANSFERS (PT/CHIP LOFT WORKER) PT / CHIP LOFT WORKER TO OBSERVE FOR EARLY SIGNS AND SYMPTOMS OF DEPRESSION OR DEPRESSION GETTING WORSE AND TO EDUCATE ON HOW TO FIND HELP. PT / CHIP LOFT WORKER TO MONITOR FOR HYPO/HYPERGLYCEMIA AND CONDUCT ROUTINE FOOT INSPECTIONS. RECORD PATIENT REPORTED BLOOD SUGAR LEVELS AND NOTIFY PHYSICIAN AND/OR THE RN CLINICAL GEOTECHNICAL ENGINEERING TECHNICIAN FOR PHYSICIAN NOTIFICATION IF BLOOD SUGAR LEVELS ARE OUTSIDE ORDERED PARAMETERS. TEACH PATIENT/CAREGIVER ON DAILY FOOT INSPECTIONS PT / CHIP LOFT WORKER TO EDUCATE ON HEART FAILURE SELF-MANAGEMENT PT/CHIP LOFT WORKER TO IDENTIFY FALL RISK FACTORS; EDUCATE THE PATIENT/CAREGIVER ON WAYS TO REDUCE FALL RISK FACTORS AND ESTABLISH HOME EXERCISE PROGRAM TO MINIMIZE FALL RISK. MAY TEACH THE PATIENT FLOOR RECOVERY WHEN CLINICALLY APPROPRIATE [code = AGENCY MAY PERFORM A RESUMPTION OF CARE VISIT FOLLOWING ANY HOSPITAL ADMISSION. PT TO EVALUATE, OBSERVE / ASSESS, AND MONITOR, CHIP LOFT WORKER TO OBSERVE AND MONITOR, PROVIDE SKILLED THERAPEUTIC INTERVENTION, ACTIVITY, EDUCATION, AND TRAINING TO ADDRESS; PT/CHIP LOFT WORKER TO PROVIDE GAIT TRAINING FOR IMPROVED MOBILITY AND /OR TO NORMALIZE GAIT PATTERN NEUROMUSCULAR RE-EDUCATION / BALANCE / POSTURAL CONTROL (PT) THERAPEUTIC EXERCISES AND ESTABLISHING A HOME EXERCISE PROGRAM (PT/CHIP LOFT WORKER) PT/CHIP LOFT WORKER TO PROVIDE STAIR TRAINING SIT TO/FROM STAND TRANSFERS (PT/CHIP LOFT WORKER) PT / CHIP LOFT WORKER TO OBSERVE FOR EARLY SIGNS AND SYMPTOMS OF DEPRESSION OR DEPRESSION GETTING WORSE AND TO EDUCATE ON HOW TO FIND HELP. PT / CHIP LOFT WORKER TO MONITOR FOR HYPO/HYPERGLYCEMIA AND CONDUCT ROUTINE FOOT INSPECTIONS. RECORD PATIENT REPORTED BLOOD SUGAR LEVELS AND NOTIFY PHYSICIAN AND/OR THE RN CLINICAL GEOTECHNICAL ENGINEERING TECHNICIAN FOR PHYSICIAN NOTIFICATION IF BLOOD SUGAR LEVELS ARE OUTSIDE ORDERED PARAMETERS. TEACH PATIENT/CAREGIVER ON DAILY FOOT INSPECTIONS PT / CHIP LOFT WORKER TO EDUCATE ON HEART FAILURE SELF-MANAGEMENT PT/CHIP LOFT WORKER TO IDENTIFY FALL RISK FACTORS; EDUCATE THE PATIENT/CAREGIVER ON WAYS TO REDUCE FALL RISK FACTORS AND ESTABLISH HOME EXERCISE PROGRAM TO MINIMIZE FALL RISK. MAY TEACH THE PATIENT FLOOR RECOVERY WHEN CLINICALLY APPROPRIATE] Goal Patient Goal - RETURN TO [facility] Goal Provider Goal - A PLAN OF CARE WILL BE ESTABLISHED THAT MEETS THE PATIENTS NEEDS. PATIENT WILL DEMONSTRATE OXYGEN SATURATION WITHIN NORMAL LIMITS OR PATIENTS OPTIMAL LEVEL ESTABLISHED BY THE PHYSICIAN THROUGHOUT CARE. CHANGES TO CO-MORBID CONDITIONS AND ANY NEW CONDITIONS WILL BE IDENTIFIED AND REPORTED TO THE PHYSICIAN. Goal Provider Goal - PATIENT/CAREGIVER WILL VERBALIZE UNDERSTANDING OF SIGNS AND SYMPTOMS THAT PUT THE PATIENT AT RISK FOR HOSPITALIZATION /EMERGENCY ROOM VISITS, WHEN TO NOTIFY NURSE/PHYSICIAN OF COMPLICATIONS/DECLINE AND WHEN TO CALL 911. Goal Provider Goal - PATIENT / CAREGIVER WILL VERBALIZE/DEMONSTRATE UNDERSTANDING OF MEASURES TO MANAGE ALTERED CARDIOVASCULAR STATUS BY END OF CERT PERIOD Goal Provider Goal - PATIENT / CAREGIVER WILL VERBALIZE/DEMONSTRATE AN ABILITY TO ADHERE TO SELF-MANAGEMENT OF HF TO MINIMIZE COMPLICATIONS AND AVOID HOSPITALIZATION BY END OF EPISODE. Goal Provider Goal - PATIENT / CAREGIVER WILL VERBALIZE/DEMONSTRATE UNDERSTANDING OF CARE AND MANAGEMENT OF PACEMAKER BY END OF EPISODE. Goal Provider Goal - PATIENT / CAREGIVER WILL VERBALIZE / DEMONSTRATE UNDERSTANDING OF PAIN CONTROL MEASURES BY END OF CERT PERIOD Goal Provider Goal - PATIENT / CAREGIVER WILL VERBALIZE / DEMONSTRATE AN ABILITY TO ADHERE TO SELF-MANAGEMENT OF DIABETES MANAGEMENT BY END OF CERT PERIOD Goal Provider Goal - PATIENT/CAREGIVER WILL VERBALIZE UNDERSTANDING OF CARE AND MANAGEMENT OF BLOOD CLOT BY END OF EPISODE. Goal Provider Goal - PATIENT / CAREGIVER WILL VERBALIZE/DEMONSTRATE APPROPRIATE METHODS TO IMPROVE NUTRITIONAL STATUS BY END OF EPISODE. Goal Provider Goal - PATIENT/CAREGIVER WILL VERBALIZE/DEMONSTRATE UNDERSTANDING OF FALL RISK FACTORS AND IMPLEMENT STRATEGIES TO MINIMIZE FALL RISK. PATIENT/CAREGIVER WILL VERBALIZE/DEMONSTRATE AN ABILITY TO ADHERE TO FALL REDUCTION SELF-MANAGEMENT AND LIFE-STYLE CHANGES BY END OF CERT PERIOD Goal Provider Goal - Goal Provider Goal - Goal Provider Goal - Goal Provider Goal - PT LTG: PATIENT WILL DEMONSTRATE IMPROVED SAFE FUNCTIONAL MOBILITY BY IMPROVING AMBULATION FROM CONTACT GUARD ASSIST WITH FRONT WHEELED WALKER 80 FEET TO INDEPENDENT WITH FRONT WHEEL WALKER 250 FEET IN ORDER TO RETURN TO COMMUNITY LEVEL ACTIVITY TO BE ACHIEVED IN 6 WEEKS ... PT LTG: PATIENT WILL DEMONSTRATE REDUCED FALL RISK EVIDENCED BY IMPROVING TINETTI SCORE FROM 14/28 TO 20/28 IN 6 WEEKS PT LTG: PATIENT WILL DEMONSTRATE IMPROVED FUNCTIONAL STRENGTH EVIDENCED BY FIVE TIMES SIT TO STAND TEST (CUT SCORE >12 SECONDS INDICATES AN INCREASED FALL RISK) IMPROVING FROM UNABLE TO ASSESS TO COMPLETING AND 20 SECONDS OR LESS IN 6 WEEKS PT LTG: PATIENT WILL DEMONSTRATE INCREASED STRENGTH OF BILATERAL LOWER EXTREMITIES FROM 3+/5-4/5 AND 6 WEEKS IN ORDER TO IMPROVE FUNCTIONAL AMBULATION AND REDUCE RISK OF FALLS ... PT LTG: PATIENT WILL DEMONSTRATE IMPROVED ABILITY TO SAFELY NEGOTIATE STAIRS FROM UNABLE TO CONTACT GUARD ASSIST IN 6 WEEKS ... PT STG: PATIENT WILL DEMONSTRATE IMPROVED ABILITY TO PERFORM SIT TO/FROM STAND TRANSFERS TO REDUCE THE RISK OF SKIN BREAKDOWN AND REDUCE FALL RISK FROM CONTACT GUARD ASSIST TO INDEPENDENT IN 1 ATTEMPT IN 3 WEEKS ... PT LTG: EARLY IDENTIFICATION OF WORSENING DEPRESSION WITH TIMELY SN AND/OR PHYSICIAN NOTIFICATION. PATIENTS BLOOD SUGAR WILL REMAIN WELL CONTROLLED WITH SELF-MANAGEMENT THROUGHOUT EPISODE OF CARE. PT STG: PATIENT WILL BE ABLE TO WEIGH SELF WITH USE OF WHEELED WALKER AND CONTACT GUARD ASSIST IN 2 WEEKS ... PT LTG: PATIENT/CAREGIVER WILL BE ABLE TO IDENTIFY SIGNS OF EXACERBATION OF HEART FAILURE AND VERBALIZE / DEMONSTRATE HOW TO MANAGE SYMPTOMS AND HOW TO ADHERE TO HEART FAILURE SELF-MANAGEMENT AND LIFE-STYLE CHANGES BY END OF EPISODE. PT LTG: PATIENT/CAREGIVER WILL DEMONSTRATE ADHERENCE TO FALL REDUCTION SELF-MANAGEMENT AND REDUCING FALL RISK FACTORS TO MINIMIZE FALL RISK BY END OF EPISODE PT LTG: PATIENT WILL BE INDEPENDENT WITH IMPLEMENTATION OF HEP WITHIN 2WEEKS Encounters Start Date/Time End Date/Time Encounter Type Admission Type Attending [facility] Care Department Encounter ID Discharge Date Discharge Status Discharge Condition Discharge Reason Percent Goals Met 2025-06-03 00:00:00 2025-08-01 00:00:00 Outpatient GIULIANO HARP [facility] [id number] 21.43
--- OUTSIDE RECORDS SUMMARY | 2025-06-11 11:42 | XMS_ITS | Clinical Summary ---
Author Organization Unknown Care Team Providers Care Carpentry Specialist Name Role Phone ORLANDO GLOVER, MICHEL Unavailable Unavailable RASHID RN, GIULIANO Unavailable Unavailabl e LUZ PT, LINETTE Unavailable Unavailable MARY JANE TAR POT WORKER, VANDANA Unavailable Unavailabl e YENNY OT, LIANG Unavailable Unavailable Payers Payer Name Policy Type Policy Number Effective Date Expira tion Date [facility]IC[facility] [id number] Problems Condition Name Condition Details Condition Category [...] 01-17 00:00: 00 03-18 23:59 :00 No [id number] 1 tablet DAILY 1 tablet DAILY (route: oral) Med Classific ation: Hematolog ical Agents atorvastati n 40 mg tablet 01-17 00:00: 00 03-18 23:59 :00 No [id number] 1 tablet DAILY 1 tablet DAILY (route: oral) Med Classific ation: Cardiovas cular Therapy Agents Benadryl Allergy 25 mg tablet 01-17 00:00: 00 01-26 00:00 :00 No [id number] 1 tablet DAILY 1 tablet DAILY (route: oral) Med Classific ation: Respirato ry Therapy Agents Cholestyram ine Light 4 gram powder for susp in a packet 01-17 00:00: 00 03-18 23:59 :00 No [id number] 1 packet DAILY 1 packet DAILY (route: oral) Med Classific ation: Cardiovas cular Therapy Agents Fish Oil 1,000 mg (120 mg-180 mg) capsule 01-17 00:00: 00 01-26 00:00 :00 No [id number] 1 capsule DAILY 1 capsule DAILY (route: oral) Med Classific ation: Cardiovas cular Therapy Agents folic acid 800 mcg tablet 01-17 00:00: 00 01-26 00:00 :00 No [id number] 1 tablet DAILY 1 tablet DAILY (route: oral) Med Classific ation: Electroly te Balance-N utritiona l Products gabapentin 300 mg capsule 01-17 00:00: 00 03-18 23:59 :00 No [id number] 3 capsule 2 TIMES DAILY 3 capsule 2 TIMES DAILY (route: oral) Med Classific ation: Central Nervous System Agents glimepiride 2 mg tablet 01-17 00:00: 00 01-26 00:00 :00 No [id number] 1 tablet 2 TIMES DAILY 1 tablet 2 TIMES DAILY (route: oral) Med Classific ation: Endocrine hydrocodone 10 mg-acetamin ophen 325 mg tablet 01-17 00:00: 00 01-26 00:00 :00 No [id number] 1 tablet EVERY 6 HOURS 1 tablet EVERY 6 HOURS (route: oral) Med Classific ation: Analgesic , Anti-infl ammatory or Antipyret ic Jardiance 10 mg tablet 01-17 00:00: 00 03-18 23:59 :00 No [id number] 1 tablet DAILY 1 tablet DAILY (route: oral) Med Classific ation: Endocrine lisinopril 10 mg tablet 01-17 00:00: 00 03-18 23:59 :00 No [id number] 1 tablet DAILY 1 tablet DAILY (route: oral) Med Classific ation: Cardiovas cular Therapy Agents midodrine 5 mg tablet 01-17 00:00: 00 01-26 00:00 :00 No [id number] 1 tablet 2 TIMES DAILY 1 tablet 2 TIMES DAILY (route: oral) Med Classific ation: Cardiovas cular Therapy Agents Multivitami n 50 Plus tablet 01-17 00:00: 00 03-18 23:59 :00 No [id number] 1 tablet DAILY 1 tablet DAILY (route: oral) Med Classific ation: Electroly te Balance-N utritiona l Products nitroglycer in 0.1 mg/hr transdermal 24 hour patch 3- 00:00: 00 03-18 23:59 :00 No [id number] 1 patch, transde rmal 24 hours DAILY 1 patch, transderma l 24 hours DAILY (route: transderma l) Med Classific ation: Cardiovas cular Therapy Agents Novolin 70/30 U-100 Insulin 100 unit/mL subcutaneou s suspension 01-17 00:00: 00 01-26 23:59 :00 No [id number] 100 unit BEFORE BREAKFAST 100 unit BEFORE BREAKFAST (route: subcutaneo us) Med Classific ation: Endocrine Novolin 70/30 U-100 Insulin 100 unit/mL subcutaneou s suspension 01-17 00:00: 00 03-18 23:59 :00 No [id number] 80 unit BEDTIME 80 unit BEDTIME (route: subcutaneo us) Med Classific ation: Endocrine pantoprazol e 40 mg tablet,yg yed release 01-17 00:00: 00 03-18 23:59 :00 No [id number] 1 tablet DAILY 1 tablet DAILY (route: oral) Med Classific ation: Gastroint estinal Therapy Agents Plavix 75 mg tablet 01-17 00:00: 00 03-18 23:59 :00 No [id number] 1 tablet DAILY 1 tablet DAILY (route: oral) Med Classific ation: Hematolog ical Agents Vitamin D3 50 mcg (2,000 unit) tablet 01-17 00:00: 00 03-18 23:59 :00 No [id number] 1 tablet DAILY 1 tablet DAILY (route: oral) Med Classific ation: Electroly te Balance-N utritiona l Products hydrocodone 5 mg-acetamin ophen 325 mg tablet 3-10 00:00: 00 03-18 23:59 :00 No [id number] 1 tablet EVERY 6 HOURS 1 tablet EVERY 6 HOURS (route: oral) Med Classific ation: Analgesic , Anti-infl ammatory or Antipyret ic Tylenol Extra Strength 500 mg tablet 01-26 00:00: 00 03-18 23:59 :00 No [id number] 2 tablet EVERY 6 HOURS 2 tablet EVERY 6 HOURS (route: oral) Med Classific ation: Analgesic , Anti-infl ammatory or Antipyret ic vancomycin 125 mg capsule 01-26 00:00: 00 02-03 23:59 :00 No [id number] 1 capsule 4 TIMES DAILY 1 capsule 4 TIMES DAILY (route: oral) Med Classific ation: Anti-Infe ctive Agents Lactobacill us acidophilus capsule 02-06 00:00: 00 03-18 23:59 :00 No [id number] 1 capsule DAILY 1 capsule DAILY (route: oral) Med Classific ation: Gastroint estinal Therapy Agents torsemide 10 mg tablet - 00:00: 00 03-25 00:00 :00 No [id number] 1 tablet 1 tablet (route: oral) Med Classific ation: Cardiovas cular Therapy Agents prednisone 5 mg tablet -22 00:00: 00 Yes [id number] RHEUMATOID ARTHRITIS 1 tablet BEDTIME 1 tablet BEDTIME (route: oral) Med Classific ation: Endocrine pantoprazol e 40 mg tablet,yg yed release 4-17 00:00: 00 Yes [id number] GERD 1 tablet ONCE DAILY 1 tablet ONCE DAILY (route: oral) Med Classific ation: Gastroint estinal Therapy Agents clopidogrel 75 mg tablet -05 00:00: 00 03-25 00:00 :00 No [id number] Per instruc tions ONCE DAILY Per instructio ns ONCE DAILY (route: oral) Med Classific ation: Hematolog ical Agents fesoterodin e ER 8 mg tablet,exte nded release 24 hr 4-03 00:00: 00 03-25 00:00 :00 No [id number] Unavailable Per instruc tions ONCE DAILY Per instructio ns ONCE DAILY (route: oral) Med Classific ation: Genitouri nary Therapy atorvastati n 40 mg tablet 03-25 00:00: 00 Yes [id number] HIGH CHOLESTEROL 1 tablet DAILY 1 tablet DAILY (route: oral) Med Classific ation: Cardiovas cular Therapy Agents Eliquis 5 mg tablet 03-25 00:00: 00 Yes [id number] BLOOD THINNER 1 tablet 2 TIMES DAILY 1 tablet 2 TIMES DAILY (route: oral) Med Classific ation: Hematolog ical Agents ferrous sulfate 325 mg (65 mg iron) tablet 03-25 00:00: 00 Yes [id number] SUPPLRMENT 1 tablet DAILY 1 tablet DAILY (route: oral) Med Classific ation: Electroly te Balance-N utritiona l Products folic acid 1 mg tablet 03-25 00:00: 00 Yes [id number] SUPPLEMENT 1 tablet DAILY 1 tablet DAILY (route: oral) Med Classific ation: Electroly te Balance-N utritiona l Products gabapentin 300 mg capsule 03-25 00:00: 00 Yes [id number] RHEUMATOID ARTHRITIS 1 capsule 3 TIMES DAILY 1 capsule 3 TIMES DAILY (route: oral) Med Classific ation: Central Nervous System Agents Humulin R U-500 (Conc) Insulin Kwikpen 500 unit/mL (3 mL[facility] 03-25 00:00: 00 Yes [id number] DIABETES 80 unit BEFORE BREAKFAST 80 unit BEFORE BREAKFAST ([facility] Med Classific ation: Endocrine Jardiance 10 mg tablet 03-25 00:00: 00 Yes [id number] DIABETES 1 tablet DAILY 1 tablet DAILY (route: oral) Med Classific ation: Endocrine metoprolol succinate ER 25 mg tablet,exte nded release 24 hr 03-25 00:00: 00 06-03 00:00 :00 No [id number] HIGH BLOOD PRESSURE .5 tablet DAILY .5 tablet DAILY (route: oral) Med Classific ation: Cardiovas cular Therapy Agents torsemide 5 mg tablet 03-25 00:00: 00 06-03 00:00 :00 No [id number] DIURETIC 1 tablet DAILY 1 tablet DAILY (route: oral) Med Classific ation: Cardiovas cular Therapy Agents Vitamin D3 25 mcg (1,000 unit) capsule 03-25 00:00: 00 06-03 00:00 :00 No [id number] SUPPLEMENT 1 capsule DAILY 1 capsule DAILY (route: oral) Med Classific ation: Electroly te Balance-N utritiona l Products methotrexat e sodium 2.5 mg tablet 03-28 00:00: 00 Yes [id number] RHEUMATOID ARTHITIS 8 tablet WEEKLY 8 tablet [...] CONSULTING PHYSICIANS RN TO OBSERVE AND ASSESS, MERCHANDISE HANDLER/BORING MACHINE OPERATOR PRODUCTION TO OBSERVE FOR RISK FOR FALLS AND INSTRUCT IN FALL PREVENTION, HOME SAFETY, MEDICATION MANAGEMENT, INFECTION PREVENTION, AND NUTRITION MANAGEMENT. RN/MERCHANDISE HANDLER/BORING MACHINE OPERATOR PRODUCTION NURSE MAY PERFORM O2 SATURATION LEVEL ON ADMISSION AND PRN FOR RN TO ASSESS/MERCHANDISE HANDLER TO OBSERVE PATIENT, WITH NOTIFICATION TO THE PHYSICIAN IF SATURATION IS 90% IN THE ABSENCE OF MORE SPECIFIC PARAMETERS FROM THE PHYSICIAN. AGENCY MAY PERFORM A RESUMPTION OF CARE VISIT FOLLOWING ANY HOSPITAL ADMISSION. RN/MERCHANDISE HANDLER/BORING MACHINE OPERATOR PRODUCTION TO MONITOR CO-MORBID CONDITIONS LISTED ON THE PLAN OF CARE AND ANY NEW CONDITIONS THAT PRESENT THEMSELVES DURING THIS EPISODE TO IDENTIFY CHANGES AND INTERVENE TO MINIMIZE COMPLICATIONS. [code = RN TO OBSERVE, ASSESS, EVALUATE, AND DEVELOP AN INDIVIDUALIZED PLAN OF CARE. AGENCY MAY ACCEPT ORDERS FROM CONSULTING PHYSICIANS RN TO OBSERVE AND ASSESS, MERCHANDISE HANDLER/BORING MACHINE OPERATOR PRODUCTION TO OBSERVE FOR RISK FOR FALLS AND INSTRUCT IN FALL PREVENTION, HOME SAFETY, MEDICATION MANAGEMENT, INFECTION PREVENTION, AND NUTRITION MANAGEMENT. RN/MERCHANDISE HANDLER/BORING MACHINE OPERATOR PRODUCTION NURSE MAY PERFORM O2 SATURATION LEVEL ON ADMISSION AND PRN FOR RN TO ASSESS/MERCHANDISE HANDLER TO OBSERVE PATIENT, WITH NOTIFICATION TO THE PHYSICIAN IF SATURATION IS 90% IN THE ABSENCE OF MORE SPECIFIC PARAMETERS FROM THE PHYSICIAN. AGENCY MAY PERFORM A RESUMPTION OF CARE VISIT FOLLOWING ANY HOSPITAL ADMISSION. RN/MERCHANDISE HANDLER/BORING MACHINE OPERATOR PRODUCTION TO MONITOR CO-MORBID CONDITIONS LISTED ON THE PLAN OF CARE AND ANY NEW CONDITIONS THAT PRESENT THEMSELVES DURING THIS EPISODE TO IDENTIFY CHANGES AND INTERVENE TO MINIMIZE COMPLICATIONS.] Future Scheduled Test RISK FOR H OSPITALIZATION; RN TO ASSESS/TEACH, BORING MACHINE OPERATOR PRODUCTION/MERCHANDISE HANDLER TO OBSERVE/TEACH PATIENT/CAREGIVER ON RISK FOR HOSPITALIZATION/EMERGENCY ROOM VISITS, TEACH SIGNS AND SYMPTOMS THAT PUT PATIENT AT RISK, WHEN TO NOTIFY NURSE/PHYSICIAN OF COMPLICATIONS/DECLINE, AND WHEN TO CALL 911. [code = RISK FOR HOSPITALIZATION; RN TO ASSESS/TEACH, BORING MACHINE OPERATOR PRODUCTION/MERCHANDISE HANDLER TO OBSERVE/TEACH PATIENT/CAREGIVER ON RISK FOR HOSPITALIZATION/EMERGENCY ROOM VISITS, TEACH SIGNS AND SYMPTOMS THAT PUT PATIENT AT RISK, WHEN TO NOTIFY NURSE/PHYSICIAN OF COMPLICATIONS/DECLINE, AND WHEN TO CALL 911.] Future Scheduled Test CARDIOVASC ULAR SYSTEM; RN TO ASSESS/TEACH, MERCHANDISE HANDLER/BORING MACHINE OPERATOR PRODUCTION TO OBSERVE/TEACH RELATED TO ALTERED CARDIOVASCULAR STATUS TO MINIMIZE COMPLICATIONS AND REDUCE HOSPITALIZATION. [code = CARDIOVASCULAR SYSTEM; RN TO ASSESS/TEACH, MERCHANDISE HANDLER/BORING MACHINE OPERATOR PRODUCTION TO OBSERVE/TEACH RELATED TO ALTERED CARDIOVASCULAR STATUS TO MINIMIZE COMPLICATIONS AND REDUCE HOSPITALIZATION.] Future Scheduled Test HEART FAIL URE; RN TO ASSESS/TEACH, MERCHANDISE HANDLER/BORING MACHINE OPERATOR PRODUCTION TO OBSERVE/TEACH CARDIOPULMONARY SYSTEM TO IDENTIFY SIGNS [...] [code = HEART FAILURE; RN TO ASSESS/TEACH, MERCHANDISE HANDLER/BORING MACHINE OPERATOR PRODUCTION TO OBSERVE/TEACH CARDIOPULMONARY SYSTEM TO IDENTIFY SIGNS [...] IF NEEDED.] Future Scheduled Test PACEMAKER MANAGEMENT; RN/MERCHANDISE HANDLER/BORING MACHINE OPERATOR PRODUCTION TO PROVIDE SKILLED TEACHING AND ASSIST WITH MANAGEMENT OF PACEMAKER. [code = PACEMAKER MANAGEMENT; RN/MERCHANDISE HANDLER/BORING MACHINE OPERATOR PRODUCTION TO PROVIDE SKILLED TEACHING AND ASSIST WITH MANAGEMENT OF PACEMAKER.] Future Scheduled Test PAIN MANAG EMENT; RN TO ASSESS AND TEACH, BORING MACHINE OPERATOR PRODUCTION/MERCHANDISE HANDLER TO OBSERVE AND TEACH AND PROVIDE EDUCATION ON PAIN MANAGEMENT TECHNIQUES. [code = PAIN MANAGEMENT; RN TO ASSESS AND TEACH, BORING MACHINE OPERATOR PRODUCTION/MERCHANDISE HANDLER TO OBSERVE AND TEACH AND PROVIDE EDUCATION ON PAIN MANAGEMENT TECHNIQUES.] Future Scheduled Test DIABETES M ANAGEMENT; RN TO ASSESS AND TEACH, BORING MACHINE OPERATOR PRODUCTION/MERCHANDISE HANDLER TO OBSERVE AND TEACH INSTRUCTIONS OF DIABETIC CARE TO INCLUDE: DIET SKIN CARE, SIGNS AND SYMPTOMS OF HYPO/HYPERGLYCEMIA, PROPER ADMINISTRATION OF DIABETIC MEDICATION. RN/BORING MACHINE OPERATOR PRODUCTION/MERCHANDISE HANDLER TO INSTRUCT ON DIABETIC FOOT CARE AND MONITOR FOR SKIN LESIONS ON LOWER EXTREMITIES. BLOOD GLUCOSE TESTING QID RN TO ASSESS AND TEACH, BORING MACHINE OPERATOR PRODUCTION/MERCHANDISE HANDLER TO OBSERVE AND TEACH PATIENT/CAREGIVER ABILITY TO PERFORM AND RECORD BLOOD GLUCOSE TESTING ORDERED AND TO REPORT ABNORMAL FINDINGS TO PHYSICIAN. RN/BORING MACHINE OPERATOR PRODUCTION/MERCHANDISE HANDLER MAY PERFORM BLOOD GLUCOSE TEST NEEDED. RN/BORING MACHINE OPERATOR PRODUCTION/MERCHANDISE HANDLER TO REPORT TO PHYSICIAN BLOOD GLUCOSE READINGS GREATER THAN 300 OR LESS THAN 80 RN/BORING MACHINE OPERATOR PRODUCTION/MERCHANDISE HANDLER TO INSTRUCT PATIENT ON IMPORTANCE OF HGBA1C MONITORING, KIDNEY FUNCTION TEST, EYE AND FOOT EXAMS. [code = DIABETES MANAGEMENT; RN TO ASSESS AND TEACH, BORING MACHINE OPERATOR PRODUCTION/MERCHANDISE HANDLER TO OBSERVE AND TEACH INSTRUCTIONS OF DIABETIC CARE TO INCLUDE: DIET SKIN CARE, SIGNS AND SYMPTOMS OF HYPO/HYPERGLYCEMIA, PROPER ADMINISTRATION OF DIABETIC MEDICATION. RN/BORING MACHINE OPERATOR PRODUCTION/MERCHANDISE HANDLER TO INSTRUCT ON DIABETIC FOOT CARE AND MONITOR FOR SKIN LESIONS ON LOWER EXTREMITIES. BLOOD GLUCOSE TESTING QID RN TO ASSESS AND TEACH, BORING MACHINE OPERATOR PRODUCTION/MERCHANDISE HANDLER TO OBSERVE AND TEACH PATIENT/CAREGIVER ABILITY TO PERFORM AND RECORD BLOOD GLUCOSE TESTING ORDERED AND TO REPORT ABNORMAL FINDINGS TO PHYSICIAN. RN/BORING MACHINE OPERATOR PRODUCTION/MERCHANDISE HANDLER MAY PERFORM BLOOD GLUCOSE TEST NEEDED. RN/BORING MACHINE OPERATOR PRODUCTION/MERCHANDISE HANDLER TO REPORT TO PHYSICIAN BLOOD GLUCOSE READINGS GREATER THAN 300 OR LESS THAN 80 RN/BORING MACHINE OPERATOR PRODUCTION/MERCHANDISE HANDLER TO INSTRUCT PATIENT ON IMPORTANCE OF HGBA1C MONITORING, KIDNEY FUNCTION TEST, EYE AND FOOT EXAMS.] Future Scheduled Test BLOOD CLOT MANAGEMENT; RN TO ASSESS AND TEACH/ MERCHANDISE HANDLER /BORING MACHINE OPERATOR PRODUCTION TO OBSERVE AND TEACH AND PROVIDE EDUCATION ON BLOOD CLOT MANAGEMENT. [code = BLOOD CLOT MANAGEMENT; RN TO ASSESS AND TEACH/ MERCHANDISE HANDLER /BORING MACHINE OPERATOR PRODUCTION TO OBSERVE AND TEACH AND PROVIDE EDUCATION ON BLOOD CLOT MANAGEMENT.] Future Scheduled Test MALNUTRITI ON MANAGEMENT; RN TO ASSESS AND TEACH, BORING MACHINE OPERATOR PRODUCTION/MERCHANDISE HANDLER TO OBSERVE AND TEACH AND INSTRUCT PATIENT / CAREGIVER ON INTERVENTIONS TO IMPROVE NUTRITIONAL INTAKE AND PATIENT WELLBEING. [code = MALNUTRITION MANAGEMENT; RN TO ASSESS AND TEACH, BORING MACHINE OPERATOR PRODUCTION/MERCHANDISE HANDLER TO OBSERVE AND TEACH AND INSTRUCT PATIENT / CAREGIVER ON INTERVENTIONS TO IMPROVE NUTRITIONAL INTAKE AND PATIENT WELLBEING.] Future Scheduled Test FALL REDUC TION MANAGEMENT; RN TO ASSESS AND OBSERVE, MERCHANDISE HANDLER/BORING MACHINE OPERATOR PRODUCTION TO OBSERVE FALL RISK FACTORS AND EDUCATE PATIENT/CAREGIVER ON STRATEGIES TO MINIMIZE THE RISK OF FALLING. [code = FALL REDUCTION MANAGEMENT; RN TO ASSESS AND OBSERVE, MERCHANDISE HANDLER/BORING MACHINE OPERATOR PRODUCTION TO OBSERVE FALL RISK FACTORS AND EDUCATE PATIENT/CAREGIVER ON STRATEGIES TO MINIMIZE THE RISK OF FALLING.] Future Scheduled Test PHYSICAL T HERAPIST TO EVALUATE FOR STRENGTHENING [code = PHYSICAL THERAPIST TO EVALUATE FOR STRENGTHENING ] Future Scheduled Test OCCUPATION AL THERAPIST TO EVALUATE FOR STRENGTHENING [code = OCCUPATIONAL THERAPIST TO EVALUATE FOR STRENGTHENING ] Future Scheduled Test PRN VISITS ; NUMBER OF RN/MERCHANDISE HANDLER/BORING MACHINE OPERATOR PRODUCTION VISITS: 1 RN/MERCHANDISE HANDLER/BORING MACHINE OPERATOR PRODUCTION TO PERFORM: VS FOR THE FOLLOWING REASONS: WT GAIN, ABNORMAL BS, AMS [code = PRN VISITS; NUMBER OF RN/MERCHANDISE HANDLER/BORING MACHINE OPERATOR PRODUCTION VISITS: 1 RN/MERCHANDISE HANDLER/BORING MACHINE OPERATOR PRODUCTION TO PERFORM: VS FOR THE FOLLOWING REASONS: WT GAIN, ABNORMAL BS, AMS] Future Scheduled Test AGENCY MAY PERFORM A RESUMPTION OF CARE VISIT FOLLOWING ANY HOSPITAL ADMISSION. PT TO EVALUATE, OBSERVE / ASSESS, AND MONITOR, TAR POT WORKER TO OBSERVE AND MONITOR, PROVIDE SKILLED THERAPEUTIC INTERVENTION, ACTIVITY, EDUCATION, AND TRAINING TO ADDRESS; PT/TAR POT WORKER TO PROVIDE GAIT TRAINING FOR IMPROVED MOBILITY AND /OR TO NORMALIZE GAIT PATTERN NEUROMUSCULAR RE-EDUCATION / BALANCE / POSTURAL CONTROL (PT) THERAPEUTIC EXERCISES AND ESTABLISHING A HOME EXERCISE PROGRAM (PT/TAR POT WORKER) PT/TAR POT WORKER TO PROVIDE STAIR TRAINING SIT TO/FROM STAND TRANSFERS (PT/TAR POT WORKER) PT / TAR POT WORKER TO OBSERVE FOR EARLY SIGNS AND SYMPTOMS OF DEPRESSION OR DEPRESSION GETTING WORSE AND TO EDUCATE ON HOW TO FIND HELP. PT / TAR POT WORKER TO MONITOR FOR HYPO/HYPERGLYCEMIA AND CONDUCT ROUTINE FOOT INSPECTIONS. RECORD PATIENT REPORTED BLOOD SUGAR LEVELS AND NOTIFY PHYSICIAN AND/OR THE RN CLINICAL HIDE STRETCHER HAND FOR PHYSICIAN NOTIFICATION IF BLOOD SUGAR LEVELS ARE OUTSIDE ORDERED PARAMETERS. TEACH PATIENT/CAREGIVER ON DAILY FOOT INSPECTIONS PT / TAR POT WORKER TO EDUCATE ON HEART FAILURE SELF-MANAGEMENT PT/TAR POT WORKER TO IDENTIFY FALL RISK FACTORS; EDUCATE THE PATIENT/CAREGIVER ON WAYS TO REDUCE FALL RISK FACTORS AND ESTABLISH HOME EXERCISE PROGRAM TO MINIMIZE FALL RISK. MAY TEACH THE PATIENT FLOOR RECOVERY WHEN CLINICALLY APPROPRIATE [code = AGENCY MAY PERFORM A RESUMPTION OF CARE VISIT FOLLOWING ANY HOSPITAL ADMISSION. PT TO EVALUATE, OBSERVE / ASSESS, AND MONITOR, TAR POT WORKER TO OBSERVE AND MONITOR, PROVIDE SKILLED THERAPEUTIC INTERVENTION, ACTIVITY, EDUCATION, AND TRAINING TO ADDRESS; PT/TAR POT WORKER TO PROVIDE GAIT TRAINING FOR IMPROVED MOBILITY AND /OR TO NORMALIZE GAIT PATTERN NEUROMUSCULAR RE-EDUCATION / BALANCE / POSTURAL CONTROL (PT) THERAPEUTIC EXERCISES AND ESTABLISHING A HOME EXERCISE PROGRAM (PT/TAR POT WORKER) PT/TAR POT WORKER TO PROVIDE STAIR TRAINING SIT TO/FROM STAND TRANSFERS (PT/TAR POT WORKER) PT / TAR POT WORKER TO OBSERVE FOR EARLY SIGNS AND SYMPTOMS OF DEPRESSION OR DEPRESSION GETTING WORSE AND TO EDUCATE ON HOW TO FIND HELP. PT / TAR POT WORKER TO MONITOR FOR HYPO/HYPERGLYCEMIA AND CONDUCT ROUTINE FOOT INSPECTIONS. RECORD PATIENT REPORTED BLOOD SUGAR LEVELS AND NOTIFY PHYSICIAN AND/OR THE RN CLINICAL HIDE STRETCHER HAND FOR PHYSICIAN NOTIFICATION IF BLOOD SUGAR LEVELS ARE OUTSIDE ORDERED PARAMETERS. TEACH PATIENT/CAREGIVER ON DAILY FOOT INSPECTIONS PT / TAR POT WORKER TO EDUCATE ON HEART FAILURE SELF-MANAGEMENT PT/TAR POT WORKER TO IDENTIFY FALL RISK FACTORS; EDUCATE THE PATIENT/CAREGIVER ON WAYS TO REDUCE FALL RISK FACTORS AND ESTABLISH HOME EXERCISE PROGRAM TO MINIMIZE FALL RISK. MAY TEACH THE PATIENT FLOOR RECOVERY WHEN CLINICALLY APPROPRIATE] Goal Patient Goal - RETURN TO [facility] Goal Provider Goal - A PLAN OF [...] End Date/Time Encounter Type Admission Type Attending [facility] [place] Care Department Encounter ID Discharge Date Discharge Status Discharge Condition Discharge Reason Percent Goals Met 2025-06-03 00:00:00 2025-08-01 00:00:00 Outpatient GIULIANO HARP [facility] [id number] 21.43
--- OUTSIDE RECORDS SUMMARY | 2025-06-11 11:42 | XMS_ITS | Referral Summary ---
Author Organization [facility] [address] Address [address] [place] [address] Care Team Providers Care Motor Boss Name Role Phone Eric Pretty MD Primary Care Provider [phone] Dominic Young MD Unavailable Carlos Hernandez MD Unavailable [phone] Encounters Date Type Department Care Team Description 04/08/2025 Telephone [facility] [address] [place] [phone] Natacha Henley 04/01/2025 Telephone [facility] [address] [place] [phone] Olga Goodson Please schedule next Reclast. Thank you! 04/01/2025 1:15 PM CDT Office Visit [facility] [address] [place] [phone] Olga Bueno PA Rheumatoid arthritis of [...] occurs. Assessment & Plan (12/24/2024 12:49 PM ENVIRONMENTAL ENGINEERING INTERN): BMD 06/09/24: LFN 0.761, tscore -1.2 Total [...] occurs. Assessment & Plan (09/23/2024 2:49 PM ENVIRONMENTAL ENGINEERING INTERN): BMD 06/09/24: LFN 0.761, tscore -1.2 Total [...] candidate Assessment & Plan (09/23/2024 1:14 PM ENVIRONMENTAL ENGINEERING INTERN): Xrays 2016: Moderate osteoarthritis of the acromioclavicular [...] walks. Assessment & Plan (12/12/2022 3:07 PM ENVIRONMENTAL ENGINEERING INTERN): R shoulder hurting for the past 2-3 days. May have been triggered by carrying in grocery bags. Hx rotator cuff tears per pt's report. Recommend heat/ice, rest. Will order PT. Consider seeing ortho if not improving Atherosclerotic cardiovascular disease Assessment & Plan (11/12/2022 3:08 PM ENVIRONMENTAL ENGINEERING INTERN): S/p multiple MIs/cardiac arrest, sick sinus, CHF. Has pacemaker. 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 On eliquis and clopidogrel History of DVT of lower extremity 11/12/2022 History of prostate cancer 11/12/2022 Overview (11/12/2022): Treated with radiation in 2017 Chronic pain syndrome 12/16/2021 Type 2 diabetes mellitus wit h diabetic neuropathy, unspecified 11/17/2020 Chronic pain of right knee 06/08/2019 Assessment & Plan (09/23/2024 1:05 PM ENVIRONMENTAL ENGINEERING INTERN): Mild OA on xray from 06/04. Had [...] benefit. Assessment & Plan (01/04/2020 12:03 PM ENVIRONMENTAL ENGINEERING INTERN): Mild OA on xray from 06/04. Had cortisone shots years ago but they spiked his sugars. Had zilretta on 10/29/19 as this formulation causes less systemic steroid effect than regular triamcinolone injection. However, he reported no benefit. Assessment & Plan (10/26/2019 2:15 PM ENVIRONMENTAL ENGINEERING INTERN): Mild OA on xray from 06/04. Had [...] mgmt: [facility] ([facility]) in [facility] Assessment & Plan (04/01/2025 4:13 PM CDT): 3 prior back surgeries and still having a lot of pain. Decided against pursuing any more surgery. Has been to pain mgmt in [facility]. Continues to take gabapentin for neuropathic pain. Assessment & Plan (12/24/2024 2:28 PM ENVIRONMENTAL ENGINEERING INTERN): 3 prior back surgeries and still having a lot of pain. Decided against pursuing any more surgery. Has been to pain mgmt in [facility]. Continues to take gabapentin for neuropathic pain. Assessment & Plan (09/23/2024 1:05 PM ENVIRONMENTAL ENGINEERING INTERN): 3 prior back surgeries and still having a lot of pain. Decided against pursuing any more surgery. Has been to pain mgmt in [facility]. Continues to take gabapentin for neuropathic pain. Assessment & Plan (06/22/2024 3:21 PM CDT): 3 prior back surgeries and still having a lot of pain. Decided against pursuing any more surgery. Has been to pain mgmt in [facility]. Continues to take gabapentin for neuropathic pain. Assessment & Plan (03/16/2024 4:37 PM CDT): 3 prior back surgeries and still having a lot of pain. Decided against pursuing any more surgery. Has been to pain mgmt in [facility]. Continues to take gabapentin for neuropathic pain. [...] surgery. Has been to pain mgmt in [facility]. Continues to take gabapentin for neuropathic pain Assessment & Plan (07/28/2023 3:39 PM CDT): 3 prior back surgeries and still having a lot of pain. Decided against pursuing any more surgery. Has been to pain mgmt in [facility]. Continues to take gabapentin for neuropathic pain Assessment & Plan (05/27/2023 4:30 PM CDT): 3 prior back surgeries and still having a lot of pain. Thinking about going back to see nsg for opinion if there is anything else he can do. Has been to pain mgmt in [facility]. Continues to take gabapentin for neuropathic pain Assessment & Plan (11/12/2022 3:05 PM ENVIRONMENTAL ENGINEERING INTERN): 3 prior back surgeries and he does not want to have any additional surgery. Sees pain mgmt in [facility]. Discussed pain stimulator but he deferred for now. Continues to take gabapentin for neuropathic pain Assessment & Plan (01/04/2020 12:04 PM ENVIRONMENTAL ENGINEERING INTERN): No surgery planned. Continue to f/u with pcp and pain mgmt. Encouraged to continue water exercise. Declines PT. Discuss weight loss treatments with pcp. He used to be on duloxetine for mood and chronic pain and can't remember why he stopped. He would be willing to restart this now. Begin 30mg daily. Assessment & Plan (10/26/2019 2:16 PM ENVIRONMENTAL ENGINEERING INTERN): No surgery planned. Continue to f/u with [...] & Plan (08/21/2018 2:15 PM CDT): Saw logistics team lead who put him back on midodrine. Just [...] quantiferon 12/18 Neg hepatitis 12/18 utd , [id number], yearly flu shot. Had shingrix Had RSV vaccine Had original COVID vaccine series but not additional boosters Assessment & Plan (12/24/2024 12:50 PM ENVIRONMENTAL ENGINEERING INTERN): Neg quantiferon 12/18 Neg hepatitis 12/18 utd [id number], ncyjmiakm62, yearly flu shot. Had shingrix Had RSV vaccine Had original COVID vaccine series but not additional boosters Assessment & Plan (09/23/2024 1:19 PM ENVIRONMENTAL ENGINEERING INTERN): Neg quantiferon 12/18 Neg hepatitis 12/18 utd dajeltr41, ukozwejqz67, yearly flu shot. Had shingrix Had RSV vaccine Had original COVID vaccine series but not additional boosters Assessment & Plan (06/22/2024 1:27 PM CDT): Neg quantiferon 12/18 Neg hepatitis 12/18 utd [id number], aasyeqraq37, yearly flu shot. Recommend shingrix, COVID booster Assessment & Plan (03/16/2024 2:20 PM CDT): Neg quantiferon 12/18 Neg hepatitis 12/18 utd [id number], wnfyryobc44, yearly flu shot. Recommend shingrix, COVID booster Assessment & Plan (01/27/2024 1:06 PM CDT): Neg quantiferon 12/18 Neg hepatitis 12/18 utd efixrbu62, vvoiewmvk55, yearly flu shot. Recommend shingrix, COVID booster Assessment & Plan (10/28/2023 3:46 PM ENVIRONMENTAL ENGINEERING INTERN): Neg quantiferon 12/18 Neg hepatitis 12/18 utd illeoak12, nvhihjfha93, yearly flu shot. Recommend shingrix, COVID booster Assessment & Plan (07/28/2023 2:25 PM CDT): Neg quantiferon 12/18 Neg hepatitis 12/18 utd modclxz05, zrolvsqxw27, yearly flu shot. Recommend shingrix, COVID booster Assessment & Plan (05/27/2023 1:55 PM CDT): Neg quantiferon 12/18 Neg hepatitis 12/18 utd otkuook97, ralsaeuuz45, flu shot. Recommend shingrix, COVID boosters if not done Assessment & Plan (04/17/2023 4:33 PM CDT): Neg quantiferon 12/18 Neg hepatitis 12/18 utd onlljeu84, orrfjxzwh78, flu shot. Recommend shingrix, COVID boosters if not done Assessment & Plan (12/12/2022 3:06 PM ENVIRONMENTAL ENGINEERING INTERN): Neg quantiferon 12/18 Neg hepatitis 12/18 utd , shldiiqdz03, flu shot. Recommend shingrix, COVID boosters if not done Will advise Evusheld if he goes back on Rituxan in the future Assessment & Plan (11/12/2022 3:05 PM ENVIRONMENTAL ENGINEERING INTERN): Neg quantiferon 12/18 Neg hepatitis 12/18 utd kalixsu12, mxqjbfawx50, flu shot. Recommend shingrix, COVID boosters if not done Will advise Evusheld if he goes back on Rituxan in the future Assessment & Plan (01/04/2020 11:23 AM ENVIRONMENTAL ENGINEERING INTERN): Neg quantiferon 12/18 Neg hepatitis 12/18 utd mthlvia95, komzniwte82, flu shot. Recommend shingrix Assessment & Plan (10/26/2019 11:19 AM ENVIRONMENTAL ENGINEERING INTERN): Neg quantiferon 12/18 Neg hepatitis 12/18 utd hgyupdk66, totrnbhtw96, flu shot. 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 Symptoms currently improved. logistics team lead Dr. Young. Requested lipid panel so will [...] Overview (02/21/2017): Seasonal allergies Rheumatoid arthritis of [facility] sites with negative rheumatoid factor 05/06/2011 Overview [...] needed Assessment & Plan (12/24/2024 2:28 PM ENVIRONMENTAL ENGINEERING INTERN): cdai = 33, high Was not seen [...] needed Assessment & Plan (09/23/2024 2:48 PM ENVIRONMENTAL ENGINEERING INTERN): cdai = 17, moderate Was not seen [...] weeks Assessment & Plan (10/28/2023 3:45 PM ENVIRONMENTAL ENGINEERING INTERN): cdai = 10, low, improving Was not [...] month Assessment & Plan (12/12/2022 3:05 PM ENVIRONMENTAL ENGINEERING INTERN): cdai = 27, high Last seen in [...] month Assessment & Plan (11/12/2022 3:10 PM ENVIRONMENTAL ENGINEERING INTERN): cdai = 32, high Last seen in [...] month Assessment & Plan (01/04/2020 11:21 AM ENVIRONMENTAL ENGINEERING INTERN): cdai = 26, high Pt received first [...] months Assessment & Plan (10/26/2019 2:17 PM ENVIRONMENTAL ENGINEERING INTERN): cdai = 30 Pt received first Rituxan [...] today. Assessment & Plan (12/24/2018 9:58 PM ENVIRONMENTAL ENGINEERING INTERN): cdai = 13, low-moderate Pt received first [...] doing. Assessment & Plan (10/26/2018 9:41 AM ENVIRONMENTAL ENGINEERING INTERN): High cdai. Patient has been having more [...] on file Legal Sex Male 3:50 PM ENVIRONMENTAL ENGINEERING INTERN Gender Identity Not on file Sexual [...] home safety. Medical Devices Implanted Type Area Chimney Supervisor Brick Device Identifier Shelf Expiration Date Model / Serial / Lot Stents Heart Description:cardiac stents Hardware Spine Lumbar Description:lumbar hardware Procedures Procedure Name Priority Date/Time Associated Diagnosis Comments COMPREHENSIVE METABOLIC PANEL Routine 12/24/2024 1:20 PM ENVIRONMENTAL ENGINEERING INTERN 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 factor (HCC) High risk medications (not anticoagulants) long-term use LIPID PANEL Routine 01/04/2020 11:48 AM ENVIRONMENTAL ENGINEERING INTERN HEPATITIS PANEL, ACUTE Routine 8 11:17 AM ENVIRONMENTAL ENGINEERING INTERN HEMOGLOBIN A1C Routine 08/05/2014 3:33 PM CDT from Last 3 Months or Most Recently Relevant to Health Maintenance Results * (ABNORMAL) Comprehensive metabolic panel (12/24/2024 1:20 PM ENVIRONMENTAL ENGINEERING INTERN) Pathologist [facility] Glucose 96 65 - 99 mg/dL [facility] [...] [facility] Blood 12/24/2024 1:20 PM ENVIRONMENTAL ENGINEERING INTERN 12/24/2024 1:21 PM ENVIRONMENTAL ENGINEERING INTERN [address] LAB BLOOD ORDERABLES Fin al Result [facility] [address] [id number] * (ABNORMAL) Lipid panel (01/04/2020 11:48 AM ENVIRONMENTAL ENGINEERING INTERN) Cholesterol 155 <200 mg/dL [facility] [place] HDL 50 > OR = 40 mg/dL [facility] [place] Triglycerides 355(H) <150 mg/dL [facility] [place] Comment: If a non-fasting specimen was collected, consider repeat triglyceride testing on a fasting specimen if clinically indicated. Darshan et al. J. of Clin. Lipidol. 2015;9:129-169. LDL 62 mg/dL (calc) [facility] [place] Comment: Reference [...] LDL-C. Girma SS et al. GINA. 2013;310(19): 2377-8902 (http://education.[employer].Clan of the Cloud/faq/DLH875) Chol/HDL ratio 3.1 <5.0 (calc) [facility] [place] Non-HDL, (LDL+VLDL) 105 <130 mg/dL (calc) [facility] [place] Comment: For patients with diabetes plus 1 major ASCVD risk factor, treating to a non-HDL-C goal of <100 mg/dL (LDL-C of <70 mg/dL) is considered a therapeutic option. 01/04/2020 11:4 8 AM ENVIRONMENTAL ENGINEERING INTERN 01/04/2020 11:49 AM ENVIRONMENTAL ENGINEERING INTERN Narrative Resulting Agency Comment Performing Organization Information: Site ID: [id number] Name: Marian[facility] Pinedo Address: [address] [phone] Director: Angie Vaca D.O., MPH us [address] LAB BLOOD ORDERABLES Fin al Result Performing Organization Address [facility] Co de Phone Number [facility] [place], [place] * Hepatitis panel, acute (11/03/2018 11:17 AM ENVIRONMENTAL ENGINEERING INTERN) Hep A IgM NON-REACTI VE NON-REACTI VE [facility] [place] HepBsAg NON-REACTI VE NON-REACTI VE [facility] [place] Hep B core IgM NON-REACTI VE NON-REACTI VE [facility] [place] Hep C Ab NON-REACTI VE NON-REACTI VE [facility] [place] SIGNAL TO CUT-OFF 0.02 <1.00 [facility] [place] 11/03/2018 11:1 7 AM ENVIRONMENTAL ENGINEERING INTERN 11/03/2018 11:18 AM ENVIRONMENTAL ENGINEERING INTERN Narrative Resulting Agency Comment Performing Organization Information: Site ID: [id number] Name: [facility] Address: [address] [place] [id number] Director: Angie Vaca D.O. MPH us Master Henley III, MD LAB MICROBIOLOGY - GENERAL ORDERABLES Final Result Performing Organization Address [facility] de Phone Number [facility] [place], [place] * (ABNORMAL) Hemoglobin A1c (08/05/2014 3:33 [...] of diabetes for children. Test performed at [facility] [place] [place] [address] Director: ANGIE VACA DO,MPH 08/05/2014 3:[address] LAB BLOOD ORDERABLES Fin al Result [facility] HISTORICAL RESULTS from Last 3 Months or Most Recently Relevant to Health Maintenance Insurance MEDICARE MEDICARE FOR[facility]LY [facility] MEDICARE FOR[facility]LY [facility] Care Teams Motor Boss Relationship Specialty Start Date End Date Eric Pretty MD [address] [place] [address] PCP - General Internal Medicine 01/28/18 Dominic Young MD [address] [facility] [address] [place] [id number] Consulting Physician Cardiology 01/04/20 Carlos Hernandez MD [address] [facility] [address] Consulting Physician Rheumatology 01/27/24
--- OUTSIDE RECORDS SUMMARY | 2025-06-11 11:42 | XMS_ITS | Clinical Summary ---
Author Organization [facility] Address [address] [place] [address] Care Team Providers Care Patcher Wood Welder Name Role Phone Eric Pretty MD Primary Care Provider [phone] Social History Tobacco Use Types Packs/Day Years Used Date Smoking Tobacco: Never Assessed Sex and Gender Information Value Date Recorded Sex Assigned at Not on file Legal Sex Male 8:39 AM IT SECURITY CONSULTANT Gender Identity Not on file Sexual [...] age to complete this topic Insurance MEDICARE [facility] Care Teams Patcher Wood Welder Relationship Specialty Start Date End Date Eric Pretty MD [address] - [facility] [address] [place] [address] PCP - General INTERNAL MEDICINE 11/15/19
--- OUTSIDE RECORDS SUMMARY | 2025-06-11 11:42 | XMS_ITS | Clinical Summary ---
Author Organization [facility] [address] Address [address] [place] [address] Care Team Providers Care Real Estate Sales Agent Name Role Phone Eric Pretty MD Primary Care Provider [phone] Dominic Young MD Unavailable [phone] Carlos Hernandez MD Unavailable [phone] Allergies Active Allergy Reactions Criticality Noted [...] occurs. Assessment & Plan (12/24/2024 12:49 PM LANG PATH THERAPIST): BMD 06/09/24: LFN 0.761, tscore -1.2 Total [...] occurs. Assessment & Plan (09/23/2024 2:49 PM LANG PATH THERAPIST): BMD 06/09/24: LFN 0.761, tscore -1.2 Total [...] candidate Assessment & Plan (09/23/2024 1:14 PM LANG PATH THERAPIST): Xrays 2016: Moderate osteoarthritis of the acromioclavicular [...] walks. Assessment & Plan (12/12/2022 3:07 PM LANG PATH THERAPIST): R shoulder hurting for the past 2-3 days. May have been triggered by carrying in grocery bags. Hx rotator cuff tears per pt's report. Recommend heat/ice, rest. Will order PT. Consider seeing ortho if not improving Atherosclerotic cardiovascular disease Assessment & Plan (11/12/2022 3:08 PM LANG PATH THERAPIST): S/p multiple MIs/cardiac arrest, sick sinus, CHF. Has pacemaker. 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 On eliquis and clopidogrel History of DVT of lower extremity 11/12/2022 History of prostate cancer 11/12/2022 Overview (11/12/2022): Treated with radiation in 2017 Chronic pain syndrome 12/16/2021 Type 2 diabetes mellitus wit h diabetic neuropathy, unspecified 11/17/2020 Chronic pain of right knee 06/08/2019 Assessment & Plan (09/23/2024 1:05 PM LANG PATH THERAPIST): Mild OA on xray from 06/04. Had [...] benefit. Assessment & Plan (01/04/2020 12:03 PM LANG PATH THERAPIST): Mild OA on xray from 06/04. Had cortisone shots years ago but they spiked his sugars. Had zilretta on 10/29/19 as this formulation causes less systemic steroid effect than regular triamcinolone injection. However, he reported no benefit. Assessment & Plan (10/26/2019 2:15 PM LANG PATH THERAPIST): Mild OA on xray from 06/04. Had [...] mgmt: [facility] ([facility]) in [facility] Assessment & Plan (04/01/2025 4:13 PM CDT): 3 prior back surgeries and still having a lot of pain. Decided against pursuing any more surgery. Has been to pain mgmt in [facility]. Continues to take gabapentin for neuropathic pain. Assessment & Plan (12/24/2024 2:28 PM LANG PATH THERAPIST): 3 prior back surgeries and still having a lot of pain. Decided against pursuing any more surgery. Has been to pain mgmt in [facility]. Continues to take gabapentin for neuropathic pain. Assessment & Plan (09/23/2024 1:05 PM LANG PATH THERAPIST): 3 prior back surgeries and still having a lot of pain. Decided against pursuing any more surgery. Has been to pain mgmt in [facility]. Continues to take gabapentin for neuropathic pain. Assessment & Plan (06/22/2024 3:21 PM CDT): 3 prior back surgeries and still having a lot of pain. Decided against pursuing any more surgery. Has been to pain mgmt in [facility]. Continues to take gabapentin for neuropathic pain. Assessment & Plan (03/16/2024 4:37 PM CDT): 3 prior back surgeries and still having a lot of pain. Decided against pursuing any more surgery. Has been to pain mgmt in [facility]. Continues to take gabapentin for neuropathic [...] surgery. Has been to pain mgmt in [facility]. Continues to take gabapentin for neuropathic pain Assessment & Plan (07/28/2023 3:39 PM CDT): 3 prior back surgeries and still having a lot of pain. Decided against pursuing any more surgery. Has been to pain mgmt in [facility]. Continues to take gabapentin for neuropathic pain Assessment & Plan (05/27/2023 4:30 PM CDT): 3 prior back surgeries and still having a lot of pain. Thinking about going back to see nsg for opinion if there is anything else he can do. Has been to pain mgmt in [facility]. Continues to take gabapentin for neuropathic pain Assessment & Plan (11/12/2022 3:05 PM LANG PATH THERAPIST): 3 prior back surgeries and he does not want to have any additional surgery. Sees pain mgmt in [facility]. Discussed pain stimulator but he deferred for now. Continues to take gabapentin for neuropathic pain Assessment & Plan (01/04/2020 12:04 PM LANG PATH THERAPIST): No surgery planned. Continue to f/u with pcp and pain mgmt. Encouraged to continue water exercise. Declines PT. Discuss weight loss treatments with pcp. He used to be on duloxetine for mood and chronic pain and can't remember why he stopped. He would be willing to restart this now. Begin 30mg daily. Assessment & Plan (10/26/2019 2:16 PM LANG PATH THERAPIST): No surgery planned. Continue to f/u with [...] & Plan (08/21/2018 2:15 PM CDT): Saw nursing executive who put him back on midodrine. Just [...] quantiferon 12/18 Neg hepatitis 12/18 utd , [id number], yearly flu shot. Had shingrix Had RSV vaccine Had original COVID vaccine series but not additional boosters Assessment & Plan (12/24/2024 12:50 PM LANG PATH THERAPIST): Neg quantiferon 12/18 Neg hepatitis 12/18 utd [id number], [id number], yearly flu shot. Had shingrix Had RSV vaccine Had original COVID vaccine series but not additional boosters Assessment & Plan (09/23/2024 1:19 PM LANG PATH THERAPIST): Neg quantiferon 12/18 Neg hepatitis 12/18 utd [id number], [id number], yearly flu shot. Had shingrix Had RSV vaccine Had original COVID vaccine series but not additional boosters Assessment & Plan (06/22/2024 1:27 PM CDT): Neg quantiferon 12/18 Neg hepatitis 12/18 utd [id number], [id number], yearly flu shot. Recommend shingrix, COVID booster Assessment & Plan (03/16/2024 2:20 PM CDT): Neg quantiferon 12/18 Neg hepatitis 12/18 utd , [id number], yearly flu shot. Recommend shingrix, COVID booster Assessment & Plan (01/27/2024 1:06 PM CDT): Neg quantiferon 12/18 Neg hepatitis 12/18 utd [id number], [id number], yearly flu shot. Recommend shingrix, COVID booster Assessment & Plan (10/28/2023 3:46 PM LANG PATH THERAPIST): Neg quantiferon 12/18 Neg hepatitis 12/18 utd [id number], [id number], yearly flu shot. Recommend shingrix, COVID booster Assessment & Plan (07/28/2023 2:25 PM CDT): Neg quantiferon 12/18 Neg hepatitis 12/18 utd [id number], [id number], yearly flu shot. Recommend shingrix, COVID booster Assessment & Plan (05/27/2023 1:55 PM CDT): Neg quantiferon 12/18 Neg hepatitis 12/18 utd [id number], dhovowalf46, flu shot. Recommend shingrix, COVID boosters if not done Assessment & Plan (04/17/2023 4:33 PM CDT): Neg quantiferon 12/18 Neg hepatitis 12/18 utd , [id number], flu shot. Recommend shingrix, COVID boosters if not done Assessment & Plan (12/12/2022 3:06 PM LANG PATH THERAPIST): Neg quantiferon 12/18 Neg hepatitis 12/18 utd [id number], [id number], flu shot. Recommend shingrix, COVID boosters if not done Will advise Evusheld if he goes back on Rituxan in the future Assessment & Plan (11/12/2022 3:05 PM LANG PATH THERAPIST): Neg quantiferon 12/18 Neg hepatitis 12/18 utd [id number], [id number], flu shot. Recommend shingrix, COVID boosters if not done Will advise Evusheld if he goes back on Rituxan in the future Assessment & Plan (01/04/2020 11:23 AM LANG PATH THERAPIST): Neg quantiferon 12/18 Neg hepatitis 12/18 utd [id number], [id number], flu shot. Recommend shingrix Assessment & Plan (10/26/2019 11:19 AM LANG PATH THERAPIST): Neg quantiferon 12/18 Neg hepatitis 12/18 utd accciky34, , flu shot. Recommend shingrix Assessment & Plan (08/10/2019 11:37 AM CDT): Neg quantiferon 12/18 Neg hepatitis 18 Assessment & Plan (06/08/2019 12:09 PM CDT): Neg quantiferon 12/18 Neg hepatitis 12/18 Assessment & Plan (03/26/2019 8:13 AM CDT): Neg quantiferon 12/18 Neg hepatitis 1218 Assessment & Plan (12/24/2018 9:59 PM LANG PATH THERAPIST): Neg quantiferon / Neg hepatitis 11/03 Syncope and collapse 08/28/2017 Orthostasis 08/28/2017 Coronary artery disease invo lving [place] coronary artery of [place] heart with angina pectoris 08/28/2017 Assessment & Plan (01/04/2020 12:04 PM LANG PATH THERAPIST): Pt had abnormal stress test followed by cardiac cath, stenting. Symptoms currently improved. nursing executive Dr. Young. Requested lipid panel so will [...] Seasonal allergies Rheumatoid arthritis of [facility] sites with negative rheumatoid factor 05/06/2011 Overview [...] needed Assessment & Plan (12/24/2024 2:28 PM LANG PATH THERAPIST): cdai = 33, high Was not seen [...] needed Assessment & Plan (09/23/2024 2:48 PM LANG PATH THERAPIST): cdai = 17, moderate Was not seen [...] weeks Assessment & Plan (10/28/2023 3:45 PM LANG PATH THERAPIST): cdai = 10, low, improving Was not [...] month Assessment & Plan (12/12/2022 3:05 PM LANG PATH THERAPIST): cdai = 27, high Last seen in [...] month Assessment & Plan (11/12/2022 3:10 PM LANG PATH THERAPIST): cdai = 32, high Last seen in [...] month Assessment & Plan (01/04/2020 11:21 AM LANG PATH THERAPIST): cdai = 26, high Pt received first [...] months Assessment & Plan (10/26/2019 2:17 PM LANG PATH THERAPIST): cdai = 30 Pt received first Rituxan [...] today. Assessment & Plan (12/24/2018 9:58 PM LANG PATH THERAPIST): cdai = 13, low-moderate Pt received first [...] doing. Assessment & Plan (10/26/2018 9:41 AM LANG PATH THERAPIST): High cdai. Patient has been having more [...] Type Department Care Team Description 04/08/2025 Telephone [facility] [address] [place] [phone] Natacha Henley 04/01/2025 1:15 PM CDT Office Visit [facility] [address] [place] [phone] Olga Bueno PA 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 factor (HCC) (Primary Dx); High risk medications (not anticoagulants) long-term use; Osteoarthritis of spine with radiculopathy, lumbar region; Age-related osteoporosis without current pathological fracture; Chronic systolic (congestive) heart failure (HCC) 04/01/2025 Telephone [facility] [address] [place] [phone] Olga Goodson Please schedule next Reclast. [...] 01/24/2016 - Hypertension Hypertension Hyperlipidemia Hyperlipidemia; Comments: [facility] 01/24/2016 - Gastroesophageal reflux disease GERD Depression Depression Rheumatoid arthritis ([facility]) Rheum atoid arthritis; Comments: [facility] 01/24/2016 - Anxiety disorder Anxiety Diabetic neuropathy ([facility]) Diabet ic neuropathy; Comments: [facility] 01/24/2016 - Benign prostatic hyperplasia BPH - Benign prostatic hypertrophy; Comments: [facility] 01/24/2016 - History of spinal surgery H/O Sp inal surgery; Comments: [facility] 01/24/2016 - Cancer ([facility]) Obesity Family History Medical History Relation Name [...] on file Legal Sex Male 3:50 PM LANG PATH THERAPIST Gender Identity Not on file Sexual [...] on stairs Contact your local community or [facility] for information on exercise, fall prevention programs, or options for improving home safety. Medical Devices Implanted Type Area Hand Flesher Device Identifier Shelf Expiration Date Model / Serial / Lot Stents Heart Description:cardiac stents Hardware Spine Lumbar Description:lumbar hardware Procedures Procedure Name Priority Date/Time Associated Diagnosis Comments COMPREHENSIVE METABOLIC PANEL Routine 12/24/2024 1:20 PM LANG PATH THERAPIST 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 factor (HCC) High risk medications (not anticoagulants) long-term use LIPID PANEL Routine 01/04/2020 11:48 AM LANG PATH THERAPIST HEPATITIS PANEL, ACUTE Routine 8 11:17 AM LANG PATH THERAPIST HEMOGLOBIN A1C Routine 08/05/2014 3:33 PM CDT from Last 3 Months or Most Recently Relevant to Health Maintenance Results * (ABNORMAL) Comprehensive metabolic panel (12/24/2024 1:20 PM LANG PATH THERAPIST) Pathologist [facility] Glucose 96 65 - 99 mg/dL [facility] [...] [facility] Blood 12/24/2024 1:20 PM LANG PATH THERAPIST 12/24/2024 1:21 PM LANG PATH THERAPIST us [address] LAB BLOOD ORDERABLES Fin al Result [facility] [address] [place] [address] * (ABNORMAL) Lipid panel (01/04/2020 11:48 AM LANG PATH THERAPIST) Cholesterol 155 <200 mg/dL [facility] [place] HDL 50 > OR = 40 mg/dL [facility] [place] Triglycerides 355(H) <150 mg/dL [facility] [place] Comment: If a non-fasting specimen was collected, consider repeat triglyceride testing on a fasting specimen if clinically indicated. Darshan et al. J. of Clin. Lipidol. 2015;9:129-169. LDL 62 mg/dL (calc) [facility] [place] Comment: Reference range: <100 Desirable range <100 mg/dL for primary prevention; <70 mg/dL for patients with CHD or diabetic patients with > or = 2 CHD risk factors. LDL-C is now calculated using the Girma-Rachel calculation, which is a validated novel method providing better accuracy than the Friedewald equation in the estimation of LDL-C. Girma YING et al. GINA. 2013;310(19): 6776-0998 (http://education.[employer]/faq/LSI488) Chol/HDL ratio 3.1 <5.0 (calc) [facility] [place] Non-HDL, (LDL+VLDL) 105 <130 mg/dL (calc) [facility] [place] Comment: For patients with diabetes plus 1 major ASCVD risk factor, treating to a non-HDL-C goal of <100 mg/dL (LDL-C of <70 mg/dL) is considered a therapeutic option. 01/04/2020 11:4 8 AM LANG PATH THERAPIST 01/04/2020 11:49 AM LANG PATH THERAPIST Narrative Resulting Agency Comment Performing Organization Information: Site ID: [id number] Name: Mariann Pinedo Address: [address] [place], [place] [address]ner [facility] [place] [address] Director: Angie Vaca D.O. MPH [address] LAB BLOOD ORDERABLES Fin al Result Performing Organization Address [facility] Co de Phone Number [facility] [place] * Hepatitis panel, acute (11/03/2018 11:17 AM LANG PATH THERAPIST) Hep A IgM NON-REACTI VE NON-REACTI VE [facility] HepBsAg NON-REACTI VE NON-REACTI VE [facility] Hep B core IgM NON-REACTI VE NON-REACTI VE [facility] Hep C Ab NON-REACTI VE NON-REACTI VE [facility] [place] SIGNAL TO CUT-OFF 0.02 <1.00 [facility] 11/03/2018 11:1 7 AM LANG PATH THERAPIST 11/03/2018 11:18 AM LANG PATH THERAPIST Narrative Resulting Agency Comment Performing Organization Information: Site ID: [id number] Name: Mariann Pinedo Address: [address] [place] [address] [place] [address] Director: Angie Vaca D.O. MPH Master Henley III, MD LAB MICROBIOLOGY - GENERAL ORDERABLES Final Result Performing Organization Address [facility] Co de Phone Number [facility] [place] * (ABNORMAL) Hemoglobin A1c (08/05/2014 3:33 PM [...] of diabetes for children. Test performed at [facility] [address] [place] [address] Director: ANGIE VACA DO,MPH 08/05/2014 3:[address] LAB BLOOD ORDERABLES Fin al Result [facility] RESULTS from Last 3 Months or Most Recently Relevant to Health Maintenance Insurance MEDICARE MEDICARE [facility] MEDICARE [facility] Care Teams Real Estate Sales Agent Relationship Specialty Start Date End Date Eric Pretty MD [address] [place] [address] PCP - General Internal Medicine 01/28/18 Dominic Young MD [address] [facility] [address] [place] [address] Consulting Physician Cardiology 01/04/20 Carlos Hernandez MD [address] [place] [address] Consulting Physician Rheumatology 01/27/24
--- OUTSIDE RECORDS SUMMARY | 2025-06-11 11:43 | XMS_ITS | Clinical Summary ---
Author Organization [facility] Address [address] [place] [address] Care Team Providers Care Sewer Pipe Layer Helper Name Role Phone Eric Pretty MD [...] mg) by mouth daily. 90 Tablet Active HumuLIN-R U-500, Conc, Kwikpen 500 unit/mL (3 mL) pen INJECT 100 UNITS SUBCUTANEOUSLY BEFORE BREAKFAST, AND 35 UNITS BEFORE DINNER. Active Additional Information Patient not taking.Reported on 06/09/2025 fesoterodine SR 24 hour (TOVIAZ) 8 mg [...] Active Additional Information Patient not taking.Reported on 06/09/2025 methotrexate (RHEUMATREX) 2.5 mg Tablet Take 4 x 2.5 mg tabs in the AM and PM once weekly on Friday Active sacubitriL-hilda sartan (ENTRESTO) 24-26 mg Tablet Take 1 Tablet by mouth 2 times daily. Active Additional Information Patient not taking.Reported on 06/09/2025 tiZANidine (ZANAFLEX) 2 mg Tablet Take 1 Tablet (2 mg) by mouth every 8 hours as needed for Spasm (back pain). Active Additional Information Patient not taking.Reported on 06/09/2025 QUEtiapine (SEROquel) 25 mg tablet Take 1 Tablet (25 mg) by mouth daily after supper. Active Additional Information Patient not taking.Reported on 06/09/2025 QUEtiapine (SEROquel) 25 mg tablet Take 1 Tablet (25 mg) by mouth 2 times daily as needed for Other (See Comment) (restlessness, agitation). Active Additional Information Patient not taking.Reported on 06/09/2025 polyethylene glycol (MIRALAX) 17 gram Powder in Packet Take 1 Packet (17 Grams) by mouth 1 time daily as needed for Constipation. Active Additional Information Patient not taking.Reported on 06/09/2025 mirtazapine (REMERON) 15 mg tablet Take 1 Tablet (15 mg) by mouth daily at bedtime. Active Additional Information Patient not taking.Reported on 06/09/2025 insulin lispro (HumaLOG,ADMEL OG) 100 unit/mL pen [...] Active Additional Information Patient not taking.Reported on 06/09/2025 HYDROcodone-ac etaminophen (NORCO) 5-325 mg tabletIndicati ons:Rheumatoid arthritis, involving unspecified site, unspecified whether rheumatoid factor present ([facility]) Take 1 Tablet by mouth every 6 hours as needed for Pain. Max Daily Amount: 4 Tablets 20 Tablet Active atorvastatin (LIPITOR) 40 mg tablet Take 1 Tablet (40 mg) by mouth daily. 90 Tablet 1 Active sertraline (ZOLOFT) 100 mg tablet Active busPIRone (BUSPAR) 10 mg tablet Active spironolactone (ALDACTONE) 25 mg tablet Take 0.5 Tablets (12.5 mg) by mouth daily. 45 Tablet 1 Active atorvastatin (LIPITOR) 40 mg [...] from the original. Dr. Dominic Young - Appliance Adjuster () Problem Noted Date Diagnosed Date Diabetes [...] (12/12/2021): Added automatically from request for surgery [id number] Generalized muscle weakness 01/22/2021 05/30/2021 Severe obesity [...] Neg quantiferon 11/03 Neg hepatitis 11/03 utd [id number], [id number], flu shot. Recommend shingrix Hyperlipidemia associated wi th type 2 diabetes mellitus 08/28/2017 05/10/2025 Hypotension 08/28/2017 05/10/2025 Overview (05/30/2021): Last Assessment & Plan: Saw cardiology nurse who put him back on midodrine. Just started this today. Had episode of lightheadedness coming into the office today, better with sitting. Also describes vertigo sometimes and I suggested this might represent a different problem, discuss with pcp. Syncope and collapse 08/28/2017 025 Coronary artery disease invo lving red devil coronary artery of red devil heart with angina pectoris 08/28/2017 05/10/2025 Overview (05/30/2021): Last Assessment & Plan: Pt had abnormal stress test followed by cardiac cath, stenting. Symptoms currently improved. cardiology nurse Dr. Young. Requested lipid panel so will [...] Encounters Date Type Department Care Team Description 06/09/2025 12:30 PM CDT Office Visit [facility] Heart and Vascular At [address] [place] [address] Dominic Young MD Chronic HFrEF (heart failure with reduced ejection fraction) (CMS/HCC) (Primary Dx); Mixed hyperlipidemia; Paroxysmal atrial fibrillation with RVR (CMS/HCC); Cardiac pacemaker in situ; Coronary artery disease involving red devil coronary artery of red devil heart without angina pectoris 06/08/2025 Telephone [facility] Heart and Vascular At [address] [place] [address] Dominic Young MD needs appt 06/06/2025 Telephone [facility] EP AT [address] [place] [address] Cuauhtemoc Saez DNP Medication Refill 06/03/2025 Refill [facility] AT [address] [place] [address] Cuauhtemoc Saez DNP 06/03/2025 Telephone [facility] AT [address] [place] [address] Cuauhtemoc Saez DNP Lab Results 06/03/2025 Orders Only [facility] AT [address] [place] [address] Casie Dietz RN 06/02/2025 Results Follow-Up [facility] AT [address] [place] [address] Casie Dietz RN BASIC METABOLIC PANEL 05/31/2025 2:15 PM CDT Office Visit [facility] AT [address] [place] [address] Cuauhtemoc Saez DNP Atrial flutter with rapid ventricular response (CMS/HCC) (Primary Dx); Longstanding persistent atrial fibrillation (CMS/HCC); Hx of atrioventricular node ablation; 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; custodial (current) use of anticoagulants; Mixed hyperlipidemia; Benign hypertension 05/25/2025 Telephone [facility] AT [address] [place] [address] Cuauhtemoc Saez DNP Medication Concerns 05/24/2025 Telephone [facility] AT [address] [place] [address] Alethea Huffman, BRANCH MANAGER TRAINEE Edema 05/07/2025 2:55 PM CDT - 05/18/2025 3:07 PM CDT Hospital Encounter [facility] Trauma and Surgery [address] [place] [address] Minal Villegas MD Hassan, MD Rosa Isela Cruz, MD Esau Noble Gayathri, MD Austin, Karen, MD Acute metabolic encephalopathy Discharge Disposition: Care Home Fac(SNF) with Medicare Certification in Anticipation of Skilled Care 05/07/2025 Travel 05/04/2025 3:08 AM CDT - 05/06/2025 3:40 PM CDT Hospital Encounter [facility] Neuroscience [address] [place] [address] Akosua Bourgeois MD Counts, Ivette Kelley MD Acute metabolic encephalopathy Discharge Disposition: Rehab Facility IP 05/02/2025 Telephone [facility] EP AT [address] [place] [phone] Elver Bazzi NP Medication Question 04/18/2025 2:30 PM CDT Procedure visit [facility] AT [address] [place] [phone] NICM (nonischemic cardiomyopathy) (CMS/HCC) (Primary Dx); Encounter for implantable defibrillator reprogramming or check 04/18/2025 Telephone [facility] AT [address] [place] [phone] Tani Patel MD Pacemaker issues 04/15/2025 9:00 AM CDT Office Visit [facility] AT [address] [place] [address] Akanksha Cueva NP NICM (nonischemic cardiomyopathy) (CMS/HCC) (Primary Dx); 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; Longstanding persistent atrial fibrillation (CMS/HCC); Mixed hyperlipidemia 04/15/2025 8:30 AM CDT Procedure visit [facility] AT [address] [place] [address] NICM (nonischemic cardiomyopathy) (CMS/HCC) (Primary Dx); 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; Longstanding persistent atrial fibrillation (CMS/HCC) 04/15/2025 Telephone [facility] EP AT [address] [place] [phone] Tani Patel MD Symptoms 04/15/2025 Telephone [facility] Heart and Vascular At [address] [place] [address] Akanksha Cueva NP Fatigue; Low Blood Pressure 04/05/2025 1:00 PM CDT Office Visit [facility] Heart and Vascular At [address] [place] [address] Erica Vizcarra NP Coronary artery disease involving red devil coronary artery of red devil heart without angina pectoris (Primary Dx); Benign hypertension; Paroxysmal atrial fibrillation with RVR (CMS/HCC) 03/31/2025 Results Follow-Up [facility] Heart and Vascular At [address] [place] [address] Yareli Kelsey RN BASIC METABOLIC PANEL, CBC WITH DIFFERENTIAL, BASIC METABOLIC PANEL 03/24/2025 10:30 AM CDT Office Visit [facility] Heart and Vascular At [address] [place] [address] Erica Vizcarra NP Chronic HFrEF (heart failure with reduced ejection fraction) (CMS/HCC) (Primary Dx); Coronary artery disease involving red devil coronary artery of red devil heart without angina pectoris; Mixed hyperlipidemia 03/17/2025 10:13 AM CDT - 03/19/2025 3:56 PM CDT Hospital Encounter [facility] [address] [place] [phone] Robert, Aravind, Prem Cramer MD Khan, Mafaza, MD Fall Discharge Disposition: Home Health Care Svc 03/17/2025 10:00 AM CDT Procedure visit [facility] Heart [facility] Vascular At [address] [place] [address] Cardiac pacemaker in situ (Primary Dx) 03/17/2025 9:30 AM CDT Procedure visit [facility] AT [address] [place] [address] 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 Gender Identity Not on file Sexual Orientation Not on file Last Filed Vital Signs Vital Sign Reading Time Taken Comments Blood Pressure 110/78 06/09/2025 11:58 AM CDT Pulse 80 06/09/2025 11:58 AM CDT Temperature 36.4 C (97.5 F) 05/18/2025 12:05 PM CDT Respiratory Rate 18 05/18/2025 12:05 PM CDT Oxygen Saturation 96% 06/09/2025 11:58 AM CDT Inhaled Oxygen Concentration - - Weight 120.2 kg (265 lb) 06/09/2025 11:58 AM CDT Height 180.3 cm (5' 11) 06/09/2025 11:58 AM CDT Body Mass Index 36.96 06/09/2025 11:58 AM CDT Plan of Treatment Upcoming Encounters Date Type Department Care Team (Late st Contact Info) Description 07/11/2025 4:15 PM CDT Telephone Check Up [facility] Heart and Vascular At [address] [place] [phone] Dominic Young MD [address] [place] [address] [address] [place] [address] 07/20/2025 8:00 AM CDT Procedure visit [facility] EP AT [address] [place] [address] 07/26/2025 2:00 PM CDT Office Visit [facility] EP AT [address] [place] [phone] Cuauhtemoc Saez DNP [address] [place] [address] [address] [place] [address] 08/08/2025 12:00 PM CDT Office Visit [facility] Heart and Vascular At [address] [place] [address] Dominic Young MD [address] [place] [address] [address] [place] [address] Health Maintenance Due Date Last [...] years Discontinued Medical Devices Implanted Type Area Deputy Treasurer Device Identifier Shelf Expiration Date Model / Serial / Lot Sealant Duraseal 5ml - [id number] Implanted:Qty: 1 on 01/02/2021 by Jarvis Martell MD at [facility] Biological Spine Lumbar [employer] LULA 02/14/2022-2049 / / [id number] Eit T/Plif, H 13mm, 4' , 12/08 Implanted:Qty: 1 on 01/02/2021 by Jarvis Martell MD at [facility] Cage Spine Lumbar J&J- DEPU[employer] INC 08/16/2024 [id number] / / [id number] Description:All Depuy spinal hardware was processed on requisition, 825632. Hemostatic Surgiflo 8ml W/Thrombin 2994 - [id number] Implanted:Qty: 1 on 01/02/2021 by Jarvis Martell MD at [facility] Hemostatic Spine Lumbar J&J- ETHICON INC 11/16/2021 2994 / / [id number] Hemostat Gaby Surg Mph Pwd 3gm [id number] - [id number] Implanted:Qty: 1 on 12/14/2021 by Aki Mccray MD at [facility] Hemostatic Left: Chest CR BARD- DAVOL INC 05/14/2026 [id number] / / [id number] Hemostat Gaby Ah Powder 3gm [id number] - [id number] Implanted:Qty: 1 on 03/11/2025 by Chivo Moreland MD at [facility] Hemostatic Left: Chest BARD DAVOL [id number] 09/13/2029 [id number] / / [id number] Lead Pcmkr Tendril St Optm 2087tc-52 - [id number] Implanted:Qty: 1 on 12/14/2021 by Aki Mccray MD at [facility] Lead N/A: Heart [employer] 11/16/20242087TC-52 / [id number] / Lead Pcmkr Tendril St Optm -58 - [id number] Implanted:Qty: 1 on 12/14/2021 by Aki Mccray MD at [facility] Lead N/A: Heart [employer] 07/17/2024 2088TC/58 / [id number] / Lead Quartet Lt Quad 86cm 1458q-86 - [id number] Implanted:Qty: 1 on 03/11/2025 by Chivo Moreland MD at [facility] Lead N/A: Heart [employer] [id number] 11/16/2027 1458Q/86 / [id number] / Rene Xpdm Crv W/Line 95mm - Ssterilized 12/20/2020 Implanted:Qty: 1 on 01/02/2021 by Jarvis Martell MD at [facility] Rene Spine Lumbar J&J- [employer] 5 / STERILIZED 12/20/2020 / LOAD 110 Rene Xpdm Crv W/Line 85mm - Ssterilized 12/20/2020 Implanted:Qty: 1 on 01/02/2021 by Jarvis Martell MD at [facility] Rene Spine Lumbar J&J- [employer] 5 / STERILIZED 12/20/2020 / LOAD 110 Log [id number] - Depuy Expedium 5.5 Spine Tray - 1 - Screw Exp Poly 6x40mm Implanted:Qty: 2 on 05/06/2011 at [facility] Screw J&J- [employer]PU[employer] INC 0 / / Setscrew Inner - Ssterilized 12/20/2020 Implanted:Qty: 6 on 01/02/2021 by Jarvis Martell MD at [facility] Screw Spine Lumbar J&J- [employer] 0 / STERILIZED 12/20/2020 / LOAD 110 Screw Exp Poly 7x45mm - Ssterilized 12/20/2020 Implanted:Qty: 4 on 01/02/2021 by Jarvis Martell MD at [facility] Screw Spine Lumbar J&J- DEPU[employer]INE INC 5 / STERILIZED 12/20/2020 / LOAD 110 Synergy- [id number] Implanted:11/17 by Dominic Young MD (Quantity not on file) Stent 12/08/2020 / / [id number] Description:placed in the RC A Stent Synergy Xd 5.0x12mm Evrlms Elut [id number] - [id number] Implanted:Qty: 1 on 12/13/2021 at [facility] Stent N/A: Coronary [employer] 12/18/2022 [id number] / / [id number] Putty Dbx Dbm 5c 31560 - [id number] Implanted:Qty: 1 on 01/02/2021 by Jarvis Martell MD at [facility] Tissue Spine Lumbar MUSCULOSKELETAL TRANSPLANT FOU 09/04/2021 [id number] / [id number] / Healos Implanted:Qty: 1 on 05/06/2011 at [facility] 05/17/2011 [id number] / / [id number] Description:depuy spine [place] Cage Implanted:Qty: 1 on 05/06/2011 at [facility] 2 / Description:concord bullet c age, load#24 05-01-2011 Durata 65 Cm Implanted:Qty: 1 on 03/11/2025 by Chivo Moreland MD at [facility] N/A: Heart 01/14/2027 DAMON-712 0 / [id number] / [place] Hf Defibrillator Implanted:Qty: 1 on 03/11/2025 by Chivo Moreland MD at [facility] Left: Chest 04/16/2026 DAMON-CDH [id number] / [id number] / Description:per Damon Rep - NOT MRI safe. Patient has an abadoned lead from another device -cole 05/04/25 Explanted Type Area Deputy Treasurer Device Identifier Shelf Expiration Date Model / Serial / Lot Pacemaker Assurity-2 Mri [id number] - [id number] Implanted:Qty : 1 on 12/14/2021 by Aki Mccray MD at [facility] Pacemaker Left: Chest [employer] 05/16/2023 [id number] / [id number] / [id number] Description:Assurity MRI pacemaker and Tendril MRI and Tendril STS pacing leads allow full body, 1.5T and 3T MRI scans.* When the Assurity MRI pacemaker is combined with Tendril STS or Tendril MRI pacing leads there is no wait time between implant and MRI scan readiness.-cole 12/20/21 EXPLANTED -see new implant tab -NOW HAS ABANDONED LEAD - NOT MRI SAFE -cole 05/04/25 Log [id number] - Depuy Expedium 5.5 Spine Tray - 1 - Rene Xpdm 5.5 Ti Prebnt 45mm [id number] Implanted:Qty : 1 on 05/06/2011 at [facility] Explanted:Qty : 1 on 01/02/2021 by Jarvis Martell MD at [facility] Rene J&J- DEPUY SPINE INC [id number] / / Log [id number] - Depuy Expedium 5.5 Spine Tray - 1 - Screw Set Inner 000 Implanted:Qty : 2 on 05/06/2011 at [facility] Explanted:Qty : 2 on 01/02/2021 by Jarvis Martell MD at [facility] Screw J&J- MED PROD [...] POC GLUCOSE Routine 05/13/2025 1:55 PM CDT TEACHER HOME THERAPY EVALUATE AND TREAT Pending Discharge 05/13/2025 9:34 [...] POC GLUCOSE Routine 05/04/2025 4:22 AM CDT RI PROGRAM EVAL, IMPLANT DEVICE CARDVERT/DEFIB,MULTI- LEAD W/IN GLOBAL Routine 04/18/2025 3:01 PM CDT NICM (nonischemic cardiomyopathy) (CMS/HCC) Encounter for implantable defibrillator reprogramming or check RI PRGRMG EVAL IMPLANTABLE IN PERSON MULTI LEAD [...] EKG 12-LEAD Stat 03/17/2025 10:25 AM CDT RI PRGRMG EVAL IMPLANTABLE IN PERSON MULTI LEAD DFB Routine 03/17/2025 8:50 AM CDT Tachy-michael syndrome (CMS/HCC) Pacemaker TELEMETRY REPORT 03/16/2025 4:03 PM CDT TELEMETRY REPORT 03/15/2025 10:37 PM CDT POC GLUCOSE Routine 03/12/2025 2:24 PM CDT PULSE OXIMETRY, WITH EXERCISE Pending Discharge 03/12/2025 12:14 PM CDT POC GLUCOSE Routine 03/12/2025 10:16 AM CDT POC GLUCOSE Routine 03/12/2025 2:24 AM CDT HEMOGLOBIN A1C Stat 03/09/2025 4:18 PM CDT LIPID PANEL Routine 05/21/2022 2:46 PM CDT Benign hypertension Mixed hyperlipidemia POC OCCULT BLOOD 1 CARD Routine 01/21/2021 2:16 PM MERCHANDISE CLERK from Last 3 Months or Most Recently Relevant to Health Maintenance Results * (ABNORMAL) BASIC METABOLIC PANEL (06/01/2025 10:07 AM CDT) Only the most recent of15 resultswithin the time period is included. GLUCOSE [...] Comment: FASTING:NO FASTING: NO Test Performed at: [facility] [address] [place] [address] Humberto Byers MD Blood 06/01/2025 10:0 7 AM CDT 06/01/2025 10:07 AM CDT Cuauhtemoc Saez DNP CHEMISTRY ORDERABLES Fi nal Result [facility] [phone] [facility] [address] [place] [address] * (ABNORMAL) POC GLUCOSE (05/18/2025 12:29 PM CDT) Only the most recent of70 resultswithin the time period is included. GLUCOSE POC 237(H) 74 - 99 mg/dL 05/18/2025 12:29 PM CDT [facility] SPECIMEN SOURCE, GLUCOSE POC Whole Blood 05/18/2025 12:29 PM CDT [facility] Blood, whole 05/18/2025 12:2 9 PM CDT 05/18/2025 12:40 PM CDT Sarahi Allen MD POINT OF CARE TESTING Final Resu lt Performing Organization Address City/[facility]/ZIP Co de Phone Number [facility] [employer] [facility] CLIA# [id number] [facility] [place] [address] * TELEMETRY REPORT (05/17/2025 1:24 PM CDT) Only the most recent of6 resultswithin the time period is included. Provider Scanning ECG ORDERABLES Final Result * (ABNORMAL) CBC WITH DIFFERENTIAL (05/16/2025 7:01 AM CDT) Only the most recent of16 resultswithin the time period is included. WBC 5.2 4.0 - 9.8 K/uL 05/16/2025 7:36 AM CDT [facility] RBC 4.78 4.50 - 5.40 M/uL 05/16/2025 7:36 AM CDT [facility] HEMOGLOBIN 14.5 13.6 - 16.5 g/dL 05/16/2025 7:36 AM CDT [facility] HEMATOCRIT 44.7 40.0 - 48.0 % 05/16/2025 7:36 AM CDT [facility] . [facility] MCV 93.5 82.0 - 99.0 fL 05/16/2025 7:36 AM CDT [facility] MCH 30.3 27.2 - 32.6 pg 05/16/2025 7:36 AM CDT [facility] MCHC 32.4 31.5 - 35.5 g/dL 05/16/2025 7:36 AM CDT [facility] RDW 16.4(H) 11.5 - 14.5 % 05/16/2025 7:36 AM CDT [facility] RDW-STDEV 56.5(H) 37.1 - 48.7 fL 05/16/2025 7:36 AM CDT [facility] PLATELETS 174 140 - 350 K/uL 05/16/2025 7:36 AM CDT [facility] MPV 10.7 9.3 - 12.4 fL 05/16/2025 7:36 AM CDT [facility] - . [facility] NEUTROPHILS 62 % 05/16/2025 7:36 AM CDT [facility] . [facility] LYMPHOCYTES 17 % 05/16/2025 7:36 AM CDT [facility] . [facility] MONOCYTES 16 % 05/16/2025 7:36 AM CDT [facility] - . [facility] EOSINOPHILS 4 % 05/16/2025 7:36 AM CDT [facility] - . [facility] BASOPHILS 1 % 05/16/2025 7:36 AM CDT [facility] - . [facility] IMMATURE GRANULOCYTES 0 % 05/16/2025 7:36 AM CDT [facility] - . [facility] NEUTROPHIL ABSOLUTE 3.21 1.90 - 7.00 K/uL 05/16/2025 7:36 AM CDT [facility] - . [facility] LYMPHOCYTE ABSOLUTE 0.86 0.70 - 4.50 K/uL 05/16/2025 7:36 AM CDT [facility] - . [facility] MONOCYTE ABSOLUTE 0.82 0.10 - 1.30 K/uL 05/16/2025 7:36 AM CDT [facility] - [facility] EOSINOPHIL ABSOLUTE 0.22 0.00 - 0.70 K/uL 05/16/2025 7:36 AM CDT [facility] - [facility] BASOPHILS ABSOLUTE 0.05 0.00 - 0.20 K/uL 05/16/2025 7:36 AM CDT [facility] - . [facility] IMMATURE GRANULOCYTES ABSOLUTE 0.01 0.00 - 0.03 K/uL 05/16/2025 7:36 AM CDT [facility] - [facility] Blood Venipuncture / Unknown 05/16/2025 7:01 AM CDT 05/16/2025 7:17 AM CDT Natacha Ellis ROTARY KILN OPERATOR HEMATOLOGY ORDERABLES Final Result Performing Organization Address City/[facility]/ZIP Co de Phone Number [facility]# [id number] [address] [place] [address] * MAGNESIUM LEVEL (05/16/2025 7:01 AM CDT) Only the most recent of7 resultswithin the time period is included. MAGNESIUM 2.0 1.6 - 2.4 mg/dL 05/16/2025 8:01 AM CDT [facility] Blood Venipuncture / Unknown 05/16/2025 7:01 AM CDT 05/16/2025 7:17 AM CDT us Adirenne Malave BRANCH MANAGER TRAINEE CHEMISTRY ORDERABLES Maryanne l Result [facility] CLIA# [id number] [address] [place] [address] * SYPHILIS SEROLOGY W/REFLEX (05/12/2025 8:33 AM CDT) T PALLIDUM ANTIBODIES NEGATIVE NEGATIVE 05/14/2025 12:03 PM CDT [facility] Comment: No antibodies to T. pallidum (the [...] 8:59 AM CDT Narrative [facility] - 05/14/2025 12:03 PM CDT Performing Organization Information: Site ID: [id number] Name: [email or web address] [facility] Address: [address] [place] [id number] Director: Dominic Wilcox Adrienne Malave BRANCH MANAGER TRAINEE CHEMISTRY ORDERABLES Maryanne l Result [facility] [phone] * ECHOCARDIOGRAM W/ CONTRAST AGENT (05/12/2025 7:56 AM CDT) EJECTION FRACTION 35 INTERFACE SYSTEM 05/12/2025 6:52 AM CDT Narrative INTERFACE SYSTEM - 05/12/2025 8:25 AM CDT [address] [address] [email or web address] Transthoracic Echocardiogram Patient: Kameron Man Study ID: ECHOCARDIOGRAM W Gender: M : 1945 Age: 79 Race: CAU Height 180.3cm Study Date: 05/12/2025 Weight: 119.8kg Access. #: [id number] BP: *Referring Physician:Adrienne Recinos *Ordering Physician:Adrienne Recinos hot die press operator: Nurse: Indications: Cardiomyopathy. STUDY CONCLUSIONS: SUMMARY: - [...] AM. Prepared and Electronically Authenticated Christina Ott [id number] Procedure Note Christina Ott MD - 05/12/2025 [place] [address] [email or web address] Transthoracic Echocardiogram Patient: Kameron Man Study ID: ECHOCARDIOGRAM W Gender: [place] : 1945 Age: 79 Race: CHANDA Height 180.3cm Study Date: 05/12/2025 Weight: 119.8kg Access. #: [id number] BP: *Referring Physician:* Adrienne Malave *Ordering Physician:* Adrienne Malave hot die press operator: Nurse: Indications: Cardiomyopathy. STUDY CONCLUSIONS: SUMMARY: - [...] AM. Prepared and Electronically Authenticated Christina Ott [id number] Adrienne Malave BRANCH MANAGER TRAINEE US ORDERABLES Final Res ult INTERFACE SYSTEM Refer to clinic/hospital department * BLOOD CULTURE (05/11/2025 12:02 PM CDT) Only the most recent of2 resultswithin the time period is included. Pathologist [facility] BLOOD CULTURE No growth 05/16/2025 2:40 PM CDT [facility] Blood (Peripheral) Venipuncture / Unknown 05/11/2025 12:02 PM CDT 05/11/2025 12:25 PM CDT Narrative [facility] - 05/16/2025 2:40 PM CDT Specimen processed with suboptimal blood volume collected. Adrienne Malave NP MICROBIOLOGY - GENERAL OR DERABLES Final Result [facility] [employer] [facility]# [id number] [address] [place] [address] * HIV DETECTION W/REFLX CONFIRMATION (05/11/2025 12:00 PM CDT) HIV-1 AND 2 ABS AND HIV-1 AG Non-reacti ve Non-reacti ve 05/11/2025 1:29 PM CDT [facility] Blood Venipuncture / Unknown 05/11/2025 12:00 PM CDT 05/11/2025 12:24 PM CDT us Adrienne Malave BRANCH MANAGER TRAINEE CHEMISTRY ORDERABLES Maryanne l Result [facility] LABORATORY SERVICES [facility]# [id number] [address] [facility] [place] [phone] * EKG 12-LEAD (05/10/2025 4:56 PM CDT) Only the most recent of3 resultswithin the time period is included. 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: : 1945 Requested By: MINAL Corcoran Order Number: [id number] Reading MD: David Tolbert Measurements Intervals Oketo Rate: 80 P: 0 RI: 0 QRS: 160 QRSD: 174 T: 19 QT: 477 QTc: 551 Interpretive Statements Afib/flutter and ventricular-paced rhythm Electronically Signed On 05-11-2025 9:10:08 CDT by David Tolbert Procedure Note David Tolbert MD - 05/11/2025 [facility] [address] [place] [address] Test Date: 2025-05-10 Pat Name: [facility] Department: 41 Room: [facility] 1 Gender: Male 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 Coronary artery calcification. DICTATION LOCATION: Location [address] [place] [address] us Adrienne Malave BRANCH MANAGER TRAINEE CT ORDERABLES Final Res ult * CT HEAD CERVICAL SPINE WO CONTRAST (05/10/2025 1:44 PM CDT) Only the most recent of2 resultswithin the time period is included. Anatomical Region Laterality Modality Head Computed Tomogra phy 05/10/2025 1:36 PM CDT Impressions 05/10/2025 2:01 PM CDT IMPRESSION: 1. No acute abnormality of the head or cervical spine. DICTATION LOCATION: Location [address] [place] [address] Narrative 05/10/2025 2:[address] HEAD WITHOUT CONTRAST AND CT CERVICAL SPINE WITHOUT CONTRAST WITH REFORMATTED IMAGES DATE: 05/10/2025 1:44 PM HISTORY: Fall this morning hit head and neck, current neck pain. Acute metabolic encephalopathy; Type 2 diabetes mellitus with diabetic polyneuropathy, with long-term current use of insulin ([facility]/HCC); Type 2 diabetes mellitus with diabetic [...] or cervical spine. DICTATION LOCATION: Location 1 - [facility] Adrienne Malave BRANCH MANAGER TRAINEE CT ORDERABLES Final Res ult * C-REACTIVE PROTEIN (05/10/2025 7:08 AM CDT) Only the most recent of2 resultswithin the time period is included. CRP <3.0 <5.0 mg/L 05/10/2025 8:29 AM CDT [facility] Blood Venipuncture / Unknown 05/10/2025 7:08 AM CDT 05/10/2025 7:38 AM CDT Adrienne Malave BRANCH MANAGER TRAINEE CHEMISTRY ORDERABLES Maryanne l Result [facility] [id number] [address] [place] [address] * (ABNORMAL) BRAIN NATRIURETIC PEPTIDE, BNP OR PROBNP (05/10/2025 7:08 AM CDT) Only the most recent of3 resultswithin the time period is included. PROBNP, N TERMINAL 2,277(H) <449 pg/mL 05/10/2025 11:20 AM CDT [facility] Comment: INTERPRETIVE COMMENT based on diagnosis: Diagnostic [...] CDT 05/10/2025 7:38 AM CDT Adrienne Malave BRANCH MANAGER TRAINEE CHEMISTRY ORDERABLES Maryanne l Result [facility] LABORATORY SERVICES [facility]# [id number] [address] [place] [place] [address] * CT ABDOMEN PELVIS W CONTRAST (05/09/2025 3:27 PM CDT) Anatomical Region Laterality Modality Abdomen Computed Tomogra phy 05/09/2025 3:23 PM CDT Impressions 05/09/2025 5:05 PM CDT IMPRESSION: Lumbar spondylosis. Postop lumbar fusion. Renal cysts. Status post prior cholecystectomy. Pacemaker. Patient was scanned with iterative reconstruction to minimize radiation dose. DICTATION LOCATION: Location 1 - [facility] Narrative 05/09/2025 5:[address] SCAN ABDOMEN [...] minimize radiation dose. DICTATION LOCATION: Location 1 - [facility] us Ivette Natarajan MD CT ORDERABLES Final [...] Status post cholecystectomy. Dictation location: Location 4 Ivette Natarajan MD US ORDERABLES Final Resul t * (ABNORMAL) TROPONIN 6 HR, 5TH GEN (05/08/2025 2:54 PM CDT) Only the most recent of2 resultswithin the time period is included. TROPONIN T, 6 HR 5TH GEN 24(H) <=15 ng/L 05/08/2025 4:21 PM CDT [facility] DELTA 6HR TROPONIN T 0 See Interp. 05/08/2025 4:21 PM CDT [facility] Blood Venipuncture / Unknown 05/08/2025 2:54 PM CDT 05/08/2025 3:41 PM CDT Narrative [facility] - 05/08/2025 4:21 PM CDT Troponin elevated. Delta indeterminate. Delay in collection of timed specimen beyond recommended collection interval. Results must be interpreted in clinical context. Natacha Ellis APRN CHEMISTRY ORDERABLES Final Result [facility] [employer] [facility]# [id number] [address] [facility] [place] [address] * (ABNORMAL) TROPONIN 2 HR, 5TH GEN (05/08/2025 10:59 AM CDT) Only the most recent of2 resultswithin the time period is included. [facility] TROPONIN T, 2 HR 5TH GEN 25(H) <=15 ng/L 05/08/2025 12:14 PM CDT [facility] DELTA 2HR TROPONIN T 1 See Interp. 05/08/2025 12:14 PM CDT [facility] Blood Venipuncture / Unknown 05/08/2025 10:59 AM CDT 05/08/2025 11:40 AM CDT [facility] LABORATORY [facility] - 05/08/2025 12:14 PM CDT Troponin elevated. Delta not changing. Delay in collection of timed specimen beyond recommended collection interval. Results must be interpreted in clinical context. Natacha Ellis APRN CHEMISTRY ORDERABLES Final Result Performing Organization Address [facility]/ZIP Co de Phone Number [facility] CLIA# [id number] [address] [place] [address] * (ABNORMAL) TROPONIN BASELINE, 5TH GEN (05/08/2025 8:55 AM CDT) Only the most recent of2 resultswithin the time period is included. [facility] TROPONIN T, BASELINE 5TH GEN 24(H) <=15 ng/L 05/08/2025 10:21 AM CDT [facility] Blood Venipuncture / Unknown 05/08/2025 8:55 AM CDT 05/08/2025 9:29 AM CDT [facility] LABORATORY [facility] - 05/08/2025 10:21 AM CDT Troponin elevated. Natacha Ellis APRN CHEMISTRY ORDERABLES Final Result [facility] CLIA# [id number] [address] [place] [address] * (ABNORMAL) LIPASE (05/08/2025 8:55 AM CDT) [facility] LIPASE 12(L) 13 - 60 U/L 05/08/2025 10:21 AM CDT [facility]AT[facility] - . [place] Blood Venipuncture / Unknown 05/08/2025 8:55 AM CDT 05/08/2025 9:29 AM CDT Ivette Natarajan MD CHEMISTRY ORDERABLES Final Result [facility] LABORATORY SERVICES [facility] CLIA# [id number] [address] [facility] [place] [address] * (ABNORMAL) URINALYSIS WITH REFLEX MICROSCOPIC (05/08/2025 7:50 AM CDT) Only the most recent of2 resultswithin the time period is included. COLOR UA Yellow Pale to Dark Yellow 05/08/2025 8:23 AM T [facility] LABORATORY SERVICES - . [facility] CLARITY UA Clear Clear 05/08/2025 8:23 AM T [employer] LABORATORY SERVICES - [facility] SPECIFIC GRAVITY UA 1.014 1.003 - 1.035 05/08/2025 8:23 AM T [facility] - . [facility] PH UA 6.0 5.0 - 8.0 05/08/2025 8:23 AM T [facility]OR[facility] SERVICES - . [facility] LEUKOCYTE ESTERASE UA Negative Negative 05/08/2025 8:23 AM [facility] LABORATORY SERVICES - . [facility] NITRITE UA Negative Negative 05/08/2025 8:23 AM T [employer] [facility]ATORY SERVICES - . [facility] PROTEIN UA Negative Negative 05/08/2025 8:23 AM T [facility] - . [facility] GLUCOSE UA 3+(A) Negative 05/08/2025 8:23 AM T [facility] - . [facility] KETONES UA 1+(A) Negative 05/08/2025 8:23 AM T [facility] - . [facility] UROBILINOGEN UA Normal <2.0 mg/dL 8:23 AM T [employer] [facility]ATORY SERVICES - . [facility] BILIRUBIN UA Negative Negative 05/08/2025 8:23 AM T [facility] - [facility] BLOOD UA Negative Negative 05/08/2025 8:23 AM CDT [facility]ORATORY SERVICES - [facility] WBC UA 0-2 0 - 2 /hpf 05/08/2025 8:23 AM CDT [facility] LAB[facility]ATORY SERVICES - . [facility] RBC UA 0-2 0 - 2 /hpf 05/08/2025 8:23 AM CDT [facility] SERVICES - . [facility] BACTERIA UA Negative Negative /hpf 05/08/2025 8:23 AM CDT [facility] - . [place] HYALINE CAST 0-2 None Seen, 0-2 /lpf 05/08/2025 8:23 AM CDT [facility] - [facility] GRANULAR CAST 0-2(A) None Seen /lpf 05/08/2025 8:23 AM CDT [facility] - [facility] Urine URINE SPECIMEN OBTAINED BY CLEAN CATCH PROCEDURE / Unknown Collection / Unknown 05/08/2025 7:50 AM CDT 05/08/2025 7:53 AM CDT Minal Villegas MD URINE ORDERABLES Final Result [facility] [employer] [facility]# [id number] [address] [place] [address] * (ABNORMAL) DRUG SCREEN, URINE (05/08/2025 7:49 AM CDT) AMPHETAMINE QUAL, URINE Negative Negative 05/08/2025 8:25 AM CDT [facility] BARBITURATE QUAL, URINE Negative Negative 05/08/2025 8:25 AM CDT [facility] BENZODIAZEPINE QUAL, URINE Presumptive Positive(A) Negative 05/08/2025 8:25 AM CDT [facility] COCAINE QUAL URINE Negative Negative 05/08/2025 8:25 AM CDT [facility] OPIATE QUAL, URINE Negative Negative 05/08/2025 8:25 AM CDT [facility] - [facility] CANNABINOIDS QUAL, URINE Negative Negative 05/08/2025 8:25 AM CDT [facility] - [facility] PCP QUAL, URINE Negative Negative 8:25 AM CDT [facility] OXYCODONE QUAL, URINE Negative Negative 05/08/2025 8:25 AM CDT [facility] METHADONE QUAL, URINE Negative Negative 05/08/2025 8:25 AM CDT [facility] FENTANYL QUAL, URINE Negative Negative 05/08/2025 8:25 AM CDT [facility] CREATININE, URINE 87.5 40.0 - 278.0 mg/dL 05/08/2025 8:25 AM [facility] Comment:Reference Range vari es with fluid intake and diet. Urine URINE SPECIMEN OBTAINED BY CLEAN CATCH PROCEDURE / Unknown Collection / Unknown 05/08/2025 7:49 AM CDT 05/08/2025 7:54 AM CDT [facility] - 05/08/2025 8:25 AM CDT This test [...] Negative 25 ng/mL Fentanyl Negative 5 ng/mL Tony Brooke MD URINE ORDERABLES Fin al Result [facility]# [id number] [address] [facility] [place] [address] * XR ABDOMEN 1 VW (05/07/2025 11:40 PM CDT) Anatomical Region Laterality Modality Abdomen Computed Radiogr aphy 05/07/2025 11:4 0 PM CDT Impressions 05/08/2025 6:09 AM CDT IMPRESSION: 1. Nonspecific bowel gas pattern with no evidence of bowel obstruction. DICTATION LOCATION: Location 2 - [facility] Narrative 05/08/2025 6:09 AM CDT XR ABDOMEN [...] no evidence of bowel obstruction. DICTATION LOCATION: [address] Natacha Ellis APRN DIAGNOSTIC IMAGING ORDERABL ES Final Result * RESPIRATORY PATHOGEN PCR PANEL (05/07/2025 4:48 PM CDT) Pathologist [facility] Respiratory Pathogen PCR Panel NOT DETECTED No respiratory pathogen nucleic acids detected. 05/07/2025 6:13 PM CDT [facility] [employer] [facility] COVID-19 PCR NOT DETECTED Not Detected 05/07/2025 6:13 PM CDT [facility] LAB[facility]AT[facility] Upper Respiratory ENTIRE NASOPHARYNX / Unknown Collection / Unknown 05/07/2025 4:48 PM CDT 05/07/2025 4:56 PM CDT [facility] LABORATORY [facility] - 05/07/2025 6:13 PM CDT The [...] MICROBIOLOGY - GENERAL ORDERAB LES Final Result [facility] [employer] [facility]# [id number] [address] [place] [address] * (ABNORMAL) COMPREHENSIVE METABOLIC PANEL (05/07/2025 2:11 PM CDT) Only the most recent of3 resultswithin the time period is included. SODIUM 140 136 - 145 mmol/L 05/07/2025 2:50 PM CDT [facility] LABORATORY [facility] - . [place] POTASSIUM 4.1 3.5 - 5.0 mmol/L 05/07/2025 2:50 PM CDT [facility] LABORATORY [facility] - . [place] CHLORIDE 103 98 - 107 mmol/L 05/07/2025 2:50 PM CDT [facility] LAB[facility]ATORY [facility] CO2 27 22 - 29 mmol/L 05/07/2025 2:50 PM CDT [facility] LABORATORY [facility] CALCIUM 8.7 8.6 - 10.2 mg/dL 05/07/2025 2:50 PM CDT [facility] LABORATORY [facility] BUN 12 8 - 23 mg/dL 05/07/2025 2:50 PM [facility] LABORATORY [facility] - [facility] CREATININE 1.01 0.67 - 1.17 mg/dL 05/07/2025 2:50 PM [facility] LABORATORY SERVICES [facility] Comment:The GFR result is no t clinically significant on patients <18 or >70 years of age. GLUCOSE 224(H) 74 - 99 mg/dL 05/07/2025 2:50 PM [facility] LABORATORY SERVICES [facility] TOTAL PROTEIN 5.7(L) 6.7 - 8.6 g/dL 05/07/2025 2:50 PM [facility] LABORATORY SERVICES [facility] ALBUMIN 3.7 3.5 - 5.2 g/dL 05/07/2025 2:50 PM [facility] LABORATORY SERVICES [facility] BILIRUBIN TOTAL 0.6 0.0 - 1.1 mg/dL 05/07/2025 2:50 PM [facility] LABORATORY [facility] ALKALINE PHOSPHATASE 79 40 - 129 U/L 05/07/2025 2:50 PM [facility] LABORATORY [facility] AST 27 <41 U/L 05/07/2025 2:50 PM [facility] LABORATORY [facility] ALT 19 <42 U/L 05/07/2025 2:50 PM [facility] LABORATORY [facility] GFR >60 mL/min/1.7 3 sq meter 05/07/2025 2:50 PM [facility] LABORATORY SERVICES [facility] Comment:eGFR calculated with 2020 CKD-EPI equation. Vegetarian diet, extremely high or low muscle mass, and may affect results. Cystatin C with Glomerular Filtration Rate is a suitable alternative for these patients. ANION GAP 10 8 - 16 mmol/L 05/07/2025 2:50 PM [facility] LABORATORY SERVICES [facility] Blood Venipuncture / Unknown 05/07/2025 2:11 PM CDT 05/07/2025 2:16 PM CDT [facility] LABORATORY SERVICES [facility] - 05/07/2025 2:50 PM CDT Samples containing indocyanine green cause interferences on Total and/or Direct Bilirubin and must not be measured. us Minal Villegas MD CHEMISTRY ORDERABLES Final Res ult [facility]# [id number] [place] [address] * CT HEAD WO CONTRAST (05/05/2025 11:11 AM CDT) Anatomical Region Laterality Modality Head Computed Tomogra phy 05/05/2025 11:0 6 AM CDT Impressions 05/05/2025 12:17 PM CDT IMPRESSION: 1. No acute intracranial process. DICTATION LOCATION: Location 1 - [facility] Narrative 05/05/2025 12:17 PM CDT EXAMINATION: CT HEAD [...] intracranial process. DICTATION LOCATION: Location 1 - [facility] Randa Sosa MD CT ORDERABLES Final Resu lt * GI PATHOGEN PCR PANEL (05/04/2025 7:00 PM CDT) GI Pathogen PCR panel NOT DETECTED No nucleic acids detected. 05/04/2025 8:33 PM CDT [facility] Stool STOOL SPECIMEN / Unknown 05/04/2025 7:00 PM CDT 05/04/2025 7:00 PM CDT Narrative [facility] - 05/04/2025 8:33 PM CDT The Film [...] MICROBIOLOGY - GENERAL OR DERABLES Final Result [facility]# [id number] [address] [facility] [place] [address] * VITAMIN B12 AND FOLATE (05/04/2025 4:11 PM CDT) Only the most recent of2 resultswithin the time period is included. VITAMIN B12 534 232 - 1,245 pg/mL 05/04/2025 5:19 PM CDT [facility] Comment:It has been reported that between 5 to 10% of patients with values between 200 and 400 pg/mL may experience neuropsychiatric and hematologic abnormalities due to occult B12 deficiency. Less than 1% of patients with values above 400 pg/mL will have symptoms. FOLATE, SERUM >20.0 >4.5 ng/mL 05/04/2025 5:19 PM CDT [facility] Blood Venipuncture / Unknown 05/04/2025 4:11 PM CDT 05/04/2025 4:24 PM CDT Jessica Aragon PA-C CHEMISTRY ORDERABLES Maryanne l Result Performing Organization Address City/[facility]/ZIP Co de Phone Number [facility]# [id number] [address] [place] [address] * (ABNORMAL) KETONES/BETA HYDROXYBUTYRATE (05/04/2025 9:42 AM CDT) Pathologist [facility] BETA HYDROXYBUTYRATE 2.2(H) <0.4 mmol/L 05/04/2025 11:19 AM CDT [facility] Blood Venipuncture / Unknown 05/04/2025 9:42 AM CDT 05/04/2025 9:45 AM CDT us Randa Sosa MD CHEMISTRY ORDERABLES Final Result [facility] CLIA# [id number] [address] [place] [address] * TSH (05/04/2025 9:42 AM CDT) Pathologist [facility] TSH 1.82 0.27 - 4.20 uIU/mL 05/04/2025 10:30 AM T [facility] LABORATORY SERVICES [facility] Blood Venipuncture / Unknown 05/04/2025 9:42 AM CDT 05/04/2025 9:45 AM CDT Jessica Aragon PA-C CHEMISTRY ORDERABLES Maryanne l Result Performing Organization Address City/[facility]/ZIP Co de Phone Number [facility] CLIA# [id number] [address] [place] [address] * (ABNORMAL) BLOOD GAS VENOUS (05/04/2025 9:42 AM CDT) PH, VENOUS 7.36 7.32 - 7.43 05/04/2025 9:50 AM T [facility] LABORATORY [facility] PCO2 VENOUS 42 38 - 50 mm Hg 05/04/2025 9:50 AM T [facility] LABORATORY SERVICES [facility] PO2 VENOUS 96(H) 25 - 40 mm Hg 05/04/2025 9:50 AM T [facility] [employer] [facility] HCO3 VENOUS 23 22 - 29 mmol/L 9:50 AM [facility] LABORATORY [facility] BASE EXCESS VENOUS -1.7 Reference Range Not Established mmol/L 05/04/2025 9:50 AM [facility] [employer] [facility] HEMOGLOBIN VENOUS 13.7 No Ref Range Estab g/dL 05/04/2025 9:50 AM [facility] LABORATORY SERVICES [facility] O2 SAT EST VENOUS 98(H) 40 - 70 % 05/04/2025 9:50 AM T [facility] [employer] SERVICES [facility] Blood, venous 05/04/2025 9:4 2 AM CDT 05/04/2025 9:45 AM CDT Akosua Bourgeois MD ABG ORDERABLES Final Resu lt [facility] [employer] [facility] CLIA# [id number] [address] [place] [address] * RI PROGRAM EVAL, IMPLANT DEVICE CARDVERT/DEFIB,MULTI-LEAD W/IN GLOBAL [...] - 16.5 g/dL 03/17/2025 5:06 PM CDT [facility] LAB[facility]AT[facility] HEMATOCRIT 36.0(L) 40.0 - 48.0 % 03/17/2025 5:06 PM CDT [facility] LABORATORY SERVICES [facility] Blood Venipuncture / Unknown 03/17/2025 4:23 PM CDT 03/17/2025 4:53 PM CDT Nova Marks NP HEMATOLOGY ORDERABLES Final Result [facility] LABORATORY [facility] CLIA# [id number] [address] [place] [address] * (ABNORMAL) IRON, TIBC, AND PERCENT SATURATION (03/17/2025 1:10 PM CDT) IRON 54(L) 59 - 158 ug/dL 03/17/2025 1:51 PM CDT [facility] TIBC 325 250 - 450 ug/dL 03/17/2025 1:51 PM CDT [facility] IRON % SATURATION 17(L) 20 - 50 % 03/17/2025 1:51 PM CDT [facility] TRANSFERRIN 256 200 - 360 mg/dL 03/17/2025 1:51 PM CDT [facility] Blood Venipuncture / Unknown 03/17/2025 1:10 PM CDT 03/17/2025 1:10 PM CDT Nova Marks NP CHEMISTRY ORDERABLES Final Result Performing Organization Address City/State/[facility] Co de Phone Number [facility] CLIA# [id number] [address] [place] [address] * ECHO LIMITED WO DOPPLER (03/17/2025 12:10 PM CDT) Pathologist [facility] EJECTION FRACTION EF: INTERFACE SYSTEM 03/17/2025 11:5 6 AM CDT Narrative INTERFACE SYSTEM - 03/17/2025 1:55 PM CDT [facility] [address] [place] [address] [email or web address] Transthoracic Echocardiogram (Report amended ) Patient: Kameron Man Study ID: ECHO LIMITED WO Gender: M : 1945 Age: 79 Race: CHANDA Height 180.3cm Study Date: 03/17/2025 Weight: 118.8kg Access. #: [id number] BP: *Referring Physician:Adrienne Ford *Ordering Physician:Adrienne Ford hot die press operator: Nurse: Indications: Evaluate for pericardial effusion. [...] Study time: 11:56 AM. Amended Stanislaw Lerner [id number] Procedure Note Stanislaw Lerner MD - 03/17/2025 [place] [address] [email or web address] Transthoracic Echocardiogram (Report amended ) Patient: Kameron Man Study ID: ECHO LIMITED WO Gender: M : 1945 Age: 79 Race: CHANDA Height 180.3cm Study Date: 03/17/2025 Weight: 118.8kg Access. #: [id number] BP: *Referring Physician:* Adrienne Mullen *Ordering Physician:Adrienne Ford hot die press operator: Nurse: Indications: Evaluate for pericardial effusion. [...] Study time: 11:56 AM. Amended Stanislaw Lerner [id number] Adrienne Mullen BRANCH MANAGER TRAINEE US ORDERABLES Edited Res ult - Final INTERFACE SYSTEM Refer to clinic/hospital department * POC LACTIC ACID (03/17/2025 10:56 AM CDT) LACTIC ACID POC 1.3 <=2.0 mmol/L 03/17/2025 10:56 AM CDT [facility] [employer] [facility] SPECIMEN SOURCE, GASES POC Blank 03/17/2025 10:56 AM CDT [facility] COMMENT, GASES POC Responsible Clinical Caregiver notified 03/17/2025 10:56 AM CDT [facility] [employer] [facility] Blood 03/17/2025 10:5 6 AM CDT 03/17/2025 10:58 AM CDT Aravind Jones DO POINT OF CARE TESTING Final Resu lt [facility] [employer] SERVICES - [facility] IRAIS# [id number] [address] [place] [address] * TYPE AND SCREEN (03/17/2025 10:50 AM CDT) ABO GROUP A 03/17/2025 12:00 PM CDT [facility] -- [facility] RH (D) TYPE Positive 03/17/2025 12:00 PM CDT [facility] ANTIBODY SCREEN Negative 03/17/2025 12:00 PM CDT [facility] Blood Venipuncture / Unknown 03/17/2025 10:50 AM CDT 03/17/2025 10:58 AM CDT Aravind Jones DO BLOOD BANK ORDERABLES Edited Res ult - Final [facility] [employer] SERVICES -- [facility] IRAIS# [id number] [address] [place] [address] * XR CHEST PA OR AP 1 VW (03/17/2025 10:38 AM CDT) Anatomical Region Laterality Modality Chest Computed Radiogr [...] process is identified. DICTATION LOCATION: Location 4 Aravind Jones DO DIAGNOSTIC IMAGING ORDERABLES Fi nal Result * PULSE OXIMETRY, WITH EXERCISE (03/12/2025 12:14 PM CDT) Narrative [facility] - 03/12/2025 12:14 PM CDT Rogelio Fierro RCP 03/12/2025 12:16 PM OXYGEN WALK STUDY Oxygen [...] The patient ambulated 100 ft. Please call [phone] for any questions about this walk study. Jayda Nagel MD PFT ORDERABLES Final Result [facility] [address] [place] [address] * (ABNORMAL) HEMOGLOBIN A1C (03/09/2025 4:18 PM CDT) HEMOGLOBIN A1C 9.4(H) <5.7 % 03/09/2025 10:32 PM CDT [facility] LABOR[facility]ORY SERVICES - [facility] EST. AVG GLUCOSE, A1C 223 mg/dL 03/09/2025 10:32 PM CDT [facility] Blood Venipuncture / Unknown 03/09/2025 4:18 PM CDT 03/09/2025 4:29 PM CDT Narrative [facility] - 03/09/2025 10:32 PM CDT HGB A1C INTERPRETATION NORMAL: <5.7% PRE-DIABETES: 5.7 - 6.4% DIABETES: 6.5% OR GREATER Natacha Ellis ROTARY KILN OPERATOR CHEMISTRY ORDERABLES Final Result [facility] [employer] [facility] CLIA# [id number] [address] [facility] [address] [place] [address] [address] * (ABNORMAL) LIPID PANEL (05/21/2022 2:46 PM CDT) [facility] CHOLESTEROL 153 <200 mg/dL [facility] griselda Lopez HDL 48 > OR = 40 mg/dL [facility] griselda Lopez TRIGLYCERIDE 266(H) <150 mg/dL [facility] Comment: If a non-fasting specimen was collected, consider repeat triglyceride testing on a fasting specimen if clinically indicated. Darshan et al. J. of Clin. Lipidol. 2015;9:129-169. LDL CALCULATED 70 mg/dL (calc) [facility] Comment: Reference range: <100 Desirable range <100 mg/dL for primary prevention; <70 mg/dL for patients with CHD or diabetic patients with > or = 2 CHD risk factors. LDL-C is now calculated using the Ariane calculation, which is a validated novel method providing better accuracy than the Friedewald equation in the estimation of LDL-C. Girma YING et al. GINA. 2013;310(19): 5434-3352 (http://education.Picitup/faq/JSC777) CHOL/HDL RATIO 3.2 <5.0 (calc) [facility] TOTAL NON-HDL CHOL(LDL+VLDL) 105 <130 mg/dL (calc) [facility] Comment: For patients with diabetes plus 1 major ASCVD risk factor, treating to a non-HDL-C goal of <100 mg/dL (LDL-C of <70 mg/dL) is considered a therapeutic option. Test Performed at: [facility] [address] [address] Humberto Thi Vo Blood 05/21/2022 2:46 PM CDT 05/21/2022 2:46 PM CDT Dominic Young MD CHEMISTRY ORDERABLES Final Resul t [facility] [phone] [facility] [place] [address] [place] [address] * POC OCCULT BLOOD 1 CARD (01/21/2021 2:16 PM MERCHANDISE CLERK) OCCULT BLOOD 1 CARD POC Negative Negative 01/21/2021 2:16 PM MERCHANDISE CLERK [facility] NECK FITTER NAME POC JAZZMINE SHERMAN Hector 01/21/2021 2:16 PM MERCHANDISE CLERK [facility] Stool STOOL SPECIMEN / Unknown 01/21/2021 2:16 PM MERCHANDISE CLERK 01/22/2021 10:40 AM MERCHANDISE CLERK Minal Villegas MD POINT OF CARE TESTING Final Re sult [facility]ORATORY SERVICES [facility] CLIA# [id number] [address] [place] [address] from Last 3 Months or Most Recently Relevant [place] [address] MEDICARE PART A AND B [facility] SUPP RX [employer]ER[employer] Medicare Part D RX [employer] PLANS (INTERNAL) [facility] Internal Plans RX EMDEON Commercial Advance Directives For more information, please contact: [phone] Documents on File Type Date Recorded Patient Blocker Heated Metal Forms Expl anation Advance Directive POA 02/07/2021 9:09 [...] 3:25 PM 03/11/2025 6:40 PM Care Teams Sewer Pipe Layer Helper Relationship Specialty Start Date End Date Eric Pretty MD [address] [place] [address] PCP - General Internal Medicine 11/24/19
--- OUTSIDE RECORDS SUMMARY | 2025-06-11 11:43 | XMS_ITS | Continuity of Care Document ---
Author Organization [facility] Address [address] [place] [address] Phone Care Team Providers Care Tray Casting Machine Operator Name Role Phone Wally Ray MD [...] POSTOP FOLLOW-UP VISIT OFFICE/OUTPATIENT VISIT [facility] Advance Directives Directive Yes / No Effective Date File Name No Information Encounters Encounter Description Practice Location Reason(s) For Visit Diagnoses Date Provider Providers Copied on Encounter OFFICE CONSULTATION [facility], [address], [place], [address], [place] tel:[phone] [facility] Hunter Biceps tendon tear 4 Flor Lo. [address], [place], [place], [address] . tel: [phone] Referring Provider: Master Melendez, [address], [place], [address] . tel:[phone] [facility], [address], [place], [address], tel:[phone] [facility] Onychia of finger [address]. [address], [place], [address] . tel: [phone] OFFICE/OUTPATI ENT VISIT [facility], [address], [place], [address], tel:[phone] [facility] [address]. [address], [place], [address] . tel: [phone] Family History Family Member Type Diagnosis Age [...]
--- OUTSIDE RECORDS SUMMARY | 2025-06-11 11:43 | XMS_ITS | Clinical Summary ---
Author Organization [facility] Address [address] [place] [address] Care Team Providers Care Foot Caster Name Role Phone Eric Pretty MD Primary Care Provider [phone] Source Comments [facility],non-owned Affiliates and Associated Physician Practices is amultiple site organization consisting of ambulatory clinics and hospital sitesin [place], [place], [place] and [place]. This disclosure is being madepursuant to the Care Everywhere program and may not contain all information available regarding this patient. Last updated 18.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
--- OUTSIDE RECORDS SUMMARY | 2025-06-11 11:44 | XMS_ITS | Encounter Summary ---
Author Organization [facility] Address [address] [address] Care Team Providers Care Phlebotomy Technician Name Role Phone Jarvis Harding Primary Care Provider [phone] Jarvis Harding Primary Care Provider [phone] Kindra Fernandez MD Primary Care Provider Eric Pretty MD Primary Care Provider [phone] Kale MONTANA MD, Master Hunt Unavailable [phone] Dominic Young MD Unavailable [phone] Carlos Hernandez MD Unavailable [phone] Encounter Details Date Type Department Care Team (Late st Contact Info) Description 11/07/2016 Orders Only [facility] ProviderChuck MD [address] [place] [address] Social History Tobacco Use Types Packs/Day Years Used Date Smoking Tobacco: Former Alcohol Use Standard Drinks/Week Comments Yes 0 (1 standard drink = 0.6 oz pur e alcohol) Sex and Gender Information Value Date Recorded Sex Assigned at Not on file 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 Gender Identity Not on file Sexual [...] on filedocumented in this encounter Care Teams Phlebotomy Technician Relationship Specialty Start Date End Date Jarvis Harding [address] [place] [address] PCP - General 02/14/17 08/27/17 Jarvis Harding [address] [place] [address] PCP - General 07/13/14 02/13/17 Kindra Fernandez MD [address] [place] [address] PCP - General Family Practice 08/28/17 01/27/18 Eric Pretty MD [address] [place] [address] PCP - General Internal Medicine 01/28/18 Master Henley III, MD [address] [place] [address] Consulting Physician Rheumatology 01/28/18 01/26/24 Dominic Young MD [address] [place] [address] Consulting Physician Cardiology 01/04/20 Carlos Hernandez MD [address] [place] [address] Consulting Physician Rheumatology 01/27/24 documented as of this encounter
--- OUTSIDE RECORDS SUMMARY | 2025-06-11 11:44 | XMS_ITS | Encounter Summary ---
Author Organization [facility] Address [address] [address] Care Team Providers Care White Lead Grinder Name Role Phone Jarvis Harding Primary Care Provider [phone] Jarvis Harding Primary Care Provider [phone] Kindra Fernandez MD Primary Care Provider Eric Pretty MD Primary Care Provider [phone] Kale MONTANA MD, Master Hunt Unavailable [phone] Dominic Young MD Unavailable [phone] Carlos Hernandez MD Unavailable [phone] Encounter Details Date Type Department Care Team (Late st Contact Info) Description 12/17/2016 Orders Only [facility] ProviderChuck MD [address] [place] [address] Social History Tobacco Use Types Packs/Day Years Used Date Smoking Tobacco: Former Alcohol Use Standard Drinks/Week Comments Yes 0 (1 standard drink = 0.6 oz pur e alcohol) Sex and Gender Information Value Date Recorded Sex Assigned at Not on file 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 Gender Identity Not on file Sexual [...] on filedocumented in this encounter Care Teams White Lead Grinder Relationship Specialty Start Date End Date Jarvis Harding [address] [place] [address] PCP - General 02/14/17 08/27/17 Jarvis Harding [address] [place] [address] PCP - General 07/13/14 02/13/17 Kindra Fernandez MD [address] [place] [address] PCP - General Family Practice 08/28/17 01/27/18 Eric Pretty MD [address] [place] [address] PCP - General Internal Medicine 01/28/18 Master Henley III, MD [address] [place] [address] Consulting Physician Rheumatology 01/28/18 01/26/24 Dominic Young MD [address] [place] [address] Consulting Physician Cardiology 01/04/20 Carlos Hernandez MD [address] [place] [address] Consulting Physician Rheumatology 01/27/24 documented as of this encounter
--- OUTSIDE RECORDS SUMMARY | 2025-06-11 11:44 | XMS_ITS | Encounter Summary ---
Author Organization [facility] Address [address] [place] [address] Care Team Providers Care Endocrinology Physician Name Role Phone Jarvis Harding Primary Care Provider Jarvis Harding Primary Care Provider Jarvis Harding Primary Care Provider Jarvis Harding Primary Care Provider Jarvis Harding Primary Care Provider Jarvis Hrading Primary Care Provider Kindra Fernandez MD Primary Care Provider Eric Pretty MD Primary Care Provider [phone] Kale MONTANA MD, John J. 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 Gender Identity Not on file Sexual Orientation [...] on filedocumented in this encounter Care Teams Endocrinology Physician Relationship Specialty Start Date End Date Jarvis Harding [address] [place] [address] PCP - General 02/14/17 08/27/17 Jarvis Harding [address] [place] [address] PCP - General 07/13/14 02/13/17 Jarvis Harding [address] [place] [address] PCP - General 03/03/12 07/12/14 Jarvis Harding [address] [place] [address] PCP - General 02/18/12 03/02/12 Jarvis Harding [address] [place] [address] PCP - General 02/11/12 02/17/12 Jarvis Harding [address] [place] [address] PCP - General 07/24/11 02/10/12 Kindra Feranndez MD [address] [place] [address] PCP - General Family Practice 08/28/17 01/27/18 Eric Pretty MD [address] [place] [address] PCP - General Internal Medicine 01/28/18 Master Henley III, MD [address] [facility] [address] [place] [address] Consulting Physician Rheumatology 01/28/18 01/26/24 Dominic Young MD [address] [place] [address] Consulting Physician Cardiology 01/04/20 Carlos Hernandez MD [address] [place] [address] Consulting Physician Rheumatology 01/27/24 documented as of this encounter
--- OUTSIDE RECORDS SUMMARY | 2025-06-11 11:44 | XMS_ITS | Encounter Summary ---
Author Organization [facility] Address [address] [place] [address] Phone Care Team Providers Care Circuit Breaker Supervisor Name Role Phone Eric Pretty MD Primary Care Provider [phone] Kale MONTANA MD, Master Hunt Unavailable [phone] Dominic Young MD Unavailable [phone] Carlos Hernandez MD Unavailable Reason for Referral * Diagnostic Imaging (Routine) - Closed Specialty Diagnoses / Procedures Referred By Contac t Referred To Contact Radiology Diagnoses Arthrodesis status Foraminal stenosis of lumbar region Lumbar radiculopathy Procedures CT Lumbar Spine WO Contrast Denise Walker CNS Phone: tel: fax: [facility] [address] Referral ID Status Reason Start Date Expiration Date Visits Re quested Visits Authorized [id number] Closed 03/08/2019 09/16/2020 1 1 * Consultation (Routine) - Closed Specialty Diagnoses / Procedures Referred By Contac t Referred To Contact Pain Management Diagnoses Arthrodesis status Foraminal stenosis of lumbar region Lumbar radiculopathy Denise Walker CNS Phone: tel: fax: Kia Kwan MD [address] [place] [address] Phone: tel: fax: Referral ID Status Reason Start Date Expiration Date V isits Requested Visits Authorized [id number] Closed Specialty Services Required 03/08/2019 09/16/2020 1 1 Scheduling Instructions Please schedule for left L4-L5 transforaminal injection.i Question Answer Please select the performing region: [facility] [157] To provider: KIA KWAN [[id number]] # of visits: 1 Encounter Details Date Type Department Care Team (Late st Contact Info) Description 03/08/2019 Orders Only [facility] Orth[facility] [address] [facility] 1st [address] [place] [address] Denise Walker CNS [address] [facility] [address] [place] [address] Arthrodesis status (Primary Dx); Foraminal stenosis of [...] on file 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 Denise Walker [facility] IMG CT PROCEDURES Final Res ult documented in this encounter Visit Diagnoses Diagnosis Arthrodesis status- Primary Foraminal stenosis of lumbar region Lumbar radiculopathy Thoracic or lumbosacral neuritis or radiculitis, unspecified Arthrodesis status Foraminal stenosis of lumbar region Lumbar radiculopathy Thoracic or lumbosacral neuritis or radiculitis, unspecified documented in this encounter Care Teams Circuit Breaker Supervisor Relationship Specialty Start Date End Date Eric Pretty MD [address] [place] [address] PCP - General Internal Medicine 01/28/18 Master Henley III, MD [address] [place] [address] Consulting Physician Rheumatology 01/28/18 01/26/24 Dominic Young MD [address] [place] [address] Consulting Physician Cardiology 01/04/20 Carlos Hernandez MD [address] [place] [address] Consulting Physician Rheumatology 01/27/24 documented as of this encounter
--- OUTSIDE RECORDS SUMMARY | 2025-06-11 11:44 | XMS_ITS | Encounter Summary ---
Author Organization [facility] Address [address] [place] [address] Care Team Providers Care Spindraw Operator Name Role Phone Eric Pretty MD Primary Care Provider [phone] Kale MONTANA MD, Master Hunt Unavailable Dominic Young MD Unavailable [phone] Carlos Hernandez MD Unavailable [phone] Encounter Details Date Type Department Care Team (Late st Contact Info) Description 04/14/2019 Telephone [facility] [address] [place] [address] Kia Kwan MD [address] [address] [place] [address] Social History Tobacco Use Types [...] on file 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 documented as of this encounter Visit Diagnoses Not on filedocumented in this encounter Care Teams Spindraw Operator Relationship Specialty Start Date End Date Eric Pretty MD [address] [place] [address] PCP - General Internal Medicine 01/28/18 Master Henley III, MD [address] [place] [address] Consulting Physician Rheumatology 01/28/18 01/26/24 Dominic Young MD [address] [place] [address] Consulting Physician Cardiology 01/04/20 Carlos Hernandez MD [address] [place] [address] Consulting Physician Rheumatology 01/27/24 documented as of this encounter
--- OUTSIDE RECORDS SUMMARY | 2025-06-11 11:44 | XMS_ITS | Encounter Summary ---
Author Organization [employer] Address 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 Gender Identity Not on file Sexual Orientation Not on file documented as of this encounter Plan of Treatment Upcoming Encounters Date Type Department Care Team (Late st Contact Info) Description 07/11/2025 4:15 PM CDT Telephone Check Up [facility] Vascular At [address] [place] [address] Dominic Young MD [address] [place] [address] [address] [place] [address] 07/20/2025 8:00 AM CDT Procedure visit [facility] AT [address] [place] [address] 07/26/2025 2:00 PM CDT Office Visit [facility]ASC[facility] EP AT [address] [place] [address] Cuauhtemoc Saez DNP [address] [place] [address] [address] [place] [address] 08/08/2025 12:00 PM CDT Office Visit [facility] Vascular At [address] [place] [address] Dominic Young MD [address] [place] [address] [address] [place] [address] documented as of this encounter Visit Diagnoses Not on filedocumented in this encounter Care Teams Manager Validation Relationship Specialty Start Date End Date Eric Pretty MD [address] [place] [address] PCP - General Internal Medicine 11/24/19 documented as of this encounter
--- OUTSIDE RECORDS SUMMARY | 2025-06-11 11:44 | XMS_ITS | Encounter Summary ---
Author Organization [facility] Healthcare Address [address] [place] [address] Care Team Providers Care Prefabricated Houses Trimmer Name Role Phone Eric Pretty MD Primary Care Provider [phone] Dominic Young MD Unavailable [phone] Carlos Hernandez MD Unavailable [phone] Encounter Details Date Type Department Care Team (Late st Contact Info) Description 07/22/[address] 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 documented as of this encounter Procedures Procedure Name Priority Date/Time Associated Diagnosis Comments CARDIOLOGY DOCUMENT SCAN 07/22/2024 documented in this encounter Results * Cardiology Document Scan (07/22/2024) Anatomical Region Laterality Modality Other us Provider Scanning CV CARDIAC SERVICES PROCEDURES Final Result documented in this encounter Visit Diagnoses Not on filedocumented in this encounter Care Teams Prefabricated Houses Trimmer Relationship Specialty Start Date End Date Eric Pretty MD [address] [place] [address] PCP - General Internal Medicine 01/28/18 Dominic Young MD [address] [facility] [address] [place] [address] Consulting Physician Cardiology 01/04/20 Carlos Hernandez MD [address] [place] [address] Consulting Physician Rheumatology 01/27/24 documented as of this encounter
[2025-06-11 11:47] LABS: Alanine Aminotransferase 21 U/L (6-50); Albumin Level 3.8 g/dL (3.5-5.1); Alkaline Phosphatase 77 U/L (38-126); Anion Gap 4 mmol/L (4-12); Aspartate Amino Transferase 28 U/L (17-59); Bilirubin,Total 0.8 mg/dL (0.2-1.3); Blood Urea Nitrogen 17 mg/dL (9-20); Calcium 8.9 mg/dL (8.4-10.2); Carbon Dioxide 30 mmol/L (22-30); Chloride 98 mmol/L (98-107); Estimated CRCL calculation 66 ml/min; Estimated Glomerular Filt Rate > 60; Glucose 212 mg/dL (65-110); Lipase 33 U/L (23-300); Potassium 4.0 mmol/L (3.4-5.0); Sodium 132 mmol/L (137-145); Total Protein 6.5 g/dL (6.3-8.2)
[2025-06-11 11:57] LABS: NT Pro B Type Natriuretic Pept 1230 pg/mL (19.9-100); Troponin I < 0.012 ng/mL (0.000-0.034)
--- NOTE | 2025-06-11 11:59 | ED_ITS ---
HPI - Chest Pain General Chief Complaint: Chest Pain Stated Complaint: chest pain Time Seen by Provider: 06/11/25 11:02 Source: patient, EMS, RN notes reviewed and old records reviewed Mode of arrival: EMS Limitations: no limitations History of Present Illness HPI narrative: This is a 79 year old male with history of DM,CAD, pacemaker who presents for evaluation of chest pain. He states this morning he was resting and developed chest pain. He describes right chest pain that radiates to the left. He states that pain has been constant and he is unsure of any exacerbating factors. He denies associated nausea, vomiting, cough, dizziness, or shortness of breath. He also denies any worsening shortness of breath. Related Data Home Medications ?Medication ?Instructions ?Recorded ?Confirmed ?Last Taken ?Type clopidogrel 75 mg tablet 75 mg PO DAILY 06/06/22 06/11/25 06/11/25 09:00 History 75 mg ferrous sulfate 325 mg (65 mg 325 mg PO DAILY 10/23/23 06/11/25 06/11/25 09:00 History iron) tablet 325 mg folic acid 1 mg tablet 1 mg PO DAILY 01/06/24 06/11/25 06/11/25 09:00 History 1 mg methotrexate sodium 2.5 mg tablet 15 mg PO WEEKLY 01/06/24 06/11/25 06/11/25 09:00 History 10 mg prednisone 5 mg tablet 5 mg PO Q12H 11/16/24 06/11/25 06/11/25 08:00 History 5 mg apixaban 5 mg tablet (Eliquis) 5 mg PO BID 05/06/25 06/11/25 06/11/25 09:00 History 5 mg cholecalciferol (vitamin D3) 25 25 mcg PO DAILY 05/06/25 06/11/25 06/11/25 09:00 History mcg (1,000 unit) tablet 25 mcg empagliflozin 25 mg tablet 25 mg PO DAILY 05/06/25 06/11/25 06/11/25 09:00 History (Jardiance) 25 mg gabapentin 300 mg capsule 300 mg PO TID 05/06/25 06/11/25 06/11/25 09:00 History 300 mg metoprolol succinate 25 mg 12.5 mg PO DAILY 05/06/25 06/11/25 06/11/25 09:00 History tablet,extended release 24 hr 25 mg nitroglycerin 0.6 mg sublingual 0.6 mg sublingual Q5-15M PRN chest 05/06/25 06/11/25 Unknown History tablet pain spironolactone 25 mg tablet 12.5 mg PO DAILY 06/11/25 06/11/25 06/11/25 09:00 History 12.5 mg Allergies Allergy/AdvReac Type Severity Reaction Status Date / Time alprazolam (From Xanax) Allergy Intermediate Itching Verified 06/11/25 11:16 fentanyl Allergy Intermediate Itching Verified 06/11/25 11:16 tramadol Allergy Intermediate Itching Verified 06/11/25 11:16 [facility] Past Medical History Medical History Pneumonia Nasal drainage Groin rash Cellulitis DVT (deep venous thrombosis) Left groin mass Sinus drainage Tinea Cough URI (upper respiratory infection) Inguinal hernia Head injury Hx of colonic polyps Colon cancer screening Muscle weakness (~11/2022) Sick sinus syndrome Fall Mastodynia of left breast Left anterior shoulder pain Costochondritis Swelling of joint, knee, left Swelling of left lower extremity Physical debility Hospital discharge follow-up A-fib Rupture of left Achilles tendon SOB (shortness of breath) Tear of left rotator cuff Type 2 diabetes mellitus with diabetic polyneuropathy, 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, with long-term current use of insulin Unspecified place in other non-institutional residence as the place of occurrence of the external cause Neck pain Changing skin lesion Vision changes Chronic low back pain Left knee pain Claustrophobia Diarrhea Post-phlebitic syndrome History of myocardial infarction History of blood clots Toe pain, right Bruise of toe Toe infection Swelling of left hand Pilonidal cyst Obstructive sleep apnea Intolerant to CPAP Chronic orthostatic hypotension Essential tremor BMI 35.0-35.9,adult Back pain with history of spinal surgery ASHD (arteriosclerotic heart disease) Tobacco abuse Trauma Non-healing skin lesion C. difficile diarrhea Vitamin D deficiency Paige-rectal abscess Impaired functional mobility, balance, gait, and endurance On long-term drug therapy RBBB Osteoarthritis Chronic anemia Chronic, continuous use of opioids Due to chronic lumbago. Dyslipidemia Benign prostatic hyperplasia Colon polyps Coronary artery disease With history of stent to the mid LAD in November 2015. Cardiac catheterization in May 2017 showed a patent LAD stent and 90% ostial stenosis in a 3rd diagonal, which was a small vessel and jailed by previous stent. No other high-grade lesions were noted. Reportedly, he had a stent in November 2019 done at [facility] in [place]. Insulin dependent type 2 diabetes mellitus With diabetic peripheral neuropathy. Hemoglobin A1c was 8.3% in March 2021 Depression with anxiety Prostate CA Status post external radiation. GERD (gastroesophageal reflux disease) Rheumatoid arthritis Surgical History Surgical History Pacemaker placed 12/14/2021 History of removal of pigmented skin lesion Status post cataract extraction of both eyes with insertion of intraocular lens S/P tooth extraction Status post lumbar spine operation X3 most recently December 2020 Status post tonsillectomy Status post inguinal hernia repair Status post cholecystectomy Status post vasectomy Hx of heart artery stent X3 Family History Family History Father Asthma Family history of cardiovascular disease Mother Family history of cardiovascular disease Family history of arthritis Family history of Alzheimer's disease Family history of malignant neoplasm of kidney Other Diabetes mellitus Hypertension Social History Social History Social History: He lives in [place] with his of 55 years. They have 1 son. He quit smoking cigarettes in February of 1989. Over the last several years he started to smoke a pipe, typically 5 to 6 times per day. He drinks perhaps 1 alcoholic beverage a month. No drug use. He designates his , Monika, as his surrogate decision maker. He is listed as a full code. Smoking packs per day: 0.5 Smoking cigarettes per day: 10.0 Years smoked: 30 Smoking pack-years: 15.00 Smoking status: Current every day smoker Tobacco type: pipe Additional smoking assessment comments: CURRENTLY SMOKES A PIPE Alcohol intake: never Drinks per week: 1 Alcohol use details: occasional beer while cooking Substance use: never Substance use type: does not use Do You Feel Safe in your Home?: Yes Lack of Transportation: No Lack of Food: Never True Current Housing: I Have Housing Concerned About Future Housing: No Difficulty Paying Gas/Electric Bills: No Difficulty Paying for Meds: No Currently Unemployed: No Education: Decline to Answer Difficulty w/ Childcare or Family Care: No Living arrangements: with family Additional living arrangements comments: patient lives with Occupation/Education: retired Gender identity (if verbalized by the patient): Male Sexual Orientation (if Verbalized by the Patient): Straight or Heterosexual Spiritual care concerns: No Agree to blood products: Yes Course Reevaluation(s) Reevaluation #1: PAtient states that his chest pain has resolved after receiving second dose of morphine. I discussed troponin is negative. Given his heart disease I recommend obs to rule out SD Date: 06/11/25 Time: 14:00 Consultations Consultation #1: I spoke with Lizet and she accepts patient to hospitalist service Date: 06/11/25 Time: 13:34 Consultation #2: I spoke with Dr. Valdes and he agrees cardiology with consult Date: 06/11/25 Time: 14:34 Vital Signs Vital signs: Vital Signs Temperature 97.9 F 06/11/25 11:04 Pulse Rate 80 06/11/25 11:04 Respiratory Rate 16 06/11/25 11:04 Blood Pressure 136/71 06/11/25 11:04 Pulse Oximetry 94 06/11/25 11:04 Oxygen Delivery Room Air 06/11/25 11:04 Temperature 97.9 F 06/11/25 20:00 Pulse Rate 80 06/11/25 20:00 Respiratory Rate 18 06/11/25 20:00 Blood Pressure 139/74 06/11/25 20:00 Pulse Oximetry 96 06/11/25 20:00 Oxygen Delivery Room Air 06/11/25 16:00 MDM - Chest Pain Differential Diagnosis Differential diagnosis: Likely fracture of rib, pneumothorax, stable angina, atypical chest pain, costochondritis, chest pain and other (PE, aortic dissection) Medical Records Data Attestation: I reviewed the patient's medical records. Lab Data Attestation: I reviewed the patient's lab results. 06/11/25 11:20 06/11/25 11:20 Labs: Lab Results 06/11/25 Range/Units 11:20 WBC 5.2 (4.5-10.0) K/mm3 RBC 4.24 L (4.6-6.20) M/mm3 Hgb 12.8 L (14.0-18.0) g/dL Hct 40.2 L (42.0-52.0) % MCV 94.8 (80-100) fl MCH 30.2 (26-34) pg MCHC 31.8 L (32-36) g/dl RDW 16.6 H (11.5-14.5) % Plt Count 255 (150-375) k/mm3 MPV 9.5 (7.4-10.4) fl Immature Gran % (Auto) 0.6 H (0-0.5) % Neut % (Auto) 73.1 (45.5-73.1) % Lymph % (Auto) 12.1 L (18.3-44.2) % Sol[place] % (Auto) 11.9 H (2.6-8.5) % Eos % (Auto) 1.9 (0-4.4) % Baso % (Auto) 0.4 (0.2-1.2) % Lymph # (Auto) 0.63 L (0.9-3.2) K/mm3 Sol[place] # (Auto) 0.6 (0.1-0.6) K/mm3 Eos # (Auto) 0.1 (0-0.3) K/mm3 Baso # (Auto) 0.0 (0.0-0.1) K/mm3 Abs Immat Gran (auto) 0.03 (0.00-0.031) K/mm3 Absolute Neuts (auto) 3.8 (1.3-6.7) K/mm3 Absolute Nucleated RBC 0.000 (0.0-0.012) K/mm3 Nucleated RBC % 0.0 (0.0-0.2) % PT 14.6 (11.1-14.7) Seconds INR 1.1 APTT 30.0 (22.3-36.8) Seconds Sodium 132 L (137-145) mmol/L Potassium 4.0 (3.4-5.0) mmol/L Chloride 98 (98-107) mmol/L Carbon Dioxide 30 (22-30) mmol/L Anion Gap 4 (4-12) mmol/L BUN 17 (9-20) mg/dL Creatinine 1.08 (0.7-1.3) mg/dL Estim Creat Clear Calc 66 ml/min Estimated GFR > 60 (59 - ) Glucose 212 H (65-110) mg/dL Calcium 8.9 (8.4-10.2) mg/dL Total Bilirubin 0.8 (0.2-1.3) mg/dL AST 28 (17-59) U/L ALT 21 (6-50) U/L Alkaline Phosphatase 77 (38-126) U/L Troponin I < 0.012 (0.000-0.034) ng/mL NT-Pro-B Natriuret Pep 1230 H (19.9-100) pg/mL Total Protein 6.5 (6.3-8.2) g/dL Albumin 3.8 (3.5-5.1) g/dL Lipase 33 (23-300) U/L Imaging Data Radiologist's impression: ITS Impressions Chest X-Ray 06/11/25 11:38 IMPRESSION: Cardiomegaly, without focal infiltrate or effusion. Chest CTA 06/11/25 13:17 IMPRESSION: No pulmonary embolus. No thoracic aortic dissection. Air opacification of the minimally distended esophagus, a nonspecific finding. ECG Data EKG #1: Attestation: I personally reviewed and interpreted this ECG as follows: ECG completion date: 06/11/25 ECG completion time: 14:16 Interpretation: paced rhythm EKG Interpretation: normal rate Discharge Plan Discharge Clinical Impression: Chest pain Patient Disposition: Still a Patient Condition: Stable Quality HEART score for chest pain patients History: slightly suspicious ECG: non specific repolarization disturbance/LBTB/PM Age: > or = to 65 years Risk factors: > or = to 3 risk factors of atherosclerotic disease Troponin: < or = to 1x normal limit Heart score: 5
[2025-06-11] MEDS: MORPHINE SULFATE (*CRX) 4 MG/ML INJ IV PUSH (12:51)
--- NOTE | 2025-06-11 13:59 | ECG_ITS ---
Test Date: 2025-06-11 14:16:55 Measurements Intervals [place] Rate: 80 P: 0 KS: 0 QRS: 183 QRSD: 190 T: -10 QT: 487 QTc: 562 Interpretive Statements ELECTRONIC VENTRICULAR PACEMAKER ABNORMAL RHYTHM ECG Compared to ECG 06/11/2025 11:08:26 No significant changes Electronically Signed On 06-12-2025 14:11:57 CDT by Farhad Valdes M.D.
--- NOTE | 2025-06-11 14:01 | P.HP_ITS ---
H&P: HPI History of Present Illness Date/Time: 06/11/25 14:01 Chief Complaint: Chest pain Narrative: 79-year-old male past medical history of diabetes type 2, rheumatoid arthritis chronic anemia DVT, CABG and pacemaker presents the hospital chest pain. Patient states that he was at rest today when he had chest pain. He states he goes from right chest the left chest. He does not know of anything that made it better or worse. Patient denies nausea or vomiting. Lab work in the ED shows hemoglobin 12.8, sodium of 132, glucose 212, 1st troponin negative, BNP 1230, chest CTA negative for acute process. Review of Systems Review of Systems: 12 systems were reviewed and are negativ e except for as per HPI. [facility] Past Medical History Medical History Pneumonia Nasal drainage Groin rash Cellulitis DVT (deep venous thrombosis) Left groin mass Sinus drainage Tinea Cough URI (upper respiratory infection) Inguinal hernia Head injury Hx of colonic polyps Colon cancer screening Muscle weakness (~11/2022) Sick sinus syndrome Fall Mastodynia of left breast Left anterior shoulder pain Costochondritis Swelling of joint, knee, left Swelling of left lower extremity Physical debility Hospital discharge follow-up A-fib Rupture of left Achilles tendon SOB (shortness of breath) Tear of left rotator cuff Type 2 diabetes mellitus with diabetic polyneuropathy, 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, with long-term current use of insulin Unspecified place in other non-institutional residence as the place of oc currence of the external cause Neck pain Changing skin lesion Vision changes Chronic low back pain Left knee pain Claustrophobia Diarrhea Post-phlebitic syndrome History of myocardial infarction History of blood clots Toe pain, right Bruise of toe Toe infection Swelling of left hand Pilonidal cyst Obstructive sleep apnea Intolerant to CPAP Chronic orthostatic hypotension Essential tremor BMI 35.0-35.9,adult Back pain with history of spinal surgery ASHD (arteriosclerotic heart disease) Tobacco abuse Trauma Non-healing skin lesion C. difficile diarrhea Vitamin D deficiency Paige-rectal abscess Impaired functional mobility, balance, gait, and endurance On intermediate drug therapy RBBB Osteoarthritis Chronic anemia Chronic, continuous use of opioids Due to chronic lumbago. Dyslipidemia Benign prostatic hyperplasia Colon polyps Coronary artery disease With history of stent to the mid LAD in November 2015. Cardiac catheterization in May 2017 showed a patent LAD stent and 90% ostial stenosis in a 3rd diagonal, which was a small vessel and jailed by previous stent. No other high-grade lesions were noted. Reportedly, he had a stent in November 2019 done at [facility] in [place]. Insulin dependent type 2 diabetes mellitus With diabetic peripheral neuropathy. Hemoglobin A1c was 8.3% in March 2021 Depression with anxiety Prostate CA Status post external radiation. GERD (gastroesophageal reflux disease) Rheumatoid arthritis Surgical History Surgical History Pacemaker placed 12/14/2021 History of removal of pigmented skin lesion Status post cataract extraction of both eyes with insertion of intraocular lens S/P tooth extraction Status post lumbar spine operation X3 most recently December 2020 Status post tonsillectomy Status post inguinal hernia repair Status post cholecystectomy Status post vasectomy Hx of heart artery stent X3 Family History Family History Father Asthma Family history of cardiovascular disease Mother Family history of cardiovascular disease Family history of arthritis Family history of Alzheimer's disease Family history of malignant neoplasm of kidney Other Diabetes mellitus Hypertension Social History Social History Social History: He lives in [place] with his of 55 years. They have 1 son. He quit smoking cigarettes in February of 1989. Over the last several years he started to smoke a pipe, typically 5 to 6 times per day. He drinks perhaps 1 alcoholic beverage a month. No drug use. He designates his , Monika, as his surrogate decision maker. He is listed as a full code. Smoking packs per day: 0.5 Smoking cigarettes per day: 10.0 Years smoked: 30 Smoking pack-years: 15.00 Smoking status: Current every day smoker Tobacco type: pipe Additional smoking assessment comments: CURRENTLY SMOKES A PIPE Alcohol intake: never Drinks per week: 1 Alcohol use details: occasional beer while cooking Substance use: never Substance use type: does not use Do You Feel Safe in your Home?: Yes Lack of Transportation: No Lack of Food: Never True Current Housing: I Have Housing Concerned About Future Housing: No Difficulty Paying Gas/Electric Bills: No Difficulty Paying for Meds: No Currently Unemployed: No Education: Decline to Answer Difficulty w/ Childcare or Family Care: No Living arrangements: with family Additional living arrangements comments: patient lives with Occupation/Education: retired Gender identity (if verbalized by the patient): Male Sexual Orientation (if Verbalized by the Patient): Straight or Heterosexual Spiritual care concerns: No Agree to blood products: Yes Meds Home Medications and Allergies Home Medications ?Medication ?Instructions ?Recorded ?Confirmed ?Type clopidogrel 75 mg tablet 75 mg PO DAILY 06/06/22 06/11/25 History Home Nebulizer Machine #1 device 09/22/23 06/11/25 Rx ferrous sulfate 325 mg (65 mg 325 mg PO DAILY 10/23/23 06/11/25 History iron) tablet folic acid 1 mg tablet 1 mg PO DAILY 01/06/24 06/11/25 History methotrexate sodium 2.5 mg tablet 15 mg PO WEEKLY 01/06/24 06/11/25 History pen needle, diabetic 32 gauge x #300 ea 11/04/24 06/11/25 Rx /32 (BD Ultra-Fine Gabrielle Pen Needle) prednisone 5 mg tablet 5 mg PO Q12H 11/16/24 06/11/25 History pantoprazole 40 mg tablet,delayed See Rx Instructions .Route 12/06/24 06/11/25 Rx release .COMPLEX #90 tabs insulin regular hum U-500 conc 500 See Rx Instructions subcut DAILY 01/19/25 06/11/25 Rx unit/mL(3 mL) subcut pen (Humulin 90 days #27 mL R U-500 (Conc) Insulin Kwikpen) atorvastatin 40 mg tablet See Rx Instructions .Route 03/21/25 06/11/25 Rx .COMPLEX #90 tabs apixaban 5 mg tablet (Eliquis) 5 mg PO BID 05/06/25 06/11/25 History cholecalciferol (vitamin D3) 25 25 mcg PO DAILY 05/06/25 06/11/25 History mcg (1,000 unit) tablet empagliflozin 25 mg tablet 25 mg PO DAILY 05/06/25 06/11/25 History (Jardiance) gabapentin 300 mg capsule 300 mg PO TID 05/06/25 06/11/25 History metoprolol succinate 25 mg 12.5 mg PO DAILY 05/06/25 06/11/25 History tablet,extended release 24 hr nitroglycerin 0.6 mg sublingual 0.6 mg sublingual Q5-15M PRN chest 05/06/25 06/11/25 History tablet pain buspirone 10 mg tablet 10 mg PO TID #90 tabs 06/01/25 06/11/25 Rx sertraline 100 mg tablet 150 mg (1.5 x 100 mg) PO DAILY 06/01/25 06/11/25 Rx #135 tabs spironolactone 25 mg tablet 12.5 mg PO DAILY 06/11/25 06/11/25 History Allergies Allergy/AdvReac Type Severity Reaction Status Date / Time alprazolam (From Xanax) Allergy Intermediate Itching Verified 06/11/25 11:16 fentanyl Allergy Intermediate Itching Verified 06/11/25 11:16 tramadol Allergy Intermediate Itching Verified 06/11/25 11:16 Vital Signs Vital Signs - 24 hr 06/11/25 11:04 06/11/25 11:11 06/11/25 11:11 Temperature 97.9 F Pulse Rate 80 80 Respiratory Rate 16 Blood Pressure 136/71 Pulse Oximetry 94 98 Oxygen Delivery Room Air Room Air 06/11/25 12:55 Temperature Pulse Rate 80 Respiratory Rate 16 Blood Pressure 132/76 Pulse Oximetry 97 Oxygen Delivery Exam Narrative: General: well appearing, appears stated age. HEENT: normocephalic, atraumatic. Mucous membranes moist. EOMI, PERRLA, bilateral sclera anicteric, no conjunctival injection. Neck supple without JVD, lymphadenopathy, or bruit. Respiratory: clear to ascultation bilaterally. No rales/rhonic/wheezes. Cardiovascular: Regular rate and rhythm, normal S1-S2 upon ascultation. No murm urs, rubs, or clicks. PMI is nondisplaced, capillary refill less than 3 second. Abdomen: Soft, round, no pulsatile masses, nondistended and nontender. No rebound, no guarding. No CVA tenderness, no hepatosplenomegaly. Bowel sounds present to all four quadrants. No high pitch or tinkling sounds, resonant to percussion. Extremities: No cyanosis, clubbing, or edema present. Pulses are palpable 2/2. Active ROM to all four extremities. Neuro: Alert and orientated x 4. PERRLA. Cranial nerves 2-12 intact without focal deficit. Skin: Warm, dry, and intact, without rash, erythema, or lesion. Psych: pleasant, cooperative, normal speech, normal affect, no hallucinations, no dysarthia H&P: Results Labs Labs: Short CBC 06/11/25 Range/Units 11:20 WBC 5.2 (4.5-10.0) K/mm3 Hgb 12.8 L (14.0-18.0) g/dL Hct 40.2 L (42.0-52.0) % Plt Count 255 (150-375) k/mm3 BMP 06/11/25 11:20 Sodium 132 L Potassium 4.0 Chloride 98 Carbon Dioxide 30 BUN 17 Creatinine 1.08 Glucose 212 H Calcium 8.9 Cardiac Enzymes 06/11/25 Range/Units 11:20 Troponin I < 0.012 (0.000-0.034) ng/mL Liver Function 06/11/25 Range/Units 11:20 Total Bilirubin 0.8 (0.2-1.3) mg/dL AST 28 (17-59) U/L ALT 21 (6-50) U/L Alkaline Phosphatase 77 (38-126) U/L Albumin 3.8 (3.5-5.1) g/dL Assessment and Plan Assessment and plan (1) Chest pain: Qualifiers: Chest pain type: other chest pain Qualified Code(s): R07.89 - Other chest pain Code(s): R07.9 - Chest pain, unspecified Status: Acute Assessment and Plan: Admit to IMU Telemetry monitoring Trend troponins EKG Aspirin Nitro Eliquis Per cardiology patient may be discharged if he has serial negative troponin a follow-up outpatient with stress testing or may stay in the hospital for Friday for echocardiogram and stress test. (2) Type 2 diabetes mellitus with diabetic polyneuropathy, with long-term current use of insulin: Code(s): E11.42 - Type 2 diabetes mellitus with diabetic polyneuropathy; Z79.4 - exterminator (current) use of insulin Status: Acute Assessment and Plan: Jason treviño HS SSI Quality VTE Prophylaxis VTE prophylaxis: mechanical ordered and pharmacologic ordered Hospitalist [facility] Advance Care Plan I have confirmed that the patient's Advanced Care Plan is present, code status is documented, or surrogate decision maker is listed in patient medical record.: Yes Medication Reconciliation I have utilized all available resources to obtain, update and review the patients current medications (includes all prescriptions, OTC, herbals, cannabis, and nutritional supplements).: Yes
[2025-06-11] MEDS: ASPIRIN 325 MG ENTERIC TABLET PO (14:37)
[2025-06-11 14:47] LABS: Troponin I < 0.012 ng/mL (0.000-0.034)
--- NOTE | 2025-06-11 15:00 | ADMGEN ---
This patient, Kameron Man, was admitted to IMU Room 209-01 @ 1500. Patient/family oriented to hospital policies and general routines including ID bracelet, bed and alarms, visiting hours, pain management, procedures, bathroom and other care routines, personal items, smoking policy, room service/diet, and visiting hours. Information on how to activate the Rapid Response Team has been discussed. Patient/Family are encouraged to report perceived risks to care and to ask questions if they do not understand what they are told or what they should do.
--- NOTE | 2025-06-11 17:27 | P.CONCA_ITS ---
Assessment and Plan Assessment and plan (1) Chest pain: Qualifiers: Chest pain type: other chest pain Qualified Code(s): R07.89 - Other chest pain Code(s): R07.9 - Chest pain, unspecified Status: Acute (2) A-fib: Qualifiers: Atrial fibrillation type: unspecified Qualified Code(s): I48.91 - Unspecified atrial fibrillation Code(s): I48.91 - Unspecified atrial fibrillation Status: Acute (3) Chronic systolic heart failure: Code(s): I50.22 - Chronic systolic (congestive) heart failure Status: Acute Plan 79-year-old man with CAD status post PCI to LAD (11/2015), chronic systolic heart failure status post SECRETARY-D, paroxysmal atrial fibrillation on Eliquis presented with chest discomfort Chest discomfort -if he has 3 negative troponins, he can follow up as outpatient internal control consultant -we have discussed that he can is remain in the hospital until Friday for a nuclear stress test versus discharge the following up with his outpatient internal control consultant -he and his son has decided that they would prefer the follow-up with her outpatient internal control consultant -it was discussed with the patient and son that should his pain reoccur he should return to the emergency room and the plan will be for cardiac catheterization at that time Chronic systolic heart failure status post SECRETARY-D -recommend resuming his home guideline directed medical therapy -euvolemic Paroxysmal atrial fibrillation -on Eliquis 5 mg p.o. b.i.d. Cardiology will sign off. Please call with additional questions. History of Present Illness History of Present Illness Consult date/time: 06/11/25 17:27 Requesting physician: Lizet Tracy APRN Consult reason: chest pain Reason For Visit: Chest pain Narrative: 79-year-old man with CAD status post PCI to LAD (11/2015), chronic systolic heart failure status post SECRETARY-D, paroxysmal atrial fibrillation on Eliquis presented with chest discomfort. Described as a sharp chest pain that starts on the right side with radiation to the left that occurred while he was sitting and watching television. The pain continued for about an hour after which he became dullness and has since resolved. Currently without any chest discomfort or shortness of breath. He ambulates within the confines of his home and is able to ambulate 1 flight of stairs. He does have occasional shortness of breath with 1 flight of stairs activity. Denies any syncopal events. Sees internal control consultant over at [facility] and has not had any recent cardiac workup. Review of Systems 2 Cardiovascular: Cardiovascular: Reports as per HPI Respiratory: Respiratory: Reports as per HPI [facility] Past Medical History Medical History Pneumonia Nasal drainage Groin rash Cellulitis DVT (deep venous thrombosis) Left groin mass Sinus drainage Tinea Cough URI (upper respiratory infection) Inguinal hernia Head injury Hx of colonic polyps Colon cancer screening Muscle weakness (~11/2022) Sick sinus syndrome Fall Mastodynia of left breast Left anterior shoulder pain Costochondritis Swelling of joint, knee, left Swelling of left lower extremity Physical debility Hospital discharge follow-up A-fib Rupture of left Achilles tendon SOB (shortness of breath) Tear of left rotator cuff Type 2 diabetes mellitus with diabetic polyneuropathy, 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, with long-term current use of insulin Unspecified place in other non-institutional residence as the place of occurrence of the external cause Neck pain Changing skin lesion Vision changes Chronic low back pain Left knee pain Claustrophobia Diarrhea Post-phlebitic syndrome History of myocardial infarction History of blood clots Toe pain, right Bruise of toe Toe infection Swelling of left hand Pilonidal cyst Obstructive sleep apnea Intolerant to CPAP Chronic orthostatic hypotension Essential tremor BMI 35.0-35.9,adult Back pain with history of spinal surgery ASHD (arteriosclerotic heart disease) Tobacco abuse Trauma Non-healing skin lesion C. difficile diarrhea Vitamin D deficiency Paige-rectal abscess Impaired functional mobility, balance, gait, and endurance On salvage determiner drug therapy RBBB Osteoarthritis Chronic anemia Chronic, continuous use of opioids Due to chronic lumbago. Dyslipidemia Benign prostatic hyperplasia Colon polyps Coronary artery disease With history of stent to the mid LAD in November 2015. Cardiac catheterization in May 2017 showed a patent LAD stent and 90% ostial stenosis in a 3rd diagonal, which was a small vessel and jailed by previous stent. No other high-grade lesions were noted. Reportedly, he had a stent in November 2019 done at [facility] in [place]. Insulin dependent type 2 diabetes mellitus With diabetic peripheral neuropathy. Hemoglobin A1c was 8.3% in March 2021 Depression with anxiety Prostate CA Status post external radiation. GERD (gastroesophageal reflux disease) Rheumatoid arthritis Surgical History Surgical History Pacemaker placed 12/14/2021 History of removal of pigmented skin lesion Status post cataract extraction of both eyes with insertion of intraocular lens S/P tooth extraction Status post lumbar spine operation X3 most recently December 2020 Status post tonsillectomy Status post inguinal hernia repair Status post cholecystectomy Status post vasectomy Hx of heart artery stent X3 Family History Family History Father Asthma Family history of cardiovascular disease Mother Family history of cardiovascular disease Family history of arthritis Family history of Alzheimer's disease Family history of malignant neoplasm of kidney Other Diabetes mellitus Hypertension Social History Social History Social History: He lives in [place] with his of 55 years. They have 1 son. He quit smoking cigarettes in February of 1989. Over the last several years he started to smoke a pipe, typically 5 to 6 times per day. He drinks perhaps 1 alcoholic beverage a month. No drug use. He designates his , Monika, as his surrogate decision maker. He is listed as a full code. Smoking packs per day: 0.5 Smoking cigarettes per day: 10.0 Years smoked: 30 Smoking pack-years: 15.00 Smoking status: Current every day smoker Tobacco type: pipe Additional smoking assessment comments: CURRENTLY SMOKES A PIPE Alcohol intake: never Drinks per week: 1 Alcohol use details: occasional beer while cooking Substance use: never Substance use type: does not use Do You Feel Safe in your Home?: Yes Lack of Transportation: No Lack of Food: Never True Current Housing: I Have Housing Concerned About Future Housing: No Difficulty Paying Gas/Electric Bills: No Difficulty Paying for Meds: No Currently Unemployed: No Education: Decline to Answer Difficulty w/ Childcare or Family Care: No Living arrangements: with family Additional living arrangements comments: patient lives with Occupation/Education: retired Gender identity (if verbalized by the patient): Male Sexual Orientation (if Verbalized by the Patient): Straight or Heterosexual Spiritual care concerns: No Agree to blood products: Yes Meds Home Medications and Allergies Home Medications ?Medication ?Instructions ?Recorded ?Confirmed ?Type clopidogrel 75 mg tablet 75 mg PO DAILY 06/06/22 06/08/25 History Home Nebulizer Machine #1 device 09/22/23 06/08/25 Rx ferrous sulfate 325 mg (65 mg 325 mg PO DAILY 10/23/23 06/08/25 History iron) tablet folic acid 1 mg tablet 1 mg PO DAILY 01/06/24 06/08/25 History methotrexate sodium 2.5 mg tablet 15 mg PO WEEKLY 01/06/24 06/08/25 History pen needle, diabetic 32 gauge x #300 ea 11/04/24 06/08/25 Rx /32 (BD Ultra-Fine Gabrielle Pen Needle) prednisone 5 mg tablet 5 mg PO DAILY 11/16/24 06/08/25 History pantoprazole 40 mg tablet,delayed See Rx Instructions .Route 12/06/24 06/08/25 Rx release .COMPLEX #90 tabs insulin regular hum U-500 conc 500 See Rx Instructions subcut DAILY 01/19/25 06/08/25 Rx unit/mL(3 mL) subcut pen (Humulin 90 days #27 mL R U-500 (Conc) Insulin Kwikpen) atorvastatin 40 mg tablet See Rx Instructions .Route 03/21/25 06/08/25 Rx .COMPLEX #90 tabs apixaban 5 mg tablet (Eliquis) 5 mg PO BID 05/06/25 06/08/25 History cholecalciferol (vitamin D3) 25 25 mcg PO DAILY 05/06/25 06/08/25 History mcg (1,000 unit) tablet empagliflozin 25 mg tablet 25 mg PO DAILY 05/06/25 06/08/25 History (Jardiance) gabapentin 300 mg capsule 300 mg PO TID 05/06/25 06/08/25 History metoprolol succinate 25 mg 12.5 mg PO DAILY 05/06/25 06/08/25 History tablet,extended release 24 hr nitroglycerin 0.6 mg sublingual 0.6 mg sublingual Q5-15M PRN chest 05/06/25 06/08/25 History tablet pain torsemide 5 mg tablet 5 mg PO DAILY PRN edema 05/06/25 06/08/25 History buspirone 10 mg tablet 10 mg PO TID #90 tabs 06/01/25 06/08/25 Rx sertraline 100 mg tablet 150 mg (1.5 x 100 mg) PO DAILY 06/01/25 06/08/25 Rx #135 tabs Allergies Allergy/AdvReac Type Severity Reaction Status Date / Time alprazolam (From Xanax) Allergy Intermediate Itching Verified 06/11/25 11:16 fentanyl Allergy Intermediate Itching Verified 06/11/25 11:16 tramadol Allergy Intermediate Itching Verified 06/11/25 11:16 Vital Signs Vital Signs - 24 hr 06/11/25 11:04 06/11/25 11:11 06/11/25 11:11 Temperature 36.6 C Pulse Rate 80 80 Respiratory Rate 16 Blood Pressure 136/71 Pulse Oximetry 94 98 Oxygen Delivery Room Air Room Air 06/11/25 12:55 06/11/25 15:00 06/11/25 16:00 Temperature 36.4 C Pulse Rate 80 81 Respiratory Rate 16 20 Blood Pressure 132/76 131/57 L Pulse Oximetry 97 93 93 Oxygen Delivery Room Air 06/11/25 16:00 06/11/25 16:00 Temperature 36.5 C Pulse Rate 81 78 Respiratory Rate 18 Blood Pressure 105/60 Pulse Oximetry 94 Oxygen Delivery Exam 2 Const: General: comfortable HENMT: Mouth: Yes moist mucous membranes Eyes: EOM: EOMs intact bilaterally Neck: Neck: no JVD Resp: Effort & Inspection: normal respiratory effort Auscultation: clear to auscultation bilaterally Cardio: Rate: regular rate Rhythm: regular rhythm Neuro: Speech: normal speech Extrem: General: no pedal edema Results Labs and Meds 06/11/25 11:20 06/11/25 11:20 Lab results: Cardiac Enzymes 06/11/25 06/11/25 Range/Units 11:20 14:09 AST 28 (17-59) U/L Troponin I < 0.012 < 0.012 (0.000-0.034) ng/mL Coagulation 06/11/25 Range/Units 11:20 PT 14.6 (11.1-14.7) Seconds APTT 30.0 (22.3-36.8) Seconds CBC 06/11/25 Range/Units 11:20 WBC 5.2 (4.5-10.0) K/mm3 RBC 4.24 L (4.6-6.20) M/mm3 Hgb 12.8 L (14.0-18.0) g/dL Hct 40.2 L (42.0-52.0) % Plt Count 255 (150-375) k/mm3 Lymph # (Auto) 0.63 L (0.9-3.2) K/mm3 [place] # (Auto) 0.6 (0.1-0.6) K/mm3 Eos # (Auto) 0.1 (0-0.3) K/mm3 Baso # (Auto) 0.0 (0.0-0.1) K/mm3 Comprehensive Metabolic Panel 06/11/25 Range/Units 11:20 Sodium 132 L (137-145) mmol/L Potassium 4.0 (3.4-5.0) mmol/L Chloride 98 (98-107) mmol/L Carbon Dioxide 30 (22-30) mmol/L BUN 17 (9-20) mg/dL Creatinine 1.08 (0.7-1.3) mg/dL Glucose 212 H (65-110) mg/dL Calcium 8.9 (8.4-10.2) mg/dL AST 28 (17-59) U/L ALT 21 (6-50) U/L Alkaline Phosphatase 77 (38-126) U/L Total Protein 6.5 (6.3-8.2) g/dL Albumin 3.8 (3.5-5.1) g/dL Patient Weight 06/11/25 23:59 Weight 120 kg
[2025-06-11 18:05] LABS: Troponin I 0.014 ng/mL (0.000-0.034)
[2025-06-11] MEDS: APIXABAN 5 MG TABLET PO (22:05)
[2025-06-11] MEDS: ATORVASTATIN 40 MG TABLET BY MOUTH (22:05)
[2025-06-12] VITALS (7 sets, daily range): BP systolic 130–148; BP diastolic 74–86; PULSE 50–82; RESP 16–20; TEMP 36.3–36.7; O2SAT 92–97
[2025-06-12 04:14] LABS: Hematocrit 38.1 % (42.0-52.0); Hemoglobin 12.0 g/dL (14.0-18.0); Immature Granulocyte Percent A 0.3 % (0-0.5); Lymphocytes Absolute Auto 0.39 K/mm3 (0.9-3.2); Mean Corpuscular HGB Conc 31.5 g/dl (32-36); Mean Corpuscular Hemoglobin 30.7 pg (26-34); Mean Corpuscular Volume 97.4 fl (80-100); Nucleated Red Blood Cells Absolute Auto 0.000 K/mm3 (0.0-0.012); Nucleated Red Blood Cells Perc 0.0 % (0.0-0.2); Platelet Count Result 221 k/mm3 (150-375); Red Blood Count 3.91 M/mm3 (4.6-6.20); White Blood Count 5.8 K/mm3 (4.5-10.0)
[2025-06-12 04:37] LABS: Anion Gap 4 mmol/L (4-12); Blood Urea Nitrogen 16 mg/dL (9-20); Calcium 8.3 mg/dL (8.4-10.2); Carbon Dioxide 26 mmol/L (22-30); Chloride 99 mmol/L (98-107); Cholesterol 115 mg/dL (0-200); Estimated CRCL calculation 70 ml/min; Estimated Glomerular Filt Rate > 60; Glucose 213 mg/dL (65-110); HDL Direct 43 mg/dL; Potassium 4.5 mmol/L (3.4-5.0); Sodium 129 mmol/L (137-145); Triglycerides 143 mg/dL (<150)
[2025-06-12 04:47] LABS: Troponin I < 0.012 ng/mL (0.000-0.034)
[2025-06-12] MEDS: ONDANSETRON INJ 4 MG/2 ML VIAL IV PUSH (07:27)
--- NOTE | 2025-06-12 08:09 | PM.IMPN ---
Subjective Date/time seen: 06/12/25 08:09 Interval history: Patient is a 79 yo male with PMH of T2DM, RA, chronic anemia, DVT, CAD s/p CABG and PPM who presents with chest pain. Objective Data Vital Signs Vital Signs: Vital Signs - 24 hr 06/11/25 11:04 06/11/25 11:11 06/11/25 11:11 Temperature 97.9 F Pulse Rate 80 80 Respiratory Rate 16 Blood Pressure 136/71 Pulse Oximetry 94 98 Oxygen Delivery Room Air Room Air 06/11/25 12:55 06/11/25 15:00 06/11/25 16:00 Temperature 97.6 F Pulse Rate 80 81 Respiratory Rate 16 20 Blood Pressure 132/76 131/57 L Pulse Oximetry 97 93 93 Oxygen Delivery Room Air 06/11/25 16:00 06/11/25 16:00 06/11/25 18:00 Temperature 97.7 F Pulse Rate 81 78 80 Respiratory Rate 18 Blood Pressure 105/60 Pulse Oximetry 94 Oxygen Delivery 06/11/25 20:00 06/11/25 20:00 06/11/25 20:00 Temperature 97.9 F Pulse Rate 80 80 Respiratory Rate 18 Blood Pressure 139/74 Pulse Oximetry 96 Oxygen Delivery Room Air 06/11/25 22:00 06/11/25 23:38 06/12/25 00:00 Temperature 98.1 F Pulse Rate 80 80 80 Respiratory Rate 14 Blood Pressure 130/74 Pulse Oximetry 94 Oxygen Delivery 06/12/25 00:00 06/12/25 02:00 06/12/25 04:00 Temperature 98.0 F Pulse Rate 50 L 80 Respiratory Rate 16 Blood Pressure 137/75 Pulse Oximetry 94 Oxygen Delivery Room Air 06/12/25 04:00 06/12/25 04:00 06/12/25 06:00 Temperature Pulse Rate 80 71 Respiratory Rate Blood Pressure Pulse Oximetry Oxygen Delivery Room Air 06/12/25 08:00 Temperature 97.4 F L Pulse Rate 80 Respiratory Rate 18 Blood Pressure 130/74 Pulse Oximetry 97 Oxygen Delivery Intake/Output Intake/Output: Intake & Output 06/09/25 06/10/25 06/11/25 06/12/25 23:59 23:59 23:59 23:59 Intake Total 920 120 Balance 920 120 Meds/Results Medications: Active Medications Generic Name Dose Route Start Last Admin Trade Name Freq PRN Reason Stop Dose Admin Acetaminophen 650 mg 06/11/25 14:05 Acetaminophen 325 Mg Tablet PO Q4H PRN Mild Pain (1-3) or Fever Apixaban 5 mg 06/12/25 09:00 Apixaban 5 Mg Tablet PO BID [facility] Aspirin 81 mg 06/12/25 09:00 Aspirin 81 Mg Enteric Tablet PO DAILY [facility] Atorvastatin Calcium 40 mg 06/11/25 21:00 06/11/25 22:05 Atorvastatin 40 Mg Tablet BY MOUTH 40 mg HS [facility] Administration Buspirone HCl 10 mg 06/12/25 09:00 Buspirone Hcl 10 Mg Tablet PO TID [facility] Clopidogrel Bisulfate 75 mg 06/12/25 09:00 Clopidogrel Bisulfate 75 Mg Tablet PO DAILY [facility] Dextrose 12.5 gm 06/11/25 22:29 Dextrose 50% 25 Gm/50 Ml Syringe IV PUSH PRN PRN Hypoglycemia Protocol Empagliflozin 25 mg 06/12/25 09:00 Empagliflozin 25 Mg Tablet PO DAILY [facility] Ferrous Sulfate 325 mg 06/12/25 09:00 Ferrous Sulfate [address] BY MOUTH DAILY [facility] Folic Acid 1 mg 06/12/25 09:00 Folic Acid 1 Mg Tablet PO DAILY [facility] Gabapentin 300 mg 06/12/25 09:00 Gabapentin 300 Mg Capsule PO TID [facility] Glucagon 1 mg 06/11/25 22:29 Glucagon For Inj 1 Mg Vial IM PRN PRN Hypoglycemia Protocol Glucose 15 gm 06/11/25 22:29 Glucose Oral Gel 15 Gm Of Glucse In 37.5 Gm Tube PO PRN PRN Hypoglycemia Protocol Dextrose 1,000 mls @ 100 mls/hr 06/11/25 22:29 Dextrose 5% 1,000 Ml IVPB PRN PRN Hypoglycemia Protocol Insulin Aspart 3 - 6 units 06/12/25 08:00 Insulin Aspart (*Bkc) 100 Units/Ml SUB-Q TIDWM [facility] Protocol Insulin Aspart 1 - 3 units 06/12/25 21:00 Insulin Aspart (*Bkc) 100 Units/Ml SUB-Q HS [facility] Protocol Metoprolol Succinate 12.5 mg 06/12/25 09:00 Metoprolol Succinate Ext Rel 12.5 Mg Tabcr PO DAILY [facility] Morphine Sulfate 2 mg 06/11/25 13:40 Morphine Sulfate (*Crx) 2 Mg/Ml Inj IV PUSH Q2H PRN Pain Rated 7-10 Nitroglycerin 0.4 mg 06/11/25 14:05 Nitroglycerin Sl 0.4 Mg Tablet SUBLINGUAL Q5MIN PRN Chest Pain Ondansetron HCl 4 mg 06/11/25 13:40 06/12/25 07:27 Ondansetron Inj 4 Mg/2 Ml Vial IV PUSH 4 mg Q4H PRN Administration Nausea Perflutren Lipid Microsphere 0 ml 06/11/25 14:05 Perflutren Lipid Microspheres 1.5 Ml Vial Diluted To 10 Ml Total Volume IV PUSH 06/14/25 14:05 ONCE PRN adequate visualization Protocol Prednisone 5 mg 06/11/25 21:00 06/11/25 22:05 Prednisone 5 Mg Tablet PO 5 mg Q12HR KAYLEEN Administration Sertraline HCl 150 mg 06/12/25 09:00 Sertraline Hcl 50 Mg Tablet PO DAILY KAYLEEN Spironolactone 12.5 mg 06/12/25 09:00 Spironolactone 12.5 Mg Tablet PO DAILY KAYLEEN Radiology Results: ITS Impressions Chest X-Ray 06/11/25 11:38 IMPRESSION: Cardiomegaly, without focal infiltrate or effusion. Chest CTA 06/11/25 13:17 IMPRESSION: No pulmonary embolus. No thoracic aortic dissection. Air opacification of the minimally distended esophagus, a nonspecific finding. Labs Labs: Laboratory Results - last 24 hr 06/11/25 06/11/25 06/11/25 11:20 14:09 14:26 WBC 5.2 RBC 4.24 L Hgb 12.8 L Hct 40.2 L MCV 94.8 MCH 30.2 MCHC 31.8 L RDW 16.6 H Plt Count 255 MPV 9.5 Immature Gran % (Auto) 0.6 H Neut % (Auto) 73.1 Lymph % (Auto) 12.1 L [place] % (Auto) 11.9 H Eos % (Auto) 1.9 Baso % (Auto) 0.4 Lymph # (Auto) 0.63 L [place] # (Auto) 0.6 Eos # (Auto) 0.1 Baso # (Auto) 0.0 Abs Immat Gran (auto) 0.03 Absolute Neuts (auto) 3.8 Absolute Nucleated RBC 0.000 Nucleated RBC % 0.0 PT 14.6 INR 1.1 APTT 30.0 Sodium 132 L Potassium 4.0 Chloride 98 Carbon Dioxide 30 Anion Gap 4 BUN 17 Creatinine 1.08 Estim Creat Clear Calc 66 Estimated GFR > 60 Glucose 212 H POC Capillary Glucose 112 H Calcium 8.9 Total Bilirubin 0.8 AST 28 ALT 21 Alkaline Phosphatase 77 Troponin I < 0.012 < 0.012 NT-Pro-B Natriuret Pep 1230 H Total Protein 6.5 Albumin 3.8 Triglycerides Cholesterol LDL Cholesterol Direct HDL Direct Lipase 33 06/11/25 06/11/25 06/11/25 16:50 17:17 20:35 WBC RBC Hgb Hct MCV MCH MCHC RDW Plt Count MPV Immature Gran % (Auto) Neut % (Auto) Lymph % (Auto) [place] % (Auto) Eos % (Auto) Baso % (Auto) Lymph # (Auto) [place] # (Auto) Eos # (Auto) Baso # (Auto) Abs Immat Gran (auto) Absolute Neuts (auto) Absolute Nucleated RBC Nucleated RBC % PT INR APTT Sodium Potassium Chloride Carbon Dioxide Anion Gap BUN Creatinine Estim Creat Clear Calc Estimated GFR Glucose POC Capillary Glucose 80 152 H Calcium Total Bilirubin AST ALT Alkaline Phosphatase Troponin I 0.014 NT-Pro-B Natriuret Pep Total Protein Albumin Triglycerides Cholesterol LDL Cholesterol Direct HDL Direct Lipase 06/12/25 06/12/25 04:07 07:20 WBC 5.8 RBC 3.91 L Hgb 12.0 L Hct 38.1 L MCV 97.4 MCH 30.7 MCHC 31.5 L RDW 16.5 H Plt Count 221 MPV 9.2 Immature Gran % (Auto) 0.3 Neut % (Auto) 84.9 H Lymph % (Auto) 6.7 L [place] % (Auto) 7.2 Eos % (Auto) 0.7 Baso % (Auto) 0.2 Lymph # (Auto) 0.39 L [place] # (Auto) 0.4 Eos # (Auto) 0.0 Baso # (Auto) 0.0 Abs Immat Gran (auto) 0.02 Absolute Neuts (auto) 5.0 Absolute Nucleated RBC 0.000 Nucleated RBC % 0.0 PT INR APTT Sodium 129 L Potassium 4.5 Chloride 99 Carbon Dioxide 26 Anion Gap 4 BUN 16 Creatinine 0.99 Estim Creat Clear Calc 70 Estimated GFR > 60 Glucose 213 H POC Capillary Glucose 220 H Calcium 8.3 L Total Bilirubin AST ALT Alkaline Phosphatase Troponin I < 0.012 NT-Pro-B Natriuret Pep Total Protein Albumin Triglycerides 143 Cholesterol 115 LDL Cholesterol Direct 39 HDL Direct 43 Lipase
[2025-06-12] MEDS: INSULIN ASPART (*BKC) 100 UNITS/ML SUB-Q ×2 (09:22→12:16)
[2025-06-12] MEDS: FERROUS SULFATE 325 MG TABLET DR BY MOUTH (09:23)
[2025-06-12] MEDS: GABAPENTIN 300 MG CAPSULE PO ×2 (09:23→12:16)
[2025-06-12] MEDS: APIXABAN 5 MG TABLET PO (09:23)
[2025-06-12] MEDS: FOLIC ACID 1 MG TABLET PO (09:23)
[2025-06-12] MEDS: CLOPIDOGREL BISULFATE 75 MG TABLET PO (09:23)
[2025-06-12] MEDS: ASPIRIN 81 MG ENTERIC TABLET PO (09:23)
[2025-06-12] MEDS: METOPROLOL SUCCINATE EXT REL 12.5 MG TABCR PO (09:23)
[2025-06-12] MEDS: SERTRALINE HCL 50 MG TABLET 150 MG PO (09:24)
[2025-06-12] MEDS: EMPAGLIFLOZIN 25 MG TABLET PO (09:24)
--- NOTE | 2025-06-12 10:21 | ECG_ITS ---
Test Date: 2025-06-12 10:45:59 Measurements Intervals [place] Rate: 80 P: 0 MA: 0 QRS: 184 QRSD: 198 T: -10 QT: 493 QTc: 569 Interpretive Statements ELECTRONIC BIVENTRICULAR PACEMAKER ABNORMAL RHYTHM ECG Compared to ECG 06/11/2025 14:16:55 No significant changes Electronically Signed On 06-12-2025 17:59:43 CDT by Farhad Valdes M.D.
[2025-06-12] MEDS: PROCHLORPERAZINE EDISYLATE 10 MG/2 ML VIAL 5 MG IV PUSH (10:44)
--- NOTE | 2025-06-12 11:00 | PC.NURSE ---
Patient in restroom and complained of not feeling well. Patient's at side. Patient unable to tell nurse what is wrong, why he isn't feeling well. Nurse assisted patient to the bed. Patient continued to complain of not feeling well. Assessment completed. VS 148/86 82 20 97.6 92%RA. Patient complained of being nauseous and needing to have a bowel movement. Patient denied Chest pain, lightheadedness and dizziness. Phoned assessment to provider Almita and order given for Compazine 5mg IV and STAT EKG. Provider states will be to bedside to reevaluate patient. Patient had incontinent episode of stool. Meds given per order and EKG obtained and placed on chart. Patient resting in bed with at bedside. Call light in reach. Patient instructed to not get out of bed without help from nursing staff. Bed alarm on. Will continue to monitor. Jb Marques RN
[2025-06-12 12:28] LABS: Blood Urea Nitrogen 17 mg/dL (9-20); Calcium 8.7 mg/dL (8.4-10.2); Carbon Dioxide 25 mmol/L (22-30); Estimated CRCL calculation 70 ml/min; Estimated Glomerular Filt Rate > 60; Glucose 250 mg/dL (65-110); Potassium 4.3 mmol/L (3.4-5.0); Sodium 130 mmol/L (137-145)
[2025-06-12 12:36] LABS: Anion Gap 5 mmol/L (4-12); Chloride 100 mmol/L (98-107)
--- NOTE | 2025-06-12 13:41 | PM.DS ---
DS: Admitting Diagnosis Discharge Date 06/12/25 Admitting Diagnosis - chest pain - T2DM DS: Discharge Diagnosis Discharge Diagnosis (1) Chest pain: Qualifiers: Chest pain type: other chest pain Qualified Code(s): R07.89 - Other chest pain Code(s): R07.9 - Chest pain, unspecified Status: Acute (2) Delirium: Code(s): R41.0 - Disorientation, unspecified Status: Acute (3) Type 2 diabetes mellitus with diabetic polyneuropathy, with long-term current use of insulin: Code(s): E11.42 - Type 2 diabetes mellitus with diabetic polyneuropathy; Z79.4 - assisted (current) use of insulin Status: Acute (4) Hyponatremia: Code(s): E87.1 - Hypo-osmolality and hyponatremia Status: Acute (5) Chronic systolic heart failure: Code(s): I50.22 - Chronic systolic (congestive) heart failure Status: Acute DS: Summary Hospital Course Reason for hospitalization: - chest pain Hospital Course: Patient is a 79-year-old male with past history of HFrEF, type 2 diabetes, mood disorder who presented to the emergency department complaints of chest pain. EKG showed ventricular paced rhythm. Initial troponin negative. CTA chest with no PE or aortic dissection, minimally distended esophagus. He was admitted for further workup regarding his chest pain. Cardiology was consulted and stated patient could be discharged if troponin trend was negative with close outpatient follow-up for stress test and echocardiogram with patient's criminal justice professor at [facility]. Troponin remained negative x4 draws and the patient remained chest pain-free while admitted. He was instructed to call for an appointment with his criminal justice professor tomorrow. On day of discharge, patient had mild confusion/agitation consistent with hospital-acquired delirium. was at bedside during assessment and stated he has had issues with confusion when hospitalized in the past. Patient's sodium level was 131-132 corrected for hyperglycemia, not to a degree that should cause confusion. He remained without focal deficits. He denied urinary symptoms. On discharge, he was alert and oriented to self, place and date. Patient was adamant about going home and did not want to stay for further testing. Patient felt he would improve at home in his normal environment where he could get better sleep. I had a shared decision-making discussion with patient and and they were instructed to bring patient back to the hospital if patient's confusion worsens or he is not tolerating PO. He was instructed to have a repeat BMP in 1-2 days in light of hyponatremia and follow-up with his PCP. Plan to continue metoprolol, Aldactone and Jardiance in setting of HFrEF. Reason for no ACEi/ARB not clear on discharge, but patient is following closely with a criminal justice professor so will defer medication management to them. Plan to continue patient's home insulin regimen in setting of T2DM. Patient was discharged in stable condition with strict return precautions. Status at Discharge Functional status at discharge: independent ambulation Time Spent with Patient Time attestation: Total time spent providing and/or coordinating discharge services: Time spent: Less than 30 minutes Exam Narrative: General: NAD Eyes: EOMI ENT: neck supple Cardiovascular: Regular rate and rhythm Respiratory: Clear to auscultation, respirations even and unlabored on RA Gastrointestinal: Soft, non tender Genitourinary: no suprapubic tenderness Musculoskeletal: No edema Skin: warm, dry Neuro: Alert and oriented to self, place and time. No focal deficits. Psych: Mood appropriate DS: Data Data Completed and Pending Completed studies during hospitalization: - CTA chest - CXR Labs on day of discharge: Labs from last 24 hours 06/12/25 06/12/25 06/12/25 12:04 07:20 04:07 WBC 5.8 RBC 3.91 L Hgb 12.0 L Hct 38.1 L MCV 97.4 MCH 30.7 MCHC 31.5 L RDW 16.5 H Plt Count 221 MPV 9.2 Immature Gran % (Auto) 0.3 Neut % (Auto) 84.9 H Lymph % (Auto) 6.7 L [place] % (Auto) 7.2 Eos % (Auto) 0.7 Baso % (Auto) 0.2 Lymph # (Auto) 0.39 L [place] # (Auto) 0.4 Eos # (Auto) 0.0 Baso # (Auto) 0.0 Abs Immat Gran (auto) 0.02 Absolute Neuts (auto) 5.0 Absolute Nucleated RBC 0.000 Nucleated RBC % 0.0 Sodium 130 L 129 L Potassium 4.3 4.5 Chloride 100 99 Carbon Dioxide 25 26 Anion Gap 5 4 BUN 17 16 Creatinine 0.98 0.99 Estim Creat Clear Calc 70 70 Estimated GFR > 60 > 60 Glucose 250 H 213 H POC Capillary Glucose 220 H Calcium 8.7 8.3 L Troponin I < 0.012 Triglycerides 143 Cholesterol 115 LDL Cholesterol Direct 39 HDL Direct 43 06/11/25 06/11/25 06/11/25 20:35 17:17 16:50 WBC RBC Hgb Hct MCV MCH MCHC RDW Plt Count MPV Immature Gran % (Auto) Neut % (Auto) Lymph % (Auto) [place] % (Auto) Eos % (Auto) Baso % (Auto) Lymph # (Auto) [place] # (Auto) Eos # (Auto) Baso # (Auto) Abs Immat Gran (auto) Absolute Neuts (auto) Absolute Nucleated RBC Nucleated RBC % Sodium Potassium Chloride Carbon Dioxide Anion Gap BUN Creatinine Estim Creat Clear Calc Estimated GFR Glucose POC Capillary Glucose 152 H 80 Calcium Troponin I 0.014 Triglycerides Cholesterol LDL Cholesterol Direct HDL Direct 06/11/25 06/11/25 14:26 14:09 WBC RBC Hgb Hct MCV MCH MCHC RDW Plt Count MPV Immature Gran % (Auto) Neut % (Auto) Lymph % (Auto) [place] % (Auto) Eos % (Auto) Baso % (Auto) Lymph # (Auto) [place] # (Auto) Eos # (Auto) Baso # (Auto) Abs Immat Gran (auto) Absolute Neuts (auto) Absolute Nucleated RBC Nucleated RBC % Sodium Potassium Chloride Carbon Dioxide Anion Gap BUN Creatinine Estim Creat Clear Calc Estimated GFR Glucose POC Capillary Glucose 112 H Calcium Troponin I < 0.012 Triglycerides Cholesterol LDL Cholesterol Direct HDL Direct Discharge Plan Discharge Attending physician on discharge: Rosemary Shook Consulting providers: Almita Harmon; Farhad Valdes Discharging Clinician: Almita Harmon Patient Disposition: Home with Home Health Service Activity: as tolerated Diet: regular and heart healthy Discharge Instructions: Take all medications as prescribed. Call your cardiology office tomorrow to arrange for outpatient stress test echocardiogram. Please have your lab work (BMP for sodium level) rechecked at [facility] lab in 2-3 days. Follow-up with your primary care provider in one week. Return to the emergency department if you develop chest pain, shortness of breath, persistent fever >100.4, increased confusion, loss of consciousness, inability to eat or drink, abdominal pain. Patient Instructions: Clopidogrel (By mouth), Apixaban (By mouth), Chest Pain (GEN) Patient Language: Upper Sorbian Stand Alone Forms: General Discharge Information Follow-up/Referrals: Eric Pretty MD [Primary Care Provider] - Call for Appointment (3-5 days) Discharge Medications: New ondansetron 4 mg tablet,disintegrating 4 mg PO Q8H PRN (Reason: nausea and vomiting) Qty: 10 0RF Continued methotrexate sodium 2.5 mg tablet 15 mg PO WEEKLY Rx Instructions: Friday evening folic acid 1 mg tablet 1 mg PO DAILY Humulin R U-500 (Conc) Kwikpen 500 unit/mL (3 mL) insulin pen See Rx Instructions subcut DAILY MDD 145 90 Days Qty: 27 1RF Rx Instructions: 100 units before breakfast, 35 units before dinner clopidogrel 75 mg tablet 75 mg PO DAILY prednisone 5 mg tablet 5 mg PO Q12H sertraline 100 mg tablet 150 mg PO DAILY Qty: 135 1RF buspirone 10 mg tablet 10 mg PO TID Qty: 90 1RF spironolactone 25 mg tablet 12.5 mg PO DAILY ferrous sulfate 325 mg (65 mg iron) tablet 325 mg PO DAILY pantoprazole 40 mg tablet,delayed release (DR/EC) See Rx Instructions .ROUTE .COMPLEX Qty: 90 1RF Dose Instruction: TAKE 1 TABLET BY MOUTH ONCE DAILY IN THE MORNING Rx Instructions: TAKE 1 TABLET BY MOUTH ONCE DAILY IN THE MORNING atorvastatin 40 mg tablet See Rx Instructions .ROUTE .COMPLEX Qty: 90 1RF Dose Instruction: Take 1 tablet by mouth once daily Rx Instructions: Take 1 tablet by mouth once daily cholecalciferol (vitamin D3) 25 mcg (1,000 unit) tablet 25 mcg PO DAILY metoprolol succinate 25 mg tablet extended release 24 hr 12.5 mg PO DAILY nitroglycerin 0.6 mg tablet, sublingual 0.6 mg sublingual Q5-15M PRN (Reason: chest pain) Rx Instructions: do not exceed 3 doses per episode gabapentin 300 mg capsule 300 mg PO TID Jardiance 25 mg tablet 25 mg PO DAILY Eliquis 5 mg tablet 5 mg PO BID Discontinued (DME) Home Nebulizer Machine See Rx Instructions .Route .MEDSUPPLY Qty: 1 0RF Rx Instructions: Pt to use with Albuterol 0.63% vials for SOB/ Cough and wheezing. No Action (DME) pen needle, diabetic [BD Ultra-Fine Gabrielle Pen Needle] 32 gauge x 5/32 needle See Rx Instructions .Route Qty: 300 1RF Rx Instructions: As directed Other Ambulatory Orders: Basic Metabolic Panel (DAILY) Timeframe: [id number] Location: Determined by Patient Ordered By: Almita Harmon Date of admission: 06/11/25 13:40 Primary Care Provider: Eric Pretty Admitting Provider: Rosemary Shook Attending physician on admission: Rosemary Shook Condition: Stable Hospitalist MIPS Heart Failure (Exclusion) Patient has history of Heart Transplant or Left Ventricular Assistive Device?: No IF YES, STOP HERE Heart Failure (Qualifier) Patient has current or prior documentation of LVEF less than or equal to 40%, or mod/servere depressed LVSF?: Yes IF NO, STOP HERE If Yes, Heart Failure (Qualifier) Patient was prescribed or already taking an Angiotensin-Converting Enzyme (ALBIN) Inhibitor, or Antiotensin Receptor Sven (ARB): No Patient was prescribed or already taking bisoprolol, carvedilol, or sustained release metoprolol succinate: Yes If Medications not prescribed/taking Reason patient not prescribed/taking ALBIN or ARB: Medical reasons: allergy, intolerance, contraindication or other
--- NOTE | 2025-06-12 13:56 | PC.NURSE ---
Patient in bed with at bedside. Provider in to see patient for reassessment. Patient is confused at this time, unable to give correct location and date. Patient continues to ask for help and to go home. Per provider, order to transfer patient will be canceled and order to discharge home will be placed, is aware to bring patient back to hospital if patient complains of chest pain, N/V/D and will make f/u appointment with patient's Global Marketing Coordinator on 06/13/25. Jb Marques RN
== END 2025-06-12 14:12 | disposition home health service (06) ==
LOC: ANHED 11:40 → ANHIMU 14:31
PROVIDERS: Internal Medicine; Nurse Practitioner Gerontology; Physician Assistant; Admitting Provider Internal Medicine; Emergency Provider General Practice; PCP Internal Medicine; Visit Provider Internal Medicine
DX: R07.89 Other chest pain (principal); R41.0 Disorientation, unspecified; E87.1 Hypo-osmolality and hyponatremia; F39 Unspecified mood [affective] disorder; F41.8 Other specified anxiety disorders; E11.42 Type 2 diabetes mellitus with diabetic polyneuropathy; I50.22 Chronic systolic (congestive) heart failure; I48.0 Paroxysmal atrial fibrillation; I25.10 Atherosclerotic heart disease of native coronary artery without angina pectoris; E11.319 Type 2 diabetes mellitus with unspecified diabetic retinopathy without macular edema; F17.290 Nicotine dependence, other tobacco product, uncomplicated; M06.9 Rheumatoid arthritis, unspecified; Z79.01 Long term (current) use of anticoagulants; Z79.02 Long term (current) use of antithrombotics/antiplatelets; Z79.4 Long term (current) use of insulin; Z79.84 Long term (current) use of oral hypoglycemic drugs; Z79.899 Other long term (current) drug therapy; Z85.46 Personal history of malignant neoplasm of prostate; Z86.718 Personal history of other venous thrombosis and embolism; Z92.3 Personal history of irradiation; Z95.0 Presence of cardiac pacemaker; Z95.1 Presence of aortocoronary bypass graft; Z95.5 Presence of coronary angioplasty implant and graft; Z96.1 Presence of intraocular lens; Z98.42 Cataract extraction status, left eye; Z98.41 Cataract extraction status, right eye
CPT/HCPCS: 36415; 71045; 71275; 80048; 80053; 80061; 82948; 83690; 83880; 84484; 85025; 85610; 85730; 93005; 96374; 96375; 96376; 99285; A9270; G0378; J0780; J1815; J2270; J2405; J7512; Q9967

== ENCOUNTER 2025-06-14 08:50 | Outpatient (CLI) | payer MEDICARE, SELFPAY ==
--- OUTSIDE RECORDS SUMMARY | 2025-06-14 08:55 | XMS_ITS | Clinical Summary ---
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
--- OUTSIDE RECORDS SUMMARY | 2025-06-14 08:56 | XMS_ITS | Referral Summary ---
Author Organization [facility] [place] [address] Address [address] [place] [address] Care Team Providers Care Social Welfare Administrator Name Role Phone Eric Pretty MD Primary Care Provider [phone] Dominic Young MD Unavailable Carlos Hernandez MD Unavailable [phone] Encounters Date Type Department Care Team Description 06/13/2025 Orders Only [facility] Cardiology [address] [place] [address] Farhad Valdes MD 04/08/2025 Telephone [facility] [address] [place] [phone] Natacha Henley 04/01/2025 Telephone [facility] [address] [place] [phone] Olga Goodson Please schedule next Reclast. Thank you! 04/01/2025 1:15 PM CDT Office Visit [facility] [address] [place] [phone] Olga Bueno PA Rheumatoid arthritis of [...] occurs. Assessment & Plan (12/24/2024 12:49 PM CHERRY PITTER): BMD 06/09/24: LFN 0.761, tscore -1.2 Total [...] occurs. Assessment & Plan (09/23/2024 2:49 PM CHERRY PITTER): BMD 06/09/24: LFN 0.761, tscore -1.2 Total [...] candidate Assessment & Plan (09/23/2024 1:14 PM CHERRY PITTER): Xrays 2016: Moderate osteoarthritis of the acromioclavicular [...] walks. Assessment & Plan (12/12/2022 3:07 PM CHERRY PITTER): R shoulder hurting for the past 2-3 days. May have been triggered by carrying in grocery bags. Hx rotator cuff tears per pt's report. Recommend heat/ice, rest. Will order PT. Consider seeing ortho if not improving Atherosclerotic cardiovascular disease Assessment & Plan (11/12/2022 3:08 PM CHERRY PITTER): S/p multiple MIs/cardiac arrest, sick sinus, CHF. Has pacemaker. 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 On eliquis and clopidogrel History of DVT of lower extremity 11/12/2022 History of prostate cancer 11/12/2022 Overview (11/12/2022): Treated with radiation in 2017 Chronic pain syndrome 12/16/2021 Type 2 diabetes mellitus wit h diabetic neuropathy, unspecified 11/17/2020 Chronic pain of right knee 06/08/2019 Assessment & Plan (09/23/2024 1:05 PM CHERRY PITTER): Mild OA on xray from 06/04. Had [...] benefit. Assessment & Plan (01/04/2020 12:03 PM CHERRY PITTER): Mild OA on xray from 06/04. Had cortisone shots years ago but they spiked his sugars. Had zilretta on 10/29/19 as this formulation causes less systemic steroid effect than regular triamcinolone injection. However, he reported no benefit. Assessment & Plan (10/26/2019 2:15 PM CHERRY PITTER): Mild OA on xray from 06/04. Had [...] pain. Assessment & Plan (12/24/2024 2:28 PM CHERRY PITTER): 3 prior back surgeries and still having a lot of pain. Decided against pursuing any more surgery. Has been to pain mgmt in [facility]. Continues to take gabapentin for neuropathic pain. Assessment & Plan (09/23/2024 1:05 PM CHERRY PITTER): 3 prior back surgeries and still having [...] pain Assessment & Plan (11/12/2022 3:05 PM CHERRY PITTER): 3 prior back surgeries and he does not want to have any additional surgery. Sees pain mgmt in [facility]. Discussed pain stimulator but he deferred for now. Continues to take gabapentin for neuropathic pain Assessment & Plan (01/04/2020 12:04 PM CHERRY PITTER): No surgery planned. Continue to f/u with pcp and pain mgmt. Encouraged to continue water exercise. Declines PT. Discuss weight loss treatments with pcp. He used to be on duloxetine for mood and chronic pain and can't remember why he stopped. He would be willing to restart this now. Begin 30mg daily. Assessment & Plan (10/26/2019 2:16 PM CHERRY PITTER): No surgery planned. Continue to f/u with [...] & Plan (08/21/2018 2:15 PM CDT): Saw industrial hygiene manager who put him back on midodrine. [...] quantiferon 12/18 Neg hepatitis 12/18 utd , [id number], yearly flu shot. Had shingrix Had RSV vaccine Had original COVID vaccine series but not additional boosters Assessment & Plan (12/24/2024 12:50 PM CHERRY PITTER): Neg quantiferon 12/18 Neg hepatitis 12/18 utd [id number], [id number], yearly flu shot. Had shingrix Had RSV vaccine Had original COVID vaccine series but not additional boosters Assessment & Plan (09/23/2024 1:19 PM CHERRY PITTER): Neg quantiferon 12/18 Neg hepatitis 12/18 utd [id number], ocoricmyk12, yearly flu shot. Had shingrix Had RSV vaccine Had original COVID vaccine series but not additional boosters Assessment & Plan (06/22/2024 1:27 PM CDT): Neg quantiferon 12/18 Neg hepatitis 12/18 utd cbczfqy31, exfqzdcft75, yearly flu shot. Recommend shingrix, COVID booster Assessment & Plan (03/16/2024 2:20 PM CDT): Neg quantiferon 12/18 Neg hepatitis 12/18 utd uhxadlu93, kfvggcsow77, yearly flu shot. Recommend shingrix, COVID booster Assessment & Plan (01/27/2024 1:06 PM CDT): Neg quantiferon 12/18 Neg hepatitis 12/18 utd tclrybc58, , yearly flu shot. Recommend shingrix, COVID booster Assessment & Plan (10/28/2023 3:46 PM CHERRY PITTER): Neg quantiferon 12/18 Neg hepatitis 12/18 utd biksfsa99, ablgejefp00, yearly flu shot. Recommend shingrix, COVID booster Assessment & Plan (07/28/2023 2:25 PM CDT): Neg quantiferon 12/18 Neg hepatitis 12/18 utd , [id number], yearly flu shot. Recommend shingrix, COVID booster Assessment & Plan (05/27/2023 1:55 PM CDT): Neg quantiferon 12/18 Neg hepatitis 12/18 utd mmynnig95, mvukfbucs31, flu shot. Recommend shingrix, COVID boosters if not done Assessment & Plan (04/17/2023 4:33 PM CDT): Neg quantiferon 12/18 Neg hepatitis 12/18 utd [id number], yoeepqggf04, flu shot. Recommend shingrix, COVID boosters if not done Assessment & Plan (12/12/2022 3:06 PM CHERRY PITTER): Neg quantiferon 12/18 Neg hepatitis 12/18 utd [id number], sjcycogrk19, flu shot. Recommend shingrix, COVID boosters if not done Will advise Evusheld if he goes back on Rituxan in the future Assessment & Plan (11/12/2022 3:05 PM CHERRY PITTER): Neg quantiferon 12/18 Neg hepatitis 12/18 utd mafousu55, ibouivcai52, flu shot. Recommend shingrix, COVID boosters if not done Will advise Evusheld if he goes back on Rituxan in the future Assessment & Plan (01/04/2020 11:23 AM CHERRY PITTER): Neg quantiferon / Neg hepatitis 12/18 utd [id number], auowyterq75, flu shot. Recommend shingrix Assessment & Plan (10/26/2019 11:19 AM CHERRY PITTER): Neg quantiferon 18 Neg hepatitis 12/18 utd gkhveao81, lbfnxjygu65, flu shot. Recommend shingrix Assessment & Plan (08/10/2019 11:37 AM CDT): Neg quantiferon /18 Neg hepatitis 18 Assessment & Plan (06/08/2019 12:09 PM CDT): Neg quantiferon /18 Neg hepatitis 1218 Assessment & Plan (03/26/2019 8:13 AM CDT): Neg quantiferon /18 Neg hepatitis 18 Assessment & Plan (12/24/2018 9:59 PM CHERRY PITTER): Neg quantiferon 18 Neg hepatitis 18 Syncope and collapse 08/28/2017 Orthostasis 08/28/2017 Coronary artery disease invo lving [place] coronary artery of [place] heart with angina pectoris 08/28/2017 Assessment & Plan (01/04/2020 12:04 PM CHERRY PITTER): Pt had abnormal stress test followed by cardiac cath, stenting. Symptoms currently improved. industrial hygiene manager Dr. Young. Requested lipid panel so [...] Overview (02/21/2017): Seasonal allergies Rheumatoid arthritis of [facility] sites with negative rheumatoid factor [...] needed Assessment & Plan (12/24/2024 2:28 PM CHERRY PITTER): cdai = 33, high Was not seen [...] needed Assessment & Plan (09/23/2024 2:48 PM CHERRY PITTER): cdai = 17, moderate Was not seen [...] weeks Assessment & Plan (10/28/2023 3:45 PM CHERRY PITTER): cdai = 10, low, improving Was not [...] month Assessment & Plan (12/12/2022 3:05 PM CHERRY PITTER): cdai = 27, high Last seen in [...] month Assessment & Plan (11/12/2022 3:10 PM CHERRY PITTER): cdai = 32, high Last seen in [...] month Assessment & Plan (01/04/2020 11:21 AM CHERRY PITTER): cdai = 26, high Pt received first [...] months Assessment & Plan (10/26/2019 2:17 PM CHERRY PITTER): cdai = 30 Pt received first Rituxan [...] today. Assessment & Plan (12/24/2018 9:58 PM CHERRY PITTER): cdai = 13, low-moderate Pt received first [...] doing. Assessment & Plan (10/26/2018 9:41 AM CHERRY PITTER): High cdai. Patient has been having more [...] on file Legal Sex Male 3:50 PM CHERRY PITTER Gender Identity Not on file Sexual Orientation [...] home safety. Medical Devices Implanted Type Area Personal Banker Device Identifier Shelf Expiration Date Model / Serial / Lot Stents Heart Description:cardiac stents Hardware Spine Lumbar Description:lumbar hardware Procedures Procedure Name Priority Date/Time Associated Diagnosis Comments CARDIOLOGY DOCUMENT SCAN Routine 06/11/2025 3:50 PM CDT COMPREHENSIVE METABOLIC PANEL Routine 12/24/2024 1:20 PM CHERRY PITTER 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 factor (HCC) High risk medications (not anticoagulants) long-term use LIPID PANEL Routine 01/04/2020 11:48 AM CHERRY PITTER HEPATITIS PANEL, ACUTE Routine 8 11:17 AM CHERRY PITTER HEMOGLOBIN A1C Routine 08/05/2014 3:33 PM CDT from Last 3 Months or Most Recently Relevant to Health Maintenance Results * Cardiology Document Scan (06/11/2025 3:50 PM CDT) Anatomical Region Laterality Modality Other us Farhad Valdes MD CV CARDIAC SERVICES PROCEDURES F inal Result * (ABNORMAL) Comprehensive metabolic panel (12/24/2024 1:20 PM CHERRY PITTER) Glucose 96 65 - 99 mg/dL [facility] [...] [facility] Blood 12/24/2024 1:20 PM CHERRY PITTER 12/24/2024 1:21 [address] PITTER [address] LAB BLOOD ORDERABLES Fin al Result [facility] [address] [place] [address] * (ABNORMAL) Lipid panel (01/04/2020 11:48 AM CHERRY PITTER) Cholesterol 155 <200 mg/dL [facility] [place] HDL 50 > OR = 40 mg/dL [facility] [place] Triglycerides 355(H) <150 mg/dL [facility] [place] Comment: If a non-fasting specimen was collected, consider repeat triglyceride testing on a fasting specimen if clinically indicated. Darshan et al. J. of Clin. Lipidol. 2015;9:129-169. LDL 62 mg/dL (calc) [facility] [place] Comment: Reference range: <100 Desirable range <100 mg/dL for primary prevention; <70 mg/dL for patients with CHD or diabetic patients with > or = 2 CHD risk factors. LDL-C is now calculated using the Girma-Rachel calculation, which is a validated novel method providing better accuracy than the Friedewald equation in the estimation of LDL-C. Girma SS et al. GINA. 2013;310(19): 1326-6770 (http://education.[employer]/faq/FHD176) Chol/HDL ratio 3.1 <5.0 (calc) [facility] [place] Non-HDL, (LDL+VLDL) 105 <130 mg/dL (calc) [facility] [place] Comment: For patients with diabetes plus 1 major ASCVD risk factor, treating to a non-HDL-C goal of <100 mg/dL (LDL-C of <70 mg/dL) is considered a therapeutic option. 01/04/2020 11:4 8 AM CHERRY PITTER 01/04/2020 11:49 AM CHERRY PITTER Narrative Resulting Agency Comment Performing Organization Information: Site ID: AB Name: [email or web address] [facility] Address: [address] [place], [place] [address]ner [facility] [place] [address] Director: Angie Vaca D.O., MPH us [address] LAB BLOOD ORDERABLES Fin al Result Performing Organization Address City/[facility]/ZIP Co de Phone Number [facility] [place] * Hepatitis panel, acute (11/03/2018 11:17 AM CHERRY PITTER) Hep A IgM NON-REACTI VE NON-REACTI VE [facility] [place] HepBsAg NON-REACTI VE NON-REACTI VE [facility] [place] Hep B core IgM NON-REACTI VE NON-REACTI VE [facility] [place] Hep C Ab NON-REACTI VE NON-REACTI VE [facility] [place] SIGNAL TO CUT-OFF 0.02 <1.00 [facility] [place] 11/03/2018 11:1 7 AM CHERRY PITTER 11/03/2018 11:18 AM CHERRY PITTER Narrative Resulting Agency Comment Performing Organization Information: Site ID: AB Name: Mariann Pinedo Address: [address] [place] [address] [place] [address] Director: Angie Vaca D.O., MPH us Master Henley III, MD LAB MICROBIOLOGY - GENERAL ORDERABLES Final Result Performing Organization Address City/[facility]/ZIP Co de Phone Number [facility] [place] * (ABNORMAL) Hemoglobin A1c [...] of diabetes for children. Test performed at [facility] [address] [place] [address] Director: ANGIE VACA DO,MPH 08/05/2014 3:[address] LAB BLOOD ORDERABLES [facility] al Result [facility] HISTORICAL RESULTS from Last 3 Months or Most Recently Relevant to Health Maintenance Insurance MEDICARE MEDICARE [facility] MEDICARE [facility] BLUE CROSS MEDICARE SUPPLEMENT MEDICARE Care Teams Social Welfare Administrator Relationship Specialty Start Date End Date Eric Pretty MD [address] [facility] [address] [facility] [address] [place] [address] PCP - General Internal Medicine 01/28/18 Dominic Young MD [address] [facility] [address] [place] [address] Consulting Physician Cardiology 01/04/20 Carlos Hernandez MD [address] [place] [address] Consulting Physician Rheumatology 01/27/24
--- OUTSIDE RECORDS SUMMARY | 2025-06-14 08:56 | XMS_ITS | Clinical Summary ---
Author Organization [facility] [address] Address [address] [place] [address] Care Team Providers Care Diet Tech Name Role Phone Eric Pretty MD Primary Care Provider [phone] Dominic Young MD Unavailable [phone] Carlos Hernandez MD Unavailable [phone] Allergies Active Allergy Reactions Criticality Noted [...] occurs. Assessment & Plan (12/24/2024 12:49 PM BARN MANAGER): BMD 06/09/24: LFN 0.761, tscore -1.2 Total [...] occurs. Assessment & Plan (09/23/2024 2:49 PM BARN MANAGER): BMD 06/09/24: LFN 0.761, tscore -1.2 Total [...] candidate Assessment & Plan (09/23/2024 1:14 PM BARN MANAGER): Xrays 2016: Moderate osteoarthritis of the acromioclavicular [...] walks. Assessment & Plan (12/12/2022 3:07 PM BARN MANAGER): R shoulder hurting for the past 2-3 days. May have been triggered by carrying in grocery bags. Hx rotator cuff tears per pt's report. Recommend heat/ice, rest. Will order PT. Consider seeing ortho if not improving Atherosclerotic cardiovascular disease Assessment & Plan (11/12/2022 3:08 PM BARN MANAGER): S/p multiple MIs/cardiac arrest, sick sinus, CHF. Has pacemaker. Director Of Recruitment Dr. Young. On eliquis and clopidogrel History of DVT of lower extremity 11/12/2022 History of prostate cancer 11/12/2022 Overview (11/12/2022): Treated with radiation in 2017 Chronic pain syndrome 12/16/2021 Type 2 diabetes mellitus wit h diabetic neuropathy, unspecified 11/17/2020 Chronic pain of right knee 06/08/2019 Assessment & Plan (09/23/2024 1:05 PM BARN MANAGER): Mild OA on xray from 06/04. Had [...] benefit. Assessment & Plan (01/04/2020 12:03 PM BARN MANAGER): Mild OA on xray from 06/04. Had cortisone shots years ago but they spiked his sugars. Had zilretta on 10/29/19 as this formulation causes less systemic steroid effect than regular triamcinolone injection. However, he reported no benefit. Assessment & Plan (10/26/2019 2:15 PM BARN MANAGER): Mild OA on xray from 06/04. Had [...] pain. Assessment & Plan (12/24/2024 2:28 PM BARN MANAGER): 3 prior back surgeries and still having a lot of pain. Decided against pursuing any more surgery. Has been to pain mgmt in [facility]. Continues to take gabapentin for neuropathic pain. Assessment & Plan (09/23/2024 1:05 PM BARN MANAGER): 3 prior back surgeries and still having [...] pain Assessment & Plan (11/12/2022 3:05 PM BARN MANAGER): 3 prior back surgeries and he does not want to have any additional surgery. Sees pain mgmt in [facility]. Discussed pain stimulator but he deferred for now. Continues to take gabapentin for neuropathic pain Assessment & Plan (01/04/2020 12:04 PM BARN MANAGER): No surgery planned. Continue to f/u with pcp and pain mgmt. Encouraged to continue water exercise. Declines PT. Discuss weight loss treatments with pcp. He used to be on duloxetine for mood and chronic pain and can't remember why he stopped. He would be willing to restart this now. Begin 30mg daily. Assessment & Plan (10/26/2019 2:16 PM BARN MANAGER): No surgery planned. Continue to f/u with [...] & Plan (08/21/2018 2:15 PM CDT): Saw chief service observer who put him back on midodrine. Just [...] Neg quantiferon 12/18 Neg hepatitis 12/18 utd [id number], [id number], yearly flu shot. Had shingrix Had RSV vaccine Had original COVID vaccine series but not additional boosters Assessment & Plan (12/24/2024 12:50 PM BARN MANAGER): Neg quantiferon 12/18 Neg hepatitis 12/18 utd hrkgbav01, vmbkryibw10, yearly flu shot. Had shingrix Had RSV vaccine Had original COVID vaccine series but not additional boosters Assessment & Plan (09/23/2024 1:19 PM BARN MANAGER): Neg quantiferon 12/18 Neg hepatitis 12/18 utd vocgixk26, uhwuzoolp04, yearly flu shot. Had shingrix Had RSV vaccine Had original COVID vaccine series but not additional boosters Assessment & Plan (06/22/2024 1:27 PM CDT): Neg quantiferon 12/18 Neg hepatitis 12/18 utd ozavzwn17, eoxoagrux97, yearly flu shot. Recommend shingrix, COVID booster Assessment & Plan (03/16/2024 2:20 PM CDT): Neg quantiferon 12/18 Neg hepatitis 12/18 utd wzfuvfc03, ugsvxtlmy25, yearly flu shot. Recommend shingrix, COVID booster Assessment & Plan (01/27/2024 1:06 PM CDT): Neg quantiferon 12/18 Neg hepatitis 12/18 utd , [id number], yearly flu shot. Recommend shingrix, COVID booster Assessment & Plan (10/28/2023 3:46 PM BARN MANAGER): Neg quantiferon 12/18 Neg hepatitis 12/18 utd idgfleu08, mylpbwger87, yearly flu shot. Recommend shingrix, COVID booster Assessment & Plan (07/28/2023 2:25 PM CDT): Neg quantiferon 12/18 Neg hepatitis 12/18 utd [id number], cyfuiudec62, yearly flu shot. Recommend shingrix, COVID booster Assessment & Plan (05/27/2023 1:55 PM CDT): Neg quantiferon 12/18 Neg hepatitis 12/18 utd ezrrqfq16, fzzuoqnog08, flu shot. Recommend shingrix, COVID boosters if not done Assessment & Plan (04/17/2023 4:33 PM CDT): Neg quantiferon 12/18 Neg hepatitis 12/18 utd , , flu shot. Recommend shingrix, COVID boosters if not done Assessment & Plan (12/12/2022 3:06 PM BARN MANAGER): Neg quantiferon 12/18 Neg hepatitis 12/18 utd [id number], , flu shot. Recommend shingrix, COVID boosters if not done Will advise Evusheld if he goes back on Rituxan in the future Assessment & Plan (11/12/2022 3:05 PM BARN MANAGER): Neg quantiferon 12/18 Neg hepatitis 12/18 utd [id number], nqthejorc44, flu shot. Recommend shingrix, COVID boosters if not done Will advise Evusheld if he goes back on Rituxan in the future Assessment & Plan (01/04/2020 11:23 AM BARN MANAGER): Neg quantiferon 12/18 Neg hepatitis 12/18 utd sxihjro32, gaowcrbyc83, flu shot. Recommend shingrix Assessment & Plan (10/26/2019 11:19 AM BARN MANAGER): Neg quantiferon 12/18 Neg hepatitis 12/18 utd rmyhbqe04, lsbvbqanj26, flu shot. 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 Symptoms currently improved. chief service observer Dr. Young. Requested lipid panel so will [...] Seasonal allergies Rheumatoid arthritis of [facility] sites with negative rheumatoid factor 05/06/2011 Overview [...] needed Assessment & Plan (12/24/2024 2:28 PM BARN MANAGER): cdai = 33, high Was not seen [...] needed Assessment & Plan (09/23/2024 2:48 PM BARN MANAGER): cdai = 17, moderate Was not seen [...] weeks Assessment & Plan (10/28/2023 3:45 PM BARN MANAGER): cdai = 10, low, improving Was not [...] month Assessment & Plan (12/12/2022 3:05 PM BARN MANAGER): cdai = 27, high Last seen in [...] month Assessment & Plan (11/12/2022 3:10 PM BARN MANAGER): cdai = 32, high Last seen in [...] month Assessment & Plan (01/04/2020 11:21 AM BARN MANAGER): cdai = 26, high Pt received first [...] months Assessment & Plan (10/26/2019 2:17 PM BARN MANAGER): cdai = 30 Pt received first Rituxan [...] today. Assessment & Plan (12/24/2018 9:58 PM BARN MANAGER): cdai = 13, low-moderate Pt received first [...] doing. Assessment & Plan (10/26/2018 9:41 AM BARN MANAGER): High cdai. Patient has been having more [...] Department Care Team Description 06/13/2025 Orders Only [facility] [address] [place] [address] Farhad Valdes MD 04/08/2025 Telephone [facility] [address] [place] [phone] Natacha Henley 04/01/2025 1:15 PM CDT Office Visit [facility] [address] [place] [phone] Olga Bueno PA 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 factor (HCC) (Primary Dx); High risk medications (not anticoagulants) long-term use; Osteoarthritis of spine with radiculopathy, lumbar region; Age-related osteoporosis without current pathological fracture; Chronic systolic (congestive) heart failure (HCC) 04/01/2025 Telephone [facility] [address] [place] [phone] Olga Goodson Please schedule next Reclast. [...] Medical chronic back pa in Diabetes mellitus ([facility]) Diabetes mellitus; Comments: [facility] 01/24/2016 - Hypertension Hypertension Hyperlipidemia Hyperlipidemia; Comments: [facility] 01/24/2016 - Gastroesophageal reflux disease GERD Depression Depression Rheumatoid arthritis ([facility]) Rheum atoid arthritis; Comments: [facility] 01/24/2016 - Anxiety disorder Anxiety Diabetic neuropathy ([facility]) Diabet ic neuropathy; Comments: [facility] 01/24/2016 - Benign prostatic hyperplasia BPH - Benign prostatic hypertrophy; Comments: [facility] 01/24/2016 - History of spinal surgery H/O Sp inal surgery; Comments: [facility] 01/24/2016 - Cancer ([facility]) Obesity Family History Medical History Relation [...] on file Legal Sex Male 3:50 PM BARN MANAGER Gender Identity Not on file Sexual [...] 01/09/2021, Additional history exists eGFR 12/24/2025 12/24/2024, 11/05/2024, 06/22/2024, Additional history exists Pneumococcal vaccine 65+ [...] home safety. Medical Devices Implanted Type Area Backup Administrative Coordinator Device Identifier Shelf Expiration Date Model / Serial / Lot Stents Heart Description:cardiac stents Hardware Spine Lumbar Description:lumbar hardware Procedures Procedure Name Priority Date/Time Associated Diagnosis Comments CARDIOLOGY DOCUMENT SCAN Routine 06/11/2025 3:50 PM CDT COMPREHENSIVE METABOLIC PANEL Routine 12/24/2024 1:20 PM BARN MANAGER 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 factor (HCC) High risk medications (not anticoagulants) long-term use LIPID PANEL Routine 01/04/2020 11:48 AM BARN MANAGER HEPATITIS PANEL, ACUTE Routine 8 11:17 AM BARN MANAGER HEMOGLOBIN A1C Routine 08/05/2014 3:33 PM CDT from Last 3 Months or Most Recently Relevant to Health Maintenance Results * Cardiology Document Scan (06/11/2025 3:50 PM CDT) Anatomical Region Laterality Modality Other Farhad Valdes MD CV CARDIAC SERVICES PROCEDURES F inal Result * (ABNORMAL) Comprehensive metabolic panel (12/24/2024 1:20 PM BARN MANAGER) Glucose 96 65 - 99 mg/dL [facility] [...] [facility] Blood 12/24/2024 1:20 PM BARN MANAGER 12/24/2024 1:21 PM BARN MANAGER us [address] LAB BLOOD ORDERABLES Fin al Result [facility] [address] [place] [address] * (ABNORMAL) Lipid panel (01/04/2020 11:48 AM BARN MANAGER) Cholesterol 155 <200 mg/dL [facility] [place] HDL 50 > OR = 40 mg/dL [facility] [place] Triglycerides 355(H) <150 mg/dL [facility] [place] Comment: If a non-fasting specimen was collected, consider repeat triglyceride testing on a fasting specimen if clinically indicated. Darshan et al. J. of Clin. Lipidol. 2015;9:129-169. LDL 62 mg/dL (calc) [facility] [place] Comment: Reference range: <100 Desirable range <100 mg/dL for primary prevention; <70 mg/dL for patients with CHD or diabetic patients with > or = 2 CHD risk factors. LDL-C is now calculated using the Ariane calculation, which is a validated novel method providing better accuracy than the Friedewald equation in the estimation of LDL-C. Girma YING et al. GINA. 2013;310(19): 3337-6358 (http://education.AdhereTx/faq/XMK817) Chol/HDL ratio 3.1 <5.0 (calc) [facility] [place] Non-HDL, (LDL+VLDL) 105 <130 mg/dL (calc) [facility] [place] Comment: For patients with diabetes plus 1 major ASCVD risk factor, treating to a non-HDL-C goal of <100 mg/dL (LDL-C of <70 mg/dL) is considered a therapeutic option. 01/04/2020 11:4 8 AM BARN MANAGER 01/04/2020 11:49 AM BARN MANAGER Narrative Resulting Agency Comment Performing Organization Information: Site ID: AB Name: Mariann Pinedo Address: [address] [place] [phone] Director: Angie Vaca D.O., MPH us [address] LAB BLOOD ORDERABLES Fin al Result Performing Organization Address [facility] de Phone Number [facility] [place] AB Ma * Hepatitis panel, acute (11/03/2018 11:17 AM BARN MANAGER) Hep A IgM NON-REACTI VE NON-REACTI VE [facility] [place] HepBsAg NON-REACTI VE NON-REACTI VE [facility] [place] Hep B core IgM NON-REACTI VE NON-REACTI VE [facility] [place] Hep C Ab NON-REACTI VE NON-REACTI VE [facility] [place] SIGNAL TO CUT-OFF 0.02 <1.00 [facility] [place] 11/03/2018 11:1 7 AM BARN MANAGER 11/03/2018 11:18 AM BARN MANAGER Narrative Resulting Agency Comment Performing Organization Information: Site ID: AB Name: Mariann Pinedo Address: [address] [place] [phone] Director: Angie Vaca D.O. MPH us Master Henley III, MD LAB MICROBIOLOGY - GENERAL ORDERABLES Final Result Performing Organization Address [facility] Co de Phone Number [facility] [...] of diabetes for children. Test performed at [facility] [address] [place] [address] Director: ANGIE VACA DO,MPH 08/05/2014 3:[address] LAB BLOOD ORDERABLES Fin al Result [facility] HISTORICAL RESULTS from Last 3 Months or Most Recently Relevant to Health Maintenance [place] [address] MEDICARE [facility] MEDICARE SUPPLEMENT MEDICARE Care Teams Diet Tech Relationship Specialty Start Date End Date Eric Pretty MD [address] [facility] [address] [facility] MED[facility]INE [place], [place] [id number] PCP - General Internal Medicine 01/28/18 Dominic Young MD [address] [facility] [address] [place] [phone] Consulting Physician Cardiology 01/04/20 Carlos Hernandez MD [address] [place] [address] Consulting Physician Rheumatology 01/27/24
--- OUTSIDE RECORDS SUMMARY | 2025-06-14 08:57 | XMS_ITS | Clinical Summary ---
Author Organization [facility] Address [address] [place] [address] Care Team Providers Care Farmworker Cranberry Name Role Phone Eric Pretty MD Primary [...] unspecified site, unspecified whether rheumatoid factor present ([facility]) Take 1 Tablet by mouth every 6 [...] from the original. Dr. Dominic Young - Cupola Operator Insulation () Problem Noted Date Diagnosed Date Diabetes [...] (12/12/2021): Added automatically from request for surgery [id number] Generalized muscle weakness 01/22/2021 05/30/2021 Severe obesity [...] quantiferon 11/03 Neg hepatitis 11/03 utd , [id number], flu shot. 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 Just started this today. Had episode of lightheadedness coming into the office today, better with sitting. Also describes vertigo sometimes and I suggested this might represent a different problem, discuss with pcp. Syncope and collapse 08/28/2017 025 Coronary artery disease invo lving [place] coronary artery of [place] heart with angina pectoris 08/28/2017 05/10/2025 Overview (05/30/2021): Last Assessment & Plan: Pt had abnormal stress test followed by cardiac cath, stenting. Symptoms currently improved. 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 Young. Requested lipid panel so will [...] Description 06/09/2025 12:30 PM CDT Office Visit [facility] V[facility] At [address] [place] [address] Dominic Young MD Chronic HFrEF (heart failure with reduced ejection fraction) (CMS/HCC) (Primary Dx); Mixed hyperlipidemia; Paroxysmal atrial fibrillation with RVR (CMS/HCC); Cardiac pacemaker in situ; Coronary artery disease involving [place] coronary artery of [place] heart without angina pectoris 06/08/2025 Telephone [facility] At [address] [place] [address] Dominic Young MD needs appt 06/06/2025 Telephone [facility] HEART AND VASCULAR EP AT [address] [place] [address] Cuauhtemoc Saez DNP Medication Refill 06/03/2025 Refill [facility] EP AT [address] [place] [address] Cuauhtemoc Saez DNP 06/03/2025 Telephone [facility] AND [facility]ASCULAR EP AT [address] [place] [address] Cuauhtemoc Saez DNP Lab Results 06/03/2025 Orders Only [facility] EP AT [address] [place] [address] Casie Dietz RN 06/02/2025 Results Follow-Up [facility] EP AT [address] [place] [address] Casie Dietz RN BASIC METABOLIC PANEL 05/31/2025 2:15 PM CDT Office Visit [facility] HEART AND VASCULAR EP AT [address] [place] [address] Cuauhtemoc Saez DNP Atrial flutter with rapid ventricular response (CMS/HCC) (Primary Dx); Longstanding persistent atrial fibrillation (CMS/HCC); Hx of atrioventricular node ablation; 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; prison (current) use of anticoagulants; Mixed hyperlipidemia; Benign hypertension 05/25/2025 Telephone [facility] EP AT [address] [place] [address] Cuauhtemoc Saez DNP Medication Concerns 05/24/2025 Telephone [facility] EP AT [address] [place] [address] Alethea Huffman, LIGHTING DIRECTOR Edema 05/07/2025 2:55 PM CDT - 05/18/2025 3:07 PM CDT Hospital Encounter [facility] [address] [place] [address] Minal Villegas MD Hassan, MD Rosa Isela Cruz, MD Esau Noble Gayathri, MD Austin, Karen, MD Acute metabolic encephalopathy Discharge Disposition: Assisted Fac(SNF) with Medicare Certification in Anticipation of Skilled Care 05/07/2025 Travel 05/04/2025 3:08 AM CDT - 05/06/2025 3:40 PM CDT Hospital Encounter [facility] Neuroscience [address] [place] [address] Akosua Bourgeois MD Counts, Ivette Kelley MD Acute metabolic encephalopathy Discharge Disposition: Rehab Facility IP 05/02/2025 Telephone [facility]ART AND VASCULAR EP AT [address] [place] [phone] Elver Bazzi NP Medication Question 04/18/2025 2:30 PM CDT Procedure visit [facility]ART AND VASC[facility] EP AT [address] [place] [address] NICM (nonischemic cardiomyopathy) (CMS/HCC) (Primary Dx); Encounter for implantable defibrillator reprogramming or check 04/18/2025 Telephone [facility] AND VASCULAR EP AT [address] [place] [phone] Tani Patel MD Pacemaker issues 04/15/2025 9:00 AM CDT Office Visit [facility] HEART AND VASCULAR EP AT [address] [place] [address] Akanksha Cueva NP NICM (nonischemic cardiomyopathy) (CMS/HCC) (Primary Dx); 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; Longstanding persistent atrial fibrillation (CMS/HCC); Mixed hyperlipidemia 04/15/2025 8:30 AM CDT Procedure visit [facility] AND VASCULAR EP AT [address] [place] [address] NICM (nonischemic cardiomyopathy) (CMS/HCC) (Primary Dx); 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; Longstanding persistent atrial fibrillation (CMS/HCC) 04/15/2025 Telephone [facility] AND VASCULAR EP AT [address] [place] [address] Tani Patel MD Symptoms 04/15/2025 Telephone [facility] At [address] [place] [address] Akanksha Cueva NP Fatigue; Low Blood Pressure 04/05/2025 1:00 PM CDT Office Visit [facility] At [address] [place] [address] Erica Vizcarra NP Coronary artery disease involving [place] coronary artery of [place] heart without angina pectoris (Primary Dx); Benign hypertension; Paroxysmal atrial fibrillation with RVR (CMS/HCC) 03/31/2025 Results Follow-Up [facility] At [address] [place] [address] Yareli Kelsey RN BASIC METABOLIC PANEL, CBC WITH DIFFERENTIAL, BASIC METABOLIC PANEL 03/24/2025 10:30 AM CDT Office Visit [facility] At [address] [place] [address] Erica Vizcarra NP Chronic HFrEF (heart failure with reduced ejection fraction) (CMS/HCC) (Primary Dx); Coronary artery disease involving [place] coronary artery of [place] heart without angina pectoris; Mixed hyperlipidemia 03/17/2025 10:13 AM CDT - 03/19/2025 3:56 PM CDT Hospital Encounter [facility] Cardiac Progressive [facility] Unit [address] [place] [phone] Robert, Aravind, Prem Cramer MD Khan, Mafaza, MD Fall Discharge Disposition: Home Health Care Svc 03/17/2025 10:00 AM CDT Procedure visit [facility] At [address] [place] [address] Cardiac pacemaker in situ (Primary Dx) 03/17/2025 9:30 AM CDT Procedure visit [facility] AND VASCULAR EP AT [address] [place] [address] Tachy-michael syndrome (CMS/HCC) (Primary Dx); Pacemaker 03/15/2025 External Device Data STL ABSTRACTION Provider, Abstract 03/15/2025 External Device Data STL ABSTRACTION Provider, Abstract 03/15/2025 External Device Data STL ABSTRACTION Provider, Abstract from Last 3 Months Immunizations Immunization Administration [...] on file Legal 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 Gender Identity Not on file Sexual [...] 07/11/2025 4:15 PM CDT Telephone Check Up [facility] At [address] [place] [address] Dominic Young MD [address] [place] [address] [address] [place] [address] 07/20/2025 8:00 AM CDT Procedure visit [facility]ART AND VASCULAR EP AT [address] [place] [address] 07/26/2025 2:00 PM CDT Office Visit [facility] HEART AND VASCULAR EP AT [address] [place] [address] Cuauhtemoc Saez DNP [address] [place] [address] [address] [place] [address] 08/08/2025 12:00 PM CDT Office Visit [facility] At [address] [place] [address] Dominic Young MD [address] [place] [address] [address] [place] [address] Health Maintenance Due Date Last Done Comments [...] years Discontinued Medical Devices Implanted Type Area Collar Runner Device Identifier Shelf Expiration Date Model / Serial / Lot Sealant Duraseal 5ml - [id number] Implanted:Qty: 1 on 01/02/2021 by Jravis Martell MD at [facility] Biological Spine Lumbar INTEGRA LIFESCIENCE HOLD LULA 02/14/2022 / / [id number] Eit T/Plif, H 13mm, 4' , 12/08 Implanted:Qty: 1 on 01/02/2021 by Jarvis Martell MD at [facility] Cage Spine Lumbar J&J- DEPUY SPINE INC 08/16/2024 [id number] / / [id number] Description:All Depuy spinal hardware was processed on requisition, 288812. Hemostatic Surgiflo 8ml W/Thrombin 2994 - [id number] Implanted:Qty: 1 on 01/02/2021 by Jarvis Martell MD at [facility] Hemostatic Spine Lumbar J&J- ETHICON INC 11/16/2021 2994 / / [id number] Hemostat Gaby Surg Mph Pwd 3gm [id number] - [id number] Implanted:Qty: 1 on 12/14/2021 by Aki Mccray MD at [facility] Hemostatic Left: Chest CR BARD- DAVOL INC 05/14/2026 [id number] / / [id number] Hemostat Gaby Ah Powder 3gm Cr3341-Xzt - [id number] Implanted:Qty: 1 on 03/11/2025 by Chivo Moreland MD at [facility] Hemostatic Left: Chest BARD DAVOL [id number] 09/13/2029 [id number] / / [id number] Lead Pcmkr Tendril St Optm 2087tc-52 - [id number] Implanted:Qty: 1 on 12/14/2021 by Aki Mccray MD at [facility] Lead N/A: Heart TITUS [employer] 11/16/2024 2088TC-52 / [id number] / Lead Pcmkr Tendril St Optm 2087tc-58 - [id number] Implanted:Qty: 1 on 12/14/2021 by Aki Mccray MD at [facility] Lead N/A: Heart TITUS [employer] 07/17/2024 2088TC/58 / [id number] / Lead Quartet Lt Quad 86cm 1458q-86 - [id number] Implanted:Qty: 1 on 03/11/2025 by Chivo Moreland MD at [facility] Lead N/A: Heart TITUS [facility] [employer] [id number] 11/16/2027 1458Q/86 / [id number] / Rene Xpdm Crv W/Line 95mm [id number] - Ssterilized 12/20/2020 Implanted:Qty: 1 on 01/02/2021 by Jarvis Martell MD at [facility] Rene Spine Lumbar J&J- DEPU[employer] SPINE INC 5 / STERILIZED 12/20/2020 / LOAD 110 Rene Xpdm Crv W/Line 85mm 085 - Ssterilized 12/20/2020 Implanted:Qty: 1 on 01/02/2021 by Jarvis Martell MD at [facility] Rene Spine Lumbar J&J- DEPUY SPINE INC 5 / STERILIZED 12/20/2020 / LOAD 110 Log [id number] - Depuy Expedium 5.5 Spine Tray - 1 - Screw Exp Poly 6x40mm Implanted:Qty: 2 on 05/06/2011 at [facility] Screw J&J- DEPUY SPINE INC 0 / / Setscrew Inner - Ssterilized 12/20/2020 Implanted:Qty: 6 on 01/02/2021 by Jarvis Martell MD at [facility] Screw Spine Lumbar J&J- DEPU[employer] SPINE INC 0 / STERILIZED 12/20/2020 / LOAD 110 Screw Exp Poly 7x45mm - Ssterilized 12/20/2020 Implanted:Qty: 4 on 01/02/2021 by Jarvis Martell MD at [facility] Screw Spine Lumbar J&J- DEPUY SPINE INC 5 / STERILIZED 12/20/2020 / LOAD 110 Synergy- 020 Implanted:11/17 by Dominic Young MD (Quantity not on file) Stent 12/08/2020 / / [id number] Description:placed in the A Stent Synergy Xd 5.0x12mm Evrbhavyas Christopherut [id number] - [id number] Implanted:Qty: 1 on 12/13/2021 at [facility] Stent N/A: Coronary [employer] LULA 12/18/2022 [id number] / / [id number] Putty Dbx Dbm 5c 29067 - [id number] Implanted:Qty: 1 on 01/02/2021 by Jarvis Martell MD at [facility] Tissue Spine Lumbar MUSCULOSKELETAL TRANSPLANT FOU 09/04/2021 [id number] / [id number] / Healos Implanted:Qty: 1 on 05/06/2011 at [facility] 05/17/2011 [id number] / / [id number] Description:depuy spine [place] Cage Implanted:Qty: 1 on 05/06/2011 at [facility] Description:concord bullet c age, load#24 05-01-2011 Durata 65 Cm Implanted:Qty: 1 on 03/11/2025 by Chivo Moreland MD at [facility] N/A: Heart 01/14/2027 TITUS-712 0 / [id number] / Carroll Hf Defibrillator Implanted:Qty: 1 on 03/11/2025 by Chivo Moreland MD at [facility] Left: Chest 04/16/2026 TITUS-CDH CS451V / [id number] / Description:per Titus Rep - NOT MRI safe. Patient has an abadoned lead from another device -cole 05/04/25 Explanted Type Area Collar Runner Device Identifier Shelf Expiration Date Model / Serial / Lot Pacemaker Assurity-2 Mri [id number] - [id number] Implanted:Qty : 1 on 12/14/2021 by Aki Mccray MD at [facility] Pacemaker Left: Chest TITUS [employer] 05/16/2023 [id number] / [id number] / [id number] Description:Assurity MRI pacemaker and Tendril MRI and Tendril STS pacing leads allow full body, 1.5T and 3T MRI scans.* When the Assurity MRI pacemaker is combined with Tendril STS or Tendril MRI pacing leads there is no wait time between implant and MRI scan readiness.-cole 12/20/21 EXPLANTED -see new implant tab -NOW HAS ABANDONED LEAD - NOT MRI SAFE -cole 05/04/25 Log [id number] - Depuy Expedium 5.5 Spine Tray - 1 - Rene Xpdm 5.5 Ti Prebnt 45mm [id number] Implanted:Qty : 1 on 05/06/2011 at [facility] Explanted:Qty : 1 on 01/02/2021 by Jarvis Martell MD at [facility] Rene J&J- DEPUY SPINE INC 1797-72-0 45 / / Log [id number] - Depuy Expedium 5.5 Spine Tray - 1 - Screw Set Inner 1797-02-000 Implanted:Qty : 2 on 05/06/2011 at [facility] Explanted:Qty : 2 on 01/02/2021 by Jarvis Martell MD at [facility] Screw J&J- MED PROD 1797-02-0 00-OLD / [...] POC GLUCOSE Routine 05/13/2025 1:55 PM CDT PIPELINER EVALUATE AND TREAT Pending Discharge 05/13/2025 9:34 [...] POC GLUCOSE Routine 05/04/2025 4:[address] PROGRAM EVAL, IMPLANT DEVICE CARDVERT/DEFIB,MULTI- LEAD W/IN [...] CDT TELEMETRY REPORT 03/15/2025 10:37 PM CDT HEMOGLOBIN A1C Stat 03/09/2025 4:18 PM CDT LIPID PANEL Routine 05/21/2022 2:46 PM CDT Benign hypertension Mixed hyperlipidemia POC OCCULT BLOOD 1 CARD Routine 01/21/2021 2:16 PM HSE MANAGER from Last 3 Months or Most [...] Comment: FASTING:NO FASTING: NO Test Performed at: [facility] [address] [place] [address] Humberto Byers MD Blood 06/01/2025 10:0 7 AM CDT 06/01/2025 10:07 AM CDT Cuauhtemoc Saez [facility] CHEMISTRY ORDERABLES Formerly [facility] Result [facility] [phone] [facility] [address] * (ABNORMAL) POC GLUCOSE (05/18/2025 12:29 PM CDT) Only the most recent of67 resultswithin the time period is included. GLUCOSE POC 237(H) 74 - 99 mg/dL 05/18/2025 12:29 PM CDT [facility] LABORATORY [facility] SPECIMEN SOURCE, GLUCOSE POC Whole Blood 05/18/2025 12:29 PM CDT [facility] Back& [facility] Blood, whole 05/18/2025 12:2 9 PM CDT 05/18/2025 12:40 PM CDT Sarahi Allen MD POINT OF CARE TESTING Final Resu lt [facility] LABORATORY SERVICES - [facility] IRAIS# [id number] [address] [place] [address] * TELEMETRY REPORT (05/17/2025 1:24 PM CDT) Only the most recent of6 resultswithin the time period is included. Provider Scanning ECG ORDERABLES Final Result * (ABNORMAL) CBC WITH DIFFERENTIAL (05/16/2025 7:01 AM CDT) Only the most recent of16 resultswithin the time period is included. WBC 5.2 4.0 - 9.8 K/uL 05/16/2025 7:36 AM CDT [facility]ORATORY SERVICES - [facility] RBC 4.78 4.50 - 5.40 M/uL 05/16/2025 7:36 AM CDT [facility] - [facility] HEMOGLOBIN 14.5 13.6 - 16.5 g/dL 05/16/2025 7:36 AM CDT [facility] SERVICES - [facility] HEMATOCRIT 44.7 40.0 - 48.0 % 05/16/2025 7:36 AM CDT [facility] - [facility] MCV 93.5 82.0 - 99.0 fL 05/16/2025 7:36 AM CDT [facility] - [facility] MCH 30.3 27.2 - 32.6 pg 05/16/2025 7:36 AM CDT [facility] SERVICES - [facility] MCHC 32.4 31.5 - 35.5 g/dL 05/16/2025 7:36 AM CDT [facility] SERVICES - [facility] RDW 16.4(H) 11.5 - 14.5 % 05/16/2025 7:36 AM CDT [facility] SERVICES - [facility] RDW-STDEV 56.5(H) 37.1 - 48.7 fL 05/16/2025 7:36 AM CDT [facility] SERVICES - [facility] PLATELETS 174 140 - 350 K/uL 05/16/2025 7:36 AM CDT [facility] - [facility] MPV 10.7 9.3 - 12.4 fL 05/16/2025 7:36 AM CDT [facility] LABORATORY SERVICES [facility] NEUTROPHILS 62 % 05/16/2025 7:36 AM CDT [facility]ATORY SERVICES [facility] LYMPHOCYTES 17 % 05/16/2025 7:36 AM CDT [facility] SERVICES [facility] MONOCYTES 16 % 05/16/2025 7:36 AM CDT [facility] LAB[facility]ATORY SERVICES [facility] EOSINOPHILS 4 % 05/16/2025 7:36 AM CDT [facility]ATORY SERVICES [facility] BASOPHILS 1 % 05/16/2025 7:36 AM CDT [facility] LAB[facility]ATORY SERVICES [facility] IMMATURE GRANULOCYTES 0 % 05/16/2025 7:36 AM CDT [facility] LAB[facility]ATORY SERVICES [facility] NEUTROPHIL ABSOLUTE 3.21 1.90 - 7.00 K/uL 05/16/2025 7:36 AM CDT [facility] LABORATORY SERVICES - [facility] LYMPHOCYTE ABSOLUTE 0.86 0.70 - 4.50 K/uL 05/16/2025 7:36 AM CDT [facility] LABORATORY SERVICES [facility] MONOCYTE ABSOLUTE 0.82 0.10 - 1.30 K/uL 05/16/2025 7:36 AM CDT [facility] LABORATORY SERVICES [facility] EOSINOPHIL ABSOLUTE 0.22 0.00 - 0.70 K/uL 05/16/2025 7:36 AM CDT [facility] LAB[facility]ATORY SERVICES [facility] BASOPHILS ABSOLUTE 0.05 0.00 - 0.20 K/uL 05/16/2025 7:36 AM T [facility] LABORATORY SERVICES - [facility] IMMATURE GRANULOCYTES ABSOLUTE 0.01 0.00 - 0.03 K/uL 05/16/2025 7:36 AM T [facility] LABORATORY SERVICES [facility] Blood Venipuncture / Unknown 05/16/2025 7:01 AM CDT 05/16/2025 7:17 AM CDT Natacha Ellis CONCRETE BLOCK MAKER HEMATOLOGY ORDERABLES Final Result [facility] LABORATORY SERVICES - [facility] CLIA# [id number] [address] [facility] [address] [place] [address] * MAGNESIUM LEVEL (05/16/2025 7:01 AM CDT) Only the most recent of7 resultswithin the time period is included. Pathologist [facility] MAGNESIUM 2.0 1.6 - 2.4 mg/dL 05/16/2025 8:01 AM CDT [facility] Blood Venipuncture / Unknown 05/16/2025 7:01 AM CDT 05/16/2025 7:17 AM CDT Adrienne Malave LIGHTING DIRECTOR CHEMISTRY ORDERABLES Maryanne l Result Performing Organization Address City/[facility]/ZIP Co de Phone Number [facility] CLIA# [id number] [address] [place] [address] * SYPHILIS SEROLOGY W/REFLEX (05/12/2025 8:33 AM CDT) [facility] T PALLIDUM ANTIBODIES NEGATIVE NEGATIVE 05/14/2025 12:03 PM CDT [email or web address] Comment: No antibodies to T. pallidum [...] 8:59 AM CDT Narrative [facility] - 05/14/2025 12:03 PM CDT Performing Organization Information: Site ID: CB Name: [facility] Address: [address] [place] [address] Director: Dominic Wilcox Adrienne Malave LIGHTING DIRECTOR CHEMISTRY ORDERABLES Maryanne l Result [email or web address] [phone] * ECHOCARDIOGRAM W/ CONTRAST AGENT (05/12/2025 7:56 AM CDT) EJECTION FRACTION 35 INTERFACE SYSTEM 05/12/2025 6:52 AM CDT Narrative INTERFACE SYSTEM - 05/12/2025 8:[address] AM [address]T [address] [address] [email or web address] Transthoracic Echocardiogram Patient: Kameron Man Study ID: ECHOCARDIOGRAM W Gender: M : 1945 Age: 79 Race: CHANDA Height 180.3cm Study Date: 05/12/2025 Weight: 119.8kg Access. #: [id number] BP: *Referring Physician:* Adrienne Malave *Ordering Physician:* Adrienne Malave chemistry lab instructor: Nurse: Indications: Cardiomyopathy. STUDY CONCLUSIONS: SUMMARY: - [...] AM. Prepared and Electronically Authenticated Christina Ott [id number]:25:01 Procedure Note Christina Ott MD - 05/12/[address] [address] [email or web address] Transthoracic Echocardiogram Patient: Kameron Man Study ID: ECHOCARDIOGRAM W Gender: M : 1945 Age: 79 Race: CHANDA Height 180.3cm Study Date: 05/12/2025 Weight: 119.8kg Access. #: [id number] BP: *Referring Physician:Adrienne Recinos *Ordering Physician:* Adrienne Malave chemistry lab instructor: Nurse: Indications: Cardiomyopathy. STUDY CONCLUSIONS: SUMMARY: - [...] AM. Prepared and Electronically Authenticated Christina Ott [id number] us Adrienne Malave NP US ORDERABLES Final Res ult INTERFACE SYSTEM Refer to clinic/hospital department * BLOOD CULTURE (05/11/2025 12:02 PM CDT) Only the most recent of2 resultswithin the time period is included. BLOOD CULTURE No growth 05/16/2025 2:40 PM CDT [facility] Back& [facility] Blood (Peripheral) Venipuncture / Unknown 05/11/2025 12:02 PM CDT 05/11/2025 12:25 PM CDT Narrative [facility] - 05/16/2025 2:40 PM CDT Specimen processed with suboptimal blood volume collected. Adrienne Malave NP MICROBIOLOGY - GENERAL OR DERABLES Final Result Performing Organization Address [facility]/ZIP Co de Phone Number [facility]# [id number] [facility] [place] [address] * HIV DETECTION W/REFLX CONFIRMATION (05/11/2025 12:00 PM CDT) Pathologist [facility] HIV-1 AND 2 ABS AND HIV-1 AG Non-reacti ve Non-reacti ve 05/11/2025 1:29 PM CDT [facility] Blood Venipuncture / Unknown 05/11/2025 12:00 PM CDT 05/11/2025 12:24 PM CDT Adrienne Malave NP CHEMISTRY ORDERABLES Maryanne l Result Performing Organization Address [facility] Co de Phone Number [facility]# [id number] [facility] [place] [address] * EKG 12-LEAD (05/10/2025 4:56 PM CDT) Only the most recent of3 resultswithin the time period is included. 05/10/2025 4:56 PM CDT Narrative INTERFACE SYSTEM - 05/11/2025 9:10 AM CDT [facility] [address] 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 : 1945 Requested By: MINAL Corcoran Order Number: [id number] Reading MD: David Tolbert Measurements Intervals [place] Rate: 80 P: 0 CT: 0 QRS: 160 QRSD: 174 T: 19 QT: 477 QTc: 551 Interpretive Statements Afib/flutter and ventricular-paced rhythm Electronically Signed On 05-11-2025 9:10:08 CDT by David Tolbert Procedure Note David Tolbert MD - 05/11/2025 [facility] [address] [place] [address] Test Date: 2025-05-10 Pat Name: KAMERON MAN Department: 41 Room: [facility] Gender: Male 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: : 1945 Requested By: MINAL [place] Order Number: [id number] Reading MD: David Tolbert Measurements Intervals [place] Rate: 80 P: 0 CT: 0 QRS: 160 QRSD: 174 T: 19 QT: 477 QTc: 551 Interpretive Statements Afib/flutter and ventricular-paced rhythm Electronically Signed On 05-11-2025 9:10:08 CDT by David Tolbert us Adrienne Malave LIGHTING DIRECTOR ECG ORDERABLES Final Res ult INTERFACE SYSTEM Refer to clinic/hospital department * CT CHEST WO CONTRAST (05/10/2025 1:45 PM CDT) Anatomical Region Laterality Modality Chest Computed Tomogra phy 05/10/2025 1:39 PM CDT Impressions 05/10/2025 3:12 PM CDT IMPRESSION: 1. Cardiomegaly. 2. Right-sided thyroid nodule, ultrasound could better evaluate. 3. Coronary artery calcification. DICTATION LOCATION: Location [address] [place], [place] [address]m[place] Narrative 05/10/2025 3:[address] CHEST WO [...] evaluate. 3. Coronary artery calcification. DICTATION LOCATION: [address] us Adrienne Malave NP CT ORDERABLES Final Res ult * CT HEAD CERVICAL SPINE WO CONTRAST (05/10/2025 1:44 PM CDT) Only the most recent of2 resultswithin the time period is included. Anatomical Region Laterality Modality Head Computed Tomogra phy 05/10/2025 1:36 PM CDT Impressions 05/10/2025 2:01 PM CDT IMPRESSION: 1. No acute abnormality of the head or cervical spine. DICTATION LOCATION: Location 1 - [facility] 05/10/2025 2:[address] HEAD WITHOUT [...] cervical spine. DICTATION LOCATION: Location 1 - [facility] Adrienne Malave LIGHTING DIRECTOR CT ORDERABLES Final Res ult * C-REACTIVE PROTEIN (05/10/2025 7:08 AM CDT) Only the most recent of2 resultswithin the time period is included. [facility] CRP <3.0 <5.0 mg/L 05/10/2025 8:29 AM CDT [facility] Blood Venipuncture / Unknown 05/10/2025 7:08 AM CDT 05/10/2025 7:38 AM CDT Adrienne Malave LIGHTING DIRECTOR CHEMISTRY ORDERABLES Maryanne l Result [facility]# [id number] [address] [place] [address] * (ABNORMAL) BRAIN NATRIURETIC PEPTIDE, BNP OR PROBNP (05/10/2025 7:08 AM CDT) Only the most recent of3 resultswithin the time period is included. [facility] PROBNP, N TERMINAL 2,277(H) <449 pg/mL 05/10/2025 11:20 AM CDT [facility] LABORATORY [facility] Comment: INTERPRETIVE COMMENT based on diagnosis: [...] CDT 05/10/2025 7:38 AM CDT Adrienne Malave LIGHTING DIRECTOR CHEMISTRY ORDERABLES Maryanne l Result [facility]# [id number] [address] [facility] [place] [address] * CT ABDOMEN PELVIS W CONTRAST (05/09/2025 3:27 PM CDT) Anatomical Region Laterality Modality Abdomen Computed Tomogra phy 05/09/2025 3:23 PM CDT Impressions 05/09/2025 5:05 PM CDT IMPRESSION: Lumbar spondylosis. Postop lumbar fusion. Renal cysts. Status post prior cholecystectomy. Pacemaker. Patient was scanned with iterative reconstruction to minimize radiation dose. DICTATION LOCATION: Location 1 - [facility] Narrative 05/09/2025 5:[address] SCAN [...] radiation dose. DICTATION LOCATION: Location 1 - [facility] us Ivette Natarajan MD CT ORDERABLES Final [...] 24(H) <=15 ng/L 05/08/2025 4:21 PM CDT [facility] DELTA 6HR TROPONIN T 0 See Interp. 05/08/2025 4:21 PM CDT [facility] Blood Venipuncture / Unknown 05/08/2025 2:54 PM CDT 05/08/2025 3:41 PM CDT [facility] - 05/08/2025 4:21 PM CDT Troponin elevated. Delta indeterminate. Delay in collection of timed specimen beyond recommended collection interval. Results must be interpreted in clinical context. Natacha Henry Caleb CONCRETE BLOCK MAKER CHEMISTRY ORDERABLES Final Result Performing Organization Address City/[facility]/ZIP Co de Phone Number [facility] CLIA# [id number] [address] [place] [address] * (ABNORMAL) TROPONIN 2 HR, 5TH GEN (05/08/2025 10:59 AM CDT) Only the most recent of2 resultswithin the time period is included. TROPONIN T, 2 HR 5TH GEN 25(H) <=15 ng/L 05/08/2025 12:14 PM CDT [facility] DELTA 2HR TROPONIN T 1 See Interp. 05/08/2025 12:14 PM CDT [facility] Blood Venipuncture / Unknown 05/08/2025 10:59 AM CDT 05/08/2025 11:40 AM CDT [facility] - 05/08/2025 12:14 PM CDT Troponin elevated. Delta not changing. Delay in collection of timed specimen beyond recommended collection interval. Results must be interpreted in clinical context. Dealdrive CONCRETE BLOCK MAKER CHEMISTRY ORDERABLES Final Result Performing Organization Address City/[facility]/ZIP Co de Phone Number [facility] CLIA# [id number] [address] [place] [address] * (ABNORMAL) TROPONIN BASELINE, 5TH GEN (05/08/2025 8:55 AM CDT) Only the most recent of2 resultswithin the time period is included. TROPONIN T, BASELINE 5TH GEN 24(H) <=15 ng/L 05/08/2025 10:21 AM CDT [facility] LABORATORY [facility] Blood Venipuncture / Unknown 05/08/2025 8:55 AM CDT 05/08/2025 9:29 AM CDT Narrative [facility] - 05/08/2025 10:21 AM CDT Troponin elevated. Natacha Ellis APRN CHEMISTRY ORDERABLES Final Result [facility] CLIA# [id number] [address] [place] [address] * (ABNORMAL) LIPASE (05/08/2025 8:55 AM CDT) Pathologist [facility] LIPASE 12(L) 13 - 60 U/L 05/08/2025 10:21 AM CDT [facility] Back& [facility] Blood Venipuncture / Unknown 05/08/2025 8:55 AM CDT 05/08/2025 9:29 AM CDT Ivette Natarajan MD CHEMISTRY ORDERABLES Final Result [facility] CLIA# [id number] [address] [place] [address] * (ABNORMAL) URINALYSIS WITH REFLEX MICROSCOPIC (05/08/2025 7:50 AM CDT) Only the most recent of2 resultswithin the time period is included. COLOR UA Yellow Pale to Dark Yellow 05/08/2025 8:23 AM CDT [facility] LABORAT[facility] CLARITY UA Clear Clear 05/08/2025 8:23 AM CDT [facility] SPECIFIC GRAVITY UA 1.014 1.003 - 1.035 05/08/2025 8:23 AM CDT [facility] LABORATORY SERVICES - . [facility] PH UA 6.0 5.0 - 8.0 05/08/2025 8:23 AM CDT [facility] LABORATORY SERVICES - . [facility] LEUKOCYTE ESTERASE UA Negative Negative 05/08/2025 8:23 AM CDT [facility]ORATORY SERVICES - [facility] NITRITE UA Negative Negative 05/08/2025 8:23 AM CDT [facility] LABORATORY SERVICES - . [facility] PROTEIN UA Negative Negative 05/08/2025 8:23 AM CDT [facility] LABORATORY SERVICES - . [facility] GLUCOSE UA 3+(A) Negative 05/08/2025 8:23 AM CDT [facility] LABORATORY SERVICES - . [facility] KETONES UA 1+(A) Negative 05/08/2025 8:23 AM T [employer] SERVICES - . [facility] UROBILINOGEN UA Normal <2.0 mg/dL 8:23 AM CDT [facility] LABORATORY SERVICES - . [facility] BILIRUBIN UA Negative Negative 05/08/2025 8:23 AM CDT [facility] LABORATORY SERVICES - . [facility] BLOOD UA Negative Negative 05/08/2025 8:23 AM CDT [facility] LABORATORY SERVICES - . [facility] WBC UA 0-2 0 - 2 /hpf 05/08/2025 8:23 AM CDT [facility] LAB[facility]ATORY SERVICES - . [facility] RBC UA 0-2 0 - 2 /hpf 05/08/2025 8:23 AM CDT [facility] LABORATORY SERVICES - . [facility] BACTERIA UA Negative Negative /hpf 05/08/2025 8:23 AM T [facility] LABORATORY SERVICES - . [facility] HYALINE CAST 0-2 None Seen, 0-2 /lpf 05/08/2025 8:23 AM CDT [facility] LABORATORY SERVICES - . [facility] GRANULAR CAST 0-2(A) None Seen /lpf 05/08/2025 8:23 AM T [facility] LABORATORY SERVICES - . [facility] Urine URINE SPECIMEN OBTAINED BY CLEAN CATCH PROCEDURE / Unknown Collection / Unknown 05/08/2025 7:50 AM CDT 05/08/2025 7:53 AM CDT Minal Villegas MD URINE ORDERABLES Final Result [facility]ORY [facility]# [id number] [address] [place] [address] * (ABNORMAL) DRUG SCREEN, URINE (05/08/2025 7:49 AM CDT) [facility] AMPHETAMINE QUAL, URINE Negative Negative 05/08/2025 8:25 AM CDT [facility] Back& [facility] BARBITURATE QUAL, URINE Negative Negative 05/08/2025 8:25 AM T [facility] BENZODIAZEPINE QUAL, URINE Presumptive Positive(A) Negative 05/08/2025 8:25 AM [facility] Back& [facility] COCAINE QUAL URINE Negative Negative 05/08/2025 8:25 AM [facility] Back& [facility] OPIATE QUAL, URINE Negative Negative 05/08/2025 8:25 AM [facility] Back& [facility] CANNABINOIDS QUAL, URINE Negative Negative 05/08/2025 8:25 AM [facility] Back& [facility] PCP QUAL, URINE Negative Negative 8:25 AM [facility] Back& [facility] OXYCODONE QUAL, URINE Negative Negative 05/08/2025 8:25 AM [facility] Back& [facility] METHADONE QUAL, URINE Negative Negative 05/08/2025 8:25 AM [facility] Back& [facility] FENTANYL QUAL, URINE Negative Negative 05/08/2025 8:25 AM [facility] CREATININE, URINE 87.5 40.0 - 278.0 mg/dL 05/08/2025 8:25 AM [facility] Back& [facility] Comment:Reference Range vari es with fluid intake and diet. Urine URINE SPECIMEN OBTAINED BY CLEAN CATCH PROCEDURE / Unknown Collection / Unknown 05/08/2025 7:49 AM CDT 05/08/2025 7:54 AM CDT [facility] - 05/08/2025 8:25 AM CDT This test [...] Brooke MD URINE ORDERABLES Fin al Result [facility] LABORATORY SERVICES [facility]# [id number] [address] [place] [address] * XR ABDOMEN 1 VW (05/07/2025 11:40 PM CDT) Anatomical Region Laterality Modality Abdomen Computed Radiogr aphy 05/07/2025 11:4 0 PM CDT Impressions 05/08/2025 6:09 AM CDT IMPRESSION: 1. Nonspecific bowel gas pattern with no evidence of bowel obstruction. DICTATION LOCATION: Location 2 - [facility] Narrative 05/08/2025 6:09 AM CDT XR ABDOMEN 1 VW DATE: 05/07/2025 11:40 PM HISTORY: Pain, Comment: persistent nausea. Acute metabolic encephalopathy; Type 2 diabetes mellitus with diabetic polyneuropathy, with long-term current use of insulin ([facility]); Type 2 diabetes mellitus with diabetic polyneuropathy, with long-term current use of insulin ([facility]); Ischemic cardiomyopathy; History of TIA (transient ischemic [...] polyneuropathy, with long-term current use of insulin ([facility]); Type 2 diabetes mellitus with diabetic polyneuropathy, with long-term current use of insulin ([facility]); Ischemic cardiomyopathy; History of TIA (transient ischemic [...] bowel obstruction. DICTATION LOCATION: Location 2 - [facility] Natacha Ellis APRN DIAGNOSTIC IMAGING ORDERABL ES Final Result * RESPIRATORY PATHOGEN PCR PANEL (05/07/2025 4:48 PM CDT) Pathologist [facility] Respiratory Pathogen PCR Panel NOT DETECTED No respiratory pathogen nucleic acids detected. 05/07/2025 6:13 PM CDT [facility] Back& [facility] COVID-19 PCR NOT DETECTED Not Detected 05/07/2025 6:13 PM CDT [facility] Back& [facility] Upper Respiratory ENTIRE NASOPHARYNX / Unknown Collection / Unknown 05/07/2025 4:48 PM CDT 05/07/2025 4:56 PM CDT Narrative [facility] Back& [facility] - 05/07/2025 6:13 PM CDT The [...] pertussis Bordetella parapertussis Chlamydophila pneumoniae Mycoplasma pneumoniae us Minal Villegas MD MICROBIOLOGY - GENERAL ORDERAB LES Final Result [facility] LABORATORY SERVICES - [facility] CLIA# [id number] [address] [place] [address] * (ABNORMAL) COMPREHENSIVE METABOLIC PANEL (05/07/2025 2:11 PM CDT) Only the most recent of3 resultswithin the time period is included. SODIUM 140 136 - 145 mmol/L 05/07/2025 2:50 PM CDT [facility] LABORATORY SERVICES - . [facility] POTASSIUM 4.1 3.5 - 5.0 mmol/L 05/07/2025 2:50 PM CDT [facility] LAB[facility]ATORY SERVICES - . [facility] CHLORIDE 103 98 - 107 mmol/L 05/07/2025 2:50 PM CDT [facility] LABORATORY SERVICES - . [facility] CO2 27 22 - 29 mmol/L 05/07/2025 2:50 PM CDT [facility] LABORATORY SERVICES - . [facility] CALCIUM 8.7 8.6 - 10.2 mg/dL 05/07/2025 2:50 PM CDT [facility] LABORATORY SERVICES - . [facility] BUN 12 8 - 23 mg/dL 05/07/2025 2:50 PM CDT [facility] LABORATORY SERVICES - . [facility] CREATININE 1.01 0.67 - 1.17 mg/dL 05/07/2025 2:50 PM CDT [facility] LABORATORY SERVICES - [facility] Comment:The GFR result is no t clinically significant on patients <18 or >70 years of age. GLUCOSE 224(H) 74 - 99 mg/dL 05/07/2025 2:50 PM CDT [facility] LABORATORY SERVICES - . [facility] TOTAL PROTEIN 5.7(L) 6.7 - 8.6 g/dL 05/07/2025 2:50 PM CDT [facility] LABORATORY SERVICES - . [facility] ALBUMIN 3.7 3.5 - 5.2 g/dL 05/07/2025 2:50 PM CDT [facility] LABORATORY SERVICES - . [facility] BILIRUBIN TOTAL 0.6 0.0 - 1.1 mg/dL 05/07/2025 2:50 PM CDT [facility] LABORATORY SERVICES - . [facility] ALKALINE PHOSPHATASE 79 40 - 129 U/L 05/07/2025 2:50 PM CDT [facility] LABORATORY SERVICES - . [facility] AST 27 <41 U/L 05/07/2025 2:50 PM CDT [facility] ALT 19 <42 U/L 05/07/2025 2:50 PM CDT [facility] GFR >60 mL/min/1.7 3 sq meter 05/07/2025 2:50 PM CDT [facility] Comment:eGFR calculated with 2020 CKD-EPI equation. Vegetarian diet, extremely high or low muscle mass, and may affect results. Cystatin C with Glomerular Filtration Rate is a suitable alternative for these patients. ANION GAP 10 8 - 16 mmol/L 05/07/2025 2:50 PM CDT [facility] Blood Venipuncture / Unknown 05/07/2025 2:11 PM CDT 05/07/2025 2:16 PM CDT Narrative [facility] - 05/07/2025 2:50 PM CDT Samples containing indocyanine green cause interferences on Total and/or Direct Bilirubin and must not be measured. Minal Villegas MD CHEMISTRY ORDERABLES Final Res ult [facility]# [id number] [address] [facility] [place] [address] * CT HEAD WO CONTRAST (05/05/2025 11:11 AM CDT) Anatomical Region Laterality Modality Head Computed Tomogra phy 05/05/2025 11:0 6 AM CDT Impressions 05/05/2025 12:17 PM CDT IMPRESSION: 1. No acute intracranial process. DICTATION LOCATION: Location 1 - [facility] Narrative 05/05/2025 12:17 PM CDT EXAMINATION: CT [...] intracranial process. DICTATION LOCATION: Location 1 - [facility] Randa Sosa MD CT ORDERABLES Final Resu lt * GI PATHOGEN PCR PANEL (05/04/2025 7:00 PM CDT) GI Pathogen PCR panel NOT DETECTED No nucleic acids detected. 05/04/2025 8:33 PM CDT [facility] Stool STOOL SPECIMEN / Unknown 05/04/2025 7:00 PM CDT 05/04/2025 7:00 PM CDT Narrative [facility] - 05/04/2025 8:33 PM CDT The Film [...] OR DERABLES Final Result Performing Organization Address [facility]/ZIP Co de Phone Number [facility] Back& [facility]# [id number] [address] [facility] [place] [address] * VITAMIN B12 AND FOLATE (05/04/2025 4:11 PM CDT) Only the most recent of2 resultswithin the time period is included. VITAMIN B12 534 232 - 1,245 pg/mL 05/04/2025 5:19 PM CDT [facility] Back& [facility] Comment:It has been reported that between 5 to 10% of patients with values between 200 and 400 pg/mL may experience neuropsychiatric and hematologic abnormalities due to occult B12 deficiency. Less than 1% of patients with values above 400 pg/mL will have symptoms. FOLATE, SERUM >20.0 >4.5 ng/mL 05/04/2025 5:19 PM CDT [facility] Back& [facility] Blood Venipuncture / Unknown 05/04/2025 4:11 PM CDT 05/04/2025 4:24 PM CDT Jessica Aragon PA-C CHEMISTRY ORDERABLES Maryanne l Result Performing Organization Address City/[facility]/ZIP Co de Phone Number [facility] Back& [facility] CLIA# [id number] [address] [facility] [place] [address] * (ABNORMAL) KETONES/BETA HYDROXYBUTYRATE (05/04/2025 9:42 AM CDT) Pathologist [facility] BETA HYDROXYBUTYRATE 2.2(H) <0.4 mmol/L 05/04/2025 11:19 AM CDT [facility] LABORATORY [facility] Blood Venipuncture / Unknown 05/04/2025 9:42 AM CDT 05/04/2025 9:45 AM CDT Randa Sosa MD CHEMISTRY ORDERABLES Final Result [facility]# [id number] [address] [place] [address] * TSH (05/04/2025 9:42 AM CDT) Pathologist [facility] TSH 1.82 0.27 - 4.20 uIU/mL 05/04/2025 10:30 AM CDT [facility] LABORATORY [facility] Blood Venipuncture / Unknown 05/04/2025 9:42 AM CDT 05/04/2025 9:45 AM CDT Jessica Aragon PA-C CHEMISTRY ORDERABLES Maryanne l Result [facility]# [id number] [address] [place] [address] * (ABNORMAL) BLOOD GAS VENOUS (05/04/2025 9:42 AM CDT) Pathologist [facility] PH, VENOUS 7.36 7.32 - 7.43 05/04/2025 9:50 AM CDT [facility] LABORATORY [facility] PCO2 VENOUS 42 38 - 50 mm Hg 05/04/2025 9:50 AM CDT [facility] LABORATORY [facility] PO2 VENOUS 96(H) 25 - 40 mm Hg 05/04/2025 9:50 AM CDT [facility] LABORATORY SERVICES - [facility] HCO3 VENOUS 23 22 - 29 mmol/L 9:50 AM CDT [facility] LABORATORY [facility] BASE EXCESS VENOUS -1.7 Reference Range Not Established mmol/L 05/04/2025 9:50 AM CDT [facility] LABORATORY [facility] HEMOGLOBIN VENOUS 13.7 No Ref Range Estab g/dL 05/04/2025 9:50 AM CDT [facility] LABORATORY [facility] O2 SAT EST VENOUS 98(H) 40 - 70 % 05/04/2025 9:50 AM CDT [facility] LABORATORY [facility] Blood, venous 05/04/2025 9:4 2 AM CDT 05/04/2025 9:45 AM CDT us Akosua Bourgeois MD ABG ORDERABLES Final Resu lt Performing Organization Address City/[facility]/ZIP Co de Phone Number [facility] CLIA# [id number] [address] [place] [place] [address] * CT PROGRAM EVAL, IMPLANT DEVICE CARDVERT/DEFIB,MULTI-LEAD W/IN GLOBAL (04/18/2025 3:01 PM CDT) Only the most recent of3 resultswithin the time period is included. 04/18/2025 3:01 PM CDT Narrative INTERFACE SYSTEM - 04/19/2025 8:09 AM CDT Sarath Alatorre, RN 04/19/2025 8:11 AM ICD interrogation: GLOBAL [...] - 16.5 g/dL 03/17/2025 5:06 PM CDT [facility] LABORATORY SERVICES [facility] HEMATOCRIT 36.0(L) 40.0 - 48.0 % 03/17/2025 5:06 PM CDT [facility] LABORATORY SERVICES [facility] Blood Venipuncture / Unknown 03/17/2025 4:23 PM CDT 03/17/2025 4:53 PM CDT Nova Marks LIGHTING DIRECTOR HEMATOLOGY ORDERABLES Final Result Performing Organization Address [facility] Co de Phone Number [facility] LABORATORY [facility] CLIA# [id number] [address] [place] [address] * (ABNORMAL) IRON, TIBC, AND PERCENT SATURATION (03/17/2025 1:10 PM CDT) IRON 54(L) 59 - 158 ug/dL 03/17/2025 1:51 PM CDT [facility] LABORATORY SERVICES [facility] TIBC 325 250 - 450 ug/dL 03/17/2025 1:51 PM CDT [facility] LABORATORY SERVICES [facility] IRON % SATURATION 17(L) 20 - 50 % 03/17/2025 1:51 PM CDT [facility] LABORATORY SERVICES [facility] TRANSFERRIN 256 200 - 360 mg/dL 03/17/2025 1:51 PM CDT [facility] LABORATORY SERVICES [facility] Blood Venipuncture / Unknown 03/17/2025 1:10 PM CDT 03/17/2025 1:10 PM CDT Nova Marks NP CHEMISTRY ORDERABLES Final Result Performing Organization Address City/[facility] Co de Phone Number [facility] LABORATORY [facility] CLIA# [id number] [address] [place] [id number] * ECHO LIMITED WO DOPPLER (03/17/2025 12:10 PM CDT) EJECTION FRACTION EF: INTERFACE SYSTEM 03/17/2025 11:5 6 AM CDT Narrative INTERFACE SYSTEM - 03/17/2025 1:[address] [address] [email or web address] Transthoracic Echocardiogram (Report amended ) Patient: Kameron Man Study ID: ECHO LIMITED WO Gender: M : 1945 Age: 79 Race: CHANDA Height 180.3cm Study Date: 03/17/2025 Weight: 118.8kg Access. #: [id number] BP: *Referring Physician:* Adrienne Mullen *Ordering Physician:* Adrienne Mullen chemistry lab instructor: Nurse: Indications: Evaluate for pericardial effusion. Limited [...] Study time: 11:56 AM. Amended Stanislaw Lerner [id number] Procedure Note Stanislaw Lerner MD - 03/17/[address] [address] [email or web address] Transthoracic Echocardiogram (Report amended ) Patient: Kameron Man Study ID: ECHO LIMITED WO Gender: M : 1945 Age: 79 Race: CAU Height 180.3cm Study Date: 03/17/2025 Weight: 118.8kg Access. #: [id number] BP: *Referring Physician:Adrienne Ford *Ordering Physician:Adrienne Ford chemistry lab instructor: Nurse: Indications: Evaluate for pericardial effusion. Limited [...] Study date: 03/17/2025. Study time: 11:56 AM. Stanislaw Andrea [id number] Adrienne Mullen LIGHTING DIRECTOR US ORDERABLES Edited Res ult - Final INTERFACE SYSTEM Refer to clinic/hospital department * POC LACTIC ACID (03/17/2025 10:56 AM CDT) LACTIC ACID POC 1.3 <=2.0 mmol/L 03/17/2025 10:56 AM CDT [facility] LABORATORY SERVICES - [facility] SPECIMEN SOURCE, GASES POC Blank 03/17/2025 10:56 AM CDT [facility] LABORATORY SERVICES - [facility] COMMENT, GASES POC Responsible Clinical Caregiver notified 03/17/2025 10:56 AM CDT [facility] LABORATORY SERVICES - [facility] Blood 03/17/2025 10:5 6 AM CDT 03/17/2025 10:58 AM CDT Aravind Jones DO POINT OF CARE TESTING Final Resu lt [facility] LABORATORY SERVICES - [facility] CLIA# [id number] [address] [place] [address] * TYPE AND SCREEN (03/17/2025 10:50 AM CDT) ABO GROUP A 03/17/2025 12:00 PM CDT [facility] LABORATORY SERVICES -- .[facility] RH (D) TYPE Positive 03/17/2025 12:00 PM CDT [facility] LABORATORY SERVICES -- [facility] ANTIBODY SCREEN Negative 03/17/2025 12:00 PM CDT [facility] LABORATORY SERVICES -- [facility] Blood Venipuncture / Unknown 03/17/2025 10:50 AM CDT 03/17/2025 10:58 AM CDT Aravind Jones DO BLOOD BANK ORDERABLES Edited Res ult - Final [facility] LABORATORY SERVICES -- [facility]# [id number] [address] [place] [place] [address] * XR CHEST PA OR AP 1 [...] DIAGNOSTIC IMAGING ORDERABLES Fi nal Result * (ABNORMAL) HEMOGLOBIN A1C (03/09/2025 4:18 PM CDT) HEMOGLOBIN A1C 9.4(H) <5.7 % 03/09/2025 10:32 PM CDT [facility] - [facility] EST. AVG GLUCOSE, A1C 223 mg/dL 03/09/2025 10:32 PM CDT [facility] Blood Venipuncture / Unknown 03/09/2025 4:18 PM CDT 03/09/2025 4:29 PM CDT Narrative [facility] - 03/09/2025 10:32 PM CDT HGB A1C INTERPRETATION NORMAL: <5.7% PRE-DIABETES: 5.7 - 6.4% DIABETES: 6.5% OR GREATER Natacha Ellis CONCRETE BLOCK MAKER CHEMISTRY ORDERABLES Final Result [facility] CLIA# [id number] [address] GARCIAPAIGE MADRIDSULEMA AMARAL [address] * (ABNORMAL) LIPID PANEL (05/21/2022 2:46 PM CDT) Pathologist [facility] CHOLESTEROL 153 <200 mg/dL [facility] [employer] griselda Lopez HDL 48 > OR = 40 mg/dL [employer] griselda Lopez TRIGLYCERIDE 266(H) <150 mg/dL [facility] CablesBianca Lopez Comment: If a non-fasting specimen was collected, consider repeat triglyceride testing on a fasting specimen if clinically indicated. Darshan et al. J. of Clin. Lipidol. 2015;9:129-169. LDL CALCULATED 70 mg/dL (calc) [facility] [employer] CablesBianca Lopez Comment: Reference range: <100 Desirable range <100 mg/dL for primary prevention; <70 mg/dL for patients with CHD or diabetic patients with > or = 2 CHD risk factors. LDL-C is now calculated using the Girma-Rachel calculation, which is a validated novel method providing better accuracy than the Friedewald equation in the estimation of LDL-C. Girma YING et al. GINA. 2013;310(19): 3409-5544 (http://education.[employer]/faq/QVX276) CHOL/HDL RATIO 3.2 <5.0 (calc) Bruin [facility] CablesBianca Lopez TOTAL NON-HDL CHOL(LDL+VLDL) 105 <130 mg/dL (calc) [facility] Lopez Comment: For patients with diabetes plus 1 major ASCVD risk factor, treating to a non-HDL-C goal of <100 mg/dL (LDL-C of <70 mg/dL) is considered a therapeutic option. Test Performed at: [facility] [address] [address] Humberto Juarez Vo Blood 05/21/2022 2:46 PM CDT 05/21/2022 2:46 PM CDT Dominic Young MD CHEMISTRY ORDERABLES Final Resul t [facility] [phone] [facility] [address] [place] [address] * POC OCCULT BLOOD 1 CARD (01/21/2021 2:16 PM HSE MANAGER) OCCULT BLOOD 1 CARD POC Negative Negative 01/21/2021 2:16 PM HSE MANAGER [employer] [facility] BUSINESS SUPPORT ASSISTANT NAME POC JAZZMINE SHERMAN 01/21/2021 2:16 PM HSE MANAGER [facility] Stool STOOL SPECIMEN / Unknown 01/21/2021 2:16 PM HSE MANAGER 01/22/2021 10:40 AM HSE MANAGER Minal Villegas MD POINT OF CARE TESTING Final Re sult [facility] CLIA# [id number] [address] [place] [place] [address] from Last 3 Months or Most Recently Relevant [place] [address] MEDICARE PART A AND B [facility] SUPP RX [employer] Medicare Part D RX [employer] PL[employer] (INTERNAL) [facility] Internal Plans RX [employer] Commercial Advance Directives For more information, please contact: [phone] Documents on File Type Date Recorded Patient Salesperson Driver Expl anation Advance Directive POA 02/07/2021 9:09 [...] 3:25 PM 03/11/2025 6:40 PM Care Teams Farmworker Cranberry Relationship Specialty Start Date End Date Eric Pretty MD [address] [place] [address] PCP - General Internal Medicine 11/24/19
--- OUTSIDE RECORDS SUMMARY | 2025-06-14 08:57 | XMS_ITS | Continuity of Care Document ---
Author Organization [facility] [place] [address] [place] [address] Phone Care Team Providers Care Disk Grinder Name Role Phone Chance Monroy Unavailable Unavailable Procedures Procedure Date Visual Field Examination(s) Office/outpatient Visit, Est Corneal Pachymetry Fundus Photography W/ Report Eye Exam, New Patient Advance Directives Directive Yes / No Effective Date File Name No Information Encounters Encounter Description Practice Location Reason(s) For Visit Diagnoses Date Provider Providers Copied on Encounter Located within [facility], [address] [place] [address] [address], [place], [place], [address], tel:[phone] [facility] No Information [address], [place], [address], . tel:[phone] Referring Provider: Alondra Thomas [address], [place], [address]. tel:[phone] Office/outpat ient Visit, Est Located within [facility], [address] [place] [address] [address], [place], [place], [address], tel:[phone] [facility] No Information 0[address], [place], [address], [place]. tel:[phone] Referring Provider: Chance Wagner, [address], [place], [address]. tel:[phone] Located within [facility], [address], [place], [place], [address], [place] tel:[phone] [facility] No Information [address] , [address], [place], [address], [place]. tel:[phone] Family History Family Member Type Diagnosis Age [...]
--- OUTSIDE RECORDS SUMMARY | 2025-06-14 08:57 | XMS_ITS | Continuity of Care Document ---
Author Organization [facility] Address [address] [place] [address] Phone Care Team Providers Care Diver Tender Name Role Phone Wally Ray MD Unavailable [...] OFFICE CONSULTATION POSTOP FOLLOW-UP VISIT OFFICE/OUTPATIENT VISIT [facility] Advance Directives Directive Yes / No Effective Date File Name No Information Encounters Encounter Description Practice Location Reason(s) For Visit Diagnoses Date Provider Providers Copied on Encounter OFFICE CONSULTATION [facility], [address] [facility] [address], [place], [address], [place] tel:[phone] [facility] Eloy Biceps tendon tear [address], [place], [place], [address] . tel: [phone] Referring Provider: Master Melendez, [address], [place], [address] . tel:[phone] [facility], [address] [facility] [address], [place], [address], tel:[phone] [facility] Onychia of finger [address]. [address] [place], [place], [address] . tel: [phone] OFFICE/OUTPATI ENT VISIT [facility], [address] [facility], [place], [address], tel:[phone] [facility] [address] [place], [place], [address] . tel: [phone] Family History Family Member Type Diagnosis Age [...]
--- OUTSIDE RECORDS SUMMARY | 2025-06-14 08:59 | XMS_ITS | Encounter Summary ---
Author Organization [facility] Address [address] [address] Care Team Providers Care Sales Representative Printing Supplies Name Role Phone Jarvis Harding Primary Care Provider [phone] Jarvis Harding Primary Care Provider [phone] Kindra Fernandez MD Primary Care Provider Eric Pretty MD Primary Care Provider [phone] Kale MONTANA MD, Master Hunt Unavailable [phone] Dominic Young MD Unavailable [phone] Carlos Hernandez MD Unavailable [phone] Encounter Details Date Type Department Care Team (Late st Contact Info) Description 12/17/2016 Orders Only [facility] ProviderChuck MD [address] [place] [address] Social History Tobacco Use Types Packs/Day Years Used Date Smoking Tobacco: Former Alcohol Use Standard Drinks/Week Comments Yes 0 (1 standard drink = 0.6 oz pur e alcohol) Sex and Gender Information Value Date Recorded Sex Assigned at Not on file Legal Sex Male 3:50 PM STUDENT FINANCE ADVISOR Gender Identity Not on file Sexual [...] on filedocumented in this encounter Care Teams Sales Representative Printing Supplies Relationship Specialty Start Date End Date Jarvis Harding [address] [place] [address] PCP - General 02/14/17 08/27/17 Jarvis Harding [address] [place] [address] PCP - General 07/13/14 02/13/17 Kindra Fernandez MD [address] [place] [place] [address] PCP - General Family Practice 08/28/17 01/27/18 Eric Pretty MD [address] [place] [address] PCP - General Internal Medicine 01/28/18 Master Henley III, MD [address] [place] [address] Consulting Physician Rheumatology 01/28/18 01/26/24 Dominic Young MD [address] [place] [address] Consulting Physician Cardiology 01/04/20 Carlos Hernandez MD [address] [place] [address] Consulting Physician Rheumatology 01/27/24 documented as of this encounter
--- OUTSIDE RECORDS SUMMARY | 2025-06-14 08:59 | XMS_ITS | Encounter Summary ---
Author Organization [facility] Address [address] [place] [address] Care Team Providers Care Wood Gang Sawyer Name Role Phone Jarvis Harding Primary Care Provider Jarvis Harding Primary Care Provider Jarvis Harding Primary Care Provider Jarvis Harding Primary Care Provider Jarvis Harding Primary Care Provider Jarvis Harding Primary Care Provider Kindra Fernandez MD Primary Care Provider Eric Pretty MD Primary Care Provider [phone] Kale MONTANA MD, John J. 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 Gender Identity Not on file Sexual Orientation [...] on filedocumented in this encounter Care Teams Wood Gang Sawyer Relationship Specialty Start Date End Date Jarvis Hadring [address] [place] [address] PCP - General 02/14/17 08/27/17 Jarvis Harding [address] [place] [address] PCP - General 07/13/14 02/13/17 Jarvis Harding [address] [place] [address] PCP - General 03/03/12 07/12/14 Jarvis Harding [address] [place] [address] PCP - General 02/18/12 03/02/12 Jarvis Harding [address] [place] [address] PCP - General 02/11/12 02/17/12 Jarvis Harding [address] [place] [address] PCP - General 07/24/11 02/10/12 Kindra Fernandez MD [address] [place] [address] PCP - General Family Practice 08/28/17 01/27/18 Eric Pretty MD [address] [place] [address] PCP - General Internal Medicine 01/28/18 Master Henley III, MD [address] [facility] [address] [place] [address] Consulting Physician Rheumatology 01/28/18 01/26/24 Dominic Young MD [address] [place] [address] Consulting Physician Cardiology 01/04/20 Carlos Hernandez MD [address] [place] [address] Consulting Physician Rheumatology 01/27/24 documented as of this encounter
--- OUTSIDE RECORDS SUMMARY | 2025-06-14 08:59 | XMS_ITS | Encounter Summary ---
Author Organization [facility] Address 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 Gender Identity Not on file Sexual Orientation Not on file documented as of this encounter Plan of Treatment Upcoming Encounters Date Type Department Care Team (Late st Contact Info) Description 07/11/2025 4:15 PM CDT Telephone Check Up [facility] [place] [facility] At [address] [place] [address] Dominic oYung MD [address] [place] [address] [address] [place] [address] 07/20/2025 8:00 AM CDT Procedure visit [facility] AT [address] [place] [address] 07/26/2025 2:00 PM CDT Office Visit [facility] AT [address] [place] [address] Cuauhtemoc Saez DNP [address] [place] [address] [address] [place] [address] 08/08/2025 12:00 PM CDT Office Visit [facility] [place] [facility] At [address] [place] [address] Dominic Young MD [address] [place] [address] [address] [place] [address] documented as of this encounter Visit Diagnoses Not on filedocumented in this encounter Care Teams Box Printing Machine Operator Relationship Specialty Start Date End Date Eric Pretty MD [address] [place] [address] PCP - General Internal Medicine 11/24/19 documented as of this encounter
--- OUTSIDE RECORDS SUMMARY | 2025-06-14 08:59 | XMS_ITS | Clinical Summary ---
Author Organization [facility] Address [address] [place] [address] Care Team Providers Care Import Coordination And Production Head Name Role Phone Eric Pretty MD Primary Care Provider [phone] Source Comments [facility],non-owned Affiliates and Associated Physician Practices is amultiple site organization consisting of ambulatory clinics and hospital sitesin [place], [place], [place] and [place]. This disclosure is being madepursuant to the Care Everywhere program and may not contain all information available regarding this patient. 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
--- OUTSIDE RECORDS SUMMARY | 2025-06-14 08:59 | XMS_ITS | Encounter Summary ---
Author Organization [facility] Address [address] [place] [address] Care Team Providers Care Cloth Boil Off Machine Operator Name Role Phone Eric Pretty MD Primary Care Provider [phone] Dominic Young MD Unavailable [phone] Carlos Hernandez MD Unavailable [phone] Encounter Details Date Type Department Care Team (Late st Contact Info) Description 06/13/[address] 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 documented as of this encounter Procedures Procedure Name Priority Date/Time Associated Diagnosis Comments CARDIOLOGY DOCUMENT SCAN Routine 06/11/2025 3:50 PM CDT documented in this encounter Results * Cardiology Document Scan (06/11/2025 3:50 PM CDT) Anatomical Region Laterality Modality Other Result [facility] Farhad Valdes MD CV CARDIAC SERVICES PROCEDURES F inal Result documented in this encounter Visit Diagnoses Not on filedocumented in this encounter Care Teams Cloth Boil Off Machine Operator Relationship Specialty Start Date End Date Eric Pretty MD [address] [place] [address] PCP - General Internal Medicine 01/28/18 Dominic Young MD [address] [facility] [address] [place] [address] Consulting Physician Cardiology 01/04/20 Carlos Hernandez MD [address] [place] [address] Consulting Physician Rheumatology 01/27/24 documented as of this encounter
--- OUTSIDE RECORDS SUMMARY | 2025-06-14 08:59 | XMS_ITS | Encounter Summary ---
Author Organization [facility] Healthcare Address [address] [place] [address] Care Team Providers Care Foil Spooler Name Role Phone Eric Pretty MD Primary Care Provider [phone] Kale MONTANA MD, Master Hunt Unavailable [phone] Dominic Young MD Unavailable [phone] Carlos Hernandez MD Unavailable [phone] Encounter Details Date Type Department Care Team (Late st Contact Info) Description 04/14/2019 Telephone [facility] at [facility] [address] [place] [address] Kia Kwan MD [address] [address] [place] [address] Social History Tobacco Use Types [...] on file 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 documented as of this encounter Visit Diagnoses Not on filedocumented in this encounter Care Teams Foil Spooler Relationship Specialty Start Date End Date Eric Pretty MD [address] [place] [address] PCP - General Internal Medicine 01/28/18 Master Henley III, MD [address] [place] [address] Consulting Physician Rheumatology 01/28/18 01/26/24 Dominic Young MD [address] [place] [address] Consulting Physician Cardiology 01/04/20 Carlos Hernandez MD [address] [place] [address] Consulting Physician Rheumatology 01/27/24 documented as of this encounter
--- OUTSIDE RECORDS SUMMARY | 2025-06-14 08:59 | XMS_ITS | Encounter Summary ---
Author Organization [facility] Address [address] [address] Care Team Providers Care Consulting Group Analyst Name Role Phone Jarvis Harding Primary Care Provider [phone] Jarvis Harding Primary Care Provider [phone] Kindra Fernandez MD Primary Care Provider Eric Pretty MD Primary Care Provider [phone] Kale MONTANA MD, Master Hunt Unavailable [phone] Dominic Young MD Unavailable [phone] Carlos Hernandez MD Unavailable [phone] Encounter Details Date Type Department Care Team (Late st Contact Info) Description 11/07/2016 Orders Only [facility] ProviderChuck MD [address] [place] [address] Social History Tobacco Use Types Packs/Day Years Used Date Smoking Tobacco: Former Alcohol Use Standard Drinks/Week Comments Yes 0 (1 standard drink = 0.6 oz pur e alcohol) Sex and Gender Information Value Date Recorded Sex Assigned at Not on file 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 Gender Identity Not on file Sexual [...] on filedocumented in this encounter Care Teams Consulting Group Analyst Relationship Specialty Start Date End Date Jarvis Harding [address] [place] [address] PCP - General 02/14/17 08/27/17 Jarvis Harding [address] [place] [address] PCP - General 07/13/14 02/13/17 Kindra Fernandez MD [address] [place] [place] [address] PCP - General Family Practice 08/28/17 01/27/18 Eric Pretty MD [address] [place] [address] PCP - General Internal Medicine 01/28/18 Master Henley III, MD [address] [place] [address] Consulting Physician Rheumatology 01/28/18 01/26/24 Dominic Young MD [address] [place] [address] Consulting Physician Cardiology 01/04/20 Carlos Hernandez MD [address] [place] [address] Consulting Physician Rheumatology 01/27/24 documented as of this encounter
--- OUTSIDE RECORDS SUMMARY | 2025-06-14 08:59 | XMS_ITS | Encounter Summary ---
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 [address] [place] [address] Consulting Physician Cardiology 01/04/20 Carlos Hernandez MD [address] [place] [address] Consulting Physician Rheumatology 01/27/24 documented as of this encounter
--- OUTSIDE RECORDS SUMMARY | 2025-06-14 08:59 | XMS_ITS | Encounter Summary ---
Author Organization [facility] Address [address] [place] [address] Phone Care Team Providers Care Fleecer Name Role Phone Eric Pretty MD Primary Care Provider [phone] Kale MONTANA MD, Master Hunt Unavailable [phone] Dominic Young MD Unavailable [phone] Carlos Hernandez MD Unavailable [phone] Reason for Referral * Diagnostic Imaging (Routine) - Closed Specialty Diagnoses / Procedures Referred By Contac t Referred To Contact Radiology Diagnoses Arthrodesis status Foraminal stenosis of lumbar region Lumbar radiculopathy Procedures CT Lumbar Spine WO Contrast Denise Walker CNS Phone: tel: fax: [facility] [address] Referral ID Status Reason Start Date Expiration Date Visits Re quested Visits Authorized [id number] Closed 03/08/2019 09/16/2020 1 1 * Consultation (Routine) - Closed Specialty Diagnoses / Procedures Referred By Contac t Referred To Contact Pain Management Diagnoses Arthrodesis status Foraminal stenosis of lumbar region Lumbar radiculopathy Denise Walker CNS Phone: tel: fax: Kia Kwan MD [address] [place] [address] Phone: tel: fax: Referral ID Status Reason Start Date Expiration Date V isits Requested Visits Authorized [id number] Closed Specialty Services Required 03/08/2019 09/16/2020 1 1 Scheduling Instructions Please schedule for left L4-L5 transforaminal injection.i Question Answer Please select the performing region: [facility] [[id number]] To provider: KIA KWAN [[id number]] # of visits: 1 Encounter Details Date Type Department Care Team (Late st Contact Info) Description 03/08/2019 Orders Only [facility] Orthopaedic Surgery [address] [facility] 1st Floor [address] [place] [id number] Denise Walker CNS [address] [facility] [address] [place] [address] Arthrodesis status (Primary Dx); Foraminal stenosis of [...] on file 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 Denise Walker [facility] IMG CT PROCEDURES Final Res ult documented in this encounter Visit Diagnoses Diagnosis Arthrodesis status- Primary Foraminal stenosis of lumbar region Lumbar radiculopathy Thoracic or lumbosacral neuritis or radiculitis, unspecified Arthrodesis status Foraminal stenosis of lumbar region Lumbar radiculopathy Thoracic or lumbosacral neuritis or radiculitis, unspecified documented in this encounter Care Teams Fleecer Relationship Specialty Start Date End Date Eric Pretty MD [address] [place] [address] PCP - General Internal Medicine 01/28/18 Master Henley III, MD [address] [place] [address] Consulting Physician Rheumatology 01/28/18 01/26/24 Dominic Young MD [address] [facility] [address] [place] [address] Consulting Physician Cardiology 01/04/20 Carlos Hernandez MD [address] [place] [address] Consulting Physician Rheumatology 01/27/24 documented as of this encounter
[2025-06-14 12:59] LABS: Hematocrit 41.4 % (42.0-52.0); Hemoglobin 13.2 g/dL (14.0-18.0); Immature Granulocyte Percent A 0.5 % (0-0.5); Lymphocytes Absolute Auto 0.65 K/mm3 (0.9-3.2); Mean Corpuscular HGB Conc 31.9 g/dl (32-36); Mean Corpuscular Hemoglobin 30.8 pg (26-34); Mean Corpuscular Volume 96.5 fl (80-100); Nucleated Red Blood Cells Absolute Auto 0.030 K/mm3 (0.0-0.012); Nucleated Red Blood Cells Perc 0.5 % (0.0-0.2); Platelet Count Result 277 k/mm3 (150-375); Red Blood Count 4.29 M/mm3 (4.6-6.20); White Blood Count 6.4 K/mm3 (4.5-10.0)
[2025-06-14 12:59] LABS: Add Urine Microscopic? NO; Appearance Urine Clear (Clear); Glucose Urine UA 3+ mg/dL (Negative); Leukocyte Esterase Ur Negative LEU/UL (Negative); Nitrate Urine Negative (Negative); Specific Grav Ur 1.022 (1.001-1.035)
[2025-06-14 13:05] LABS: Alanine Aminotransferase 24 U/L (6-50); Albumin Level 4.0 g/dL (3.5-5.1); Alkaline Phosphatase 99 U/L (38-126); Anion Gap 10 mmol/L (4-12); Aspartate Amino Transferase 77 U/L (17-59); Bilirubin,Total 1.0 mg/dL (0.2-1.3); Blood Urea Nitrogen 15 mg/dL (9-20); Calcium 8.8 mg/dL (8.4-10.2); Carbon Dioxide 27 mmol/L (22-30); Chloride 100 mmol/L (98-107); Cholesterol 136 mg/dL (0-200); Estimated Glomerular Filt Rate > 60; Glucose 199 mg/dL (65-110); HDL Direct 46 mg/dL; Potassium 4.2 mmol/L (3.4-5.0); Sodium 137 mmol/L (137-145); Total Protein 6.8 g/dL (6.3-8.2); Triglycerides 227 mg/dL (<150)
[2025-06-14 13:25] LABS: MALB Creatinine Ratio 9.3 mg/g (0-30)
[2025-06-14 21:10] LABS: Hemoglobin A1C 8.2 % (<5.7)
== END 2025-06-14 08:51 | disposition home or self-care (01) ==
PROVIDERS: PCP Internal Medicine; Visit Provider Internal Medicine
DX: E11.319 Type 2 diabetes mellitus with unspecified diabetic retinopathy without macular edema (principal); I10 Essential (primary) hypertension; E78.2 Mixed hyperlipidemia; E55.9 Vitamin D deficiency, unspecified; R35.0 Frequency of micturition; Z79.4 Long term (current) use of insulin
CPT/HCPCS: 36415; 80053; 80061; 81003; 82043; 82306; 83036; 85025

== ENCOUNTER 2025-06-20 09:55 | Emergency (ER) | payer MEDICARE, SELFPAY ==
--- NOTE | ~2025-06-20 | CT_ITS ---
EXAMINATION: CT soft tiss nk chst ab pel wo DATE: 06/20/2025 11:52 INDICATION: Foreign body sensation and difficulty breathing. TECHNIQUE: Computed tomography (CT) of the neck, chest, abdomen, and pelvis was performed without int ravenous contrast. Automated exposure control and iterative reconstruction technique were employed. T he dose-length product was 2315.68 mGy-cm. COMPARISON: None FINDINGS: NECK CT: Changes of bilateral intraocular lens replacement. Orbits are otherwise normal. Paranasal sinuses, ma stoid air cells and middle ear cavities are clear. Submandibular and parotid glands are normal and sy mmetric. Thyroid gland is unremarkable. There are scattered normal-sized lymph nodes in the neck, no lymphadenopathy. No masses identified. Airway is unremarkable. Normal epiglottis and retropharyngeal soft tissues. No evident foreign bodies. Mild cervical spondylosis. CHEST CT: Lungs are clear with no suspicious pulmonary nodules, pulmonary edema, pleural effusion or pneumothor ax. Heart size is normal. Atherosclerotic coronary artery calcifications. Three lead pacemaker/AICD s een with lead tips at the right atrium millimeter the apex of the right ventricle and in a coronary v ein overlying the lateral left ventricle having traversed the coronary sinus. No pericardial effusion . Mildly aneurysmal ascending thoracic aorta measuring up to 4.4 cm. No pathologically enlarged thora cic lymphadenopathy. Esophagus is normal with no evident foreign bodies. No endotracheal or endobronc hial filling defects. Mild thoracic spondylosis. ABDOMEN/PELVIS CT: Cholecystectomy clips at gallbladder fossa. Liver, spleen, pancreas and bilateral adrenal glands are normal. Tiny punctate densities consistent with 1 mm nonobstructing stones at both kidneys. Again see n are few bilateral renal cysts the largest in the right kidney measuring 2.2 cm. There is a second 2 .2 cm exophytic lesion at the left kidney with greater than simple fluid attenuation of 32 HU with no evident enhancement with similar attenuation of 35 HU on the prior postcontrast study consistent wit h a complex proteinaceous/hemorrhagic cyst. There are few sigmoid diverticula without adjacent inflam matory stranding to suggest diverticulitis. Small bowel and appendix are normal. No evident foreign b odies within the stomach or bowels. Bladder is normal. Prostate is small with a few small metallic de nsities which could represent surgical clips, fiducial markers are brachytherapy seeds. No free intra peritoneal gas or fluid. No pathologically enlarged abdominal or pelvic lymphadenopathy. L3 and L4 la minectomies with combined instrumented anterior and posterior spinal fusion at L3-L5. IMPRESSION: 1. No acute cardiopulmonary disease or evident ingested foreign bodies in the airway or alimentary ca nal. 2. Mildly aneurysmal ascending thoracic aorta measuring up to 4.4 cm. 3. No acute intra-abdominal/pelvic process. Reviewed, dictated and finalized at location A. IMPRESSION: 1. No acute cardiopulmonary disease or evident ingested foreign bodies in the a irway or alimentary canal. 2. Mildly aneurysmal ascending thoracic aorta measuring up to 4.4 cm. 3. No acute intra-abdominal/pelvic process.
[2025-06-20 09:51] VITALS: BP 147/73; PULSE 80; RESP 20; TEMP 36.6; O2SAT 100
[2025-06-20] MEDS: ONDANSETRON INJ 4 MG/2 ML VIAL (10:09)
[2025-06-20 10:15] VITALS: BP 150/86; PULSE 82; RESP 22; O2SAT 100
[2025-06-20 10:36] LABS: Hematocrit 44.5 % (42.0-52.0); Hemoglobin 14.8 g/dL (14.0-18.0); Immature Granulocyte Percent A 0.6 % (0-0.5); Lymphocytes Absolute Auto 0.79 K/mm3 (0.9-3.2); Mean Corpuscular HGB Conc 33.3 g/dl (32-36); Mean Corpuscular Hemoglobin 30.8 pg (26-34); Mean Corpuscular Volume 92.7 fl (80-100); Nucleated Red Blood Cells Absolute Auto 0.000 K/mm3 (0.0-0.012); Nucleated Red Blood Cells Perc 0.0 % (0.0-0.2); Platelet Count Result 269 k/mm3 (150-375); Red Blood Count 4.80 M/mm3 (4.6-6.20); White Blood Count 8.6 K/mm3 (4.5-10.0)
[2025-06-20] MEDS: MORPHINE SULFATE (*CRX) 4 MG/ML INJ IV PUSH (10:39)
[2025-06-20] MEDS: SODIUM CHLORIDE 0.9% IV 1,000 ML 150 ML IV CONT (10:40)
--- OUTSIDE RECORDS SUMMARY | 2025-06-20 10:41 | XMS_ITS | Encounter Summary ---
Author Organization [facility] Healthcare Address [address] [place] [address] Care Team Providers Care Mender Hand Name Role Phone Eric Pretty MD Primary Care Provider [phone] Kale MONTANA MD, Master Hunt Unavailable Dominic Young MD Unavailable [phone] Carlos Hernandez MD Unavailable [phone] Encounter Details Date Type Department Care Team (Late st Contact Info) Description 04/14/2019 Telephone [facility] Center at [facility] [address] [facility] [address] [place] [address] Kia Kwan MD [address] [facility] [address] [place] [address] Social History Tobacco Use Types [...] on file 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 documented as of this encounter Visit Diagnoses Not on filedocumented in this encounter Care Teams Mender Hand Relationship Specialty Start Date End Date Eric Pretty MD [address] [facility] [address] [place] [address] PCP - General Internal Medicine 01/28/18 Master Henley III, MD [address] [place] [address] Consulting Physician Rheumatology 01/28/18 01/26/24 Dominic Young MD [address] [place] [address] Consulting Physician Cardiology 01/04/20 Carlos Hernandez MD [address] [place] [address] Consulting Physician Rheumatology 01/27/24 documented as of this encounter
--- OUTSIDE RECORDS SUMMARY | 2025-06-20 10:41 | XMS_ITS | Encounter Summary ---
Author Organization [facility] Address [address] [place] [address] Phone Care Team Providers Care Dross Puller Name Role Phone Eric Pretty MD Primary Care Provider [phone] Kale MONTANA MD, Master Hunt Unavailable [phone] Dominic Young MD Unavailable [phone] Carlos Hernandez MD Unavailable [phone] Reason for Referral * Diagnostic Imaging (Routine) - Closed Specialty Diagnoses / Procedures Referred By Contac t Referred To Contact Radiology Diagnoses Arthrodesis status Foraminal stenosis of lumbar region Lumbar radiculopathy Procedures CT Lumbar Spine WO Contrast Denise Walker CNS Phone: tel: fax: [facility] [address] Referral ID Status Reason Start Date Expiration Date Visits Re quested Visits Authorized [id number] Closed 03/08/2019 09/16/2020 1 1 * Consultation (Routine) - Closed Specialty Diagnoses / Procedures Referred By Contac t Referred To Contact Pain Management Diagnoses Arthrodesis status Foraminal stenosis of lumbar region Lumbar radiculopathy Denise Walker CNS Phone: tel: fax: Kia Kwan MD [address] [place] [address] Phone: tel: fax: Referral ID Status Reason Start Date Expiration Date V isits Requested Visits Authorized [id number] Closed Specialty Services Required 03/08/2019 09/16/2020 1 1 Scheduling Instructions Please schedule for left L4-L5 transforaminal injection.i Question Answer Please select the performing region: [facility] [[id number]] To provider: KIA KWAN [[id number]] # of visits: 1 Encounter Details Date Type Department Care Team (Late st Contact Info) Description 03/08/2019 Orders Only [facility] Orthopaedic Surgery [address] [facility] 1st Floor [address] [place] [phone] Denise Walker CNS [address] [facility] [address] [place] [address] Arthrodesis status (Primary Dx); Foraminal stenosis of [...] on file 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 Denise Walker [facility] IMG CT PROCEDURES Final Res ult documented in this encounter Visit Diagnoses Diagnosis Arthrodesis status- Primary Foraminal stenosis of lumbar region Lumbar radiculopathy Thoracic or lumbosacral neuritis or radiculitis, unspecified Arthrodesis status Foraminal stenosis of lumbar region Lumbar radiculopathy Thoracic or lumbosacral neuritis or radiculitis, unspecified documented in this encounter Care Teams Dross Puller Relationship Specialty Start Date End Date Eric Pretty MD [address] [place] [address] PCP - General Internal Medicine 01/28/18 Master Henley III, MD [address] [place] [address] Consulting Physician Rheumatology 01/28/18 01/26/24 Dominic Young MD [address] [facility] [address] [place] [address] Consulting Physician Cardiology 01/04/20 Carlos Hernandez MD [address] [place] [address] Consulting Physician Rheumatology 01/27/24 documented as of this encounter
--- OUTSIDE RECORDS SUMMARY | 2025-06-20 10:41 | XMS_ITS | Encounter Summary ---
Author Organization [facility] Address [address] [facility] [address] [place] [address] Care Team Providers Care Outside Sales Consultant Name Role Phone Jarvis Harding Primary Care Provider Jarvis Harding Primary Care Provider Jarvis Harding Primary Care Provider Jarvis Harding Primary Care Provider Jarvis Harding Primary Care Provider Jarvis Harding Primary Care Provider Kindra Fernandez MD Primary Care Provider Eric Pretty MD Primary Care Provider [phone] Kale MONTANA MD, John J. 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 Gender Identity Not on file Sexual [...] on filedocumented in this encounter Care Teams Outside Sales Consultant Relationship Specialty Start Date End Date Jarvis Harding [address] [place] [address] PCP - General 02/14/17 08/27/17 Jarvis Harding [address] [place] [address] PCP - General 07/13/14 02/13/17 Jarvis Harding [address] [place] [address] PCP - General 03/03/12 07/12/14 Jarvis Harding [address] [place] [address] PCP - General 02/18/12 03/02/12 Jarvis Harding [address] [place] [address] PCP - General 02/11/12 02/17/12 Jarvis Harding [address] [place] [address] PCP - General 07/24/11 02/10/12 Kindra Fernandez MD [address] [place] [address] PCP - General Family Practice 08/28/17 01/27/18 Eric Pretty MD [address] [place] [address] PCP - General Internal Medicine 01/28/18 Master Henley III, MD [address] [facility] [address] [place] [address] Consulting Physician Rheumatology 01/28/18 01/26/24 Dominic Young MD [address] [facility] [address] [place] [address] Consulting Physician Cardiology 01/04/20 Carlos Hernandez MD [address] [facility] [place] [address] Consulting Physician Rheumatology 01/27/24 documented as of this encounter
--- OUTSIDE RECORDS SUMMARY | 2025-06-20 10:41 | XMS_ITS | Clinical Summary ---
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
--- OUTSIDE RECORDS SUMMARY | 2025-06-20 10:41 | XMS_ITS | Encounter Summary ---
Author Organization [facility] Address [address] [place] [address] Care Team Providers Care Shearing Machine Tender Name Role Phone Eric Pretty MD Primary Care Provider + Encounter Details Date Type Department Care Team (Late st Contact Info) Description 06/02/2025 Results Follow-Up 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 AND [facility]ASC[facility] EP AT [address] [place] [address] 07/26/2025 2:00 PM CDT Office Visit [facility] HEART AND VASCULAR EP AT [address] [place] [address] Cuauhtemoc Saez DNP [address] [place] [address] [address] [place] [address] 08/08/2025 12:00 PM CDT Office Visit [facility] Heart [facility] Vascular At [address] [place] [address] Dominic Young MD [address] [place] [address] [address] [place] [address] 03/22/2026 12:00 PM CDT Confidential [facility] Neuropsychology Services [address] [place] [phone] Felisa Durham, PhD Dept. of Neuropsychology [address] [place] [phone] documented as of this encounter Visit Diagnoses Not on filedocumented in this encounter Care Teams Shearing Machine Tender Relationship Specialty Start Date End Date Eric Pretty MD [address] [place] [address] PCP - General Internal Medicine 11/24/19 documented as of this encounter
--- OUTSIDE RECORDS SUMMARY | 2025-06-20 10:41 | XMS_ITS | Clinical Summary ---
Author Organization [facility] [address] Address [address] [place] [address] Care Team Providers Care Drop Hammer Set Up Operator Name Role Phone Eric Pretty MD Primary Care Provider [phone] Dominic Young MD Unavailable [phone] Carlos Hernandez MD Unavailable [phone] Allergies Active Allergy Reactions Criticality Noted [...] occurs. Assessment & Plan (12/24/2024 12:49 PM WEATHERIZATION TECHNICIAN): BMD 06/09/24: LFN 0.761, tscore -1.2 Total [...] occurs. Assessment & Plan (09/23/2024 2:49 PM WEATHERIZATION TECHNICIAN): BMD 06/09/24: LFN 0.761, tscore -1.2 Total [...] candidate Assessment & Plan (09/23/2024 1:14 PM WEATHERIZATION TECHNICIAN): Xrays 2016: Moderate osteoarthritis of the acromioclavicular [...] walks. Assessment & Plan (12/12/2022 3:07 PM WEATHERIZATION TECHNICIAN): R shoulder hurting for the past 2-3 days. May have been triggered by carrying in grocery bags. Hx rotator cuff tears per pt's report. Recommend heat/ice, rest. Will order PT. Consider seeing ortho if not improving Atherosclerotic cardiovascular disease Assessment & Plan (11/12/2022 3:08 PM WEATHERIZATION TECHNICIAN): S/p multiple MIs/cardiac arrest, sick sinus, CHF. Has pacemaker. [employer] Dr. Young. On eliquis and clopidogrel History of DVT of lower extremity 11/12/2022 History of prostate cancer 11/12/2022 Overview (11/12/2022): Treated with radiation in 2017 Chronic pain syndrome 12/16/2021 Type 2 diabetes mellitus wit h diabetic neuropathy, unspecified 11/17/2020 Chronic pain of right knee 06/08/2019 Assessment & Plan (09/23/2024 1:05 PM WEATHERIZATION TECHNICIAN): Mild OA on xray from 06/04. Had [...] benefit. Assessment & Plan (01/04/2020 12:03 PM WEATHERIZATION TECHNICIAN): Mild OA on xray from 06/04. Had cortisone shots years ago but they spiked his sugars. Had zilretta on 10/29/19 as this formulation causes less systemic steroid effect than regular triamcinolone injection. However, he reported no benefit. Assessment & Plan (10/26/2019 2:15 PM WEATHERIZATION TECHNICIAN): Mild OA on xray from 06/04. Had [...] mgmt: [facility] ([facility]) in [facility] Assessment & Plan (04/01/2025 4:13 PM CDT): 3 prior back surgeries and still having a lot of pain. Decided against pursuing any more surgery. Has been to pain mgmt in [facility]. Continues to take gabapentin for neuropathic pain. Assessment & Plan (12/24/2024 2:28 PM WEATHERIZATION TECHNICIAN): 3 prior back surgeries and still having a lot of pain. Decided against pursuing any more surgery. Has been to pain mgmt in [facility]. Continues to take gabapentin for neuropathic pain. Assessment & Plan (09/23/2024 1:05 PM WEATHERIZATION TECHNICIAN): 3 prior back surgeries and still having a lot of pain. Decided against pursuing any more surgery. Has been to pain mgmt in [facility]. Continues to take gabapentin for neuropathic pain. Assessment & Plan (06/22/2024 3:21 PM CDT): 3 prior back surgeries and still having a lot of pain. Decided against pursuing any more surgery. Has been to pain mgmt in [facility]. Continues to take gabapentin for neuropathic pain. Assessment & Plan (03/16/2024 4:37 PM CDT): 3 prior back surgeries and still having a lot of pain. Decided against pursuing any more surgery. Has been to pain mgmt in [facility]. Continues to take gabapentin for [...] surgery. Has been to pain mgmt in [facility]. Continues to take gabapentin for neuropathic pain Assessment & Plan (07/28/2023 3:39 PM CDT): 3 prior back surgeries and still having a lot of pain. Decided against pursuing any more surgery. Has been to pain mgmt in [facility]. Continues to take gabapentin for neuropathic pain Assessment & Plan (05/27/2023 4:30 PM CDT): 3 prior back surgeries and still having a lot of pain. Thinking about going back to see nsg for opinion if there is anything else he can do. Has been to pain mgmt in [facility]. Continues to take gabapentin for neuropathic pain Assessment & Plan (11/12/2022 3:05 PM WEATHERIZATION TECHNICIAN): 3 prior back surgeries and he does not want to have any additional surgery. Sees pain mgmt in [facility]. Discussed pain stimulator but he deferred for now. Continues to take gabapentin for neuropathic pain Assessment & Plan (01/04/2020 12:04 PM WEATHERIZATION TECHNICIAN): No surgery planned. Continue to f/u with pcp and pain mgmt. Encouraged to continue water exercise. Declines PT. Discuss weight loss treatments with pcp. He used to be on duloxetine for mood and chronic pain and can't remember why he stopped. He would be willing to restart this now. Begin 30mg daily. Assessment & Plan (10/26/2019 2:16 PM WEATHERIZATION TECHNICIAN): No surgery planned. Continue to f/u with [...] & Plan (08/21/2018 2:15 PM CDT): Saw dandy operator who put him back on midodrine. [...] Neg quantiferon 12/18 Neg hepatitis 12/18 utd [id number], [id number], yearly flu shot. Had shingrix Had RSV vaccine Had original COVID vaccine series but not additional boosters Assessment & Plan (12/24/2024 12:50 PM WEATHERIZATION TECHNICIAN): Neg quantiferon 12/18 Neg hepatitis 12/18 utd [id number], idydxrpmd95, yearly flu shot. Had shingrix Had RSV vaccine Had original COVID vaccine series but not additional boosters Assessment & Plan (09/23/2024 1:19 PM WEATHERIZATION TECHNICIAN): Neg quantiferon 12/18 Neg hepatitis 12/18 utd [id number], ibsizcqim80, yearly flu shot. Had shingrix Had RSV vaccine Had original COVID vaccine series but not additional boosters Assessment & Plan (06/22/2024 1:27 PM CDT): Neg quantiferon 12/18 Neg hepatitis 12/18 utd lclqkai15, gmtekittg71, yearly flu shot. Recommend shingrix, COVID booster Assessment & Plan (03/16/2024 2:20 PM CDT): Neg quantiferon 12/18 Neg hepatitis 12/18 utd wdyrqsp25, ocwpeqzmu22, yearly flu shot. Recommend shingrix, COVID booster Assessment & Plan (01/27/2024 1:06 PM CDT): Neg quantiferon 12/18 Neg hepatitis 12/18 utd , fsvrlqifk85, yearly flu shot. Recommend shingrix, COVID booster Assessment & Plan (10/28/2023 3:46 PM WEATHERIZATION TECHNICIAN): Neg quantiferon 12/18 Neg hepatitis 12/18 utd ildhauh51, xtsrbjuxt50, yearly flu shot. Recommend shingrix, COVID booster Assessment & Plan (07/28/2023 2:25 PM CDT): Neg quantiferon 12/18 Neg hepatitis 12/18 utd blkcrma33, , yearly flu shot. Recommend shingrix, COVID booster Assessment & Plan (05/27/2023 1:55 PM CDT): Neg quantiferon 12/18 Neg hepatitis 12/18 utd ivgjdhz21, esaoibmru30, flu shot. Recommend shingrix, COVID boosters if not done Assessment & Plan (04/17/2023 4:33 PM CDT): Neg quantiferon 12/18 Neg hepatitis 12/18 utd ukyuspb04, hmtpagncr91, flu shot. Recommend shingrix, COVID boosters if not done Assessment & Plan (12/12/2022 3:06 PM WEATHERIZATION TECHNICIAN): Neg quantiferon 12/18 Neg hepatitis 12/18 utd , [id number], flu shot. Recommend shingrix, COVID boosters if not done Will advise Evusheld if he goes back on Rituxan in the future Assessment & Plan (11/12/2022 3:05 PM WEATHERIZATION TECHNICIAN): Neg quantiferon 12/18 Neg hepatitis 12/18 utd xsycemt01, oleideuuj48, flu shot. Recommend shingrix, COVID boosters if not done Will advise Evusheld if he goes back on Rituxan in the future Assessment & Plan (01/04/2020 11:23 AM WEATHERIZATION TECHNICIAN): Neg quantiferon 12/18 Neg hepatitis 12/18 utd [id number], inezuzajg29, flu shot. Recommend shingrix Assessment & Plan (10/26/2019 11:19 AM WEATHERIZATION TECHNICIAN): Neg quantiferon 12/18 Neg hepatitis 12/18 utd bnsvtob29, , flu shot. Recommend shingrix Assessment & Plan (08/10/2019 11:37 AM CDT): Neg quantiferon 12/18 Neg hepatitis 18 Assessment & Plan (06/08/2019 12:09 PM CDT): Neg quantiferon 12/18 Neg hepatitis 12/18 Assessment & Plan (03/26/2019 8:13 AM CDT): Neg quantiferon 12/18 Neg hepatitis 1218 Assessment & Plan (12/24/2018 9:59 PM WEATHERIZATION TECHNICIAN): Neg quantiferon / Neg hepatitis 11/03 Syncope and collapse 08/28/2017 Orthostasis 08/28/2017 Coronary artery disease invo lving [place] coronary artery of [place] heart with angina pectoris 08/28/2017 Assessment & Plan (01/04/2020 12:04 PM WEATHERIZATION TECHNICIAN): Pt had abnormal stress test followed by cardiac cath, stenting. Symptoms currently improved. dandy operator Dr. Young. Requested lipid panel so [...] Overview (02/21/2017): Seasonal allergies Rheumatoid arthritis of [facility] sites with negative rheumatoid factor 05/06/2011 Overview [...] needed Assessment & Plan (12/24/2024 2:28 PM WEATHERIZATION TECHNICIAN): cdai = 33, high Was not seen [...] needed Assessment & Plan (09/23/2024 2:48 PM WEATHERIZATION TECHNICIAN): cdai = 17, moderate Was not seen [...] weeks Assessment & Plan (10/28/2023 3:45 PM WEATHERIZATION TECHNICIAN): cdai = 10, low, improving Was not [...] month Assessment & Plan (12/12/2022 3:05 PM WEATHERIZATION TECHNICIAN): cdai = 27, high Last seen in [...] month Assessment & Plan (11/12/2022 3:10 PM WEATHERIZATION TECHNICIAN): cdai = 32, high Last seen in [...] month Assessment & Plan (01/04/2020 11:21 AM WEATHERIZATION TECHNICIAN): cdai = 26, high Pt received first [...] months Assessment & Plan (10/26/2019 2:17 PM WEATHERIZATION TECHNICIAN): cdai = 30 Pt received first Rituxan [...] today. Assessment & Plan (12/24/2018 9:58 PM WEATHERIZATION TECHNICIAN): cdai = 13, low-moderate Pt received first [...] doing. Assessment & Plan (10/26/2018 9:41 AM WEATHERIZATION TECHNICIAN): High cdai. Patient has been having more [...] Department Care Team Description 06/13/2025 Orders Only [facility] Card[facility] [address] [place] [address] Farhad Valdes MD 04/08/2025 Telephone [facility] [address] [place] [phone] Natacha Henley 04/01/2025 1:15 PM CDT Office Visit [facility] [address] [place] [phone] Olga Bueno PA 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 factor (HCC) (Primary Dx); High risk medications (not anticoagulants) long-term use; Osteoarthritis of spine with radiculopathy, lumbar region; Age-related osteoporosis without current pathological fracture; Chronic systolic (congestive) heart failure (HCC) 04/01/2025 Telephone [facility] [address] [place] [phone] Olga Goodson Please schedule next Reclast. [...] Medical chronic back pa in Diabetes mellitus ([facility]) Diabetes mellitus; Comments: [facility] 01/24/2016 - Hypertension Hypertension Hyperlipidemia Hyperlipidemia; Comments: [facility] 01/24/2016 - Gastroesophageal reflux disease GERD Depression Depression Rheumatoid arthritis ([facility]) Rheum atoid arthritis; Comments: [facility] 01/24/2016 - Anxiety disorder Anxiety Diabetic neuropathy ([facility]) Diabet ic neuropathy; Comments: [facility] 01/24/2016 - Benign prostatic hyperplasia BPH - Benign prostatic hypertrophy; Comments: [facility] 01/24/2016 - History of spinal surgery H/O Sp inal surgery; Comments: [facility] 01/24/2016 - Cancer ([facility]) Obesity Family History Medical History Relation [...] on file Legal Sex Male 3:50 PM WEATHERIZATION TECHNICIAN Gender Identity Not on file Sexual [...] home safety. Medical Devices Implanted Type Area Rrts Device Identifier Shelf Expiration Date Model / Serial / Lot Stents Heart Description:cardiac stents Hardware Spine Lumbar Description:lumbar hardware Procedures Procedure Name Priority Date/Time Associated Diagnosis Comments CARDIOLOGY DOCUMENT SCAN Routine 06/11/2025 3:50 PM CDT COMPREHENSIVE METABOLIC PANEL Routine 12/24/2024 1:20 PM WEATHERIZATION TECHNICIAN 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 factor (HCC) High risk medications (not anticoagulants) long-term use LIPID PANEL Routine 01/04/2020 11:48 AM WEATHERIZATION TECHNICIAN HEPATITIS PANEL, ACUTE Routine 8 11:17 AM WEATHERIZATION TECHNICIAN HEMOGLOBIN A1C Routine 08/05/2014 3:33 PM CDT from Last 3 Months or Most Recently Relevant to Health Maintenance Results * Cardiology Document Scan (06/11/2025 3:50 PM CDT) Anatomical Region Laterality Modality Other Farhad Valdes MD CV CARDIAC SERVICES PROCEDURES F inal Result * (ABNORMAL) Comprehensive metabolic panel (12/24/2024 1:20 PM WEATHERIZATION TECHNICIAN) Glucose 96 65 - 99 mg/dL [facility] [...] [facility] Blood 12/24/2024 1:20 PM WEATHERIZATION TECHNICIAN 12/24/2024 1:21 PM WEATHERIZATION TECHNICIAN us [address] LAB BLOOD ORDERABLES Fin al Result [facility] [address] [place] [address] * (ABNORMAL) Lipid panel (01/04/2020 11:48 AM WEATHERIZATION TECHNICIAN) Cholesterol 155 <200 mg/dL [facility] [place] HDL 50 > OR = 40 mg/dL [facility] [place] Triglycerides 355(H) <150 [...] LDL-C. Girma YING et al. GINA. 2013;310(19): 9649-5130 (http://education.RigUp/faq/RSJ343) Chol/HDL ratio 3.1 <5.0 (calc) [facility] [place] Non-HDL, (LDL+VLDL) 105 <130 mg/dL (calc) [facility] [place] Comment: For patients with diabetes plus 1 major ASCVD risk factor, treating to a non-HDL-C goal of <100 mg/dL (LDL-C of <70 mg/dL) is considered a therapeutic option. 01/04/2020 11:4 8 AM WEATHERIZATION TECHNICIAN 01/04/2020 11:49 AM WEATHERIZATION TECHNICIAN Narrative Resulting Agency Comment Performing Organization Information: Site ID: [id number] Name: Mariann Pinedo Address: [address] [place] [phone] Director: Angie Vaca D.O., MPH us [address] LAB BLOOD ORDERABLES Fin al Result Performing Organization Address [facility] de Phone Number [facility] [place] AB Ma * Hepatitis panel, acute (11/03/2018 11:17 AM WEATHERIZATION TECHNICIAN) Hep A IgM NON-REACTI VE NON-REACTI VE [facility] [place] HepBsAg NON-REACTI VE NON-REACTI VE [facility] [place] Hep B core IgM NON-REACTI VE NON-REACTI VE [facility] [place] Hep C Ab NON-REACTI VE NON-REACTI VE [facility] [place] SIGNAL TO CUT-OFF 0.02 <1.00 [facility] [place] 11/03/2018 11:1 7 AM WEATHERIZATION TECHNICIAN 11/03/2018 11:18 AM WEATHERIZATION TECHNICIAN Narrative Resulting Agency Comment Performing Organization Information: Site ID: AB Name: Mariann Pinedo Address: [address] [place] [phone] Director: Angie Vaca D.O. MPH us Master Henley III, MD LAB MICROBIOLOGY - GENERAL ORDERABLES Final Result Performing Organization Address [facility] Co de Phone Number [facility]IANN [...] of diabetes for children. Test performed at [employer] [address] [place] [address] Director: ANGIE VACA DO,MPH 08/05/2014 3:[address] LAB BLOOD ORDERABLES Fin al Result [facility]ISTOR[facility] RESULTS from Last 3 Months or Most Recently Relevant to Health Maintenance Insurance MEDICARE MEDICARE [facility] MEDICARE SUPPLEMENT MEDICARE Care Teams Drop Hammer Set Up Operator Relationship Specialty Start Date End Date Eric Pretty MD [address] [facility] [address] [place], [place] [id number] PCP - General Internal Medicine 01/28/18 Dominic Young MD [address] [facility] [address] [place] [address] Consulting Physician Cardiology 01/04/20 Carlos Hernandez MD [address] [place] [address] Consulting Physician Rheumatology 01/27/24
--- OUTSIDE RECORDS SUMMARY | 2025-06-20 10:41 | XMS_ITS | Encounter Summary ---
Author Organization [facility] Healthcare Address [address] [place] [address] Care Team Providers Care Mobility Specialist Name Role Phone Eric Pretty MD Primary Care Provider [phone] Dominic Young MD Unavailable Carlos Hernandez MD Unavailable [phone] Encounter Details Date Type Department Care Team (Late st Contact Info) Description 07/22/2024 Orders Only [facility] Health Information Management [address] [place] [id number] Scanning, Provider Social History Tobacco Use [...] on file Legal Sex Male 3:50 PM DELI CLERK Gender Identity Not on file Sexual [...] on stairs Contact your local community or [facility] for information on exercise, fall prevention [...] on filedocumented in this encounter Care Teams Mobility Specialist Relationship Specialty Start Date End Date Eric Pretty MD [address] [facility] [address] [place] [address] PCP - General Internal Medicine 01/28/18 Dominic Young MD [address] [facility] [address] [place] [address] Consulting Physician Cardiology 01/04/20 Carlos Hernandez MD [address] [place] [address] Consulting Physician Rheumatology 01/27/24 documented as of this encounter
--- OUTSIDE RECORDS SUMMARY | 2025-06-20 10:41 | XMS_ITS | Clinical Summary ---
Author Organization [facility] Administrative Offices Address [address] [place] [address] Care Team Providers Care Ese Teacher Name Role Phone Eric Pretty MD Primary [...] 5 mg by mouth daily with breakfast. 04/10/20 23 Active folic acid (FOLVITE) 1 [...] daily 90 Tablet 2 08/23/20 24 Active ferrous sulfate 325 mg (65 mg iron) tablet Take 1 Tablet (325 mg) by mouth daily. 90 Tablet 03/20/20 Active HumuLIN-R U-500, Conc, Kwikpen 500 unit/mL (3 mL) pen INJECT 100 UNITS SUBCUTANEOUSLY BEFORE BREAKFAST, AND 35 UNITS BEFORE DINNER. 05/06/20 Active Additional Information Patient not taking.Reported on 06/09/2025 fesoterodine SR 24 hour (TOVIAZ) 8 mg tablet Take 8 mg by mouth. Active acetaminophen (TYLENOL) 325 mg tablet Take 2 Tablets (650 mg) by mouth every 6 hours as needed for Other (See Comment) (See admin instructions). 05/18/20 Active bisacodyL (DULCOLAX) 5 mg Delayed Release tablet Take 1 Tablet (5 mg) by mouth 1 time daily as needed for Constipation. 05/18/20 Active Additional Information Patient not taking.Reported on 06/09/2025 methotrexate (RHEUMATREX) 2.5 mg Tablet Take 4 x 2.5 mg tabs in the AM and PM once weekly on Friday05/18/20 Active sacubitriL-vals jaron (ENTRESTO) 24-26 mg Tablet Take 1 Tablet by mouth 2 times daily. 05/18/20 Active Additional Information Patient not taking.Reported on 06/09/2025 tiZANidine (ZANAFLEX) 2 mg Tablet Take 1 Tablet (2 mg) by mouth every 8 hours as needed for Spasm (back pain). 05/18/20 Active Additional Information Patient not taking.Reported on 06/09/2025 QUEtiapine (SEROquel) 25 mg tablet Take 1 Tablet (25 mg) by mouth daily after supper. 05/18/20 Active Additional Information Patient not taking.Reported on 06/09/2025 QUEtiapine (SEROquel) 25 mg tablet Take 1 Tablet (25 mg) by mouth 2 times daily as needed for Other (See Comment) (restlessness, agitation). 05/18/20 Active Additional Information Patient not taking.Reported on 06/09/2025 polyethylene glycol (MIRALAX) 17 gram Powder in Packet Take 1 Packet (17 Grams) by mouth 1 time daily as needed for Constipation. 05/18/20 Active Additional Information Patient not taking.Reported on 06/09/2025 mirtazapine (REMERON) 15 mg tablet Take 1 Tablet (15 mg) by mouth daily at bedtime. 05/18/20 Active Additional Information Patient not taking.Reported on 06/09/2025 insulin lispro (HumaLOG,ADMELO G) 100 unit/mL pen syringe Inject 5 Units by subcutaneous injection 3 times daily with meals. 05/18/20 Active insulin lispro (HumaLOG,ADMELO G) 100 unit/mL pen syringe Inject 0-18 Units [...] greater = give and/or add 18 units 05/18/20 Active insulin glargine (LANTUS) 100 unit/mL pen syringe Inject 18 Units by subcutaneous injection daily at bedtime. 05/18/20 Active Additional Information Patient not taking.Reported on 06/09/2025 HYDROcodone-jaylan taminophen (NORCO) 5-325 mg tabletIndicatio ns:Rheumatoid arthritis, involving unspecified site, unspecified whether rheumatoid factor present (CMS/HCC) Take 1 Tablet by mouth every 6 hours as needed for Pain. Max Daily Amount: 4 Tablets 20 Tablet 05/18/20 25 Active atorvastatin (LIPITOR) 40 mg tablet Take 1 Tablet (40 mg) by mouth daily. 90 Tablet 1 06/03/20 25 Active sertraline (ZOLOFT) 100 mg tablet 06/01/20 25 Active busPIRone (BUSPAR) 10 mg tablet 06/01/20 25 Active spironolactone (ALDACTONE) 25 mg tablet Take 0.5 Tablets (12.5 mg) by mouth daily. 45 Tablet 1 06/09/20 25 Active atorvastatin (LIPITOR) 40 mg tablet Take 40 mg by mouth daily. 025 Discontinu ed(Reorder ) torsemide (DEMADEX) 5 mg tablet Take 1 Tablet (5 mg) by mouth 1 time daily as needed for Other (See Comment) (fluid retention). 30 Tablet 1 04/05/20 25 025 Additional Information Patient taking differently: 10 mgOralDAILY, Reported on 05/07/2025 Active Problems Patient Care Coordination No te Formatting of this note migh t be different from the original. Dr. Dominic Young - Clinical Research Tech (HH) Problem Noted Date Diagnosed Date Diabetes mellitus [...] (12/12/2021): Added automatically from request for surgery [id number] Generalized muscle weakness 01/22/2021 05/30/2021 Severe obesity [...] Neg quantiferon 11/03 Neg hepatitis 11/03 utd [id number], [id number], flu shot. 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 Just started this today. Had episode of lightheadedness coming into the office today, better with sitting. Also describes vertigo sometimes and I suggested this might represent a different problem, discuss with pcp. Syncope and collapse 08/28/2017 025 Coronary artery disease invo lving [place] coronary artery of [place] heart with angina pectoris 08/28/2017 05/10/2025 Overview (05/30/2021): Last Assessment & Plan: Pt had abnormal stress test followed by cardiac cath, stenting. Symptoms currently improved. 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 Young. Requested lipid panel so will [...] Description 06/09/2025 12:30 PM CDT Office Visit [facility] [address] [place] [address] Dominic Young MD Chronic HFrEF (heart failure with reduced ejection fraction) (CMS/HCC) (Primary Dx); Mixed hyperlipidemia; Paroxysmal atrial fibrillation with RVR (CMS/HCC); Cardiac pacemaker in situ; Coronary artery disease involving [place] coronary artery of [place] heart without angina pectoris 06/08/2025 Telephone [facility] [address] [place] [address] Dominic Young MD needs appt 06/06/2025 Telephone [facility] AT [address] [place] [address] Cuauhtemoc Saez, MARI Medication Refill 06/03/2025 Refill [facility] AT [address] [place] [address] Cuauhtemoc Saez DNP 06/03/2025 Telephone [facility] AT [address] [place] [address] Cuauhtemoc Saez DNP Lab Results 06/03/2025 Orders Only [facility] AT [address] [place] [address] Casie Dietz RN 06/02/2025 Results Follow-Up [facility] AT [address] [place] [address] Casie Ditez RN BASIC METABOLIC PANEL 05/31/2025 2:15 PM CDT Office Visit [facility] AT [address] [place] [address] Cuauhtemoc Saze DNP Atrial flutter with rapid ventricular response (CMS/HCC) (Primary Dx); Longstanding persistent atrial fibrillation (CMS/HCC); Hx of atrioventricular node ablation; 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; 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; Mixed hyperlipidemia; Benign hypertension 05/25/2025 Telephone [facility] AT [address] [place] [address] Cuauhtemoc Saez DNP Medication Concerns 05/24/2025 Telephone [facility] AT [address] [place] [address] Alethea Huffman NP Edema 05/07/2025 2:55 PM CDT - 05/18/2025 3:07 PM CDT Hospital Encounter [facility] [address] [place] [address] Minal Villegas MD Hassan, MD Rosa Isela Cruz, MD Esau Noble Gayathri, MD Austin, Karen, MD Acute metabolic encephalopathy Discharge Disposition: Longterm Fac(SNF) with Medicare Certification in Anticipation of Skilled Care 05/07/2025 Travel 05/04/2025 3:08 AM CDT - 05/06/2025 3:40 PM CDT Hospital Encounter [facility] Neuroscience [address] [place] [address] Akosua Bourgeois MD Counts, Ivette Kelley MD Acute metabolic encephalopathy Discharge Disposition: Rehab Facility IP 05/02/2025 Telephone [facility] AT [address] [place] [address] Elver Bazzi NP Medication Question 04/18/2025 2:30 PM CDT Procedure visit [facility] AT [address] [place] [phone] NICM (nonischemic cardiomyopathy) (CMS/HCC) (Primary Dx); Encounter for implantable defibrillator reprogramming or check 04/18/2025 Telephone [facility] AT [address] [place] [address] Tani Patel MD Pacemaker issues 04/15/2025 9:00 AM CDT Office Visit [facility] AT [address] [place] [address] Akanksha Cueva NP NICM (nonischemic cardiomyopathy) (CMS/HCC) (Primary Dx); 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; Longstanding persistent atrial fibrillation (CMS/HCC); Mixed hyperlipidemia 04/15/2025 8:30 AM CDT Procedure visit [facility] AT [address] [place] [address] NICM (nonischemic cardiomyopathy) (CMS/HCC) (Primary Dx); 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; Longstanding persistent atrial fibrillation (CMS/HCC) 04/15/2025 Telephone [facility] AT [address] [place] [phone] Tani Patel MD Symptoms 04/15/2025 Telephone [facility] [address] [place] [address] Akanksha Cueva NP Fatigue; Low Blood Pressure 04/05/2025 1:00 PM CDT Office Visit [facility] [address] [place] [address] Erica Vizcarra NP Coronary artery disease involving [place] coronary artery of [place] heart without angina pectoris (Primary Dx); Benign hypertension; Paroxysmal atrial fibrillation with RVR (CMS/HCC) 03/31/2025 Results Follow-Up [facility] [address] [place] [phone] Yareli Kelsey RN BASIC METABOLIC PANEL, CBC WITH DIFFERENTIAL, BASIC METABOLIC PANEL 03/24/2025 10:30 AM CDT Office Visit [facility] [address] [place] [phone] Erica Vizcarra DEHYDROGENATION CONVERTER OPERATOR Chronic HFrEF (heart failure with reduced ejection fraction) (CMS/HCC) (Primary Dx); Coronary artery disease involving [place] coronary artery of [place] heart without angina pectoris; Mixed hyperlipidemia from Last 3 Months Immunizations Immunization Administration [...] on file Legal Sex Male 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 Gender Identity Not on file Sexual Orientation [...] 07/11/2025 4:15 PM CDT Telephone Check Up [facility] [address] [place] [phone] Dominic Young MD [address] [place] [address] [address] [place] [address] 07/20/2025 8:00 AM CDT Procedure visit [facility] AT [address] [place] [address] 07/26/2025 2:00 PM CDT Office Visit [facility] AT [address] [place] [phone] Cuauhtemoc Saez DNP [address] [facility] [address] [place] [address] 08/08/2025 12:00 PM CDT Office Visit [facility] [address] [place] [address] Dominic Young MD [address] [place] [address] [address] [place] [phone] 03/22/2026 12:00 PM CDT Confidential [facility] Neuro[facility]ology Services [address] [place] [address] Felisa Durham, PhD Dept. of Neuropsychology [address] [place] [address] Health Maintenance Due Date Last Done Comments [...] exists DIABETES HBA1C Q 6 MONTHS 09/08/20252024, 03/01/2025, 01/19/2025, Additional history exists PNEUMOCOCCAL VACCINE 50+ YEARS Completed 01/20/2017 , 08/15/2015 FIT/FOBT Q 1 year Discontinued 01/21/2021 COLORECTAL SCREENING Discontinued 12/26/2022, 12/26/2022, 03/18/2018 Colorectal Cancer Screening Discontinued FIT-DNA Q 3 years Discontinued Flex Sig/CT Colonography Q 5 years Discontinued Medical Devices Implanted Type Area Size Stamper Device Identifier Shelf Expiration Date Model / Serial / Lot Sealant Duraseal 5ml - [id number] Implanted:Qty: 1 on 01/02/2021 by Jarvis Martell MD at [facility] Biological Spine Lumbar [employer] LULA 02/14/2022 / / [id number] Eit T/Plif, H 13mm, 4' , 12/08 Implanted:Qty: 1 on 01/02/2021 by Jarvis Martell MD at [facility] Cage Spine Lumbar J&J- [employer]PUY SPINE INC 08/16/2024 [id number] / / [id number] Description:All Depuy spinal hardware was processed on requisition, 863164. Hemostatic Surgiflo 8ml W/Thrombin 2994 - [id number] Implanted:Qty: 1 on 01/02/2021 by Jarvis Martell MD at [facility] Hemostatic Spine Lumbar J&J- ETHICON INC 11/16/2021 2994 / / [id number] Hemostat Gaby Surg Mph Pwd 3gm Eu0732twm - [id number] Implanted:Qty: 1 on 12/14/2021 by Aki Mccray MD at [facility] Hemostatic Left: Chest CR BARD- DAVOL INC 05/14/2026 [id number] / / [id number] Hemostat Gaby Ah Powder 3gm [id number] - [id number] Implanted:Qty: 1 on 03/11/2025 by Chivo Moreland MD at [facility] Hemostatic Left: Chest BARD DAVOL [id number] 09/13/2029 [id number] / / [id number] Lead Pcmkr Tendril St Optm 2088tc-52 - [id number] Implanted:Qty: 1 on 12/14/2021 by Aki Mccray MD at [facility] Lead N/A: Heart TITUS [employer] 11/16/20242087TC-52 / [id number] / Lead Pcmkr Tendril St Optm 58 - [id number] Implanted:Qty: 1 on 12/14/2021 by Aki Mccray MD at [facility] Lead N/A: Heart T[employer]US [employer] 07/17/20242087TC/58 / [id number] / Lead Quartet Lt Quad 86cm 1458q-86 - [id number] Implanted:Qty: 1 on 03/11/2025 by Chivo Moreland MD at [facility] Lead N/A: Heart [facility]US [employer] [id number] 11/16/2027 1458Q/86 / [id number] / Rene Xpdm Crv W/Line 95mm 71 - Ssterilized 12/20/2020 Implanted:Qty: 1 on 01/02/2021 by Jarvis Martell MD at [facility] Rene Spine Lumbar J&J- DEPU[employer] SPINE INC 5 / STERILIZED 12/20/2020 / LOAD 110 Rene Xpdm Crv W/Line 85mm 71-085 - Ssterilized 12/20/2020 Implanted:Qty: 1 on 01/02/2021 by Jarvis Martell MD at [facility] Rene Spine Lumbar J&J- DEPU[employer]INE INC 5 / STERILIZED 12/20/2020 / LOAD 110 Log [id number] - Depuy Expedium 5.5 Spine Tray - 1 - Screw Exp Poly 6x40mm [id number] Implanted:Qty: 2 on 05/06/2011 at [facility] Screw J&J- DEPUY SPINE INC 0 / / Setscrew Inner 1796-12- - Ssterilized 12/20/2020 Implanted:Qty: 6 on 01/02/2021 by Jarvis Martell MD at [facility] Screw Spine Lumbar J&J- [employer]PU[employer] INC 0 / STERILIZED 12/20/2020 / LOAD 110 Screw Exp Poly 7x45mm 745 - Ssterilized 12/20/2020 Implanted:Qty: 4 on 01/02/2021 by Jarvis Martell MD at [facility] Screw Spine Lumbar J&J- DEPU[employer] INC 5 / STERILIZED 12/20/2020 / LOAD 110 Synergy- 020 Implanted:11/17 by Dominic Young MD (Quantity not on file) Stent 12/08/2020 / / [id number] Description:placed in the A Stent Synergy Xd 5.0x12mm Evrlms Elut [id number] - [id number] Implanted:Qty: 1 on 12/13/2021 at [facility] Stent N/A: Coronary [employer] LULA 12/18/2022 [id number] / / [id number] Putty Dbx Dbm [facility] 64979 - [id number] Implanted:Qty: 1 on 01/02/2021 by Jarvis Martell MD at [facility] Tissue Spine Lumbar MUSCULOSKELETAL TRANSPLANT FOU 09/04/2021 [id number] / [id number] / Healos Implanted:Qty: 1 on 05/06/2011 at [facility] 05/17/2011 [id number] / / [id number] Description:depuy spine Kimberly Cage Implanted:Qty: 1 on 05/06/2011 at [facility] Description:concord bullet c age, load#24 05-01-2011 Durata 65 Cm Implanted:Qty: 1 on 03/11/2025 by Chivo Moreland MD at [facility] N/A: Heart 01/14/2027 TITUS-712 0 / [id number] / Errol Hf Defibrillator Implanted:Qty: 1 on 03/11/2025 by Chivo Moreland MD at [facility] Left: Chest 04/16/2026 TITUS-CDH [id number] / [id number] / Description:per Titus Rep - NOT MRI safe. Patient has an abadoned lead from another device -[facility] 05/04/25 Explanted Type Area Size Stamper Device Identifier Shelf Expiration Date Model / Serial / Lot Pacemaker Assurity-2 Mri [id number] - [id number] Implanted:Qty : 1 on 12/14/2021 by Aki Mccray MD at [facility] Pacemaker Left: Chest T[employer]US [employer] 05/16/2023 [id number] / [id number] / [id number] Description:Assurity MRI pacemaker and Tendril MRI and Tendril STS pacing leads allow full body, 1.5T and 3T MRI scans.* When the Assurity MRI pacemaker is combined with Tendril STS or Tendril MRI pacing leads there is no wait time between implant and MRI scan readiness.-[facility] 12/20/21 EXPLANTED -see new implant tab -NOW HAS ABANDONED LEAD - NOT MRI SAFE -[facility] 05/04/25 Log [id number] - Depuy Expedium 5.5 Spine Tray - 1 - Rene Xpdm 5.5 Ti Prebnt 45mm [id number] Implanted:Qty : 1 on 05/06/2011 at [facility] Explanted:Qty : 1 on 01/02/2021 by Jarvis Martell MD at [facility] Rene J&J- DEPUY SPINE INC 1797-72-0 45 / / Log [id number] - Depuy Expedium 5.5 Spine Tray - 1 - Screw Set Inner 1797-02-000 Implanted:Qty : 2 on 05/06/2011 at [facility] Explanted:Qty : 2 on 01/02/2021 by Jarvis Martell MD at [facility] Screw J&J- MED PROD 1797-02-0 00-OLD / [...] POC GLUCOSE Routine 05/13/2025 1:55 PM CDT DIGITAL FORENSIC EXAMINER EVALUATE AND TREAT Pending Discharge 05/13/2025 9:34 [...] POC GLUCOSE Routine 05/04/2025 4:22 AM CDT UT PROGRAM EVAL, IMPLANT DEVICE CARDVERT/DEFIB,MULTI- LEAD W/IN GLOBAL Routine 04/18/2025 3:01 PM CDT NICM (nonischemic cardiomyopathy) (CMS/HCC) Encounter for implantable defibrillator reprogramming or check UT PRGRMG EVAL IMPLANTABLE IN PERSON MULTI LEAD [...] CDT TELEMETRY REPORT 03/22/2025 12:06 PM CDT HEMOGLOBIN A1C Stat 03/09/2025 4:18 PM CDT LIPID PANEL Routine 05/21/2022 2:46 PM CDT Benign hypertension Mixed hyperlipidemia POC OCCULT BLOOD 1 CARD Routine 01/21/2021 2:16 PM 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 GLUCOSE [...] Comment: FASTING:NO FASTING: NO Test Performed at: [facility] [address] [place] [address] Humberto Byres MD Blood 06/01/2025 10:0 7 AM CDT 06/01/2025 10:07 AM CDT Cuauhtemoc Saez DNP CHEMISTRY ORDERABLES Fi nal Result Performing Organization Address City/[facility]/ZIP Co de Phone Number [facility] [phone] [facility] [address] [place] [address] * (ABNORMAL) POC GLUCOSE (05/18/2025 12:29 PM CDT) Only the most recent of56 resultswithin the time period is included. [facility] GLUCOSE POC 237(H) 74 - 99 mg/dL 05/18/2025 12:29 PM CDT [facility] SPECIMEN SOURCE, GLUCOSE POC Whole Blood 05/18/2025 12:29 PM CDT [facility] Blood, whole 05/18/2025 12:2 9 PM CDT 05/18/2025 12:40 PM CDT Sarahi Allen MD POINT OF CARE TESTING Final Resu lt Performing Organization Address City/[facility] Co de Phone Number [facility] CLIA# [id number] [address] [facility] [place] [address] * TELEMETRY REPORT (05/17/2025 1:24 PM CDT) Only the most recent of4 resultswithin the time period is included. Provider Scanning ECG ORDERABLES Final Result * (ABNORMAL) CBC WITH DIFFERENTIAL (05/16/2025 7:01 AM CDT) Only the most recent of13 resultswithin the time period is included. [facility] WBC 5.2 4.0 - 9.8 K/uL 05/16/2025 7:36 AM CDT [facility] RBC 4.78 4.50 - 5.40 M/uL 05/16/2025 7:36 AM CDT [facility] HEMOGLOBIN 14.5 13.6 - 16.5 g/dL 05/16/2025 7:36 AM CDT [facility] HEMATOCRIT 44.7 40.0 - 48.0 % 05/16/2025 7:36 AM CDT [facility] MCV 93.5 82.0 - 99.0 fL 05/16/2025 7:36 AM CDT [facility] MCH 30.3 27.2 - 32.6 pg 05/16/2025 7:36 AM CDT [facility] MCHC 32.4 31.5 - 35.5 g/dL 05/16/2025 7:36 AM CDT [facility] RDW 16.4(H) 11.5 - 14.5 % 05/16/2025 7:36 AM CDT [facility] RDW-STDEV 56.5(H) 37.1 - 48.7 fL 05/16/2025 7:36 AM CDT [facility] PLATELETS 174 140 - 350 K/uL 05/16/2025 7:36 AM CDT [facility] MPV 10.7 9.3 - 12.4 fL 05/16/2025 7:36 AM CDT [facility] NEUTROPHILS 62 % 05/16/2025 7:36 AM CDT [facility] - [facility] LYMPHOCYTES 17 % 05/16/2025 7:36 AM CDT [facility] . [facility] MONOCYTES 16 % 05/16/2025 7:36 AM CDT [facility] . [facility] EOSINOPHILS 4 % 05/16/2025 7:36 AM CDT [facility] . [facility] BASOPHILS 1 % 05/16/2025 7:36 AM CDT [facility] . [facility] IMMATURE GRANULOCYTES 0 % 05/16/2025 7:36 AM CDT [facility] NEUTROPHIL ABSOLUTE 3.21 1.90 - 7.00 K/uL 05/16/2025 7:36 AM CDT [facility] LYMPHOCYTE ABSOLUTE 0.86 0.70 - 4.50 K/uL 05/16/2025 7:36 AM CDT [facility] - . [facility] MONOCYTE ABSOLUTE 0.82 0.10 - 1.30 K/uL 05/16/2025 7:36 AM CDT [facility] - [facility] EOSINOPHIL ABSOLUTE 0.22 0.00 - 0.70 K/uL 05/16/2025 7:36 AM CDT [facility] SERVICES - . [facility] BASOPHILS ABSOLUTE 0.05 0.00 - 0.20 K/uL 05/16/2025 7:36 AM CDT [facility] - . [facility] IMMATURE GRANULOCYTES ABSOLUTE 0.01 0.00 - 0.03 K/uL 05/16/2025 7:36 AM T [facility] Blood Venipuncture / Unknown 05/16/2025 7:01 AM CDT 05/16/2025 7:17 AM CDT Natacha Ellis MANDARIN CHINESE TEACHER HEMATOLOGY ORDERABLES Final Result [facility] CLIA# [id number] [address] [place] [address] * MAGNESIUM LEVEL (05/16/2025 7:01 AM CDT) Only the most recent of7 resultswithin the time period is included. MAGNESIUM 2.0 1.6 - 2.4 mg/dL 05/16/2025 8:01 AM CDT [facility] Blood Venipuncture / Unknown 05/16/2025 7:01 AM CDT 05/16/2025 7:17 AM CDT Adrienne Malave DEHYDROGENATION CONVERTER OPERATOR CHEMISTRY ORDERABLES Maryanne l Result [facility] CLIA# [id number] [address] [place] [address] * SYPHILIS SEROLOGY W/REFLEX (05/12/2025 8:33 AM CDT) T PALLIDUM ANTIBODIES NEGATIVE NEGATIVE 05/14/2025 12:03 PM CDT [facility] Comment: No antibodies to T. [...] 8:59 AM CDT Narrative [facility] - 05/14/2025 12:03 PM CDT Performing Organization Information: Site ID: [id number] Name: [facility] Address: [address] [place] [id number] Director: Dominic Wilcox Adrienne Malave DEHYDROGENATION CONVERTER OPERATOR CHEMISTRY ORDERABLES Maryanne l Result [facility] [phone] * ECHOCARDIOGRAM W/ CONTRAST AGENT (05/12/2025 7:56 AM CDT) EJECTION FRACTION 35 INTERFACE SYSTEM 05/12/2025 6:52 AM CDT Narrative INTERFACE SYSTEM - 05/12/2025 8:25 AM CDT [address] [address] [email or web address] Transthoracic Echocardiogram Patient: Kameron Man Study ID: ECHOCARDIOGRAM W Gender: M : 1945 Age: 79 Race: CHANDA Height 180.3cm Study Date: 05/12/2025 Weight: 119.8kg Access. #: [id number] BP: *Referring Physician:Adrienne Recinos *Ordering Physician:Adrienne Recinos certified endoscopy technician: Nurse: Indications: Cardiomyopathy. STUDY CONCLUSIONS: SUMMARY: - [...] cm --------- Area 4.2 cm^2 --------- Peak p[place]da, S 0.6 m/sec --------- VTI, S 9.0 [...] AM. Prepared and Electronically Authenticated Christina Ott [id number] Procedure Note Christina Ott MD - 05/12/[address] [address] [email or web address] Transthoracic Echocardiogram Patient: Kameron Man Study ID: ECHOCARDIOGRAM W Gender: M : 1945 Age: 79 Race: CAU Height 180.3cm Study Date: 05/12/2025 Weight: 119.8kg Access. #: [id number] BP: *Referring Physician:* Adrienne Malave *Ordering Physician:* Kuppler, Adrienne Laura certified endoscopy technician: Nurse: Indications: Cardiomyopathy. STUDY CONCLUSIONS: SUMMARY: - [...] AM. Prepared and Electronically Authenticated Christina Ott [id number] Adrienne Malave NP US ORDERABLES Final Res ult INTERFACE SYSTEM Refer to clinic/hospital department * BLOOD CULTURE (05/11/2025 12:02 PM CDT) Only the most recent of2 resultswithin the time period is included. BLOOD CULTURE No growth 05/16/2025 2:40 PM CDT [facility] Blood (Peripheral) Venipuncture / Unknown 05/11/2025 12:02 PM CDT 05/11/2025 12:25 PM CDT Narrative [facility] - 05/16/2025 2:40 PM CDT Specimen processed with suboptimal blood volume collected. Adrienne Malave NP MICROBIOLOGY - GENERAL OR DERABLES Final Result [facility] CLIA# [id number] [address] [place] [address] * HIV DETECTION W/REFLX CONFIRMATION (05/11/2025 12:00 PM CDT) HIV-1 AND 2 ABS AND HIV-1 AG Non-reacti ve Non-reacti ve 05/11/2025 1:29 PM CDT [facility] [employer] [facility] Blood Venipuncture / Unknown 05/11/2025 12:00 PM CDT 05/11/2025 12:24 PM CDT us Adrienne Sanchez Ananda DEHYDROGENATION CONVERTER OPERATOR CHEMISTRY ORDERABLES Maryanne l Result [facility] CLIA# [id number] [facility] [place] [id number] * EKG 12-LEAD (05/10/2025 4:56 PM CDT) Only the most recent of2 resultswithin the time period is included. 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1945 Requested By: MINAL Corcoran Order Number: [id number] Reading : David Tolbert Measurements Intervals [place] Rate: 80 P: 0 UT: 0 QRS: 160 QRSD: 174 T: 19 QT: 477 QTc: 551 Interpretive Statements Afib/flutter and ventricular-paced rhythm Electronically Signed On 05-11-2025 9:10:08 CDT by David Tolbert Procedure Note David Tolbert MD - 05/11/[address] [address] Test Date: 2025-05-10 Pat Name: [facility] Department: 41 Room: [facility] 1 Gender: Male 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1945 Requested By: MINAL Corcoran Order Number: [id number] Reading : David Tolbert Measurements Intervals [place] Rate: 80 P: 0 UT: 0 QRS: 160 QRSD: 174 T: 19 QT: 477 QTc: 551 Interpretive Statements Afib/flutter and ventricular-paced rhythm Electronically Signed On 05-11-2025 9:10:08 CDT by David Tolbert us Adrienne Malave DEHYDROGENATION CONVERTER OPERATOR ECG ORDERABLES Final Res ult INTERFACE SYSTEM Refer to clinic/hospital department * CT CHEST WO CONTRAST (05/10/2025 1:45 PM CDT) Anatomical Region Laterality Modality Chest Computed Tomogra phy 05/10/2025 1:39 PM CDT Impressions 05/10/2025 3:12 PM CDT IMPRESSION: 1. Cardiomegaly. 2. Right-sided thyroid nodule, ultrasound could better evaluate. 3. Coronary artery calcification. DICTATION LOCATION: Location [address] [place], [place] [address]marly Maurer [facility] 05/10/2025 3:[address] CHEST WO [...] evaluate. 3. Coronary artery calcification. DICTATION LOCATION: [address] us Adrienne Malave NP CT ORDERABLES Final Res ult * CT HEAD CERVICAL SPINE WO CONTRAST (05/10/2025 1:44 PM CDT) Anatomical Region Laterality Modality Head Computed Tomogra phy 05/10/2025 1:36 PM CDT Impressions 05/10/2025 2:01 PM CDT IMPRESSION: 1. No acute abnormality of the head or cervical spine. DICTATION LOCATION: [address] 05/10/2025 2:[address] HEAD WITHOUT [...] cervical spine. DICTATION LOCATION: Location 1 - [facility] Adrienne Malave DEHYDROGENATION CONVERTER OPERATOR CT ORDERABLES Final Res ult * C-REACTIVE PROTEIN (05/10/2025 7:08 AM CDT) Only the most recent of2 resultswithin the time period is included. CRP <3.0 <5.0 mg/L 05/10/2025 8:29 AM CDT [facility] Blood Venipuncture / Unknown 05/10/2025 7:08 AM CDT 05/10/2025 7:38 AM CDT Adrienne Malave DEHYDROGENATION CONVERTER OPERATOR CHEMISTRY ORDERABLES Maryanne l Result [facility]# [id number] [address] [facility] [place] [address] * (ABNORMAL) BRAIN NATRIURETIC PEPTIDE, BNP OR PROBNP (05/10/2025 7:08 AM CDT) Only the most recent of2 resultswithin the time period is included. PROBNP, N TERMINAL 2,277(H) <449 pg/mL 05/10/2025 11:20 AM CDT [facility] Comment: INTERPRETIVE COMMENT [...] AM CDT 05/10/2025 7:38 AM CDT Adrienne Keenepler DEHYDROGENATION CONVERTER OPERATOR CHEMISTRY ORDERABLES Maryanne ramachandran Result [facility] LABORATORY SERVICES [facility]# [id number] [address] [place] [address] * CT ABDOMEN PELVIS W CONTRAST (05/09/2025 3:27 PM CDT) Anatomical Region Laterality Modality Abdomen Computed Tomogra phy 05/09/2025 3:23 PM CDT Impressions 05/09/2025 5:05 PM CDT IMPRESSION: Lumbar spondylosis. Postop lumbar fusion. Renal cysts. Status post prior cholecystectomy. Pacemaker. Patient was scanned with iterative reconstruction to minimize radiation dose. DICTATION LOCATION: Location 1 - [facility] Narrative 05/09/2025 5:[address] SCAN [...] minimize radiation dose. DICTATION LOCATION: Location [address] [place] [address] us Ivette Natarajan MD CT ORDERABLES Final [...] HR, 5TH GEN (05/08/2025 2:54 PM CDT) TROPONIN T, 6 HR 5TH GEN 24(H) <=15 ng/L 05/08/2025 4:21 PM CDT [facility] LABORATORY [facility] DELTA 6HR TROPONIN T 0 See Interp. 05/08/2025 4:21 PM CDT [facility] LABORATORY [facility] Blood Venipuncture / Unknown 05/08/2025 2:54 PM CDT 05/08/2025 3:41 PM CDT Narrative [facility] LABORATORY [facility] - 05/08/2025 4:21 PM CDT Troponin elevated. Delta indeterminate. Delay in collection of timed specimen beyond recommended collection interval. Results must be interpreted in clinical context. Natacha Ellis APRN CHEMISTRY ORDERABLES Final Result [facility]# [id number] [address] [facility] [address] [place] [address] * (ABNORMAL) TROPONIN 2 HR, 5TH GEN (05/08/2025 10:59 AM CDT) TROPONIN T, 2 HR 5TH GEN 25(H) <=15 ng/L 05/08/2025 12:14 PM CDT [facility] LABORATORY [facility] DELTA 2HR TROPONIN T 1 See Interp. 05/08/2025 12:14 PM CDT [facility] LABORATORY [facility] Blood Venipuncture / Unknown 05/08/2025 10:59 AM CDT 05/08/2025 11:40 AM CDT [facility] LABORATORY [facility] - 05/08/2025 12:14 PM CDT Troponin elevated. Delta not changing. Delay in collection of timed specimen beyond recommended collection interval. Results must be interpreted in clinical context. Natacha Ellis APRN CHEMISTRY ORDERABLES Final Result Performing Organization Address [facility]/ZIP Co de Phone Number [facility] CLIA# [id number] [address] [place] [address] * (ABNORMAL) TROPONIN BASELINE, 5TH GEN (05/08/2025 8:55 AM CDT) TROPONIN T, BASELINE 5TH GEN 24(H) <=15 ng/L 05/08/2025 10:21 AM CDT [facility] [employer] [facility] Blood Venipuncture / Unknown 05/08/2025 8:55 AM CDT 05/08/2025 9:29 AM CDT [facility] LABORATORY [facility] - 05/08/2025 10:21 AM CDT Troponin elevated. Natacha Ellis APRN CHEMISTRY ORDERABLES Final Result Performing Organization Address City/[facility]/ZIP Co de Phone Number [facility] [employer] [facility] CLIA# [id number] [address] [place] [address] * (ABNORMAL) LIPASE (05/08/2025 8:55 AM CDT) LIPASE 12(L) 13 - 60 U/L 05/08/2025 10:21 AM CDT [facility] [employer] [facility] Blood Venipuncture / Unknown 05/08/2025 8:55 AM CDT 05/08/2025 9:29 AM CDT Ivette Natarajan MD CHEMISTRY ORDERABLES Final Result MD[facility] LABORATORY SERVICES - [facility] CLIA# [id number] [address] [facility] [place] [place] [address] * (ABNORMAL) URINALYSIS WITH REFLEX MICROSCOPIC (05/08/2025 7:50 AM CDT) COLOR UA Yellow Pale to Dark Yellow 05/08/2025 8:23 AM CDT [facility] CLARITY UA Clear Clear 05/08/2025 8:23 AM CDT [facility] SPECIFIC GRAVITY UA 1.014 1.003 - 1.035 05/08/2025 8:23 AM CDT [facility] PH UA 6.0 5.0 - 8.0 05/08/2025 8:23 AM CDT [facility] LEUKOCYTE ESTERASE UA Negative Negative 05/08/2025 8:23 AM CDT [facility] NITRITE UA Negative Negative 05/08/2025 8:23 AM T [facility] PROTEIN UA Negative Negative 05/08/2025 8:23 AM T [facility] GLUCOSE UA 3+(A) Negative 05/08/2025 8:23 AM CDT [facility] KETONES UA 1+(A) Negative 05/08/2025 8:23 AM T [facility] UROBILINOGEN UA Normal <2.0 mg/dL 8:23 AM CDT [facility] BILIRUBIN UA Negative Negative 05/08/2025 8:23 AM CDT [facility] BLOOD UA Negative Negative 05/08/2025 8:23 AM CDT [facility] WBC UA 0-2 0 - 2 /hpf 05/08/2025 8:23 AM CDT [facility] RBC UA 0-2 0 - 2 /hpf 05/08/2025 8:23 AM CDT [facility] - . [facility] BACTERIA UA Negative Negative /hpf 05/08/2025 8:23 AM CDT [facility] - [facility] HYALINE CAST 0-2 None Seen, 0-2 /lpf 05/08/2025 8:23 AM CDT [facility] GRANULAR CAST 0-2(A) None Seen /lpf 05/08/2025 8:23 AM CDT [facility] Urine URINE SPECIMEN OBTAINED BY CLEAN CATCH PROCEDURE / Unknown Collection / Unknown 05/08/2025 7:50 AM CDT 05/08/2025 7:53 AM CDT Minal Villegas MD URINE ORDERABLES Final Result [facility]Voice [facility] SERVICES [facility]# [id number] [address] [facility] [address] * (ABNORMAL) DRUG SCREEN, URINE (05/08/2025 7:49 AM CDT) AMPHETAMINE QUAL, URINE Negative Negative 05/08/2025 8:25 AM CDT [facility] BARBITURATE QUAL, URINE Negative Negative 05/08/2025 8:25 AM CDT [facility] BENZODIAZEPINE QUAL, URINE Presumptive Positive(A) Negative 05/08/2025 8:25 AM CDT [facility] COCAINE QUAL URINE Negative Negative 05/08/2025 8:25 AM CDT [facility] OPIATE QUAL, URINE Negative Negative 05/08/2025 8:25 AM CDT [facility] CANNABINOIDS QUAL, URINE Negative Negative 05/08/2025 8:25 AM CDT [facility] PCP QUAL, URINE Negative Negative 8:25 AM CDT [facility] OXYCODONE QUAL, URINE Negative Negative 05/08/2025 8:25 AM CDT [facility] METHADONE QUAL, URINE Negative Negative 05/08/2025 8:25 AM CDT [facility] FENTANYL QUAL, URINE Negative Negative 05/08/2025 8:25 AM CDT [facility] CREATININE, URINE 87.5 40.0 - 278.0 mg/dL 05/08/2025 8:25 AM CDT [facility] Comment:Reference Range vari es with fluid intake and diet. Urine URINE SPECIMEN OBTAINED BY CLEAN CATCH PROCEDURE / Unknown Collection / Unknown 05/08/2025 7:49 AM CDT 05/08/2025 7:54 AM CDT Narrative [facility] - 05/08/2025 8:25 AM CDT This test [...] Brooke MD URINE ORDERABLES Fin al Result [facility]# [id number] 5 [facility] [place] [address] * XR ABDOMEN 1 VW (05/07/2025 11:40 PM CDT) Anatomical Region Laterality Modality Abdomen Computed Radiogr aphy 05/07/2025 11:4 0 PM CDT Impressions 05/08/2025 6:09 AM CDT IMPRESSION: 1. Nonspecific bowel gas pattern with no evidence of bowel obstruction. DICTATION LOCATION: Location 2 - [facility] Narrative 05/08/2025 6:09 AM CDT XR ABDOMEN [...] no evidence of bowel obstruction. DICTATION LOCATION: [address] Natacha Ellis MANDARIN CHINESE TEACHER DIAGNOSTIC IMAGING ORDERABL ES Final Result * RESPIRATORY PATHOGEN PCR PANEL (05/07/2025 4:48 PM CDT) Respiratory Pathogen PCR Panel NOT DETECTED No respiratory pathogen nucleic acids detected. 05/07/2025 6:13 PM CDT [facility] LABORATORY SERVICES [facility] COVID-19 PCR NOT DETECTED Not Detected 05/07/2025 6:13 PM T [facility] LABORATORY SERVICES [facility] Upper Respiratory ENTIRE NASOPHARYNX / Unknown Collection / Unknown 05/07/2025 4:48 PM CDT 05/07/2025 4:56 PM CDT [facility] LABORATORY SERVICES - [facility] - 05/07/2025 6:13 PM CDT [...] MICROBIOLOGY - GENERAL ORDERAB LES Final Result [facility]# [id number] [address] [place] [address] * (ABNORMAL) COMPREHENSIVE METABOLIC PANEL (05/07/2025 2:11 PM CDT) Only the most recent of2 resultswithin the time period is included. SODIUM 140 136 - 145 mmol/L 05/07/2025 2:50 PM CDT [facility] LABORATORY SERVICES - . [facility] POTASSIUM 4.1 3.5 - 5.0 mmol/L 05/07/2025 2:50 PM CDT [facility] LABORATORY [facility] - . [facility] CHLORIDE 103 98 - 107 mmol/L 05/07/2025 2:50 PM CDT [facility] LABORATORY [facility] CO2 27 22 - 29 mmol/L 05/07/2025 2:50 PM CDT [facility] LABORATORY SERVICES - [facility] CALCIUM 8.7 8.6 - 10.2 mg/dL 05/07/2025 2:50 PM CDT [facility] LABORATORY SERVICES - [facility] BUN 12 8 - 23 mg/dL 05/07/2025 2:50 PM CDT [facility] LABORATORY SERVICES - . [facility] CREATININE 1.01 0.67 - 1.17 mg/dL 05/07/2025 2:50 PM CDT [facility] LABORATORY [facility] Comment:The GFR result is no t clinically significant on patients <18 or >70 years of age. GLUCOSE 224(H) 74 - 99 mg/dL 05/07/2025 2:50 PM T [facility] TOTAL PROTEIN 5.7(L) 6.7 - 8.6 g/dL 05/07/2025 2:50 PM [facility] ALBUMIN 3.7 3.5 - 5.2 g/dL 05/07/2025 2:50 PM T [facility] BILIRUBIN TOTAL 0.6 0.0 - 1.1 mg/dL 05/07/2025 2:50 PM [facility] ALKALINE PHOSPHATASE 79 40 - 129 U/L 05/07/2025 2:50 PM [facility] AST 27 <41 U/L 05/07/2025 2:50 PM [facility] ALT 19 <42 U/L 05/07/2025 2:50 PM T [facility] GFR >60 mL/min/1.7 3 sq meter 05/07/2025 2:50 PM [facility] Comment:eGFR calculated with 2020 CKD-EPI equation. Vegetarian diet, extremely high or low muscle mass, and may affect results. Cystatin C with Glomerular Filtration Rate is a suitable alternative for these patients. ANION GAP 10 8 - 16 mmol/L 05/07/2025 2:50 PM [facility] Blood Venipuncture / Unknown 05/07/2025 2:11 PM CDT 05/07/2025 2:16 PM CDT [facility] - 05/07/2025 2:50 PM CDT Samples containing indocyanine green cause interferences on Total and/or Direct Bilirubin and must not be measured. us Minal Villegas MD CHEMISTRY ORDERABLES Final Res ult [facility] [employer] [facility]# [id number] [address] [facility] [place] [place] [address] * CT HEAD WO CONTRAST (05/05/2025 11:11 AM CDT) Anatomical Region Laterality Modality Head Computed Tomogra phy 05/05/2025 11:0 6 AM CDT Impressions 05/05/2025 12:17 PM CDT IMPRESSION: 1. No acute intracranial process. DICTATION LOCATION: Location 1 [facility] 05/05/2025 12:17 PM CDT EXAMINATION: CT [...] intracranial process. DICTATION LOCATION: Location 1 - [facility] Randa Sosa MD CT ORDERABLES Final Resu lt * GI PATHOGEN PCR PANEL (05/04/2025 7:00 PM CDT) Pathologist [facility] GI Pathogen PCR panel NOT DETECTED No nucleic acids detected. 05/04/2025 8:33 PM CDT [facility] Stool STOOL SPECIMEN / Unknown 05/04/2025 7:00 PM CDT 05/04/2025 7:00 PM CDT Narrative [facility] - 05/04/2025 8:33 PM CDT The Film [...] MICROBIOLOGY - GENERAL OR DERABLES Final Result [facility] [id number] [address] [place] [address] * VITAMIN B12 AND FOLATE (05/04/2025 4:11 PM CDT) VITAMIN B12 534 232 - 1,245 pg/mL 05/04/2025 5:19 PM CDT [facility] Comment:It has been reported that between 5 to 10% of patients with values between 200 and 400 pg/mL may experience neuropsychiatric and hematologic abnormalities due to occult B12 deficiency. Less than 1% of patients with values above 400 pg/mL will have symptoms. FOLATE, SERUM >20.0 >4.5 ng/mL 05/04/2025 5:19 PM CDT [facility] LABORATORY [facility] Blood Venipuncture / Unknown 05/04/2025 4:11 PM CDT 05/04/2025 4:24 PM CDT Jessica Aragon PA-C CHEMISTRY ORDERABLES Maryanne l Result Performing Organization Address City/[facility]/ZIP Co de Phone Number [facility]# [id number] [address] [place] [address] * (ABNORMAL) KETONES/BETA HYDROXYBUTYRATE (05/04/2025 9:42 AM CDT) BETA HYDROXYBUTYRATE 2.2(H) <0.4 mmol/L 05/04/2025 11:19 AM CDT [facility] Blood Venipuncture / Unknown 05/04/2025 9:42 AM CDT 05/04/2025 9:45 AM CDT Randa Sosa MD CHEMISTRY ORDERABLES Final Result Performing Organization Address City/[facility]/ZIP Co de Phone Number [facility]# [id number] [address] [place] [address] * TSH (05/04/2025 9:42 AM CDT) TSH 1.82 0.27 - 4.20 uIU/mL 05/04/2025 10:30 AM CDT [facility] LABORATORY [facility] Blood Venipuncture / Unknown 05/04/2025 9:42 AM CDT 05/04/2025 9:45 AM CDT Jessica Aragon PA-C CHEMISTRY ORDERABLES Maryanne l Result [facility]# [id number] [address] [place] [address] * (ABNORMAL) BLOOD GAS VENOUS (05/04/2025 9:42 AM CDT) [facility] PH, VENOUS 7.36 7.32 - 7.43 05/04/2025 9:50 AM CDT [facility] LABORATORY [facility] PCO2 VENOUS 42 38 - 50 mm Hg 05/04/2025 9:50 AM CDT [facility] LABORATORY [facility] PO2 VENOUS 96(H) 25 - 40 mm Hg 05/04/2025 9:50 AM CDT [facility] LABORATORY [facility] HCO3 VENOUS 23 22 - 29 mmol/L 9:50 AM T [facility] LABORATORY [facility] BASE EXCESS VENOUS -1.7 Reference Range Not Established mmol/L 05/04/2025 9:50 AM T [facility] LABORATORY [facility] HEMOGLOBIN VENOUS 13.7 No Ref Range Estab g/dL 05/04/2025 9:50 AM T [facility] LABORATORY [facility] O2 SAT EST VENOUS 98(H) 40 - 70 % 05/04/2025 9:50 AM T [facility] LABORATORY [facility] Blood, venous 05/04/2025 9:4 2 AM CDT 05/04/2025 9:45 AM CDT Akosua Bourgeois MD ABG ORDERABLES Final Resu lt [facility]# [id number] [address] [place] [address] * UT PROGRAM EVAL, IMPLANT DEVICE CARDVERT/DEFIB,MULTI-LEAD W/IN GLOBAL (04/18/2025 3:01 PM CDT) Only the most recent of2 resultswithin the time period is included. 04/18/2025 [...] Refer to clinic/hospital department * (ABNORMAL) HEMOGLOBIN A1C (03/09/2025 4:18 PM CDT) HEMOGLOBIN A1C 9.4(H) <5.7 % 03/09/2025 10:32 PM CDT [facility] LABORATORY [facility] EST. AVG GLUCOSE, A1C 223 mg/dL 03/09/2025 10:32 PM CDT [facility] LABORATORY [facility] Blood Venipuncture / Unknown 03/09/2025 4:18 PM CDT 03/09/2025 4:29 PM CDT Narrative [facility] LABORATORY [facility] - 03/09/2025 10:32 PM CDT HGB A1C INTERPRETATION NORMAL: <5.7% PRE-DIABETES: 5.7 - 6.4% DIABETES: 6.5% OR GREATER us Natacha Ellis APRN CHEMISTRY ORDERABLES Final Result [facility] LABORATORY [facility] CLIA# [id number] [address] [place] [address] * (ABNORMAL) LIPID PANEL (05/21/2022 2:46 PM CDT) Pathologist [facility] CHOLESTEROL 153 <200 mg/dL [facility]ca griselda Lopez HDL 48 > OR = 40 mg/dL [employer]anda Lopez TRIGLYCERIDE 266(H) <150 mg/dL [facility] [facility]Bianca Lopez Comment: If a non-fasting specimen was collected, consider repeat triglyceride testing on a fasting specimen if clinically indicated. Darshan et al. J. of Clin. Lipidol. 2015;9:129-169. LDL CALCULATED 70 mg/dL (calc) [facility]anda Lopez Comment: Reference range: <100 Desirable range <100 mg/dL for primary prevention; <70 mg/dL for patients with CHD or diabetic patients with > or = 2 CHD risk factors. LDL-C is now calculated using the Ariane calculation, which is a validated novel method providing better accuracy than the Friedewald equation in the estimation of LDL-C. Girma YING et al. GINA. 2013;310(19): 1421-9058 (http://education.[employer]faq/LKT003) CHOL/HDL RATIO 3.2 <5.0 (calc) [facility] MediaJorge LuisBianca griselda Lopez TOTAL NON-HDL CHOL(LDL+VLDL) 105 <130 mg/dL (calc) cafe[facility]ianca griselda Lopez Comment: For patients with diabetes plus 1 major ASCVD risk factor, treating to a non-HDL-C goal of <100 mg/dL (LDL-C of <70 mg/dL) is considered a therapeutic option. Test Performed at: [facility] [address] [place] [address] NikaKaren Juarez Blood 05/21/2022 2:46 PM CDT 05/21/2022 2:46 PM CDT us Dominic Young MD CHEMISTRY ORDERABLES Final Resul t [facility] [phone] [facility] [place] [address] [place] [address] * POC OCCULT BLOOD 1 CARD (01/21/2021 2:16 PM [facility]) Pathologist [facility] OCCULT BLOOD 1 CARD POC Negative Negative 01/21/2021 2:16 PM WELDER FIRST CLASS [facility] [employer] [facility] STUDENT LIFE DEAN NAME JAZZMINE GAN 01/21/2021 2:16 PM WELDER FIRST CLASS [facility] LABORATORY [facility] Stool STOOL SPECIMEN / Unknown 01/21/2021 2:16 PM WELDER FIRST CLASS 01/22/2021 10:40 AM WELDER FIRST CLASS Minal Villegas MD POINT OF CARE TESTING Final Re sult [facility] [employer] [facility] CLIA# [id number] 5 Eran [place] SULEMA M[place]ALES [address] from Last 3 Months or Most Recently Relevant to Health Maintenance Insurance MEDICARE PART A AND B [facility] RX [employer] Medicare Part D RX [employer] (INTERNAL) [facility] Plans RX EMDEON Commercial Advance Directives For more information, please contact: [phone] Documents on File Type Date Recorded Patient Eeg Technician Expl anation Advance Directive POA 02/07/2021 9:09 [...] 3:25 PM 03/11/2025 6:40 PM Care Teams Ese Teacher Relationship Specialty Start Date End Date Eric Pretty MD [address] [place] [address] (work) PCP - General Internal Medicine 11/24/19
--- OUTSIDE RECORDS SUMMARY | 2025-06-20 10:41 | XMS_ITS | Referral Summary ---
Author Organization [facility] [address] Address [address] [place] [address] Care Team Providers Care Handle Maker Name Role Phone Eric Pretty MD Primary Care Provider [phone] Dominic Young MD Unavailable [phone] Carlos Hernandez MD Unavailable [phone] Encounters Date Type Department Care Team Description 06/13/2025 Orders Only [facility] Cardiology [address] [place] [address] Farhad Valdes MD 04/08/2025 Telephone [facility] [address] [place] [phone] Natacha Henley 04/01/2025 Telephone [facility] [address] [place] [phone] Olga Goodson Please schedule next Reclast. Thank you! 04/01/2025 1:15 PM CDT Office Visit [facility] [address] [place] [phone] Olga Bueno PA Rheumatoid arthritis of [...] occurs. Assessment & Plan (12/24/2024 12:49 PM OVERSIZE LOAD PILOT ESCORT): BMD 06/09/24: LFN 0.761, tscore -1.2 Total [...] occurs. Assessment & Plan (09/23/2024 2:49 PM OVERSIZE LOAD PILOT ESCORT): BMD 06/09/24: LFN 0.761, tscore -1.2 Total [...] candidate Assessment & Plan (09/23/2024 1:14 PM OVERSIZE LOAD PILOT ESCORT): Xrays 2016: Moderate osteoarthritis of the acromioclavicular [...] walks. Assessment & Plan (12/12/2022 3:07 PM OVERSIZE LOAD PILOT ESCORT): R shoulder hurting for the past 2-3 days. May have been triggered by carrying in grocery bags. Hx rotator cuff tears per pt's report. Recommend heat/ice, rest. Will order PT. Consider seeing ortho if not improving Atherosclerotic cardiovascular disease Assessment & Plan (11/12/2022 3:08 PM OVERSIZE LOAD PILOT ESCORT): S/p multiple MIs/cardiac arrest, sick sinus, CHF. Has pacemaker. 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 On eliquis and clopidogrel History of DVT of lower extremity 11/12/2022 History of prostate cancer 11/12/2022 Overview (11/12/2022): Treated with radiation in 2017 Chronic pain syndrome 12/16/2021 Type 2 diabetes mellitus wit h diabetic neuropathy, unspecified 11/17/2020 Chronic pain of right knee 06/08/2019 Assessment & Plan (09/23/2024 1:05 PM OVERSIZE LOAD PILOT ESCORT): Mild OA on xray from 06/04. Had [...] benefit. Assessment & Plan (01/04/2020 12:03 PM OVERSIZE LOAD PILOT ESCORT): Mild OA on xray from 06/04. Had cortisone shots years ago but they spiked his sugars. Had zilretta on 10/29/19 as this formulation causes less systemic steroid effect than regular triamcinolone injection. However, he reported no benefit. Assessment & Plan (10/26/2019 2:15 PM OVERSIZE LOAD PILOT ESCORT): Mild OA on xray from 06/04. Had [...] mgmt: [facility] (Lola Cerna) in [facility] Assessment & Plan (04/01/2025 4:13 PM CDT): 3 prior back surgeries and still having a lot of pain. Decided against pursuing any more surgery. Has been to pain mgmt in [facility]. Continues to take gabapentin for neuropathic pain. Assessment & Plan (12/24/2024 2:28 PM OVERSIZE LOAD PILOT ESCORT): 3 prior back surgeries and still having a lot of pain. Decided against pursuing any more surgery. Has been to pain mgmt in [facility]. Continues to take gabapentin for neuropathic pain. Assessment & Plan (09/23/2024 1:05 PM OVERSIZE LOAD PILOT ESCORT): 3 prior back surgeries and still having a lot of pain. Decided against pursuing any more surgery. Has been to pain mgmt in [facility]. Continues to take gabapentin for neuropathic pain. Assessment & Plan (06/22/2024 3:21 PM CDT): 3 prior back surgeries and still having a lot of pain. Decided against pursuing any more surgery. Has been to pain mgmt in [facility]. Continues to take gabapentin for neuropathic pain. Assessment & Plan (03/16/2024 4:37 PM CDT): 3 prior back surgeries and still having a lot of pain. Decided against pursuing any more surgery. Has been to pain mgmt in [facility]. Continues to take gabapentin for neuropathic [...] surgery. Has been to pain mgmt in [facility]. Continues to take gabapentin for neuropathic pain Assessment & Plan (07/28/2023 3:39 PM CDT): 3 prior back surgeries and still having a lot of pain. Decided against pursuing any more surgery. Has been to pain mgmt in [facility]. Continues to take gabapentin for neuropathic pain Assessment & Plan (05/27/2023 4:30 PM CDT): 3 prior back surgeries and still having a lot of pain. Thinking about going back to see nsg for opinion if there is anything else he can do. Has been to pain mgmt in [facility]. Continues to take gabapentin for neuropathic pain Assessment & Plan (11/12/2022 3:05 PM OVERSIZE LOAD PILOT ESCORT): 3 prior back surgeries and he does not want to have any additional surgery. Sees pain mgmt in [facility]. Discussed pain stimulator but he deferred for now. Continues to take gabapentin for neuropathic pain Assessment & Plan (01/04/2020 12:04 PM OVERSIZE LOAD PILOT ESCORT): No surgery planned. Continue to f/u with pcp and pain mgmt. Encouraged to continue water exercise. Declines PT. Discuss weight loss treatments with pcp. He used to be on duloxetine for mood and chronic pain and can't remember why he stopped. He would be willing to restart this now. Begin 30mg daily. Assessment & Plan (10/26/2019 2:16 PM OVERSIZE LOAD PILOT ESCORT): No surgery planned. Continue to f/u with [...] & Plan (08/21/2018 2:15 PM CDT): Saw vacation guide who put him back on midodrine. Just [...] Neg quantiferon 12/18 Neg hepatitis 12/18 utd [id number], [id number], yearly flu shot. Had shingrix Had RSV vaccine Had original COVID vaccine series but not additional boosters Assessment & Plan (12/24/2024 12:50 PM OVERSIZE LOAD PILOT ESCORT): Neg quantiferon 12/18 Neg hepatitis 12/18 utd [id number], ciptyshpt16, yearly flu shot. Had shingrix Had RSV vaccine Had original COVID vaccine series but not additional boosters Assessment & Plan (09/23/2024 1:19 PM OVERSIZE LOAD PILOT ESCORT): Neg quantiferon 12/18 Neg hepatitis 12/18 utd , , yearly flu shot. Had shingrix Had RSV vaccine Had original COVID vaccine series but not additional boosters Assessment & Plan (06/22/2024 1:27 PM CDT): Neg quantiferon 12/18 Neg hepatitis 12/18 utd otramqz28, pijvjkvor16, yearly flu shot. Recommend shingrix, COVID booster Assessment & Plan (03/16/2024 2:20 PM CDT): Neg quantiferon 12/18 Neg hepatitis 12/18 utd jvozczi13, , yearly flu shot. Recommend shingrix, COVID booster Assessment & Plan (01/27/2024 1:06 PM CDT): Neg quantiferon 12/18 Neg hepatitis 12/18 utd cdsrajd54, fjwaadyes27, yearly flu shot. Recommend shingrix, COVID booster Assessment & Plan (10/28/2023 3:46 PM OVERSIZE LOAD PILOT ESCORT): Neg quantiferon 12/18 Neg hepatitis 12/18 utd yegipmp80, , yearly flu shot. Recommend shingrix, COVID booster Assessment & Plan (07/28/2023 2:25 PM CDT): Neg quantiferon 12/18 Neg hepatitis 12/18 utd [id number], sozbtnput48, yearly flu shot. Recommend shingrix, COVID booster Assessment & Plan (05/27/2023 1:55 PM CDT): Neg quantiferon 12/18 Neg hepatitis 12/18 utd , oylbozeef78, flu shot. Recommend shingrix, COVID boosters if not done Assessment & Plan (04/17/2023 4:33 PM CDT): Neg quantiferon 12/18 Neg hepatitis 12/18 utd [id number], jrpzoljwd28, flu shot. Recommend shingrix, COVID boosters if not done Assessment & Plan (12/12/2022 3:06 PM OVERSIZE LOAD PILOT ESCORT): Neg quantiferon 12/18 Neg hepatitis 12/18 utd [id number], [id number], flu shot. Recommend shingrix, COVID boosters if not done Will advise Evusheld if he goes back on Rituxan in the future Assessment & Plan (11/12/2022 3:05 PM OVERSIZE LOAD PILOT ESCORT): Neg quantiferon 12/18 Neg hepatitis 12/18 utd yvqratt37, , flu shot. Recommend shingrix, COVID boosters if not done Will advise Evusheld if he goes back on Rituxan in the future Assessment & Plan (01/04/2020 11:23 AM OVERSIZE LOAD PILOT ESCORT): Neg quantiferon / Neg hepatitis 12/18 utd ynuywbp40, fkzjannmr92, flu shot. Recommend shingrix Assessment & Plan (10/26/2019 11:19 AM OVERSIZE LOAD PILOT ESCORT): Neg quantiferon 18 Neg hepatitis 12/18 utd , [id number], flu shot. Recommend shingrix Assessment & Plan (08/10/2019 11:37 AM CDT): Neg quantiferon /18 Neg hepatitis 18 Assessment & Plan (06/08/2019 12:09 PM CDT): Neg quantiferon /18 Neg hepatitis 1218 Assessment & Plan (03/26/2019 8:13 AM CDT): Neg quantiferon /18 Neg hepatitis 18 Assessment & Plan (12/24/2018 9:59 PM OVERSIZE LOAD PILOT ESCORT): Neg quantiferon 18 Neg hepatitis 18 Syncope and collapse 08/28/2017 Orthostasis 08/28/2017 Coronary artery disease invo lving [place] coronary artery of [place] heart with angina pectoris 08/28/2017 Assessment & Plan (01/04/2020 12:04 PM OVERSIZE LOAD PILOT ESCORT): Pt had abnormal stress test followed by cardiac cath, stenting. Symptoms currently improved. vacation guide Dr. Young. Requested lipid panel so will [...] Overview (02/21/2017): Seasonal allergies Rheumatoid arthritis of [facility] sites with negative rheumatoid [...] needed Assessment & Plan (12/24/2024 2:28 PM OVERSIZE LOAD PILOT ESCORT): cdai = 33, high Was not seen [...] needed Assessment & Plan (09/23/2024 2:48 PM OVERSIZE LOAD PILOT ESCORT): cdai = 17, moderate Was not seen [...] weeks Assessment & Plan (10/28/2023 3:45 PM OVERSIZE LOAD PILOT ESCORT): cdai = 10, low, improving Was not [...] month Assessment & Plan (12/12/2022 3:05 PM OVERSIZE LOAD PILOT ESCORT): cdai = 27, high Last seen in [...] month Assessment & Plan (11/12/2022 3:10 PM OVERSIZE LOAD PILOT ESCORT): cdai = 32, high Last seen in [...] month Assessment & Plan (01/04/2020 11:21 AM OVERSIZE LOAD PILOT ESCORT): cdai = 26, high Pt received first [...] months Assessment & Plan (10/26/2019 2:17 PM OVERSIZE LOAD PILOT ESCORT): cdai = 30 Pt received first Rituxan [...] today. Assessment & Plan (12/24/2018 9:58 PM OVERSIZE LOAD PILOT ESCORT): cdai = 13, low-moderate Pt received first [...] doing. Assessment & Plan (10/26/2018 9:41 AM OVERSIZE LOAD PILOT ESCORT): High cdai. Patient has been having more [...] on file Legal Sex Male 3:50 PM OVERSIZE LOAD PILOT ESCORT Gender Identity Not on file Sexual Orientation [...] home safety. Medical Devices Implanted Type Area Well Driller Device Identifier Shelf Expiration Date Model / Serial / Lot Stents Heart Description:cardiac stents Hardware Spine Lumbar Description:lumbar hardware Procedures Procedure Name Priority Date/Time Associated Diagnosis Comments CARDIOLOGY DOCUMENT SCAN Routine 06/11/2025 3:50 PM CDT COMPREHENSIVE METABOLIC PANEL Routine 12/24/2024 1:20 PM OVERSIZE LOAD PILOT ESCORT 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 factor (HCC) High risk medications (not anticoagulants) long-term use LIPID PANEL Routine 01/04/2020 11:48 AM OVERSIZE LOAD PILOT ESCORT HEPATITIS PANEL, ACUTE Routine 8 11:17 AM OVERSIZE LOAD PILOT ESCORT HEMOGLOBIN A1C Routine 08/05/2014 3:33 PM CDT from Last 3 Months or Most Recently Relevant to Health Maintenance Results * Cardiology Document Scan (06/11/2025 3:50 PM CDT) Anatomical Region Laterality Modality Other us Farhad Valdes MD CV CARDIAC SERVICES PROCEDURES F inal Result * (ABNORMAL) Comprehensive metabolic panel (12/24/2024 1:20 PM OVERSIZE LOAD PILOT ESCORT) Glucose 96 65 - 99 mg/dL [facility] [...] [facility] Blood 12/24/2024 1:20 PM OVERSIZE LOAD PILOT ESCORT 12/24/2024 1:21 PM OVERSIZE LOAD PILOT ESCORT [address] LAB BLOOD ORDERABLES Fin al Result [facility] [address] [place] [address] * (ABNORMAL) Lipid panel (01/04/2020 11:48 AM OVERSIZE LOAD PILOT ESCORT) Cholesterol 155 <200 mg/dL [facility] [place] HDL 50 > OR = 40 mg/dL [facility] [place] Triglycerides 355(H) <150 mg/dL [facility] [place] Comment: If a non-fasting specimen was collected, consider repeat triglyceride testing on a fasting specimen if clinically indicated. Darshan et al. J. of Clin. Lipidol. 2015;9:129-169. LDL 62 mg/dL (calc) [facility] [place] Comment: Reference range: <100 Desirable range <100 mg/dL for primary prevention; <70 mg/dL for patients with CHD or diabetic patients with > or = 2 CHD risk factors. LDL-C is now calculated using the Girma-Rachel calculation, which is a validated novel method providing better accuracy than the Friedewald equation in the estimation of LDL-C. Girma SS et al. GINA. 2013;310(19): 4021-4379 (http://education.White Source/faq/CWW950) Chol/HDL ratio 3.1 <5.0 (calc) [facility] [place] Non-HDL, (LDL+VLDL) 105 <130 mg/dL (calc) [facility] [place] Comment: For patients with diabetes plus 1 major ASCVD risk factor, treating to a non-HDL-C goal of <100 mg/dL (LDL-C of <70 mg/dL) is considered a therapeutic option. 01/04/2020 11:4 8 AM OVERSIZE LOAD PILOT ESCORT 01/04/2020 11:49 AM OVERSIZE LOAD PILOT ESCORT Narrative Resulting Agency Comment Performing Organization Information: Site ID: AB Name: [employer] [facility] Address: [address] [place], [place] [address]ner [facility] [place] [address] Director: Angie Vaca D.O., MPH us [address] LAB BLOOD ORDERABLES Fin al Result Performing Organization Address City/[facility]/ZIP Co de Phone Number [facility] [place] * Hepatitis panel, acute (11/03/2018 11:17 AM OVERSIZE LOAD PILOT ESCORT) Hep A IgM NON-REACTI VE NON-REACTI VE [facility] [place] HepBsAg NON-REACTI VE NON-REACTI VE [facility] [place] Hep B core IgM NON-REACTI VE NON-REACTI VE [facility] [place] Hep C Ab NON-REACTI VE NON-REACTI VE [facility] [place] SIGNAL TO CUT-OFF 0.02 <1.00 [facility] [place] 11/03/2018 11:1 7 AM OVERSIZE LOAD PILOT ESCORT 11/03/2018 11:18 AM OVERSIZE LOAD PILOT ESCORT Narrative Resulting Agency Comment Performing Organization Information: Site ID: AB Name: [facility]ined[facility] Address: [address] [place] [address] [place] [address] Director: Angie Vaca D.O., MPH us Master Henley III, MD LAB MICROBIOLOGY - GENERAL ORDERABLES Final Result Performing Organization Address City/[facility]/ZIP Co de Phone Number [facility] - [...] of diabetes for children. Test performed at [facility] [address] [place] [address] Director: ANGIE VACA DO,MPH 08/05/2014 3:[address] LAB BLOOD ORDERABLES [facility] al Result [facility] HISTORICAL RESULTS from Last 3 Months or Most Recently Relevant to Health Maintenance Insurance MEDICARE MEDICARE [facility] MEDICARE [facility] BLUE CROSS MEDICARE SUPPLEMENT MEDICARE Care Teams Handle Maker Relationship Specialty Start Date End Date Eric Pretty MD [address] [facility] [address] [facility] [address] [place] [address] PCP - General Internal Medicine 01/28/18 Dominic Young MD [address] [facility] [address] [place] [address] Consulting Physician Cardiology 01/04/20 Carlos Hernandez MD [address] [place] [address] Consulting Physician Rheumatology 01/27/24
--- OUTSIDE RECORDS SUMMARY | 2025-06-20 10:41 | XMS_ITS | Encounter Summary ---
Author Organization [facility] Address [address] [address] Care Team Providers Care Collar Shaper Operator Name Role Phone Jarvis Harding Primary Care Provider [phone] Jarvis Harding Primary Care Provider [phone] Kindra Fernandez MD Primary Care Provider Eric Pretty MD Primary Care Provider [phone] Kale MONTANA MD, Master Hunt Unavailable [phone] Dominic Young MD Unavailable [phone] Carlos Hernandez MD Unavailable [phone] Encounter Details Date Type Department Care Team (Late st Contact Info) Description 11/07/2016 Orders Only [facility] ProviderChuck MD [address] [place] [address] Social History Tobacco Use Types Packs/Day Years Used Date Smoking Tobacco: Former Alcohol Use Standard Drinks/Week Comments Yes 0 (1 standard drink = 0.6 oz pur e alcohol) Sex and Gender Information Value Date Recorded Sex Assigned at Not on file Legal Sex Male 3:50 PM MONOLOGIST Gender Identity Not on file Sexual Orientation [...] on filedocumented in this encounter Care Teams Collar Shaper Operator Relationship Specialty Start Date End Date Jarvis Harding [address] [place] [address] PCP - General 02/14/17 08/27/17 Jarvis Harding [address] [place] [address] PCP - General 07/13/14 02/13/17 Kindra Fernandez MD [address] [place] [address] PCP - General Family Practice 08/28/17 01/27/18 Eric Pretty MD [address] [place] [address] [place] [address] PCP - General Internal Medicine 01/28/18 Master Henley III, MD [address] [place] [address] Consulting Physician Rheumatology 01/28/18 01/26/24 Dominic Young MD [address] [place] [address] Consulting Physician Cardiology 01/04/20 Carlos Hernandez MD [address] [place] [address] Consulting Physician Rheumatology 01/27/24 documented as of this encounter
--- OUTSIDE RECORDS SUMMARY | 2025-06-20 10:41 | XMS_ITS | Clinical Summary ---
Author Organization [facility] Address [address] [place] [address] Care Team Providers Care Physical Sciences Professor Name Role Phone Eric Pretty MD Primary Care Provider [phone] Source Comments [facility],non-owned Affiliates and Associated Physician Practices is amultiple site organization consisting of ambulatory clinics and hospital sitesin [place], [place], [place] and [place]. This disclosure is being madepursuant to the Care Everywhere program and may not contain all information available regarding this patient. Last updated 18.[facility] Social History Tobacco Use Types Packs/Day Years Used Date Smoking Tobacco: Never Assessed Sex and Gender Information Value Date Recorded Sex Assigned at Not on file Legal Sex Male 7:02 AM CLINICAL PHLEBOTOMIST Gender Identity Not on file Sexual Orientation [...] age to complete this topic [place] [address] MEDICARE [facility] Address: [address] [place] [address] MEDICARE Care Teams Physical Sciences Professor Relationship Specialty Start Date End Date Eric Pretty MD [address] [place] [address] PCP - General 01/15/23
--- OUTSIDE RECORDS SUMMARY | 2025-06-20 10:41 | XMS_ITS | Encounter Summary ---
Author Organization [facility] Address [address] [address] Care Team Providers Care Network Operations Project Manager Name Role Phone Jarvis Harding Primary Care Provider [phone] Jarvis Harding Primary Care Provider [phone] Kindra Fernandez MD Primary Care Provider Eric Pretty MD Primary Care Provider [phone] Kale MONTANA MD, Master Hunt Unavailable [phone] Dominic Young MD Unavailable [phone] Carlos Hernandez MD Unavailable [phone] Encounter Details Date Type Department Care Team (Late st Contact Info) Description 12/17/2016 Orders Only [facility] ProviderChuck MD [address] [place] [address] Social History Tobacco Use Types Packs/Day Years Used Date Smoking Tobacco: Former Alcohol Use Standard Drinks/Week Comments Yes 0 (1 standard drink = 0.6 oz pur e alcohol) Sex and Gender Information Value Date Recorded Sex Assigned at Not on file Legal Sex Male 3:50 PM EMBOSSING UNIT OPERATOR Gender Identity Not on file Sexual [...] on filedocumented in this encounter Care Teams Network Operations Project Manager Relationship Specialty Start Date End Date Jarvis Harding [address] [place] [place] [address] PCP - General 02/14/17 08/27/17 Jarvis Harding [address] [place] [address] PCP - General 07/13/14 02/13/17 Kindra Fernandez MD [address] [place] [address] PCP - General Family Practice 08/28/17 01/27/18 Eric Pretty MD [address] [place] [address] PCP - General Internal Medicine 01/28/18 Master Henley III, MD [address] [place] [address] Consulting Physician Rheumatology 01/28/18 01/26/24 Dominic Young MD [address] [place] [address] Consulting Physician Cardiology 01/04/20 Carlos Hernandez MD [address] [place] [address] Consulting Physician Rheumatology 01/27/24 documented as of this encounter
[2025-06-20 10:55] LABS: Alanine Aminotransferase 38 U/L (6-50); Albumin Level 4.6 g/dL (3.5-5.1); Alkaline Phosphatase 109 U/L (38-126); Anion Gap 12 mmol/L (4-12); Aspartate Amino Transferase 64 U/L (17-59); Bilirubin,Total 1.8 mg/dL (0.2-1.3); Blood Urea Nitrogen 19 mg/dL (9-20); Calcium 9.4 mg/dL (8.4-10.2); Carbon Dioxide 22 mmol/L (22-30); Chloride 99 mmol/L (98-107); Estimated Glomerular Filt Rate > 60; Glucose 281 mg/dL (65-110); Lipase 39 U/L (23-300); Potassium 4.4 mmol/L (3.4-5.0); Sodium 133 mmol/L (137-145); Total Protein 7.6 g/dL (6.3-8.2)
[2025-06-20] MEDS: LORazepam INJ (*CRX) 2 MG/ML VIAL 1 MG IV PUSH (11:05)
[2025-06-20 11:11] VITALS: BP 146/104; PULSE 80; RESP 20; O2SAT 100
[2025-06-20 11:47] LABS: Add Urine Microscopic? YES; Appearance Urine Clear (Clear); Glucose Urine UA 3+ mg/dL (Negative); Leukocyte Esterase Ur Negative LEU/UL (Negative); Nitrate Urine Negative (Negative); Non Pathogenic Casts 0-2; Specific Grav Ur 1.028 (1.001-1.035)
[2025-06-20 12:01] VITALS: BP 151/72; PULSE 80; RESP 20; O2SAT 100
--- NOTE | 2025-06-20 13:47 | ED_ITS ---
HPI - General Adult General Chief complaint: Nausea/Vomiting/Diarrhea Stated complaint: nausea Time Seen by Provider: 06/20/25 10:15 Source: patient Mode of arrival: EMS Limitations: no limitations History of Present Illness HPI narrative: 79-year-old with a history of hypertension, anxiety disorder, DVT on Eliquis, diabetes was brought in from home with the complaints of not feeling well, having nausea since this morning patient repeatedly states help me help me help me. He denies having any chest pain or shortness of breath. Onset (ago): hour(s) (4) Severity: moderate Pain Consistency: constant Relieving factors: none Exacerbating factors: none Associated symptoms: denies other symptoms Related Data Home Medications ?Medication ?Instructions ?Recorded ?Confirmed ?Last Taken ?Type clopidogrel 75 mg tablet 75 mg PO DAILY 06/06/22 06/17/25 06/11/25 09:00 History 75 mg ferrous sulfate 325 mg (65 mg 325 mg PO DAILY 10/23/23 06/17/25 06/11/25 09:00 History iron) tablet 325 mg folic acid 1 mg tablet 1 mg PO DAILY 01/06/24 06/17/25 06/11/25 09:00 History 1 mg methotrexate sodium 2.5 mg tablet 15 mg PO WEEKLY 01/06/24 06/17/25 06/11/25 09:00 History 10 mg prednisone 5 mg tablet 5 mg PO Q12H 11/16/24 06/17/25 06/11/25 08:00 History 5 mg apixaban 5 mg tablet (Eliquis) 5 mg PO BID 05/06/25 06/17/25 06/11/25 09:00 History 5 mg cholecalciferol (vitamin D3) 25 25 mcg PO DAILY 05/06/25 06/17/25 06/11/25 09:00 History mcg (1,000 unit) tablet 25 mcg empagliflozin 25 mg tablet 25 mg PO DAILY 05/06/25 06/17/25 06/11/25 09:00 History (Jardiance) 25 mg gabapentin 300 mg capsule 300 mg PO TID 05/06/25 06/17/25 06/11/25 09:00 History 300 mg nitroglycerin 0.6 mg sublingual 0.6 mg sublingual Q5-15M PRN chest 05/06/25 06/17/25 Unknown History tablet pain spironolactone 25 mg tablet .5 mg PO DAILY 06/11/25 06/17/25 06/11/25 09:00 History 12.5 mg Allergies Allergy/AdvReac Type Severity Reaction Status Date / Time alprazolam (From Xanax) Allergy Intermediate Itching Verified 06/20/25 11:20 fentanyl Allergy Intermediate Itching Verified 06/20/25 11:20 tramadol Allergy Intermediate Itching Verified 06/20/25 11:20 Review of Systems 2 Review of Systems: All systems reviewed & are unremarkable except as noted in HPI and below Constitutional: Constitutional: Reports no additional constitutional complaints Eyes: Eyes: Reports no additional eye complaints ENT: Reports system reviewed and no additional complaints, except as documented Cardiovascular: Cardiovascular: Reports no additional cardiovascular complaints Respiratory: Respiratory: Reports no additional respiratory complaints Gastrointestinal: Gastrointestinal: Reports as per HPI Musculoskeletal: Musculoskeletal: Reports no additional musculoskeletal complaints Neurologic: Reports system reviewed and no additional complaints, except as documented Psychiatric: Psychiatric: Reports as per HPI PMF Past Medical History Medical History Pneumonia Nasal drainage Groin rash Cellulitis DVT (deep venous thrombosis) Left groin mass Sinus drainage Tinea Cough URI (upper respiratory infection) Inguinal hernia Head injury Hx of colonic polyps Colon cancer screening Muscle weakness (~11/2022) Sick sinus syndrome Fall Mastodynia of left breast Left anterior shoulder pain Costochondritis Swelling of joint, knee, left Swelling of left lower extremity Physical debility Hospital discharge follow-up A-fib Rupture of left Achilles tendon SOB (shortness of breath) Tear of left rotator cuff Type 2 diabetes mellitus with diabetic polyneuropathy, 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, with long-term current use of insulin Unspecified place in other non-institutional residence as the place of occurrence of the external cause Neck pain Changing skin lesion Vision changes Chronic low back pain Left knee pain Claustrophobia Diarrhea Post-phlebitic syndrome History of myocardial infarction History of blood clots Toe pain, right Bruise of toe Toe infection Swelling of left hand Pilonidal cyst Obstructive sleep apnea Intolerant to CPAP Chronic orthostatic hypotension Essential tremor BMI 35.0-35.9,adult Back pain with history of spinal surgery ASHD (arteriosclerotic heart disease) Tobacco abuse Trauma Non-healing skin lesion C. 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 Dyslipidemia Benign prostatic hyperplasia Colon polyps Coronary artery disease With history of stent to the mid LAD in November 2015. Cardiac catheterization in May 2017 showed a patent LAD stent and 90% ostial stenosis in a 3rd diagonal, which was a small vessel and jailed by previous stent. No other high-grade lesions were noted. Reportedly, he had a stent in November 2019 done at [facility] in [place]. Insulin dependent type 2 diabetes mellitus With diabetic peripheral neuropathy. Hemoglobin A1c was 8.3% in March 2021 Depression with anxiety Prostate CA Status post external radiation. GERD (gastroesophageal reflux disease) Rheumatoid arthritis Surgical History Surgical History Pacemaker placed 12/14/2021 History of removal of pigmented skin lesion Status post cataract extraction of both eyes with insertion of intraocular lens S/P tooth extraction Status post lumbar spine operation X3 most recently December 2020 Status post tonsillectomy Status post inguinal hernia repair Status post cholecystectomy Status post vasectomy Hx of heart artery stent X3 Family History Family History Father Asthma Family history of cardiovascular disease Mother Family history of cardiovascular disease Family history of arthritis Family history of Alzheimer's disease Family history of malignant neoplasm of kidney Other Diabetes mellitus Hypertension Social History Social History Social History: He lives in [place] with his of 55 years. They have 1 son. He quit smoking cigarettes in February of 1989. Over the last several years he started to smoke a pipe, typically 5 to 6 times per day. He drinks perhaps 1 alcoholic beverage a month. No drug use. He designates his , Monika, as his surrogate decision maker. He is listed as a full code. Smoking packs per day: 0.5 Smoking cigarettes per day: 10.0 Years smoked: 30 Smoking pack-years: 15.00 Smoking status: Current every day smoker Tobacco type: pipe Additional smoking assessment comments: CURRENTLY SMOKES A PIPE Alcohol intake: never Drinks per week: 1 Alcohol use details: occasional beer while cooking Substance use: never Substance use type: does not use Do You Feel Safe in your Home?: Yes Lack of Transportation: No Lack of Food: Never True Current Housing: I Have Housing Concerned About Future Housing: No Difficulty Paying Gas/Electric Bills: No Difficulty Paying for Meds: No Currently Unemployed: No Education: Decline to Answer Difficulty w/ Childcare or Family Care: No Living arrangements: with family Additional living arrangements comments: patient lives with Occupation/Education: retired Gender identity (if verbalized by the patient): Male Sexual Orientation (if Verbalized by the Patient): Straight or Heterosexual Spiritual care concerns: No Agree to blood products: Yes Exam 2 Narrative: GENERAL: Well-appearing, well-nourished, and in no acute distress. Anxious HEAD: Normocephalic, atraumatic. EYES: PERRLA and EOMI. ENT: Nares clear, no rhinorrhea or epistaxis. Mucous membranes moist. NECK: Supple. CHEST: Clear to auscultation. No respiratory distress. HEART: Regular rate and rhythm. No murmur heard. Normal peripheral pulses. ABDOMEN: Soft, nontender, nondistended, normal active bowel sounds. EXTREMITIES: Normal range of motion. No edema. SKIN: Warm, dry, no rash. NEURO: No focal deficits. Alert and oriented x3. PSYCH: Normal mood and affect. Course Course Emergency Course: Patient was given total of 8 mg of Zofran for his nausea, morphine for pain. She still seems to be very anxious did give him Ativan which calmed him down and he states he is feeling much better. CT scan was unremarkable. Discussed all the lab work and CT findings with she will prefers a stronger anti anxiety medication. The night discussed with Dr. Pretty agreed with Ativan and can be discharged home. Vital Signs Vital signs: Vital Signs Temperature 36.6 C 06/20/25 09:51 Pulse Rate 80 06/20/25 09:51 Respiratory Rate 20 06/20/25 09:51 Blood Pressure 147/73 H 06/20/25 09:51 Pulse Oximetry 100 06/20/25 09:51 Temperature 36.6 C 06/20/25 09:51 Pulse Rate 80 06/20/25 12:01 Respiratory Rate 20 06/20/25 12:01 Blood Pressure 151/72 H 06/20/25 12:01 Pulse Oximetry 100 06/20/25 12:01 Medical Decision Making Vital Signs Vital Signs: Vital Signs Temperature 36.6 C 06/20/25 09:51 Pulse Rate 80 06/20/25 09:51 Respiratory Rate 20 06/20/25 09:51 Blood Pressure 147/73 H 06/20/25 09:51 Pulse Oximetry 100 06/20/25 09:51 Temperature 36.6 C 06/20/25 09:51 Pulse Rate 80 06/20/25 12:01 Respiratory Rate 20 06/20/25 12:01 Blood Pressure 151/72 H 06/20/25 12:01 Pulse Oximetry 100 06/20/25 12:01 Lab Data Lab results reviewed: Yes I reviewed the patient's lab results. 06/20/25 10:27 06/20/25 10:27 Labs: Lab Results 06/20/25 06/20/25 Range/Units 10:27 11:36 WBC 8.6 (4.5-10.0) K/mm3 RBC 4.80 (4.6-6.20) M/mm3 Hgb 14.8 (14.0-18.0) g/dL Hct 44.5 (42.0-52.0) % MCV 92.7 (80-100) fl MCH 30.8 (26-34) pg MCHC 33.3 (32-36) g/dl RDW 15.9 H (11.5-14.5) % Plt Count 269 (150-375) k/mm3 MPV 9.3 (7.4-10.4) fl Immature Gran % (Auto) 0.6 H (0-0.5) % Neut % (Auto) 82.0 H (45.5-73.1) % Lymph % (Auto) 9.2 L (18.3-44.2) % Republic % (Auto) 7.8 (2.6-8.5) % Eos % (Auto) 0.2 (0-4.4) % Baso % (Auto) 0.2 (0.2-1.2) % Lymph # (Auto) 0.79 L (0.9-3.2) K/mm3 Republic # (Auto) 0.7 H (0.1-0.6) K/mm3 Eos # (Auto) 0.0 (0-0.3) K/mm3 Baso # (Auto) 0.0 (0.0-0.1) K/mm3 Abs Immat Gran (auto) 0.05 H (0.00-0.031) K/mm3 Absolute Neuts (auto) 7.0 H (1.3-6.7) K/mm3 Absolute Nucleated RBC 0.000 (0.0-0.012) K/mm3 Nucleated RBC % 0.0 (0.0-0.2) % Sodium 133 L (137-145) mmol/L Potassium 4.4 (3.4-5.0) mmol/L Chloride 99 (98-107) mmol/L Carbon Dioxide 22 (22-30) mmol/L Anion Gap 12 (4-12) mmol/L BUN 19 (9-20) mg/dL Creatinine 1.10 (0.7-1.3) mg/dL Estim Creat Clear Calc Not Reportable Estimated GFR > 60 (59 - ) Glucose 281 H (65-110) mg/dL Calcium 9.4 (8.4-10.2) mg/dL Total Bilirubin 1.8 H (0.2-1.3) mg/dL AST 64 H (17-59) U/L ALT 38 (6-50) U/L Alkaline Phosphatase 109 (38-126) U/L Total Protein 7.6 (6.3-8.2) g/dL Albumin 4.6 (3.5-5.1) g/dL Lipase 39 (23-300) U/L Urine Color Yellow (Yellow) Urine Appearance Clear (Clear) Urine pH 6.5 (5.0-9.0) Ur Specific [place] 1.028 (1.001-1.035) Urine Protein Negative (Negative) mg/dL Urine Glucose (UA) 3+ H (Negative) mg/dL Urine Ketones 1+ H (Negative) mg/dL Ur Blood (Man) Trace (Negative) Urine Nitrate Negative (Negative) Urine Bilirubin Negative (Negative) Urine Urobilinogen 0.2 (<2.0) mg/dL Leukocyte Esterase Rfl Negative (Negative) BETH/UL Urine RBC 0-2 (0-2) /hpf Urine WBC 0-5 (0-3) /hpf Ur Squamous Epith Cells None seen (Few) /hpf Urine Bacteria None seen /hpf Urine Casts 0-2 Imaging Data Radiologist's impression: ITS Impressions Neck/Chest/Abdomen/Pelvis CT 06/20/25 12:25 IMPRESSION: 1. No acute cardiopulmonary disease or evident ingested foreign bodies in the airway or alimentary canal. 2. Mildly aneurysmal ascending thoracic aorta measuring up to 4.4 cm. 3. No acute intra-abdominal/pelvic process. Discharge Plan Discharge Clinical Impression: Anxiety Patient Disposition: Home Condition: Stable Instructions: Antibiotic Form, Anxiety (ED) Patient Language: Macedonian Prescriptions: New lorazepam [Ativan] 0.5 mg tablet 0.5 mg PO TID PRN (Reason: anxiety) Qty: 14 0RF No Action methotrexate sodium 2.5 mg tablet 15 mg PO WEEKLY Rx Instructions: Friday evening folic acid 1 mg tablet 1 mg PO DAILY Humulin R U-500 (Conc) Kwikpen 500 unit/mL (3 mL) insulin pen See Rx Instructions subcut DAILY MDD 145 90 Days Qty: 27 1RF Rx Instructions: 100 units before breakfast, 35 units before dinner lisinopril 2.5 mg tablet 2.5 mg PO DAILY Qty: 90 1RF clopidogrel 75 mg tablet 75 mg PO DAILY (DME) pen needle, diabetic [BD Ultra-Fine Gabrielle Pen Needle] 32 gauge x 5/32 needle See Rx Instructions .Route Qty: 300 1RF Rx Instructions: As directed prednisone 5 mg tablet 5 mg PO Q12H sertraline 100 mg tablet 150 mg PO DAILY Qty: 135 1RF buspirone 10 mg tablet 10 mg PO TID Qty: 90 1RF spironolactone 25 mg tablet 12.5 mg PO DAILY ondansetron 4 mg tablet,disintegrating 4 mg PO Q8H PRN (Reason: nausea and vomiting) Qty: 10 0RF ferrous sulfate 325 mg (65 mg iron) tablet 325 mg PO DAILY pantoprazole 40 mg tablet,delayed release (DR/EC) See Rx Instructions .ROUTE .COMPLEX Qty: 90 1RF Dose Instruction: TAKE 1 TABLET BY MOUTH ONCE DAILY IN THE MORNING Rx Instructions: TAKE 1 TABLET BY MOUTH ONCE DAILY IN THE MORNING atorvastatin 40 mg tablet See Rx Instructions .ROUTE .COMPLEX Qty: 90 1RF Dose Instruction: Take 1 tablet by mouth once daily Rx Instructions: Take 1 tablet by mouth once daily cholecalciferol (vitamin D3) 25 mcg (1,000 unit) tablet 25 mcg PO DAILY nitroglycerin 0.6 mg tablet, sublingual 0.6 mg sublingual Q5-15M PRN (Reason: chest pain) Rx Instructions: do not exceed 3 doses per episode gabapentin 300 mg capsule 300 mg PO TID Jardiance 25 mg tablet 25 mg PO DAILY Eliquis 5 mg tablet 5 mg PO BID Follow-up/Referrals: Eric Pretty MD [Primary Care Provider] - Time of Disposition: 13:59
[2025-06-20 14:10] VITALS: BP 130/82; PULSE 80; RESP 16; O2SAT 98
== END 2025-06-20 14:10 | disposition home or self-care (01) ==
PROVIDERS: Emergency Provider Family Medicine; PCP Internal Medicine
DX: F41.8 Other specified anxiety disorders (principal); I10 Essential (primary) hypertension; I48.91 Unspecified atrial fibrillation; I25.2 Old myocardial infarction; I25.10 Atherosclerotic heart disease of native coronary artery without angina pectoris; E11.42 Type 2 diabetes mellitus with diabetic polyneuropathy; E11.319 Type 2 diabetes mellitus with unspecified diabetic retinopathy without macular edema; E78.5 Hyperlipidemia, unspecified; G47.33 Obstructive sleep apnea (adult) (pediatric); D64.9 Anemia, unspecified; N40.0 Benign prostatic hyperplasia without lower urinary tract symptoms; K21.9 Gastro-esophageal reflux disease without esophagitis; M06.9 Rheumatoid arthritis, unspecified; M19.90 Unspecified osteoarthritis, unspecified site; F17.290 Nicotine dependence, other tobacco product, uncomplicated; I71.21 Aneurysm of the ascending aorta, without rupture; Z95.0 Presence of cardiac pacemaker; Z95.5 Presence of coronary angioplasty implant and graft; Z87.01 Personal history of pneumonia (recurrent); Z85.46 Personal history of malignant neoplasm of prostate; Z86.0100 Personal history of colon polyps, unspecified; Z86.718 Personal history of other venous thrombosis and embolism; Z96.1 Presence of intraocular lens; Z98.42 Cataract extraction status, left eye; Z98.41 Cataract extraction status, right eye; Z90.49 Acquired absence of other specified parts of digestive tract; Z79.4 Long term (current) use of insulin; Z79.02 Long term (current) use of antithrombotics/antiplatelets; Z79.899 Other long term (current) drug therapy; Z79.01 Long term (current) use of anticoagulants; Z79.84 Long term (current) use of oral hypoglycemic drugs
CPT/HCPCS: 36415; 70490; 71250; 74176; 80053; 81001; 83690; 85025; 96361; 96374; 96375; 99284; J2060; J2270; J2405; J7030